=== PATIENT | female | born 1945 | race Caucasian/White ===

== ENCOUNTER 2017-05-06 06:00 | Day surgery (SDC) | payer MEDICARE, OTHER, SELFPAY ==
--- NOTE | 2017-05-06 | COLBX_PTH ---
PATIENT: ANNETTE BOSS LOC: EN U#:[id number] AGE/SX: 71/F ROOM: RE05/06/[address]: Dr. Edenilson Cardoza MD : 1945 BED: DIS: 05/06/2017 SPEC #: [id number] RECD: 05/06/17 15:39 STATUS: LAUREN ARMANDO #: [id number] JUN: 05/06/17 00:[address]: Edenilson Cardoza DEPT: SURGICAL PATHOLOGY RECD BY: Joesph Raza ENTERED: 05/06/17 15:39 SP TYPE: COLON BX OTHR DR: Dr. Miles Reid MD Tissues: Ascending colon Procedures: Surgery Specimen Level IV HEADER OPERATION: Colonoscopy PRE-OP DIAGNOSIS: Screening TISSUE SUBMITTED: Ascending colon biopsy, mucosal fullness MICROSCOPIC DIAGNOSIS Ascending colon, biopsy: Fragment of colonic mucosa, no pathologic diagnosis. SJ:conchis 05/07/17 MICROSCOPIC DESCRIPTION Slides are reviewed. GROSS DESCRIPTION Received in fixative is one container labeled with the patient's name and designated ascending colon biopsy. The specimen consists of one irregular fragment of light montemayor soft tissue that measures 0.2 x 0.2 x 0.1 cm. The specimen is totally submitted in one cassette. / AM:conchis 05/06/17 TC:4 CPT: 65180
[2017-05-06 06:47] VITALS: BP 121/73; PULSE 59; RESP 18; O2SAT 99; BMI 43.1
--- NOTE | 2017-05-06 07:05 | PCM.HP.STD ---
Problem List (1) Screening for intestinal cancer Status: Acute History of Present Illness Date of Admission: 05/06/17 The patient is a 71 year old F who presents for screening colonoscopy. Her previous colonoscopy was 10 years ago. She denies bright red blood per rectum or melena. She is noted to be obese and claims that she has not had any weight loss. She otherwise enjoys stable health. She denies any personal history of colon polyps or colon cancer. Past Medical History Past Medical History (Chronic Problems): Chronic Problems Fibromyalgia (Chronic) Rheumatoid arthritis (Chronic) Recurrent pancreatitis (Chronic) History of atrial fibrillation (Chronic) status post ablation Hyperlipidemia (Chronic) Gastroesophageal reflux disease (Chronic) Familial combined hyperlipidemia (Chronic) Spinal stenosis of lumbar region (Chronic) Morbid obesity with BMI of 40.0-44.9, adult (Chronic) Benign hypertension (Chronic) Allergies Penicillins Allergy (Verified 05/06/17 06:43) Hives Home Medications: Ambulatory Orders Medication Instructions Recorded Ezetimibe [Zetia] 10 mg PO QHS 04/06/13 Amlodipine [Norvasc] 2.5 mg PO DAILY 07/17/15 Etanercept [Enbrel] 50 mg SQ WE 07/17/15 Metoprolol Tartrate [Lopressor 50 mg PO BID 07/17/15 (beta lenora)] Aspirin E.C. [Ecotrin] 81 mg PO DAILY@0800 tablet 07/27/15 Calcium Carb/Vitamin D3/Vit K1 1 each PO DAILY 08/14/16 [Viactiv Soft Chew Tablet] Esomeprazole Mag Trihydrate 20 mg PO BID 08/14/16 [Nexium] Oxybutynin [Ditropan] 5 mg PO BID 08/14/16 Ranitidine [Zantac] 300 mg PO QHS 08/14/16 Oxycodone HCl/Acetaminophen 1 tablet PO BID 05/01/17 [Percocet 5-325] Surgical History: cholecystectomy, total knee arthroplasty - left Smoking Status: Never smoker - *Family History Maternal History Items: Renal Disease - age 70 Paternal History Items: - - age 45 cirrhosis Review of Systems Constitutional: Denies: Anorexia Eyes: Denies: Blurred vision HEENT: Denies: Difficulty Swallowing Cardiovascular: Denies: Chest Pain Respiratory: Denies: Cough Gastrointestinal: Denies: Abdominal Pain Genitourinary: Denies: Dysuria Musculoskeletal: Denies: Leg Pain Neurological: Denies: Balance problems Endocrine: Denies: Change in Body Habitus VTE Information - Inpt Only VTE Present on Admission: No Patient Problems: Active and Suspected Problems Screening for intestinal cancer (Acute) - Physical Exam General: Alert, Oriented x3, Cooperative, No apparent distress HEENT: Atraumatic Oral: Moist Mucosa Neck: Supple Lungs: Clear to auscultation Cardiovascular: Regular rate Abdomen: Bowel Sounds Present, Soft, Non Tender Extremities: No Calf Tenderness Skin: No rashes Musculoskeletal: No Tenderness to Palpation of Joints or Extremities Lymphatic: No Cervical, Supraclavicular, or Inguinal Adenopathy Neurological: Cranial nerves II-XII grossly intact Psych/Mental Status: Normal Affect Vital Signs Pulse Resp BP Pulse Ox 59 L 18 121/73 H 99 05/06/17 06:47 05/06/17 06:47 05/06/17 06:47 05/06/17 06:47 Oxygen Delivery Method Room Air Weight: 235 lb 10.786 oz Body Mass Index (BMI) 43.1 Assessment/Plan Active and Suspected Problems Screening for intestinal cancer (Acute) Patient presents for screening colonoscopy. We have discussed the technique, benefits, risks, alternatives. She has had an opportunity to ask and have questions answered. We will proceed at her discretion. Edenilson Cardoza M.D., F.A.C.S.
--- NOTE | 2017-05-06 07:31 | PCM.OPRPT ---
Problem List (1) Screening for intestinal cancer Status: Acute Report of Operation Date of Procedure: 05/06/17 Pre-Operative Diagnosis: Screening for intestinal malignancy Post-Operative Diagnosis: Diminutive fullness of the distal ascending colon mucosa. Scattered pancolonic diverticulosis. Extensive descending and sigmoid diverticulosis. Grade 2-3 internal hemorrhoids Surgery/Procedure Performed:: Colonoscopy with ascending colon biopsy Description of Surgical Findings:: Informed consent was obtained. 71-year-old female was taken to the endoscopy suite. She was placed in a left lateral decubitus position. Throughout the procedure total 100 mg of Demerol and 5 mg of Versed were given as intravenous sedation. Digital rectal exam demonstrated some moderate hemorrhoidal changes. Slightly tight anal tone. No mass lesions. Flexible colonoscope inserted the rectum advanced through a tortuous sigmoid colon extensively involved with diverticulosis. The scope was advanced through the transverse colon and with transabdominal pressure and placing the patient supine the scope was advanced to the cecum. Visualization of the cecum was challenging due to the patient's body habitus. I felt that I got adequate visualization. The scope was carefully withdrawn and in the distal ascending colon there was a small area of mucosal fullness. Did not actually look to be a polyp but I used a cold forcep to biopsy this area. Hemostasis was intact. The scope was then further withdrawn through the transverse colon descending colon and sigmoid colon. There is been pancolonic diverticulosis identified scattered in the ascending colon transverse colon but it became very extensive in the descending and sigmoid colon. The scope was carefully withdrawn without additional abnormality was retroflexed within the rectum and the hemorrhoidal changes noted. Excess fluid and air was aspirated free the procedure was completed with the patient tolerating it well. Impression Minimal mucosal fullness of the ascending colon with pathology pending. Likely benign. Likely not a polyp. Pancolonic diverticulosis with extensive diverticulosis of the descending and sigmoid colon Pending pathology will recommend follow-up examination colonoscopy in 10 years. Her previous colonoscopy was 10 years prior. Cc: Dr. Reid Procedure was initiated at 0709. The scope inserted 0712. The cecum reached at 0722. The procedure completed at 0728. Edenilson Cardoza M.D., F.A.C.S. Type of Anesthesia:: IV Sedation
[2017-05-06 07:35] VITALS: BP 102/59; BP 121/73; PULSE 65; RESP 18; TEMP 35.9; O2SAT 96
[2017-05-06 07:40] VITALS: BP 110/65; BP 121/73; PULSE 63; RESP 18; O2SAT 94
[2017-05-06 07:45] VITALS: BP 117/105; BP 121/73; PULSE 64; RESP 18; O2SAT 97
[2017-05-06 07:46] VITALS: BP 110/78; BP 121/73; PULSE 67; RESP 18; TEMP 35.8; O2SAT 95
[2017-05-06 07:55] VITALS: BP 121/73
== END 2017-05-06 08:10 | disposition home or self-care (01) ==
LOC: EN 06:00 → AC 06:05
PROVIDERS: Family Provider Family Medicine; PCP Family Medicine; Visit Provider Surgery
PROC: 0DJD8ZZ Inspection of Lower Intestinal Tract, Via Natural or Artificial Opening Endoscopic (ICD-10-PCS; CPT 45378; principal; 2017-05-06 07:25)
DX: Z12.11 Encounter for screening for malignant neoplasm of colon (principal); K57.30 Diverticulosis of large intestine without perforation or abscess without bleeding; K64.8 Other hemorrhoids; M79.7 Fibromyalgia; M06.9 Rheumatoid arthritis, unspecified; Z87.19 Personal history of other diseases of the digestive system; Z86.79 Personal history of other diseases of the circulatory system; E78.4 Other hyperlipidemia; K21.9 Gastro-esophageal reflux disease without esophagitis; M48.061 Spinal stenosis, lumbar region without neurogenic claudication; I10 Essential (primary) hypertension; E66.01 Morbid (severe) obesity due to excess calories; Z68.41 Body mass index [BMI] 40.0-44.9, adult; Z79.82 Long term (current) use of aspirin; Z90.49 Acquired absence of other specified parts of digestive tract; Z96.652 Presence of left artificial knee joint; Z79.899 Other long term (current) drug therapy
CPT/HCPCS: 45380; 88305; J7120

== ENCOUNTER → 2017-05-21 10:02 | Outpatient (CLI) | payer MEDICARE, OTHER, SELFPAY ==
[2017-05-21 12:23] LABS: Amphetamine Urine VISTA NEGATIVE (<1000 ng/mL); Barbiturate Urine VISTA NEGATIVE (< 200 ng/mL); Benzodiazepine Urine VISTA NEGATIVE (< 200 ng/mL); Cocaine Urine VISTA NEGATIVE (< 300 ng/mL); Ecstacy Urine VISTA NEGATIVE (< 500 ng/mL); Methadone Urine VISTA NEGATIVE (< 300 ng/mL); PCP Urine VISTA NEGATIVE (< 25 ng/mL); THC Urine VISTA NEGATIVE (< 50 ng/mL); Vista UDS pH Range 5
== END ==
PROVIDERS: Family Provider Family Medicine; PCP Family Medicine; Visit Provider Anesthesiology Pain Medicine
DX: F11.20 Opioid dependence, uncomplicated (principal)
CPT/HCPCS: 80307

== ENCOUNTER → 2017-08-12 09:46 | Outpatient (CLI) | payer MEDICARE, OTHER, SELFPAY ==
[2017-08-12 12:35] LABS: Absolute Neutrophil Count 2.7 X10^3/uL (2.0-7.7); Basophil# 0.01 X10^3/uL; Basophil% 0.2 % (0-1); Eosinophil# 0.24 X10^3/uL; Hematocrit 40.9 % (37-47); Hemoglobin 13.2 g/dl (12.0-15.0); Mean Corp Hgb Conc 32.3 g/gl (32-36); Mean Corpuscular Hgb 29.2 pg (27.0-32.0); Mean Corpuscular Volume 90.5 fL (81-99); Mean Platelet Vol. 10.3 fl (6.2-12.0); Monocyte# 0.52 X10^3/uL; Monocyte% 10.8 % (0-10); Neutrophil # 2.74 X10^3/uL (2.7-7.7); Platelet Count 178 K/mm3 (150-450); RBC Distribution Width CV 14.1 % (11.6-14.6); RBC Distribution Width SD 46.6 fl (35.1-43.9); Red Blood Count 4.52 M/mm3 (4.2-5.4); White Blood Count 4.8 K/mm3 (4.4-11.0)
[2017-08-12 12:36] LABS: POSITIVE COUNT NO; POSITIVE DIFFERENTIAL NO; POSITIVE MORPHOLOGY NO
[2017-08-12 14:14] LABS: AST(SGOT) 21 U/L (15-37); Alanine Aminotransfer ALT/SGPT 32 U/L (13-56); Albumin, Serum 3.7 g/dL (3.2-5.0); Alkaline Phosphatase 119 U/L (45-117); Anion Gap 5 (5-15); BUN 14 mg/dL (7-18); BUN/Creat Ratio 14.1 RATIO (10-20); Calcium,Total 9.2 mg/dL (8.5-10.1); Chloride 107 mmol/L (98-107); Cholesterol 180 mg/dL (200); Creatinine, Serum 0.99 mg/dL (0.55-1.02); EST Glomerular Filtration Rate 58 mL/min (>60); Est Glom Filt Rate - Afr Amer 70 mL/min (>60); Globulin 3.6 g/dL (2.2-4.2); Glucose 101 mg/dL (74-106); High Density Lipoprotein 44 mg/dL; Potassium 4.2 mmol/L (3.5-5.1); Protein, Total 7.3 g/dL (6.4-8.2); Sodium Level 141 mmol/L (136-145); Triglycerides 153 mg/dL; Very Low Density Lipoprotein 31 mg/dL (5-40)
== END ==
PROVIDERS: Family Provider Family Medicine; PCP Family Medicine; Visit Provider Internal Medicine Cardiovascular Disease
DX: I10 Essential (primary) hypertension (principal); I34.1 Nonrheumatic mitral (valve) prolapse; R00.2 Palpitations; E78.5 Hyperlipidemia, unspecified; M06.09 Rheumatoid arthritis without rheumatoid factor, multiple sites; M79.7 Fibromyalgia; M17.0 Bilateral primary osteoarthritis of knee; K76.0 Fatty (change of) liver, not elsewhere classified; Z79.899 Other long term (current) drug therapy
CPT/HCPCS: 36415; 80048; 80061; 80076; 85025

== ENCOUNTER → 2017-08-22 11:47 | Outpatient (CLI) | payer MEDICARE, OTHER, SELFPAY ==
--- NOTE | 2017-08-22 11:51 | BI_ITS ---
MAMMOGRAPHY - BILATERAL SCREENING REASON FOR EXAM: Female, 71 years old. Routine annual screening examination. PERTINENT HISTORY: Sister with breast cancer. TECHNIQUE: Digital bilateral breast livia (3D mammographic acquisition) in the CC and MLO projections. 2-D mediolateral oblique (MLO) and craniocaudad (CC) views of both breasts were obtained. CAD: Full Field Digital Mammography with Computer Added Detection was performed. COMPARISON: Comparison is made with prior study dated August 05, 2016 and June 14, 2015 FINDINGS: Breast Composition: There are scattered areas of fibroglandular density. There are no dominant masses or suspicious calcifications. Stable 1 cm well-defined nodule in the upper anterior lateral portion of the right breast. No other significant abnormalities are identified. There has been no significant change since the prior study. BI/SCREENING MAMM (CAD), BILAT IMPRESSION: Stable bilateral screening mammogram. Yearly follow-up mammogram recommended. (A) ASSESSMENT CATEGORY: BIRADS Category 2: Benign. A letter regarding these results will be sent to the patient by the facility within 30 days. Approximately 10% of breast cancers are not detected by mammography. A normal mammogram should not delay biopsy of a clinically suspicious abnormality. [id number] Electronically Signed: Wilman Louise MD at 13:58 EDT Tel [phone], Service support ,
== END ==
PROVIDERS: Family Provider Family Medicine; PCP Family Medicine; Visit Provider Family Medicine
DX: Z12.31 Encounter for screening mammogram for malignant neoplasm of breast (principal)
CPT/HCPCS: 77063; 77067

== ENCOUNTER → 2017-09-12 11:20 | Outpatient (CLI) | payer MEDICARE, OTHER, SELFPAY ==
--- NOTE | 2017-09-12 11:23 | RAD_ITS ---
STUDY: X-RAY - CERVICAL SPINE REASON FOR EXAM: Female, 71 years old. Neck pain radiating into right shoulder, no known injury TECHNIQUE: 5 view(s) of the cervical spine were obtained. COMPARISON: None FINDINGS: Normal anterior atlantoaxial articulation. Normal odontoid process. Normal cervical lordosis. There is endplate spondylosis from C4 to C6. There is narrowing of the C4-5, C5-6, and C6-7 disc spaces. There is a 2 mm posterior subluxation of C4 relative to C3 and C5. There is multi-level osseous foraminal stenosis. The soft tissue structures are unremarkable. RAD/Cerv Spine 4 or 5 Views IMPRESSION: Cervical degenerative changes as detailed above. Electronically Signed: Celso Ayala MD at 20:18 EDT , Service support ,
== END ==
PROVIDERS: Family Provider Family Medicine; PCP Family Medicine; Visit Provider Anesthesiology Pain Medicine
DX: M54.2 Cervicalgia (principal)
CPT/HCPCS: 72050

== ENCOUNTER → 2017-09-25 15:31 | Outpatient (CLI) | payer OTHER, MEDICARE, SELFPAY ==
[2017-09-25 17:25] LABS: Absolute Lymphocyte Count 1.64 X10^3/ul (0.83-4.51); Absolute Neutrophil Count 5.7 X10^3/uL (2.0-7.7); Basophil# 0.01 X10^3/uL; Basophil% 0.1 % (0-1); Eosinophil# 0.24 X10^3/uL; Eosinophils% 2.9 % (0-5); Hematocrit 44.7 % (37-47); Hemoglobin 14.5 g/dl (12.0-15.0); Lymphocyte # 1.64 X10^3/ul (4.0); Lymphocyte % 19.6 % (19-41); Mean Corp Hgb Conc 32.4 g/gl (32-36); Mean Corpuscular Hgb 29.1 pg (27.0-32.0); Mean Corpuscular Volume 89.8 fL (81-99); Mean Platelet Vol. 10.4 fl (6.2-12.0); Monocyte# 0.79 X10^3/uL; Monocyte% 9.4 % (0-10); Neutrophil # 5.68 X10^3/uL (2.7-7.7); Neutrophil % 67.8 % (47-70); Platelet Count 232 K/mm3 (150-450); RBC Distribution Width CV 14.2 % (11.6-14.6); RBC Distribution Width SD 46.2 fl (35.1-43.9); Red Blood Count 4.98 M/mm3 (4.2-5.4); White Blood Count 8.4 K/mm3 (4.4-11.0)
[2017-09-25 17:31] LABS: POSITIVE COUNT NO; POSITIVE DIFFERENTIAL NO; POSITIVE MORPHOLOGY NO
[2017-09-25 18:06] LABS: ALB/GLOB Ratio 0.9 RATIO (0.9-2.4); AST(SGOT) 18 U/L (15-37); Alanine Aminotransfer ALT/SGPT 30 U/L (13-56); Albumin, Serum 3.7 g/dL (3.2-5.0); Alkaline Phosphatase 115 U/L (45-117); Amylase 37 U/L (25-115); Anion Gap 7 (5-15); BUN 19 mg/dL (7-18); BUN/Creat Ratio 16.4 RATIO (10-20); Calcium,Total 9.3 mg/dL (8.5-10.1); Chloride 106 mmol/L (98-107); Creatinine, Serum 1.16 mg/dL (0.55-1.02); EST Glomerular Filtration Rate 49 mL/min (>60); Est Glom Filt Rate - Afr Amer 59 mL/min (>60); Globulin 4.2 g/dL (2.2-4.2); Glucose 114 mg/dL (74-106); Lipase 213 U/L (73-393); Potassium 4.1 mmol/L (3.5-5.1); Protein, Total 7.9 g/dL (6.4-8.2); Sodium Level 143 mmol/L (136-145)
== END ==
PROVIDERS: Family Provider Family Medicine; PCP Family Medicine; Visit Provider Family Medicine
DX: R10.10 Upper abdominal pain, unspecified (principal)
CPT/HCPCS: 36415; 80053; 82150; 83690; 85025

== ENCOUNTER → 2017-12-10 11:06 | Outpatient (CLI) | payer OTHER, MEDICARE, SELFPAY ==
--- NOTE | 2017-12-10 11:10 | RAD_ITS ---
STUDY: X-RAY - THORACIC SPINE REASON FOR EXAM: Female, 71 years old. Back pain TECHNIQUE: 2 view(s) of the thoracic spine were obtained. COMPARISON: 06/19/2016 FINDINGS: Normal kyphosis of the thoracic spine. There is no substantial scoliosis. There is multilevel endplate spondylosis of the thoracic vertebrae. There is multilevel disc space narrowing of the thoracic spine. The soft tissue structures are unremarkable. RAD/Thoracic Spine 3 Views IMPRESSION: Degenerative changes without acute findings Electronically Signed: Simon Garcia DO at 11:12 EDT Tel , Service support ,
== END ==
PROVIDERS: Family Provider Family Medicine; PCP Family Medicine; Referring Provider Anesthesiology Pain Medicine; Visit Provider Anesthesiology Pain Medicine
DX: M54.9 Dorsalgia, unspecified (principal)
CPT/HCPCS: 72072

== ENCOUNTER → 2018-01-19 09:58 | Outpatient (CLI) | payer MEDICARE, OTHER, SELFPAY ==
[2018-01-05 11:23] VITALS: BMI 41.1
[2018-01-19 12:09] LABS: Absolute Lymphocyte Count 1.27 X10^3/ul (0.83-4.51); Absolute Neutrophil Count 3.3 X10^3/uL (2.0-7.7); Basophil# 0.01 X10^3/uL; Basophil% 0.2 % (0-1); Eosinophil# 0.22 X10^3/uL; Eosinophils% 4.2 % (0-5); Hematocrit 42.2 % (37-47); Hemoglobin 13.5 g/dl (12.0-15.0); Lymphocyte # 1.27 X10^3/ul (4.0); Lymphocyte % 24.1 % (19-41); Mean Corpuscular Hgb 28.9 pg (27.0-32.0); Mean Corpuscular Volume 90.4 fL (81-99); Mean Platelet Vol. 10.2 fl (6.2-12.0); Monocyte% 9.5 % (0-10); Neutrophil # 3.27 X10^3/uL (2.7-7.7); Platelet Count 189 K/mm3 (150-450); RBC Distribution Width CV 15.7 % (11.6-14.6); RBC Distribution Width SD 51.7 fl (35.1-43.9); Red Blood Count 4.67 M/mm3 (4.2-5.4); White Blood Count 5.3 K/mm3 (4.4-11.0)
[2018-01-19 12:19] LABS: POSITIVE COUNT NO; POSITIVE DIFFERENTIAL NO; POSITIVE MORPHOLOGY NO
[2018-01-19 12:36] LABS: ALB/GLOB Ratio 0.9 RATIO (0.9-2.4); AST(SGOT) 28 U/L (15-37); Alanine Aminotransfer ALT/SGPT 41 U/L (13-56); Albumin, Serum 3.5 g/dL (3.2-5.0); Alkaline Phosphatase 183 U/L (45-117); Anion Gap 4 (5-15); BUN 13 mg/dL (7-18); BUN/Creat Ratio 14.6 RATIO (10-20); Calcium,Total 8.9 mg/dL (8.5-10.1); Chloride 108 mmol/L (98-107); Cholesterol 170 mg/dL (200); Creatinine, Serum 0.89 mg/dL (0.55-1.02); EST Glomerular Filtration Rate 66 mL/min (>60); Est Glom Filt Rate - Afr Amer 79 mL/min (>60); Glucose 105 mg/dL (74-106); High Density Lipoprotein 46 mg/dL; Potassium 4.1 mmol/L (3.5-5.1); Protein, Total 7.5 g/dL (6.4-8.2); Sodium Level 142 mmol/L (136-145); Triglycerides 146 mg/dL; Very Low Density Lipoprotein 29 mg/dL (5-40)
[2018-01-20 10:36] LABS: Bilirubin, Direct 0.17 mg/dL (0.00-0.30)
== END ==
PROVIDERS: Family Provider Family Medicine; PCP Family Medicine; Referring Provider Internal Medicine Cardiovascular Disease; Visit Provider Internal Medicine Cardiovascular Disease
DX: M06.09 Rheumatoid arthritis without rheumatoid factor, multiple sites (principal); M79.7 Fibromyalgia; M17.0 Bilateral primary osteoarthritis of knee; K75.0 Abscess of liver; E78.5 Hyperlipidemia, unspecified; Z79.899 Other long term (current) drug therapy
CPT/HCPCS: 36415; 80053; 80061; 82248; 85025

== ENCOUNTER → 2018-03-11 11:47 | Outpatient (CLI) | payer MEDICARE, OTHER, SELFPAY ==
[2018-03-06 12:14] VITALS: BMI 41.1
[2018-03-11 12:49] LABS: Amphetamine Urine VISTA NEGATIVE (<1000 ng/mL); Barbiturate Urine VISTA NEGATIVE (< 200 ng/mL); Benzodiazepine Urine VISTA NEGATIVE (< 200 ng/mL); Cocaine Urine VISTA NEGATIVE (< 300 ng/mL); Ecstacy Urine VISTA NEGATIVE (< 500 ng/mL); Methadone Urine VISTA NEGATIVE (< 300 ng/mL); PCP Urine VISTA NEGATIVE (< 25 ng/mL); THC Urine VISTA NEGATIVE (< 50 ng/mL); Vista UDS pH Range 5
--- OUTSIDE RECORDS SUMMARY | 2018-05-16 07:50 | XMS RPT_ITS ---
:1945 Author Organization OHIP Support Name Relationship Address Phone SABINO HALE Unavailable [address] + [address] [place] [address] R Unavailable Unavailable Unavailable SABINO HALE Unavailable [address] + [address] [place] [address] R Unavailable Unavailable Unavailable SABINO HALE Unavailable [address] + [address] [place] [address] R Unavailable Unavailable Unavailable SABINO HALE Unavailable [address] + [address] [place] [address] R Unavailable Unavailable Unavailable SABINO HALE Unavailable [address] + [address] [place] [address] R Unavailable Unavailable Unavailable SABINO HALE Unavailable [address] + [address] [place] [address] R Unavailable Unavailable Unavailable SABINO HALE Unavailable [address] + [address] [place] [address] R Unavailable Unavailable Unavailable SABINO HALE Unavailable [address] + [address] [place] [address] R Unavailable Unavailable Unavailable SABINO HALE Unavailable [address] + [address] [place] [address] R Unavailable Unavailable Unavailable SABINO HALE Unavailable [address] + [address] [place] [address] R Unavailable Unavailable Unavailable SABINO HALE Unavailable [address] + [address] [place] [address] R Unavailable Unavailable Unavailable SABINO HALE Unavailable [address] + [address] [place] [address] R Unavailable Unavailable Unavailable SABINO HALE Unavailable [address] + [address] [place] [address] R Unavailable Unavailable Unavailable ANASTASIIA HALEAN Unavailable [address] + [address] [place] [address] R Unavailable Unavailable Unavailable FAIR, SABINO Unavailable [address] [place] [address] R Unavailable Unavailable Unavailable FAIR, SABINO Unavailable [address] [place] [address] HARMONY HOLLAND Unavailable . + ., [place] . R Unavailable Unavailable Unavailable Care Team Providers Name Role Phone Xavier Dubois Attending Unavailable Reid, Miles Referring Unavailable SilvinoXavier Attending Unavailable Reid, Miles Referring Unavailable Nurse, Surgery Attending Unavailable Reid, Miles Referring Unavailable Reid, Miles Primary Care Unavailable Cebul, Edenilson Attending Unavailable Cebul, Edenilson Referring Unavailable Reid, Miles Primary Care Unavailable Cebul, Edenilson Attending Unavailable Cebul, Edenilson Referring Unavailable Reid, Miles Primary Care Unavailable Cebul, Edenilson Consulting Unavailable Basali, Ewa Attending Unavailable Basali, Ewa Referring Unavailable Reid, Miles Primary Care Unavailable Basali, Ewa Attending Unavailable Basali, Ewa Referring Unavailable Reid, Miles Primary Care Unavailable Moodispaw, Miles Attending Unavailable Moodispaw, Miles Referring Unavailable Reid, Miles Primary Care Unavailable Vellanki, Ying Consulting Unavailable Reid, Miles Attending Unavailable Reid, Miles Referring Unavailable Reid, iMles Primary Care Unavailable Basali, Ewa Attending Unavailable Basali, Ewa Referring Unavailable Reid, Miles Primary Care Unavailable Keli, Randell Richardson Attending Unavailable Keli, Randell Richardson Referring Unavailable Reid, Miles Primary Care Unavailable Reilly Muñoz Attending Unavailable Reid, Miles Primary Care Unavailable Basali, Ewa Attending Unavailable Basali, Ewa Referring Unavailable Reid, Miles Primary Care Unavailable SchraderMarika Attending Unavailable Moodispaw, Miles Attending Unavailable Reid, Miles Referring Unavailable Moodispaw, Miles Attending Unavailable Moodispaw, Miles Referring Unavailable Reid, Miles Primary Care Unavailable Vellanki, Ying Consulting Unavailable PROBLEMS PROBLEMS DATE TYPE CONDITION / CODE ATTENDING STATUS SOURCE 03/11/2018 Unknown F11.20 - Opioid Basali, Ayman Active [place] dependence, Community uncomplicated / Hospital F11.20(ICD-10) Repository 03/06/2018 Unknown J20.9 - Acute Xavier Dubois Active [place] bronchitis, Community unspecified / Hospital J20.9(ICD-10) Repository 01/19/2018 Unknown Z79.899 - Other long MoodisMiles shultz Active [place] term (current) drug Community therapy / Hospital Z79.899(ICD-10) Repository 01/19/2018 Unknown M06.09 - Rheumatoid MoodispaMiles wagner Active [place] arthritis without Community rheumatoid factor, Hospital multiple sites / Repository M06.09(ICD-10) 01/19/2018 Unknown M79.7 - Fibromyalgia MoodispaMiles wagner Active [place] / M79.7(ICD-10) [facility] Hospital Repository 01/19/2018 Unknown M17.0 - Bilateral MoodispaMiles wagner Active [place] primary Community osteoarthritis of Hospital knee / M17.0(ICD-10) Repository 01/19/2018 Unknown K75.0 - Abscess of MoodisMiles shultz Active [place] liver / Community K75.0(ICD-10) Hospital Repository 01/19/2018 Unknown E78.5 - MoodispaMiles wagner Active [place] Hyperlipidemia, Community unspecified / Hospital E78.5(ICD-10) Repository 01/05/2018 Unknown M54.9 - Dorsalgia, Basali, Ayman Active [place] unspecified / Community M54.9(ICD-10) Hospital Repository 08/12/2017 Unknown I10 - Essential MoodispaMiles wagner Active [place] (primary) Community hypertension / Hospital I10(ICD-10) Repository 08/12/2017 Unknown I34.1 - Nonrheumatic MoodispaMiles wagner Active [place] mitral (valve) [facility] prolapse / Hospital I34.1(ICD-10) Repository 08/12/2017 Unknown R00.2 - Palpitations MoodispaMiles wagner Active [place] / R00.2(ICD-10) [facility] Hospital Repository 08/12/2017 Unknown K76.0 - Fatty MoodispaMiles wagner Active [place] (change of) liver, Community not elsewhere Hospital classified / Repository K76.0(ICD-10) PROCEDURES PROCEDURES No Procedure Records FoundRESULTS RESULTS URINE DRUG SCREEN Collected: 03/11/2018 Status: F Source: [place] (VISTA) 11:52 AM [facility] REPOSITORY Order Comment: List of Drugs Taken or Suspected? UNK TYPE CODE TESTS RESULT OUT OF RANGE REFERENCE UNITS LAB L505.0075 TO BE Normal CONFIRMED Result Comment: CONFIRMATORY TESTING FOR ALL POSITIVE URINE DRUG SCREEN RESULTS WILL ONLY BE SENT OUT UPON PHYSICIAN ORDER. VISTA Urine Drug Screen methods provide only preliminary analytical test results. A more specific alternate chemical method must be used in order to obtain a confirmed analytical result. Gas chromatography/mass spectrometery (GC/MS) is the preferred confirmatory method. Clinical consideration and professional judgement should be applied to any drug of abuse test result, particularly when preliminary positive results are used. URINE TCA TESTING MUST BE ORDERED SEPARATELY. USE TEST MNEMONIC: [facility] LAB L505.5005 VISTA UDS PH 5 Normal LAB L505.5015 <1000 ng/mL AMPHETAMINES Normal NEGATIVE LAB L505.5025 < 200 ng/mL BARBITIURATES Normal NEGATIVE LAB L505.5035 < 200 ng/mL BENZODIAZIPINE Normal NEGATIVE LAB L505.5045 < 300 ng/mL COCAINE Normal NEGATIVE LAB L505.5055 < 500 ng/mL ECSTACY Normal NEGATIVE LAB L505.5065 < 300 ng/mL METHADONE Normal NEGATIVE LAB L505.5075 < 300 High ng/mL OPIATES POSITIVE LAB L505.5085 < 25 ng/mL PCP Normal NEGATIVE LAB L505.5095 < 50 ng/mL THC Normal NEGATIVE Performed By: #### L505.5000 #### [facility] [address] [place], [address] MISCELLANEOUS LAB Collected: 03/11/2018 Status: F Source: [place] PROCEDURE 11:52 AM [facility] REPOSITORY Order Comment: Test(s) Ordered: [id number] URINE DRUG SCREEN TYPE CODE TESTS RESULT OUT OF RANGE REFERENCE UNITS LAB L801.1541 Normal [facility] [place] Result Comment: TEST RESULT UNITS REF INTERVAL [id number] 6+Oxycodone-Bund Amphetamines, Urine Negative ng/mL Pdrhdz=1450 Amphetamine test includes Amphetamine and Methamphetamine. Barbiturate Negative ng/mL Fbbnzt=661 Benzodiazepines Negative ng/mL Brjsuf=395 Cannabinoids Negative ng/mL Cutoff=20 Cocaine (Metabolite) Negative ng/mL Jqkgnb=925 Opiates Negative ng/mL Sawukt=817 Opiate test includes Codeine, Morphine, Hydromorphone, Hydrocodone. Please Note: Confirmation performed by Mass Spectrometry Oxycodone/Oxymorph Positive Pmqlhz=089 Test includes Oxycodone and Oxymorphone Oxycodone Positive Oxycodone (GC/MS) 2965 ng/mL Jxoobl=978 Oxymorphone Positive Oxymorphone (GC/MS) >3000 ng/mL Vvnvqt=736 TESTING PERFORMED AT [facility]. ORIGINAL REPORT ON FILE IN LAB CONTAINS ADDITIONAL TEST SITE INFORMATION. Performed By: #### L801.1541 #### [facility] [address] [place], [place], [address] URGENT CARE VISIT Observed: 03/06/2018 Status: F Source: [place] REPORT 12:48 PM [facility] REPOSITORY [facility] [address] [place], [place] [address] OFFICE VISIT Date of Service: 03/06/18 MR#: [id number] Acct: [id number] Name: HAWA BOSS Rep #: [id number] : 1945 Provider: Xavier DEL ROSARIO Age/Sex: 72/F Location[place] [facility] Status: Signed Intake Vital Signs03/06/18 Body Mass Index (BMI) 41.1 03/06/18 Height 5 ft 4 in Intake Visit Reasons: SINUS F/U? Chief Complaint: cough Liability Analyst Required: No Accompanied by: self Is patient in pain?: No Allergies Penicillins Allergy (Verified 03/06/18 12:14) Hives atorvastatin [From Lipitor] Adverse Reaction (Severe, Verified 03/06/18 12:14) Elevated LFT Medications Aspirin E.C. [Ecotrin] 81 mg PO DAILY@0800 tab 07/27/15 [Rx Confirmed 03/06/18] Esomeprazole Mag Trihydrate [Nexium] 20 mg PO BID 08/14/16 [History Confirmed 03/06/18] Ranitidine [Zantac] 300 mg PO QHS 08/14/16 [History Confirmed 03/06/18] Oxycodone HCl/Acetaminophen [Percocet 5-325] 1 tab PO BID 05/01/17 [History Confirmed 03/06/18] etanercept 50 mg/mL (0.98 mL) subcutaneous syringe 50 mg SC QWEEK 01/05/18 [History Confirmed 03/06/18] amlodipine 2.5 mg tablet 2.5 mg PO DAILY #90 tab 02/02/18 [Rx Confirmed 03/06/18] ezetimibe 10 mg tablet 10 mg PO QHS #90 tab 02/02/18 [Rx Confirmed 03/06/18] metoprolol tartrate 50 mg tablet 50 mg PO BID #180 tab 02/02/18 [Rx Confirmed 03/06/18] azithromycin 250 mg tablet See Rx Instructions PO .COMPLEX #6 tab 02/14/18 [Rx Confirmed 03/06/18] azithromycin 250 mg tablet See Rx Instructions PO .COMPLEX #6 tab 03/06/18 [Rx Confirmed 03/06/18] benzonatate 100 mg capsule 200 mg PO TID PRN #30 cap 03/06/18 [Rx Confirmed 03/06/18] PFSH Medical History Old myocardial infarction (Acute) Paroxysmal atrial fibrillation (Acute) Nonrheumatic mitral (valve) insufficiency (Acute) Nonrheumatic mitral (valve) prolapse (Acute) Screening for intestinal cancer (Acute) Recurrent pancreatitis (Chronic) Hyperlipidemia (Chronic) Familial combined hyperlipidemia (Chronic) Morbid obesity with BMI of 40.0-44.9, adult (Chronic) Benign hypertension (Chronic) Diverticulitis (Chronic) Fibromyalgia (Chronic) GERD (gastroesophageal reflux disease) (Chronic) Rheumatoid arthritis (Chronic) Spinal stenosis of lumbar region (Chronic) Surgical History H/O endoscopic retrograde cholangiopancreatography (Resolved) History of appendectomy (Resolved) History of back surgery (Resolved) History of cardiac radiofrequency ablation (Resolved 10/2008) History of cholecystectomy (Resolved) History of left knee replacement (Resolved) S/P lumbar fusion (Resolved) Family History Sister Hypertension Other Arthritis Cancer Diabetes Social History Smoking Status: Never smoker alcohol intake: never HPI HPI Chief Complaint: cough Details: HAWA BOSS, is a 72 F who presents to the office today for complaint of continued cough and congestion as well as upper airway tightness. Patient states that her nasal congestion, chest congestion and cough have improved somewhat since last visit however she feels as though she needs another round of antibiotics to feel better. She denies fever, chills, sweats. She describes her cough as minimally productive of green/yellow sputum however denies hemoptysis, shortness of breath or difficulty breathing. No other associated symptoms or alleviating/aggravating factors. ROS Const Constitutional: No fever(s), chills, headache(s), night sweats or abnormal sleep pattern ENT ENT: No headache(s) Resp Respiratory: Positive for cough Cough: Yes productive and pain with cough; no wheezing, hemoptysis or shortness of breath Cardio Cardiology: No chest pain at rest or shortness of breath Neuro Neurology: No headache(s) Psych Psychiatric: No abnormal sleep pattern Aller/Imm Allergy/Immunologic: No wheezing Exam Const General: cooperative, well developed HENMT Head: normal to inspection Ears: hearing grossly normal bilaterally Nose: nasal discharge Mouth: oral mucosae normal Throat: postnasal drainage Resp Effort AND Inspection: normal respiratory effort, no audible wheezes, not labored Auscultation: Bilateral: Clear to Auscultation Cardio Palpation: normal PMI Rate: regular rate Rhythm: regular rhythm Neuro General: alert, CN's II-XI intact bilaterally Psych Appearance: grossly normal Mental Status: mental status grossly normal Assessment AND Plan Problems 1. Acute bronchitis, unspecified organism J20.9 Plan Z-Diony and benzonatate as prescribed today. Encouraged to get plenty of rest, drink lots of clear liquids, and use Tylenol or Ibuprofen (unless contraindicated) for fever and comfort. Patient also educated on other symptomatic management techniques. To be seen in 7-10 days if no improvement; sooner if worsening of symptoms. Patient advised of potential red flags and when appropriate to report to the ED. Patient verbalized understanding and agreement with all the above. Medications New: azithromycin take 500 mg today (day 1), then 250 mg for 4 days (days 2-5) PO 6 tabs 0J20.9 RF Coding Level of Care Code Off vis,est,level 3 Diagnoses Acute bronchitis, unspecified organism J20.9 Bronchitis organism: unspecified organism 03/06/18 1248 <Electronically signed by Xavier Silvino PA> Date Xavier DEL ROSARIO Cosigner Signature: Date (if applicable) CC: URGENT CARE VISIT Observed: 02/14/2018 Status: F Source: [place] REPORT 11:53 AM [facility] REPOSITORY [facility] [address] [place] [address] [address] [place] [address] OFFICE VISIT Date of Service: 02/14/18 MR#: [id number] Acct: [id number] Name: HAWA BOSS Rep #: [id number] : 1945 Provider: Xavier DEL ROSARIO Age/Sex: 72/F Location: [facility] Status: Signed Intake Vital Signs02/14/18 Body Mass Index (BMI) 41.1 02/14/18 Height 5 ft 4 in Intake Visit Reasons: GREEN DRAINAGE Chief Complaint: Cough with drainage Liability Analyst Required: No Accompanied by: Self Is patient in pain?: No Allergies Penicillins Allergy (Verified 02/14/18 11:40) Hives atorvastatin [From Lipitor] Adverse Reaction (Severe, Verified 02/14/18 11:40) Elevated LFT Medications Aspirin E.C. [Ecotrin] 81 mg PO DAILY@0800 tab 07/27/15 [Rx Confirmed 02/14/18] Esomeprazole Mag Trihydrate [Nexium] 20 mg PO BID 08/14/16 [History Confirmed 02/14/18] Ranitidine [Zantac] 300 mg PO QHS 08/14/16 [History Confirmed 02/14/18] Oxycodone HCl/Acetaminophen [Percocet 5-325] 1 tab PO BID 05/01/17 [History Confirmed 02/14/18] etanercept 50 mg/mL (0.98 mL) subcutaneous syringe 50 mg SC QWEEK 01/05/18 [History Confirmed 02/14/18] amlodipine 2.5 mg tablet 2.5 mg PO DAILY #90 tab 02/02/18 [Rx Confirmed 02/14/18] ezetimibe 10 mg tablet 10 mg PO QHS #90 tab 02/02/18 [Rx Confirmed 02/14/18] metoprolol tartrate 50 mg tablet 50 mg PO BID #180 tab 02/02/18 [Rx Confirmed 02/14/18] azithromycin 250 mg tablet See Rx Instructions PO .COMPLEX #6 tab 02/14/18 [Rx Confirmed 02/14/18] methylprednisolone 4 mg tablets in a dose pack 4 mg PO PER PKG DIR 5 Days #21 tab 02/14/18 [Rx Confirmed 02/14/18] PFSH Medical History Old myocardial infarction (Acute) Paroxysmal atrial fibrillation (Acute) Nonrheumatic mitral (valve) insufficiency (Acute) Nonrheumatic mitral (valve) prolapse (Acute) Screening for intestinal cancer (Acute) Recurrent pancreatitis (Chronic) Hyperlipidemia (Chronic) Familial combined hyperlipidemia (Chronic) Morbid obesity with BMI of 40.0-44.9, adult (Chronic) Benign hypertension (Chronic) Diverticulitis (Chronic) Fibromyalgia (Chronic) GERD (gastroesophageal reflux disease) (Chronic) Rheumatoid arthritis (Chronic) Spinal stenosis of lumbar region (Chronic) Surgical History H/O endoscopic retrograde cholangiopancreatography (Resolved) History of appendectomy (Resolved) History of back surgery (Resolved) History of cardiac radiofrequency ablation (Resolved 10/2008) History of cholecystectomy (Resolved) History of left knee replacement (Resolved) S/P lumbar fusion (Resolved) Family History Sister Hypertension Other Arthritis Cancer Diabetes Social History Smoking Status: Never smoker alcohol intake: never HPI HPI Chief Complaint: Cough with drainage Details: HAWA BOSS, is a 72 F who presents to the office today for complaint of cough and congestion for the past week. Patient states her cough is productive of green/yellow sputum however denies hemoptysis, shortness of breath or difficulty breathing. Patient does state that she is on Enbrel for rheumatoid arthritis which caused her to get bronchitis multiple times throughout the winter periods. She denies fever, chills, sweats. No nausea, vomiting, diarrhea. No other associated symptoms or alleviating/aggravating factors. ROS Const Constitutional: No fever(s), chills, headache(s), night sweats or abnormal sleep pattern ENT ENT: Positive for nasal discharge, nasal congestion and post nasal drip; no headache(s), ear pain, ear discharge or sore throat Resp Respiratory: Positive for cough Cough: Yes productive and pain with cough; no wheezing, hemoptysis or shortness of breath Cardio Cardiology: No chest pain at rest or shortness of breath Neuro Neurology: No headache(s), behavioral changes or confusion Psych Psychiatric: No abnormal sleep pattern, No behavioral changes, No confusion Aller/Imm Allergy/Immunologic: No wheezing Exam Const General: cooperative, well developed HENMT Head: normal to inspection Ears: hearing grossly normal bilaterally Nose: nasal discharge clear Mouth: oral mucosae normal Throat: abnormal tonsil bilaterally, postnasal drainage Resp Effort AND Inspection: normal respiratory effort, no audible wheezes, not labored Auscultation: Bilateral: Clear to Auscultation Cardio Palpation: normal PMI Rate: regular rate Rhythm: regular rhythm Neuro General: alert, CN's II-XI intact bilaterally Psych Appearance: grossly normal Mental Status: mental status grossly normal Assessment AND Plan Problems 1. Acute bronchitis, unspecified organism J20.9 Status Acute Plan Z-Diony and Medrol Dosepak as prescribed today. Encouraged to get plenty of rest, drink lots of clear liquids, and use Tylenol or Ibuprofen (unless contraindicated) for fever and comfort. Patient also educated on other symptomatic management techniques. To be seen in 7-10 days if no improvement; sooner if worsening of symptoms. Patient advised of potential red flags and when appropriate to report to the ED. Patient verbalized understanding and agreement with all the above. Medications New: azithromycin take 500 mg today (day 1), then 250 mg for 4 days (days 2-5) PO 6 tabs 0RF Coding Level of Care Code Off vis,est,level 3 Diagnoses Acute bronchitis, unspecified organism J20.9 Bronchitis organism: unspecified organism 02/14/18 1153 <Electronically signed by Xavier DEL ROSARIO> Date Xavier DEL ROSARIO Cosigner Signature: Date (if applicable) CC: CBC W/DIFF, AUTOMATED Collected: 01/19/2018 Status: F Source: [place] 10:05 AM [facility] REPOSITORY Order Comment: DR HARDY ORDERED LIPID LIVER DR MILNER ORDERED CMP CBCD TYPE CODE TESTS RESULT OUT OF RANGE REFERENCE UNITS LAB L100.1000 4.4-11.0 K/mm3 Normal WBC 5.3 LAB L100.1200 4.2-5.4 M/mm3 Normal RBC 4.67 LAB L100.1300 12.0-15.0 g/dl Normal HGB 13.5 LAB L100.1400 37-47 % Normal HCT 42.2 LAB L100.1500 81-99 fL Normal MCV 90.4 LAB L100.1600 27.0-32.0 pg Normal MCH 28.9 LAB L100.1700 32-36 g/gl Normal MCHC 32.0 LAB L100.1810 11.6-14.6 % High RDW CV 15.7 LAB L100.1820 35.1-43.9 fl High RDW SD 51.7 LAB L100.1900 150-450 K/mm3 Normal PLT 189 LAB L100.2000 6.2-12.0 fl Normal MPV 10.2 LAB L100.2100 47-70 % Normal NEUT% 62.0 LAB L100.2200 19-41 % Normal LY% 24.1 LAB L100.2300 0-10 % Normal MONO% 9.5 LAB L100.2400 0-5 % Normal EO% 4.2 LAB L100.2500 0-1 % Normal BASO% 0.2 LAB L100.2550 0.0-0.9 % Normal IM GRAN % 0.000 Result Comment: IG% - Immature Granulocytes (promyelocytes, myelocytes and metamyelocytes) > 1% indicates that a LEFT SHIFT is Present. LAB L100.2620 2.0-7.7 X10 3/uL Normal Absolute Neut 3.3 LAB L100.2720 0.83-4.51 X10 3/ul Normal Absolute Lymph 1.27 Performed By: #### L100.0100 #### [facility] [address] [place], [address] COMPREHENSIVE METABOLIC Collected: 01/19/2018 Status: F Source: [place] PROFIL 10:05 AM [facility] REPOSITORY Order Comment: PLEASE ADD DBIL TO BLOOD FROM 01-19-[address] HARDY ORDERED LIPID LIVER DR MILNER ORDERED CMP CBCD TYPE CODE TESTS RESULT OUT OF RANGE REFERENCE UNITS LAB L501.0100 74-106 mg/dL Normal GLU 105 Result Comment: Fasting Glucose result from 100 to 125 mg/dL suggests IMPAIRED HOMEOSTASIS per A.D.A. criteria. Please note revised GLUCOSE reference range effective 2017. LAB L501.1000 7-18 mg/dL Normal BUN 13 LAB L501.1100 0.55-1.02 mg/dL Normal CREAT,SERUM 0.89 Result Comment: The validity of the calculated GFR AND GFRAA in patients over 70 years has not been determined. Clinical correlation is essential. LAB L501.1110 >60 mL/min Normal EST GFR 66 Result Comment: Non- GFR Calc LAB L501.1115 >60 mL/min Normal EST GFR - AA 79 Result Comment: GFR Calc LAB L501.1300 10-20 RATIO Normal BUN/CRE 14.6 LAB L501.1500 6.4-8.2 g/dL T Normal PROT 7.5 LAB L501.1800 3.2-5.0 g/dL Normal ALB 3.5 LAB L501.1950 2.2-4.2 g/dL Normal GLOB 4.0 LAB L501.2000 0.9-2.4 RATIO Normal A/G 0.9 LAB L501.2200 8.5-10.1 mg/dL CA Normal 8.9 LAB L501.4100 15-37 U/L Normal AST 28 LAB L501.4305 45-117 U/L High ALK P 183 LAB L501.4405 13-56 U/L Normal ALT 41 LAB L501.4600 0.20-1.00 mg/dL T Normal BILI 0.60 LAB L501.5300 136-145 mmol/L NA Normal 142 LAB L501.5600 3.5-5.1 mmol/L K Normal 4.1 LAB L501.5900 98-107 mmol/L High CL 108 LAB L501.6100 21.0-32.0 mmol/L Normal CO2 30.0 LAB L501.6200 5-15 Low GAP 4 Performed By: #### L500.4050, L500.4100, L501.4700 #### [facility] [address] [place], [place], [address] LIPID PROFILE Collected: 01/19/2018 Status: F Source: [place] 10:05 AM [facility] REPOSITORY Order Comment: PLEASE ADD DBIL TO BLOOD FROM 01-19-[address] HARDY ORDERED LIPID LIVER DR MILNER ORDERED CMP CBCD TYPE CODE TESTS RESULT OUT OF RANGE REFERENCE UNITS LAB L501.4900 200 mg/dL Normal CHOL 170 Result Comment: <200 mg/dL Desirable 200-240 mg/dL Borderline >240 mg/dL High Risk LAB L501.5000 mg/dL Normal TRIG 146 Result Comment: The drugs N-Acetylcysteine and Metamizole may falsely depress this assay. Serum Triglycerides Reference Interval Normal <150 mg/dL Borderline high 150 - 199 mg/dL High 200 - 499 mg/dL Very High > or = 500 mg/dL LAB L501.6400 mg/dL Normal HDL 46 Result Comment: The drugs N-Acetylcysteine and Metamizole may falsely depress this assay. Reference Range HDL <40 mg/dL Low HDL Cholesterol HDL >or= 60 mg/dL High HDL Cholesterol LAB L501.6500 0-130 mg/dL Normal LDL 95 LAB L501.6600 5-40 mg/dL Normal VLDL 29 Performed By: #### L500.4050, L500.4100, L501.4700 #### [facility] [address] [place], [address] BILIRUBIN, DIRECT Collected: 01/19/2018 Status: F Source: [place] 10:05 AM [facility] REPOSITORY Order Comment: PLEASE ADD DBIL TO BLOOD FROM 01-19-[address] HARDY ORDERED LIPID LIVER DR MILNER ORDERED CMP CBCD TYPE CODE TESTS RESULT OUT OF RANGE REFERENCE UNITS LAB L501.4700 0.00-0.30 mg/dL Normal D BILI 0.17 Performed By: #### L500.4050, L500.4100, L501.4700 #### [facility] [address] [place], [address] CARDIOLOGY VISIT Observed: 01/05/2018 Status: F Source: [place] REPORT 12:07 PM [facility] REPOSITORY [facility] [address] [place] [address] OFFICE VISIT Date of Service: 01/05/18 MR#: [id number] Acct: [id number] Name: HAWA BOSS Rep #: [id number] : 1945 Provider: Miles Hardy MD Age/Sex: 72/F [place] [facility] Status: Signed HPI HPI Details: HAWA BOSS, is a 72 F who presents to the office today for outpatient cardiovascular follow-up. Overall from a cardiac standpoint she states she is doing well. She denies any ongoing issues of classic angina pectoris and she has had no issues of CHF or pulmonary edema. There has been no near syncope or syncope. She has not noted any obvious palpitations or rapid heart rates. She states unfortunately because of her corticosteroid injections to her back she feels her appetite has increased. She feels that her diet is not been well controlled. She believes she has gained weight. She also notes since doing this that her glucose levels have been running somewhat higher. Intake Vital Signs01/05/18 Height 5 ft 4 in 01/05/18 Weight: 240 lb 01/05/18 Body Mass Index (BMI) 41.1 01/05/18 Blood Pressure 134/78 H Intake Visit Reasons: 1 Y FU Allergies Penicillins Allergy (Verified 01/05/18 11:24) Hives atorvastatin [From Lipitor] Adverse Reaction (Severe, Verified 01/05/18 11:24) Elevated LFT Medications Aspirin E.C. [Ecotrin] 81 mg PO DAILY@0800 tab 07/27/15 [Rx Confirmed 01/05/18] Esomeprazole Mag Trihydrate [Nexium] 20 mg PO BID 08/14/16 [History Confirmed 01/05/18] Ranitidine [Zantac] 300 mg PO QHS 08/14/16 [History Confirmed 01/05/18] Oxycodone HCl/Acetaminophen [Percocet 5-325] 1 tab PO BID 03/08/18 [History Confirmed 01/05/18] ezetimibe 10 mg tablet 10 mg PO QHS #90 tab 05/26/17 [Rx Confirmed 01/05/18] amlodipine 2.5 mg tablet 2.5 mg PO DAILY #90 tab 11/07/17 [Rx Confirmed 01/05/18] metoprolol tartrate 50 mg tablet 50 mg PO BID #180 tab 11/07/17 [Rx Confirmed 01/05/18] etanercept 50 mg/mL (0.98 mL) subcutaneous syringe 50 mg SC QWEEK 01/05/18 [History Confirmed 01/05/18] [facility] Medical History Old myocardial infarction (Acute) Paroxysmal atrial fibrillation (Acute) Nonrheumatic mitral (valve) insufficiency (Acute) Nonrheumatic mitral (valve) prolapse (Acute) Screening for intestinal cancer (Acute) Recurrent pancreatitis (Chronic) Hyperlipidemia (Chronic) Familial combined hyperlipidemia (Chronic) Morbid obesity with BMI of 40.0-44.9, adult (Chronic) Benign hypertension (Chronic) Diverticulitis (Chronic) Fibromyalgia (Chronic) GERD (gastroesophageal reflux disease) (Chronic) Rheumatoid arthritis (Chronic) Spinal stenosis of lumbar region (Chronic) Surgical History H/O endoscopic retrograde cholangiopancreatography (Resolved) History of appendectomy (Resolved) History of back surgery (Resolved) History of cardiac radiofrequency ablation (Resolved 10/2008) History of cholecystectomy (Resolved) History of left knee replacement (Resolved) S/P lumbar fusion (Resolved) Family History Sister Hypertension Social History Smoking Status: Never smoker alcohol intake: never ROS Const Const: Positive for weight gain (increased weight, patient receives steroid injections for back pain); negative for fatigue, weakness, weight loss, frequent falls or excessive sweating Eyes Eyes: Negative for change in vision, blurry vision or transient loss of vision ENT ENT: Negative for dizziness or balance problems Cardio Chest Pain: No Palpitations: No Edema: None Muscle aches with walking: None Resp Respiratory: Positive for SOB with activity; negative for SOB at rest GI GI: Negative vomiting or vomiting blood/hematemesis : Negative for hematuria Musc Musc: Positive for muscle aches/ myalgia (chronic back pain) and joint pain (HX rheumatoid arthritis); negative for balance problems or muscle weakness Skin Skin: Negative non-healing lesions or rash Neuro Neuro: Positive for lightheadedness (occasional, varies); negative for weakness, blurry vision, dizziness, frequent falls or orthostatic symptoms Earle Hematologic/Lymphatic: Negative for easy bleeding Endo Endo: Negative for fatigue or excessive sweating Psych Psych: Negative for anxiety or depression Allergy Allergy/Immunology: Negative for hives, Negative for rash Cardiology Exam Const Appearance: cooperative, healthy appearing, comfortable, no acute distress, well developed and well groomed Nutritional Appearance: obese Orientation: alert, awake and oriented x3 Limitations: altered mental status Head Head: normal to inspection, normocephalic and atraumatic Ears: hearing grossly normal bilaterally Nose: external nose normal Face and Sinus: face symmetric Mouth: oral mucosae normal Eyes Eyelids: eyelids normal Conjunctivae: conjunctivae normal Pupils: PERRL EOM: EOM intact bilaterally Neck Neck: normal visual inspection and full ROM Carotids: normal carotid upstroke Chest Chest inspection: normal inspection of the chest, symmetric chest movement and normal respiratory effort Auscultation: Bilateral: Clear to Auscultation Cardio Palpation: normal PMI Rate: regular rate Rhythm: regular rhythm Heart sounds: S1 normal and S2 normal GI GI: obese, normal to inspection, soft and bowel sounds present Neuro General: alert, awake, oriented x3 and moves all extremities Skin Skin: no rashes or lesions noted Extremities Pulses: Normal: Right Radial Pulse, Left Radial Pulse Lower Extremity Edema: None: Bilateral Psych Psychological: normal affect Supplemental Info Transthoracic echocardiogram: 08/13/2012 Summary Normal LV size. Left ventricular systolic function is normal. The estimated ejection fraction is 65 %. Transmitral and pulmonary venous doppler flow suggestive of impaired relaxation of left ventricle Mild (1+) tricuspid valve insufficiency. Stress test: 04/17/2005 TECHNIQUE The patient was injected with 14.2 mCi of Tc99m Cardiolite and resting SPECT images were acquired in the horizontal long, vertical long, and short axes views. The patient subsequently underwent stress using a Donald protocol and exercised 5 minutes and 1 second, reaching a peak heart rate of 144, which is 90% of maximum predicted. At peak stress, the patient was injected with 39 mCi of Tc99m Cardiolite and stress SPECT images were acquired in the horizontal long, vertical long, and short axes views. INTERPRETATION Resting images demonstrate a small subtle decrease in apical activity which appears to improve with stress with brightening at end systole by gated SPECT and normal wall motion consistent with apical thinning. The remainder of the left ventricle appears to be well perfused both at rest and with stress. There are no significant fixed defects to suggest infarct. There are no reversible defects developing with stress to suggest inducible ischemia. Estimated ejection fraction by gated SPECT imaging was 78% with normal wall motion and brightening in all segments. CONCLUSION 1. Small subtle decrease in apical activity at rest improving with stress consistent with apical thinning. 2. No fixed defects to suggest infarct. Cardiac cath: 07/13/2008 Conclusion 1. Normal left ventricular systolic function, ejection traction 65%. 2 Mild mitral annular calcification 1. Moderate mitral valve prolapse with mild insufficiency. 4. Angiographically normal coronaries. Electrophysiology study: 11/02/2008: Baseline persistent atrial fibrillation with controlled ventricular response with post RFA sinus rhythm with normal intracardiac intervals with no inducible PSVT, VT, or VF Holter monitor: 08/16/2012: Conclusion: Demonstrating sinus rhythm with periods of atrial tachyarrhythmia Assessment AND Plan 1. Nonrheumatic mitral (valve) prolapse I34.1 Plan At the present time she does have a history of MVP. She appears without significant change based on history or exam. It was not felt at this time she required further cardiac diagnostic studies or therapeutic intervention. 2. Nonrheumatic mitral valve insufficiency I34.0 Plan She does have a history of mitral valve prolapse with MR. Again she appears to be stable at this time. She will continue medical manner and follow-up. 3. Paroxysmal atrial fibrillation I48.0 Plan She has a history of PAF status post EPS/RFA. She appears to be doing well with no obvious recurrent symptoms. She will continue to be followed. 4. Old myocardial infarction I25.2 Plan She has a history of a previous non-ST segment elevation NV with a what was reported as angiographically normal-appearing coronary arteries. This may have been a type II event. At the present time she appears to be doing well on her current medical management. She will continue to be followed. 5. Hyperlipidemia E78.5 Plan Her lipid labs have been reviewed. She is continuing to follow- up for these as deemed appropriate. She will continue her current medical therapy. 6. Benign hypertension I10 Plan Her blood pressure appears to be reasonably well controlled. Again she will continue her current medical management. 7. Morbid obesity with BMI of 40.0-44.9, adult E66.01; Z68.41 Plan She was counseled on dietary therapy and attempt to hopefully bring her weight under better control. If her weight comes under better control hopefully will her concerns of hyperglycemia as well as her lipid labs, blood pressure, etc. Plan Detail Additional Comments Thank you for allowing me to participate in the care of your patient. Please don't hesitate to call if any issues arise. This note was generated using a voice recognition system and there may be incorrect words, spelling or punctuation that were not noted when reviewing the office note prior to saving. Follow Up 1 Year (PFM) Coding Level of Care Code Off vis,est,level 3 Diagnoses Nonrheumatic mitral (valve) prolapse I34.1 Nonrheumatic mitral valve insufficiency I34.0 Paroxysmal atrial fibrillation I48.0 Old myocardial infarction I25.2 Hyperlipidemia E78.5 Hyperlipidemia type: unspecified Benign hypertension I10 Morbid obesity with BMI of 40.0-44.9, adult E66.01; Z68.41 Coding Level of Care Code Off vis,est,level 3 Diagnoses Nonrheumatic mitral (valve) prolapse I34.1 Nonrheumatic mitral valve insufficiency I34.0 Paroxysmal atrial fibrillation I48.0 Old myocardial infarction I25.2 Hyperlipidemia E78.5 Hyperlipidemia type: unspecified Benign hypertension I10 Morbid obesity with BMI of 40.0-44.9, adult E66.01; Z68.41 01/05/18 1207 <Electronically signed by Miles Hardy MD> Date Miles Hardy MD Cosigner Signature: Date (if applicable) CC: Miles Reid MD THORACIC SPINE 3 Observed: 12/10/2017 Status: F Source: [place] 11:10 AM [facility] [place] REPOS[facility] Imaging Services [address] [place] [address] Thoracic Spine 3 Views MR#: [id number] Acct: [id number] Name: HAWA BOSS Rep #: [id number] : 1945 F 71 From: Simon Garcia DO PCP: Miles Reid MD Status: REG CLI Study: Thoracic Spine 3 Views Date of Exam: 12/10/17 Exam# [id number] Ordering Dr: Ewa Resendiz MD STUDY: X-RAY - THORACIC SPINE REASON FOR EXAM: Female, 71 years old. Back pain TECHNIQUE: 2 view(s) of the thoracic spine were obtained. COMPARISON: 06/19/2016 FINDINGS: Normal kyphosis of the thoracic spine. There is no substantial scoliosis. There is multilevel endplate spondylosis of the thoracic vertebrae. There is multilevel disc space narrowing of the thoracic spine. The soft tissue structures are unremarkable. RAD/Thoracic Spine 3 Views IMPRESSION: Degenerative changes without acute findings Electronically Signed: Simon Garcia DO at 11:12 EDT Tel , Service support , CC: Ewa Resendiz MD; Miles Reid MD Program Evaluator: Signed CBC W/DIFF, AUTOMATED Collected: 09/25/2017 Status: F Source: [place] 3:32 PM [facility] REPOSITORY Order Comment: Order Date: 09/25/17 Order Info: 0184-1 - CBCD TYPE CODE TESTS RESULT OUT OF RANGE REFERENCE UNITS LAB L100.1000 4.4-11.0 K/mm3 Normal WBC 8.4 LAB L100.1200 4.2-5.4 M/mm3 Normal RBC 4.98 LAB L100.1300 12.0-15.0 g/dl Normal HGB 14.5 LAB L100.1400 37-47 % Normal HCT 44.7 LAB L100.1500 81-99 fL Normal MCV 89.8 LAB L100.1600 27.0-32.0 pg Normal MCH 29.1 LAB L100.1700 32-36 g/gl Normal MCHC 32.4 LAB L100.1810 11.6-14.6 % Normal RDW CV 14.2 LAB L100.1820 35.1-43.9 fl High RDW SD 46.2 LAB L100.1900 150-450 K/mm3 Normal PLT 232 LAB L100.2000 6.2-12.0 fl Normal MPV 10.4 LAB L100.2100 47-70 % Normal NEUT% 67.8 LAB L100.2200 19-41 % Normal LY% 19.6 LAB L100.2300 0-10 % Normal MONO% 9.4 LAB L100.2400 0-5 % Normal EO% 2.9 LAB L100.2500 0-1 % Normal BASO% 0.1 LAB L100.2550 0.0-0.9 % Normal IM GRAN % 0.200 Result Comment: IG% - Immature Granulocytes (promyelocytes, myelocytes and metamyelocytes) > 1% indicates that a LEFT SHIFT is Present. LAB L100.2620 2.0-7.7 X10 3/uL Normal Absolute Neut 5.7 LAB L100.2720 0.83-4.51 X10 3/ul Normal Absolute Lymph 1.64 Performed By: #### L100.0100, L500.4050, L501.2400, L501.2450 #### [facility] [address] [facility] [place], [place], [address] COMPREHENSIVE METABOLIC Collected: 09/25/2017 Status: F Source: [place] GUAJARDO 3:32 PM [facility] REPOSITORY Order Comment: Order Date: 09/25/17 Order Info: 0786-1 - CMP Order Info: 1798-8 - KISHOR Order Info: 3040-3 - LIPASE TYPE CODE TESTS RESULT OUT OF RANGE REFERENCE UNITS LAB L501.0100 74-106 mg/dL High GLU 114 Result Comment: Fasting Glucose result from 100 to 125 mg/dL suggests IMPAIRED HOMEOSTASIS per A.D.A. criteria. Please note revised GLUCOSE reference range effective 2017. LAB L501.1000 7-18 mg/dL High BUN 19 LAB L501.1100 0.55-1.02 mg/dL High CREAT,SERUM 1.16 Result Comment: The validity of the calculated GFR AND GFRAA in patients over 70 years has not been determined. Clinical correlation is essential. LAB L501.1110 >60 mL/min Low EST GFR 49 Result Comment: Non- GFR Calc LAB L501.1115 >60 mL/min Low EST GFR - AA 59 Result Comment: GFR Calc LAB L501.1300 10-20 RATIO Normal BUN/CRE 16.4 LAB L501.1500 6.4-8.2 g/dL T Normal PROT 7.9 LAB L501.1800 3.2-5.0 g/dL Normal ALB 3.7 LAB L501.1950 2.2-4.2 g/dL Normal GLOB 4.2 LAB L501.2000 0.9-2.4 RATIO Normal A/G 0.9 LAB L501.2200 8.5-10.1 mg/dL CA Normal 9.3 LAB L501.4100 15-37 U/L Normal AST 18 LAB L501.4305 45-117 U/L Normal ALK P 115 LAB L501.4405 13-56 U/L Normal ALT 30 LAB L501.4600 0.20-1.00 mg/dL T Normal BILI 0.40 LAB L501.5300 136-145 mmol/L NA Normal 143 LAB L501.5600 3.5-5.1 mmol/L K Normal 4.1 LAB L501.5900 98-107 mmol/L CL Normal 106 LAB L501.6100 21.0-32.0 mmol/L Normal CO2 30.0 LAB L501.6200 5-15 Normal GAP 7 Performed By: #### L100.0100, L500.4050, L501.2400, L501.2450 #### [facility] [address] [place], [address] AMYLASE Collected: 09/25/2017 Status: F Source: [place] 3:32 PM [facility] REPOS[facility] Order Comment: Order Date: 09/25/17 Order Info: [id number] - CMP Order Info: 1798-8 - KISHOR Order Info: 3040-3 - LIPASE TYPE CODE TESTS RESULT OUT OF RANGE REFERENCE UNITS LAB L501.2400 25-115 U/L Normal KISHOR 37 Performed By: #### L100.0100, L500.4050, L501.2400, L501.2450 #### [facility] [address] [place], [address] LIPASE Collected: 09/25/2017 Status: F Source: [place] 3:32 PM [facility] REPOSIT[facility] Order Comment: Order Date: 09/25/17 Order Info: 0786-1 - CMP Order Info: 1798-8 - KISHOR Order Info: 3040-3 - LIPASE TYPE CODE TESTS RESULT OUT OF RANGE REFERENCE UNITS LAB L501.2450 73-393 U/L Normal LIPASE 213 Performed By: #### L100.0100, L500.4050, L501.2400, L501.2450 #### [facility] [address] [place], [address] CERV SPINE 4 OR 5 Observed: 09/12/2017 Status: F Source: [place] VIEWS 11:23 AM [facility] REPOSITORY [facility] Imaging Services [address] [place] [address] Cerv Spine 4 or 5 Views MR#: [id number] Acct: [id number] Name: HAWA BOSS Rep #: [id number] : 1945 F 71 From: Celso Ayala MD PCP: Miles Reid MD Status: REG CLI Study: Cerv Spine 4 or 5 Views Date of Exam: 09/12/17 Exam# [id number] Ordering Dr: Ewa Resendiz MD STUDY: X-RAY - CERVICAL SPINE REASON FOR EXAM: Female, 71 years old. Neck pain radiating into right shoulder, no known injury TECHNIQUE: 5 view(s) of the cervical spine were obtained. COMPARISON: None FINDINGS: Normal anterior atlantoaxial articulation. Normal odontoid process. Normal cervical lordosis. There is endplate spondylosis from C4 to C6. There is narrowing of the C4-5, C5-6, and C6-7 disc spaces. There is a 2 mm posterior subluxation of C4 relative to C3 and C5. There is multi-level osseous foraminal stenosis. The soft tissue structures are unremarkable. RAD/Cerv Spine 4 or 5 Views IMPRESSION: Cervical degenerative changes as detailed above. Electronically Signed: Celso Ayala MD at 20:18 EDT , Service support , CC: Ewa Resendiz MD; Miles Reid MD Program Evaluator: Signed SCREENING MAMM (CAD), Observed: 08/22/2017 Status: F Source: [facility] 11:52 AM [facility] REPOSITORY [facility] Imaging Services [address] [place] [address] SCREENING MAMM (CAD), BILAT MR#: [id number] Acct: [id number] Name: HAWA BOSS Rep #: [id number] : 1945 F 71 From: Wilman Louise MD PCP: Miles Reid MD Status: REG CLI Study: SCREENING MAMM (CAD), BILAT Date of Exam: 08/22/17 Exam# [id number] Ordering Dr: Miles Reid MD MAMMOGRAPHY - BILATERAL SCREENING REASON FOR EXAM: Female, 71 years old. Routine annual screening examination. PERTINENT HISTORY: Sister with breast cancer. TECHNIQUE: Digital bilateral breast livia (3D mammographic acquisition) in the CC and MLO projections. 2-D mediolateral oblique (MLO) and craniocaudad (CC) views of both breasts were obtained. CAD: Full Field Digital Mammography with Computer Added Detection was performed. COMPARISON: Comparison is made with prior study dated August 05, 2016 and June 14, 2015 FINDINGS: Breast Composition: There are scattered areas of fibroglandular density. There are no dominant masses or suspicious calcifications. Stable 1 cm well-defined nodule in the upper anterior lateral portion of the right breast. No other significant abnormalities are identified. There has been no significant change since the prior study. BI/SCREENING MAMM (CAD), BILAT IMPRESSION: Stable bilateral screening mammogram. Yearly follow-up mammogram recommended. (A) ASSESSMENT CATEGORY: BIRADS Category 2: Benign. A letter regarding these results will be sent to the patient by the facility within 30 days. Approximately 10% of breast cancers are not detected by mammography. A normal mammogram should not delay biopsy of a clinically suspicious abnormality. [id number] Electronically Signed: Wilman Louise MD at 13:58 EDT Tel [phone], Service support , CC: Miles Reid MD Program Evaluator: Signed CBC W/DIFF, AUTOMATED Collected: 08/12/2017 Status: F Source: [place] 9:57 AM [facility] REPOSITORY Order Comment: DR. MILNER ORDERED CMP AND CBCD DR. HARDY ORDERED LIVER AND HEPATIC TYPE CODE TESTS RESULT OUT OF RANGE REFERENCE UNITS LAB L100.1000 4.4-11.0 K/mm3 Normal WBC 4.8 LAB L100.1200 4.2-5.4 M/mm3 Normal RBC 4.52 LAB L100.1300 12.0-15.0 g/dl Normal HGB 13.2 LAB L100.1400 37-47 % Normal HCT 40.9 LAB L100.1500 81-99 fL Normal MCV 90.5 LAB L100.1600 27.0-32.0 pg Normal MCH 29.2 LAB L100.1700 32-36 g/gl Normal MCHC 32.3 LAB L100.1810 11.6-14.6 % Normal RDW CV 14.1 LAB L100.1820 35.1-43.9 fl High RDW SD 46.6 LAB L100.1900 150-450 K/mm3 Normal PLT 178 LAB L100.2000 6.2-12.0 fl Normal MPV 10.3 LAB L100.2100 47-70 % Normal NEUT% 57.0 LAB L100.2200 19-41 % Normal LY% 27.0 LAB L100.2300 0-10 % High MONO% 10.8 LAB L100.2400 0-5 % Normal EO% 5.0 LAB L100.2500 0-1 % Normal BASO% 0.2 LAB L100.2550 0.0-0.9 % Normal IM GRAN % 0.000 Result Comment: IG% - Immature Granulocytes (promyelocytes, myelocytes and metamyelocytes) > 1% indicates that a LEFT SHIFT is Present. LAB L100.2620 2.0-7.7 X10 3/uL Normal Absolute Neut 2.7 LAB L100.2720 0.83-4.51 X10 3/ul Normal Absolute Lymph 1.30 Performed By: #### L100.0100 #### [facility] [address] [place], [address] BASIC METABOLIC Collected: 08/12/2017 Status: F Source: [place] PROFILE (BMP) 9:55 AM [facility] REPOSITORY Order Comment: Order Date: 01/03/17 Order Info: 0788-1 - *Hepatic Function Panel Order Info: [id number] - *Lipid Profile CC PCP Comments: 12 hours fasting, may have water. TYPE CODE TESTS RESULT OUT OF RANGE REFERENCE UNITS LAB L501.0100 74-106 mg/dL Normal GLU 101 Result Comment: Fasting Glucose result from 100 to 125 mg/dL suggests IMPAIRED HOMEOSTASIS per A.D.A. criteria. Please note revised GLUCOSE reference range effective 2017. LAB L501.1000 7-18 mg/dL Normal BUN 14 LAB L501.1100 0.55-1.02 mg/dL Normal CREAT,SERUM 0.99 Result Comment: The validity of the calculated GFR AND GFRAA in patients over 70 years has not been determined. Clinical correlation is essential. LAB L501.1110 >60 mL/min Low EST GFR 58 Result Comment: Non- GFR Calc LAB L501.1115 >60 mL/min Normal EST GFR - AA 70 Result Comment: GFR Calc LAB L501.1300 10-20 RATIO Normal BUN/CRE 14.1 LAB L501.2200 8.5-10.1 mg/dL CA Normal 9.2 LAB L501.5300 136-145 mmol/L NA Normal 141 LAB L501.5600 3.5-5.1 mmol/L K Normal 4.2 LAB L501.5900 98-107 mmol/L CL Normal 107 LAB L501.6100 21.0-32.0 mmol/L Normal CO2 29.0 LAB L501.6200 5-15 Normal GAP 5 Performed By: #### L500.2500 #### [facility] [address] [place], [place], [address] LIVER PROFILE Collected: 08/12/2017 Status: F Source: [place] 9:55 AM [facility] REPOSITORY Order Comment: Order Date: 01/03/17 Order Info: 0788-1 - *Hepatic Function Panel Order Info: [id number] - *Lipid Profile CC PCP Comments: 12 hours fasting, may have water. TYPE CODE TESTS RESULT OUT OF RANGE REFERENCE UNITS LAB L501.1500 6.4-8.2 g/dL Normal T PROT 7.3 LAB L501.1800 3.2-5.0 g/dL Normal ALB 3.7 LAB L501.1950 2.2-4.2 g/dL Normal GLOB 3.6 LAB L501.4100 15-37 U/L Normal AST 21 LAB L501.4305 45-117 U/L High ALK P 119 LAB L501.4405 13-56 U/L Normal ALT 32 LAB L501.4600 0.20-1.00 mg/dL Normal T BILI 0.60 LAB L501.4700 0.00-0.30 mg/dL Normal D BILI 0.10 Performed By: #### L500.3400 #### [facility] [address] [facility]. [place], [place], [address] LIPID PROFILE Collected: 08/12/2017 Status: F Source: [place] 9:55 AM [facility] REPOSITORY Order Comment: Order Date: 01/03/17 Order Info: [id number] - *Hepatic Function Panel Order Info: [id number] - *Lipid Profile CC PCP Comments: 12 hours fasting, may have water. TYPE CODE TESTS RESULT OUT OF RANGE REFERENCE UNITS LAB L501.4900 200 mg/dL Normal CHOL 180 Result Comment: <200 mg/dL Desirable 200-240 mg/dL Borderline >240 mg/dL High Risk LAB L501.5000 mg/dL Normal TRIG 153 Result Comment: The drugs N-Acetylcysteine and Metamizole may falsely depress this assay. Serum Triglycerides Reference Interval Normal <150 mg/dL Borderline high 150 - 199 mg/dL High 200 - 499 mg/dL Very High > or = 500 mg/dL LAB L501.6400 mg/dL Normal HDL 44 Result Comment: The drugs N-Acetylcysteine and Metamizole may falsely depress this assay. Reference Range HDL <40 mg/dL Low HDL Cholesterol HDL >or= 60 mg/dL High HDL Cholesterol LAB L501.6500 0-130 mg/dL Normal LDL 105 LAB L501.6600 5-40 mg/dL Normal VLDL 31 Performed By: #### L500.4100 #### [facility] [address] [place], [address] URINE DRUG SCREEN Collected: 05/21/2017 Status: F Source: [place]) 10:10 AM [facility] REPOSITORY Order Comment: Comments: DRUG SCREEN [id number] List of Drugs Taken or Suspected? UNK TYPE CODE TESTS RESULT OUT OF RANGE REFERENCE UNITS LAB L505.0075 TO BE Normal CONFIRMED Result Comment: CONFIRMATORY TESTING FOR ALL POSITIVE URINE DRUG SCREEN RESULTS WILL ONLY BE SENT OUT UPON PHYSICIAN ORDER. [facility] Urine Drug Screen methods provide only preliminary analytical test results. A more specific alternate chemical method must be used in order to obtain a confirmed analytical result. Gas chromatography/mass spectrometery (GC/MS) is the preferred confirmatory method. Clinical consideration and professional judgement should be applied to any drug of abuse test result, particularly when preliminary positive results are used. URINE TCA TESTING MUST BE ORDERED SEPARATELY. USE TEST MNEMONIC: [facility] LAB L505.5005 VISTA UDS PH 5 Normal LAB L505.5015 <1000 ng/mL AMPHETAMINES Normal NEGATIVE LAB L505.5025 < 200 ng/mL BARBITIURATES Normal NEGATIVE LAB L505.5035 < 200 ng/mL BENZODIAZIPINE Normal NEGATIVE LAB L505.5045 < 300 ng/mL COCAINE Normal NEGATIVE LAB L505.5055 < 500 ng/mL ECSTACY Normal NEGATIVE LAB L505.5065 < 300 ng/mL METHADONE Normal NEGATIVE LAB L505.5075 < 300 High ng/mL OPIATES POSITIVE LAB L505.5085 < 25 ng/mL PCP Normal NEGATIVE LAB L505.5095 < 50 ng/mL THC Normal NEGATIVE Performed By: #### L505.5000 #### [facility] [address] [place], [address] MISCELLANEOUS LAB Collected: 05/21/2017 Status: F Source: [place] PROCEDURE 10:10 AM [facility] REPOSITORY Order Comment: Comments: DRUG SCREEN [id number] Test(s) Ordered: DRUG SCREEN [id number] TYPE CODE TESTS RESULT OUT OF RANGE REFERENCE UNITS LAB L801.1541 Normal [facility] [place] Result Comment: [id number] 6+OXYCODONE-BUND (ng/mL) DRUG RESULT SCREEN CUTOFF ____ Amphetamines,Urine Negative ng/mL 1000 Amphetamine test includes Amphetamine and Methamphetamine. Barbiturates Negative ng/mL 200 Benzodiazepines Negative ng/mL 200 Cannabinoid Negative ng/mL 20 Cocaine (Metab) Negative ng/mL 300 Opiates Negative ng/mL 300 Opiates test includes Codeine, Morphine, Hydromorphone, Hydrocodone. Oxycodone/Oxymorphone,Urine POSITIVE ng/mL 300 Test includes Oxydodone and Oxymorphone. Oxycodone Positive Oxycodone GC/MS 3660 ng/mL 300 Oxymorphone Positive Oxymorphone GC/MS 1960 ng/mL 300 TESTING PERFORMED AT [facility]. ORIGINAL REPORT ON FILE IN LAB CONTAINS ADDITIONAL TEST SITE INFORMATION. Performed By: #### L801.1541 #### [facility] [address] [place], [address] OPERATIVE REPORT Observed: 05/06/2017 Status: F Source: [place] 7:38 AM [facility] REPOSITORY [facility] Medical Records Department [address] [place] [address] Operative Report 05/06/17 0731 MR#: [id number] Acct: [id number] Name: HAWA BOSS Rep #: [id number] : 1945 71 From: Edenilson Cardoza MD PCP: Miles Reid MD Status[place] [facility] [place] Location: [place] [address] Problem List (1) Screening for intestinal cancer Status: Acute Report of Operation Date of Procedure: 05/06/17 Pre-Operative Diagnosis: Screening for intestinal malignancy Post-Operative Diagnosis: Diminutive fullness of the distal ascending colon mucosa. Scattered pancolonic diverticulosis. Extensive descending and sigmoid diverticulosis. Grade 2-3 internal hemorrhoids Surgery/Procedure Performed:: Colonoscopy with ascending colon biopsy Description of Surgical Findings:: Informed consent was obtained. 71-year-old female was taken to the endoscopy suite. She was placed in a left lateral decubitus position. Throughout the procedure total 100 mg of Demerol and 5 mg of Versed were given as intravenous sedation. Digital rectal exam demonstrated some moderate hemorrhoidal changes. Slightly tight anal tone. No mass lesions. Flexible colonoscope inserted the rectum advanced through a tortuous sigmoid colon extensively involved with diverticulosis. The scope was advanced through the transverse colon and with transabdominal pressure and placing the patient supine the scope was advanced to the cecum. Visualization of the cecum was challenging due to the patient's body habitus. I felt that I got adequate visualization. The scope was carefully withdrawn and in the distal ascending colon there was a small area of mucosal fullness. Did not actually look to be a polyp but I used a cold forcep to biopsy this area. Hemostasis was intact. The scope was then further withdrawn through the transverse colon descending colon and sigmoid colon. There is been pancolonic diverticulosis identified scattered in the ascending colon transverse colon but it became very extensive in the descending and sigmoid colon. The scope was carefully withdrawn without additional abnormality was retroflexed within the rectum and the hemorrhoidal changes noted. Excess fluid and air was aspirated free the procedure was completed with the patient tolerating it well. Impression Minimal mucosal fullness of the ascending colon with pathology pending. Likely benign. Likely not a polyp. Pancolonic diverticulosis with extensive diverticulosis of the descending and sigmoid colon Pending pathology will recommend follow-up examination colonoscopy in 10 years. Her previous colonoscopy was 10 years prior. Cc: Dr. Reid Procedure was initiated at 0709. The scope inserted 0712. The cecum reached at 0722. The procedure completed at 0728. Edenilson Cardoza M.D., F.A.C.S. Type of Anesthesia:: IV Sedation 05/06/17 0738 <Electronically signed by Edenilson Cardoza MD> Date Edenilson Cardoza MD CC: Miles Reid MD; Edenilson Cardoza MD Signed HISTORY AND PHYSICAL Observed: 05/06/2017 Status: F Source: [place] EXAM 7:07 AM [facility] REPOSITORY [facility] Medical Records Department [address] [place] [address] History and Physical 05/06/17 0705 MR#: [id number] Acct: [id number] Name: HAWA BOSS Rep #: [id number] : 1945 71 From: Edenilson Cardoza MD PCP: Miles Reid MD Status: [facility] [place] Location: [place] [address] Problem List (1) Screening for intestinal cancer Status: Acute History of Present Illness Date of Admission: 05/06/17 The patient is a 71 year old F who presents for screening colonoscopy. Her previous colonoscopy was 10 years ago. She denies bright red blood per rectum or melena. She is noted to be obese and claims that she has not had any weight loss. She otherwise enjoys stable health. She denies any personal history of colon polyps or colon cancer. Past Medical History Past Medical History (Chronic Problems): Chronic Problems Fibromyalgia (Chronic) Rheumatoid arthritis (Chronic) Recurrent pancreatitis (Chronic) History of atrial fibrillation (Chronic) status post ablation Hyperlipidemia (Chronic) Gastroesophageal reflux disease (Chronic) Familial combined hyperlipidemia (Chronic) Spinal stenosis of lumbar region (Chronic) Morbid obesity with BMI of 40.0-44.9, adult (Chronic) Benign hypertension (Chronic) Allergies Penicillins Allergy (Verified 05/06/17 06:43) Hives Home Medications: Ambulatory Orders Medication Instructions Recorded Surgical History: cholecystectomy, total knee arthroplasty - left Smoking Status: Never smoker - *Family History Maternal History Items: Renal Disease - age 70 Paternal History Items: - - age 45 cirrhosis Review of Systems Constitutional: Denies: Anorexia Eyes: Denies: Blurred vision HEENT: Denies: Difficulty Swallowing Cardiovascular: Denies: Chest Pain Respiratory: Denies: Cough Gastrointestinal: Denies: Abdominal Pain Genitourinary: Denies: Dysuria Musculoskeletal: Denies: Leg Pain Neurological: Denies: Balance problems Endocrine: Denies: Change in Body Habitus VTE Information - Inpt Only VTE Present on Admission: No Patient Problems: Active and Suspected Problems Screening for intestinal cancer (Acute) - Physical Exam General: Alert, Oriented x3, Cooperative, No apparent distress HEENT: Atraumatic Oral: Moist Mucosa Neck: Supple Lungs: Clear to auscultation Cardiovascular: Regular rate Abdomen: Bowel Sounds Present, Soft, Non Tender Extremities: No Calf Tenderness Skin: No rashes Musculoskeletal: No Tenderness to Palpation of Joints or Extremities Lymphatic: No Cervical, Supraclavicular, or Inguinal Adenopathy Neurological: Cranial nerves II-XII grossly intact Psych/Mental Status: Normal Affect Vital Signs Pulse Resp BP Pulse Ox 59 L 18 121/73 H 99 05/06/17 06:47 05/06/17 06:47 05/06/17 06:47 05/06/17 06:47 Oxygen Delivery Method Room Air Weight: 235 lb 10.786 oz Body Mass Index (BMI) 43.1 Assessment/Plan Active and Suspected Problems Screening for intestinal cancer (Acute) Patient presents for screening colonoscopy. We have discussed the technique, benefits, risks, alternatives. She has had an opportunity to ask and have questions answered. We will proceed at her discretion. Edenilson Cardoza M.D., F.A.C.S. 05/06/17 0707 <Electronically signed by Edenilson Cardoza MD> Date Edenilson Cardoza MD Cosigner Signature: Date (if applicable) CC: Miles Reid MD; Edenilson Cardoza MD Signed COLON BIOPSY (CHOOSE Observed: 05/06/2017 Status: F Source: [facility] 12:00 AM [facility] REPOSITORY Patient: HAWA BOSS : 1945 (71/F) Acct Num: [id number] Phys: Nani LOCKHART,Edenilson Unit Num: [id number] Loc: EN Specimen: [id number] Received: 05/06/171538 Spec Type: COLON BX TISSUES TISSUES: Ascending colon GROSS DESCRIPTION Received in fixative is one container labeled with the patient's name and designated ascending colon biopsy. The specimen consists of one irregular fragment of light montemayor soft tissue that measures 0.2 x 0.2 x 0.1 cm. The specimen is totally submitted in one cassette. / AM: 05/06/17 TC:4 CPT: 23904 HEADER OPERATION: Colonoscopy PRE-OP DIAGNOSIS: Screening TISSUE SUBMITTED: Ascending colon biopsy, mucosal fullness MICROSCOPIC DESCRIPTION Slides are reviewed. MICROSCOPIC DIAGNOSIS Ascending colon, biopsy: Fragment of colonic mucosa, no pathologic diagnosis. SJ:conchis 05/07/17 Signed Tristin Jack 05/07/17 <signature on file> Performed By: #### PCOLBX #### [facility] [address] [place], [place] [address]zach. [place], [place], [address] ALLERGIES ALLERGIES DATE TYPE / CODE NAME / CODE REACTION SEVERITY SOURCE 03/06/2018 Drug Penicillins/ Hives Unknown [facility] Allergy/4160 [id number]( Hospital [facility](SNOMED XNORM) Repository CT) 03/06/2018 Drug atorvastatin elevated lft SV [facility] Allergy/4160 /[id number]( [place] [address](SNOMED RXNORM) Repository CT) 08/14/2016 Drug adhesive/F00 Rash Unknown [facility] Allergy/4160 [id number]([place] [address](SNOMED RM) Repository CT) ENCOUNTERS ENCOUNTERS ADMIT/DISCHARGE ACCOUNT ADMITTING ENCOUNTER LOCATION SOURCE NUMBER CLASS 03/11/2018 [id number] Ambulatory [place] [facility] Hospital ing:LAB Repository 03/06/2018/ [id number] Ambulatory BMSBuilding:B [place] 9 4 [facility] Repository 02/14/2018/ [id number] Ambulatory BMSBuilding:B [place] 8 7 [facility] Repository 01/19/2018 [id number] Ambulatory [place] 3 [facility] Hospital ing:MTLAB Repository 01/05/2018/ [id number] Ambulatory BMSBuilding:B [place] 8 7 [facility] Repository 01/05/2018 [id number] Ambulatory BMSBuilding:B [place] 1 [facility] Repository 12/10/2017 [id number] Ambulatory [place] 6 [facility] Hospital ing:MTRAD Repository 09/26/2017 [id number] Ambulatory [place] 1 [facility] ing[facility]SDC Repository 09/25/2017 [id number] Ambulatory [place] 5 [facility] Hospital ing:MFPLAB Repository 09/12/2017 [id number] Ambulatory [place] 3 [facility] ing:MTRAD Repository 08/22/2017 [id number] Ambulatory [place] 4 [facility] Hospital ing:OPBI Repository 08/12/2017 [id number] [place] 5 [facility] ing:MTLAB Repository 05/21/2017 [id number] Ambulatory [place] 7 [facility] Hospital ing:MTLAB Repository 05/06/2017/ [id number] Ambulatory [place] 8 3 [facility] Hospital ing:ENRoom: Repository AC12 05/06/2017 [id number] Ambulatory BMSBuilding:B [place] 8 MS.[facility] Repository 04/09/2017/ [id number] Ambulatory BMSBuilding:B [place] 8 0 [facility] Repository PAYERS PAYERS ENCOUNTER GUARANTOR PAYER SUBSCRIBER SOURCE 03/11/2018 HAWA L Primary HAWA L FRYDOB: [place] [id number] [place] Insurance:MEDICARE [id number] Community DRAPT PART A BPolicy Number: [address] [id number] Repository [address]Toe: (330) Date:2018-03-11 [phone] () 03/11/2018 Secondary [place]WA [place] FRYDOB: [place] Insurance:HUMANA [id number] Number: Repository [id number] Date:9206-86-96TY [address] [address]JJ: 03/11/2018 Tertiary NOT GIVENUNK [place] Insurance:SELF PAY [facility] Number: Effective Repository Date:2018-03-11 03/06/2018 HAWA L Primary HAWA L FRYDOB: [place] [id number] [place] Insurance:MEDICARE [id number] Community DRAPT PART A BPolicy Number: [address] [id number] Repository [address]Ble: (330) Date:2018-03-06 [phone] () 03/06/2018 Secondary [place] FRYDOB: [place] Insurance:HUMANA [id number] Hospital Number: Repository [id number] Date:4761-93-95LI [address] [address]QQ: 03/06/2018 Tertiary NOT GIVENUNK [place] Insurance:SELF PAY [facility] Number: Effective Repository Date:2018-03-06 02/14/2018 HAWA L Primary HAWA L FRYDOB: [place] [id number] [place] Insurance:MEDICARE [id number] Community DRAPT PART A BPolicy Number: [address] [id number] Repository [address]Nui: (330) Date:2018-02-14 [phone] () 02/14/2018 Secondary [place] FRYDOB: [place] Insurance:HUMANA [id number] [facility] Hospital Number: Repository [id number] Date:3041-61-67SP [address] [place] [address]BJ: 02/14/2018 Tertiary NOT GIVENUNK [place] Insurance:SELF PAY [facility] Number: Effective Repository Date:2018-02-14 01/19/2018 HAWA L Primary HAWA L FRYDOB: [place] [id number] [place] Insurance:MEDICARE [id number] Community DRAPT PART A BPolicy Number: [address] [id number] Repository [address]Cun: (330) Date:2018-01-19 [phone] () 01/19/2018 Secondary [place] FRYDOB: [place] Insurance:HUMANA [id number] [facility] Number: Repository [id number] Date:8986-46-24OM [address] [address]LE: 01/19/2018 Tertiary NOT GIVENUNK [place] Insurance:SELF PAY [facility] Number: Effective Repository Date:2018-01-19 01/05/2018 HWAA L Primary HAWA L FRYDOB: [place] [id number] [place] Insurance:MEDICARE [id number] Community DRAPT PART A BPolicy Number: [address] [id number] Repository [address]Eks: 330) Date:2017-02-07 [phone] () 01/05/2018 Secondary [place] FRYDOB: [place] Insurance:HUMANA [id number] [facility] Hospital Number: Repository [id number] Date:5909-10-01PI [address] [place] [address]HG: 01/05/2018 Tertiary NOT GIVENUNK [place] Insurance:SELF PAY [facility] Number: Effective Repository Date:2017-02-07 01/05/2018 HAWA L Primary [place] L FRYDOB: [place] [id number] [place] Insurance:HUMANA [id number] Community DRAPT [address] Number: Repository [id number]: 330 [id number] [phone] () Date:5623-33-67ND[address] [address]QY: 01/05/2018 Secondary [place] FRYDOB: [place] Insurance:MEDICARE [id number] Community PART A BPolicy Number: Hospital [id number] Repository Date:2018-01-05 01/05/2018 Tertiary NOT GIVENUNK [place] Insurance:SELF PAY Community [facility] Number: Effective Repository Date:2018-01-05 12/10/2017 HAWA L Primary HAWA L FRYDOB: [place] [id number] [place] Insurance:HUMANA [id number] Community DRAPT [address] Number: Repository [id number]: 330 [id number] [phone] () Date:1462-46-90KO[address] [address]KP: 12/10/2017 Secondary [place] FRYDOB: [place] Insurance:MEDICARE [id number] Community PART A BPolicy Number: Hospital [id number] Repository Date:2017-12-10 12/10/2017 Tertiary NOT GIVENUNK [place] Insurance:SELF PAY Community [facility] Hospital Number: Effective Repository Date:2017-12-10 09/26/2017 Haw[place] L Primary [place] FryDOB: [place] [id number] [place] Insurance:MEDICARE [id number] Community DRAPT PART A BPolicy Number: [address] [id number] Repository [address]Yhr: 330) Date:2017-09-17 [phone] () 09/26/2017 Secondary [place] FryDOB: [place] Insurance:HUMANA [id number] Community [facility] Number: Repository [id number] Date:7925-31-40XA[address] [address]EG: 09/26/2017 Tertiary NOT GIVENUNK [place] Insurance:SELF PAY Community [facility] Hospital Number: Effective Repository Date:2017-09-17 09/25/2017 Haw[place] Primary [place] FryDOB: [place] [id number] [place] Insurance:HUMANA [id number] [facility] [address] Number: Repository [id number]: 330 [id number] [phone] () Date:8822-83-97RL[address] [address]KE: 09/25/2017 Secondary [place] FryDOB: [place] Insurance:MEDICARE [id number] Community PART A BPolicy Number: Hospital [id number] Repository Date:2017-09-25 09/25/2017 Tertiary NOT GIVENUNK [place] Insurance:SELF PAY [facility] Number: Effective Repository Date:2017-09-25 09/12/2017 Hawa L Primary [place] FryDOB: [place] [id number] [place] Insurance:MEDICARE [id number] Community DRAPT PART A BPolicy Number: [address] [id number] Repository [address]Xnk: 330) Date:2017-09-12 [phone] () 09/12/2017 Secondary [place] FryDOB: [place] Insurance:HUMANA [id number] [facility] Hospital Number: Repository [id number] Date:1509-51-42CF[address] [address]MK: 09/12/2017 Tertiary NOT GIVENUNK [place] Insurance:SELF PAY [facility] Hospital Number: Effective Repository Date:2017-09-12 08/22/2017 Haw[place] L Primary [place] FryDOB: [place] [id number] [place] Insurance:MEDICARE [id number] Community DRAPT PART A BPolicy Number: [address] [id number] Repository [address]Tek: 330) Date:2017-08-07 [phone] () 08/22/2017 Secondary [place] FryDOB: [place] Insurance:HUMANA [id number] [facility] Hospital Number: Repository [id number] Date:8370-54-48FK [address] [address]FT: 08/22/2017 Tertiary NOT GIVENUNK [place] Insurance:SELF PAY [facility] Hospital Number: Effective Repository Date:2017-08-07 08/12/2017 Haw[place] L Primary [place] FryDOB: [place] [id number] [place] Insurance:MEDICARE [id number] Community DRAPT PART A BPolicy Number: [address] [id number] Repository [address]Mxe: (515) Date:2017-08-12 [phone] () 08/12/2017 Secondary [place] FryDOB: [place] Insurance:HUMANA [id number] [facility] Hospital Number: Repository [id number] Date:0399-71-30GV [address] [address]HC: 08/12/2017 Tertiary NOT GIVENUNK [place] Insurance:SELF PAY [facility] Hospital Number: Effective Repository Date:2017-08-12 05/21/2017 Hawa L Primary [place] L FryDOB: [place] [id number] [place] Insurance:MEDICARE [id number] Community DRAPT PART A BPolicy Number: [address] [id number] Repository [address]Rum: (330) Date:2017-05-21 [phone] () 05/21/2017 Secondary [place] FryDOB: [place] Insurance:HUMANA [id number] Hospital Number: Repository [id number] Date:6033-75-57EC [address] [address]SY: 05/21/2017 Tertiary NOT GIVENUNK [place] Insurance:SELF PAY [facility] Hospital Number: Effective Repository Date:2017-05-21 05/06/2017 Hawa L Primary [place] FryDOB: [place] [id number] [place] Insurance:MEDICARE [id number] Community DRAPT PART A BPolicy Number: [address] [id number] Repository [address]Lxx: (330) Date:2017-04-09 [phone] () 05/06/2017 Secondary [place] FryDOB: [place] Insurance:HUMANA [id number] [facility] Hospital Number: Repository [id number] Date:6353-16-73AX [address] [place] [address]NW: 05/06/2017 Tertiary NOT GIVENUNK [place] Insurance:SELF PAY [facility] Hospital Number: Effective Repository Date:2017-04-09 05/06/2017 Hawa L Primary [place] L FryDOB: [place] [id number] [place] Insurance:MEDICARE [id number] Community DRAPT PART A BPolicy Number: [address] [id number] Repository [address]Gsa: (330) Date:2017-04-09 [phone] () 05/06/2017 Secondary [place] FryDOB: [place] Insurance:HUMANA [id number] [facility] Hospital Number: Repository [id number] Date:4835-88-97BC[address] [address]LV: 05/06/2017 Tertiary NOT GIVENUNK [place] Insurance:SELF PAY [facility] Number: Effective Repository Date:2017-05-06 04/09/2017 Hawa L Primary [place] L FryDOB: [place] [id number] [place] Insurance:MEDICARE [id number] [address] Dr [address] PART A BPolicy Number: [address] [id number] Repository [address]Nxy: (330) Date:2017-04-09 [phone] () 04/09/2017 Secondary [place] FryDOB: [place] Insurance:HUMANA [id number] [facility] Hospital Number: Repository [id number] Date:3765-84-10KC [address] [place] [address]VY: 04/09/2017 Tertiary NOT GIVENUNK [place] Insurance:SELF PAY Community [facility] Number: Effective Repository Date:2017-04-09
== END ==
PROVIDERS: Family Provider Family Medicine; PCP Family Medicine; Referring Provider Anesthesiology Pain Medicine; Visit Provider Anesthesiology Pain Medicine
DX: F11.20 Opioid dependence, uncomplicated (principal)
CPT/HCPCS: 80307

== ENCOUNTER 2018-03-28 10:50 | Emergency (ER) | payer MEDICARE, OTHER, SELFPAY ==
[2018-03-06 12:14] VITALS: BMI 41.1
[2018-03-28 10:52] VITALS: BP 112/85; PULSE 85; RESP 16; TEMP 36.7; O2SAT 95; BMI 42.6
--- NOTE | 2018-03-28 11:06 | RAD_ITS ---
STUDY: X-RAY - RIGHT FOOT CLINICAL: Female, 72 years old. Right foot pain TECHNIQUE: 3 view(s) of the foot. COMPARISON: None. FINDINGS: Normal talus, calcaneus, and tarsal bones. Normal visualized subtalar, talonavicular, calcaneocuboid, tarsal and tarsometatarsal articulations. Normal metatarsi. There is degenerative arthrosis of the metatarsophalangeal joint of the hallux with a hallux valgus deformity. Normal tibial and fibular sesamoid bones. Normal interphalangeal joint of the great toe. Normal phalanges of the great toe. Severe degenerative narrowing of the second MTP joint with marginal osteophyte formation and remodeling of the second metatarsal head. Normal interphalangeal joints and phalanges of the lesser toes. The soft tissue structures are unremarkable. RAD/Foot min 3 Views IMPRESSION: 1. No fracture or malalignment. 2. Degenerative changes of the first and second MTP joints. Electronically Signed: Justin Birmingham MD at 11:30 EST , Service support ,
--- NOTE | 2018-03-28 11:09 | ED.DCSUM_ITS ---
- ER Visit Summary Date of Service: 03/28/18 Chief Complaint: Right foot pain History of Present Illness: The patient is a 72 F presenting with right foot pain. Patient states that yesterday she was vacuuming. The vacuum got stuck and she pulled the vacuum and it hit her right foot and it rolled over her foot. She began having painful ambulation a few hours later. She states it has progressively worsened. She takes Percocet at home for rheumatoid arthritis. She did not try any other medications. She denies other injuries. Physical Examination: Vitals are stable. Patient is afebrile. Alert no acute distress. HEENT exam is unremarkable. Neck is supple. Lungs are clear and equal bilaterally. Heart is regular rate and rhythm. Extremities right lateral foot tenderness with mild erythema and swelling. Normal distal pulses. Skin is warm and dry. No focal neurologic deficit. Remainder of exam is unremarkable. Emergency Department Course and Treatment: Ice pack was applied. Right foot and ankle x-ray showed no acute process. Patient was given a postop shoe. She is advised to ice and elevate. Advised to follow-up with her primary care physician. Advised to return to ED if worsening complaints. Disposition: Discharge home Impression: Right foot contusion This note was generated with [employer] dictation software. It may contain incorrect words, spelling, and punctuation that were not noted in review of the chart prior to signing ED Disposition - Plan for ED Patient: Instructions: ED Contusion Foot Referrals: Miles Reid MD [Primary Care Provider] -
--- NOTE | 2018-03-28 11:11 | RAD_ITS ---
STUDY: X-RAY - RIGHT ANKLE REASON FOR EXAM: Female, 72 years old. Right ankle pain TECHNIQUE: 3 view(s) of the ankle. COMPARISON: None. FINDINGS: Normal visualized distal tibia and fibula. Normal medial and lateral malleoli. Normal tibiotalar articulation and ankle mortise. Normal visualized talus and calcaneus. Mild scattered periarticular osteopenia including localized areas in the distal tibia, talar dome and distal fibula. The visualized subtalar, talonavicular, calcaneocuboid and tarsal articulations are normal. There are atherosclerotic calcifications. RAD/Ankle min 3 Views IMPRESSION: 1. No fracture or malalignment. 2. Heterogeneous osteopenia. Electronically Signed: Justin Birmingham MD at 11:29 EST , Service support ,
--- NOTE | 2018-03-28 11:38 | ED.DEP ---
ED Disposition - Plan for ED Patient: Instructions: ED Contusion Foot Referrals: Miles Reid MD [Primary Care Provider] -
[2018-03-28 12:04] VITALS: BP 127/64; PULSE 71; RESP 15; O2SAT 98
== END 2018-03-28 12:12 | disposition home or self-care (01) ==
LOC: ED 12:05
PROVIDERS: Emergency Provider Emergency Medicine; Family Provider Family Medicine; PCP Family Medicine
DX: S90.31XA Contusion of right foot, initial encounter (principal); M06.9 Rheumatoid arthritis, unspecified; W20.8XXA Other cause of strike by thrown, projected or falling object, initial encounter; Y93.E3 Activity, vacuuming; Y92.009 Unspecified place in unspecified non-institutional (private) residence as the place of occurrence of the external cause; Y99.8 Other external cause status
CPT/HCPCS: 73610; 73630; 99284

== ENCOUNTER → 2018-04-07 12:44 | Outpatient (CLI) | payer MEDICARE, OTHER, SELFPAY ==
[2018-03-28 10:52] VITALS: BMI 42.6
[2018-04-07 13:52] LABS: Absolute Lymphocyte Count 1.84 X10^3/ul (0.83-4.51); Absolute Neutrophil Count 5.3 X10^3/uL (2.0-7.7); Basophil# 0.02 X10^3/uL; Basophil% 0.2 % (0-1); Eosinophil# 0.21 X10^3/uL; Eosinophils% 2.6 % (0-5); Hematocrit 43.1 % (37-47); Hemoglobin 13.5 g/dl (12.0-15.0); Lymphocyte # 1.84 X10^3/ul (4.0); Lymphocyte % 22.7 % (19-41); Mean Corp Hgb Conc 31.3 g/gl (32-36); Mean Corpuscular Hgb 27.9 pg (27.0-32.0); Mean Platelet Vol. 10.5 fl (6.2-12.0); Monocyte# 0.76 X10^3/uL; Monocyte% 9.4 % (0-10); Neutrophil # 5.25 X10^3/uL (2.7-7.7); Platelet Count 240 K/mm3 (150-450); RBC Distribution Width CV 14.8 % (11.6-14.6); RBC Distribution Width SD 47.9 fl (35.1-43.9); Red Blood Count 4.84 M/mm3 (4.2-5.4); White Blood Count 8.1 K/mm3 (4.4-11.0)
[2018-04-07 13:59] LABS: POSITIVE COUNT NO; POSITIVE DIFFERENTIAL NO; POSITIVE MORPHOLOGY NO
[2018-04-07 14:16] LABS: ALB/GLOB Ratio 0.7 RATIO (0.9-2.4); AST(SGOT) 21 U/L (15-37); Alanine Aminotransfer ALT/SGPT 21 U/L (13-56); Albumin, Serum 3.3 g/dL (3.2-5.0); Alkaline Phosphatase 172 U/L (45-117); Anion Gap 6 (5-15); BUN 11 mg/dL (7-18); BUN/Creat Ratio 11.1 RATIO (10-20); Calcium,Total 9.4 mg/dL (8.5-10.1); Chloride 107 mmol/L (98-107); Creatinine, Serum 0.99 mg/dL (0.55-1.02); EST Glomerular Filtration Rate 58 mL/min (>60); Est Glom Filt Rate - Afr Amer 70 mL/min (>60); Globulin 4.8 g/dL (2.2-4.2); Glucose 97 mg/dL (74-106); Potassium 3.9 mmol/L (3.5-5.1); Protein, Total 8.1 g/dL (6.4-8.2); Sodium Level 139 mmol/L (136-145); Uric Acid 8.7 mg/dL (2.6-6.0)
[2018-04-07 19:56] LABS: Body Fluid QC Type(s) BF1Q; Source- Body Fluid SYNOVIAL
[2018-04-09 13:29] LABS: Pathologist Review Reviewed
[2018-04-10 12:32] LABS: CRYSTALS, BODY FLUID See PATH REV
== END ==
PROVIDERS: Family Provider Family Medicine; PCP Family Medicine; Referring Provider Podiatrist; Visit Provider Podiatrist
DX: M10.9 Gout, unspecified (principal)
CPT/HCPCS: 36415; 80053; 84550; 85025; 87070; 87075; 87205; 89060

== ENCOUNTER → 2018-04-20 12:32 | Outpatient (CLI) | payer MEDICARE, OTHER, SELFPAY ==
[2018-03-28 10:52] VITALS: BMI 42.6
[2018-04-20 13:10] LABS: Pathologist Comment May follow
[2018-04-20 13:55] LABS: RBC /Synovial Fluid 0.008 10^6/uL (0); Synovial Fld Mononuclear WBC % 31.1 %; Synovial Fld Polynuclear WBC # 5.607 10^3/ul; Synovial Fld Polynuclear WBC % 68.9 %
[2018-04-20 14:42] LABS: AUTO B FLUID DILUENT BKGD CT WBC <0.1 RBC <0.01 (W<.1,R<.01); Source- Body Fluid SYNOVIAL
[2018-04-20 14:43] LABS: Appearance /Synovial Fluid Sl Cl (CLEAR); Color / Synovial Fluid Yellow (Pale Yellow); Source / Synovial Fluid RIGHT KNEE
[2018-04-20 14:55] LABS: Lymph 25 %; Monocyte /Synovial Fluid 7 %; Neutrophil 68 % (0-25)
[2018-04-20 14:56] LABS: Body Fluid QC Type(s) BF1Q,BF2Q
[2018-04-22 10:12] LABS: Pathologist Review Reviewed
== END ==
PROVIDERS: Family Provider Family Medicine; PCP Family Medicine; Referring Provider Internal Medicine Rheumatology; Visit Provider Internal Medicine Rheumatology
DX: M06.9 Rheumatoid arthritis, unspecified (principal); M79.7 Fibromyalgia; M17.0 Bilateral primary osteoarthritis of knee; M25.561 Pain in right knee; K76.0 Fatty (change of) liver, not elsewhere classified; Z79.899 Other long term (current) drug therapy
CPT/HCPCS: 87070; 87075; 87205; 89050; 89051; 89060

== ENCOUNTER 2018-04-23 16:50 | Emergency (ER) | payer OTHER, MEDICARE, SELFPAY ==
[2018-04-23 16:52] VITALS: BP 155/65; PULSE 79; RESP 16; TEMP 36.8; O2SAT 97; BMI 43.5
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
--- NOTE | 2018-04-23 17:30 | ED.DEP ---
ED Disposition - Plan for ED Patient: Disposition: Home or Assisted Living Instructions: ED Contusion Chest Wall Referrals: Miles Reid MD [Primary Care Provider] - 1 Week if not improving Additional Instructions: Ice to chest wall. Use a pillow to brace your ribs if painful. Tylenol for pain. Follow-up with not improving return to the ER feeling worse. The bruising may worsen before it starts going away which may take several weeks.
== END 2018-04-23 17:46 | disposition home or self-care (01) ==
PROVIDERS: Emergency Provider Emergency Medicine; Family Provider Family Medicine; PCP Family Medicine
DX: S20.211A Contusion of right front wall of thorax, initial encounter (principal); S40.021A Contusion of right upper arm, initial encounter; I25.10 Atherosclerotic heart disease of native coronary artery without angina pectoris; I25.2 Old myocardial infarction; Z79.82 Long term (current) use of aspirin; V43.52XA Car driver injured in collision with other type car in traffic accident, initial encounter; Y93.I9 Activity, other involving external motion; Y92.410 Unspecified street and highway as the place of occurrence of the external cause; Y99.8 Other external cause status
CPT/HCPCS: 71046; 99284

== ENCOUNTER → 2018-07-23 | Outpatient (CLI) | payer MEDICARE, OTHER, SELFPAY ==
[2018-07-23 13:00] LABS: Anion Gap 7 (5-15); BUN 14 mg/dL (7-18); BUN/Creat Ratio 14.7 RATIO (10-20); Calcium,Total 9.2 mg/dL (8.5-10.1); Chloride 107 mmol/L (98-107); Creatinine, Serum 0.95 mg/dL (0.55-1.02); EST Glomerular Filtration Rate 61 mL/min (>60); Est Glom Filt Rate - Afr Amer 74 mL/min (>60); Glucose 98 mg/dL (74-106); Potassium 4.6 mmol/L (3.5-5.1); Sodium Level 142 mmol/L (136-145); Uric Acid 9.1 mg/dL (2.6-6.0)
== END | disposition home or self-care (01) ==
LOC: MFPLAB 11:29
PROVIDERS: Family Provider Family Medicine; PCP Family Medicine; Referring Provider Family Medicine; Visit Provider Family Medicine
DX: M10.9 Gout, unspecified (principal)
CPT/HCPCS: 36415; 80048; 84550

== ENCOUNTER → 2018-07-28 | Outpatient (CLI) | payer MEDICARE, OTHER, SELFPAY ==
--- NOTE | 2018-07-28 | LES_PTH ---
PATIENT: ANNETTE BOSS LOC: [place] U#:[id number] AGE/SX: 72/F ROOM: RE07/28/[address]: Dr. Papa Cadena MD : 1945 BED: DIS: 07/28/2018 SPEC #: [id number] RECD: 07/28/18 17:19 STATUS: LAUREN ARMANDO #: [id number] JUN: 07/28/18 00:[address]: Papa Cadena DEPT: SURGICAL PATHOLOGY RECD BY: Sherice Vazquez ENTERED: 07/29/18 10:29 SP TYPE: Lesion OTHR DR: Dr. [place] Reid MD Tissues: Skin of eyelid, NOS Procedures: Surgery Specimen Level IV HEADER OPERATION: JAJA lesion, shave biopsy PRE-OP DIAGNOSIS: Increased size with vascularity of lid margin lesion TISSUE SUBMITTED: JAJA lesion MICROSCOPIC DIAGNOSIS Left upper eyelid lesion, shave biopsy: Intradermal nevus. See comment. AM:conchis 07/30/18 COMMENT Immunohistochemistry ([id number]) supports the above diagnosis. MICROSCOPIC DESCRIPTION Slides are reviewed. GROSS DESCRIPTION Received in fixative is one container labeled with the patient's name and designated JAJA lesion. The specimen consists of a piece of montemayor-white skin measuring 0.2 x 0.2 x 0.1 cm. The entire specimen is submitted in one cassette. / SJ:conchis 07/29/18 TC:5 CPT: [id number]
--- NOTE | 2018-07-28 | IMM_PTH ---
PATIENT: ANNETTE BOSS LOC: [facility] U#:[id number] AGE/SX: 72/F ROOM: RE07/28/[address]: Dr. Papa Cadena MD : [id number] BED: DIS: 07/28/2018 SPEC #: [id number] RECD: 07/30/18 13:43 STATUS: LAUREN REQ #: [id number] JUN: 07/28/18 00:[address]: Papa Cadena DEPT: IMMUNOHISTOCHEMISTRY RECD BY: Valentina Santos ENTERED: 07/30/18 13:45 SP TYPE: IMMUNO OTHR DR: Dr. Miles Reid MD Tissues: Skin of eyelid, NOS Procedures: CD45 (add) CK5-6 (add) MELAN-A (initial) P40 (add) S-100 (add) PHYSICIAN & INSTITUTION [place] [id number] SPECIMEN INFORMATION: Tissue Source: Left upper eyelid shave biopsy Clinical Info: Increased size with vascularity of lid margin lesion Specimen Number: [id number] CPT code: 52431, 76635 x4 METHODOLOGY: Deparaffinized sections of prefer/formalin-fixed tissue or PAP/DQ stained slides are incubated with monoclonal/polyclonal antibodies/oligonucleotide probes. Localization is made via biotin free immunoperoxidase method. Appropriate controls are performed and reacted as expected. Results on target cell population are indicated in the following table: RESULTS: ANTIBODY / CLONE RESULT S-100 (4C4.9) positive Melan A (A103) positive CD45 (RP2/18) negative P40 (BC28) negative CK5-6 (D5 & 1684) negative These tests were developed and their performance characteristics determined by [facility]. They may not have been cleared or approved by the U.S. Food and Drug Administration. The FDA has determined that such clearance or approval is not necessary. INTERPRETATION: Left upper eyelid, shave biopsy: Consistent with intradermal nevus. AM:conchis 07/31/18
== END | disposition home or self-care (01) ==
PROVIDERS: Family Provider Family Medicine; PCP Family Medicine; Visit Provider Ophthalmology
DX: L98.9 Disorder of the skin and subcutaneous tissue, unspecified (principal)
CPT/HCPCS: 88305; 88341; 88342

== ENCOUNTER → 2018-08-01 | Outpatient (CLI) | payer MEDICARE, OTHER, SELFPAY ==
[2018-08-01 10:27] LABS: Absolute Lymphocyte Count 1.58 X10^3/ul (0.83-4.51); Absolute Neutrophil Count 4.5 X10^3/uL (2.0-7.7); Basophil# 0.01 X10^3/uL; Basophil% 0.1 % (0-1); Eosinophil# 0.25 X10^3/uL; Eosinophils% 3.5 % (0-5); Lymphocyte # 1.58 X10^3/ul (4.0); Lymphocyte % 22.3 % (19-41); Mean Corp Hgb Conc 31.8 g/gl (32-36); Mean Corpuscular Hgb 27.7 pg (27.0-32.0); Mean Corpuscular Volume 87.1 fL (81-99); Mean Platelet Vol. 10.3 fl (6.2-12.0); Monocyte# 0.72 X10^3/uL; Monocyte% 10.2 % (0-10); Neutrophil # 4.51 X10^3/uL (2.7-7.7); Neutrophil % 63.8 % (47-70); POSITIVE COUNT NO; POSITIVE DIFFERENTIAL NO; POSITIVE MORPHOLOGY NO; Platelet Count 224 K/mm3 (150-450); RBC Distribution Width CV 15.3 % (11.6-14.6); RBC Distribution Width SD 48.8 fl (35.1-43.9); Red Blood Count 5.05 M/mm3 (4.2-5.4); White Blood Count 7.1 K/mm3 (4.4-11.0)
[2018-08-01 10:53] LABS: ALB/GLOB Ratio 0.8 RATIO (0.9-2.4); AST(SGOT) 22 U/L (15-37); Alanine Aminotransfer ALT/SGPT 31 U/L (13-56); Albumin, Serum 3.5 g/dL (3.2-5.0); Alkaline Phosphatase 151 U/L (45-117); Anion Gap 8 (5-15); BUN 17 mg/dL (7-18); BUN/Creat Ratio 17.1 RATIO (10-20); Calcium,Total 9.3 mg/dL (8.5-10.1); Chloride 107 mmol/L (98-107); EST Glomerular Filtration Rate 58 mL/min (>60); Est Glom Filt Rate - Afr Amer 70 mL/min (>60); Globulin 4.2 g/dL (2.2-4.2); Glucose 115 mg/dL (74-106); Potassium 4.4 mmol/L (3.5-5.1); Protein, Total 7.7 g/dL (6.4-8.2); Sodium Level 144 mmol/L (136-145)
== END | disposition home or self-care (01) ==
LOC: LAB 09:26
PROVIDERS: Family Provider Family Medicine; PCP Family Medicine; Referring Provider Internal Medicine Rheumatology; Visit Provider Internal Medicine Rheumatology
DX: M06.09 Rheumatoid arthritis without rheumatoid factor, multiple sites (principal); M79.7 Fibromyalgia; M17.0 Bilateral primary osteoarthritis of knee; K76.0 Fatty (change of) liver, not elsewhere classified; Z79.899 Other long term (current) drug therapy
CPT/HCPCS: 36415; 80053; 85025

== ENCOUNTER → 2018-08-05 | Outpatient (CLI) | payer MEDICARE, OTHER, SELFPAY ==
--- NOTE | 2018-08-05 15:41 | RAD_ITS ---
STUDY: X-RAY - CERVICAL SPINE REASON FOR EXAM: Female, 72 years old. Pain. TECHNIQUE: 3 view(s) of the cervical spine were obtained. COMPARISON: None FINDINGS: Normal anterior atlantoaxial articulation. Normal odontoid process. Moderate loss of disc height at C4-C5, C5-C6, and C6-C7. 3 mm retrolisthesis of C4 on C5, otherwise normal alignment. Normal cervical lordosis. The soft tissue structures are unremarkable. There is no demonstrated fracture of the cervical spine. RAD/Cerv Spine 2 or 3 Views IMPRESSION: No definite acute abnormality. Multilevel degenerative changes. Electronically Signed: Michael Henderson MD at 17:57 EDT , Service support ,
== END | disposition home or self-care (01) ==
LOC: RAD 15:40
PROVIDERS: Family Provider Family Medicine; PCP Family Medicine; Referring Provider Anesthesiology Pain Medicine; Visit Provider Anesthesiology Pain Medicine
DX: M54.2 Cervicalgia (principal); M79.603 Pain in arm, unspecified
CPT/HCPCS: 72040

== ENCOUNTER → 2018-08-25 | Outpatient (CLI) | payer MEDICARE, OTHER, SELFPAY ==
--- NOTE | 2018-08-25 10:15 | BI_ITS ---
MAMMOGRAPHY - BILATERAL SCREENING REASON FOR EXAM: Female, 72 years old. Routine annual screening examination. PERTINENT HISTORY: Sister with breast cancer. TECHNIQUE: Digital bilateral breast julia (3D mammographic acquisition) in the CC and MLO projections. 2-D mediolateral oblique (MLO) and craniocaudad (CC) views of both breasts were obtained. CAD: Full Field Digital Mammography with Computer Added Detection was performed. COMPARISON: Comparison is made with prior study dated August 22, 2017 and August 05, 2016. FINDINGS: Breast Composition: There are scattered areas of fibroglandular density. There are no dominant masses or suspicious calcifications. Stable 1 cm well-defined nodule in the upper deep lateral aspect of the right breast most likely secondary to a lymph node. No other significant abnormalities are identified. There has been no significant change since the prior study. BI/SCREEN MAMM (CAD) W/JULIA BILAT IMPRESSION: Stable bilateral screening mammogram. Yearly follow-up mammogram recommended. (A) ASSESSMENT CATEGORY: BIRADS Category 2: Benign. A letter regarding these results will be sent to the patient by the facility within 30 days. Approximately 10% of breast cancers are not detected by mammography. A normal mammogram should not delay biopsy of a clinically suspicious abnormality. [id number] Electronically Signed: Wilman Louise, at 13:42 EDT , Service support ,
== END | disposition home or self-care (01) ==
LOC: OPBI 10:13
PROVIDERS: Family Provider Family Medicine; PCP Family Medicine; Referring Provider Family Medicine; Visit Provider Family Medicine
DX: Z12.31 Encounter for screening mammogram for malignant neoplasm of breast (principal)
CPT/HCPCS: 77063; 77067

== ENCOUNTER → 2018-10-13 | Outpatient (CLI) | payer MEDICARE, OTHER, SELFPAY ==
--- NOTE | 2018-10-13 08:46 | VDLE_ITS ---
Reason For Study: Leg pain RIGHT GSV is normal. CFV is compressible, spontaneous, phasic, competent and demonstrates normal augmentation. FV is compressible, spontaneous, phasic, competent and demonstrates normal augmentation. POP V is compressible, spontaneous, phasic, competent and demonstrates normal augmentation. T/P Trunk is compressible. PTV is compressible. RT PerV is compressible. Nonvascularized structure noted in the popliteal space measuring approximently 1.99 x 1.00 x 3.85 cm. Procedure Exam performed in department. A preliminary report was called and/or faxed to [facility]. Interpretation Summary Deep veins of the right lower extremity are patent and compressible segmentally. There is no evidence of right lower extremity deep vein thrombosis. Valvular competence appears intact within the proximal deep venous system on the right . The right great saphenous vein appears patent and compressible segmentally. A non-vascular, hypoechoic structure is noted in the right popliteal space, measuring 1.99 cm x 1.00 cm x 3.85 cm. This probably represents a popliteal cyst. Clinical correlation is advised. Ordering Physician: Miles Reid Referring Physician: Miles Reid Performed By: Francia Morin RVT
== END | disposition home or self-care (01) ==
LOC: CVS 08:45
PROVIDERS: Family Provider Family Medicine; PCP Family Medicine; Referring Provider Family Medicine; Visit Provider Family Medicine
DX: M79.604 Pain in right leg (principal)
CPT/HCPCS: 93971

== ENCOUNTER → 2018-10-16 | Outpatient (CLI) | payer MEDICARE, OTHER, SELFPAY ==
[2018-10-16 14:28] LABS: Anion Gap 5 (5-15); BUN 14 mg/dL (7-18); BUN/Creat Ratio 15.7 RATIO (10-20); Calcium,Total 8.9 mg/dL (8.5-10.1); Chloride 110 mmol/L (98-107); Creatinine, Serum 0.89 mg/dL (0.55-1.02); EST Glomerular Filtration Rate 65 mL/min (>60); Est Glom Filt Rate - Afr Amer 79 mL/min (>60); Glucose 93 mg/dL (74-106); Potassium 4.1 mmol/L (3.5-5.1); Sodium Level 145 mmol/L (136-145)
== END | disposition home or self-care (01) ==
LOC: MFPLAB 11:38
PROVIDERS: Family Provider Family Medicine; PCP Family Medicine; Referring Provider Family Medicine; Visit Provider Family Medicine
DX: M10.9 Gout, unspecified (principal)
CPT/HCPCS: 36415; 80048; 84550

== ENCOUNTER → 2018-10-21 | Outpatient (CLI) | payer MEDICARE, OTHER, SELFPAY ==
[2018-10-21 16:09] LABS: Pathologist Comment May follow
[2018-10-21 17:22] LABS: Synovial Fld Mononuclear WBC % 71.4 %; Synovial Fld Polynuclear WBC # 1.092 10^3/uL; Synovial Fld Polynuclear WBC % 28.6 %
[2018-10-21 18:49] LABS: RBC /Synovial Fluid 0.009 10^6/uL (0)
[2018-10-21 19:01] LABS: AUTO B FLUID DILUENT BKGD CT WBC <0.1 RBC <0.01 (W<.1,R<.01)
[2018-10-21 19:02] LABS: CRYSTALS, BODY FLUID See PATH REV
[2018-10-21 19:04] LABS: Appearance /Synovial Fluid Sl Cl (CLEAR); Color / Synovial Fluid Yellow (Pale Yellow)
[2018-10-21 20:32] LABS: Lymph 71 %; Monocyte /Synovial Fluid 2 %; Neutrophil 27 % (0-25); Plasma Cell /Synovial Fluid 0 %
[2018-10-22 13:40] LABS: Pathologist Review Reviewed
== END | disposition home or self-care (01) ==
LOC: LABSPEC 15:51
PROVIDERS: Family Provider Family Medicine; PCP Family Medicine; Referring Provider Internal Medicine Rheumatology; Visit Provider Internal Medicine Rheumatology
DX: M06.09 Rheumatoid arthritis without rheumatoid factor, multiple sites (principal); M79.7 Fibromyalgia; M17.0 Bilateral primary osteoarthritis of knee; K76.0 Fatty (change of) liver, not elsewhere classified; M10.9 Gout, unspecified; Z79.899 Other long term (current) drug therapy
CPT/HCPCS: 87070; 87075; 87205; 89050; 89051; 89060

== ENCOUNTER → 2018-11-04 | Outpatient (CLI) | payer MEDICARE, OTHER, SELFPAY ==
[2018-10-28 11:35] VITALS: BMI 43.5
[2018-11-04 16:58] LABS: Amphetamine Urine VISTA NEGATIVE (<1000 ng/mL); Barbiturate Urine VISTA NEGATIVE (< 200 ng/mL); Benzodiazepine Urine VISTA NEGATIVE (< 200 ng/mL); Cocaine Urine VISTA NEGATIVE (< 300 ng/mL); Ecstacy Urine VISTA NEGATIVE (< 500 ng/mL); Methadone Urine VISTA NEGATIVE (< 300 ng/mL); PCP Urine VISTA NEGATIVE (< 25 ng/mL); THC Urine VISTA NEGATIVE (< 50 ng/mL); Vista UDS pH Range 6
== END | disposition home or self-care (01) ==
PROVIDERS: Family Provider Family Medicine; PCP Family Medicine; Referring Provider Anesthesiology Pain Medicine; Visit Provider Anesthesiology Pain Medicine
DX: F11.20 Opioid dependence, uncomplicated (principal)
CPT/HCPCS: 80307

== ENCOUNTER → 2018-11-13 | Outpatient (CLI) | payer MEDICARE, OTHER, SELFPAY ==
[2018-10-28 11:35] VITALS: BMI 43.5
[2018-11-13 13:02] LABS: Absolute Lymphocyte Count 1.74 X10^3/uL (0.83-4.51); Absolute Neutrophil Count 3.1 X10^3/uL (2.0-7.7); Basophil# 0.02 X10^3/uL; Basophil% 0.3 % (0-1); Eosinophil# 0.33 X10^3/uL; Eosinophils% 5.6 % (0-5); Hematocrit 43.5 % (37-47); Hemoglobin 13.6 g/dL (12.0-15.0); Lymphocyte # 1.74 X10^3/ul (4.0); Lymphocyte % 29.5 % (19-41); Mean Corp Hgb Conc 31.3 g/dL (32-36); Mean Corpuscular Hgb 28.6 pg (27.0-32.0); Mean Corpuscular Volume 91.6 fL (81-99); Mean Platelet Vol. 10.2 fl (6.2-12.0); Monocyte# 0.66 X10^3/uL; Monocyte% 11.2 % (0-10); NRBC Flagged by Analyzer 0 % (0-5); Neutrophil # 3.12 X10^3/uL (2.7-7.7); Neutrophil % 52.9 % (47-70); Platelet Count 171 K/mm3 (150-450); RBC Distribution Width CV 16.1 % (11.6-14.6); RBC Distribution Width SD 53.8 fl (35.1-43.9); Red Blood Count 4.75 M/mm3 (4.2-5.4); White Blood Count 5.9 K/mm3 (4.4-11.0)
[2018-11-13 13:51] LABS: ALB/GLOB Ratio 0.9 RATIO (0.9-2.4); AST(SGOT) 19 U/L (15-37); Alanine Aminotransfer ALT/SGPT 31 U/L (13-56); Albumin, Serum 3.4 g/dL (3.2-5.0); Alkaline Phosphatase 115 U/L (45-117); Anion Gap 10 (5-15); BUN 17 mg/dL (7-18); BUN/Creat Ratio 17.7 RATIO (10-20); Calcium,Total 9.2 mg/dL (8.5-10.1); Chloride 106 mmol/L (98-107); Creatinine, Serum 0.96 mg/dL (0.55-1.02); EST Glomerular Filtration Rate 60 mL/min (>60); Est Glom Filt Rate - Afr Amer 73 mL/min (>60); Globulin 3.7 g/dL (2.2-4.2); Glucose 94 mg/dL (74-106); Potassium 3.5 mmol/L (3.5-5.1); Protein, Total 7.1 g/dL (6.4-8.2); Sodium Level 144 mmol/L (136-145)
[2018-11-13 13:52] LABS: AST(SGOT) 19 U/L (15-37); Alanine Aminotransfer ALT/SGPT 30 U/L (13-56); Albumin, Serum 3.4 g/dL (3.2-5.0); Alkaline Phosphatase 114 U/L (45-117); Bilirubin, Direct 0.14 mg/dL (0.00-0.30); Cholesterol 180 mg/dL (200); Globulin 3.6 g/dL (2.2-4.2); High Density Lipoprotein 54 mg/dL; Triglycerides 208 mg/dL; Very Low Density Lipoprotein 42 mg/dL (5-40)
== END | disposition home or self-care (01) ==
LOC: MTLAB 10:12
PROVIDERS: Internal Medicine Cardiovascular Disease; Family Provider Family Medicine; PCP Family Medicine; Referring Provider Internal Medicine Rheumatology; Visit Provider Internal Medicine Rheumatology
DX: M06.9 Rheumatoid arthritis, unspecified (principal); E78.5 Hyperlipidemia, unspecified; M79.7 Fibromyalgia; M17.0 Bilateral primary osteoarthritis of knee; K76.0 Fatty (change of) liver, not elsewhere classified; Z79.899 Other long term (current) drug therapy
CPT/HCPCS: 36415; 80053; 80061; 80076; 84550; 85025

== ENCOUNTER 2018-11-25 13:25 | Inpatient (IN) | payer MEDICARE, OTHER, SELFPAY ==
[2018-10-28 11:35] VITALS: BMI 43.5
[2018-11-25] VITALS (13 sets, daily range): BP systolic 110–153; BP diastolic 66–93; PULSE 98–149; RESP 16–30; TEMP 36.8–37; O2SAT 93–98; BMI 43.3; BMI 41.4
--- NOTE | 2018-11-25 14:07 | CT_ITS ---
STUDY: CT BRAIN WITHOUT CONTRAST REASON FOR EXAM: Female, 72 years old. Confusion. Recent falls. RADIATION DOSAGE (If Supplied By Facility): CTDIvol = ( 44.99 ) mGy, DLP = ( 812.98 ) mGycm TECHNIQUE: Transaxial CT imaging of the brain was performed without administration of intravenous contrast material. Individualized dose optimization techniques were used for this CT. COMPARISON: No relevant priors. FINDINGS: Normal soft tissue structures. Normal calvarium. There is mild cerebral atrophy with widening of the extra-axial spaces and ventricular dilatation. There are areas of decreased attenuation within the white matter tracts of the supratentorial brain, consistent with microvascular disease changes. Normal basal ganglia and thalami. Normal brainstem. Normal cerebellum. There is no intracranial hemorrhage. There are no findings of an acute ischemic infarction. Normal visualized paranasal sinuses. CT/Brain/Head without Contrast IMPRESSION: Chronic involutional changes of the brain. Electronically Signed: Wilman Louise, at 14:56 EDT , Service support ,
--- NOTE | 2018-11-25 14:07 | EKG12_ITS ---
Test Reason : TACHYCARDIA Blood Pressure : / mmHG Vent. Rate : 156 BPM Atrial Rate : 166 BPM P-R Int : 000 ms QRS Dur : 076 ms QT Int : 288 ms P-R-T Axes : 000 -20 049 degrees QTc Int : 464 ms Atrial fibrillation with rapid ventricular response with premature ventricular or aberrantly conducte d complexes Moderate voltage criteria for LVH, may be normal variant Inferior infarct , age undetermined Abnormal ECG Confirmed by JEANETTE LOCKHART, JAYMIE ([id number]), television news video editor CORONA HOOKS ([id number]) on 12/01/2018 10:28:38 AM Referred By: John Alvarez Confirmed By:CHARLENE REID MD
--- NOTE | 2018-11-25 14:14 | ED.DCSUM_ITS ---
- ER Visit Summary Date of Service: 11/25/18 Chief Complaint: Confusion and frequent falls History of Present Illness: The patient is a 72 F who presents with confusion and frequent falls for the past couple days. Patient states she has been getting forgetful. Patient states she has had mechanical falls over the past couple days where she slipped on a wet floor and tripped over the corner of a wall. Patient did hit her head. Patient does not think she had any loss of consciousness. Patient denies any recent fevers but admits to subjective chills. Patient is unsure if she took her blood pressure heart medications today. Physical Examination: Vital signs are stable except for a tachycardia of 138 and a mild tachypnea of 24. Patient is afebrile. Patient is in no acute distress. Oral mucosa is pink and moist. Oropharynx is clear. Neck is supple. Trachea is midline. There is no JVD noted. Heart was irregularly irregular and tachycardic. Lungs are clear and equal bilaterally. Abdomen is soft. Bowel sounds are normal. There is no tenderness. Cranial nerves II through XII are intact. There are no focal motor or sensory deficits noted. Test Results: EKG showed atrial fibrillation with a rate of 156. There are frequent PVCs. There are no acute ST or T wave changes. There is evidence of left ventricular hypertrophy. CBC showed leukocytosis of 19.4. Creatinine was slightly elevated at 1.26. Urinalysis shows leukocyte esterase of 500 with greater than 100 white blood cells and 4+ bacteria. PA and lateral chest x-ray shows mild vascular congestion. There is no acute infiltrate. CT scan of the brain was obtained. There are chronic changes but no acute intracranial abnormality. Emergency Department Course and Treatment: Since the patient did not think she took her normal medications this morning, she was given her normal dose of metoprolol. Patient's heart rate improved to 108. Serum lactate was ordered and is pending. Blood cultures were ordered. Urine culture was ordered. Patient was given a dose of Rocephin here. Case was discussed with the hospitalist. Patient will be admitted to the hospital. Disposition: Admit to hospital Impression: 1. Urinary tract infection 2. Leukocytosis 3. Confusion episodes 4. Sepsis This note was generated with [employer] software. It may contain incorrect words, spelling, and punctuation that were not noted in review of the chart prior to signing ED Disposition - Plan for ED Patient: Disposition: Acute Care Hospital [facility] Diagnosis: Urinary tract infection, Leukocytosis, Episodic confusion, Sepsis Referrals: Miles Reid MD [Primary Care Provider] -
[2018-11-25 14:21] LABS: Absolute Lymphocyte Count 0.71 X10^3/uL (0.83-4.51); Absolute Neutrophil Count 16.3 X10^3/uL (2.0-7.7); Basophil# 0.05 X10^3/uL; Basophil% 0.3 % (0-1); Eosinophil# 0.06 X10^3/uL; Eosinophils% 0.3 % (0-5); Hematocrit 38.7 % (37-47); Hemoglobin 12.7 g/dL (12.0-15.0); Lymphocyte # 0.71 X10^3/ul (4.0); Lymphocyte % 3.7 % (19-41); Mean Corp Hgb Conc 32.8 g/dL (32-36); Mean Corpuscular Volume 88.4 fL (81-99); Mean Platelet Vol. 10.3 fl (6.2-12.0); Monocyte# 2.05 X10^3/uL; Monocyte% 10.6 % (0-10); NRBC Flagged by Analyzer 0 % (0-5); Neutrophil # 16.32 X10^3/uL (2.7-7.7); Neutrophil % 84.2 % (47-70); POSITIVE DIFFERENTIAL YES; POSITIVE MORPHOLOGY YES; Platelet Count 153 K/mm3 (150-450); RBC Distribution Width CV 15.9 % (11.6-14.6); RBC Distribution Width SD 52.3 fl (35.1-43.9); Red Blood Count 4.38 M/mm3 (4.2-5.4); White Blood Count 19.4 K/mm3 (4.4-11.0)
[2018-11-25 14:22] LABS: Differential Indicated SCAN CRITERIA MET
[2018-11-25] MEDS: Metoprolol Tartrate 25 MG Tablet 50 MG PO (14:31)
[2018-11-25 14:35] LABS: Anion Gap 12 (5-15); BUN 28 mg/dL (7-18); BUN/Creat Ratio 22.2 RATIO (10-20); Calcium,Total 9.1 mg/dL (8.5-10.1); Chloride 106 mmol/L (98-107); Creatinine, Serum 1.26 mg/dL (0.55-1.02); EST Glomerular Filtration Rate 44 mL/min (>60); Est Glom Filt Rate - Afr Amer 53 mL/min (>60); Glucose 159 mg/dL (74-106); Sodium Level 140 mmol/L (136-145)
--- NOTE | 2018-11-25 14:43 | RAD_ITS ---
STUDY: X-RAY CHEST REASON FOR EXAM: Female, 72 years old. Cough. Confusion. TECHNIQUE: AP and lateral views of the chest. COMPARISON: Comparison is made with prior study dated April 15, 2018. FINDINGS: EKG electrodes are seen. Mild degree of vascular congestion. Increased markings at the lung bases slightly more prominent on the left side suggestive bibasilar atelectasis. Minimal thickening of the right minor fissure. There is no demonstrated pleural abnormality. There is mild cardiac enlargement. Normal mediastinum and uche. Normal visualized pulmonary arteries. There is atherosclerotic calcification of the aortic arch with tortuosity. There are diffuse degenerative changes of the visualized thoracic spine. Normal visualized ribs, clavicles, and shoulders. There is no demonstrated abnormality of the visualized soft tissue structures of the upper abdomen. RAD/Chest PA and Lateral IMPRESSION: Findings suggestive of a mild degree of vascular congestion with mild degree of bibasilar atelectasis slightly worse on the left side. Electronically Signed: Wilman Louise, at 15:12 EDT , Service support ,
[2018-11-25 15:11] LABS: Mucous, Urine 0 SEEN /hpf (<or=2+)
[2018-11-25 15:14] LABS: Color, Urine Yellow (Yellow); Glucose, Dipstick Normal (Normal); Ketone-Dipstick Negative (Negative); Leukocyte Esterase-Dipstick 500 /ul (Negative); Nitrite-Dipstick Negative (Negative); Occult Blood-Urine 150 /ul (Negative); Protein-Dipstick 100 mg/dl (Negative); Specific Gravity, Urine 1.015 (1.002-1.030); Urine Bilirubin Dipstick Negative (Negative); Urine Clarity Cloudy (Clear); Urine Urobilinogen Normal (Normal)
[2018-11-25 15:44] LABS: Amorphous Sediment 1+; Bacteria 4+ /hpf (None Seen); Squamous Epithelial Cells - UA 0-5 SEEN /hpf (5-10); White Blood Cells >100 SEEN /hpf (0-5)
[2018-11-25 15:46] LABS: Red Blood Cells-Urine 0-5 SEEN /hpf (0-5)
--- NOTE | 2018-11-25 16:41 | NURSING ---
MED SURG UTI, SEPSIS TERELETSKY
[2018-11-25] MEDS: Ceftriaxone 1 GM/50 ML BAG IV (17:01)
[2018-11-25 17:08] LABS: Lactic Acid 1.9 mmol/L (0.4-2.0)
[2018-11-25] MEDS: 0.9% Normal Saline 1,000 ML 100 ML IV (17:40)
--- NOTE | 2018-11-25 18:34 | HP.PCM_ITS ---
Problem List (1) Fall at home Status: Acute (2) Malaise Status: Acute (3) Chills Status: Acute History of Present Illness Date of Admission: 11/25/18 Chief Complaint: Malaise, falls at home, chills The patient is a 72 year old F in in the emergency room at [facility] with chief complaint of increasing episodes of unsteadiness with falls at home over the past month, she has been complaining of chills this morning and approximately 2 weeks ago, she denies any fevers, a friend who accompanied the patient to the emergency room stated that the patient was mildly confused today. Work-up in the emergency room included a CBC which showed an elevated white blood cell count of 19.4, creatinine was elevated at 1.26, BUN was 28. Patient was noted to be in atrial fibrillation in the emergency room, she stated that she did not know whether she took her medication today (metoprolol). She was given a dose of metoprolol orally in the emergency room. Patient's lactic acid was 1.9, glucose was 159. Patient's urinalysis was positive for more than 100 WBCs, 0-5 RBCs, and +4 bacteria. Patient was afebrile in the emergency room. Patient will be admitted for acute sepsis secondary to acute cystitis, IV fluids will be administered, she will be seen by PT and OT due to her unsteadiness and generalized debility. 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) I25.2 Paroxysmal atrial fibrillation (Acute) I48.0 Nonrheumatic mitral (valve) insufficiency (Acute) I34.0 Nonrheumatic mitral (valve) prolapse (Acute) I34.1 Screening for intestinal cancer (Acute) Z12.10 Recurrent pancreatitis (Chronic) K86.1 Hyperlipidemia (Chronic) E78.5 Familial combined hyperlipidemia (Chronic) E78.4 Morbid obesity with BMI of 40.0-44.9, adult (Chronic) E66.01, Z68.41 Benign hypertension (Chronic) I10 Gout M10.9 Diverticulitis K57.92 Fibromyalgia M79.7 GERD (gastroesophageal reflux disease) K21.9 Rheumatoid arthritis M06.9 Spinal stenosis of lumbar region M48.061 Allergies Penicillins Allergy (Verified 10/28/18 11:00) Hives atorvastatin [From Lipitor] Adverse Reaction (Severe, Verified 10/28/18 11:00) Elevated LFT Home Medications: Ambulatory Orders Medication Instructions Recorded Aspirin E.C. [Ecotrin] 81 mg PO DAILY@0800 tab 07/27/15 Esomeprazole Mag Trihydrate 20 mg PO DAILY 08/14/16 [Nexium] Ranitidine [Zantac] 300 mg PO QHS 08/14/16 Oxycodone HCl/Acetaminophen 1 tab PO BID 05/01/17 [Percocet 5-325] etanercept 50 mg/mL (1 mL) 50 mg SC QWEEK 01/05/18 subcutaneous syringe amlodipine 2.5 mg tablet 2.5 mg PO DAILY #90 tab 02/02/18 metoprolol tartrate 50 mg tablet 50 mg PO BID #180 tab 02/02/18 allopurinol 100 mg tablet 200 mg PO DAILY 10/28/18 prednisone 5 mg tablet 5 mg PO DAILY 10/28/18 Ezetimibe 10 mg PO QHS 11/25/18 Oxybutynin Chloride [Oxybutynin 15 mg PO DAILY 11/25/18 Chloride ER] Surgical History: Surgical History (Last Reviewed 10/28/18 @ 11:02 by Shania Pinon) H/O endoscopic retrograde cholangiopancreatography Z98.890 with removal of stent and biliary sludge History of appendectomy Z90.49 History of back surgery Z98.890 History of cardiac radiofrequency ablation Onset Date: ~10/2008 Z98.890 History of cholecystectomy Z90.49 History of left knee replacement Z96.652 S/P lumbar fusion Z98.1 Surgical History: appendectomy, cataract, cholecystectomy, total knee arthroplasty - left, - - Foot surgery, carpal tunnel surgery Psychiatric History: No pertinent psych hx 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 Denies: Anorexia, Fever, Night Sweats, Fatigue Eyes: Denies: Cataracts, Conjunctivae Inflammation, Double vision, Drainage HEENT: Denies: Difficulty Swallowing, Dysphasia, Ear Pain, Eye Pain, Hearing Changes, Nasal bleeding, Nasal Congestion, Post Nasal Drip Cardiovascular: Denies: Claudication, Chest Pressure, Chest Tightness, Edema, Heaviness, Palpitations, Paroxysmal Noc. Dyspnea Respiratory: Denies: Hemoptysis, Pleuritic Pain, Shortness of Breath, Shortness of breath upon exertion, Sputum production Gastrointestinal: Denies: Constipation, Diarrhea, Hematochezia, Nausea Genitourinary: Denies: Dysuria, Frequency, Hematuria, Nocturia, Retention Musculoskeletal: Reports: Joint Pain - She complains of generalized joint pain secondary to RA. Denies: Back Pain, Foot Pain, Hand Pain, Joint swelling, Joint Tenderness, Leg Pain, Neck Pain Skin: Denies: Dryness, Jaundice, Pruritis, Rash Neurological: Denies: Double vision, Change in Speech, Slurred speech, Focal weakness, Headaches, Incoordination Psychiatric: Denies: Anxiety, Depression Endocrine: Denies: Polydipsia, Polyuria VTE Information - Inpt Only VTE Present on Admission: No VTE Mechan Device Prophylaxis: None VTE Pharm Prophylaxis ordered?: Yes Patient Problems: Active and Suspected Problems (Last Updated 10/28/18 @ 11:02 by Shania Pinon) Urinary tract infection (Acute) Leukocytosis (Acute) Episodic confusion (Acute) Sepsis (Acute) Fall at home (Acute) Malaise (Acute) Chills (Acute) - Physical Exam General: Alert, Oriented x3, Cooperative, No apparent distress, Well developed HEENT: Atraumatic, PERRLA, EOMI, Normocephalic Oral: Moist Mucosa Neck: Supple, No JVD, Trachea Midline, Thyroid Normal Size and Texture Lungs: Clear to auscultation, Normal air movement, No rhonchi, No wheeze, No rales Cardiovascular: No murmurs, PMI Normal, Irregular Rate, No rub noted Abdomen: Bowel Sounds Present, Soft, Non Tender, Non-Distended, Obese Extremities: No clubbing, No cyanosis, No edema, Capillary Refill Less than 3 Seconds Skin: No rashes, No breakdown Musculoskeletal: No Tenderness to Palpation of Joints or Extremities Neurological: Cranial nerves II-XII grossly intact, Neuro grossly intact, Sensory exam intact to light touch and pain, Coordination normal Psych/Mental Status: Normal Affect, Appropriate, Alert and oriented to time, place, person, mood and affect Vital Signs Temp Pulse Resp BP Pulse Ox 98.2 F 100 18 153/90 H 94 11/25/18 17:39 11/25/18 17:45 11/25/18 17:39 11/25/18 17:39 11/25/18 17:39 Oxygen Delivery Method Room Air Weight: 106.1 kg Body Mass Index (BMI) 41.4 Intake and Output for Last 24 Hours 11/23/18 11/24/18 11/25/18 23:59 23:59 23:59 Intake Total 50 / 50 Balance 50 / 50 Laboratory Tests Past 24 Hrs 11/25/18 11/25/18 11/25/18 13:46 13:46 14:35 WBC 19.4 H RBC 4.38 Hgb 12.7 Hct 38.7 MCV 88.4 MCH 29.0 MCHC 32.8 RDW Std Deviation 52.3 H RDW Coeff of Patel 15.9 H Plt Count 153 MPV 10.3 Immature Gran % (Auto) 0.900 Neut % (Auto) 84.2 H Lymph % (Auto) 3.7 L Hutchinson % (Auto) 10.6 H Eos % (Auto) 0.3 Baso % (Auto) 0.3 Absolute Neuts (auto) 16.3 H Absolute Lymphs (auto) 0.71 L Nucleated RBC % 0 Differential Comment COMMENT Diff Path Review May foll Sodium 140 Potassium 4.0 Chloride 106 Carbon Dioxide 22.0 Anion Gap 12 BUN 28 H Creatinine 1.26 H Estim Creat Clear Calc 32.40 Est GFR (MDRD) Af Amer 53 L Est GFR (MDRD) Non-Af 44 L BUN/Creatinine Ratio 22.2 H Glucose 159 H Lactic Acid 1.9 Calcium 9.1 Troponin I < 0.015 Urine Color Urine Clarity Urine pH Ur Specific [place] Urine Protein Urine Glucose (UA) Urine Ketones Urine Occult Blood Urine Nitrite Urine Bilirubin Urine Urobilinogen Ur Leukocyte Esterase Urine RBC Urine WBC Ur Squamous Epith Cells Amorphous Sediment Urine Bacteria Urine Mucus 11/25/18 15:05 WBC RBC Hgb Hct MCV MCH MCHC RDW Std Deviation RDW Coeff of Patel Plt Count MPV Immature Gran % (Auto) Neut % (Auto) Lymph % (Auto) Hutchinson % (Auto) Eos % (Auto) Baso % (Auto) Absolute Neuts (auto) Absolute Lymphs (auto) Nucleated RBC % Differential Comment Diff Path Review Sodium Potassium Chloride Carbon Dioxide Anion Gap BUN Creatinine Estim Creat Clear Calc Est GFR (MDRD) Af Amer Est GFR (MDRD) Non-Af BUN/Creatinine Ratio Glucose Lactic Acid Calcium Troponin I Urine Color Yellow Urine Clarity Cloudy Urine pH 5.0 Ur Specific [place] 1.015 Urine Protein 100 H Urine Glucose (UA) Normal Urine Ketones Negative Urine Occult Blood 150 H Urine Nitrite Negative Urine Bilirubin Negative Urine Urobilinogen Normal Ur Leukocyte Esterase 500 H Urine RBC 0-5 SEEN Urine WBC >100 SEEN Ur Squamous Epith Cells 0-5 SEEN Amorphous Sediment 1+ Urine Bacteria 4+ Urine Mucus 0 SEEN Assessment/Plan All Active Problems (Last Updated 10/28/18 @ 11:02 by Shania Pinon) Urinary tract infection (Acute) Leukocytosis (Acute) Episodic confusion (Acute) Sepsis (Acute) Fall at home (Acute) Malaise (Acute) Chills (Acute) Acute bronchitis (Acute) Old myocardial infarction (Acute) Paroxysmal atrial fibrillation (Acute) Nonrheumatic mitral (valve) insufficiency (Acute) Nonrheumatic mitral (valve) prolapse (Acute) Screening for intestinal cancer (Acute) #1 acute sepsis secondary to acute cystitis-patient will be admitted to [facility], IV antibiotics will be administered, patient will receive IV fluids, labs will be rechecked #2 dehydration-patient will be given IV fluids at a rate of 100/hour, labs will be rechecked #3 generalized debility-probably secondary to acute sepsis on a backdrop of chronic RA, patient will be seen by PT and OT, patient lives in independent living now, she may need temporary placement in a long-term facility if it is so indicated by physical therapy. #4 morbid obesity #5 paroxysmal atrial fibrillation-patient's heart rate is tachycardic today, she does not remember if she took her morning medication. Patient is not currently on any anticoagulation, I will discuss this with her further #6 hypertension #7 history of confusion recently-this is probably secondary to her sepsis and cystitis, patient will be seen by PT and OT Code Visit Inpatient E&M: 21487 Init Hosp L3
--- NOTE | 2018-11-25 20:20 | ECHOCS_ITS ---
Reason For Study: ATRIAL FIB FLUTTER Procedure This was a 2D Doppler, Color Flow transthoracic echocardiogram. The study was technically difficult. Contrast injection was performed. Exam performed portable in patient room. Left Ventricle Normal LV size. Left ventricular systolic function is normal. The estimated ejection fraction is 70 %. Unable to assess diastolic dysfunction. No regional wall motion abnormalities noted. Right Ventricle Normal RV size. Normal systolic function. Atria The left atrium is severely enlarged. Normal right atrium. No doppler evidence for ASD. Mitral Valve There is moderate mitral annular calcification. Extension of the mitral annular calcification onto the posterior mitral valve leaflet peer. Moderate focal mitral valve calcification of the anterior leaflet. Mild mitral valve prolapse. Moderate (2+) mitral valve insufficiency. Tricuspid Valve Normal tricuspid valve. Mild tricuspid valve insufficiency. Right ventricular systolic pressure estimated to be 42 mmHg. Aortic Valve Trisinus/trileaflet aortic valve. Normal aortic valve. Trivial aortic valve insufficiency. Pulmonic Valve The pulmonic valve is not well visualized. Mild (1+) pulmonic valve insufficiency. Great Vessels Normal sized aortic root. Calcified aortic root. Pericardium/Pleural No pericardial effusion. Medication Diluted definity 2ml given slow IV push to enhance endocardial definition. MMode/2D Measurements & Calculations LVIDd: 3.7 cm IVSd: 1.0 cm Ao root diam: 3.3 cm LVIDs: 2.0 cm LVPWd: 1.2 cm RVDd: 3.2 cm FS: 47.1 % LAV(MOD-bp): 79.1 ml LVAd ap4: 27.2 cm2 SV(MOD-sp4): 55.9 ml LAV(MOD-bp) Indexed: 38.3 ml/m2 EDV(MOD-sp4): 83.1 ml LAV(MOD-sp2): 68.1 ml EDV(sp4-el): 89.5 ml LAV(MOD-sp4): 80.6 ml LVAs ap4: 14.4 cm2 ESV(MOD-sp4): 27.1 ml ESV(sp4-el): 29.0 ml EF(MOD-sp4): 67.4 % EF(sp4-el): 67.6 % SV(sp4-el): 60.5 ml LA A4 area: 26.3 cm2 LA dimension(2D): 4.8 cm RA A4 area: 14.5 cm2 Doppler Measurements & Calculations MV E max je: 149.5 cm/sec Ao V2 max: 149.9 cm/sec LV V1 max: 156.2 cm/sec Ao max P.0 mmHg LV V1 max P.8 mmHg PA V2 max: 100.9 cm/sec TR max je: 311.7 cm/sec TR max P.9 mmHg Interpretation Summary The study was technically difficult. Contrast injection was performed. Left ventricular systolic function is normal. The estimated ejection fraction is 70 %. The left atrium is severely enlarged. There is moderate mitral annular calcification. Extension of the mitral annular calcification onto the posterior mitral valve leaflet peer Moderate focal mitral valve calcification of the anterior leaflet. Mild mitral valve prolapse. Moderate (2+) mitral valve insufficiency. Mild tricuspid valve insufficiency. Trivial aortic valve insufficiency. Mild (1+) pulmonic valve insufficiency. Calcified aortic root. Right ventricular systolic pressure estimated to be 42 mmHg. Unable to assess diastolic dysfunction. Ordering Physician: John Alvarez Referring Physician: MILES HUNG Performed By: Amy Fan RDCS
[2018-11-25] MEDS: Metoprolol Tartrate 50 MG Tablet PO (22:18)
[2018-11-25] MEDS: amLODIPine 2.5 MG Tablet PO (22:19)
[2018-11-25] MEDS: Heparin Injection (Vial) 5,000 UNIT/ML VIAL 5000 UNIT SC (22:21)
[2018-11-25] MEDS: Famotidine 20 MG Tablet PO (22:21)
[2018-11-25] MEDS: Ezetimibe 10 MG Tablet PO (22:21)
[2018-11-25] MEDS: oxyCODONE 5 MG Tablet 10 MG PO (22:27)
[2018-11-26] VITALS (13 sets, daily range): BP systolic 119–147; BP diastolic 58–84; PULSE 87–128; RESP 16–18; TEMP 36.3–37.1; O2SAT 93–100
[2018-11-26] MEDS: 0.9% Normal Saline 1,000 ML 100 ML IV ×2 (03:12→14:02)
[2018-11-26] MEDS: 0.9% NaCl Peripheral Flush Adult/Peds IV ×2 (06:04→15:14)
[2018-11-26] MEDS: Heparin Injection (Vial) 5,000 UNIT/ML VIAL 5000 UNIT SC ×2 (06:04→15:12)
[2018-11-26] MEDS: oxyCODONE 5 MG Tablet 10 MG PO ×2 (06:09→18:01)
[2018-11-26 07:47] LABS: Absolute Lymphocyte Count 0.54 X10^3/uL (0.83-4.51); Absolute Neutrophil Count 9.6 X10^3/uL (2.0-7.7); Basophil# 0.02 X10^3/uL; Basophil% 0.2 % (0-1); Eosinophil# 0.06 X10^3/uL; Eosinophils% 0.5 % (0-5); Hematocrit 37.1 % (37-47); Hemoglobin 11.8 g/dL (12.0-15.0); Lymphocyte # 0.54 X10^3/ul (4.0); Lymphocyte % 4.6 % (19-41); Mean Corp Hgb Conc 31.8 g/dL (32-36); Mean Corpuscular Hgb 28.8 pg (27.0-32.0); Mean Corpuscular Volume 90.5 fL (81-99); Mean Platelet Vol. 10.2 fl (6.2-12.0); Monocyte# 1.45 X10^3/uL; Monocyte% 12.4 % (0-10); NRBC Flagged by Analyzer 0 % (0-5); Neutrophil % 81.8 % (47-70); POSITIVE DIFFERENTIAL YES; POSITIVE MORPHOLOGY YES; Platelet Count 136 K/mm3 (150-450); RBC Distribution Width CV 16.1 % (11.6-14.6); White Blood Count 11.7 K/mm3 (4.4-11.0)
[2018-11-26 07:52] LABS: Differential Indicated SCAN CRITERIA MET
[2018-11-26 08:09] LABS: Anion Gap 5 (5-15); BUN 21 mg/dL (7-18); BUN/Creat Ratio 20.8 RATIO (10-20); Calcium,Total 8.6 mg/dL (8.5-10.1); Chloride 108 mmol/L (98-107); Creatinine, Serum 1.01 mg/dL (0.55-1.02); EST Glomerular Filtration Rate 57 mL/min (>60); Est Glom Filt Rate - Afr Amer 69 mL/min (>60); Estimated Creatinine Clearance 40.42 ml/min; Glucose 126 mg/dL (74-106); Potassium 4.2 mmol/L (3.5-5.1); Sodium Level 137 mmol/L (136-145)
[2018-11-26] MEDS: Ceftriaxone 1 GM/50 ML BAG IV (09:50)
[2018-11-26] MEDS: Aspirin E.C. 81 MG Tablet PO (09:50)
[2018-11-26] MEDS: predniSONE 5 MG Tablet PO (09:51)
[2018-11-26] MEDS: Metoprolol Tartrate 50 MG Tablet PO (09:51)
[2018-11-26] MEDS: Pantoprazole Sodium 20 MG Tablet PO (09:52)
[2018-11-26] MEDS: Tolterodine Tartrate 4 MG CAP.SA PO (09:52)
[2018-11-26] MEDS: amLODIPine 2.5 MG Tablet PO (09:52)
[2018-11-26] MEDS: Allopurinol 100 MG Tablet 200 MG PO (09:52)
--- NOTE | 2018-11-26 10:28 | CASEMGMT ---
Assessment- SW completed assessment with patient. Living situation- Patient lives alone in a 1 story apartment with no entry steps. PCP: Dr Reid Specialists: Dr Resendiz-Pain Management Dr Macdonald- Cardiology Dr Danielle- Systems Spec Pharm[facility]: [facility] DME: cane, walker, and grab bars ADL's/IADL's: Patient is normally independent in all activities of daily living. She drives, bathes herself, manages her medications, cooks, cleans, and gets her own groceries. Past SNF/rehab: None Past HH: None LW: Yes. She is aware it is not on file and will try and bring it in when she leaves the hospital. POA: Yes. She is aware it is not on file and will try and bring it in when she leaves the hospital. Her sister Barb Goodson is her POA Plan: At this time patient plans on returning home. She said she feels better already. She is aware therapy will see her while she is here and we can see what recommendations they make. Tabatha MIDDLETON OFFICIAL GREETER
[2018-11-26 11:37] LABS: Pathologist Review Reviewed
--- NOTE | 2018-11-26 12:47 | PCM.CONS.C ---
Problem List (1) Paroxysmal atrial fibrillation Status: Acute (2) Nonrheumatic mitral (valve) insufficiency Status: Chronic (3) Old myocardial infarction Status: Chronic (4) Hyperlipidemia Status: Chronic Qualifiers: Hyperlipidemia type: unspecified Qualified Code(s): E78.5 - Hyperlipidemia, unspecified (5) Benign hypertension Status: Chronic (6) Urinary tract infection Status: Acute Reason for Consult Date of Consultation: 11/26/18 History of Present Illness: The patient is a 72 year old white female who presents for evaluation of atrial fibrillation superimposed upon a history of underlying mitral valve insufficiency, 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 The patient has been followed as an outpatient. She has undergone previous evaluation and care of her atrial dysrhythmia in the past with EPS/RFA. Based upon her last outpatient cardiovascular visit on 01-05-18 she appeared to be remaining in a regular rhythm at that time. She continue with plans for future outpatient cardiovascular follow-up. In the meantime she now presents with the acute noncardiac issue with respect to findings of a UTI. During this time she has been found to be in atrial fibrillation. She does not seem to sense her underlying atrial fibrillation at this time. Thus she does not know how long this is been present. She has denied ongoing chest discomfort or symptoms of acute orthopnea or PND. There is been no ongoing acute peripheral pitting edema. She has had no near syncope or syncope. She has undergone noninvasive evaluation. Her troponin I level demonstrated a negative report. Her cardiac rhythm was atrial fibrillation. She has continued medical therapy which has included rate control therapy. [] Past Medical History Allergies/Adverse Reactions: Allergies Penicillins Allergy (Verified 10/28/18 11:00) Hives atorvastatin [From Lipitor] Adverse Reaction (Severe, Verified 10/28/18 11:00) Elevated LFT Home Medications: Ambulatory Orders Medication Instructions Recorded Aspirin E.C. [Ecotrin] 81 mg PO DAILY@0800 tab 07/27/15 Esomeprazole Mag Trihydrate 20 mg PO DAILY 08/14/16 [Nexium] Ranitidine [Zantac] 300 mg PO QHS 08/14/16 Oxycodone HCl/Acetaminophen 1 tab PO BID 05/01/17 [Percocet 5-325] etanercept 50 mg/mL (1 mL) 50 mg SC QWEEK 01/05/18 subcutaneous syringe amlodipine 2.5 mg tablet 2.5 mg PO DAILY #90 tab 02/02/18 metoprolol tartrate 50 mg tablet 50 mg PO BID #180 tab 02/02/18 allopurinol 100 mg tablet 200 mg PO DAILY 10/28/18 prednisone 5 mg tablet 5 mg PO DAILY 10/28/18 Ezetimibe 10 mg PO QHS 11/25/18 Oxybutynin Chloride [Oxybutynin 15 mg PO DAILY 11/25/18 Chloride ER] Past Medical History (Chronic Problems): Chronic Problems (Last Updated 10/28/18 @ 11:02 by Shania Pinon) Old myocardial infarction (Chronic) Nonrheumatic mitral (valve) insufficiency (Chronic) Recurrent pancreatitis (Chronic) Hyperlipidemia (Chronic) Familial combined hyperlipidemia (Chronic) Morbid obesity with BMI of 40.0-44.9, adult (Chronic) Benign hypertension (Chronic) Surgical History: appendectomy, cataract, cholecystectomy, total knee arthroplasty - left, - - Foot surgery, carpal tunnel surgery Psychiatric History: No pertinent psych hx 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: No 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 GRINDER history - *Family History Maternal Family History: Family History (Last Reviewed 10/28/18 @ 11:02 by Shania Pinon) Sister Hypertension Other Arthritis Cancer Diabetes History Items: Renal Disease - age 70 Paternal Family History: Family History (Last Reviewed 10/28/18 @ 11:02 by Shania Pinon) Sister Hypertension Other Arthritis Cancer Diabetes History Items: - - age 45 cirrhosis Lives: Alone Smoking Status: Never smoker Tobacco Use: Non-smoker Alcohol: None Drugs: None Review of Systems - Review of Systems Cardiovascular: Denies: Chest Discomfort, Shortness of Breath, Orthopnea, PND, Peripheral Edema, Palpitations, Lightheadedness, Dizziness, Near Syncope, Syncope Gastrointestinal: Denies: Hematemesis, Hematochezia, Melena Genitourinary: Denies: Hematuria Skin: Denies: Rash Subjectve: This is a 72-year-old white female who appears to be resting comfortably at the moment in no acute distress. Objective: Vital Signs Temp Pulse Resp BP Pulse Ox 97.4 F L 87 18 147/84 H 100 11/26/18 09:21 11/26/18 09:51 11/26/18 09:21 11/26/18 09:51 11/26/18 09:21 Oxygen Flow Rate (L/min) 96 Oxygen Delivery Method Room Air Weight: 233 lb 14.567 oz Body Mass Index (BMI) 41.4 Intake and Output for Last 24 Hours 11/24/18 11/25/18 11/26/18 23:59 23:59 23:59 Intake Total 250 / 250 2326.66 / 2326.66 Output Total 400 / 400 400 / 400 Balance -150 / -150 1926.66 / 1926.66 General: Awake, Alert, Oriented x 3, Cooperative, No Acute Distress, Obese HEENT: Atraumatic, Normocephalic, PERRL, EOMI, Sclera Non Icteric Oral: Moist Mucosa Neck: Supple, Good ROM, No JVD Lungs: Clear to auscultation Cardiovascular: Irregular Rhythm, Normal S1, Normal S2 Murmur Murmur: Grade 2/6, Soft, Mid Systolic, [place] Vascular: No Carotid Bruits Abdomen: Bowel Sounds Present, Soft, Non Tender Extremities: No edema Neurological: No Focal Motor or Sensory Deficit Psych/Mental Status: Appropriate 11/25/18 13:46: WBC 19.4 H, RBC 4.38, Hgb 12.7, Hct 38.7, MCV 88.4, MCH 29.0, MCHC 32.8, Plt Count 153, MPV 10.3, Immature Gran % (Auto) 0.900, Neut % (Auto) 84.2 H, Lymph % (Auto) 3.7 L, [place] % (Auto) 10.6 H, Eos % (Auto) 0.3, Baso % (Auto) 0.3, Absolute Neuts (auto) 16.3 H, Nucleated RBC % 0 11/25/18 13:46: Sodium 140, Potassium 4.0, Chloride 106, Carbon Dioxide 22.0, Anion Gap 12, BUN 28 H, Creatinine 1.26 H, Est GFR (MDRD) Af Amer 53 L, Est GFR (MDRD) Non-Af 44 L, BUN/Creatinine Ratio 22.2 H, Glucose 159 H, Calcium 9.1, Troponin I < 0.015 11/25/18 14:35: Lactic Acid 1.9 11/25/18 15:05: Urine Color Yellow, Urine Clarity Cloudy, Urine pH 5.0, Ur Specific [place] 1.015, Urine Protein 100 H, Urine Glucose (UA) Normal, Urine Ketones Negative, Urine Occult Blood 150 H, Urine Nitrite Negative, Urine Bilirubin Negative, Urine Urobilinogen Normal, Ur Leukocyte Esterase 500 H, Urine RBC 0-5 SEEN, Urine WBC >100 SEEN 11/26/18 07:40: WBC 11.7 H, RBC 4.10 L, Hgb 11.8 L, Hct 37.1, MCV 90.5, MCH 28.8, MCHC 31.8 L, Plt Count 136 L, MPV 10.2, Immature Gran % (Auto) 0.500, Neut % (Auto) 81.8 H, Lymph % (Auto) 4.6 L, [place] % (Auto) 12.4 H, Eos % (Auto) 0.5, Baso % (Auto) 0.2, Absolute Neuts (auto) 9.6 H, Nucleated RBC % 0 11/26/18 07:40: Sodium 137, Potassium 4.2, Chloride 108 H, Carbon Dioxide 24.0, Anion Gap 5, BUN 21 H, Creatinine 1.01, Est GFR (MDRD) Af Amer 69, Est GFR (MDRD) Non-Af 57 L, BUN/Creatinine Ratio 20.8 H, Glucose 126 H, Calcium 8.6 Rhythm: Atrial fibrillation EKG: Atrial fibrillation; PVCs; consider voltage criteria for LVH; nonspecific ST segment abnormality; cannot exclude inferior IL of indeterminate age Transthoracic echocardiogram: 08/13/2012 Summary Normal LV size. Left ventricular systolic function is normal. The estimated ejection fraction is 65 %. Transmitral and pulmonary venous doppler flow suggestive of impaired relaxation of left ventricle Mild (1+) tricuspid valve insufficiency. Transthoracic echocardiogram: 11-26-18 Interpretation Summary The study was technically difficult. Contrast injection was performed. Left ventricular systolic function is normal. The estimated ejection fraction is 70 %. The left atrium is severely enlarged. There is moderate mitral annular calcification. Extension of the mitral annular calcification onto the posterior mitral valve leaflet peer Moderate focal mitral valve calcification of the anterior leaflet. Mild mitral valve prolapse. Moderate (2+) mitral valve insufficiency. Mild tricuspid valve insufficiency. Trivial aortic valve insufficiency. Mild (1+) pulmonic valve insufficiency. Calcified aortic root. Right ventricular systolic pressure estimated to be 42 mmHg. Unable to assess diastolic dysfunction. Stress test: 04/17/2005 TECHNIQUE The patient was injected with 14.2 mCi of Tc99m Cardiolite and resting SPECT images were acquired in the horizontal long, vertical long, and short axes views. The patient subsequently underwent stress using a Donald protocol and exercised 5 minutes and 1 second, reaching a peak heart rate of 144, which is 90% of maximum predicted. At peak stress, the patient was injected with 39 mCi of Tc99m Cardiolite and stress SPECT images were acquired in the horizontal long, vertical long, and short axes views. INTERPRETATION Resting images demonstrate a small subtle decrease in apical activity which appears to improve with stress with ?brightening? at end systole by gated SPECT and normal wall motion consistent with apical thinning. The remainder of the left ventricle appears to be well perfused both at rest and with stress. There are no significant fixed defects to suggest infarct. There are no reversible defects developing with stress to suggest inducible ischemia. Estimated ejection fraction by gated SPECT imaging was 78% with normal wall motion and brightening in all segments. CONCLUSION 1. Small subtle decrease in apical activity at rest improving with stress consistent with apical thinning. 2. No fixed defects to suggest infarct. Cardiac cath: 07/13/2008 Conclusion 1. Normal left ventricular systolic function, ejection traction 65%. 2 Mild mitral annular calcification 1. Moderate mitral valve prolapse with mild insufficiency. 4. Angiographically normal coronaries. Electrophysiology study: 11/02/2008: Baseline persistent atrial fibrillation with controlled ventricular response with post RFA sinus rhythm with normal intracardiac intervals with no inducible PSVT, VT, or VF Holter monitor: 08/16/2012: Conclusion: Demonstrating sinus rhythm with periods of atrial tachyarrhythmia Chest x-ray: Question of increased pulmonary vascularity: Please see official report Assessment/Plan 1. Atrial fibrillation The patient has undergone previous evaluation with EPS/RFA. She has been doing well. She presents now with an acute noncardiac issue. She is found to be back in atrial fibrillation. The duration of her atrial fibrillation is unknown. At the moment she will need to continue rate control therapy with adjustment as needed. Depending upon her clinical course, if there is no obvious contraindication, she will need to be restarted on anticoagulant therapy. Over time she will need to be considered as to whether she is a candidate for a future synchronized biphasic DC cardioversion to regain sinus rhythm versus she may need repeat EP evaluation for another EPS/RFA. 2. Mitral valve regurgitation She does have mitral valve regurgitation. This may be a contributing factor to her medical issues including her atrial fibrillation. She will need to continue to be followed by history, exam, and diagnostic studies as deemed appropriate. In the meantime she will continue medical management to assist with her underlying cardiovascular status as best as possible. 3. IL The patient has a history of a previous IL. She is undergone noninvasive and invasive evaluation in the past. On on her invasive results as noted above it was thought to be a type II event. At the moment she appears to be without acute symptoms. She has had troponin I level which was negative. She will continue to be followed. 4. Hyperlipidemia She will continue risk factor modification medical therapy as deemed appropriate. 5. Hypertension Her blood pressure will need to be followed. Her medicines may need to be adjusted to assist with her cardiovascular issues. 6. UTI She will continue evaluation care per internal medicine. Comment: The patient's case has been discussed with patient and the [facility] staff. This note was generated using a voice recognition system and there may be incorrect words, spelling or punctuation that were not noted when reviewing the office note prior to saving.
--- NOTE | 2018-11-26 13:03 | PCM.PROGNOTE ---
<Suresh Salgado - Last Filed: 11/26/18 13:03> Patient Problems: Active and Suspected Problems (Last Updated 10/28/18 @ 11:02 by Shania Pinon) Urinary tract infection (Acute) Leukocytosis (Acute) Episodic confusion (Acute) Sepsis (Acute) Fall at home (Acute) Malaise (Acute) Chills (Acute) Subjective: No further confusion. No weakness. No CP/palp. No dizziness/LH. She has had ongoing difficulty with frequent urination for which she sees a urologist as an o/p. She denies dysuria. No fever/chills. - Physical Exam General: Alert, Oriented x3, Cooperative HEENT: Atraumatic, PERRLA, EOMI, Normocephalic Neck: Supple, No JVD, Negative Carotid Bruits Lungs: Clear to auscultation, Normal air movement Cardiovascular: No murmurs, Irregular Rate, Tachycardic Abdomen: Bowel Sounds Present, Soft, Non Tender Extremities: No edema, Capillary Refill Less than 3 Seconds Skin: No rashes, No breakdown Musculoskeletal: No Tenderness to Palpation of Joints or Extremities Neurological: Cranial nerves II-XII grossly intact Psych/Mental Status: Normal Affect, Appropriate, Alert and oriented to time, place, person, mood and affect Vital Signs Temp Pulse Resp BP Pulse Ox 97.4 F L 87 18 147/84 H 100 11/26/18 09:21 11/26/18 09:51 11/26/18 09:21 11/26/18 09:51 11/26/18 09:21 Oxygen Flow Rate (L/min) 96 Oxygen Delivery Method Room Air Weight: 233 lb 14.567 oz Body Mass Index (BMI) 41.4 Intake and Output for Last 24 Hours 11/24/18 11/25/18 11/26/18 23:59 23:59 23:59 Intake Total 250 / 250 2326.66 / 2326.66 Output Total 400 / 400 400 / 400 Balance -150 / -150 1926.66 / 1926.66 Microbiology Past 72 Hours 11/25/18 15:05 Urine Culture - Preliminary Urine Catheter - Catheter Presumptive E. coli 11/25/18 16:50 Blood Culture - Preliminary Blood Culture (Wb) - Left Forearm 11/25/18 14:35 Blood Culture - Preliminary Blood Culture (Wb) - Anticubital Left Laboratory Tests Past 24 Hrs 11/25/18 11/25/18 11/25/18 13:46 13:46 14:35 WBC 19.4 H RBC 4.38 Hgb 12.7 Hct 38.7 MCV 88.4 MCH 29.0 MCHC 32.8 RDW Std Deviation 52.3 H RDW Coeff of Patel 15.9 H Plt Count 153 MPV 10.3 Immature Gran % (Auto) 0.900 Neut % (Auto) 84.2 H Lymph % (Auto) 3.7 L [place] % (Auto) 10.6 H Eos % (Auto) 0.3 Baso % (Auto) 0.3 Absolute Neuts (auto) 16.3 H Absolute Lymphs (auto) 0.71 L Nucleated RBC % 0 Differential Comment COMMENT Diff Path Review Reviewed Sodium 140 Potassium 4.0 Chloride 106 Carbon Dioxide 22.0 Anion Gap 12 BUN 28 H Creatinine 1.26 H Estim Creat Clear Calc 32.40 Est GFR (MDRD) Af Amer 53 L Est GFR (MDRD) Non-Af 44 L BUN/Creatinine Ratio 22.2 H Glucose 159 H Lactic Acid 1.9 Calcium 9.1 Troponin I < 0.015 Urine Color Urine Clarity Urine pH Ur Specific [place] Urine Protein Urine Glucose (UA) Urine Ketones Urine Occult Blood Urine Nitrite Urine Bilirubin Urine Urobilinogen Ur Leukocyte Esterase Urine RBC Urine WBC Ur Squamous Epith Cells Amorphous Sediment Urine Bacteria Urine Mucus 11/25/18 11/26/18 11/26/18 15:05 07:40 07:40 WBC 11.7 H RBC 4.10 L Hgb 11.8 L Hct 37.1 MCV 90.5 MCH 28.8 MCHC 31.8 L RDW Std Deviation 54.0 H RDW Coeff of Patel 16.1 H Plt Count 136 L MPV 10.2 Immature Gran % (Auto) 0.500 Neut % (Auto) 81.8 H Lymph % (Auto) 4.6 L [place] % (Auto) 12.4 H Eos % (Auto) 0.5 Baso % (Auto) 0.2 Absolute Neuts (auto) 9.6 H Absolute Lymphs (auto) 0.54 L Nucleated RBC % 0 Differential Comment COMMENT Diff Path Review Sodium 137 Potassium 4.2 Chloride 108 H Carbon Dioxide 24.0 Anion Gap 5 BUN 21 H Creatinine 1.01 Estim Creat Clear Calc 40.42 Est GFR (MDRD) Af Amer 69 Est GFR (MDRD) Non-Af 57 L BUN/Creatinine Ratio 20.8 H Glucose 126 H Lactic Acid Calcium 8.6 Troponin I Urine Color Yellow Urine Clarity Cloudy Urine pH 5.0 Ur Specific [place] 1.015 Urine Protein 100 H Urine Glucose (UA) Normal Urine Ketones Negative Urine Occult Blood 150 H Urine Nitrite Negative Urine Bilirubin Negative Urine Urobilinogen Normal Ur Leukocyte Esterase 500 H Urine RBC 0-5 SEEN Urine WBC >100 SEEN Ur Squamous Epith Cells 0-5 SEEN Amorphous Sediment 1+ Urine Bacteria 4+ Urine Mucus 0 SEEN Medical Necessity - Tobacco Use Smoking Status: Never smoker Tobacco Use: Non-smoker Assessment/Plan All Active Problems (Last Updated 10/28/18 @ 11:02 by Shania Pinon) Urinary tract infection (Acute) Leukocytosis (Acute) Episodic confusion (Acute) Sepsis (Acute) Fall at home (Acute) Malaise (Acute) Chills (Acute) Acute bronchitis (Acute) Paroxysmal atrial fibrillation (Acute) Nonrheumatic mitral (valve) prolapse (Acute) Screening for intestinal cancer (Acute) 1. Acute sepsis 2/2 acute cystitis - WBC improved. Cx pending. 2. Acute metabolic encephalopathy 2/2 above - resolved. 3. PAfib - still mildly tachycardic. Cardiology is following, considering restarting blood thinners and possible cardioversion. Metoprolol. 4. Generalized debility - PTOT 5. Morbid obesity - brazer controlled atmospheric furnace eval 6. HTN - stable 7. Chronic pain 2/2 RA - pt of Dr. Resendiz, on chronic oxycodone. Prednisone DVT ppx: heparin DC planning: PTOT. Likely home pending further cardiac workup. This patient was seen by Suresh Salgado PA-C under the supervision of Dr. Lozano <Rommel Lozano - Last Filed: 11/26/18 17:05> - Physical Exam Vital Signs Temp Pulse Resp BP Pulse Ox 97.3 F L 107 H 16 119/82 H 93 11/26/18 15:20 11/26/18 15:20 11/26/18 15:20 11/26/18 15:20 11/26/18 15:20 Oxygen Flow Rate (L/min) 96 Oxygen Delivery Method Room Air Weight: 233 lb 14.567 oz Body Mass Index (BMI) 41.4 Intake and Output for Last 24 Hours 11/24/18 11/25/18 11/26/18 23:59 23:59 23:59 Intake Total 250 / 250 2663.33 / 2663.33 Output Total 400 / 400 400 / 400 Balance -150 / -150 2263.33 / 2263.33 Microbiology Past 72 Hours 11/25/18 15:05 Urine Culture - Preliminary Urine Catheter - Catheter Presumptive E. coli 11/25/18 16:50 Blood Culture - Preliminary Blood Culture (Wb) - Left Forearm 11/25/18 14:35 Blood Culture - Preliminary Blood Culture (Wb) - Anticubital Left Laboratory Tests Past 24 Hrs 11/25/18 11/25/18 11/26/18 13:46 14:35 07:40 WBC 11.7 H RBC 4.10 L Hgb 11.8 L Hct 37.1 MCV 90.5 MCH 28.8 MCHC 31.8 L RDW Std Deviation 54.0 H RDW Coeff of Patel 16.1 H Plt Count 136 L MPV 10.2 Immature Gran % (Auto) 0.500 Neut % (Auto) 81.8 H Lymph % (Auto) 4.6 L [place] % (Auto) 12.4 H Eos % (Auto) 0.5 Baso % (Auto) 0.2 Absolute Neuts (auto) 9.6 H Absolute Lymphs (auto) 0.54 L Nucleated RBC % 0 Differential Comment COMMENT Diff Path Review Reviewed Sodium Potassium Chloride Carbon Dioxide Anion Gap BUN Creatinine Estim Creat Clear Calc Est GFR (MDRD) Af Amer Est GFR (MDRD) Non-Af BUN/Creatinine Ratio Glucose Lactic Acid 1.9 Calcium 11/26/18 07:40 WBC RBC Hgb Hct MCV MCH MCHC RDW Std Deviation RDW Coeff of Patel Plt Count MPV Immature Gran % (Auto) Neut % (Auto) Lymph % (Auto) [place] % (Auto) Eos % (Auto) Baso % (Auto) Absolute Neuts (auto) Absolute Lymphs (auto) Nucleated RBC % Differential Comment Diff Path Review Sodium 137 Potassium 4.2 Chloride 108 H Carbon Dioxide 24.0 Anion Gap 5 BUN 21 H Creatinine 1.01 Estim Creat Clear Calc 40.42 Est GFR (MDRD) Af Amer 69 Est GFR (MDRD) Non-Af 57 L BUN/Creatinine Ratio 20.8 H Glucose 126 H Lactic Acid Calcium 8.6 Code Visit Addendum: Dr. Lozano I personally examined the patient and reviewed the chart. I agree with the above. 72-year-old female who presents with increasing episodes of unsteadiness and falls as well as chills. She was found to have a UA consistent with a UTI and a urine culture is currently pending with presumptive E. coli. She is currently on antibiotic therapy and feeling much better however she did go back into A. fib after having an ablation. Cardiology was consulted and is considering anticoagulation and eventual cardioversion. Plan will be for discharge home tomorrow once the sensitivities result. Inpatient E&M: 88373 Subs Hosp L2
--- NOTE | 2018-11-26 14:27 | CHAPLAIN ---
Type of Pastoral Visit _x__ Initial Visit ___ Follow-up Visit ___ On-call Visit ___ General Patient Visit ___ Spiritual Assessment ___ Family Conference ___ Bereavement ___ Rapid Response ___ Code Blue ___ Other (describe below) Pastoral Care Referral From _x__ Patient ___ Family ___ Nurse ___ Physician ___ Director Recreation Center ___ Manager Report ___ Other (describe below) Sacrament/Intervention _x__ Active listening ___ Anointing ___ Anglican ___ Bereavement ___ Communion _x__ Kristan exploration ___ _x__ Life review _x__ Prayer ___ Reconciliation ___ Sacrament of Sick _x__ Supportive presence ___ Wedding ___ Other (describe below) Pastoral Comments
[2018-11-26] MEDS: Famotidine 20 MG Tablet PO (21:16)
[2018-11-26] MEDS: APIXABAN 5 MG TABLET PO (21:16)
[2018-11-26] MEDS: Metoprolol Tartrate 100 MG Tablet PO (21:16)
[2018-11-26] MEDS: Ezetimibe 10 MG Tablet PO (21:17)
[2018-11-27] VITALS (12 sets, daily range): BP systolic 115–150; BP diastolic 63–90; PULSE 72–127; RESP 17–18; TEMP 36.5–36.7; O2SAT 92–98
[2018-11-27] MEDS: 0.9% Normal Saline 1,000 ML 100 ML IV ×3 (00:05→19:13)
[2018-11-27 06:20] LABS: Absolute Lymphocyte Count 0.68 X10^3/uL (0.83-4.51); Absolute Neutrophil Count 9.3 X10^3/uL (2.0-7.7); Basophil# 0.01 X10^3/uL; Basophil% 0.1 % (0-1); Eosinophil# 0.01 X10^3/uL; Eosinophils% 0.1 % (0-5); Hematocrit 34.5 % (37-47); Hemoglobin 10.9 g/dL (12.0-15.0); Lymphocyte # 0.68 X10^3/ul (4.0); Lymphocyte % 5.8 % (19-41); Mean Corp Hgb Conc 31.6 g/dL (32-36); Mean Corpuscular Hgb 28.3 pg (27.0-32.0); Mean Corpuscular Volume 89.6 fL (81-99); Mean Platelet Vol. 11.1 fl (6.2-12.0); Monocyte# 1.65 X10^3/uL; Monocyte% 14.1 % (0-10); NRBC Flagged by Analyzer 0 % (0-5); Neutrophil # 9.25 X10^3/uL (2.7-7.7); Neutrophil % 79.3 % (47-70); POSITIVE DIFFERENTIAL YES; Platelet Count 136 K/mm3 (150-450); RBC Distribution Width CV 16.2 % (11.6-14.6); RBC Distribution Width SD 53.2 fl (35.1-43.9); Red Blood Count 3.85 M/mm3 (4.2-5.4); White Blood Count 11.7 K/mm3 (4.4-11.0)
[2018-11-27 06:32] LABS: Differential Indicated SCAN CRITERIA MET
[2018-11-27 06:50] LABS: Differential Comment SCANNED
--- NOTE | 2018-11-27 09:02 | PCM.PN.CARD ---
Subjectve: The patient is awake and alert. She denies any ongoing chest discomfort or difficulty breathing. She states she may be able to sense her rapid rates. She states she now believes she may have been in atrial fib for quite some time. Otherwise she states she is feeling better overall. Objective: Vital Signs Temp Pulse Resp BP Pulse Ox 98.0 F 124 H 18 117/84 H 94 11/27/18 08:52 11/27/18 08:52 11/27/18 08:52 11/27/18 08:52 11/27/18 08:52 Oxygen Flow Rate (L/min) 96 Oxygen Delivery Method Room Air Weight: 233 lb 14.567 oz Body Mass Index (BMI) 41.4 Intake and Output for Last 24 Hours 11/25/18 11/26/18 11/27/18 23:59 23:59 23:59 Intake Total 250 / 250 3483.33 / 3483.33 1120 / 1120 Output Total 400 / 400 1400 / 1400 300 / 300 Balance -150 / -150 2083.33 / 2083.33 820 / 820 General: Awake, Alert, Oriented x 3, Cooperative, No Acute Distress HEENT: Atraumatic, Normocephalic, PERRL, EOMI, Sclera Non Icteric Oral: Moist Mucosa Neck: Supple, Good ROM, No JVD Lungs: Clear to auscultation Cardiovascular: Irregular Rhythm, Normal S1, Normal S2 Murmur Murmur: Grade 2/6, Soft, Mid Systolic, [place] Abdomen: Bowel Sounds Present, Soft, Non Tender Extremities: No edema Neurological: No Focal Motor or Sensory Deficit Psych/Mental Status: Appropriate 11/27/18 05:17: WBC 11.7 H, RBC 3.85 L, Hgb 10.9 L, Hct 34.5 L, MCV 89.6, MCH 28.3, MCHC 31.6 L, Plt Count 136 L, MPV 11.1, Immature Gran % (Auto) 0.600, Neut % (Auto) 79.3 H, Lymph % (Auto) 5.8 L, [place] % (Auto) 14.1 H, Eos % (Auto) 0.1, Baso % (Auto) 0.1, Absolute Neuts (auto) 9.3 H, Nucleated RBC % 0 Rhythm: Atrial fibrillation with episodes of rapid ventricular response Medical Necessity - Tobacco Use Smoking Status: Never smoker Tobacco Use: Non-smoker Assessment/Plan 1. Atrial fibrillation The patient has undergone previous evaluation with EPS/RFA. She has been doing well. She presents now with an acute noncardiac issue. She is found to be back in atrial fibrillation. The duration of her atrial fibrillation is unknown. At the moment she will need to continue rate control therapy with adjustment as needed. As her rate has remained elevated she may need dual rate limiting medication and attempt to bring her rate under better control. Thus she will continue beta-lenora therapy and have the addition of calcium channel antagonist therapy. Over time she can be considered, when she has adequate anticoagulation therapy, for synchronized biphasic DC cardioversion. She may need future EP evaluation for repeat EPS/RFA. 2. Mitral valve regurgitation She does have mitral valve regurgitation. This may be a contributing factor to her medical issues including her atrial fibrillation. She will need to continue to be followed by history, exam, and diagnostic studies as deemed appropriate. In the meantime she will continue medical management to assist with her underlying cardiovascular status as best as possible. 3. PR The patient has a history of a previous PR. She is undergone noninvasive and invasive evaluation in the past. On on her invasive results as noted above it was thought to be a type II event. At the moment she appears to be without acute symptoms. She has had troponin I level which was negative. She will continue to be followed. 4. Hyperlipidemia She will continue risk factor modification medical therapy as deemed appropriate. 5. Hypertension Her blood pressure will need to be followed. Her medicines may need to be adjusted to assist with her cardiovascular issues. 6. UTI She will continue evaluation care per internal medicine. Comment: The patient's case has been discussed with patient. This note was generated using a voice recognition system and there may be incorrect words, spelling or punctuation that were not noted when reviewing the office note prior to saving.
[2018-11-27] MEDS: Aspirin E.C. 81 MG Tablet PO (09:07)
[2018-11-27] MEDS: Allopurinol 100 MG Tablet 200 MG PO (09:07)
[2018-11-27] MEDS: Tolterodine Tartrate 4 MG CAP.SA PO (09:07)
[2018-11-27] MEDS: Pantoprazole Sodium 20 MG Tablet PO (09:08)
[2018-11-27] MEDS: APIXABAN 5 MG TABLET PO ×2 (09:08→21:45)
[2018-11-27] MEDS: Metoprolol Tartrate 100 MG Tablet PO ×2 (09:08→21:44)
[2018-11-27] MEDS: predniSONE 5 MG Tablet PO (09:09)
[2018-11-27] MEDS: dilTIAZem CD 120 MG Capsule PO ×2 (10:56→21:44)
[2018-11-27] MEDS: Cephalexin 500 MG Capsule PO ×3 (10:59→23:03)
[2018-11-27 12:35] LABS: Pathologist Review Reviewed
--- NOTE | 2018-11-27 14:48 | PCM.PROGNOTE ---
<Suresh Salgado - Last Filed: 11/27/18 14:48> Patient Problems: Active and Suspected Problems (Last Updated 10/28/18 @ 11:02 by Shania Pinon) Urinary tract infection (Acute) Leukocytosis (Acute) Episodic confusion (Acute) Sepsis (Acute) Fall at home (Acute) Malaise (Acute) Chills (Acute) Subjective: Pt very upset this AM and tearful as she wanted to go home today. She denies dysuria, fevers/chills, denies palpitations, LH/Dizziness, CP, pressure tightness. Heart rate is still 120s-130s this AM. - Physical Exam General: Alert, Oriented x3, Cooperative HEENT: Atraumatic, PERRLA, EOMI, Normocephalic Neck: Supple, No JVD, Negative Carotid Bruits Lungs: Clear to auscultation, Normal air movement Cardiovascular: No murmurs, Irregular Rate, Tachycardic Abdomen: Bowel Sounds Present, Soft, Non Tender Extremities: No edema, Capillary Refill Less than 3 Seconds Skin: No rashes, No breakdown Musculoskeletal: No Tenderness to Palpation of Joints or Extremities Neurological: Cranial nerves II-XII grossly intact Psych/Mental Status: Agitated, Alert and oriented to time, place, person, mood and affect Vital Signs Temp Pulse Resp BP Pulse Ox 98.0 F 124 H 18 138/90 H 94 11/27/18 08:52 11/27/18 11:49 11/27/18 08:52 11/27/18 10:51 11/27/18 08:52 Oxygen Flow Rate (L/min) 96 Oxygen Delivery Method Room Air Weight: 233 lb 14.567 oz Body Mass Index (BMI) 41.4 Intake and Output for Last 24 Hours 11/25/18 11/26/18 11/27/18 23:59 23:59 23:59 Intake Total 250 / 250 3483.33 / 3483.33 3058.33 / 3058.33 Output Total 400 / 400 1400 / 1400 1000 / 1000 Balance -150 / -150 2083.33 / 2083.33 2058.33 / 2058.33 Microbiology Past 72 Hours 11/25/18 15:05 Urine Culture - Final Urine Catheter - Catheter Presumptive E. coli 11/25/18 16:50 Blood Culture - Preliminary Blood Culture (Wb) - Left Forearm 11/25/18 14:35 Blood Culture - Preliminary Blood Culture (Wb) - Anticubital Left Laboratory Tests Past 24 Hrs 11/27/18 05:17 WBC 11.7 H RBC 3.85 L Hgb 10.9 L Hct 34.5 L MCV 89.6 MCH 28.3 MCHC 31.6 L RDW Std Deviation 53.2 H RDW Coeff of Patel 16.2 H Plt Count 136 L MPV 11.1 Immature Gran % (Auto) 0.600 Neut % (Auto) 79.3 H Lymph % (Auto) 5.8 L [place] % (Auto) 14.1 H Eos % (Auto) 0.1 Baso % (Auto) 0.1 Absolute Neuts (auto) 9.3 H Absolute Lymphs (auto) 0.68 L Nucleated RBC % 0 Differential Comment SCANNED Diff Path Review Reviewed Medical Necessity - Tobacco Use Smoking Status: Never smoker Tobacco Use: Non-smoker Assessment/Plan All Active Problems (Last Updated 10/28/18 @ 11:02 by Shania Pinon) Urinary tract infection (Acute) Leukocytosis (Acute) Episodic confusion (Acute) Sepsis (Acute) Fall at home (Acute) Malaise (Acute) Chills (Acute) Acute bronchitis (Acute) Paroxysmal atrial fibrillation (Acute) Nonrheumatic mitral (valve) prolapse (Acute) Screening for intestinal cancer (Acute) 1. Acute sepsis 2/2 acute cystitis - Improved. E coli, sensitivities back, changed to oral keflex. 2. Acute metabolic encephalopathy 2/2 above present on admission - resolved. 3. PAfib - rate 120s to 130s. Eliquis. Metoprolol and Cardizem BID. Cardiology following. Echo on chart. 4. Generalized debility - PTOT 5. Morbid obesity - bundle helper eval 6. HTN - stable 7. Chronic pain 2/2 RA - pt of Dr. Resendiz, on chronic oxycodone. Chronic Prednisone. DVT ppx: heparin DC planning: PTOT. Likely home pending further cardiac workup. This patient was seen by Suresh Salgado PA-C under the supervision of Dr. Lozano <Rommel Lozano - Last Filed: 11/27/18 18:04> - Physical Exam Vital Signs Temp Pulse Resp BP Pulse Ox 97.8 F 90 17 145/73 H 98 11/27/18 15:44 11/27/18 15:44 11/27/18 15:44 11/27/18 15:44 11/27/18 15:44 Oxygen Flow Rate (L/min) 96 Oxygen Delivery Method Room Air Weight: 233 lb 14.567 oz Body Mass Index (BMI) 41.4 Intake and Output for Last 24 Hours 11/25/18 11/26/18 11/27/18 23:59 23:59 23:59 Intake Total 250 / 250 3483.33 / 3483.33 3058.33 / 3058.33 Output Total 400 / 400 1400 / 1400 1000 / 1000 Balance -150 / -150 2083.33 / 2083.33 2058.33 / 2058.33 Microbiology Past 72 Hours 11/25/18 15:05 Urine Culture - Final Urine Catheter - Catheter Presumptive E. coli 11/25/18 16:50 Blood Culture - Preliminary Blood Culture (Wb) - Left Forearm 11/25/18 14:35 Blood Culture - Preliminary Blood Culture (Wb) - Anticubital Left Laboratory Tests Past 24 Hrs 11/27/18 05:17 WBC 11.7 H RBC 3.85 L Hgb 10.9 L Hct 34.5 L MCV 89.6 MCH 28.3 MCHC 31.6 L RDW Std Deviation 53.2 H RDW Coeff of Patel 16.2 H Plt Count 136 L MPV 11.1 Immature Gran % (Auto) 0.600 Neut % (Auto) 79.3 H Lymph % (Auto) 5.8 L [place] % (Auto) 14.1 H Eos % (Auto) 0.1 Baso % (Auto) 0.1 Absolute Neuts (auto) 9.3 H Absolute Lymphs (auto) 0.68 L Nucleated RBC % 0 Differential Comment SCANNED Diff Path Review Reviewed Code Visit Addendum: Dr. Lozano I personally examined the patient and reviewed the chart. I agree with the above. 72-year-old female presents with increasing episodes of unsteadiness and falls as well as chills. She was found to have a UA consistent with UTI and a urine culture with E. coli that is pansensitive. She is feeling much better however she was found to be in A. fib with RVR when she came in and she was started and increased on rate control. She is on metoprolol 100 mg p.o. twice daily as well as Cardizem 120 p.o. twice daily. We will continue to monitor her heart rate and her blood pressure, and if she does go beneath 120 bpm, can consider discharging her. She was restarted on her Eliquis by cardiology. Inpatient E&M: 39230 Subs Hosp L2
[2018-11-27] MEDS: oxyCODONE 5 MG Tablet 10 MG PO (21:44)
[2018-11-27] MEDS: Ezetimibe 10 MG Tablet PO (21:44)
[2018-11-27] MEDS: Famotidine 20 MG Tablet PO (21:45)
[2018-11-28 03:00] VITALS: BP 132/84; PULSE 93; RESP 16; TEMP 37.1; O2SAT 92
[2018-11-28 03:03] VITALS: PULSE 79
[2018-11-28] MEDS: 0.9% Normal Saline 1,000 ML 100 ML IV (04:39)
[2018-11-28] MEDS: Cephalexin 500 MG Capsule PO ×2 (05:32→11:50)
[2018-11-28 07:01] VITALS: PULSE 83
[2018-11-28 08:03] VITALS: PULSE 97
[2018-11-28 08:33] VITALS: BP 161/84; PULSE 103; RESP 18; TEMP 36.8; O2SAT 97
[2018-11-28] MEDS: Allopurinol 100 MG Tablet 200 MG PO (09:06)
[2018-11-28 09:07] VITALS: PULSE 101
[2018-11-28] MEDS: predniSONE 5 MG Tablet PO (09:07)
[2018-11-28] MEDS: APIXABAN 5 MG TABLET PO (09:07)
[2018-11-28] MEDS: dilTIAZem CD 120 MG Capsule PO (09:07)
[2018-11-28] MEDS: Metoprolol Tartrate 100 MG Tablet PO (09:07)
[2018-11-28] MEDS: Tolterodine Tartrate 4 MG CAP.SA PO (09:07)
[2018-11-28] MEDS: Pantoprazole Sodium 20 MG Tablet PO (09:07)
[2018-11-28] MEDS: Aspirin E.C. 81 MG Tablet PO (09:07)
[2018-11-28] MEDS: oxyCODONE 5 MG Tablet 10 MG PO (09:13)
--- NOTE | 2018-11-28 09:18 | PN.CARD_ITS ---
Subjectve: Patient doing fairly well. Still remains in atrial fibrillation mostly with controlled ventricular response unless she ambulates and then her heart rate increases. Currently on dual beta-lenora and calcium channel lenora therapy. Objective: Vital Signs Temp Pulse Resp BP Pulse Ox 98.2 F 101 H 18 161/84 H 97 11/28/18 08:33 11/28/18 09:07 11/28/18 08:33 11/28/18 08:33 11/28/18 08:33 Oxygen Flow Rate (L/min) 96 Oxygen Delivery Method Room Air Weight: 233 lb 14.567 oz Body Mass Index (BMI) 41.4 Intake and Output for Last 24 Hours 11/26/18 11/27/18 11/28/18 23:59 23:59 23:59 Intake Total 3483.33 / 3483.33 4370.00 / 4370.00 803.33 / 803.33 Output Total 1400 / 1400 1600 / 1600 800 / 800 Balance 2083.33 / 2083.33 2770.00 / 2770.00 3.33 / 3.33 General: Awake, Alert, Oriented x 3 HEENT: PERRL, EOMI, Sclera Non Icteric Neck: Supple, Good ROM, No Lymph Node Enlargement Lungs: Clear to auscultation Cardiovascular: Irregular Rhythm, Normal S1, Normal S2, No Rubs, No Gallops Murmur Murmur: Grade 2/6, Soft, Mid Systolic, [place] Vascular: No Carotid Bruits, Normal Femoral Pulses, Normal Radial Pulses, Normal Dorsalis Pedal Pulse, Normal Posterior Tibial Pulses Abdomen: Bowel Sounds Present, Soft, Non Tender, No HSM, No Organomegaly Extremities: No Cyanosis, No Clubbing, No edema Neurological: No Focal Motor or Sensory Deficit Rhythm: EKG: ECHO: Stress Test: Cardiac Cath: PCI: CT Surgery: Holter monitor: EPS: PPM: CXR: Chest CT Scan: Medical Necessity - Tobacco Use Smoking Status: Never smoker Tobacco Use: Non-smoker Assessment/Plan 1. Atrial fibrillation: Patient remains in atrial fibrillation, and will most likely require an elective DC cardioversion in 3 weeks time when she has demonstrated adequate treatment with Eliquis therapy. In the meantime she is on high-dose beta-lenora therapy at metoprolol 100 mg p.o. twice daily, as well as Cardizem CD 120 mg p.o. twice daily. At this point her heart rate is barely controlled, and would recommend increasing her Cardizem to 180 mg p.o. twice daily in conjunction with her metoprolol. Recommend continuing Eliquis therapy. Patient has at least moderate pulmonary hypertension by echocardiogram, as well as mitral regurgitation and atrial enlargement which is contributing to her atrial fibrillation. The patient may require amiodarone assistance for maintenance of normal sinus rhythm going forward. 2. Coronary artery disease: Apparently the patient has a history of coronary artery disease and she denies any anginal symptoms. 3. Hyperlipidemia: Continue Zetia. Patient is unable to tolerate statins. 4. Thank you very much for the opportunity to participate in the cardiac care of your patient. Code Visit Inpatient E&M: 23453 Subs Hosp L2
[2018-11-28] MEDS: dilTIAZem 60 MG CAP.SR.12H PO (10:29)
--- NOTE | 2018-11-28 11:26 | DCINST_ITS ---
- Discharge Diagnoses Current Active Problems: Current Active and Chronic Problems (Last Updated 10/28/18 @ 11:02 by Shania Pinon) Urinary tract infection (Acute) Leukocytosis (Acute) Episodic confusion (Acute) Sepsis (Acute) Fall at home (Acute) Malaise (Acute) Chills (Acute) You will use the following diet at home:: Cardiac Your food should be the consistency of: Regular Your liquids should be the consistency of: Regular/Thin Discharge Activity: Return to Normal Activity Allergies/Adverse Reactions: Allergies Penicillins Allergy (Verified 10/28/18 11:00) Hives atorvastatin [From Lipitor] Adverse Reaction (Severe, Verified 10/28/18 11:00) Elevated LFT Medications to take at Discharge Aspirin E.C. [Ecotrin] 81 mg PO DAILY@0800 tab 07/27/15 Esomeprazole Mag Trihydrate [Nexium] 20 mg PO DAILY 08/14/16 Ranitidine [Zantac] 300 mg PO QHS 08/14/16 Oxycodone HCl/Acetaminophen [Percocet 5-325] 1 tab PO BID 05/01/17 etanercept 50 mg/mL (1 mL) subcutaneous syringe 50 mg SC QWEEK 01/05/18 amlodipine 2.5 mg tablet 2.5 mg PO DAILY #90 tab 02/02/18 allopurinol 100 mg tablet 200 mg PO DAILY 10/28/18 prednisone 5 mg tablet 5 mg PO DAILY 10/28/18 Ezetimibe 10 mg PO QHS 11/25/18 Oxybutynin Chloride [Oxybutynin Chloride ER] 15 mg PO DAILY 11/25/18 Apixaban [Eliquis] 5 mg PO BID #60 tab 11/28/18 Diltiazem CD [Cardizem CD] 180 mg PO Q12 #60 cap 11/28/18 Metoprolol Tartrate [Lopressor (beta lenora)] 100 mg PO BID #60 tab 11/28/18 The following prescriptions were given: Diltiazem CD [Cardizem CD] 180 mg PO Q12 #60 cap Transmission Status: Pending to [id number] Apixaban [Eliquis] 5 mg PO BID #60 tab Transmission Status: Pending to [id number] Metoprolol Tartrate [Lopressor (beta lenora)] 100 mg PO BID #60 tab Transmission Status: Pending to [id number] Primary Care Physician: Miles Reid MD [Primary Care Provider] - Please follow up with your Primary Care Physician in: 1 week Test Results: Test results from this visit will be discussed in further detail at your follow- up appointment, if applicable. Please Follow Up With: Miles Reid MD Please Follow Up With: Miles Macdonald MD When: as directed Proposed Discharge Date: 11/28/18
--- NOTE | 2018-11-28 12:00 | NURSING ---
AMBULATED PT IN [facility]. HR WAS IN 70-80'S WHEN WE FIRST STARTED. PEAKED AT 120 BUT DID NOT SUSTAIN. HUNTER NOTIFIED. WAITING FOR [facility] TO D/C.
--- NOTE | 2018-11-28 12:08 | DS.PCM_ITS ---
<Suresh Salgado - Last Filed: 11/28/18 12:08> Discharge Date and Diagnosis - Problem List Patient Problems: Active and Suspected Problems (Last Updated 10/28/18 @ 11:02 by Shania Pinon) Urinary tract infection (Acute) Leukocytosis (Acute) Episodic confusion (Acute) Sepsis (Acute) Fall at home (Acute) Malaise (Acute) Chills (Acute) Date of Admission: 11/25/18 Date of Discharge: 11/28/18 - Primary Discharge Diagnosis Active and Suspected Problems (Last Updated 10/28/18 @ 11:02 by Shania Pinon) Acute sepsis secondary to acute cystitis-E. 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 RAD/Chest PA and Lateral IMPRESSION: Findings suggestive of a mild degree of vascular congestion with mild degree of bibasilar atelectasis slightly worse on the left side. Echo: Interpretation Summary The study was technically difficult. Contrast injection was performed. Left ventricular systolic function is normal. The estimated ejection fraction is 70 %. The left atrium is severely enlarged. There is moderate mitral annular calcification. Extension of the mitral annular calcification onto the posterior mitral valve leaflet peer Moderate focal mitral valve calcification of the anterior leaflet. Mild mitral valve prolapse. Moderate (2+) mitral valve insufficiency. Mild tricuspid valve insufficiency. Trivial aortic valve insufficiency. Mild (1+) pulmonic valve insufficiency. Calcified aortic root. Right ventricular systolic pressure estimated to be 42 mmHg. Unable to assess diastolic dysfunction. Consults: Cardiology : Torres/Bossman Operations: None Procedures: 2-D Echocardiogram Summary of Care Provided: Hospital course: The patient is a 72 year old F with pmhx of paroxysmal afib requiring prior ablations, who presented to the ER with c/o confusion, malaise, chills, and falls at home. She was found to be septic with a positive UA, tachycardia, WBC count of 19k, tachypnea, and negative lactate. EKG/tele showed Afib/RVR. She was admitted to the PCU and placed on ceftriaxone and cardiology was consulted. Metoprolol was increased, and ultimately cardizem was added at increasing doses to 180 mg BID. An echo was obtained with results as above. Cardiology placed her on eliquis. Her mentation resolved to baseline by the day following admission. Her urine demonstrated E coli, suspectible to keflex. She was transition to PO keflex to complete a total of 5 days of therapy. She had improved control of her pulse, although she remains in afib. She will go home on Metoprolol 100 bid, cardizem 180 BID, and eliquis. She will need f/u with cardiology in the office as directed, and to follow up with her PCP in 1-2 weeks. She was discharged home in stable condition. This patient was seen by Suresh Salgado PA-C under the supervision of Dr. Lozano. [] Patient Problems: Active and Suspected Problems (Last Updated 10/28/18 @ 11:02 by Shania Pinon) Urinary tract infection (Acute) Leukocytosis (Acute) Episodic confusion (Acute) Sepsis (Acute) Fall at home (Acute) Malaise (Acute) Chills (Acute) - Physical Exam General: Alert, Oriented x3, Cooperative HEENT: Atraumatic, PERRLA, EOMI, Normocephalic Neck: Supple, No JVD, Negative Carotid Bruits Lungs: Clear to auscultation, Normal air movement Cardiovascular: No murmurs, Irregular Rate Abdomen: Bowel Sounds Present, Soft, Non Tender Extremities: No edema, Capillary Refill Less than 3 Seconds Skin: No rashes, No breakdown Musculoskeletal: No Tenderness to Palpation of Joints or Extremities Neurological: Cranial nerves II-XII grossly intact Psych/Mental Status: Normal Affect, Appropriate, Alert and oriented to time, place, person, mood and affect Vital Signs Temp Pulse Resp BP Pulse Ox 98.2 F 101 H 18 161/84 H 97 11/28/18 08:33 11/28/18 09:07 11/28/18 08:33 11/28/18 08:33 11/28/18 08:33 Oxygen Flow Rate (L/min) 96 Oxygen Delivery Method Room Air Weight: 233 lb 14.567 oz Body Mass Index (BMI) 41.4 Intake and Output for Last 24 Hours 11/26/18 11/27/18 11/28/18 23:59 23:59 23:59 Intake Total 3483.33 / 3483.33 4370.00 / 4370.00 1203.33 / 1203.33 Output Total 1400 / 1400 1600 / 1600 1300 / 1300 Balance 2083.33 / 2083.33 2770.00 / 2770.00 -96.67 / -96.67 Microbiology Past 72 Hours 11/25/18 16:50 Blood Culture - Final Blood Culture (Wb) - Left Forearm Presumptive E. coli 11/25/18 14:35 Blood Culture - Final Blood Culture (Wb) - Anticubital Left Escherichia coli 11/25/18 15:05 Urine Culture - Final Urine Catheter - Catheter Presumptive E. coli Laboratory Tests Past 24 Hrs 11/27/18 05:17 Diff Path Review Reviewed Discharge Diet: Low fat/ Low Cholesterol, 2000 mg Sodium Diet Discharge Activity: Return to Normal Activity Home Medications: Medications to take at Discharge Aspirin E.C. [Ecotrin] 81 mg PO DAILY@0800 tab 07/27/15 Esomeprazole Mag Trihydrate [Nexium] 20 mg PO DAILY 08/14/16 Ranitidine [Zantac] 300 mg PO QHS 08/14/16 Oxycodone HCl/Acetaminophen [Percocet 5-325] 1 tab PO BID 05/01/17 etanercept 50 mg/mL (1 mL) subcutaneous syringe 50 mg SC QWEEK 01/05/18 amlodipine 2.5 mg tablet 2.5 mg PO DAILY #90 tab 02/02/18 allopurinol 100 mg tablet 200 mg PO DAILY 10/28/18 prednisone 5 mg tablet 5 mg PO DAILY 10/28/18 Ezetimibe 10 mg PO QHS 11/25/18 Oxybutynin Chloride [Oxybutynin Chloride ER] 15 mg PO DAILY 11/25/18 Apixaban [Eliquis] 5 mg PO BID #60 tab 11/28/18 Cephalexin [Keflex] 500 mg PO Q6H #7 cap 11/28/18 Diltiazem CD [Cardizem CD] 180 mg PO Q12 #60 cap 11/28/18 Metoprolol Tartrate [Lopressor (beta lenora)] 100 mg PO BID #60 tab 11/28/18 Following Prescrptions Were Given to Patient: Diltiazem CD [Cardizem CD] 180 mg PO Q12 #60 cap Transmission Status: [id number] Apixaban [Eliquis] 5 mg PO BID #60 tab Transmission Status: Received by [id number] Cephalexin [Keflex] 500 mg PO Q6H #7 cap Transmission Status: Received by [id number] Metoprolol Tartrate [Lopressor (beta lenora)] 100 mg PO BID #60 tab Transmission Status: Received by [facility] Primary Care Physician: Miles Reid MD [Primary Care Provider] - Please follow up with your Primary Care Physician in: 1 week Please Follow Up With: Miles Reid MD Please Follow Up With: Miles Macdonald MD When: as directed Disposition: Home Minutes spent on discharge:: 35 Patient Condition:: Stable Medical Necessity - Tobacco Use Smoking Status: Never smoker Tobacco Use: Non-smoker Meaningful Use Info Meaningful Use Diagnoses (Choose all that apply): None applicable <Rommel Lozano F - Last Filed: 11/28/18 12:34> Discharge Date and Diagnosis - Primary Discharge Diagnosis Active and Suspected Problems (Last Updated 10/28/18 @ 11:02 by Shania Pinon) Urinary tract infection (Acute) Leukocytosis (Acute) Episodic confusion (Acute) Sepsis (Acute) Fall at home (Acute) Malaise (Acute) Chills (Acute) - Secondary Discharge Diagnosis Chronic Problems (Last Updated 10/28/18 @ 11:02 by Shania Pinon) Old myocardial infarction (Chronic) Nonrheumatic mitral (valve) insufficiency (Chronic) Recurrent pancreatitis (Chronic) Hyperlipidemia (Chronic) Familial combined hyperlipidemia (Chronic) Morbid obesity with BMI of 40.0-44.9, adult (Chronic) Benign hypertension (Chronic) Hospital Course and Treatment Summary of Care Provided: The patient is a 72 year old F [] - Physical Exam Vital Signs Temp Pulse Resp BP Pulse Ox 98.2 F 101 H 18 161/84 H 97 11/28/18 08:33 11/28/18 09:07 11/28/18 08:33 11/28/18 08:33 11/28/18 08:33 Oxygen Flow Rate (L/min) 96 Oxygen Delivery Method Room Air Weight: 233 lb 14.567 oz Body Mass Index (BMI) 41.4 Intake and Output for Last 24 Hours 11/26/18 11/27/18 11/28/18 23:59 23:59 23:59 Intake Total 3483.33 / 3483.33 4370.00 / 4370.00 1203.33 / 1203.33 Output Total 1400 / 1400 1600 / 1600 1300 / 1300 Balance 2083.33 / 2083.33 2770.00 / 2770.00 -96.67 / -96.67 Microbiology Past 72 Hours 11/25/18 16:50 Blood Culture - Final Blood Culture (Wb) - Left Forearm Presumptive E. coli 11/25/18 14:35 Blood Culture - Final Blood Culture (Wb) - Anticubital Left Escherichia coli 11/25/18 15:05 Urine Culture - Final Urine Catheter - Catheter Presumptive E. coli Laboratory Tests Past 24 Hrs 11/27/18 05:17 Diff Path Review Reviewed Code Visit Addendum: Dr. Lozano I personally examined the patient and reviewed the chart. I agree with the above. 72-year-old female presents with increasing episodes of unsteadiness and falls as well as chills. She was found to have a UA consistent with UTI and a urine culture with E. coli that is pansensitive. She is feeling much better however she was found to be in A. fib with RVR when she came in and she was started and increased on rate control. She is on metoprolol 100 mg p.o. twice daily as well as Cardizem 120 p.o. twice daily, on the day of discharge her heart rate did increase with ambulation and therefore she was increased to 180 twice daily which she seems to be tolerating. She will be discharged home with outpatient follow-up and she is to continue both metoprolol and Cardizem as well as Eliquis. Inpatient E&M: [id number] Disch Hosp
--- NOTE | 2018-11-30 16:03 | CASEMGMT ---
HOLLIS MONTERO F/U Phone Call LACE: 11 Strata: 3 Discharge date: 11/28/18 Call date: 11/30/18 Call time: [id number] Duration: Admission dx: UTI, sepsis Pt states has been 'hanging in there' since discharge. Pt states no questions regarding discharge instructions or medications at this time. Pt states has f/u appt's scheduled and plans to keep them. Pt states she was 'very upset that I wasn't able to leave on friday' d/t heart rate. Pt states that she should have been told there may have been a possibility that she would not go. Pt was also upset about how sensitive the bed alarms were and states that 'about drove me crazy.' Pt states 'I blew up and I am over it.' Pt states no other concerns with stay at this time. Pt states no further suggestions for [facility] at this time. Pt states no further questions/concerns/needs at this time. [place] HOLLIS MONTERO
== END 2018-11-28 12:58 | disposition home or self-care (01) | DRG 871 ==
LOC: ED 16:32 → PCU 17:03
PROVIDERS: Physician Assistant; Admitting Provider Internal Medicine; Emergency Provider Emergency Medicine; Family Provider Family Medicine; PCP Family Medicine; Referring Provider Internal Medicine; Visit Provider Family Medicine
DX: A41.9 Sepsis, unspecified organism (principal); G93.41 Metabolic encephalopathy; N30.00 Acute cystitis without hematuria; K86.1 Other chronic pancreatitis; Z68.41 Body mass index [BMI] 40.0-44.9, adult; R53.81 Other malaise; W19.XXXA Unspecified fall, initial encounter; R29.6 Repeated falls; M06.9 Rheumatoid arthritis, unspecified; I10 Essential (primary) hypertension; E78.49 Other hyperlipidemia; E66.01 Morbid (severe) obesity due to excess calories; I48.0 Paroxysmal atrial fibrillation; I25.2 Old myocardial infarction; K21.9 Gastro-esophageal reflux disease without esophagitis; M48.061 Spinal stenosis, lumbar region without neurogenic claudication; I34.1 Nonrheumatic mitral (valve) prolapse; I34.0 Nonrheumatic mitral (valve) insufficiency; M79.7 Fibromyalgia; Z79.82 Long term (current) use of aspirin; Z79.899 Other long term (current) drug therapy; E86.0 Dehydration; G89.29 Other chronic pain; Z79.891 Long term (current) use of opiate analgesic; Z79.52 Long term (current) use of systemic steroids; B96.20 Unspecified Escherichia coli [E. coli] as the cause of diseases classified elsewhere; I27.20 Pulmonary hypertension, unspecified; I25.10 Atherosclerotic heart disease of native coronary artery without angina pectoris
CPT/HCPCS: 36415; 70450; 71046; 80048; 81001; 83605; 84484; 85025; 87040; 87077; 87086; 87088; 87186; 93005; 93306; 97162; 97166; 97530; 97535; 97802; 99285; J7030; J7050; Q9957; A4216; C8929

== ENCOUNTER → 2018-12-04 | Outpatient (CLI) | payer MEDICARE, OTHER, SELFPAY ==
[2018-11-25 17:41] VITALS: BMI 41.4
--- NOTE | 2018-12-04 11:05 | RAD_ITS ---
STUDY: X-RAY - LEFT KNEE REASON FOR EXAM: Female, 72 years old. Several recent falls TECHNIQUE: 4 view(s) of the knee. COMPARISON: None. FINDINGS: There is expected appearance of total knee arthroplasty in expected position with normal bone interface. Distal femur, proximal tibia and fibula are intact. Mineralization is decreased. Soft tissues are unremarkable RAD/Knee 4 or More Views IMPRESSION: Expected appearance of total knee arthroplasty. Osteopenia/osteoporosis. Electronically Signed: Kanchan Briones, at 18:41 EDT Tel , Service support ,
== END | disposition home or self-care (01) ==
LOC: MTRAD 11:04
PROVIDERS: Family Provider Family Medicine; PCP Family Medicine; Referring Provider Anesthesiology Pain Medicine; Visit Provider Anesthesiology Pain Medicine
DX: M25.562 Pain in left knee (principal); W19.XXXA Unspecified fall, initial encounter
CPT/HCPCS: 73564

== ENCOUNTER → 2018-12-07 | Outpatient (CLI) | payer MEDICARE, OTHER, SELFPAY ==
[2018-11-25 17:41] VITALS: BMI 41.4
== END | disposition home or self-care (01) ==
LOC: LABSPEC 14:09
PROVIDERS: Family Provider Family Medicine; PCP Family Medicine; Referring Provider Family Medicine; Visit Provider Family Medicine
DX: N39.0 Urinary tract infection, site not specified (principal)
CPT/HCPCS: 87086; 87088

== ENCOUNTER 2018-12-09 12:09 | Emergency (ER) | payer MEDICARE, OTHER, SELFPAY ==
[2018-11-25 17:41] VITALS: BMI 41.4
[2018-12-09 12:10] VITALS: BP 134/65; PULSE 68; RESP 27; TEMP 36.7; O2SAT 92; BMI 41.9
[2018-12-09 12:13] VITALS: O2SAT 99
--- NOTE | 2018-12-09 12:32 | EKG12_ITS ---
Test Reason : SOB Blood Pressure : / mmHG Vent. Rate : 068 BPM Atrial Rate : 068 BPM P-R Int : 176 ms QRS Dur : 072 ms QT Int : 440 ms P-R-T Axes : 090 -18 014 degrees QTc Int : 467 ms Normal sinus rhythm Normal ECG When compared with ECG of 25-NOV-2018 13:31, Sinus rhythm has replaced Atrial fibrillation Vent. rate has decreased BY [address] no longer depressed in Anterior leads ST elevation now present in Lateral leads Confirmed by DENISE DAMON ([id number]), editor continuity and script RAMOS RUSSELL ([id number]) on 12/11/2018 10:33:19 AM Referred By: DC Confirmed By:DENISE DAMON
--- NOTE | 2018-12-09 12:35 | RAD_ITS ---
STUDY: X-RAY CHEST REASON FOR EXAM: Female, 72 years old. Chest pain and shortness of breath. TECHNIQUE: Single AP portable view of the chest. COMPARISON: Comparison is made with prior study November 25, 2018. FINDINGS: EKG electrode are seen. Stable mild degree of increased markings in the lingular segment of the left upper lobe. There is no demonstrated pleural abnormality. There is borderline cardiomegaly. Normal mediastinum and uche. Normal visualized pulmonary arteries. There is atherosclerotic calcification of the aortic arch with tortuosity. There are diffuse degenerative changes of the visualized thoracic spine. Deformity of the proximal left humerus in keeping with old fracture. There is no demonstrated abnormality of the visualized soft tissue structures of the upper abdomen. RAD/Chest 1 View (Portable) IMPRESSION: Stable mild increased markings at the left lung base as described most likely representing scarring. Electronically Signed: Wilman Louise, at 12:50 EDT , Service support ,
[2018-12-09 12:46] VITALS: BP 126/73; PULSE 63; RESP 21; O2SAT 99
[2018-12-09 12:49] LABS: Absolute Lymphocyte Count 1.86 X10^3/uL (0.83-4.51); Absolute Neutrophil Count 8.8 X10^3/uL (2.0-7.7); Basophil# 0.02 X10^3/uL; Basophil% 0.2 % (0-1); Eosinophil# 0.15 X10^3/uL; Eosinophils% 1.2 % (0-5); Hematocrit 39.5 % (37-47); Hemoglobin 12.6 g/dL (12.0-15.0); Lymphocyte # 1.86 X10^3/ul (4.0); Lymphocyte % 15.4 % (19-41); Mean Corp Hgb Conc 31.9 g/dL (32-36); Mean Corpuscular Hgb 28.6 pg (27.0-32.0); Mean Corpuscular Volume 89.6 fL (81-99); Mean Platelet Vol. 10.1 fl (6.2-12.0); Monocyte# 1.21 X10^3/uL; NRBC Flagged by Analyzer 0 % (0-5); Neutrophil # 8.78 X10^3/uL (2.7-7.7); Neutrophil % 72.8 % (47-70); Platelet Count 225 K/mm3 (150-450); RBC Distribution Width CV 16.7 % (11.6-14.6); RBC Distribution Width SD 54.5 fl (35.1-43.9); Red Blood Count 4.41 M/mm3 (4.2-5.4); White Blood Count 12.1 K/mm3 (4.4-11.0)
[2018-12-09] MEDS: Albuterol 2.5 MG/3 ML VIAL.NEB. INHALATION (12:56)
[2018-12-09 12:57] VITALS: PULSE 64; RESP 18
[2018-12-09 13:00] LABS: Anion Gap 9 (5-15); BUN 19 mg/dL (7-18); BUN/Creat Ratio 18.4 RATIO (10-20); Calcium,Total 9.1 mg/dL (8.5-10.1); Chloride 105 mmol/L (98-107); Creatinine, Serum 1.03 mg/dL (0.55-1.02); EST Glomerular Filtration Rate 56 mL/min (>60); Est Glom Filt Rate - Afr Amer 67 mL/min (>60); Estimated Creatinine Clearance 39.64 ml/min; Glucose 126 mg/dL (74-106); Potassium 4.1 mmol/L (3.5-5.1); Sodium Level 139 mmol/L (136-145)
[2018-12-09 13:22] LABS: BNP,B-Type NATRIURETIC PEPTIDE 77.2 pg/mL (0-100)
--- NOTE | 2018-12-09 14:20 | ED.DCSUM_ITS ---
- ER Visit Summary Date of Service: 12/09/18 Chief Complaint: Shortness of breath History of Present Illness: The patient is a 72 F with shortness of breath that started today. He came on gradually. Worse with exertion. Patient denies any associated symptoms like chest pain, cough, sputum, fever. She has a history of atrial fibrillation and is compliant with her Eliquis. She is also compliant with her blood pressure medications. He was recently admitted to the hospital for UTI with sepsis. She completed her antibiotics. Physical Examination: Afebrile and vital signs unremarkable. Patient is anxious and speaking in short sentences. Lungs are clear but diminished. Heart is regular. Abdomen soft. Extremities nontender with no edema. Test Results: EKG showed sinus rhythm at a rate of 68. No sign of ischemia or infarction pattern. White count 12.1. BMP unremarkable. Troponin and BNP normal. Chest x-ray showed left base suspected scarring. Emergency Department Course and Treatment: Patient was placed on a monitor. She received 1 albuterol nebulized treatment. On reevaluation, patient is feeling better. She says she feels claustrophobic in the exam room and is requesting discharge. I spoke with her. Her symptoms have resolved. She has been up and ambulating without difficulty or shortness of breath. She is not having new or different symptoms. She would like to follow-up as an outpatient. I believe this is reasonable. Risks of outpatient versus inpatient evaluation were discussed. Patient will return with any issues. Treatment Plan: As above Disposition: Discharge Impression: 1. Dyspnea resolved This note was generated with [employer] dictation software. It may contain incorrect words, spelling, and punctuation that were not noted in review of the chart prior to signing ED Disposition - Plan for ED Patient: Referrals: Miles Reid MD [Primary Care Provider] -
--- NOTE | 2018-12-09 14:23 | ED.DEP ---
ED Disposition - Plan for ED Patient: Instructions: ED Dyspnea Referrals: Miles Reid MD [Primary Care Provider] -
[2018-12-09 14:45] VITALS: BP 149/63; PULSE 69; RESP 19; O2SAT 95
== END 2018-12-09 14:45 | disposition home or self-care (01) ==
LOC: ED 13:05
PROVIDERS: Emergency Provider Emergency Medicine; Family Provider Family Medicine; PCP Family Medicine
DX: R06.00 Dyspnea, unspecified (principal); I48.91 Unspecified atrial fibrillation; Z79.02 Long term (current) use of antithrombotics/antiplatelets; I25.2 Old myocardial infarction; M06.9 Rheumatoid arthritis, unspecified; Z79.82 Long term (current) use of aspirin; Z79.899 Other long term (current) drug therapy
CPT/HCPCS: 71045; 80048; 83880; 84484; 85025; 93005; 94640; 99284; A4216

== ENCOUNTER → 2018-12-17 | Outpatient (CLI) | payer MEDICARE, OTHER, SELFPAY ==
[2018-12-10 11:38] VITALS: BMI 39.6
[2018-12-17 15:49] LABS: Absolute Lymphocyte Count 1.83 X10^3/uL (0.83-4.51); Absolute Neutrophil Count 4.7 X10^3/uL (2.0-7.7); Basophil# 0.03 X10^3/uL; Basophil% 0.4 % (0-1); Eosinophil# 0.29 X10^3/uL; Eosinophils% 3.8 % (0-5); Hematocrit 43.4 % (37-47); Hemoglobin 13.3 g/dL (12.0-15.0); Lymphocyte # 1.83 X10^3/ul (4.0); Lymphocyte % 23.9 % (19-41); Mean Corp Hgb Conc 30.6 g/dL (32-36); Mean Corpuscular Hgb 28.4 pg (27.0-32.0); Mean Corpuscular Volume 92.7 fL (81-99); Mean Platelet Vol. 10.2 fl (6.2-12.0); Monocyte# 0.78 X10^3/uL; Monocyte% 10.2 % (0-10); NRBC Flagged by Analyzer 0 % (0-5); Neutrophil # 4.68 X10^3/uL (2.7-7.7); Neutrophil % 61.2 % (47-70); Platelet Count 232 K/mm3 (150-450); RBC Distribution Width CV 16.5 % (11.6-14.6); RBC Distribution Width SD 56.5 fl (35.1-43.9); Red Blood Count 4.68 M/mm3 (4.2-5.4); White Blood Count 7.7 K/mm3 (4.4-11.0)
[2018-12-17 16:06] LABS: ALB/GLOB Ratio 0.9 RATIO (0.9-2.4); AST(SGOT) 18 U/L (15-37); Alanine Aminotransfer ALT/SGPT 33 U/L (13-56); Albumin, Serum 3.8 g/dL (3.2-5.0); Alkaline Phosphatase 146 U/L (45-117); Anion Gap 5 (5-15); BUN 18 mg/dL (7-18); BUN/Creat Ratio 16.7 RATIO (10-20); Calcium,Total 9.7 mg/dL (8.5-10.1); Chloride 105 mmol/L (98-107); Creatinine, Serum 1.08 mg/dL (0.55-1.02); EST Glomerular Filtration Rate 53 mL/min (>60); Est Glom Filt Rate - Afr Amer 64 mL/min (>60); Globulin 4.4 g/dL (2.2-4.2); Glucose 92 mg/dL (74-106); Potassium 3.9 mmol/L (3.5-5.1); Protein, Total 8.2 g/dL (6.4-8.2); Sodium Level 138 mmol/L (136-145); Uric Acid 5.5 mg/dL (2.6-6.0)
== END | disposition home or self-care (01) ==
LOC: MTLAB 13:54
PROVIDERS: Family Provider Family Medicine; PCP Family Medicine; Referring Provider Internal Medicine Rheumatology; Visit Provider Internal Medicine Rheumatology
DX: M06.09 Rheumatoid arthritis without rheumatoid factor, multiple sites (principal); M79.7 Fibromyalgia; M25.561 Pain in right knee; M17.0 Bilateral primary osteoarthritis of knee; M10.9 Gout, unspecified; K76.0 Fatty (change of) liver, not elsewhere classified; Z79.899 Other long term (current) drug therapy
CPT/HCPCS: 36415; 80053; 84550; 85025

== ENCOUNTER → 2018-12-24 | Outpatient (CLI) | payer MEDICARE, OTHER, SELFPAY ==
[2018-12-10 11:38] VITALS: BMI 39.6
[2018-12-24 17:39] LABS: Absolute Lymphocyte Count 1.08 X10^3/uL (0.83-4.51); Absolute Neutrophil Count 4.1 X10^3/uL (2.0-7.7); Basophil# 0.03 X10^3/uL; Basophil% 0.5 % (0-1); Eosinophil# 0.55 X10^3/uL; Eosinophils% 8.5 % (0-5); Hematocrit 40.4 % (37-47); Hemoglobin 12.8 g/dL (12.0-15.0); Lymphocyte # 1.08 X10^3/ul (4.0); Lymphocyte % 16.6 % (19-41); Mean Corp Hgb Conc 31.7 g/dL (32-36); Mean Corpuscular Volume 91.4 fL (81-99); Monocyte# 0.66 X10^3/uL; Monocyte% 10.2 % (0-10); NRBC Flagged by Analyzer 0 % (0-5); Neutrophil # 4.14 X10^3/uL (2.7-7.7); Neutrophil % 63.7 % (47-70); Platelet Count 206 K/mm3 (150-450); RBC Distribution Width CV 15.7 % (11.6-14.6); RBC Distribution Width SD 53.4 fl (35.1-43.9); Red Blood Count 4.42 M/mm3 (4.2-5.4); White Blood Count 6.5 K/mm3 (4.4-11.0)
[2018-12-24 17:59] LABS: ALB/GLOB Ratio 0.9 RATIO (0.9-2.4); AST(SGOT) 16 U/L (15-37); Alanine Aminotransfer ALT/SGPT 28 U/L (13-56); Albumin, Serum 3.4 g/dL (3.2-5.0); Alkaline Phosphatase 130 U/L (45-117); Anion Gap 7 (5-15); BUN 17 mg/dL (7-18); BUN/Creat Ratio 17.4 RATIO (10-20); Calcium,Total 9.2 mg/dL (8.5-10.1); Chloride 107 mmol/L (98-107); Creatinine, Serum 0.98 mg/dL (0.55-1.02); EST Glomerular Filtration Rate 59 mL/min (>60); Est Glom Filt Rate - Afr Amer 72 mL/min (>60); Globulin 3.9 g/dL (2.2-4.2); Glucose 106 mg/dL (74-106); Potassium 3.7 mmol/L (3.5-5.1); Protein, Total 7.3 g/dL (6.4-8.2); Sodium Level 143 mmol/L (136-145)
== END | disposition home or self-care (01) ==
LOC: MTLAB 16:58
PROVIDERS: Family Provider Family Medicine; PCP Family Medicine; Referring Provider Dermatology; Visit Provider Dermatology
DX: L30.9 Dermatitis, unspecified (principal)
CPT/HCPCS: 36415; 80053; 85025

== ENCOUNTER → 2019-02-02 13:48 | Outpatient (CLI) | payer MEDICARE, OTHER, SELFPAY ==
[2019-01-25 11:41] VITALS: BMI 39.4
== END ==
PROVIDERS: Family Provider Family Medicine; PCP Family Medicine; Visit Provider Family Medicine
DX: N39.0 Urinary tract infection, site not specified (principal)
CPT/HCPCS: 87077; 87086; 87088; 87186

== ENCOUNTER → 2019-02-11 13:32 | Outpatient (CLI) | payer MEDICARE, OTHER, SELFPAY ==
[2019-01-25 11:41] VITALS: BMI 39.4
--- NOTE | 2019-02-11 13:34 | US_ITS ---
STUDY: RENAL ULTRASOUND - COMPLETE REASON FOR EXAM: Female, 73 years old. Cystitis TECHNIQUE: Ultrasound evaluation of the kidneys was performed with real-time and static rodriguez-scale imaging. COMPARISON: None. FINDINGS: RIGHT KIDNEY: Normal location of the right kidney, which is normal in size. The right kidney measures 10.2 cm. There is a normal cortex of the right kidney. The renal cortex measures 1 cm. There is no right renal mass or cyst. There are no right renal calculi. There is no right hydronephrosis. DISTAL RIGHT URETER: There is non-visualization of the distal right ureter. There is no demonstrated right ureterovesical junction calculus. There is a non- visualized right ureteral jet. LEFT KIDNEY: Normal location of the left kidney, which is normal in size. The left kidney measures 11.6 cm. There is a normal cortex of the left kidney. The renal cortex measures 1.2 cm. There is no left renal mass or cyst. There are no left renal calculi. There is no left hydronephrosis. DISTAL LEFT URETER: There is non-visualization of the distal left ureter. There is no demonstrated left ureterovesical junction calculus. There is a non-visualized left ureteral jet. BLADDER: The empty urinary bladder has a volume of 30 ml. There is a normal wall thickness of the distended urinary bladder. There is no demonstrated mass within the urinary bladder. There are no demonstrated bladder calculi. US/Kidney and Bladder IMPRESSION: Normal ultrasound of the kidneys and urinary bladder. Electronically Signed: Marcial Nichols MD at 23:12 EST , Service support ,
== END ==
PROVIDERS: Family Provider Family Medicine; PCP Family Medicine; Referring Provider Urology; Visit Provider Urology
DX: N30.20 Other chronic cystitis without hematuria (principal)
CPT/HCPCS: 76770

== ENCOUNTER → 2019-02-15 13:38 | Outpatient (CLI) | payer MEDICARE, OTHER, SELFPAY ==
[2019-01-25 11:41] VITALS: BMI 39.4
[2019-02-15 15:28] LABS: Anion Gap 7 (5-15); BUN 20 mg/dL (7-18); BUN/Creat Ratio 18.9 RATIO (10-20); Calcium,Total 9.2 mg/dL (8.5-10.1); Chloride 102 mmol/L (98-107); Creatinine, Serum 1.06 mg/dL (0.55-1.02); EST Glomerular Filtration Rate 54 mL/min (>60); Est Glom Filt Rate - Afr Amer 65 mL/min (>60); Glucose 111 mg/dL (74-106); Potassium 3.1 mmol/L (3.5-5.1); Sodium Level 138 mmol/L (136-145)
== END ==
PROVIDERS: Family Provider Family Medicine; PCP Family Medicine; Referring Provider Nurse Practitioner Family; Visit Provider Nurse Practitioner Family
DX: I48.0 Paroxysmal atrial fibrillation (principal); I34.1 Nonrheumatic mitral (valve) prolapse; I34.0 Nonrheumatic mitral (valve) insufficiency; E78.5 Hyperlipidemia, unspecified; I10 Essential (primary) hypertension
CPT/HCPCS: 36415; 80048

== ENCOUNTER → 2019-03-04 18:07 | Outpatient (CLI) | payer MEDICARE, OTHER, SELFPAY ==
[2019-01-25 11:41] VITALS: BMI 39.4
== END ==
PROVIDERS: Family Provider Family Medicine; PCP Family Medicine; Referring Provider Nurse Practitioner Adult Health; Visit Provider Nurse Practitioner Adult Health
DX: N39.0 Urinary tract infection, site not specified (principal)
CPT/HCPCS: 87086; 87088

== ENCOUNTER → 2019-03-25 | Outpatient (CLI) | payer MEDICARE, OTHER, SELFPAY ==
[2019-03-08 11:13] VITALS: BMI 39.4
[2019-03-25 14:06] LABS: Anion Gap 5 (5-15); BUN 27 mg/dL (7-18); BUN/Creat Ratio 24.5 RATIO (10-20); Calcium,Total 9.2 mg/dL (8.5-10.1); Chloride 101 mmol/L (98-107); EST Glomerular Filtration Rate 51 mL/min (>60); Est Glom Filt Rate - Afr Amer 62 mL/min (>60); Glucose 99 mg/dL (74-106); Potassium 4.4 mmol/L (3.5-5.1); Sodium Level 135 mmol/L (136-145)
== END | disposition home or self-care (01) ==
PROVIDERS: PCP Family Medicine; Referring Provider Nurse Practitioner Family; Visit Provider Nurse Practitioner Family
DX: E78.5 Hyperlipidemia, unspecified (principal); I10 Essential (primary) hypertension; I48.0 Paroxysmal atrial fibrillation; R06.00 Dyspnea, unspecified
CPT/HCPCS: 36415; 80048

== ENCOUNTER → 2019-04-02 | Outpatient (CLI) | payer MEDICARE, OTHER, SELFPAY ==
[2019-03-08 11:13] VITALS: BMI 39.4
== END | disposition home or self-care (01) ==
LOC: PSN 08:49
PROVIDERS: PCP Family Medicine; Referring Provider Nurse Practitioner Family; Visit Provider Nurse Practitioner Family
DX: I48.0 Paroxysmal atrial fibrillation (principal)
CPT/HCPCS: 93225; 93226

== ENCOUNTER 2019-04-03 07:54 | Inpatient (IN) | payer MEDICARE, OTHER, SELFPAY ==
[2019-03-08 11:13] VITALS: BMI 39.4
[2019-04-03] VITALS (10 sets, daily range): BP systolic 99–140; BP diastolic 60–86; PULSE 75–121; RESP 18–22; TEMP 36.7–37.4; O2SAT 21–100; BMI 42.7; BMI 41.8
--- NOTE | 2019-04-03 08:00 | RAD_ITS ---
STUDY: X-RAY CHEST REASON FOR EXAM: Female, 73 years old. Dyspnea, lower leg edema TECHNIQUE: Frontal and lateral views COMPARISON: December 09, 2018 FINDINGS: The lungs are not fully expanded. Left basilar scarring/atelectasis and possible nodular density. Cardiomegaly. Normal mediastinum and uche. Normal visualized pulmonary arteries. Calcified visualized aortic arch and descending thoracic aorta. Normal visualized thoracic spine. Normal visualized ribs, clavicles, and shoulders. There is no demonstrated abnormality of the visualized soft tissue structures of the upper abdomen. RAD/Chest PA and Lateral IMPRESSION: Left basilar scarring/atelectasis and possible nodular density. Cardiomegaly. Electronically Signed: Nagi Becker DO at 9:00 EST Tel [phone], Service support ,
--- NOTE | 2019-04-03 08:00 | EKG12_ITS ---
Test Reason : Blood Pressure : / mmHG Vent. Rate : 109 BPM Atrial Rate : 109 BPM P-R Int : 000 ms QRS Dur : 066 ms QT Int : 320 ms P-R-T Axes : 000 -19 048 degrees QTc Int : 430 ms Atrial fibrillation Nonspecific ST abnormality Abnormal ECG Confirmed by JEANETTE LOCKHART, JAYMIE ([id number]), editorial project manager EYAL DUMONT ([id number]) on 04/08/2019 2:50:06 PM Referred By: RICHY Confirmed By:CHARLENE REID MD
--- NOTE | 2019-04-03 08:01 | ED.VIS.GEN ---
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 She was admitted the end of last year for septicemia due to urinary tract infection. This caused her to go into A. fib. She is presently on Eliquis. She presently has a Holter monitor. She reports dyspnea, dyspnea on exertion with minimal activity. She denies chest pain. She does admit edema of her lower extremities. She is on a diuretic. She does report subjective fever and chills. She denies cough. She denies PND. She denies GI symptoms. She denies dysuria, frequency, urgency or hematuria. She states when she was diagnosed with a urinary tract accident in November 2018 she had no urinary symptoms. Patient states she decreased the Lasix because the edema resolved. Her edema has returned. She is sleeping in a chair upright. Prior similar symptoms: Yes Recent Illness/Hospitalization: No - Past Medical History (1) Dyspnea Status: Acute (2) Lichen sclerosus Status: Acute (3) Benign hypertension Status: Chronic (4) Familial combined hyperlipidemia Status: Chronic (5) Hyperlipidemia Status: Chronic (6) Morbid obesity with BMI of 40.0-44.9, adult Status: Chronic (7) Nonrheumatic mitral (valve) insufficiency Status: Chronic (8) Old myocardial infarction Status: Chronic (9) Paroxysmal atrial fibrillation Status: Chronic (10) Recurrent pancreatitis Status: Chronic Past Medical History - Allergies and Home Meds Allergies/Adverse Reactions: Allergies Penicillins Allergy (Verified 03/08/19 10:56) Hives atorvastatin [From Lipitor] Adverse Reaction (Severe, Verified 03/08/19 10:56) Elevated LFT Primary Care Physician: Miles Reid MD [Primary Care Provider] - Prior records reviewed: Yes Surgical History: appendectomy, cataract, cholecystectomy, total knee arthroplasty - left, - - Foot surgery, carpal tunnel surgery Lives: Alone Smoking Status: Never smoker Alcohol: None Drugs: None - Family History Maternal Family History: Family History (Last Reviewed 03/08/19 @ 11:01 by Shania Pinon) Sister Hypertension Other Arthritis Cancer Diabetes Family History: Reports: Renal Disease - age 70 Paternal Family History: Family History (Last Reviewed 03/08/19 @ 11:01 by Shania Pinon) Sister Hypertension Other Arthritis Cancer Diabetes Family History: Reports: - - age 45 cirrhosis Review of Systems General: Reports: Chills, Fever, Malaise, Subjective. Denies: Sweats, Weight loss Eyes: Denies: Visual changes - bilaterally, Blurred Vision - bilaterally ENT: Denies: Bilateral ear pain, Rhinorrhea, Sore throat Cardiovascular: Reports: Palpitations. Denies: Chest pain, Heart racing Respiratory: Reports: Dyspnea, Dyspnea on exertion, Orthopnea. Denies: Cough, Sputum, Paroxysmal nocturnal dyspnea Gastrointestinal: Denies: Abdominal pain, Nausea, Vomiting, Diarrhea, Melena, Hematochezia Genitourinary: Denies: Dysuria, Hematuria, Frequency Musculoskeletal: Reports: Swelling. Denies: Myalgias, Arthralgias, Neck pain, Back pain, Extremity Pain, -, - Skin: Denies: Rash, Wounds Neurological: Denies: Headache, Weakness, Numbness Hematologic: Denies: Easy bruising, Easy bleeding Allergy: Denies: Uticaria, Swelling of the mouth, Swelling of the tongue Physical Exam Vital Signs/Narrative: Vital Signs Temp Pulse Resp BP Pulse Ox 04/03/19 07:55 99.4 F H 75 22 H 99/60 96 Inital Vital Signs reviewed: Yes General: Well nourished, Well developed, Obese, Acute Distress Head: Normocephalic, Atraumatic Eyes: Perrl, EOMI. Negative for: Pale conjunctiva, Scleral icterus ENT: Moist mucous membranes, No rhinorrhea, TM's clear Neck: Supple, Nontender, No lymphadenopathy, No JVD Cardiovascular: Regular rhythm, No murmurs, Normal S1, Normal S2, Irregular Respiratory: CTA bilaterally, Chest nontender, Decreased Air Movement. Negative for: No distress Abdomen: Soft, Nontender, Nondistended, Normal bowel sounds, No masses, Hepatomegaly, Splenomegaly. Negative for: Mass, Pulsatile mass Rectal: Deferred Back: Nontender, Normal Inspection Extremities: Nontender, Edema - 2-3+ pitting. Negative for: No edema Skin: No rash, No Trauma, Pallor. Negative for: Normal color, Cyanosis, Diaphoresis, Jaundice, Rash Neurological: Alert, Oriented x3, Cranial nerves II-XII grossly intact, Normal Strength, Normal Sensation Psychological: Normal affect Diagnostic/Tx/Re-eval Chest X-Ray - ED: 2 View, Read by ED Physician, Cardiomegaly, - - X-ray is a limited study due to poor inspiratory volume, positioning and artifact on lateral view. Cardiac silhouette appears normal. There is cardiomegaly. There is no obvious abnormality of the osseous structures. 0848 Impressions Chest X-Ray 04/03/19 08:00 IMPRESSION: Left basilar scarring/atelectasis and possible nodular density. Cardiomegaly. Electronically Signed: Nagi Becker DO at 9:00 EST Tel [phone], Service support , 04/03/19 08:00 Chest PA and Lateral [RAD] Stat Laboratory Results 04/03/19 04/03/19 04/03/19 08:20 08:20 08:20 WBC 15.2 H RBC 4.22 Hgb 12.5 Hct 38.5 MCV 91.2 MCH 29.6 MCHC 32.5 RDW Std Deviation 52.2 H RDW Coeff of Patel 15.9 H Plt Count 131 L MPV 10.4 Immature Gran % (Auto) 0.900 Neut % (Auto) 91.7 H Lymph % (Auto) 2.0 L [place] % (Auto) 5.3 Eos % (Auto) 0.0 Baso % (Auto) 0.1 Absolute Neuts (auto) 14.0 H Absolute Lymphs (auto) 0.31 L Nucleated RBC % 0 Platelet Estimate ADEQUATE RBC Morphology NORM C+C Sodium 139 Potassium 4.2 Chloride 110 H Carbon Dioxide 24.0 Anion Gap 5 BUN 31 H Creatinine 1.27 H Estim Creat Clear Calc 31.66 Est GFR (MDRD) Af Amer 53 L Est GFR (MDRD) Non-Af 44 L BUN/Creatinine Ratio 24.4 H Glucose 139 H Lactic Acid 1.6 Calcium 9.1 Troponin I < 0.015 B-Natriuretic Peptide Urine Color Urine Clarity Urine pH Ur Specific [place] Urine Protein Urine Glucose (UA) Urine Ketones Urine Occult Blood Urine Nitrite Urine Bilirubin Urine Urobilinogen Ur Leukocyte Esterase Urine RBC Urine WBC Ur Squamous Epith Cells Urine Bacteria Urine Mucus 04/03/19 04/03/19 08:20 09:28 WBC RBC Hgb Hct MCV MCH MCHC RDW Std Deviation RDW Coeff of Patel Plt Count MPV Immature Gran % (Auto) Neut % (Auto) Lymph % (Auto) [place] % (Auto) Eos % (Auto) Baso % (Auto) Absolute Neuts (auto) Absolute Lymphs (auto) Nucleated RBC % Platelet Estimate RBC Morphology Sodium Potassium Chloride Carbon Dioxide Anion Gap BUN Creatinine Estim Creat Clear Calc Est GFR (MDRD) Af Amer Est GFR (MDRD) Non-Af BUN/Creatinine Ratio Glucose Lactic Acid Calcium Troponin I B-Natriuretic Peptide 133.4 H Urine Color Yellow Urine Clarity Cloudy Urine pH 6.0 Ur Specific [place] 1.015 Urine Protein 100 H Urine Glucose (UA) Normal Urine Ketones Negative Urine Occult Blood 250 H Urine Nitrite Negative Urine Bilirubin Negative Urine Urobilinogen Normal Ur Leukocyte Esterase 500 H Urine RBC 10-25 SEEN Urine WBC 25-50 SEEN Ur Squamous Epith Cells 0-5 SEEN Urine Bacteria 1+ Urine Mucus 0 SEEN Patient fever and chills are secondary to urinary tract infection. Urine culture as well as blood cultures were obtained as well as lactate. Hospitalist has been paged for admission. She was treated with ciprofloxacin since she reports hives to penicillin. - EKG Initial EKG Interpretation: Atrial Fibrillation - Atrial fibrillation with a ventricular rate of 109. QRS duration 66 ms. QT duration 320 ms. [place] is normal. Prior: Unchanged - The ST changes noted the lateral leads are unchanged from December 09, 2018. - Medical Decision Making Becomes moderately dyspneic with sitting up. With history of orthopnea pedal edema suspect CHF. Auscultatory exam is unremarkable, however. If chest x-ray reveals no evidence of CHF and troponin is normal will need to consider pulmonary embolus in the dye gnosis/differential even though patient is on Eliquis. CBC was obtained to assess white count and H&H. Basic metabolic panel was obtained to assess renal function and electrolytes especially since she is on a diuretic. Pulmonary to evaluate for recent ME. Unable to explain patient's significant dyspnea with normal BNP and nondiagnostic chest x-ray. Case discussed with hospitalist. Will obtain d-dimer. If d-dimer is elevated will obtain CTA of the chest. Patient will not be admitted until these results are known. Number was elevated even after correction for age. CTA to evaluate for pulmonary embolus was negative. ED Disposition - Plan for ED Patient: Disposition: Acute Care Hospital [facility] Diagnosis: Urinary tract infection, Sepsis, Sinus tachycardia by electrocardiogram, Dyspnea Referrals: Miles Reid MD [Primary Care Provider] -
[2019-04-03 08:36] LABS: Absolute Lymphocyte Count 0.31 X10^3/uL (0.83-4.51); Basophil# 0.02 X10^3/uL; Basophil% 0.1 % (0-1); Differential Indicated SCAN CRITERIA MET; Hematocrit 38.5 % (37-47); Hemoglobin 12.5 g/dL (12.0-15.0); Lymphocyte # 0.31 X10^3/ul (4.0); Mean Corp Hgb Conc 32.5 g/dL (32-36); Mean Corpuscular Hgb 29.6 pg (27.0-32.0); Mean Corpuscular Volume 91.2 fL (81-99); Mean Platelet Vol. 10.4 fl (6.2-12.0); Monocyte% 5.3 % (0-10); NRBC Flagged by Analyzer 0 % (0-5); Neutrophil # 13.95 X10^3/uL (2.7-7.7); Neutrophil % 91.7 % (47-70); POSITIVE DIFFERENTIAL YES; Platelet Count 131 K/mm3 (150-450); RBC Distribution Width CV 15.9 % (11.6-14.6); RBC Distribution Width SD 52.2 fl (35.1-43.9); Red Blood Count 4.22 M/mm3 (4.2-5.4); White Blood Count 15.2 K/mm3 (4.4-11.0)
[2019-04-03 08:58] LABS: Anion Gap 5 (5-15); BUN 31 mg/dL (7-18); BUN/Creat Ratio 24.4 RATIO (10-20); Calcium,Total 9.1 mg/dL (8.5-10.1); Chloride 110 mmol/L (98-107); Creatinine, Serum 1.27 mg/dL (0.55-1.02); EST Glomerular Filtration Rate 44 mL/min (>60); Est Glom Filt Rate - Afr Amer 53 mL/min (>60); Estimated Creatinine Clearance 31.66 ml/min; Glucose 139 mg/dL (74-106); Lactic Acid 1.6 mmol/L (0.4-1.9); Potassium 4.2 mmol/L (3.5-5.1); Sodium Level 139 mmol/L (136-145)
[2019-04-03 09:00] LABS: Platelet Estimate ADEQUATE (ADEQ); Red Cell Morphology NORM C+C NORMAL (NORM C&C)
[2019-04-03 09:03] LABS: BNP,B-Type NATRIURETIC PEPTIDE 133.4 pg/mL (0-100)
[2019-04-03 09:39] LABS: Mucous, Urine 0 SEEN /hpf (<or=2+)
[2019-04-03 09:41] LABS: Color, Urine Yellow (Yellow); Glucose, Dipstick Normal (Normal); Ketone-Dipstick Negative (Negative); Leukocyte Esterase-Dipstick 500 /ul (Negative); Nitrite-Dipstick Negative (Negative); Occult Blood-Urine 250 /ul (Negative); Protein-Dipstick 100 mg/dl (Negative); Specific Gravity, Urine 1.015 (1.002-1.030); Urine Bilirubin Dipstick Negative (Negative); Urine Clarity Cloudy (Clear); Urine Urobilinogen Normal (Normal)
[2019-04-03 09:53] LABS: Bacteria 1+ /hpf (None Seen); Red Blood Cells-Urine 10-25 SEEN /hpf (0-5); Squamous Epithelial Cells - UA 0-5 SEEN /hpf (5-10); White Blood Cells 25-50 SEEN /hpf (0-5)
[2019-04-03] MEDS: Ciprofloxacin 400 MG/200 ML BAG 200 MG IV (11:11)
[2019-04-03 11:12] LABS: D-Dimer Quantitative (DVT/PE) 1.58 FEU/ug/m (0.27-0.49)
--- NOTE | 2019-04-03 11:16 | NURSING ---
Critical D-dimer reported to Dr. Burns 1.58
--- NOTE | 2019-04-03 11:26 | CT_ITS ---
STUDY: CTA CHEST REASON FOR EXAM: Female, 73 years old. SOB, HX AFIB RADIATION DOSAGE (If Supplied By Facility): CTDIvol = ( 13.84 ) mGy, DLP = ( 451.15 ) mGycm TECHNIQUE: The examination was performed with the intravenous administration of 100 CC ISOVUE 370. Post-processing of the angiographic images was performed, with multiplanar reformation and 3D reconstruction. Individualized dose optimization techniques were used for this CT. COMPARISON: None. FINDINGS: Normal enhancement of the main pulmonary artery and right and left pulmonary arteries. Normal enhancement of the bilateral peripheral pulmonary arteries. There is no demonstrated pulmonary embolism. Normal thoracic aorta and visualized great vessels. There is no demonstrated aortic dissection. Normal heart and pericardium. Normal mediastinum. Normal hilar regions. Normal visualized trachea and bronchi. The lungs are well expanded. Normal pulmonary parenchyma. Normal pleura. Normal chest wall structures. Mild degenerative vertebral changes. Normal visualized upper abdomen. CT/CTA Chest W/WO Contrast IMPRESSION: No demonstrated pulmonary embolism or arterial dissection. Electronically Signed: Nagi Becker DO at 13:21 EST Tel [phone], Service support ,
--- NOTE | 2019-04-03 15:04 | HP.PCM_ITS ---
History of Present Illness Date of Admission: 04/03/19 Chief Complaint: short of breath. The patient is a 73 year old F who for the past week has been short of breath with exertion. Associated palpitations. Symptoms progressed and she presented to ED today. In ED she had afib with RVR, HR ranging from 110s-120s. She had an elevated D-Dimer, so a CTA chest was performed, which was normal. She continued to be tachycardic and tachypneic. Decision was made to admit given her symptoms. Patient states that she has put on 5 # in the past week. Increased ankle edema. She was on furosemide BID, but the she changed it to daily.[] Past Medical History Past Medical History (Chronic Problems): Chronic Problems (Last Reviewed 03/08/19 @ 11:01 by Shania Pinon) Old myocardial infarction (Chronic) Paroxysmal atrial fibrillation (Chronic) Nonrheumatic mitral (valve) insufficiency (Chronic) Nonrheumatic mitral (valve) prolapse (Chronic) Recurrent pancreatitis (Chronic) Hyperlipidemia (Chronic) Familial combined hyperlipidemia (Chronic) Morbid obesity with BMI of 40.0-44.9, adult (Chronic) Benign hypertension (Chronic) Medical History: Medical History (Last Reviewed 04/03/19 @ 15:08 by Mitch Hernandez DO) Old myocardial infarction (Chronic) I25.2 Paroxysmal atrial fibrillation (Chronic) I48.0 Nonrheumatic mitral (valve) insufficiency (Chronic) I34.0 Nonrheumatic mitral (valve) prolapse (Chronic) I34.1 Recurrent pancreatitis (Chronic) K86.1 Hyperlipidemia (Chronic) E78.5 Familial combined hyperlipidemia (Chronic) E78.4 Morbid obesity with BMI of 40.0-44.9, adult (Chronic) E66.01, Z68.41 Benign hypertension (Chronic) I10 Gout M10.9 Diverticulitis K57.92 Fibromyalgia M79.7 GERD (gastroesophageal reflux disease) K21.9 Rheumatoid arthritis M06.9 Spinal stenosis of lumbar region M48.061 Screening for intestinal cancer (Resolved) Z12.10 Allergies Penicillins Allergy (Verified 03/08/19 10:56) Hives atorvastatin [From Lipitor] Adverse Reaction (Severe, Verified 03/08/19 10:56) Elevated LFT Home Medications: Ambulatory Orders Medication Instructions Recorded Aspirin E.C. [Ecotrin] 81 mg PO DAILY@0800 tab 07/27/15 Esomeprazole Mag Trihydrate 20 mg PO DAILY 08/14/16 [Nexium] Ranitidine [Zantac] 300 mg PO QHS 08/14/16 Oxycodone HCl/Acetaminophen 1 tab PO BID 05/01/17 [Percocet 5-325] allopurinol 100 mg tablet 100 mg PO DAILY 01/25/19 apixaban 5 mg tablet 5 mg PO BID #60 tab 01/26/19 metoprolol tartrate 50 mg tablet 50 mg PO BID #180 tab 01/26/19 furosemide 40 mg tablet 40 mg PO QAM #30 tab 02/09/19 potassium chloride 20 mEq 20 meq PO DAILY #30 tab 02/15/19 tablet,extended release clobetasol 0.05 % topical cream 1 applic TOPICAL .COMPLEX #15 g 03/08/19 diltiazem HCl 180 mg 180 mg PO BID cap 03/08/19 capsule,extended release 24 hr ezetimibe 10 mg tablet 10 mg PO QHS 03/08/19 lisinopril 10 mg tablet 10 mg PO DAILY tab 03/08/19 Surgical History: Surgical History (Last Reviewed 04/03/19 @ 15:08 by Mitch Hernandez DO) H/O endoscopic retrograde cholangiopancreatography Z98.890 with removal of stent and biliary sludge History of appendectomy Z90.49 History of back surgery Z98.890 History of cardiac radiofrequency ablation Onset Date: ~10/2008 Z98.890 History of cholecystectomy Z90.49 History of left knee replacement Z96.652 S/P lumbar fusion Z98.1 Surgical History: appendectomy, cataract, cholecystectomy, total knee arthroplasty - left, - - Foot surgery, carpal tunnel surgery Psychiatric History: No pertinent psych hx 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 Lives: Alone Smoking Status: Never smoker Alcohol: None Drugs: None - *Family History Maternal Family History: Family History (Last Reviewed 04/03/19 @ 15:08 by Mitch Hernandez DO) Sister Hypertension Other Arthritis Cancer Diabetes History Items: Renal Disease - age 70 Paternal Family History: Family History (Last Reviewed 04/03/19 @ 15:08 by Mitch Hernandez DO) Sister Hypertension Other Arthritis Cancer Diabetes History Items: - - age 45 cirrhosis Review of Systems Constitutional: Denies: Anorexia, Fever Eyes: Denies: Blurred vision, Double vision HEENT: Denies: Head Aches, Sinus Congestion, Sinus Drainage Cardiovascular: Reports: Chest Pain, Edema Respiratory: Reports: Shortness of Breath, Shortness of breath upon exertion Gastrointestinal: Denies: Abdominal Pain, Nausea, Vomiting Genitourinary: Denies: Dysuria Musculoskeletal: Denies: Joint Pain, Joint Tenderness Skin: Denies: Rash, Wounds Neurological: Denies: Numbness, Tingling, Focal weakness Psychiatric: Denies: Anxiety, Depression Hematologic/ Lymphatic: Denies: Easy Bruising, Easy Bleeding, Hx of blood clot Comment: All review systems are otherwise negative except for as mentioned above and in HPI. VTE Information - Inpt Only VTE Present on Admission: No VTE Mechan Device Prophylaxis: None VTE Pharm Prophylaxis ordered?: Yes Patient Problems: Active and Suspected Problems (Last Reviewed 03/08/19 @ 11:01 by Shania Pinon) Urinary tract infection (Acute) Sepsis (Acute) Sinus tachycardia by electrocardiogram (Acute) Dyspnea (Acute) - Physical Exam Vitals/I&O's: Vital Signs Temp Pulse Resp BP Pulse Ox 37.4 C H 118 H 22 H 140/86 H 99 04/03/19 07:55 04/03/19 14:00 04/03/19 09:57 04/03/19 14:00 04/03/19 14:00 Oxygen Flow Rate (L/min) 2 Oxygen Delivery Method Nasal Cannula Weight: 109.6 kg Body Mass Index (BMI) 42.7 Intake and Output for Last 24 Hours 04/01/19 04/02/19 04/03/19 23:59 23:59 23:59 Intake Total 200 / 200 Balance 200 / 200 General: Alert, Cooperative, No apparent distress HEENT: Atraumatic, Normocephalic Oral: Moist Mucosa, No Gingival or Mucosal Lesions/ Ulcerations Neck: No Nodes, Trachea Midline Lungs: Clear to auscultation, Normal air movement, No rhonchi, No wheeze, No rales Cardiovascular: Irregular Rate, Tachycardic Abdomen: Bowel Sounds Present, Soft, Non Tender, Non-Distended, Obese Extremities: No Calf Tenderness, Edema - Ankle and foot edema bilaterally. Skin: No rashes, No breakdown Musculoskeletal: No Tenderness to Palpation of Joints or Extremities, No Muscle Wasting Lymphatic: No Cervical, Supraclavicular, or Inguinal Adenopathy Neurological: Neuro grossly intact, Muscle tone normal Psych/Mental Status: Normal Affect, Appropriate Laboratory Results 04/03/19 08:20: WBC 15.2 H, RBC 4.22, Hgb 12.5, Hct 38.5, MCV 91.2, MCH 29.6, MCHC 32.5, RDW Std Deviation 52.2 H, RDW Coeff of Patel 15.9 H, Plt Count 131 L, MPV 10.4, Immature Gran % (Auto) 0.900, Neut % (Auto) 91.7 H, Lymph % (Auto) 2.0 L, [place] % (Auto) 5.3, Eos % (Auto) 0.0, Baso % (Auto) 0.1, Absolute Neuts (auto) 14.0 H, Absolute Lymphs (auto) 0.31 L, Nucleated RBC % 0, Platelet Estimate ADEQUATE, RBC Morphology NORM C+C 04/03/19 08:20: Sodium 139, Potassium 4.2, Chloride 110 H, Carbon Dioxide 24.0, Anion Gap 5, BUN 31 H, Creatinine 1.27 H, Estim Creat Clear Calc 31.66, Est GFR (MDRD) Af Amer 53 L, Est GFR (MDRD) Non-Af 44 L, BUN/Creatinine Ratio 24.4 H, Glucose 139 H, Calcium 9.1, Troponin I < 0.015 04/03/19 08:20: Lactic Acid 1.6 04/03/19 08:20: B-Natriuretic Peptide 133.4 H 04/03/19 08:20: D-Dimer Quant (PE/DVT) 1.58 H* 04/03/19 09:28: Urine Color Yellow, Urine Clarity Cloudy, Urine pH 6.0, Ur Specific [place] 1.015, Urine Protein 100 H, Urine Glucose (UA) Normal, Urine Ketones Negative, Urine Occult Blood 250 H, Urine Nitrite Negative, Urine Bilirubin Negative, Urine Urobilinogen Normal, Ur Leukocyte Esterase 500 H, Urine RBC 10-25 SEEN, Urine WBC 25-50 SEEN, Ur Squamous Epith Cells 0-5 SEEN, Urine Bacteria 1+, Urine Mucus 0 SEEN The angiogram of the chest was personally reviewed and showed no pulmonary edema, no infiltrate and no pulmonary embolism. Assessment/Plan All Active Problems (Last Reviewed 03/08/19 @ 11:01 by Shania Pinon) Urinary tract infection (Acute) Sepsis (Acute) Sinus tachycardia by electrocardiogram (Acute) Lichen sclerosus (Acute) Dyspnea (Acute) Orthopnea (Acute) Acute bronchitis (Resolved) Chills (Resolved) Episodic confusion (Resolved) Fall at home (Resolved) Leukocytosis (Resolved) Malaise (Resolved) Screening for intestinal cancer (Resolved) Sepsis (Resolved) Urinary tract infection (Resolved) 1. Atrial fibrillation with RVR * Rate is variable between 110s to 120s but goes higher with exertion * Patient on metoprolol 50 mg twice daily at home, will increase that to 75 twice daily and have as needed IV metoprolol for sustained heart rates greater than 120 * Patient had an echocardiogram back in November 25, 2018 that showed ejection fraction of 70%. * Continue with diltiazem * Continue with apixaban 2. Acute heart failure with preserved ejection fraction * EF as above * Will increase the patient's Lasix from 40 daily to twice daily. * Patient endorses that her weight has gone up over the past week or so to 5 pounds. 3. Suspected debility * Unclear if is just increased weakness or just due to symptoms from her atrial fibrillation and CHF * PT and OT evaluate and treat 4. Advanced care planning: Discussed with the patient. Patient wishes to be full CODE STATUS. 5. VTE prophylaxis: Low risk as patient is already anticoagulated. Code Visit Inpatient E&M: 40088 Init Hosp L3
--- NOTE | 2019-04-03 15:05 | NURSING ---
PCU UTI, SEPSIS, DYSPNEA WITH MINIMAL EXERTION, AFIB JANKI
[2019-04-03] MEDS: Furosemide 40 MG Tablet PO (17:47)
[2019-04-03] MEDS: 0.9% Saline Lock 10 ML Syringe IV (17:47)
[2019-04-03] MEDS: oxyCODONE 5 MG Tablet PO (22:15)
[2019-04-03] MEDS: APIXABAN 5 MG TABLET PO (22:20)
[2019-04-03] MEDS: dilTIAZem CD 180 MG Capsule PO (22:20)
[2019-04-03] MEDS: Metoprolol Tartrate 50 MG Tablet 75 MG PO (22:20)
[2019-04-03] MEDS: Ezetimibe 10 MG Tablet PO (22:21)
--- NOTE | 2019-04-03 23:33 | PCM.PN.BLA ---
Progress Note Blood culture with gram-negative rods in 2 out of 2 bottles. Will start patient on ceftriaxone. Of note patient is allergic to penicillin. Allergy is hives. Discussed with nurse to watch patient closely as patient will be started on ceftriaxone. STROKE Vital Signs/Narrative: Vital Signs Temp Pulse Resp BP Pulse Ox 04/03/19 22:20 103 H 127/68 H 04/03/19 22:00 98.1 F 103 H 20 H 127/68 H 98
[2019-04-04] VITALS (11 sets, daily range): BP systolic 109–138; BP diastolic 58–106; PULSE 67–110; RESP 16–20; TEMP 36.4–36.9; O2SAT 96–99
[2019-04-04] MEDS: Ceftriaxone 1 GM/50 ML BAG IV ×2 (00:29→09:39)
[2019-04-04] MEDS: 0.9% Saline Lock 10 ML Syringe IV ×5 (00:30→21:53)
[2019-04-04 06:31] LABS: Anion Gap 5 (5-15); BUN 28 mg/dL (7-18); BUN/Creat Ratio 24.3 RATIO (10-20); Calcium,Total 8.9 mg/dL (8.5-10.1); Chloride 107 mmol/L (98-107); Creatinine, Serum 1.15 mg/dL (0.55-1.02); EST Glomerular Filtration Rate 49 mL/min (>60); Est Glom Filt Rate - Afr Amer 59 mL/min (>60); Estimated Creatinine Clearance 34.96 ml/min; Glucose 134 mg/dL (74-106); Potassium 4.2 mmol/L (3.5-5.1); Sodium Level 137 mmol/L (136-145)
[2019-04-04] MEDS: Aspirin E.C. 81 MG Tablet PO (07:39)
[2019-04-04] MEDS: oxyCODONE 5 MG Tablet PO ×2 (09:34→21:50)
[2019-04-04] MEDS: Metoprolol Tartrate 50 MG Tablet 75 MG PO ×2 (09:34→21:45)
[2019-04-04] MEDS: APIXABAN 5 MG TABLET PO ×2 (09:35→21:48)
[2019-04-04] MEDS: Allopurinol 100 MG Tablet PO (09:35)
[2019-04-04] MEDS: Lisinopril 10 MG Tablet PO (09:35)
[2019-04-04] MEDS: Pantoprazole Sodium 20 MG Tablet PO (09:36)
[2019-04-04] MEDS: Furosemide 40 MG Tablet PO ×2 (09:36→17:19)
[2019-04-04] MEDS: dilTIAZem CD 180 MG Capsule PO ×2 (09:36→21:45)
--- NOTE | 2019-04-04 10:23 | PCM.PN.HOSP ---
Patient Problems: Active and Suspected Problems (Last Reviewed 04/03/19 @ 15:08 by Mitch Hernandez DO) Urinary tract infection (Acute) Sepsis (Acute) Sinus tachycardia by electrocardiogram (Acute) Dyspnea (Acute) Reason for Visit: afib Subjective: still symptomatic with shortness of breath. Started on CTX last night d/t bacteremia. Vitals/I&O's: Vital Signs Temp Pulse Resp BP Pulse Ox 36.4 C L 110 H 18 138/106 H 99 04/04/19 09:25 04/04/19 09:34 04/04/19 09:25 04/04/19 09:34 04/04/19 09:25 Oxygen Flow Rate (L/min) 3 Oxygen Delivery Method Nasal Cannula Weight: 107 kg Body Mass Index (BMI) 41.8 Intake and Output for Last 24 Hours 04/02/19 04/03/19 04/04/19 23:59 23:59 23:59 Intake Total 300 / 740 540 / 540 Output Total 100 / 750 1000 / 1000 Balance 200 / -10 -460 / -460 General: Alert, Cooperative, No apparent distress HEENT: Atraumatic, Normocephalic Oral: Moist Mucosa, No Gingival or Mucosal Lesions/ Ulcerations Neck: No Nodes, Trachea Midline Lungs: Clear to auscultation, Normal air movement, No rhonchi, No wheeze, No rales Cardiovascular: Irregular Rate, Tachycardic Abdomen: Bowel Sounds Present, Soft, Non Tender, Non-Distended, No Hepato-splenomegaly Extremities: No Calf Tenderness, Edema Skin: No rashes, No breakdown Psych/Mental Status: Appropriate, Anxious Microbiology Past 72 Hours 04/03/19 10:53 Blood Culture (Wb) - Anticubital Right Blood Culture - Preliminary 04/03/19 10:53 Blood Culture (Wb) - Anticubital Left Blood Culture - Preliminary Laboratory Results 04/03/19 08:20: D-Dimer Quant (PE/DVT) 1.58 H* 04/03/19 15:45: Troponin I < 0.015 04/03/19 18:05: Troponin I < 0.015 04/04/19 05:40: Sodium 137, Potassium 4.2, Chloride 107, Carbon Dioxide 25.0, Anion Gap 5, BUN 28 H, Creatinine 1.15 H, Estim Creat Clear Calc 34.96, Est GFR (MDRD) Af Amer 59 L, Est GFR (MDRD) Non-Af 49 L, BUN/Creatinine Ratio 24.3 H, Glucose 134 H, Calcium 8.9 Current Medications Acetaminophen (Tylenol) 650 mg PO Q6H PRN PRN PRN Reason: Pain Score 1-10/Temp > 100.7 F Allopurinol (Zyloprim) 100 mg PO DAILY [facility] Last Admin: 04/04/19 09:35 Dose: 100 mg Documented by: Apixaban (Eliquis) 5 mg PO BID [facility] Last Admin: 04/04/19 09:35 Dose: 5 mg Documented by: Aspirin (Ecotrin) 81 mg PO DAILY@0800 [facility] Last Admin: 04/04/19 07:39 Dose: 81 mg Documented by: Clobetasol Propionate (Temovate Cream (Bkc)) 1 applic TOPICAL DAILY PRN PRN; Protocol PRN Reason: ITCHING Diltiazem HCl (Cardizem Cd) 180 mg PO BID [facility] Last Admin: 04/04/19 09:36 Dose: 180 mg Documented by: Ezetimibe (Zetia) 10 mg PO QHS [facility] Last Admin: 04/03/19 22:21 Dose: 10 mg Documented by: Furosemide (Lasix) 40 mg PO BIDLX [facility] Last Admin: 04/04/19 09:36 Dose: 40 mg Documented by: Glucagon () 1 mg IM .X1 PRN PRN Reason: Hypoglycemia Dextrose (Dextrose 10%-Water) 250 mls @ 999 mls/hr IV .Q16M PRN; Protocol PRN Reason: HYPOGLYCEMIA Ceftriaxone Sodium (Rocephin) 1 gm in 50 mls @ 100 mls/hr IV Q24 [facility] Last Infusion: 04/04/19 10:09 Dose: Infused Documented by: Lisinopril (Zestril) 10 mg PO DAILY [facility] Last Admin: 04/04/19 09:35 Dose: 10 mg Documented by: Metoprolol Tartrate (Lopressor (Beta Ramona)) 75 mg PO BID [facility] Last Admin: 04/04/19 09:34 Dose: 75 mg Documented by: Metoprolol Tartrate (Lopressor (Beta Ramona)) 5 mg IV Q6H PRN PRN Reason: hr sustained greater than 120 Oxycodone HCl (Oxyir) 5 mg PO BID [facility] Last Admin: 04/04/19 09:34 Dose: 5 mg Documented by: Pantoprazole Sodium (Protonix) 20 mg PO DAILY [facility] Last Admin: 04/04/19 09:36 Dose: 20 mg Documented by: [facility] Admin: 04/04/19 07:39 Dose: 20 meq Documented by: Sodium Chloride () 10 - 40 ml IV UD PRN PRN Reason: SALINE FLUSH Last Admin: 04/04/19 00:39 Dose: 10 ml Documented by: STROKE Vital Signs/Narrative: Vital Signs Temp Pulse Resp BP Pulse Ox 04/04/19 09:34 110 H 138/106 H 04/04/19 09:25 36.4 C L 110 H 18 138/106 H 99 04/04/19 07:00 102 H Medical Necessity - Tobacco Use Smoking Status: Never smoker Assessment/Plan All Active Problems (Last Reviewed 04/03/19 @ 15:08 by Mitch Hernandze DO) Urinary tract infection (Acute) Sepsis (Acute) Sinus tachycardia by electrocardiogram (Acute) Lichen sclerosus (Acute) Dyspnea (Acute) Orthopnea (Acute) Acute bronchitis (Resolved) Chills (Resolved) Episodic confusion (Resolved) Fall at home (Resolved) Leukocytosis (Resolved) Malaise (Resolved) Screening for intestinal cancer (Resolved) Sepsis (Resolved) Urinary tract infection (Resolved) 1. Atrial fibrillation with RVR Rate is variable between 110s to 120s but goes higher with exertion. Overall, improved. Patient on metoprolol 50 mg twice daily at home, will increase that to 75 twice daily and have as needed IV metoprolol for sustained heart rates greater than 120 Patient had an echocardiogram back in November 25, 2018 that showed ejection fraction of 70%. Continue with diltiazem Continue with apixaban Consult Cardiology. Has been told by Dr. Macdonald that she may require another DCCV. 2. Acute heart failure with preserved ejection fraction EF as above Will increase the patient's Lasix from 40 daily to twice daily. Patient endorses that her weight has gone up over the past week or so to 5 pounds. continue diuresis 3. Bacteremia 2/2 sets + for GNR UA minimally abnormal and I would not qualify as infected. given that patient was septic on admission, will change abx to aztreonam (PCN allergy) source of bacteremia not ID'd yet 4. Sepsis POA, but not identified until today because no obvious source of infection could be ID'd until today with the positive cultures. 5. Suspected debility Unclear if is just increased weakness or just due to symptoms from her atrial fibrillation and CHF PT and OT evaluate and treat 6. Advanced care planning: Discussed with the patient. Patient wishes to be full CODE STATUS. 7. VTE prophylaxis: Low risk as patient is already anticoagulated. Code Visit Inpatient E&M: 45741 Subs Hosp L2
[2019-04-04 10:53] LABS: Thyroid Stim Hormone (TSH) 0.58 uIU/mL (0.358-3.74)
--- NOTE | 2019-04-04 12:06 | PCM.CONS.C ---
Reason for Consult Date of Consultation: 04/04/19 Reason for Consultation: A. fib History of Present Illness: The patient is a 73 year old F who for the past week has been short of breath with exertion. Associated palpitations. Symptoms progressed and she presented to ED today. In ED she had afib with RVR, HR ranging from 110s-120s. She had an elevated D-Dimer, so a CTA chest was performed, which was normal. She continued to be tachycardic and tachypneic. Decision was made to admit given her symptoms. Patient states that she has put on 5 # in the past week. Increased ankle edema. She was on furosemide BID, but the she changed it to daily. Patient has history of paroxysmal A. fib status post ablation about 10 years ago. Patient states that even when her heart rate is controlled, when she is in A. fib she has significant dyspnea on exertion. She is on Eliquis but she had to stop it for about a week, 3 weeks ago for back injections. Review of systems: All systems reviewed. All else is negative except that in HPI. Past Medical History Allergies/Adverse Reactions: Allergies Penicillins Allergy (Verified 03/08/19 10:56) Hives atorvastatin [From Lipitor] Adverse Reaction (Severe, Verified 03/08/19 10:56) Elevated LFT Home Medications: Ambulatory Orders Medication Instructions Recorded Aspirin E.C. [Ecotrin] 81 mg PO DAILY@0800 tab 07/27/15 Esomeprazole Mag Trihydrate 20 mg PO DAILY 08/14/16 [Nexium] Oxycodone HCl/Acetaminophen 1 tab PO BID 05/01/17 [Percocet 5-325] allopurinol 100 mg tablet 100 mg PO DAILY 01/25/19 apixaban 5 mg tablet 5 mg PO BID #60 tab 01/26/19 metoprolol tartrate 50 mg tablet 50 mg PO BID #180 tab 01/26/19 furosemide 40 mg tablet 40 mg PO QAM #30 tab 02/09/19 diltiazem HCl 180 mg 180 mg PO BID cap 03/08/19 capsule,extended release 24 hr ezetimibe 10 mg tablet 10 mg PO QHS 03/08/19 lisinopril 10 mg tablet 10 mg PO DAILY tab 03/08/19 Clobetasol/Niacinamide [Clobetasol 60 gm TP DAILY 04/03/19 0.05%-Niacinamid 4%] Furosemide [Lasix] 20 mg PO DAILY 04/03/19 Potassium Chloride 20 meq PO QODAY 04/03/19 Past Medical History (Chronic Problems): Chronic Problems (Last Reviewed 04/03/19 @ 15:08 by Mitch Hernandez DO) Old myocardial infarction (Chronic) Paroxysmal atrial fibrillation (Chronic) Nonrheumatic mitral (valve) insufficiency (Chronic) Nonrheumatic mitral (valve) prolapse (Chronic) Recurrent pancreatitis (Chronic) Hyperlipidemia (Chronic) Familial combined hyperlipidemia (Chronic) Morbid obesity with BMI of 40.0-44.9, adult (Chronic) Benign hypertension (Chronic) Surgical History: appendectomy, cataract, cholecystectomy, total knee arthroplasty - left, - - Foot surgery, carpal tunnel surgery Psychiatric History: No pertinent psych hx 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 history - *Family History Maternal Family History: Family History (Last Reviewed 04/03/19 @ 15:08 by Mitch Hernandez DO) Sister Hypertension Other Arthritis Cancer Diabetes History Items: Renal Disease - age 70 Paternal Family History: Family History (Last Reviewed 04/03/19 @ 15:08 by Mitch Hernandez DO) Sister Hypertension Other Arthritis Cancer Diabetes History Items: - - age 45 cirrhosis Lives: Alone Smoking Status: Never smoker Alcohol: None Drugs: None Objective: Vital Signs Temp Pulse Resp BP Pulse Ox 97.5 F L 106 H 18 138/106 H 99 04/04/19 09:25 04/04/19 11:00 04/04/19 09:25 04/04/19 09:34 04/04/19 09:25 Oxygen Flow Rate (L/min) 3 Oxygen Delivery Method Nasal Cannula Weight: 235 lb 14.314 oz Body Mass Index (BMI) 41.8 Intake and Output for Last 24 Hours 04/02/19 04/03/19 04/04/19 23:59 23:59 23:59 Intake Total 300 / 740 790 / 790 Output Total 100 / 750 1500 / 1500 Balance 200 / -10 -710 / -710 General: Awake, Alert, Oriented x 3 HEENT: Atraumatic Oral: Moist Mucosa Neck: Supple Lungs: Clear to auscultation Cardiovascular: Irregular Rhythm Abdomen: Soft Extremities: Trace RLE Edema, Trace LLE Edema Skin: No Rashes Psych/Mental Status: Appropriate 04/03/19 15:45: Troponin I < 0.015 04/03/19 18:05: Troponin I < 0.015 04/04/19 05:40: Sodium 137, Potassium 4.2, Chloride 107, Carbon Dioxide 25.0, Anion Gap 5, BUN 28 H, Creatinine 1.15 H, Est GFR (MDRD) Af Amer 59 L, Est GFR (MDRD) Non-Af 49 L, BUN/Creatinine Ratio 24.3 H, Glucose 134 H, Calcium 8.9 Rhythm: EKG: ECHO: Stress Test: Cardiac Cath: PCI: CT Surgery: Holter monitor: EPS: PPM: CXR: Chest CT Scan: Assessment/Plan 1. Atrial fibrillation: Patient is symptomatic with A. fib even with rate control. She has not been on anticoagulation for a month without interruption. So we may have to wait for cardioversion. At that time we may have to even consider oral antiarrhythmic agent to maintain her in sinus rhythm. At this time we will control her rate with her current medications and monitor her overnight. If her rate remains controlled she could potentially be discharged home tomorrow and see Dr. Macdonald as an outpatient at which time depending on whether she is in sinus rhythm or not she could be scheduled for cardioversion.
[2019-04-04] MEDS: Ezetimibe 10 MG Tablet PO (21:47)
[2019-04-05] VITALS (8 sets, daily range): BP systolic 111–126; BP diastolic 56–68; PULSE 76–104; RESP 16; TEMP 36.6–36.7; O2SAT 82–99
[2019-04-05] MEDS: 0.9% Saline Lock 10 ML Syringe IV (05:10)
[2019-04-05 05:15] LABS: Absolute Lymphocyte Count 0.62 X10^3/uL (0.83-4.51); Absolute Neutrophil Count 8.5 X10^3/uL (2.0-7.7); Basophil# 0.02 X10^3/uL; Basophil% 0.2 % (0-1); Eosinophil# 0.02 X10^3/uL; Eosinophils% 0.2 % (0-5); Hemoglobin 11.3 g/dL (12.0-15.0); Lymphocyte # 0.62 X10^3/ul (4.0); Mean Corp Hgb Conc 31.4 g/dL (32-36); Mean Corpuscular Hgb 28.9 pg (27.0-32.0); Mean Corpuscular Volume 92.1 fL (81-99); Mean Platelet Vol. 10.3 fl (6.2-12.0); Monocyte# 1.04 X10^3/uL; Monocyte% 10.1 % (0-10); NRBC Flagged by Analyzer 0 % (0-5); Neutrophil # 8.52 X10^3/uL (2.7-7.7); Neutrophil % 82.7 % (47-70); Platelet Count 141 K/mm3 (150-450); RBC Distribution Width CV 15.7 % (11.6-14.6); RBC Distribution Width SD 52.7 fl (35.1-43.9); Red Blood Count 3.91 M/mm3 (4.2-5.4); White Blood Count 10.3 K/mm3 (4.4-11.0)
[2019-04-05 05:54] LABS: Anion Gap 7 (5-15); BUN 35 mg/dL (7-18); BUN/Creat Ratio 25.4 RATIO (10-20); Calcium,Total 8.6 mg/dL (8.5-10.1); Chloride 108 mmol/L (98-107); Creatinine, Serum 1.38 mg/dL (0.55-1.02); EST Glomerular Filtration Rate 40 mL/min (>60); Est Glom Filt Rate - Afr Amer 48 mL/min (>60); Estimated Creatinine Clearance 29.14 ml/min; Glucose 159 mg/dL (74-106); Sodium Level 136 mmol/L (136-145)
[2019-04-05] MEDS: Aspirin E.C. 81 MG Tablet PO (08:01)
[2019-04-05] MEDS: oxyCODONE 5 MG Tablet PO (09:28)
[2019-04-05] MEDS: dilTIAZem CD 180 MG Capsule PO (09:29)
[2019-04-05] MEDS: Furosemide 40 MG Tablet PO (09:29)
[2019-04-05] MEDS: APIXABAN 5 MG TABLET PO (09:29)
[2019-04-05] MEDS: Pantoprazole Sodium 20 MG Tablet PO (09:30)
[2019-04-05] MEDS: Lisinopril 10 MG Tablet PO (09:30)
[2019-04-05] MEDS: Allopurinol 100 MG Tablet PO (09:30)
[2019-04-05] MEDS: Metoprolol Tartrate 50 MG Tablet 75 MG PO (09:30)
--- NOTE | 2019-04-05 11:43 | CASEMGMT ---
RN CM Assessment Introduced role of RN CM to patient.? Patient is alert, oriented and able?to participate in RN CM Assessment. ?Care providers, pharmacy, and demographics verified. Presentation: SOB with exertion Admit Dx: Afib RVR, Bacteremia Re-Admit: No Barriers/Issues: Patient states she lives alone and concern/issue when she is not feeling well and at times some things become difficult for her such as bringing in groceries and has to pay someone to help her bring them in or for assistance with care in the home. States has friends/family she could ask but does not like to bother them with that. This blog writer discussed nursing home planning and encouraged her to check to see if she qualifies for [facility] and provided [facility] number, aware if she qualifies that it open additional benefits for her such as Aide services, transportation, placement. Patient denies being a [place] or receiving VA services. States interest in changing her diet habits at home. Encouraged her to s/w provider about possible [employer]/Nutrition referral and/or education. PCP: Miles Dawson Specialists: Cardio- Dr Macdonald, Pain Management- Dr Resendiz, Rheum- Dr Estrada, Uro- Dr Dickey Preferred Pharmacy: [facility] Insurance: [employer], [employer] Benefit:?Yes ?LNOK: Sister Barb Goodson and sister Chelsea Keane LW/HPOA: [facility] has both completed and made aware not on file at [facility]-if brought in will scan a copy on file. [facility] both primary agents on HPOA are both sisters Barb Goodson and Chelsea Keane Living Arrangements:? Lives alone in a Senior housing on ground level with no steps to enter home. ADL?s: Independent with ambulation and ADLs. States does use a cane or mostly 2ww when she does not feel good. Transportation: Patient drives, becomes an issue if she is not feeling well DME: Grab bars in shower, BP machine, Fww, Cane HHC: None SNF: None Goal: Home and states that she is still feeling a little more weaker than normal and unsure of needs upon DC as per physician recommendations. Discussed PT HHC vs Outpatient and patient states if additional Tx recommended would most likely want Outpatient PT as she still feels she can currently go outside of the home and not home bound. Denies any concerns, issues, needs or questions at this time with DC planning. Aware CM remains available for any emerging needs. DC PLAN: Home with possible Outpatient PT and RNCM to f/u on O2 status for possible O2 need. Maddie Ohara RNCM
--- NOTE | 2019-04-05 11:49 | PCM.DC ---
- Discharge Diagnoses Current Active Problems: Current Active and Chronic Problems (Last Reviewed 04/03/19 @ 15:08 by Mitch Hernandez DO) Urinary tract infection (Acute) Sepsis (Acute) Sinus tachycardia by electrocardiogram (Acute) Dyspnea (Acute) You will use the following diet at home:: Cardiac Your food should be the consistency of: Regular Your liquids should be the consistency of: Regular/Thin Discharge Activity: Return to Normal Activity Additional Instructions: You need to have your kidney profile (BMP) checked in the office this week. You need to check your weight daily, and if you notice a 2 lb gain in a 24 hour period or 3 lb gain in a week you need to call your doctor for further instructions regarding your medication, lasix. Allergies/Adverse Reactions: Allergies Penicillins Allergy (Verified 03/08/19 10:56) Hives atorvastatin [From Lipitor] Adverse Reaction (Severe, Verified 03/08/19 10:56) Elevated LFT Medications to take at Discharge Aspirin E.C. [Ecotrin] 81 mg PO DAILY@0800 tab 07/27/15 Esomeprazole Mag Trihydrate [Nexium] 20 mg PO DAILY 08/14/16 Oxycodone HCl/Acetaminophen [Percocet 5-325] 1 tab PO BID 05/01/17 allopurinol 100 mg tablet 100 mg PO DAILY 01/25/19 apixaban 5 mg tablet 5 mg PO BID #60 tab 01/26/19 diltiazem HCl 180 mg capsule,extended release 24 hr 180 mg PO BID cap 03/08/19 ezetimibe 10 mg tablet 10 mg PO QHS 03/08/19 lisinopril 10 mg tablet 10 mg PO DAILY tab 03/08/19 Clobetasol/Niacinamide [Clobetasol 0.05%-Niacinamid 4%] 60 gm TP DAILY 04/03/19 Acetaminophen [Tylenol Tablet] 650 mg PO Q6H PRN PRN tablet 04/05/19 Furosemide [Lasix] 40 mg PO BIDLX #60 tab 04/05/19 Metoprolol Tartrate [Lopressor (beta lenora)] 75 mg PO BID #90 tab 04/05/19 Potassium Chloride [K-Dur] 20 meq PO DAILYCM #30 tab 04/05/19 Smz/Tmp Ds [Bactrim Ds] 1 tab PO X1 #1 tab 04/05/19 Sulfamethoxazole/Trimethoprim [Bactrim 400-80 mg Tablet] 1 ea PO Q12H #22 tab 04/05/19 The following prescriptions were given: Sulfamethoxazole/Trimethoprim [Bactrim 400-80 mg Tablet] 1 ea PO Q12H #22 tab Transmission Status: Pending to [facility] Smz/Tmp Ds [Bactrim Ds] 1 tab PO X1 #1 tab Transmission Status: Pending to [facility] Potassium Chloride [K-Dur] 20 meq PO DAILYCM #30 tab Transmission Status: Pending to [facility] Furosemide [Lasix] 40 mg PO BIDLX #60 tab Transmission Status: Pending to [facility] Metoprolol Tartrate [Lopressor (beta lenora)] 75 mg PO BID #90 tab Transmission Status: Pending to [facility] Primary Care Physician: Miles Reid MD [Primary Care Provider] - Please follow up with your Primary Care Physician in: 1-2 weeks Test Results: Test results from this visit will be discussed in further detail at your follow-up appointment, if applicable. Please Follow Up With: Miles Macdonald MD When: as directed Please Follow Up With: Randell Dickey MD When: 3-4 weeks Proposed Discharge Date: 04/05/19
--- NOTE | 2019-04-05 12:43 | CASEMGMT ---
Patient has a Healthcare Power of [employer] and a Healthcare Living Will. She is aware they are not on file and to bring a copy in when able. Tabatha MIDDLETON MSW
--- NOTE | 2019-04-05 12:48 | PHA.DC.MC ---
Pharmacy Service has performed discharge medication reconciliation and counseling for this patient. 1. POTASSIUM CHLORIDE 20MEQ PO DAILYCM 2. BACTRIM DS 1T PO X 1 DOSE, THEN STARTING THE NEXT DAY BACTRIM SS Q12H X 11 DAYS The patient's discharge medication list was reviewed for discrepancies and discrepancies were resolved. Home Medications Aspirin E.C. [Ecotrin] 81 mg PO DAILY@0800 tab 07/27/15 Esomeprazole Mag Trihydrate [Nexium] 20 mg PO DAILY 08/14/16 Oxycodone HCl/Acetaminophen [Percocet 5-325] 1 tab PO BID 05/01/17 allopurinol 100 mg tablet 100 mg PO DAILY 01/25/19 apixaban 5 mg tablet 5 mg PO BID #60 tab 01/26/19 diltiazem HCl 180 mg capsule,extended release 24 hr 180 mg PO BID cap 03/08/19 ezetimibe 10 mg tablet 10 mg PO QHS 03/08/19 lisinopril 10 mg tablet 10 mg PO DAILY tab 03/08/19 Clobetasol/Niacinamide [Clobetasol 0.05%-Niacinamid 4%] 60 gm TP DAILY 04/03/19 Acetaminophen [Tylenol Tablet] 650 mg PO Q6H PRN PRN tab 04/05/19 Furosemide [Lasix] 40 mg PO BIDLX #60 tab 04/05/19 Metoprolol Tartrate [Lopressor (beta lenora)] 75 mg PO BID #90 tab 04/05/19 Potassium Chloride [K-Dur] 20 meq PO DAILYCM #30 tab 04/05/19 Smz/Tmp Ds [Bactrim Ds] 1 tab PO X1 #1 tab 04/05/19 Sulfamethoxazole/Trimethoprim [Bactrim 400-80 mg Tablet] 1 ea PO Q12H #22 tab 04/05/19 The patient was counseled on the following discharge medications and changes in medications for homegoing were reviewed. The Reason for Use, instructions for use, and potential side effects were reviewed for all new medications. The patient's questions regarding all of their medications were answered. The patient was able to verbally demonstrate an understanding of their discharge medications.
[2019-04-05] MEDS: Ceftriaxone 1 GM/50 ML BAG IV (14:04)
--- NOTE | 2019-04-05 14:12 | CASEMGMT ---
Pt does qualify for home oxygen at this time and after being provided with a list of local DME companies, pt chooses [employer] for her home oxygen at this time. Referral faxed to [facility] at this time and call to Kristan at [facility] to notify of referral at this time. Pt voices no further questions/concerns/needs at this time. Jorge Luis SHAFER CM
--- NOTE | 2019-04-05 14:16 | PCM.DC.SUM ---
<Suresh Salgado - Last Filed: 04/05/19 14:16> Discharge Date and Diagnosis - Problem List Patient Problems: Active and Suspected Problems (Last Reviewed 04/03/19 @ 15:08 by Mitch Hernandez DO) Urinary tract infection (Acute) Sepsis (Acute) Sinus tachycardia by electrocardiogram (Acute) Dyspnea (Acute) Date of Admission: 04/03/19 Date of Discharge: 04/05/19 - Primary Discharge Diagnosis Active and Suspected Problems (Last Reviewed 04/03/19 @ 15:08 by Mitch Hernandez DO) Afib RVR Bacteremia, acute sepsis 2/2 UTI 2/2 E coli Acute on chronic diastolic CHF - Secondary Discharge Diagnosis Chronic Problems (Last Reviewed 04/03/19 @ 15:08 by Mitch Hernandez DO) Old myocardial infarction (Chronic) Paroxysmal atrial fibrillation (Chronic) Nonrheumatic mitral (valve) insufficiency (Chronic) Nonrheumatic mitral (valve) prolapse (Chronic) Recurrent pancreatitis (Chronic) Hyperlipidemia (Chronic) Familial combined hyperlipidemia (Chronic) Morbid obesity with BMI of 40.0-44.9, adult (Chronic) Benign hypertension (Chronic) Hospital Course and Treatment Imaging Results: RAD/Chest PA and Lateral IMPRESSION: Left basilar scarring/atelectasis and possible nodular density. Cardiomegaly. CT/CTA Chest W/WO Contrast IMPRESSION: No demonstrated pulmonary embolism or arterial dissection. Consults: Cardiology - Tamara Operations: None Procedures: None Summary of Care Provided: Hospital Course: The patient is a 73 year old F with pmhx of prior OR, pAfib, MVI, HLD, pancreatitis, HLD, HTN, who presented to the ER with c/o SOB and palpitations. She was found to have Afib with RVR, and an elevated D dimer. A CTA chest was obtained which was unremarkable. She had a mildly elevated BNP, Leukocytosis at 15k, + UA, tachycardia, and tachypnea. She was admitted with sob 2/2 CHF, sepsis 2/2 UTI, and Afib RVR. Cardiology was consulted. She was placed on an increased dose of metoprolol, cardizem and eliquis were continued. Cardiology is considering an outpatient cardioversion however she had been off her eliquis for a spinal epidural for chronic back pain. Echo was deferred as she had one this past november - preserved EF. For her UTI she was placed on Aztreonam. Her blood cultures and urine cultures were positive with E coli. These were pansensitive. She was transitioned to Rocephin. She was then discharge on bactrim and will complete a 14 day total course. She did require o2 to maintain adequate sats despite her SOB improving greatly over her stay. She will require up to 2-3 liters O2 via NC at rest and with exertion after discharged as she is active at home and in the community. She will need follow up with cardiology, urology, and with her PCP in 1-2 weeks. This patient was seen by Suresh Salgado PA-C under the supervision of Dr. Hernandez. [] Patient Problems: Active and Suspected Problems (Last Reviewed 04/03/19 @ 15:08 by Mitch Hernandez DO) Urinary tract infection (Acute) Sepsis (Acute) Sinus tachycardia by electrocardiogram (Acute) Dyspnea (Acute) - Physical Exam Vitals/I&O's: Vital Signs Temp Pulse Resp BP Pulse Ox 98.0 F 87 16 126/68 H 97 04/05/19 14:00 04/05/19 14:00 04/05/19 14:00 04/05/19 14:00 04/05/19 14:00 Oxygen Flow Rate (L/min) [ 3 AMBULATION with Oxygen] Oxygen Flow Rate (L/min) 3 Oxygen Delivery Method Nasal Cannula Weight: 231 lb 14.821 oz Body Mass Index (BMI) 41.8 Intake and Output for Last 24 Hours 04/03/19 04/04/19 04/05/19 23:59 23:59 23:59 Intake Total 300 / 740 1450 / 1450 640 / 640 Output Total 100 / 750 2150 / 2150 950 / 950 Balance 200 / -10 -700 / -700 -310 / -310 General: Alert, Oriented x3, Cooperative HEENT: Atraumatic, PERRLA, EOMI, Normocephalic Neck: Supple, No JVD, Negative Carotid Bruits Lungs: Clear to auscultation, Normal air movement Cardiovascular: Regular rate, No murmurs Abdomen: Bowel Sounds Present, Soft, Non Tender Extremities: No edema, Capillary Refill Less than 3 Seconds Skin: No rashes, No breakdown Musculoskeletal: No Tenderness to Palpation of Joints or Extremities Neurological: Cranial nerves II-XII grossly intact Psych/Mental Status: Normal Affect, Appropriate, Alert and oriented to time, place, person, mood and affect Microbiology Past 72 Hours 04/03/19 09:28 Urine, Catheterized Urine Culture - Final Presumptive E. coli 04/03/19 10:53 Blood Culture (Wb) - Anticubital Right Blood Culture - Final GNR lactose supervisor train operations 04/03/19 10:53 Blood Culture (Wb) - Anticubital Left Blood Culture - Final Escherichia coli Laboratory Results 04/05/19 05:00: WBC 10.3, RBC 3.91 L, Hgb 11.3 L, Hct 36.0 L, MCV 92.1, MCH 28.9, MCHC 31.4 L, RDW Std Deviation 52.7 H, RDW Coeff of Patel 15.7 H, Plt Count 141 L, MPV 10.3, Immature Gran % (Auto) 0.800, Neut % (Auto) 82.7 H, Lymph % (Auto) 6.0 L, [place] % (Auto) 10.1 H, Eos % (Auto) 0.2, Baso % (Auto) 0.2, Absolute Neuts (auto) 8.5 H, Absolute Lymphs (auto) 0.62 L, Nucleated RBC % 0 04/05/19 05:00: Sodium 136, Potassium 5.0, Chloride 108 H, Carbon Dioxide 21.0, Anion Gap 7, BUN 35 H, Creatinine 1.38 H, Estim Creat Clear Calc 29.14, Est GFR (MDRD) Af Amer 48 L, Est GFR (MDRD) Non-Af 40 L, BUN/Creatinine Ratio 25.4 H, Glucose 159 H, Calcium 8.6 Current Medications Acetaminophen (Tylenol) 650 mg PO Q6H PRN PRN PRN Reason: Pain Score 1-10/Temp > 100.7 F Allopurinol (Zyloprim) 100 mg PO DAILY [facility] Last Admin: 04/05/19 09:30 Dose: 100 mg Documented by: Apixaban (Eliquis) 5 mg PO BID [facility] Last Admin: 04/05/19 09:29 Dose: 5 mg Documented by: Aspirin (Ecotrin) 81 mg PO DAILY@0800 [facility] Last Admin: 04/05/19 08:01 Dose: 81 mg Documented by: Clobetasol Propionate (Temovate Cream (Bkc)) 1 applic TOPICAL DAILY PRN PRN; Protocol PRN Reason: ITCHING Diltiazem HCl (Cardizem Cd) 180 mg PO BID [facility] Last Admin: 04/05/19 09:29 Dose: 180 mg Documented by: Ezetimibe (Zetia) 10 mg PO QHS [facility] Last Admin: 04/04/19 21:47 Dose: 10 mg Documented by: Furosemide (Lasix) 40 mg PO BIDLX [facility] Last Admin: 04/05/19 09:29 Dose: 40 mg Documented by: Glucagon () 1 mg IM .X1 PRN PRN Reason: Hypoglycemia Dextrose (Dextrose 10%-Water) 250 mls @ 999 mls/hr IV .Q16M PRN; Protocol PRN Reason: HYPOGLYCEMIA Ceftriaxone Sodium (Rocephin) 1 gm in 50 mls @ 100 mls/hr IV Q24 [facility] Last Admin: 04/05/19 14:04 Dose: 100 mls/hr Documented by: Lisinopril (Zestril) 10 mg PO DAILY [facility] Last Admin: 04/05/19 09:30 Dose: 10 mg Documented by: Metoprolol Tartrate (Lopressor (Beta Ramona)) 75 mg PO BID [facility] Last Admin: 04/05/19 09:30 Dose: 75 mg Documented by: Metoprolol Tartrate (Lopressor (Beta Ramona)) 5 mg IV Q6H PRN PRN Reason: hr sustained greater than 120 Oxycodone HCl (Oxyir) 5 mg PO BID [facility] Last Admin: 04/05/19 09:28 Dose: 5 mg Documented by: Pantoprazole Sodium (Protonix) 20 mg PO DAILY [facility] Last Admin: 04/05/19 09:30 Dose: 20 mg Documented by: Potassium Chloride (K-Dur) 20 meq PO DAILYCM [facility] Last Admin: 04/05/19 08:00 Dose: 20 meq Documented by: Sodium Chloride () 10 - 40 ml IV UD PRN PRN Reason: SALINE FLUSH Last Admin: 04/05/19 05:10 Dose: 10 ml Documented by: Discharge Diet: Low fat/ Low Cholesterol, 1800 Calorie Control Diet, 2000 mg Sodium Diet Discharge Activity: Return to Normal Activity Home Medications: Medications to take at Discharge Aspirin E.C. [Ecotrin] 81 mg PO DAILY@0800 tab 07/27/15 Esomeprazole Mag Trihydrate [Nexium] 20 mg PO DAILY 08/14/16 Oxycodone HCl/Acetaminophen [Percocet 5-325] 1 tab PO BID 05/01/17 allopurinol 100 mg tablet 100 mg PO DAILY 01/25/19 apixaban 5 mg tablet 5 mg PO BID #60 tab 01/26/19 diltiazem HCl 180 mg capsule,extended release 24 hr 180 mg PO BID cap 03/08/19 ezetimibe 10 mg tablet 10 mg PO QHS 03/08/19 lisinopril 10 mg tablet 10 mg PO DAILY tab 03/08/19 Clobetasol/Niacinamide [Clobetasol 0.05%-Niacinamid 4%] 60 gm TP DAILY 04/03/19 Acetaminophen [Tylenol Tablet] 650 mg PO Q6H PRN PRN tab 04/05/19 Furosemide [Lasix] 40 mg PO BIDLX #60 tab 04/05/19 Metoprolol Tartrate [Lopressor (beta ramona)] 75 mg PO BID #90 tab 04/05/19 Potassium Chloride [K-Dur] 20 meq PO DAILYCM #30 tab 04/05/19 Smz/Tmp Ds [Bactrim Ds] 1 tab PO X1 #1 tab 04/05/19 Sulfamethoxazole/Trimethoprim [Bactrim 400-80 mg Tablet] 1 ea PO Q12H #22 tab 04/05/19 Following Prescrptions Were Given to Patient: Sulfamethoxazole/Trimethoprim [Bactrim 400-80 mg Tablet] 1 ea PO Q12H #22 tab Transmission Status: Received by [id number] Smz/Tmp Ds [Bactrim Ds] 1 tab PO X1 #1 tab Transmission Status: Received by [id number] Potassium Chloride [K-Dur] 20 meq PO DAILYCM #30 tab Transmission Status: Received by [id number] Furosemide [Lasix] 40 mg PO BIDLX #60 tab Transmission Status: Received by [facility] 181 Metoprolol Tartrate [Lopressor (beta ramona)] 75 mg PO BID #90 tab Transmission Status: Received by [id number] Primary Care Physician: Miles Ried MD [Primary Care Provider] - Please follow up with your Primary Care Physician in: 1-2 weeks Please Follow Up With: Marika Goodwin PA When: as directed Please Follow Up With: Randell Dickey MD When: 3-4 weeks Please Follow Up With: Miles Reid MD Disposition: Home Minutes spent on discharge:: 35 Patient Condition:: Stable Medical Necessity - Tobacco Use Smoking Status: Never smoker Meaningful Use Info Meaningful Use Diagnoses (Choose all that apply): CHF - CHF LAILA/ARB ordered at discharge?: Yes Documented LVEF (%): 70 <Mitch Hernandez - Last Filed: 04/05/19 15:16> Discharge Date and Diagnosis - Primary Discharge Diagnosis Active and Suspected Problems (Last Reviewed 04/03/19 @ 15:08 by Mitch Hernandez DO) Urinary tract infection (Acute) Sepsis (Acute) Sinus tachycardia by electrocardiogram (Acute) Dyspnea (Acute) - Secondary Discharge Diagnosis Chronic Problems (Last Reviewed 04/03/19 @ 15:08 by Mitch Hernandez DO) Old myocardial infarction (Chronic) Paroxysmal atrial fibrillation (Chronic) Nonrheumatic mitral (valve) insufficiency (Chronic) Nonrheumatic mitral (valve) prolapse (Chronic) Recurrent pancreatitis (Chronic) Hyperlipidemia (Chronic) Familial combined hyperlipidemia (Chronic) Morbid obesity with BMI of 40.0-44.9, adult (Chronic) Benign hypertension (Chronic) Hospital Course and Treatment Operations: None Procedures: None Summary of Care Provided: Patient seen and examined independently. Data reviewed. I agree with the above note by the physician chemist assistant. The patient is a 73 year old F presents with shortness of breath. Patient was found to be in atrial fibrillation with RVR. Heart rate was in the 120s but patient was also short of breath as well and did have increasing lower extremity edema so felt to be a component of some CHF. Patient's metoprolol was increased from 50-75 did have some improvement of heart rate but still is in the 1 teens. Cardiology was consulted and car started her on diltiazem which is helped control her heart rate. Patient had slightly abnormal urinalysis but not definitively positive for urinary tract infection. Patient did have blood cultures performed and in the ER it did Come back positive for gram-negative rods. This eventually showed E. coli and urine culture as well. So patient did have urine tract infection as well as bacteremia. Patient is allergy to penicillin so will be discharged with trimethoprim/sulfamethoxazole complete a 14-day course of antibiotics. Patient overall is feeling better. [] - Physical Exam Vitals/I&O's: Vital Signs Temp Pulse Resp BP Pulse Ox 36.7 C 87 16 126/68 H 97 04/05/19 14:00 04/05/19 14:00 04/05/19 14:00 04/05/19 14:00 04/05/19 14:00 Oxygen Flow Rate (L/min) [ 3 AMBULATION with Oxygen] Oxygen Flow Rate (L/min) 2 Oxygen Delivery Method Nasal Cannula Weight: 105.2 kg Body Mass Index (BMI) 41.8 Intake and Output for Last 24 Hours 04/03/19 04/04/19 04/05/19 23:59 23:59 23:59 Intake Total 300 / 740 1450 / 1450 690 / 690 Output Total 100 / 750 2150 / 2150 950 / 950 Balance 200 / -10 -700 / -700 -260 / -260 General: Alert, Cooperative HEENT: Atraumatic, Normocephalic Neck: No Nodes, Trachea Midline Lungs: Clear to auscultation, Normal air movement, No rhonchi, No wheeze Cardiovascular: Regular rate, Regular Rhythm, Normal S1, Normal S2, No murmurs Abdomen: Bowel Sounds Present, Soft, Non Tender, Non-Distended Extremities: No edema, No Calf Tenderness Microbiology Past 72 Hours 04/03/19 09:28 Urine, Catheterized Urine Culture - Final Presumptive E. coli 04/03/19 10:53 Blood Culture (Wb) - Anticubital Right Blood Culture - Final GNR lactose supervisor train operations 04/03/19 10:53 Blood Culture (Wb) - Anticubital Left Blood Culture - Final Escherichia coli Laboratory Results 04/05/19 05:00: WBC 10.3, RBC 3.91 L, Hgb 11.3 L, Hct 36.0 L, MCV 92.1, MCH 28.9, MCHC 31.4 L, RDW Std Deviation 52.7 H, RDW Coeff of Patel 15.7 H, Plt Count 141 L, MPV 10.3, Immature Gran % (Auto) 0.800, Neut % (Auto) 82.7 H, Lymph % (Auto) 6.0 L, [place] % (Auto) 10.1 H, Eos % (Auto) 0.2, Baso % (Auto) 0.2, Absolute Neuts (auto) 8.5 H, Absolute Lymphs (auto) 0.62 L, Nucleated RBC % 0 04/05/19 05:00: Sodium 136, Potassium 5.0, Chloride 108 H, Carbon Dioxide 21.0, Anion Gap 7, BUN 35 H, Creatinine 1.38 H, Estim Creat Clear Calc 29.14, Est GFR (MDRD) Af Amer 48 L, Est GFR (MDRD) Non-Af 40 L, BUN/Creatinine Ratio 25.4 H, Glucose 159 H, Calcium 8.6 Current Medications Acetaminophen (Tylenol) 650 mg PO Q6H PRN PRN PRN Reason: Pain Score 1-10/Temp > 100.7 F Allopurinol (Zyloprim) 100 mg PO DAILY [facility] Last Admin: 04/05/19 09:30 Dose: 100 mg Documented by: Apixaban (Eliquis) 5 mg PO BID [facility] Last Admin: 04/05/19 09:29 Dose: 5 mg Documented by: Aspirin (Ecotrin) 81 mg PO DAILY@0800 [facility] Last Admin: 04/05/19 08:01 Dose: 81 mg Documented by: Clobetasol Propionate (Temovate Cream (Bkc)) 1 applic TOPICAL DAILY PRN PRN; Protocol PRN Reason: ITCHING Diltiazem HCl (Cardizem Cd) 180 mg PO BID [facility] Last Admin: 04/05/19 09:29 Dose: 180 mg Documented by: Ezetimibe (Zetia) 10 mg PO QHS [facility] Last Admin: 04/04/19 21:47 Dose: 10 mg Documented by: Furosemide (Lasix) 40 mg PO BIDLX [facility] Last Admin: 04/05/19 09:29 Dose: 40 mg Documented by: Glucagon () 1 mg IM .X1 PRN PRN Reason: Hypoglycemia Dextrose (Dextrose 10%-Water) 250 mls @ 999 mls/hr IV .Q16M PRN; Protocol PRN Reason: HYPOGLYCEMIA Ceftriaxone Sodium (Rocephin) 1 gm in 50 mls @ 100 mls/hr IV Q24 [facility] Last Infusion: 04/05/19 14:39 Dose: Infused Documented by: Lisinopril (Zestril) 10 mg PO DAILY [facility] Last Admin: 04/05/19 09:30 Dose: 10 mg Documented by: Metoprolol Tartrate (Lopressor (Beta Ramona)) 75 mg PO BID [facility] Last Admin: 04/05/19 09:30 Dose: 75 mg Documented by: Metoprolol Tartrate (Lopressor (Beta Ramona)) 5 mg IV Q6H PRN PRN Reason: hr sustained greater than 120 Oxycodone HCl (Oxyir) 5 mg PO BID [facility] Last Admin: 04/05/19 09:28 Dose: 5 mg Documented by: Pantoprazole Sodium (Protonix) 20 mg PO DAILY [facility] Last Admin: 04/05/19 09:30 Dose: 20 mg Documented by: Potassium Chloride (K-Dur) 20 meq PO DAILYCM [facility] Last Admin: 04/05/19 08:00 Dose: 20 meq Documented by: Sodium Chloride () 10 - 40 ml IV UD PRN PRN Reason: SALINE FLUSH Last Admin: 04/05/19 05:10 Dose: 10 ml Documented by: Discharge Diet: Low fat/ Low Cholesterol, 1800 Calorie Control Diet, 2000 mg Sodium Diet Discharge Activity: Return to Normal Activity Disposition: Home Minutes spent on discharge:: 35 Patient Condition:: Stable Medical Necessity - Tobacco Use Smoking Status: Never smoker Meaningful Use Info Meaningful Use Diagnoses (Choose all that apply): CHF - CHF LAILA/ARB ordered at discharge?: Yes Documented LVEF (%): 70 Code Visit Inpatient E&M: 75047 Disch Hosp
--- NOTE | 2019-04-06 13:44 | CASEMGMT ---
HOLLIS MONTERO DC PHONE CALL DC DATE: 04.05.2019 DC Disposition: Home Diagnosis on Discharge: UTI, sepsis LACE/STRATA: 01/27 Intro role of CM to patient via phone. Pt states the oxygen is helping her. She reviewed medications and feels she has good understanding. Discussed f/u appts with Dr. Reid and cardiology. Pt was interested in knowing how long she would need oxygen. HOLLIS MONTERO encouraged her to discuss when she sees cardiology in two weeks. Testing could be repeated and she can discuss future needs. No further questions and no care improvement suggestions were given. Tonie NICHOLAS RN ACM.
== END 2019-04-05 17:05 | disposition home or self-care (01) | DRG 308 ==
LOC: ED 13:35 → PCU 15:22
PROVIDERS: Emergency Provider Emergency Medicine; PCP Family Medicine
DX: I48.0 Paroxysmal atrial fibrillation (principal); A41.51 Sepsis due to Escherichia coli [E. coli]; I50.33 Acute on chronic diastolic (congestive) heart failure; N39.0 Urinary tract infection, site not specified; Z68.41 Body mass index [BMI] 40.0-44.9, adult; Z79.02 Long term (current) use of antithrombotics/antiplatelets; I11.0 Hypertensive heart disease with heart failure; E78.49 Other hyperlipidemia; E66.01 Morbid (severe) obesity due to excess calories; I25.2 Old myocardial infarction; K21.9 Gastro-esophageal reflux disease without esophagitis; M06.9 Rheumatoid arthritis, unspecified; Z79.82 Long term (current) use of aspirin; Z79.899 Other long term (current) drug therapy
CPT/HCPCS: 36415; 71046; 71275; 80048; 81001; 83605; 83880; 84443; 84484; 85025; 85379; 87040; 87077; 87086; 87088; 87186; 93005; 93225; 93226; 97162; 97165; 99285; J7050; P9612; Q9967; A4216; J0744

== ENCOUNTER → 2019-04-09 | Outpatient (CLI) | payer MEDICARE, OTHER, SELFPAY ==
[2019-04-03 15:48] VITALS: BMI 41.8
[2019-04-09 14:19] LABS: Anion Gap 7 (5-15); BUN 63 mg/dL (7-18); BUN/Creat Ratio 28.9 RATIO (10-20); Calcium,Total 9.4 mg/dL (8.5-10.1); Chloride 108 mmol/L (98-107); Creatinine, Serum 2.18 mg/dL (0.55-1.02); EST Glomerular Filtration Rate 23 mL/min (>60); Est Glom Filt Rate - Afr Amer 28 mL/min (>60); Glucose 132 mg/dL (74-106); Potassium 5.8 mmol/L (3.5-5.1); Sodium Level 137 mmol/L (136-145)
== END | disposition home or self-care (01) ==
LOC: MTLAB 13:25
PROVIDERS: PCP Family Medicine; Referring Provider Physician Assistant Medical; Visit Provider Physician Assistant Medical
DX: I10 Essential (primary) hypertension (principal)
CPT/HCPCS: 36415; 80048

== ENCOUNTER 2019-04-15 11:29 | Outpatient (RCR) | payer MEDICARE, OTHER, SELFPAY ==
[2019-04-03 15:48] VITALS: BMI 41.8
[2019-04-15 12:15] LABS: AST(SGOT) 10 U/L (15-37); Alanine Aminotransfer ALT/SGPT 24 U/L (13-56); Albumin, Serum 2.9 g/dL (3.2-5.0); Alkaline Phosphatase 134 U/L (45-117); Anion Gap 4 (5-15); BUN 70 mg/dL (7-18); BUN/Creat Ratio 25.1 RATIO (10-20); Bilirubin, Direct 0.12 mg/dL (0.00-0.30); Calcium,Total 9.3 mg/dL (8.5-10.1); Chloride 112 mmol/L (98-107); Cholesterol 164 mg/dL (200); Creatinine, Serum 2.79 mg/dL (0.55-1.02); EST Glomerular Filtration Rate 18 mL/min (>60); Est Glom Filt Rate - Afr Amer 21 mL/min (>60); Globulin 3.7 g/dL (2.2-4.2); Glucose 111 mg/dL (74-106); High Density Lipoprotein 41 mg/dL; Potassium 5.5 mmol/L (3.5-5.1); Protein, Total 6.6 g/dL (6.4-8.2); Sodium Level 141 mmol/L (136-145); Triglycerides 152 mg/dL; Very Low Density Lipoprotein 30 mg/dL (5-40)
== END 2019-04-24 23:59 ==
LOC: HHLAB 11:29
PROVIDERS: PCP Family Medicine; Referring Provider Internal Medicine Cardiovascular Disease; Visit Provider Internal Medicine Cardiovascular Disease
DX: E78.5 Hyperlipidemia, unspecified (principal); I10 Essential (primary) hypertension
CPT/HCPCS: 80048; 80061; 80076

== ENCOUNTER 2019-04-19 13:06 | Inpatient (IN) | payer MEDICARE, OTHER, SELFPAY ==
[2019-04-03 15:48] VITALS: BMI 41.8
[2019-04-19] VITALS (10 sets, daily range): BP systolic 94–134; BP diastolic 51–94; PULSE 73–122; RESP 16–20; TEMP 36.4–36.7; O2SAT 92–100; BMI 41.2; BMI 39.9; BMI 40.0
--- NOTE | 2019-04-19 13:44 | CT_ITS ---
STUDY: CT ABDOMEN AND PELVIS WITHOUT CONTRAST REASON FOR EXAM: Female, 73 years old. N/V, CONSTIPATION RADIATION DOSAGE (If Supplied By Facility): CTDIvol = ( 33.31 ) mGy, DLP = ( 1618.69 ) mGycm EXAM DESCRIPTION: CT scan of the abdomen and pelvis without IV contrast. CLINICAL HISTORY: 73 years Female, N/V, CONSTIPATION COMPARISON: Previous CT scan of the abdomen and pelvis obtained on 05/10/2013 TECHNIQUE: A CT scan of the abdomen and pelvis was performed without IV contrast contrast administration. Oral contrast was also administered. Coronal and sagittal reconstruction images were reviewed. This exam was performed according to our departmental dose-optimization program, which includes automated exposure control, adjustment of the mA and/or kV according to patient size and/or use of iterative reconstruction technique. FINDINGS: The lung bases and the base of the heart are normal. The liver is normal.The spleen contains 2 small simple cyst but is otherwise normal.The adrenal glands are normal.The head, body, and tail of the pancreas are normal. The right and left kidneys were examined and appear to be normal. A Bosniak type II one CM cyst is seen off the lateral aspect of the left kidney which is actually decreased in size when compared with the previous CT scan obtained on 05/10/2013 Both ureters appear to be normal, and no obstructive uropathy is identified. The abdominal aortal is normal along its course and distribution. No paraortic lymphadenopathy is seen. No abdominal masses or lesions are seen. Abundant fecal material is noted within the colon. The CT scan of the pelvis was then reviewed. The common iliac vessels, external iliac vessels, and common femoral vessels are normal along their course and distribution No pelvis masses or lesions are seen. The appendix is nonvisualized No pericecal inflammatory reaction is seen. Bone scanning windows of the lumbar spine and pelvis were reviewed in the coronal and sagittal planes and show spinal fusion involving the lower lumbar spine. CT/Abdomen/Pel W ORAL Cont Only IMPRESSION: Status post spinal fusion of the lower lumbar spine in this otherwise normal CT scan of the abdomen and pelvis. Electronically Signed: Reilly Germain, at 16:29 EST Tel , Service support ,
[2019-04-19] MEDS: Ondansetron 4 MG/2 ML Vial IV ×2 (14:09→19:32)
[2019-04-19 14:17] LABS: Absolute Lymphocyte Count 0.83 X10^3/uL (0.83-4.51); Absolute Neutrophil Count 8.9 X10^3/uL (2.0-7.7); Basophil# 0.02 X10^3/uL; Basophil% 0.2 % (0-1); Eosinophil# 0.03 X10^3/uL; Eosinophils% 0.3 % (0-5); Hematocrit 39.6 % (37-47); Hemoglobin 12.5 g/dL (12.0-15.0); Lymphocyte # 0.83 X10^3/ul (4.0); Lymphocyte % 7.9 % (19-41); Mean Corp Hgb Conc 31.6 g/dL (32-36); Mean Corpuscular Hgb 29.6 pg (27.0-32.0); Mean Corpuscular Volume 93.6 fL (81-99); Mean Platelet Vol. 10.9 fl (6.2-12.0); Monocyte# 0.68 X10^3/uL; Monocyte% 6.5 % (0-10); NRBC Flagged by Analyzer 0 % (0-5); Neutrophil # 8.85 X10^3/uL (2.7-7.7); Neutrophil % 84.4 % (47-70); Platelet Count 262 K/mm3 (150-450); RBC Distribution Width CV 15.8 % (11.6-14.6); RBC Distribution Width SD 53.8 fl (35.1-43.9); Red Blood Count 4.23 M/mm3 (4.2-5.4); White Blood Count 10.5 K/mm3 (4.4-11.0)
[2019-04-19 14:38] LABS: Lactic Acid 1.1 mmol/L (0.4-1.9)
[2019-04-19 15:37] LABS: ALB/GLOB Ratio 0.7 RATIO (0.9-2.4); AST(SGOT) 12 U/L (15-37); Alanine Aminotransfer ALT/SGPT 21 U/L (13-56); Albumin, Serum 2.9 g/dL (3.2-5.0); Alkaline Phosphatase 159 U/L (45-117); Anion Gap 5 (5-15); BUN 68 mg/dL (7-18); BUN/Creat Ratio 23.8 RATIO (10-20); Calcium,Total 9.7 mg/dL (8.5-10.1); Chloride 109 mmol/L (98-107); Creatinine, Serum 2.86 mg/dL (0.55-1.02); EST Glomerular Filtration Rate 17 mL/min (>60); Est Glom Filt Rate - Afr Amer 21 mL/min (>60); Estimated Creatinine Clearance 14.06 ml/min; Globulin 4.3 g/dL (2.2-4.2); Glucose 122 mg/dL (74-106); Lipase 170 U/L (73-393); Potassium 6.3 mmol/L (3.5-5.1); Protein, Total 7.2 g/dL (6.4-8.2); Sodium Level 139 mmol/L (136-145)
--- NOTE | 2019-04-19 15:45 | ED.DCSUM_ITS ---
History of Present Illness Chief Complaint: Nausea/Vomiting Informant: Patient Narrative: Patient is brought to the emergency department with constipation x2 weeks. Apparently her home health nurse sent her to the emergency department stating that she is not eating or drinking. Patient tells me everything is on a piece of paper that she sent in with. Patient notes vomiting is concerned she may have a small bowel obstruction. She does not really wish to offer any details stating that she is just too exhausted to speak. Patient was recently admitted with urinary tract infection and sepsis. Has a history of paroxysmal atrial fibrillation, hyperlipidemia, morbid obesity, hypertension, mitral valve prolapse and prior IA. Urine grew out E. coli and when I can see she was treated appropriately with Bactrim. Patient is on Eliquis. Past Medical History - Allergies and Home Meds Allergies/Adverse Reactions: Allergies Penicillins Allergy (Verified 03/08/19 10:56) Hives atorvastatin [From Lipitor] Adverse Reaction (Severe, Verified 03/08/19 10:56) Elevated LFT Primary Care Physician: Miles Reid MD [Primary Care Provider] - Surgical History: appendectomy, cataract, cholecystectomy, total knee arthroplasty - left, - - Foot surgery, carpal tunnel surgery Smoking Status: Never smoker - Family History Maternal Family History: Family History (Last Reviewed 04/03/19 @ 15:[address] Mitch Hernandez DO) Sister Hypertension Other Arthritis Cancer Diabetes Family History: Reports: Renal Disease - age 70 Paternal Family History: Family History (Last Reviewed 04/03/19 @ 15:[address] Mitch Hernandez DO) Sister Hypertension Other Arthritis Cancer Diabetes Family History: Reports: - - age 45 cirrhosis Review of Systems General: Denies: Chills, Fever, Sweats Eyes: Denies: Visual changes - bilaterally, Diplopia ENT: Denies: Rhinorrhea, Sore throat Cardiovascular: Denies: Chest pain, Palpitations Respiratory: Denies: Dyspnea, Cough, Dyspnea on exertion Gastrointestinal: Reports: Abdominal pain, Constipation. Denies: Nausea, Vomiting, Diarrhea, Melena, Hematochezia Genitourinary: Denies: Dysuria, Hematuria, Frequency Musculoskeletal: Reports: Swelling. Denies: Back pain, Extremity Pain Skin: Denies: Rash, Wounds Neurological: Denies: Headache, Weakness, Numbness Psych: Reports: Depression. Denies: Suicidal thoughts, Suicidal ideations Physical Exam Vital Signs/Narrative: Vital Signs Temp Pulse Resp BP Pulse Ox 04/19/19 13:09 97.6 F L 109 H 16 100/56 L 100 Inital Vital Signs reviewed: Yes General: Well nourished, Well developed, No Acute Distress Head: Normocephalic, Atraumatic Eyes: Perrl, EOMI ENT: Moist mucous membranes, No rhinorrhea Neck: Supple, Nontender Cardiovascular: Regular rate, Regular rhythm, No murmurs Respiratory: No distress, CTA bilaterally, Chest nontender Abdomen: Soft, Nondistended, Normal bowel sounds, Tender. Negative for: Guarding, Rebound tenderness Back: Nontender, Normal Inspection Extremities: Nontender, Edema - 2+ Skin: Normal color, No rash Neurological: Alert, Oriented x3, Cranial nerves II-XII grossly intact, Normal Strength, Normal Sensation Psychological: Depressed. Negative for: Tearful, Agitated Diagnostic/Tx/Re-eval - EKG Initial EKG Interpretation: Atrial Fibrillation - Atrial fibrillation at a rate of 85 with no concerning features of ACS. - Medical Decision Making CBC is normal. Potassium 6.3 creatinine substantially up from earlier this month of 2.86 with a BUN of 68. Thus representing acute kidney injury. Patient received IV fluids. Hyperkalemia order set was utilized. CT the abdomen pelvis with oral contrast was obtained. I do not see any small bowel obstruction. I do not see any fecal impaction. There is stool down to the sigmoid colon and into the rectum. . ED Disposition - Plan for ED Patient: Disposition: Acute Care Hospital [facility] Diagnosis: Acute kidney injury, Hyperkalemia, Constipation Referrals: Miles Reid MD [Primary Care Provider] -
--- NOTE | 2019-04-19 15:45 | EKG12_ITS ---
Test Reason : AFIB Blood Pressure : / mmHG Vent. Rate : 085 BPM Atrial Rate : 087 BPM P-R Int : 000 ms QRS Dur : 082 ms QT Int : 364 ms P-R-T Axes : 000 -25 079 degrees QTc Int : 433 ms Atrial fibrillation Leftward axis Poor R wave progression Nonspecific T wave abnormality Abnormal ECG Confirmed by HAYLEY LOCKHART, PETER ([id number]), news videotape editor LORI ROSSI ([id number]) on 04/21/2019 1:49:09 PM Referred By: CHRISTOPHER Confirmed By:PETER HARDY MD
[2019-04-19 16:36] LABS: Bacteria 0 SEEN /hpf (None Seen); Mucous, Urine 0 SEEN /hpf (<or=2+); Squamous Epithelial Cells - UA 0 SEEN /hpf (5-10); White Blood Cells 0 SEEN /hpf (0-5)
[2019-04-19] MEDS: 0.9% Normal Saline 1,000 ML 150 ML IV (16:37)
[2019-04-19 16:40] LABS: Color, Urine Yellow (Yellow); Glucose, Dipstick Normal (Normal); Ketone-Dipstick Negative (Negative); Leukocyte Esterase-Dipstick 25 /ul (Negative); Nitrite-Dipstick Negative (Negative); Occult Blood-Urine 250 /ul (Negative); Protein-Dipstick Negative (Negative); Specific Gravity, Urine 1.015 (1.002-1.030); Urine Bilirubin Dipstick Negative (Negative); Urine Clarity Sl. Cloudy (Clear); Urine Urobilinogen Normal (Normal)
[2019-04-19] MEDS: Albuterol 2.5 MG/3 ML VIAL.NEB. INHALATION (17:29)
[2019-04-19] MEDS: Dextrose 50%-Water 25 GM/50 ML DISP.SYRIN IV (17:36)
[2019-04-19] MEDS: Insulin Lispro 5 UNIT in Syringe 0 ML 3 UNIT IV (17:41)
[2019-04-19] MEDS: Sodium Polystyrene Sulfonate 15 GM/60 ML UDC 30 GM PO (17:46)
[2019-04-19 18:03] LABS: Red Blood Cells-Urine 0-5 SEEN /hpf (0-5)
--- NOTE | 2019-04-19 18:16 | PCM.HP.STD ---
Problem List (1) Acute kidney injury Status: Acute (2) Hyperkalemia Status: Acute (3) Constipation Status: Acute (4) Paroxysmal atrial fibrillation Status: Chronic (5) Hyperlipidemia Status: Chronic Qualifiers: Hyperlipidemia type: unspecified Qualified Code(s): E78.5 - Hyperlipidemia, unspecified (6) Morbid obesity with BMI of 40.0-44.9, adult Status: Chronic (7) Benign hypertension Status: Chronic History of Present Illness Date of Admission: 04/19/19 Chief Complaint: N/V/constipation The patient is a 73 year old F with past medical history of chronic atrial fibrillation, chronic back pain, fibromyalgia, recurrent pancreatitis, rheumatoid arthritis, hyperlipidemia, hypertension, CKD 3, who presented to the emergency room after being sent by home health care for ongoing nausea, vomiting, inability to keep food or drink down, and severe constipation. The patient had not moved her bowels in approximately 2 weeks. She had been trying [id number] medications with no success. She had been feeling increasingly weak and fatigued. She states that home health care nurses did not feel comfortable managing this issue at home anymore. She does have mild diffuse abdominal pain. She has occasional gas. She thinks it may be related to her chronic pain medications oxycodone which she takes for rheumatoid arthritis and chronic back pain. She does follow pain management for this. She attempted to call pain management today but not here in answer back. In the ER she was found to have acute kidney injury and elevated potassium. CT shows retained stool. She is going to try lactulose. She is willing to try further orals, enemas, and suppositories if necessary. She also has atrial fibrillation which is chronic and is mildly tachycardic in the ER. [] Past Medical History Past Medical History (Chronic Problems): Chronic Problems (Last Reviewed 04/03/19 @ 15:[address] Mitch Hernandez DO) Old myocardial infarction (Chronic) Paroxysmal atrial fibrillation (Chronic) Nonrheumatic mitral (valve) insufficiency (Chronic) Nonrheumatic mitral (valve) prolapse (Chronic) Recurrent pancreatitis (Chronic) Hyperlipidemia (Chronic) Familial combined hyperlipidemia (Chronic) Morbid obesity with BMI of 40.0-44.9, adult (Chronic) Benign hypertension (Chronic) Medical History: Medical History (Last Reviewed 04/03/19 @ 15:[address] Mitch Hernandez DO) Old myocardial infarction (Chronic) I25.2 Paroxysmal atrial fibrillation (Chronic) I48.0 Nonrheumatic mitral (valve) insufficiency (Chronic) I34.0 Nonrheumatic mitral (valve) prolapse (Chronic) I34.1 Recurrent pancreatitis (Chronic) K86.1 Hyperlipidemia (Chronic) E78.5 Familial combined hyperlipidemia (Chronic) E78.4 Morbid obesity with BMI of 40.0-44.9, adult (Chronic) E66.01, Z68.41 Benign hypertension (Chronic) I10 Gout M10.9 Diverticulitis K57.92 Fibromyalgia M79.7 GERD (gastroesophageal reflux disease) K21.9 Rheumatoid arthritis M06.9 Spinal stenosis of lumbar region M48.061 Screening for intestinal cancer (Resolved) Z12.10 Allergies Penicillins Allergy (Verified 03/08/19 10:56) Hives atorvastatin [From Lipitor] Adverse Reaction (Severe, Verified 03/08/19 10:56) Elevated LFT Home Medications: Ambulatory Orders Medication Instructions Recorded Esomeprazole Mag Trihydrate 20 mg PO DAILY 08/14/16 [Nexium] Oxycodone HCl/Acetaminophen 1 tab PO BID 05/01/17 [Percocet 5-325] allopurinol 100 mg tablet 100 mg PO DAILY 01/25/19 diltiazem HCl 180 mg 180 mg PO BID cap 03/08/19 capsule,extended release 24 hr ezetimibe 10 mg tablet 10 mg PO QHS 03/08/19 lisinopril 10 mg tablet 10 mg PO DAILY tab 03/08/19 Clobetasol/Niacinamide [Clobetasol 60 gm TP DAILY PRN PRN 04/03/19 0.05%-Niacinamid 4%] Apixaban [Eliquis] 5 mg PO BID 04/19/19 Aspirin E.C. [Ecotrin] 81 mg PO DAILY@0800 04/19/19 Furosemide 40 mg PO DAILY 04/19/19 Metoprolol Tartrate [Lopressor 75 mg PO BID 04/19/19 (beta ramona)] Surgical History: Surgical History (Last Reviewed 04/03/19 @ 15:[address] Mitch Hernandez DO) H/O endoscopic retrograde cholangiopancreatography Z98.890 with removal of stent and biliary sludge History of appendectomy Z90.49 History of back surgery Z98.890 History of cardiac radiofrequency ablation Onset Date: ~10/2008 Z98.890 History of cholecystectomy Z90.49 History of left knee replacement Z96.652 S/P lumbar fusion Z98.1 Surgical History: appendectomy, cataract, cholecystectomy, total knee arthroplasty - left, - - Foot surgery, carpal tunnel surgery Psychiatric History: No pertinent psych hx MUSIC WORKER History: No pertinent MUSIC WORKER history Lives: Alone Smoking Status: Never smoker Tobacco Use: Non-smoker Alcohol: None Drugs: None - *Family History Maternal Family History: Family History (Last Reviewed 04/19/19 @ 18:23 by CARIN Llamas) Sister Hypertension Other Arthritis Cancer Diabetes History Items: Renal Disease - age 70 Paternal Family History: Family History (Last Reviewed 04/19/19 @ 18:23 by CARIN Llamas) Sister Hypertension Other Arthritis Cancer Diabetes History Items: - - age 45 cirrhosis Review of Systems Constitutional: Reports: Malaise, Weakness, Fatigue. Denies: Chills, Fever, Weight Change HEENT: Denies: Head Aches, Sinus Congestion, Sinus Drainage Cardiovascular: Denies: Chest Pain, Chest Pressure, Chest Tightness, Heaviness, Light Headedness, Palpitations, Syncope Respiratory: Denies: Cough, Shortness of Breath, Shortness of breath at rest, Shortness of breath upon exertion, Sputum production Gastrointestinal: Reports: Abdominal Pain, Constipation, Nausea, Vomiting Genitourinary: Denies: Dysuria Musculoskeletal: Denies: Joint Pain, Joint Tenderness Skin: Denies: Rash, Wounds Neurological: Denies: Numbness, Tingling, Focal weakness Psychiatric: Denies: Anxiety, Depression, Homicidal Ideations, Suicidal Ideations Hematologic/ Lymphatic: Denies: Easy Bruising, Easy Bleeding VTE Information - Inpt Only VTE Present on Admission: No VTE Mechan Device Prophylaxis: None VTE Pharm Prophylaxis ordered?: Yes Patient Problems: Active and Suspected Problems (Last Reviewed 04/03/19 @ 15:[address] Mitch Hernandez, DO) Acute kidney injury (Acute) Hyperkalemia (Acute) Constipation (Acute) - Physical Exam Vitals/I&O's: Vital Signs Temp Pulse Resp BP Pulse Ox 97.6 F L 105 H 20 H 134/94 H 92 04/19/19 13:09 04/19/19 17:48 04/19/19 17:48 04/19/19 17:48 04/19/19 17:48 Oxygen Flow Rate (L/min) 2.5 Oxygen Delivery Method Nasal Cannula Weight: 232 lb 12.93 oz Body Mass Index (BMI) 41.2 Intake and Output for Last 24 Hours 04/17/19 04/18/19 04/19/19 23:59 23:59 23:59 Intake Total 0.05 / 0.05 Balance 0.05 / 0.05 General: Alert, Oriented x3, Cooperative HEENT: Atraumatic, PERRLA, EOMI, Normocephalic Neck: Supple, No JVD, Negative Carotid Bruits Lungs: Clear to auscultation, Normal air movement Cardiovascular: Irregular Rate, Tachycardic Abdomen: Soft, Hypoactive Bowel Sounds, Tender - Mild tenderness to palpation in all 4 quadrants, no guarding or rigidity Extremities: Capillary Refill Less than 3 Seconds, Edema - 2+ pitting edema bilateral lower extremity in the ankles and feet. Skin: No rashes, No breakdown Musculoskeletal: No Tenderness to Palpation of Joints or Extremities Neurological: Cranial nerves II-XII grossly intact Psych/Mental Status: Normal Affect, Appropriate, Alert and oriented to time, place, person, mood and affect Laboratory Results 04/19/19 13:05: WBC 10.5, RBC 4.23, Hgb 12.5, Hct 39.6, MCV 93.6, MCH 29.6, MCHC 31.6 L, RDW Std Deviation 53.8 H, RDW Coeff of Patel 15.8 H, Plt Count 262, MPV 10.9, Immature Gran % (Auto) 0.700, Neut % (Auto) 84.4 H, Lymph % (Auto) 7.9 L, [place] % (Auto) 6.5, Eos % (Auto) 0.3, Baso % (Auto) 0.2, Absolute Neuts (auto) 8.9 H, Absolute Lymphs (auto) 0.83, Nucleated RBC % 0 04/19/19 13:05: Sodium Cancelled, Potassium Cancelled, Chloride Cancelled, Carbon Dioxide Cancelled, Anion Gap Cancelled, BUN Cancelled, Creatinine Cancelled, Estim Creat Clear Calc Cancelled, Est GFR (MDRD) Af Amer Cancelled, Est GFR (MDRD) Non-Af Cancelled, BUN/Creatinine Ratio Cancelled, Glucose Cancelled, Calcium Cancelled, Total Bilirubin Cancelled, AST Cancelled, ALT Cancelled, Alkaline Phosphatase Cancelled, Total Protein Cancelled, Albumin Cancelled, Globulin Cancelled, Albumin/Globulin Ratio Cancelled, Lipase Cancelled 04/19/19 13:05: Lactic Acid 1.1 04/19/19 15:00: Sodium 139, Potassium 6.3 H*, Chloride 109 H, Carbon Dioxide 25.0, Anion Gap 5, BUN 68 H, Creatinine 2.86 H, Estim Creat Clear Calc 14.06, Est GFR (MDRD) Af Amer 21 L, Est GFR (MDRD) Non-Af 17 L, BUN/Creatinine Ratio 23.8 H, Glucose 122 H, Calcium 9.7, Total Bilirubin 0.40, AST 12 L, ALT 21, Alkaline Phosphatase 159 H, Total Protein 7.2, Albumin 2.9 L, Globulin 4.3 H, Albumin/Globulin Ratio 0.7 L, Lipase 170 04/19/19 16:30: Urine Color Yellow, Urine Clarity Sl. Cloudy, Urine pH 5.0, Ur Specific [place] 1.015, Urine Protein Negative, Urine Glucose (UA) Normal, Urine Ketones Negative, Urine Occult Blood 250 H, Urine Nitrite Negative, Urine Bilirubin Negative, Urine Urobilinogen Normal, Ur Leukocyte Esterase 25 H, Urine RBC 0-5 SEEN, Urine WBC 0 SEEN, Ur Squamous Epith Cells 0 SEEN, Urine Bacteria 0 SEEN, Urine Mucus 0 SEEN Current Medications Allopurinol (Zyloprim) 100 mg PO DAILY EM Apixaban (Eliquis) 5 mg PO BID [facility] Aspirin (Ecotrin) 81 mg PO DAILY@0800 [facility] Bisacodyl (Dulcolax) 10 mg RECTAL DAILY PRN PRN Reason: Constipation Diltiazem HCl (Cardizem Cd) 180 mg PO BID [facility] Ezetimibe (Zetia) 10 mg PO QHS [facility] Sodium Chloride () 1,000 mls @ 125 mls/hr IV .Q8H [facility] Magnesium Citrate (Citrate Of Magnesia) 300 ml PO X1 ONE Stop: 04/19/19 18:14 Magnesium Hydroxide (Milk Of Magnesia) 30 ml PO DAILY [facility] Metoprolol Tartrate (Lopressor (Beta Ramona)) 75 mg PO BID [facility] Non-Formulary Medication (Esomeprazole Mag Trihydrate) 20 mg PO DAILY [facility] Non-Formulary Medication (Clobetasol/Niacinamide [Clobetasol 0.05%-Niacinamid 4%]) 60 gm TP DAILY PRN PRN PRN Reason: skin Ondansetron HCl (Zofran) 4 mg IV Q6H PRN PRN PRN Reason: NAUSEA Oxycodone HCl (Oxyir) 5 mg PO Q6H PRN PRN PRN Reason: Pain Score 6-10/10 Polyethylene Glycol (Miralax) 17 gm PO DAILY PRN PRN Reason: Constipation Promethazine HCl (Phenergan) 6.25 mg IV Q6H PRN PRN PRN Reason: NAUSEA/VOMITING Senna/Docusate Sodium (Senokot-S, Alla-Colace) 1 tablet PO BID [facility] Assessment/Plan All Active Problems (Last Reviewed 04/03/19 @ 15:[address] Mitch Hernandez, DO) Urinary tract infection (Acute) Sepsis (Acute) Sinus tachycardia by electrocardiogram (Acute) Acute kidney injury (Acute) Hyperkalemia (Acute) Constipation (Acute) Lichen sclerosus (Acute) Dyspnea (Acute) Orthopnea (Acute) Acute bronchitis (Resolved) Chills (Resolved) Episodic confusion (Resolved) Fall at home (Resolved) Leukocytosis (Resolved) Malaise (Resolved) Screening for intestinal cancer (Resolved) Sepsis (Resolved) Urinary tract infection (Resolved) 1. Intractable nausea and vomiting, secondary to severe constipation- CT shows retained stool. Final Read pending. patient vomited up lactulose in the ER, next will attempt enema and suppositories. Will aggressively provide antiemetics and attempt further oral meds. KUB in AM. 2. Acute kidney injury on CKDIII secondary to nausea vomiting and decreased p.o. intake-we will provide IV fluids, will hold LAILA inhibitor and Lasix. For hyperkalemia attempted to provide Kayexalate however the patient vomited it up. After we are better able to control her nausea we can attempt to give her more Kayexalate. She did receive albuterol in the emergency room. If we are unable to provide Kayexalate we can try IV calcium gluconate. 3. Chronic atrial fibrillation-mild tachycardia. Probably related to dehydration and nausea vomiting abdominal pain. Unclear if she was able to keep down oral meds at home today. Lopressor 5mg IV x1. Will provide hydration, continue her home medications including Cardizem, metoprolol, and Eliquis. 4. Morbid obesity - adolescent specialist eval when tolerating PO. 5. HTN - stable 6. Hx recurrent pancreatitis - lipase negative. 7. Chronic pain 2/2 RA - oxycodone likely contributing to constipation. Follows pain management. DVT ppx: magaly MORALES planning: PTOT, was at home with home health care. they sent her as they felt they could not manage her. May need to consider SNF. This patient was seen by Suresh Salgado PA-C under the supervision of Doctor Sellers.
[2019-04-19] MEDS: Magnesium Citrate 300 ML PO (18:45)
[2019-04-19] MEDS: Metoprolol Tartrate 5 MG/5 ML Vial IV (18:45)
[2019-04-19] MEDS: APIXABAN 5 MG TABLET PO (22:05)
[2019-04-19] MEDS: Metoprolol Tartrate 50 MG Tablet 75 MG PO (22:05)
[2019-04-19] MEDS: Senna/Docusate Sodium 1 Tablet PO (22:05)
[2019-04-19] MEDS: dilTIAZem CD 180 MG Capsule PO (22:05)
[2019-04-20] VITALS (14 sets, daily range): BP systolic 74–94; BP diastolic 44–63; PULSE 60–140; RESP 18; TEMP 36.6–36.8; O2SAT 84–100
[2019-04-20] MEDS: proMETHazine 25 MG/ML Syringe 6.25 MG IV (00:08)
[2019-04-20 00:46] LABS: Anion Gap 5 (5-15); BUN 63 mg/dL (7-18); BUN/Creat Ratio 25.2 RATIO (10-20); Calcium,Total 9.1 mg/dL (8.5-10.1); Chloride 112 mmol/L (98-107); EST Glomerular Filtration Rate 20 mL/min (>60); Est Glom Filt Rate - Afr Amer 24 mL/min (>60); Estimated Creatinine Clearance 16.08 ml/min; Glucose 91 mg/dL (74-106); Potassium 5.6 mmol/L (3.5-5.1); Sodium Level 140 mmol/L (136-145)
[2019-04-20] MEDS: 0.9% Normal Saline 1,000 ML 125 ML IV ×3 (01:55→20:14)
--- NOTE | 2019-04-20 05:55 | RAD_ITS ---
STUDY: X-RAY - ABDOMEN/PELVIS REASON FOR EXAM: Female, 73 years old. Constipation. TECHNIQUE: AP supine and upright views. COMPARISON: CT abdomen and pelvis 04/19/2019. FINDINGS: Normal visualized lung bases. Faint contrast opacification of the colon without visible large retention of fecal contents to suspect constipation. No bowel obstruction. There is no demonstrated free abdominal air. The visualized liver, spleen and kidneys are grossly normal in size and morphology. Normal soft tissue structures. Pedicular screws and cherelle in the the left L3 down to L5 are unchanged. RAD/Abd Decub and/or Erect(Portabl IMPRESSION: No suspicious constipation or acute abnormality in the abdomen and pelvis. Electronically Signed: Bharath Edwards MD at 10:46 EST , Service support ,
[2019-04-20 07:22] LABS: Absolute Lymphocyte Count 0.79 X10^3/uL (0.83-4.51); Absolute Neutrophil Count 6.9 X10^3/uL (2.0-7.7); Basophil# 0.01 X10^3/uL; Basophil% 0.1 % (0-1); Eosinophil# 0.04 X10^3/uL; Eosinophils% 0.5 % (0-5); Hemoglobin 10.7 g/dL (12.0-15.0); Lymphocyte # 0.79 X10^3/ul (4.0); Lymphocyte % 9.4 % (19-41); Mean Corp Hgb Conc 31.5 g/dL (32-36); Mean Corpuscular Hgb 29.6 pg (27.0-32.0); Mean Corpuscular Volume 94.2 fL (81-99); Mean Platelet Vol. 10.5 fl (6.2-12.0); Monocyte# 0.69 X10^3/uL; Monocyte% 8.2 % (0-10); NRBC Flagged by Analyzer 0 % (0-5); Neutrophil # 6.85 X10^3/uL (2.7-7.7); Neutrophil % 81.1 % (47-70); Platelet Count 181 K/mm3 (150-450); RBC Distribution Width CV 15.6 % (11.6-14.6); Red Blood Count 3.61 M/mm3 (4.2-5.4); White Blood Count 8.4 K/mm3 (4.4-11.0)
[2019-04-20 07:56] LABS: Anion Gap 3 (5-15); BUN 56 mg/dL (7-18); BUN/Creat Ratio 24.8 RATIO (10-20); Calcium,Total 8.9 mg/dL (8.5-10.1); Chloride 114 mmol/L (98-107); Creatinine, Serum 2.26 mg/dL (0.55-1.02); EST Glomerular Filtration Rate 22 mL/min (>60); Est Glom Filt Rate - Afr Amer 27 mL/min (>60); Estimated Creatinine Clearance 17.79 ml/min; Glucose 96 mg/dL (74-106); Magnesium 2.4 mg/dL (1.6-2.6); Potassium 5.6 mmol/L (3.5-5.1); Sodium Level 143 mmol/L (136-145); Thyroid Stim Hormone (TSH) 1.56 uIU/mL (0.358-3.74)
[2019-04-20] MEDS: Senna/Docusate Sodium 1 Tablet PO ×2 (10:24→22:17)
[2019-04-20] MEDS: Pantoprazole Sodium 20 MG Tablet PO (10:24)
[2019-04-20] MEDS: APIXABAN 5 MG TABLET PO ×2 (10:24→22:17)
[2019-04-20] MEDS: Allopurinol 100 MG Tablet PO (10:24)
[2019-04-20] MEDS: Aspirin E.C. 81 MG Tablet PO (10:25)
[2019-04-20] MEDS: Magnesium Hydroxide 30 ML UDC PO (10:26)
[2019-04-20] MEDS: dilTIAZem CD 180 MG Capsule PO (12:26)
--- NOTE | 2019-04-20 12:50 | CASEMGMT ---
Readmission chart review: Pt was initially admitted 04/03-04/05/19 for Afib RVR. Pt states that she f/u with physicians as per scheduled on 04/08 and 04/09/19. Pt states that she has been taking her meds as prescribed but that she has had n/v and unsure how much she is keeping down of her meds. Pt c/o fatigue and weakness and had declined HHC when discharged on 04/05/19 but her [facility] had then called and [facility], [facility]/OT and pt states they first saw her yesterday. Per friends, pt has been struggling to care for self at home but they have been helping as much as they can. Pt was readmitted 04/19/19 for constipation, hyperkalemia, and CYRUS. Pt is still in chronic afib but will not be cardioverted until anti-coagulated for a longer period of time. Pt/friends are interested in SNF possibly at discharge. CM to follow PT/OT and pt provided with a list of local SNF's at this time. Pt voices no further questions/concerns/needs at this time. SStjaycee RN CM
--- NOTE | 2019-04-20 14:59 | PN_ITS ---
Patient Problems: Active and Suspected Problems (Last Reviewed 04/03/19 @ 15:[address] Mitch Hernandez, DO) Acute kidney injury (Acute) Hyperkalemia (Acute) Constipation (Acute) Reason for Visit: Intractable nausea and vomiting. Subjective: Pt resting comfortably in bed NAD. She is upset that she is not seeing cardiology. She feels that all of her problems are related to afib and is anticipating a cardioversion. She has not yet been anticoagulated for a month. She has had resolution of her constipation, nausea and vomiting as of today. She has had 4 bowel movements. She refused to take kayexalate for her high potassium. She has tolerated PO today. Vitals/I&O's: Vital Signs Temp Pulse Resp BP Pulse Ox 97.9 F 112 H 18 92/58 L 94 04/20/19 10:00 04/20/19 13:12 04/20/19 10:00 04/20/19 10:26 04/20/19 13:12 Oxygen Flow Rate (L/min) 2 Oxygen Delivery Method Room Air Weight: 225 lb 12.794 oz Body Mass Index (BMI) 39.9 Intake and Output for Last 24 Hours 04/18/19 04/19/19 04/20/19 23:59 23:59 23:59 Intake Total 635.05 / 635.05 3057.08 / 3057.08 Balance 635.05 / 635.05 3057.08 / 3057.08 General: Alert, Oriented x3, Cooperative HEENT: Atraumatic, PERRLA, EOMI, Normocephalic Neck: Supple, No JVD, Negative Carotid Bruits Lungs: Clear to auscultation, Normal air movement Cardiovascular: Regular rate, No murmurs Abdomen: Bowel Sounds Present, Soft, Non Tender Extremities: No edema, Capillary Refill Less than 3 Seconds Skin: No rashes, No breakdown Musculoskeletal: No Tenderness to Palpation of Joints or Extremities Neurological: Cranial nerves II-XII grossly intact Psych/Mental Status: Normal Affect, Appropriate, Alert and oriented to time, place, person, mood and affect Laboratory Results 04/19/19 15:00: Sodium 139, Potassium 6.3 H*, Chloride 109 H, Carbon Dioxide 25.0, Anion Gap 5, BUN 68 H, Creatinine 2.86 H, Estim Creat Clear Calc 14.06, Est GFR (MDRD) Af Amer 21 L, Est GFR (MDRD) Non-Af 17 L, BUN/Creatinine Ratio 23.8 H, Glucose 122 H, Calcium 9.7, Total Bilirubin 0.40, AST 12 L, ALT 21, Alkaline Phosphatase 159 H, Total Protein 7.2, Albumin 2.9 L, Globulin 4.3 H, Albumin/Globulin Ratio 0.7 L, Lipase 170 04/19/19 16:30: Urine Color Yellow, Urine Clarity Sl. Cloudy, Urine pH 5.0, Ur Specific [place] 1.015, Urine Protein Negative, Urine Glucose (UA) Normal, Urine Ketones Negative, Urine Occult Blood 250 H, Urine Nitrite Negative, Urine Bilirubin Negative, Urine Urobilinogen Normal, Ur Leukocyte Esterase 25 H, Urine RBC 0-5 SEEN, Urine WBC 0 SEEN, Ur Squamous Epith Cells 0 SEEN, Urine Bacteria 0 SEEN, Urine Mucus 0 SEEN 04/20/19 00:12: Sodium 140, Potassium 5.6 H, Chloride 112 H, Carbon Dioxide 23.0, Anion Gap 5, BUN 63 H, Creatinine 2.50 H, Estim Creat Clear Calc 16.08, Est GFR (MDRD) Af Amer 24 L, Est GFR (MDRD) Non-Af 20 L, BUN/Creatinine Ratio 25.2 H, Glucose 91, Calcium 9.1 04/20/19 06:52: Sodium 143, Potassium 5.6 H, Chloride 114 H, Carbon Dioxide 26.0, Anion Gap 3 L, BUN 56 H, Creatinine 2.26 H, Estim Creat Clear Calc 17.79, Est GFR (MDRD) Af Amer 27 L, Est GFR (MDRD) Non-Af 22 L, BUN/Creatinine Ratio 24.8 H, Glucose 96, Calcium 8.9, Magnesium 2.4, TSH 1.56 04/20/19 06:52: WBC 8.4, RBC 3.61 L, Hgb 10.7 L, Hct 34.0 L, MCV 94.2, MCH 29.6, MCHC 31.5 L, RDW Std Deviation 54.0 H, RDW Coeff of Patel 15.6 H, Plt Count 181, MPV 10.5, Immature Gran % (Auto) 0.700, Neut % (Auto) 81.1 H, Lymph % (Auto) 9.4 L, [place] % (Auto) 8.2, Eos % (Auto) 0.5, Baso % (Auto) 0.1, Absolute Neuts (auto) 6.9, Absolute Lymphs (auto) 0.79 L, Nucleated RBC % 0 Current Medications Allopurinol (Zyloprim) 100 mg PO DAILY [facility] Last Admin: 04/20/19 10:24 Dose: 100 mg Documented by: Apixaban (Eliquis) 5 mg PO BID [facility] Last Admin: 04/20/19 10:24 Dose: 5 mg Documented by: Aspirin (Ecotrin) 81 mg PO DAILY@0800 [facility] Last Admin: 04/20/19 10:25 Dose: 81 mg Documented by: Bisacodyl (Dulcolax) 10 mg RECTAL DAILY PRN PRN Reason: Constipation Clobetasol Propionate (Temovate Cream (Bkc)) 1 applic TOPICAL DAILY PRN PRN PRN Reason: Skin Diltiazem HCl (Cardizem Cd) 180 mg PO BID [facility] Last Admin: 04/20/19 12:26 Dose: 180 mg Documented by: Sodium Chloride () 1,000 mls @ 125 mls/hr IV .Q8H [facility] Last Infusion: 04/20/19 14:30 Dose: 125 mls/hr Documented by: Sodium Chloride () 250 mls @ 15 mls/hr IV .[id number] PRN PRN Reason: Saline Flush Magnesium Hydroxide (Milk Of Magnesia) 30 ml PO DAILY [facility] Last Admin: 04/20/19 10:26 Dose: 30 ml Documented by: Metoprolol Tartrate (Lopressor (Beta Ramona)) 75 mg PO BID [facility] Last Admin: 04/20/19 10:26 Dose: Not Given Documented by: Ondansetron HCl (Zofran) 4 mg IV Q6H PRN PRN PRN Reason: NAUSEA Last Admin: 04/19/19 19:32 Dose: 4 mg Documented by: Oxycodone HCl (Oxyir) 5 mg PO Q6H PRN PRN PRN Reason: Pain Score 6-10/10 Pantoprazole Sodium (Protonix) 20 mg PO DAILY [facility] Last Admin: 04/20/19 10:24 Dose: 20 mg Documented by: Polyethylene Glycol (Miralax) 17 gm PO DAILY PRN PRN Reason: Constipation Senna/Docusate Sodium (Senokot-S, Alla-Colace) 1 tablet PO BID [facility] Last Admin: 04/20/19 10:24 Dose: 1 tablet Documented by: Sodium Chloride () 10 - 40 ml IV UD PRN PRN Reason: SALINE FLUSH STROKE Vital Signs/Narrative: Vital Signs Pulse Pulse Ox 04/20/19 13:12 112 H 94 Medical Necessity - Tobacco Use Smoking Status: Never smoker Tobacco Use: Non-smoker Assessment/Plan All Active Problems (Last Reviewed 04/03/19 @ 15:[address] Mitch Hernandez, DO) Urinary tract infection (Acute) Sepsis (Acute) Sinus tachycardia by electrocardiogram (Acute) Acute kidney injury (Acute) Hyperkalemia (Acute) Constipation (Acute) Lichen sclerosus (Acute) Dyspnea (Acute) Orthopnea (Acute) Acute bronchitis (Resolved) Chills (Resolved) Episodic confusion (Resolved) Fall at home (Resolved) Leukocytosis (Resolved) Malaise (Resolved) Screening for intestinal cancer (Resolved) Sepsis (Resolved) Urinary tract infection (Resolved) 1. Intractable nausea and vomiting, secondary to severe constipation, dehydration - pt on chronic pain meds oxy without constipation meds at home. Continue daily bowel regimen. 4x bm since admission 2. Acute kidney injury on CKDIII secondary to nausea vomiting and dehydration with decreased p.o. intake-continue fluids. pt refuses kayex. has received albuterol treatments. Trending down. Recheck tonight. Consider calcium gluc if persistently elevated. 3. Chronic atrial fibrillation, RVR - cardiology consulted. pt has been without metoprolol and cardizem with intractable n/v. Restart cardizem today. Check BP (bordlerine) if stable resume metoprolol. Pt awaiting outpatient cardioversion. 4. Morbid obesity - public service officer eval when tolerating PO. 5. HTN - borderline low 6. Hx recurrent pancreatitis - lipase negative. 7. Chronic pain 2/2 RA - oxycodone likely contributing to constipation as above. Follows pain management. DVT ppx: magaly MORALES planning: SNF, pt cannot take care of herself at home regardless of [facility]. This patient was seen by Suresh Salgado PA-C under the supervision of Doctor Alvarez
--- NOTE | 2019-04-20 15:09 | CASEMGMT ---
SW spoke with patient regarding which SNF she would like. [facility] and they are full. DEREK spoke with Em in [facility] and she said they would have a bed for patient. DEREK spoke with patient and let her know [facility] full, but [facility] would have a bed. She was in agreement with [facility]. Plan: [facility] under skilled level of care when medically ready Tabatha VIDES
--- NOTE | 2019-04-20 15:26 | CON.PCM_ITS ---
Problem List (1) Paroxysmal atrial fibrillation Status: Chronic (2) Nonrheumatic mitral (valve) prolapse Status: Chronic (3) Nonrheumatic mitral (valve) insufficiency Status: Chronic (4) Hyperlipidemia Status: Chronic Qualifiers: Hyperlipidemia type: unspecified Qualified Code(s): E78.5 - Hyperlipidemia, unspecified (5) Benign hypertension Status: Chronic (6) Constipation Status: Acute (7) Acute kidney injury Status: Acute (8) Hyperkalemia Status: Acute (9) Morbid obesity with BMI of 40.0-44.9, adult Status: Chronic Reason for Consult Date of Consultation: 04/20/19 History of Present Illness: The patient is a 73 year old white female who presents for cardiovascular consultation based upon concerns of ongoing atrial fibrillation status post previous EPS/RFA superimposed upon a history of mitral valve prolapse/MR as well as hyperlipidemia, hypertension, and constipation. Have been followed for her underlying cardiac dysrhythmias. In January 2019 she was noted to be in sinus rhythm. However since that time, during subsequent evaluations at [facility], she is noted to have returned to atrial fibrillation. She has been undergoing evaluation care for her atrial fibrillation. She has been treated medically. This is included rate control therapy and anticoagulant therapy. She was being considered for future evaluation, when she was on adequate anticoagulant therapy, for an attempt at synchronized biphasic DC cardioversion. She was hospitalized earlier this month for a report of UTI and sepsis syndrome. During that time she was evaluated by cardiology. The recommendations were for continued rate control and anticoagulant therapy and consideration for future synchronized biphasic DC cardioversion. She was released home. However, she presented to the hospital for concerns of a combination of symptoms including nausea, emesis, abdominal discomfort, and constipation-for potentially 2 weeks. There is concerned that her abdominal complaints may have been related to her pain management/narcotic medication. During her hospitalization she has noted continued atrial fibrillation. She is also been noted to have concerns of elevated creatinine levels and elevated potassium levels. She has been undergoing evaluation care per internal medicine. She has denied any acute chest discomfort or acute respiratory issues. She has denied any acute sensation with respect to a change in underlying cardiac rate or rhythm. There is been no near syncope or syncope. She states that she has limited mobility. She believes this is based upon a combination of her atrial fibrillation and her musculoskeletal discomfort, etc. During her hospitalization she did have an ECG performed. She was in atrial fibrillation with left axis deviation with poor R wave progression and nonspecific T wave abnormality. Her cardiac rhythm has demonstrated atrial fibrillation. She has had follow-up of her laboratory studies which have demonstrated elevation of her BUN and creatinine levels and potassium levels. They have demonstrated gradual improvement with her ongoing therapy. She states she is being considered for future transfer to an extended care facility for continued OT/PT therapy. Past Medical History Allergies/Adverse Reactions: Allergies Penicillins Allergy (Verified 03/08/19 10:56) Hives atorvastatin [From Lipitor] Adverse Reaction (Severe, Verified 03/08/19 10:56) Elevated LFT Home Medications: Ambulatory Orders Medication Instructions Recorded Esomeprazole Mag Trihydrate 20 mg PO DAILY 08/14/16 [Nexium] Oxycodone HCl/Acetaminophen 1 tab PO BID 05/01/17 [Percocet 5-325] allopurinol 100 mg tablet 100 mg PO DAILY 01/25/19 diltiazem HCl 180 mg 180 mg PO BID cap 03/08/19 capsule,extended release 24 hr ezetimibe 10 mg tablet 10 mg PO QHS 03/08/19 lisinopril 10 mg tablet 10 mg PO DAILY tab 03/08/19 Clobetasol/Niacinamide [Clobetasol 60 gm TP DAILY PRN PRN 04/03/19 0.05%-Niacinamid 4%] Apixaban [Eliquis] 5 mg PO BID 04/19/19 Aspirin E.C. [Ecotrin] 81 mg PO DAILY@0800 04/19/19 Furosemide 40 mg PO DAILY 04/19/19 Metoprolol Tartrate [Lopressor 75 mg PO BID 04/19/19 (beta lenora)] Past Medical History (Chronic Problems): Chronic Problems (Last Reviewed 04/03/19 @ 15:[address] 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 - *Family History Maternal Family History: Family History (Last Reviewed 04/19/19 @ 18:23 by CARIN Llamas) Sister Hypertension Other Arthritis Cancer Diabetes History Items: Renal Disease - age 70 Paternal Family History: Family History (Last Reviewed 04/19/19 @ 18:23 by CARIN Llamas) Sister Hypertension Other Arthritis Cancer Diabetes History Items: - - age 45 cirrhosis Lives: Alone Smoking Status: Never smoker Tobacco Use: Non-smoker Alcohol: None Drugs: None Review of Systems - Review of Systems General: Denies: Fever, Night Sweats, Fatigue Cardiovascular: Denies: Chest Discomfort, Shortness of Breath, Orthopnea, PND, Peripheral Edema, Palpitations, Lightheadedness, Dizziness, Near Syncope, Syncope Respiratory: Denies: Cough, Sputum Production, Hemoptysis Gastrointestinal: Reports: Abdominal Discomfort, Nausea, Emesis, Constipation. Denies: Hematemesis, Hematochezia, Melena Genitourinary: Denies: Dysuria, Hematuria Skin: Denies: Rash Subjectve: This is a 73-year-old obese white female who appears to be resting comfortably at the moment in no acute distress. Objective: Vital Signs Temp Pulse Resp BP Pulse Ox 97.9 F 112 H 18 92/58 L 100 04/20/19 10:00 04/20/19 13:12 04/20/19 10:00 04/20/19 10:26 04/20/19 14:44 Oxygen Flow Rate (L/min) 2 Oxygen Delivery Method Room Air Weight: 225 lb 12.794 oz Body Mass Index (BMI) 39.9 Intake and Output for Last 24 Hours 04/18/19 04/19/19 04/20/19 23:59 23:59 23:59 Intake Total 635.05 / 635.05 3057.08 / 3057.08 Balance 635.05 / 635.05 3057.08 / 3057.08 General: Awake, Alert, Oriented x 3, Cooperative, No Acute Distress, Obese HEENT: Atraumatic, Normocephalic, PERRL, EOMI, Sclera Non Icteric Oral: Moist Mucosa Neck: Supple, Good ROM, No JVD Lungs: Clear to auscultation Cardiovascular: Irregular Rhythm, Normal S1, Normal S2 Abdomen: Bowel Sounds Present, Soft, Non Tender, Obese Extremities: Mild RLE Edema, Mild LLE Edema Neurological: No Focal Motor or Sensory Deficit Psych/Mental Status: Appropriate 04/19/19 15:00: Sodium 139, Potassium 6.3 H*, Chloride 109 H, Carbon Dioxide 25.0, Anion Gap 5, BUN 68 H, Creatinine 2.86 H, Est GFR (MDRD) Af Amer 21 L, Est GFR (MDRD) Non-Af 17 L, BUN/Creatinine Ratio 23.8 H, Glucose 122 H, Calcium 9.7, Total Bilirubin 0.40 04/19/19 16:30: Urine Color Yellow, Urine Clarity Sl. Cloudy, Urine pH 5.0, Ur Specific [place] 1.015, Urine Protein Negative, Urine Glucose (UA) Normal, Urine Ketones Negative, Urine Occult Blood 250 H, Urine Nitrite Negative, Urine Bilirubin Negative, Urine Urobilinogen Normal, Ur Leukocyte Esterase 25 H, Urine RBC 0-5 SEEN, Urine WBC 0 SEEN 04/20/19 00:12: Sodium 140, Potassium 5.6 H, Chloride 112 H, Carbon Dioxide 23.0, Anion Gap 5, BUN 63 H, Creatinine 2.50 H, Est GFR (MDRD) Af Amer 24 L, Est GFR (MDRD) Non-Af 20 L, BUN/Creatinine Ratio 25.2 H, Glucose 91, Calcium 9.1 04/20/19 06:52: Sodium 143, Potassium 5.6 H, Chloride 114 H, Carbon Dioxide 26.0, Anion Gap 3 L, BUN 56 H, Creatinine 2.26 H, Est GFR (MDRD) Af Amer 27 L, Est GFR (MDRD) Non-Af 22 L, BUN/Creatinine Ratio 24.8 H, Glucose 96, Calcium 8.9, Magnesium 2.4 04/20/19 06:52: WBC 8.4, RBC 3.61 L, Hgb 10.7 L, Hct 34.0 L, MCV 94.2, MCH 29.6, MCHC 31.5 L, Plt Count 181, MPV 10.5, Immature Gran % (Auto) 0.700, Neut % (Auto) 81.1 H, Lymph % (Auto) 9.4 L, [place] % (Auto) 8.2, Eos % (Auto) 0.5, Baso % (Auto) 0.1, Absolute Neuts (auto) 6.9, Nucleated RBC % 0 Rhythm: Atrial fibrillation EKG: As noted above Echocardiogram in 11/25/2018: The study was technically difficult. Contrast injection was performed. Left ventricular systolic function is normal. The estimated ejection fraction is 70 %. The left atrium is severely enlarged. There is moderate mitral annular calcification. Extension of the mitral annular calcification onto the posterior mitral valve leaflet peer Moderate focal mitral valve calcification of the anterior leaflet. Mild mitral valve prolapse. Moderate (2+) mitral valve insufficiency. Mild tricuspid valve insufficiency. Trivial aortic valve insufficiency. Mild (1+) pulmonic valve insufficiency. Calcified aortic root. Right ventricular systolic pressure estimated to be 42 mmHg. Unable to assess diastolic dysfunction. Stress test: 04/17/2005 TECHNIQUE The patient was injected with 14.2 mCi of Tc99m Cardiolite and resting SPECT images were acquired in the horizontal long, vertical long, and short axes views. The patient subsequently underwent stress using a Donald protocol and exercised 5 minutes and 1 second, reaching a peak heart rate of 144, which is 90% of maximum predicted. At peak stress, the patient was injected with 39 mCi of Tc99m Cardiolite and stress SPECT images were acquired in the horizontal long, vertical long, and short axes views. INTERPRETATION Resting images demonstrate a small subtle decrease in apical activity which appears to improve with stress with ?brightening? at end systole by gated SPECT and normal wall motion consistent with apical thinning. The remainder of the left ventricle appears to be well perfused both at rest and with stress. There are no significant fixed defects to suggest infarct. There are no reversible defects developing with stress to suggest inducible ischemia. Estimated ejection fraction by gated SPECT imaging was 78% with normal wall motion and brightening in all segments. CONCLUSION 1. Small subtle decrease in apical activity at rest improving with stress consistent with apical thinning. 2. No fixed defects to suggest infarct. Cardiac cath: 07/13/2008 Conclusion 1. Normal left ventricular systolic function, ejection traction 65%. 2 Mild mitral annular calcification 1. Moderate mitral valve prolapse with mild insufficiency. 4. Angiographically normal coronaries. Electrophysiology study: 11/02/2008: Baseline persistent atrial fibrillation with controlled ventricular response with post RFA sinus rhythm with normal intracardiac intervals with no inducible PSVT, VT, or VF Holter monitor: 08/16/2012: Conclusion: Demonstrating sinus rhythm with periods of atrial tachyarrhythmia Holter monitor: 2-17-2020: Conclusion: Atrial fibrillation with rare PVCs Assessment/Plan 1. Atrial fibrillation The patient remains in atrial fibrillation. At the moment she will need to continue rate control therapy and anticoagulant therapy. Once the patient is symptomatically proved from her current noncardiovascular condition and her metabolic state with respect to her renal function/electrolytes are improved then, if she has not had any interruption in her anticoagulant therapy for a minimum of 4 weeks, she could be considered for an attempt at regaining sinus rhythm with synchronized biphasic DC cardioversion. Depending upon her response to such a procedure she may need to be considered as to whether or not, if she returns to atrial fibrillation, she would need to be considered as to whether or not she is a candidate for any form of antiarrhythmic therapy versus repeat EP consultation for consideration for repeat EPS/RFA. 2. Atrial valve prolapse/insufficiency She underwent transthoracic echocardiogram as previously noted. At the present time she will need to be followed by history, exam, and echocardiogram as deemed appropriate. 3. Hyperlipidemia She should continue medical management as deemed appropriate. 4. Hypertension Her blood pressure need to be followed. Her medications can be adjusted as deemed appropriate. 5. Constipation She has been undergoing evaluation and care for her concerns of constipation. If this is secondary to her pain management/narcotic medication than they may need to be discontinued and she may need to find alternative therapies for her chronic discomfort. 6. Renal insufficiency Her BUN/creatinine are being followed. They are gradually decreasing. 7. Electrolyte disturbance/hyperkalemia She continues evaluation care for her hyperkalemia. Her potassium level is gradually decreasing. 8. Obesity Unfortunately she remains obese. This is not helping with respect to her cardiovascular and noncardiac condition. She has been counseled on dietary management. Unfortunately based upon her chronic pain condition she is not very active with respect to being able to increase her exercise activity. Comment: The patient's case has been discussed and reviewed with the patient and the [facility] staff. This note was generated using a voice recognition system and there may be incorrect words, spelling or punctuation that were not noted when reviewing the office note prior to saving.
[2019-04-20] MEDS: oxyCODONE 5 MG Tablet PO (18:21)
[2019-04-21] VITALS (28 sets, daily range): BP systolic 62–118; BP diastolic 48–104; PULSE 94–140; RESP 15–23; TEMP 36.6–37; O2SAT 95–99
[2019-04-21] MEDS: 0.9% Normal Saline 1,000 ML 125 ML IV ×2 (05:00→13:14)
[2019-04-21] MEDS: 0.9% Saline Lock 10 ML Syringe IV (05:09)
[2019-04-21 08:21] LABS: Absolute Lymphocyte Count 0.92 X10^3/uL (0.83-4.51); Absolute Neutrophil Count 4.8 X10^3/uL (2.0-7.7); Basophil# 0.02 X10^3/uL; Basophil% 0.3 % (0-1); Eosinophil# 0.05 X10^3/uL; Eosinophils% 0.8 % (0-5); Hematocrit 33.5 % (37-47); Hemoglobin 10.7 g/dL (12.0-15.0); Lymphocyte # 0.92 X10^3/ul (4.0); Lymphocyte % 14.5 % (19-41); Mean Corp Hgb Conc 31.9 g/dL (32-36); Mean Corpuscular Hgb 29.3 pg (27.0-32.0); Mean Corpuscular Volume 91.8 fL (81-99); Mean Platelet Vol. 10.6 fl (6.2-12.0); Monocyte# 0.52 X10^3/uL; Monocyte% 8.2 % (0-10); NRBC Flagged by Analyzer 0 % (0-5); Neutrophil # 4.79 X10^3/uL (2.7-7.7); Neutrophil % 75.4 % (47-70); Platelet Count 153 K/mm3 (150-450); RBC Distribution Width CV 15.8 % (11.6-14.6); RBC Distribution Width SD 52.7 fl (35.1-43.9); Red Blood Count 3.65 M/mm3 (4.2-5.4); White Blood Count 6.4 K/mm3 (4.4-11.0)
[2019-04-21] MEDS: APIXABAN 5 MG TABLET PO ×2 (08:37→21:20)
[2019-04-21] MEDS: Aspirin E.C. 81 MG Tablet PO (08:37)
[2019-04-21] MEDS: Magnesium Hydroxide 30 ML UDC PO (08:38)
[2019-04-21] MEDS: Senna/Docusate Sodium 1 Tablet PO ×2 (08:38→21:20)
[2019-04-21] MEDS: Allopurinol 100 MG Tablet PO (08:38)
[2019-04-21] MEDS: Pantoprazole Sodium 20 MG Tablet PO (08:38)
--- NOTE | 2019-04-21 09:49 | PCM.PN.CARD ---
Subjectve: The patient is awake and alert. She has had minimal ambulation. She states she cannot sense her atrial fibrillation/rapid rates when they occur. Objective: Vital Signs Temp Pulse Resp BP Pulse Ox 98.4 F 140 H 16 103/65 99 04/21/19 08:40 04/21/19 08:40 04/21/19 08:40 04/21/19 08:40 04/21/19 08:40 Oxygen Flow Rate (L/min) 2 Oxygen Delivery Method Room Air Weight: 225 lb 12.794 oz Body Mass Index (BMI) 39.9 Intake and Output for Last 24 Hours 04/19/19 04/20/19 04/21/19 23:59 23:59 23:59 Intake Total 635.05 / 635.05 3915.00 / 4165.00 1250 / 1250 Balance 635.05 / 635.05 3915.00 / 4165.00 1250 / 1250 General: Awake, Alert, Oriented x 3, Cooperative, No Acute Distress, Obese HEENT: Atraumatic, Normocephalic, PERRL, EOMI, Sclera Non Icteric Oral: Moist Mucosa Neck: Supple, Good ROM, No JVD Lungs: Clear to auscultation Cardiovascular: Irregular Rhythm, Normal S1, Normal S2 Abdomen: Bowel Sounds Present, Soft, Non Tender Extremities: Trace RLE Edema, Trace LLE Edema Psych/Mental Status: Appropriate 04/21/19 08:05: WBC 6.4, RBC 3.65 L, Hgb 10.7 L, Hct 33.5 L, MCV 91.8, MCH 29.3, MCHC 31.9 L, Plt Count 153, MPV 10.6, Immature Gran % (Auto) 0.800, Neut % (Auto) 75.4 H, Lymph % (Auto) 14.5 L, [place] % (Auto) 8.2, Eos % (Auto) 0.8, Baso % (Auto) 0.3, Absolute Neuts (auto) 4.8, Nucleated RBC % 0 Rhythm: Atrial fibrillation with rapid ventricular response Medical Necessity - Tobacco Use Smoking Status: Never smoker Tobacco Use: Non-smoker Assessment/Plan 1. Atrial fibrillation The patient remains in atrial fibrillation. At the moment she will need to continue rate control therapy and anticoagulant therapy. However, as the patient has had issues with her rate control medications and hypotension and still issues with atrial fibrillation with rapid ventricular response she will attempt an additional medical management adjustment. This will include continuation of her diltiazem therapy but the addition of amiodarone therapy initially IV with subsequent change to oral if tolerated. Hopefully this combination will help with her rate and minimize negative effects on her blood pressure. Once the patient is symptomatically proved from her current noncardiovascular condition and her metabolic state with respect to her renal function/electrolytes are improved then, if she has not had any interruption in her anticoagulant therapy for a minimum of 4 weeks, she could be considered for an attempt at regaining sinus rhythm with synchronized biphasic DC cardioversion. Depending upon her response to such a procedure she may need to be considered as to whether or not, if she returns to atrial fibrillation, she would need to be considered as to whether or not she is a candidate for any form of antiarrhythmic therapy versus repeat EP consultation for consideration for repeat EPS/RFA. 2. Atrial valve prolapse/insufficiency She underwent transthoracic echocardiogram as previously noted. At the present time she will need to be followed by history, exam, and echocardiogram as deemed appropriate. 3. Hyperlipidemia She should continue medical management as deemed appropriate. 4. Hypertension Her blood pressure need to be followed. Her medications can be adjusted as deemed appropriate. 5. Constipation She has been undergoing evaluation and care for her concerns of constipation. If this is secondary to her pain management/narcotic medication than they may need to be discontinued and she may need to find alternative therapies for her chronic discomfort. 6. Renal insufficiency Her BUN/creatinine are being followed. They are gradually decreasing. 7. Electrolyte disturbance/hyperkalemia She continues evaluation care for her hyperkalemia. 8. Obesity Unfortunately she remains obese. This is not helping with respect to her cardiovascular and noncardiac condition. She has been counseled on dietary management. Unfortunately based upon her chronic pain condition she is not very active with respect to being able to increase her exercise activity. Comment: The patient's case has been discussed and reviewed with the patient. This note was generated using a voice recognition system and there may be incorrect words, spelling or punctuation that were not noted when reviewing the office note prior to saving.
[2019-04-21 10:22] LABS: Anion Gap 8 (5-15); BUN 36 mg/dL (7-18); BUN/Creat Ratio 24.7 RATIO (10-20); Calcium,Total 8.5 mg/dL (8.5-10.1); Chloride 114 mmol/L (98-107); Creatinine, Serum 1.46 mg/dL (0.55-1.02); EST Glomerular Filtration Rate 37 mL/min (>60); Est Glom Filt Rate - Afr Amer 45 mL/min (>60); Estimated Creatinine Clearance 27.54 ml/min; Glucose 79 mg/dL (74-106); Potassium 6.3 mmol/L (3.5-5.1); Sodium Level 141 mmol/L (136-145)
[2019-04-21] MEDS: dilTIAZem CD 180 MG Capsule PO ×2 (10:47→21:20)
[2019-04-21] MEDS: Amiodarone 360 MG in Dextrose 5% Viaflo Bag 192.8 ML 33.3 MG CONT INF (11:08)
[2019-04-21] MEDS: Sodium Polystyrene Sulfonate 15 GM/60 ML UDC 30 GM PO (11:57)
[2019-04-21] MEDS: Ondansetron 4 MG/2 ML Vial IV (13:56)
--- NOTE | 2019-04-21 14:28 | PN_ITS ---
Patient Problems: Active and Suspected Problems (Last Reviewed 04/03/19 @ 15:[address] Mitch Hernandez, DO) Acute kidney injury (Acute) Hyperkalemia (Acute) Constipation (Acute) Reason for Visit: Intractable nausea vomiting Subjective: No further nausea or vomiting. Patient has uncontrolled blood pressure and tachycardia this morning. She was started on amnio drip and is improving with both rate and blood pressure. She had been refusing Kayexalate however we were able to get her to agree to take it this morning as her potassium has increased. She has no shortness of breath or dizziness, but is severely fatigued. She has increased swelling of her bilateral lower extremities in the ankles and feet. Vitals/I&O's: Vital Signs Temp Pulse Resp BP Pulse Ox 97.9 F 114 H 20 H 80/54 L 98 04/21/19 10:36 04/21/19 12:00 04/21/19 12:00 04/21/19 12:00 04/21/19 12:00 Oxygen Flow Rate (L/min) 2 Oxygen Delivery Method Room Air Weight: 225 lb 12.794 oz Body Mass Index (BMI) 39.9 Intake and Output for Last 24 Hours 04/19/19 04/20/19 04/21/19 23:59 23:59 23:59 Intake Total 635.05 / 635.05 3915.00 / 4165.00 2501.87 / 2501.87 Balance 635.05 / 635.05 3915.00 / 4165.00 2501.87 / 2501.87 General: Alert, Oriented x3, Cooperative HEENT: Atraumatic, PERRLA, EOMI, Normocephalic Neck: Supple, No JVD, Negative Carotid Bruits Lungs: Clear to auscultation, Normal air movement Cardiovascular: No murmurs, Irregular Rate, Tachycardic Abdomen: Bowel Sounds Present, Soft, Non Tender, Obese Extremities: Capillary Refill Less than 3 Seconds, Edema Skin: No rashes, No breakdown Musculoskeletal: No Tenderness to Palpation of Joints or Extremities Neurological: Cranial nerves II-XII grossly intact Psych/Mental Status: Normal Affect, Appropriate Laboratory Results 04/21/19 08:05: WBC 6.4, RBC 3.65 L, Hgb 10.7 L, Hct 33.5 L, MCV 91.8, MCH 29.3, MCHC 31.9 L, RDW Std Deviation 52.7 H, RDW Coeff of Patel 15.8 H, Plt Count 153, MPV 10.6, Immature Gran % (Auto) 0.800, Neut % (Auto) 75.4 H, Lymph % (Auto) 14.5 L, Carter % (Auto) 8.2, Eos % (Auto) 0.8, Baso % (Auto) 0.3, Absolute Neuts (auto) 4.8, Absolute Lymphs (auto) 0.92, Nucleated RBC % 0 04/21/19 08:05: Sodium 141, Potassium 6.3 H*, Chloride 114 H, Carbon Dioxide 19.0 L, Anion Gap 8, BUN 36 H, Creatinine 1.46 H, Estim Creat Clear Calc 27.54, Est GFR (MDRD) Af Amer 45 L, Est GFR (MDRD) Non-Af 37 L, BUN/Creatinine Ratio 24.7 H, Glucose 79, Calcium 8.5 Current Medications Allopurinol (Zyloprim) 100 mg PO DAILY [facility] Last Admin: 04/21/19 08:38 Dose: 100 mg Documented by: Apixaban (Eliquis) 5 mg PO BID [facility] Last Admin: 04/21/19 08:37 Dose: 5 mg Documented by: Aspirin (Ecotrin) 81 mg PO DAILY@0800 [facility] Last Admin: 04/21/19 08:37 Dose: 81 mg Documented by: Bisacodyl (Dulcolax) 10 mg RECTAL DAILY PRN PRN Reason: Constipation Clobetasol Propionate (Temovate Cream (Bkc)) 1 applic TOPICAL DAILY PRN PRN PRN Reason: Skin Diltiazem HCl (Cardizem Cd) 180 mg PO BID [facility] Last Admin: 04/21/19 10:47 Dose: 180 mg Documented by: Sodium Chloride () 1,000 mls @ 125 mls/hr IV .Q8H [facility] Last Admin: 04/21/19 13:14 Dose: 125 mls/hr Documented by: Sodium Chloride () 250 mls @ 15 mls/hr IV .[id number] PRN PRN Reason: Saline Flush Amiodarone HCl 360 mg/ (Dextrose) 200 mls @ 33.333 mls/hr CONT INF .Q6H [facility] Stop: 04/21/19 16:09 Last Infusion: 04/21/19 12:00 Dose: 1 mg/min, 33.3 mls/hr Documented by: Amiodarone HCl 360 mg/ (Dextrose) 200 mls @ 16.667 mls/hr CONT INF .Q12H [facility] Stop: 04/22/19 10:09 Magnesium Hydroxide (Milk Of Magnesia) 30 ml PO DAILY [facility] Last Admin: 04/21/19 08:38 Dose: 30 ml Documented by: Ondansetron HCl (Zofran) 4 mg IV Q6H PRN PRN PRN Reason: NAUSEA Last Admin: 04/21/19 13:56 Dose: 4 mg Documented by: Oxycodone HCl (Oxyir) 5 mg PO Q6H PRN PRN PRN Reason: Pain Score 6-10/10 Last Admin: 04/20/19 18:21 Dose: 5 mg Documented by: Pantoprazole Sodium (Protonix) 20 mg PO DAILY [facility] Last Admin: 04/21/19 08:38 Dose: 20 mg Documented by: Polyethylene Glycol (Miralax) 17 gm PO DAILY PRN PRN Reason: Constipation Senna/Docusate Sodium (Senokot-S, Alla-Colace) 1 tablet PO BID [facility] Last Admin: 04/21/19 08:38 Dose: 1 tablet Documented by: Sodium Chloride () 10 - 40 ml IV UD PRN PRN Reason: SALINE FLUSH Last Admin: 04/21/19 05:09 Dose: 10 ml Documented by: STROKE Vital Signs/Narrative: Vital Signs Temp Pulse Resp BP Pulse Ox 04/21/19 12:00 114 H 20 H 80/54 L 98 04/21/19 11:30 99 22 H 84/62 L 97 04/21/19 11:15 94 23 H 87/60 L 97 04/21/19 11:05 100 16 96/66 97 04/21/19 10:47 111 H 16 96/57 L 98 04/21/19 10:36 97.9 F 105 H 18 96/58 L 99 Medical Necessity - Tobacco Use Smoking Status: Never smoker Tobacco Use: Non-smoker Assessment/Plan All Active Problems (Last Reviewed 04/03/19 @ 15:[address] Mitch Hernandez, DO) Urinary tract infection (Acute) Sepsis (Acute) Sinus tachycardia by electrocardiogram (Acute) Acute kidney injury (Acute) Hyperkalemia (Acute) Constipation (Acute) Lichen sclerosus (Acute) Dyspnea (Acute) Orthopnea (Acute) Acute bronchitis (Resolved) Chills (Resolved) Episodic confusion (Resolved) Fall at home (Resolved) Leukocytosis (Resolved) Malaise (Resolved) Screening for intestinal cancer (Resolved) Sepsis (Resolved) Urinary tract infection (Resolved) 1. Intractable nausea and vomiting, secondary to severe constipation, dehydration -resolved. Patient needs daily bowel regimen. 2. Acute kidney injury on CKDIII secondary to nausea vomiting and dehydration with decreased p.o. intake-with increased lower extremity edema will discontinue IV fluids. Bigg wraps caused her too much pain, she will try JOSE hoses. Potassium is increased today, she agreed to take Kayexalate today. 3. Atrial fibrillation with RVR-cardiology following. Started on amiodarone drip. Continue Eliquis. 4. 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 5. HTN - borderline low 6. Hx recurrent pancreatitis - lipase negative. 7. Chronic pain 2/2 RA - oxycodone likely contributing to constipation as above. Follows pain management. DVT ppx: magaly MORALES planning: SNF, pt cannot take care of herself at home regardless of [facility]. This patient was seen by Suresh Salgado PA-C under the supervision of Doctor Alvarez
[2019-04-21] MEDS: Amiodarone 360 MG in Dextrose 5% Viaflo Bag 192.8 ML 16.7 MG CONT INF (17:32)
[2019-04-21 19:15] LABS: Anion Gap 4 (5-15); BUN 31 mg/dL (7-18); BUN/Creat Ratio 22.1 RATIO (10-20); Calcium,Total 8.5 mg/dL (8.5-10.1); Chloride 116 mmol/L (98-107); EST Glomerular Filtration Rate 39 mL/min (>60); Est Glom Filt Rate - Afr Amer 47 mL/min (>60); Estimated Creatinine Clearance 28.72 ml/min; Glucose 142 mg/dL (74-106); Potassium 4.6 mmol/L (3.5-5.1); Sodium Level 143 mmol/L (136-145)
[2019-04-21] MEDS: oxyCODONE 5 MG Tablet PO (20:06)
--- NOTE | 2019-04-21 23:44 | NURSING ---
23:00 VS not doucumented on APR as BP cuff did not read at 23:00. BP taken and documented at 23:31.
[2019-04-22] VITALS (31 sets, daily range): BP systolic 85–131; BP diastolic 54–97; PULSE 106–159; RESP 15–26; TEMP 36.7–37; O2SAT 22–100
[2019-04-22] MEDS: Amiodarone 360 MG in Dextrose 5% Viaflo Bag 192.8 ML 16.7 MG CONT INF ×2 (06:18→14:22)
[2019-04-22 06:42] LABS: Anion Gap 5 (5-15); BUN 24 mg/dL (7-18); BUN/Creat Ratio 20.3 RATIO (10-20); Calcium,Total 8.5 mg/dL (8.5-10.1); Chloride 113 mmol/L (98-107); Creatinine, Serum 1.18 mg/dL (0.55-1.02); EST Glomerular Filtration Rate 47 mL/min (>60); Est Glom Filt Rate - Afr Amer 57 mL/min (>60); Estimated Creatinine Clearance 34.08 ml/min; Glucose 99 mg/dL (74-106); Potassium 4.3 mmol/L (3.5-5.1); Sodium Level 141 mmol/L (136-145)
[2019-04-22 07:19] LABS: Urine Chloride 118 mmol/L (Not Establ.); Urine Sodium 111 mmol/L (Not Establ.)
--- NOTE | 2019-04-22 08:25 | PCM.CONS.R ---
Consultation - Renal 04/22/19 PCP/ Referring MD: Requesting physician: [] Primary care physician: Miles Reid MD Reason for Consultation:: Talia, hyperkalemia - History of Present Illness History of Present Illness: The patient is a 73 year old obese F admitted on April 19 for nausea, intractable abdominal cramps and fatigue. She denies any diarrhea. She was found to be in A. fib with RVR. She has a history of chronic atrial fibrillation status post ablation about 10 years ago. She presented to the hospital early March for A. fib with RVR. She was not aware that she was back in atrial fibrillation until recently. She denied any palpitations but did feel lightheaded and weak. Denied any chest pain or shortness of breath. She has been on Eliquis in the past. Denied any history of diabetes, blood clots or stroke. She has a history of hypertension, rheumatoid arthritis with fibromyalgia and chronic pain. She denies any NSAID use. She is on Percocet for pain relief. She has reflux. She has chronic nausea. I was asked to see her on consultation for acute renal failure and persistent hyperkalemia despite improved renal function. She states that she was on diuretics and potassium for chronic edema. She was on lisinopril at home and has been eating oranges. Her lisinopril was discontinued. Creatinine was 2.8 on admission improved to 1.18 with hydration. Her potassium was elevated at 6.3 improved to 4.3 today. She received Kayexalate for hyperkalemia. - Allergies Allergies: Allergies Penicillins Allergy (Verified 03/08/19 10:56) Hives atorvastatin [From Lipitor] Adverse Reaction (Severe, Verified 03/08/19 10:56) Elevated LFT - Current Medications Current Medications: Current Medications Allopurinol (Zyloprim) 100 mg PO DAILY [facility] Last Admin: 04/21/19 08:38 Dose: 100 mg Documented by: Apixaban (Eliquis) 5 mg PO BID [facility] Last Admin: 04/21/19 21:20 Dose: 5 mg Documented by: Aspirin (Ecotrin) 81 mg PO DAILY@0800 [facility] Last Admin: 04/21/19 08:37 Dose: 81 mg Documented by: Bisacodyl (Dulcolax) 10 mg RECTAL DAILY PRN PRN Reason: Constipation Clobetasol Propionate (Temovate Cream (Bkc)) 1 applic TOPICAL DAILY PRN PRN PRN Reason: Skin Diltiazem HCl (Cardizem Cd) 180 mg PO BID [facility] Last Admin: 04/21/19 21:20 Dose: 180 mg Documented by: Sodium Chloride () 250 mls @ 15 mls/hr IV .[id number] PRN PRN Reason: Saline Flush Amiodarone HCl 360 mg/ (Dextrose) 200 mls @ 16.667 mls/hr CONT INF .Q12H [facility] Stop: 04/22/19 10:09 Last Infusion: 04/22/19 07:19 Dose: 0.5 mg/min, 16.7 mls/hr Documented by: Magnesium Hydroxide (Milk Of Magnesia) 30 ml PO DAILY [facility] Last Admin: 04/21/19 08:38 Dose: 30 ml Documented by: Ondansetron HCl (Zofran) 4 mg IV Q6H PRN PRN PRN Reason: NAUSEA Last Admin: 04/21/19 13:56 Dose: 4 mg Documented by: Oxycodone HCl (Oxyir) 5 mg PO Q6H PRN PRN PRN Reason: Pain Score 6-10/10 Last Admin: 04/21/19 20:06 Dose: 5 mg Documented by: Pantoprazole Sodium (Protonix) 20 mg PO DAILY [facility] Last Admin: 04/21/19 08:38 Dose: 20 mg Documented by: Polyethylene Glycol (Miralax) 17 gm PO DAILY PRN PRN Reason: Constipation Senna/Docusate Sodium (Senokot-S, Alla-Colace) 1 tablet PO BID [facility] Last Admin: 04/21/19 21:20 Dose: 1 tablet Documented by: Sodium Chloride () 10 - 40 ml IV UD PRN PRN Reason: SALINE FLUSH Last Admin: 04/21/19 05:09 Dose: 10 ml Documented by: - Past Medical History Past Medical History (Chronic Problems): Chronic Problems (Last Reviewed 04/03/19 @ 15:[address] Mitch Hernandez, ) Old myocardial infarction (Chronic) Paroxysmal atrial fibrillation (Chronic) Nonrheumatic mitral (valve) insufficiency (Chronic) Nonrheumatic mitral (valve) prolapse (Chronic) Recurrent pancreatitis (Chronic) Hyperlipidemia (Chronic) Familial combined hyperlipidemia (Chronic) Morbid obesity with BMI of 40.0-44.9, adult (Chronic) Benign hypertension (Chronic) - Past Surgical History Surgical History: appendectomy, cataract, cholecystectomy, total knee arthroplasty - left, - - Foot surgery, carpal tunnel surgery - Social History Smoking Status: Never smoker Alcohol: None Drugs: None - Family History Maternal Family History: Family History (Last Reviewed 04/19/19 @ 18:23 by CARIN Llamas) Sister Hypertension Other Arthritis Cancer Diabetes History Items: Renal Disease - age 70 Paternal Family History: Family History (Last Reviewed 04/19/19 @ 18:23 by CARIN Llamas) Sister Hypertension Other Arthritis Cancer Diabetes History Items: - - age 45 cirrhosis Review of Systems Constitutional: Reports: Anorexia, Weakness, Fatigue. Denies: Chills, Fever Cardiovascular: Reports: Edema, Light Headedness. Denies: Chest Pain Respiratory: Denies: Cough, Shortness of Breath Gastrointestinal: Reports: Abdominal Pain, Constipation, Nausea. Denies: Diarrhea, Vomiting Genitourinary: Denies: Dysuria Skin: Denies: Rash Neurological: Denies: Balance problems Psychiatric: Denies: Anxiety, Depression Hematologic/ Lymphatic: Denies: Anemia, Hx of blood clot Patient Problems: Active and Suspected Problems (Last Reviewed 04/03/19 @ 15:[address] Mitch Hernandez, DO) Acute kidney injury (Acute) Hyperkalemia (Acute) Constipation (Acute) - Physical Exam Vitals/I&O's: Vital Signs Temp Pulse Resp BP Pulse Ox 98.2 F 124 H 15 105/54 L 100 04/22/19 03:00 04/22/19 07:19 04/22/19 07:19 04/22/19 07:19 04/22/19 07:19 Oxygen Flow Rate (L/min) 2 Oxygen Delivery Method Room Air Weight: 102.421 kg Body Mass Index (BMI) 39.9 Intake and Output for Last 24 Hours 04/20/19 04/21/19 04/22/19 23:59 23:59 23:59 Intake Total 3915.00 / 4165.00 3548.34 / 3556.41 117.06 / 117.06 Output Total 0 / 0 Balance 3915.00 / 4165.00 3548.34 / 3556.41 117.06 / 117.06 General: Alert, Oriented x3, Cooperative, No apparent distress HEENT: PERRLA, EOMI Neck: Supple Lungs: Clear to auscultation Cardiovascular: Irregular Rate - Atrial fibrillation Abdomen: Bowel Sounds Present, Soft, Non Tender, Non-Distended, Obese Extremities: No edema Neurological: Cranial nerves II-XII grossly intact Psych/Mental Status: Normal Affect, Appropriate, Alert and oriented to time, place, person, mood and affect Laboratory Results 04/21/19 08:05: Sodium 141, Potassium 6.3 H*, Chloride 114 H, Carbon Dioxide 19.0 L, Anion Gap 8, BUN 36 H, Creatinine 1.46 H, Estim Creat Clear Calc 27.54, Est GFR (MDRD) Af Amer 45 L, Est GFR (MDRD) Non-Af 37 L, BUN/Creatinine Ratio 24.7 H, Glucose 79, Calcium 8.5 04/21/19 18:57: Sodium 143, Potassium 4.6, Chloride 116 H, Carbon Dioxide 23.0, Anion Gap 4 L, BUN 31 H, Creatinine 1.40 H, Estim Creat Clear Calc 28.72, Est GFR (MDRD) Af Amer 47 L, Est GFR (MDRD) Non-Af 39 L, BUN/Creatinine Ratio 22.1 H, Glucose 142 H, Calcium 8.5 04/22/19 05:54: Sodium 141, Potassium 4.3, Chloride 113 H, Carbon Dioxide 23.0, Anion Gap 5, BUN 24 H, Creatinine 1.18 H, Estim Creat Clear Calc 34.08, Est GFR (MDRD) Af Amer 57 L, Est GFR (MDRD) Non-Af 47 L, BUN/Creatinine Ratio 20.3 H, Glucose 99, Calcium 8.5 04/22/19 : Ur Random Sodium 111, Urine Potassium 18.0, Urine Chloride 118 Current Medications Allopurinol (Zyloprim) 100 mg PO DAILY [facility] Last Admin: 04/21/19 08:38 Dose: 100 mg Documented by: Apixaban (Eliquis) 5 mg PO BID [facility] Last Admin: 04/21/19 21:20 Dose: 5 mg Documented by: Aspirin (Ecotrin) 81 mg PO DAILY@0800 [facility] Last Admin: 04/21/19 08:37 Dose: 81 mg Documented by: Bisacodyl (Dulcolax) 10 mg RECTAL DAILY PRN PRN Reason: Constipation Clobetasol Propionate (Temovate Cream (Bkc)) 1 applic TOPICAL DAILY PRN PRN PRN Reason: Skin Diltiazem HCl (Cardizem Cd) 180 mg PO BID [facility] Last Admin: 04/21/19 21:20 Dose: 180 mg Documented by: Sodium Chloride () 250 mls @ 15 mls/hr IV .[id number] PRN PRN Reason: Saline Flush Amiodarone HCl 360 mg/ (Dextrose) 200 mls @ 16.667 mls/hr CONT INF .Q12H [facility] Stop: 04/22/19 10:09 Last Infusion: 04/22/19 07:19 Dose: 0.5 mg/min, 16.7 mls/hr Documented by: Magnesium Hydroxide (Milk Of Magnesia) 30 ml PO DAILY [facility] Last Admin: 04/21/19 08:38 Dose: 30 ml Documented by: Ondansetron HCl (Zofran) 4 mg IV Q6H PRN PRN PRN Reason: NAUSEA Last Admin: 04/21/19 13:56 Dose: 4 mg Documented by: Oxycodone HCl (Oxyir) 5 mg PO Q6H PRN PRN PRN Reason: Pain Score 6-10/10 Last Admin: 04/21/19 20:06 Dose: 5 mg Documented by: Pantoprazole Sodium (Protonix) 20 mg PO DAILY [facility] Last Admin: 04/21/19 08:38 Dose: 20 mg Documented by: Polyethylene Glycol (Miralax) 17 gm PO DAILY PRN PRN Reason: Constipation Senna/Docusate Sodium (Senokot-S, Alla-Colace) 1 tablet PO BID [facility] Last Admin: 04/21/19 21:20 Dose: 1 tablet Documented by: Sodium Chloride () 10 - 40 ml IV UD PRN PRN Reason: SALINE FLUSH Last Admin: 04/21/19 05:09 Dose: 10 ml Documented by: Assessment/Plan All Active Problems (Last Reviewed 04/03/19 @ 15:[address] Mitch Hernandez, ) Urinary tract infection (Acute) Sepsis (Acute) Sinus tachycardia by electrocardiogram (Acute) Acute kidney injury (Acute) Hyperkalemia (Acute) Constipation (Acute) Lichen sclerosus (Acute) Dyspnea (Acute) Orthopnea (Acute) Acute bronchitis (Resolved) Chills (Resolved) Episodic confusion (Resolved) Fall at home (Resolved) Leukocytosis (Resolved) Malaise (Resolved) Screening for intestinal cancer (Resolved) Sepsis (Resolved) Urinary tract infection (Resolved) 1. Acute kidney injury likely due to prerenal event. Patient was on diuretic therapy with A. fib with RVR. Creatinine improved from 2.86-1.18. Blood pressure has been stable therefore doubt adrenal insufficiency as the cause. Suggest urine anion gap to evaluate for RTA. Denies history of diabetes however she has a history of rheumatoid arthritis. 2. Acute hyperkalemia due to potassium supplements, ACEI, renal failure and dietary indiscretion. Advised low potassium diet. Avoid NSAIDs. 3. Atrial fibrillation with RVR. Cardiology following. Continue anticoagulation, Cardizem, amiodarone, and beta-lenora therapy. Eliquis was put on hold recently for epidural injections for chronic back pain. No history of stroke. 4. Morbid obesity 5. Chronic lower extremity edema currently off diuretic therapy. Advised low-sodium diet, weight loss. 6. Intractable nausea with a history of reflux. Consider PPI.
[2019-04-22] MEDS: Senna/Docusate Sodium 1 Tablet PO ×2 (08:54→21:17)
[2019-04-22] MEDS: Allopurinol 100 MG Tablet PO (08:54)
[2019-04-22] MEDS: APIXABAN 5 MG TABLET PO ×2 (08:56→21:17)
[2019-04-22] MEDS: Pantoprazole Sodium 20 MG Tablet PO (08:56)
[2019-04-22] MEDS: Aspirin E.C. 81 MG Tablet PO (09:05)
[2019-04-22] MEDS: Magnesium Hydroxide 30 ML UDC PO (09:06)
[2019-04-22] MEDS: dilTIAZem CD 180 MG Capsule PO ×2 (09:36→21:17)
--- NOTE | 2019-04-22 10:20 | PN.CARD_ITS ---
<Reilly Nair H - Last Filed: 04/22/19 10:20> Subjectve: Patient seen and evaluated. Generally, she states feeling well. She denies any lightness, dizziness, or presyncope. She does acknowledge palpitations. She denies any chest pain. She acknowledges shortness of breath with activity. She recently ambulated to restroom and chair and heart rate is noted to be consistently elevated. Objective: Vital Signs Temp Pulse Resp BP Pulse Ox 98.2 F 124 H 21 H 108/76 96 04/22/19 03:00 04/22/19 08:00 04/22/19 08:00 04/22/19 08:00 04/22/19 08:00 Oxygen Flow Rate (L/min) 2 Oxygen Delivery Method Room Air Weight: 225 lb 12.794 oz Body Mass Index (BMI) 39.9 Intake and Output for Last 24 Hours 04/20/19 04/21/19 04/22/19 23:59 23:59 23:59 Intake Total 3915.00 / 4165.00 3548.34 / 3556.41 128.47 / 128.47 Output Total 0 / 0 Balance 3915.00 / 4165.00 3548.34 / 3556.41 128.47 / 128.47 General: Healthy Appearing, Awake, Alert, Oriented x 3, Cooperative HEENT: Atraumatic Oral: Moist Mucosa Neck: No JVD Lungs: Clear to auscultation Cardiovascular: Irregular Rhythm - tachycardia, Normal S1, Normal S2, No Murmurs, No Rubs, No Gallops Vascular: No Carotid Bruits Abdomen: Bowel Sounds Present Extremities: No Cyanosis, No Clubbing, No edema, Normal Capillary Refill Neurological: No Focal Motor or Sensory Deficit Psych/Mental Status: Appropriate 04/21/19 08:05: Sodium 141, Potassium 6.3 H*, Chloride 114 H, Carbon Dioxide 19.0 L, Anion Gap 8, BUN 36 H, Creatinine 1.46 H, Est GFR (MDRD) Af Amer 45 L, Est GFR (MDRD) Non-Af 37 L, BUN/Creatinine Ratio 24.7 H, Glucose 79, Calcium 8.5 04/21/19 18:57: Sodium 143, Potassium 4.6, Chloride 116 H, Carbon Dioxide 23.0, Anion Gap 4 L, BUN 31 H, Creatinine 1.40 H, Est GFR (MDRD) Af Amer 47 L, Est GFR (MDRD) Non-Af 39 L, BUN/Creatinine Ratio 22.1 H, Glucose 142 H, Calcium 8.5 04/22/19 05:54: Sodium 141, Potassium 4.3, Chloride 113 H, Carbon Dioxide 23.0, Anion Gap 5, BUN 24 H, Creatinine 1.18 H, Est GFR (MDRD) Af Amer 57 L, Est GFR (MDRD) Non-Af 47 L, BUN/Creatinine Ratio 20.3 H, Glucose 99, Calcium 8.5 Rhythm: EKG: ECHO: 11/26/2018 Interpretation Summary The study was technically difficult. Contrast injection was performed. Left ventricular systolic function is normal. The estimated ejection fraction is 70 %. The left atrium is severely enlarged. There is moderate mitral annular calcification. Extension of the mitral annular calcification onto the posterior mitral valve leaflet peer Moderate focal mitral valve calcification of the anterior leaflet. Mild mitral valve prolapse. Moderate (2+) mitral valve insufficiency. Mild tricuspid valve insufficiency. Trivial aortic valve insufficiency. Mild (1+) pulmonic valve insufficiency. Calcified aortic root. Right ventricular systolic pressure estimated to be 42 mmHg. Unable to assess diastolic dysfunction. Stress Test: Cardiac Cath: PCI: CT Surgery: Holter monitor: EPS: PPM: CXR: Chest CT Scan: Medical Necessity - Tobacco Use Tobacco Use: Non-smoker Assessment/Plan 1. Atrial fibrillation The patient remains in atrial fibrillation. At the moment she will need to continue rate control therapy and anticoagulant therapy. Her heart rate remains elevated despite oral diltiazem and IV amiodarone therapy . She acknowledges that she resumed Eliquis the evening of March 30. This was confirmed with Dr. Resendiz's office. Thus, she is just over 3 weeks from resuming anticoagulation. However, this is complicated by episodes of vomiting. She cannot confirm episodes of vomiting anticoagulation medication. In the interim, she will continue anticoagulation and rate limiting medications. Hopefully, she will convert to sinus rhythm with such measures. However, if she does not convert, she will undergo cardioversion plus or minus transesophageal echocardiogram. Her echocardiogram in November 2018 revealed ejection fraction of 70%, no wall motion abnormalities, and severely enlarged left atrium. Depending upon her response to such a procedure she may need to be considered as to whether or not, if she returns to atrial fibrillation, she would need to be considered as to whether or not she is a candidate for any form of antiarrhythmic therapy versus repeat EP consultation for consideration for repeat EPS/RFA. 2. Atrial valve prolapse/insufficiency She underwent transthoracic echocardiogram as previously noted. At the present time she will need to be followed by history, exam, and echocardiogram as deemed appropriate. 3. Hyperlipidemia She should continue medical management as deemed appropriate. 4. Hypertension Her blood pressure need to be followed. Her medications can be adjusted as deemed appropriate. 5. Constipation She has been undergoing evaluation and care for her concerns of constipation. If this is secondary to her pain management/narcotic medication than they may need to be discontinued and she may need to find alternative therapies for her chronic discomfort. 6. Renal insufficiency Her BUN/creatinine are being followed. They are gradually decreasing. 7. Electrolyte disturbance/hyperkalemia Her renal function and potassium level are improved after intervention this morning. We will await input from nephrology. 8. Obesity Unfortunately she remains obese. This is not helping with respect to her cardiovascular and noncardiac condition. Her case was reviewed with Dr. Macdonald, who will also personally evaluate patient. Please see his dictation for further details and recommendations. <Miles Macdonald - Last Filed: 04/22/19 18:54> Objective: Vital Signs Temp Pulse Resp BP Pulse Ox 98.0 F 139 H 24 H 94/75 96 04/22/19 15:00 04/22/19 18:00 04/22/19 18:00 04/22/19 18:00 04/22/19 18:00 Oxygen Flow Rate (L/min) 2 Oxygen Delivery Method Room Air Weight: 225 lb 12.794 oz Body Mass Index (BMI) 39.9 Intake and Output for Last 24 Hours 04/20/19 04/21/19 04/22/19 23:59 23:59 23:59 Intake Total 3915.00 / 4165.00 3548.34 / 3556.41 294.94 / 294.94 Output Total 0 / 0 Balance 3915.00 / 4165.00 3548.34 / 3556.41 294.94 / 294.94 04/21/19 18:57: Sodium 143, Potassium 4.6, Chloride 116 H, Carbon Dioxide 23.0, Anion Gap 4 L, BUN 31 H, Creatinine 1.40 H, Est GFR (MDRD) Af Amer 47 L, Est GFR (MDRD) Non-Af 39 L, BUN/Creatinine Ratio 22.1 H, Glucose 142 H, Calcium 8.5 04/22/19 05:54: Sodium 141, Potassium 4.3, Chloride 113 H, Carbon Dioxide 23.0, Anion Gap 5, BUN 24 H, Creatinine 1.18 H, Est GFR (MDRD) Af Amer 57 L, Est GFR (MDRD) Non-Af 47 L, BUN/Creatinine Ratio 20.3 H, Glucose 99, Calcium 8.5 Rhythm: EKG: ECHO: Stress Test: Cardiac Cath: PCI: CT Surgery: Holter monitor: EPS: PPM: CXR: Chest CT Scan: Assessment/Plan Addendum: Date: 04-22-2019 The patient was independently evaluated/examined. At the present time the patient remains in atrial fibrillation/flutter. She is being treated with rate control therapy and antiarrhythmic therapy and anticoagulant therapy. She has been noted to have intermittent episodes of hypotension which have made her medications challenging to adjust. At the moment she denies any acute symptoms with respect to chest discomfort or worsening shortness of breath/dyspnea or the sensation of ongoing palpitations or rapid rates. On examination her lungs appear to be clear. Her cardiovascular exam demonstrates an irregular rhythm with a normal S1 and S2. Her cardiac rhythm remains compatible with atrial fibrillation/flutter. At the present time she will continue to be monitored. She will continue medical management. She will be scheduled for ARYAN and if no obvious findings with respect to intracardiac thrombus that would prohibit proceeding with DC cardioversion then would proceed with DC cardioversion and attempt to regain sinus rhythm. The above was discussed with the patient and she was agreeable to this approach. The patient's case was discussed and reviewed with Reilly Nair CNP.
--- NOTE | 2019-04-22 13:32 | PCM.PROGNOTE ---
Patient Problems: Active and Suspected Problems (Last Reviewed 04/03/19 @ 15:[address] Mitch Hernandez, DO) Acute kidney injury (Acute) Hyperkalemia (Acute) Constipation (Acute) Subjective: Patient seen and examined. Denies chest pain, shortness of breath. - Physical Exam Vitals/I&O's: Vital Signs Temp Pulse Resp BP Pulse Ox 98.3 F 135 H 23 H 112/90 H 100 04/22/19 09:00 04/22/19 12:00 04/22/19 12:00 04/22/19 12:00 04/22/19 12:00 Oxygen Flow Rate (L/min) 2 Oxygen Delivery Method Room Air Weight: 225 lb 12.794 oz Body Mass Index (BMI) 39.9 Intake and Output for Last 24 Hours 04/20/19 04/21/19 04/22/19 23:59 23:59 23:59 Intake Total 3915.00 / 4165.00 3548.34 / 3556.41 195.29 / 195.29 Output Total 0 / 0 Balance 3915.00 / 4165.00 3548.34 / 3556.41 195.29 / 195.29 General: Alert, Oriented x3, Cooperative HEENT: Atraumatic, PERRLA, EOMI, Normocephalic Neck: Supple, No JVD, Negative Carotid Bruits Lungs: Clear to auscultation, Normal air movement Cardiovascular: - - Atrial flutter, tachycardic Abdomen: Bowel Sounds Present, Soft, Non Tender, Non-Distended, Obese Extremities: No clubbing, No cyanosis, No edema, Capillary Refill Less than 3 Seconds Skin: No rashes, No breakdown Musculoskeletal: No Tenderness to Palpation of Joints or Extremities Neurological: Cranial nerves II-XII grossly intact, Neuro grossly intact Psych/Mental Status: Normal Affect, Appropriate Laboratory Results 04/21/19 18:57: Sodium 143, Potassium 4.6, Chloride 116 H, Carbon Dioxide 23.0, Anion Gap 4 L, BUN 31 H, Creatinine 1.40 H, Estim Creat Clear Calc 28.72, Est GFR (MDRD) Af Amer 47 L, Est GFR (MDRD) Non-Af 39 L, BUN/Creatinine Ratio 22.1 H, Glucose 142 H, Calcium 8.5 02/27/20 05:54: Sodium 141, Potassium 4.3, Chloride 113 H, Carbon Dioxide 23.0, Anion Gap 5, BUN 24 H, Creatinine 1.18 H, Estim Creat Clear Calc 34.08, Est GFR (MDRD) Af Amer 57 L, Est GFR (MDRD) Non-Af 47 L, BUN/Creatinine Ratio 20.3 H, Glucose 99, Calcium 8.5 04/22/19 : Ur Random Sodium 111, Urine Potassium 18.0, Urine Chloride 118 Current Medications Allopurinol (Zyloprim) 100 mg PO DAILY [facility] Last Admin: 04/22/19 08:54 Dose: 100 mg Documented by: Apixaban (Eliquis) 5 mg PO BID [facility] Last Admin: 04/22/19 08:56 Dose: 5 mg Documented by: Aspirin (Ecotrin) 81 mg PO DAILY@0800 [facility] Last Admin: 04/22/19 09:05 Dose: 81 mg Documented by: Bisacodyl (Dulcolax) 10 mg RECTAL DAILY PRN PRN Reason: Constipation Clobetasol Propionate (Temovate Cream (Bkc)) 1 applic TOPICAL DAILY PRN PRN PRN Reason: Skin Diltiazem HCl (Cardizem Cd) 180 mg PO BID [facility] Last Admin: 04/22/19 09:36 Dose: 180 mg Documented by: Sodium Chloride () 250 mls @ 15 mls/hr IV .[id number] PRN PRN Reason: Saline Flush Amiodarone HCl 360 mg/ (Dextrose) 200 mls @ 16.667 mls/hr CONT INF .Q12H [facility] Magnesium Hydroxide (Milk Of Magnesia) 30 ml PO DAILY [facility] Last Admin: 04/22/19 09:06 Dose: 30 ml Documented by: Ondansetron HCl (Zofran) 4 mg IV Q6H PRN PRN PRN Reason: NAUSEA Last Admin: 04/21/19 13:56 Dose: 4 mg Documented by: Oxycodone HCl (Oxyir) 5 mg PO Q6H PRN PRN PRN Reason: Pain Score 6-10/10 Last Admin: 04/21/19 20:06 Dose: 5 mg Documented by: Pantoprazole Sodium (Protonix) 20 mg PO DAILY [facility] Last Admin: 04/22/19 08:56 Dose: 20 mg Documented by: Polyethylene Glycol (Miralax) 17 gm PO DAILY PRN PRN Reason: Constipation Senna/Docusate Sodium (Senokot-S, Alla-Colace) 1 tablet PO BID [facility] Last Admin: 04/22/19 08:54 Dose: 1 tablet Documented by: Sodium Chloride () 10 - 40 ml IV UD PRN PRN Reason: SALINE FLUSH Last Admin: 04/21/19 05:09 Dose: 10 ml Documented by: Medical Necessity - Tobacco Use Tobacco Use: Non-smoker Assessment/Plan All Active Problems (Last Reviewed 04/03/19 @ 15:[address] Mitch Hernandez, DO) Urinary tract infection (Acute) Sepsis (Acute) Sinus tachycardia by electrocardiogram (Acute) Acute kidney injury (Acute) Hyperkalemia (Acute) Constipation (Acute) Lichen sclerosus (Acute) Dyspnea (Acute) Orthopnea (Acute) Acute bronchitis (Resolved) Chills (Resolved) Episodic confusion (Resolved) Fall at home (Resolved) Leukocytosis (Resolved) Malaise (Resolved) Screening for intestinal cancer (Resolved) Sepsis (Resolved) Urinary tract infection (Resolved) 1. Atrial fibrillation/atrial flutter with RVR-cardiology following. On amiodarone drip. Oral Cardizem. Continue Eliquis. Heart rate remains elevated. Management per cardiology. Echo November 2018 showed EF 70%, moderate mitral valve insufficiency, mild pulmonic valve insufficiency, RVSP 42 mmHg. 2. Acute kidney injury with hyperkalemia on chronic kidney disease stage III-CYRUS secondary to recent nausea, vomiting. Nephrology following. Significantly improved. Trend BMP. 3. Hypertension-Home metoprolol, lisinopril, Lasix regimen on hold due to hypotension. Now improved. 4. Hx recurrent pancreatitis 5. Chronic pain 2/2 rheumatoid arthritis- prn pain regimen. 6. Obesity- encouraged diet and lifestyle modifications. DVT prophylaxis-Eliquis Discharge planning: SNF when medically stable. This patient was seen by CRISTELA Flores under the supervision of Dr. Alvarez.
--- NOTE | 2019-04-22 15:02 | CASEMGMT ---
Patient has a Healthcare POA and Healthcare LW. She is aware they are not on file at [facility] and is aware to bring them in when able. Tabatha MIDDLETON MSW
[2019-04-22] MEDS: oxyCODONE 5 MG Tablet PO (15:44)
--- NOTE | 2019-04-22 18:54 | ECHOTEE_ITS ---
Reason For Study: A. fib, R/O thrombus Medication ARYAN probe 6VT-D (SN [id number]) passed without difficulty. No complications were noted. Cetacaine Topical [place] given X3 orally. Versed 2 mg given slow IVP. Fentanyl 100 mcg given slow IVP. Performed a rapid injection of agitated mix of 9 cc saline and 1cc air to assess for atrial septal defect. Left Ventricle Normal LV size. Left ventricular systolic function is normal. The estimated ejection fraction is 65 %. No regional wall motion abnormalities noted. Right Ventricle Normal RV size. The right ventricular wall motion is normal. Atria Positive color flow Doppler study for left to right interatrial shunt compatible with a patent foramen ovale. Bubble contrast study negative for right to left interatrial shunt. The left atrium is severely enlarged. There is no sponatenous contrast in the left atrium. No thrombus is detected in the left atrial appendage. Normal right atrium. There is no sponatenous contrast in the right atrium. No right/atrial appendage thrombus identified. Mitral Valve There is moderate to severe mitral annular calcification. Moderate diffuse mitral valve thickening. Moderate mitral valve prolapse. Moderate (2+) mitral valve insufficiency. Tricuspid Valve Normal tricuspid valve. Mild to moderate (1-2+) tricuspid valve insufficiency. Aortic Valve Trisinus/trileaflet aortic valve. Normal aortic valve. Trivial aortic valve insufficiency. Pulmonic Valve The pulmonic valve is not well visualized. Vessels Calcified aortic root. Mild atherosclerosis of the descending aorta. Pericardium No pericardial effusion. Doppler Measurements & Calculations TR max je: 297.7 cm/sec Interpretation Summary Left ventricular systolic function is normal. The estimated ejection fraction is 65 %. The left atrium is severely enlarged. There is no sponatenous contrast in the left atrium. No thrombus is detected in the left atrial appendage. There is moderate to severe mitral annular calcification. Moderate diffuse mitral valve thickening. Moderate mitral valve prolapse. Moderate (2+) mitral valve insufficiency. Mild to moderate (1-2+) tricuspid valve insufficiency. Trivial aortic valve insufficiency. Positive color flow Doppler study for left to right interatrial shunt compatible with a patent foramen ovale. Bubble contrast study negative for right to left interatrial shunt. Calcified aortic root. Mild atherosclerosis of the descending aorta. Ordering Physician: Miles Macdonald Referring Physician: Miles Reid Performed By: Tova Banegas [facility]
--- NOTE | 2019-04-22 18:54 | EKG12_ITS ---
Test Reason : ADMISSION Blood Pressure : / mmHG Vent. Rate : 147 BPM Atrial Rate : 156 BPM P-R Int : 168 ms QRS Dur : 080 ms QT Int : 256 ms P-R-T Axes : 000 -22 171 degrees QTc Int : 400 ms Atrial Fibrillation Nonspecific ST & T wave abnormality Abnormal ECG Confirmed by HAYLEY LOCKHART, PETER ([id number]), copy editor CORONA HOOKS ([id number]) on 04/28/2019 1:44:22 PM Referred By: DR. HARDY Confirmed By:PETER HARDY MD
[2019-04-23] VITALS (28 sets, daily range): BP systolic 79–129; BP diastolic 50–90; PULSE 12–128; RESP 15–21; TEMP 36.8–37; O2SAT 95–100
[2019-04-23] MEDS: Amiodarone 360 MG in Dextrose 5% Viaflo Bag 192.8 ML 16.7 MG CONT INF (02:51)
[2019-04-23] MEDS: Ondansetron 4 MG/2 ML Vial IV (04:51)
--- NOTE | 2019-04-23 05:55 | EKG12_ITS ---
Test Reason : DCCV Blood Pressure : / mmHG Vent. Rate : 084 BPM Atrial Rate : 084 BPM P-R Int : 152 ms QRS Dur : 080 ms QT Int : 404 ms P-R-T Axes : 045 -22 023 degrees QTc Int : 477 ms Sinus rhythm with Premature atrial complexes Nonspecific T wave abnormality Prolonged QT Abnormal ECG Confirmed by HAYLEY LOCKHART, PETER ([id number]), movie editor CORONA HOOKS ([id number]) on 04/28/2019 2:04:30 PM Referred By: HAYLEY Confirmed By:PETER HARDY MD
[2019-04-23 08:31] LABS: Anion Gap 4 (5-15); BUN 18 mg/dL (7-18); BUN/Creat Ratio 15.8 RATIO (10-20); Calcium,Total 8.5 mg/dL (8.5-10.1); Chloride 110 mmol/L (98-107); Creatinine, Serum 1.14 mg/dL (0.55-1.02); EST Glomerular Filtration Rate 49 mL/min (>60); Est Glom Filt Rate - Afr Amer 60 mL/min (>60); Estimated Creatinine Clearance 35.27 ml/min; Glucose 104 mg/dL (74-106); Potassium 4.4 mmol/L (3.5-5.1); Sodium Level 140 mmol/L (136-145)
--- NOTE | 2019-04-23 09:30 | PCM.PN.CARD ---
<Reilly Nair H - Last Filed: 04/23/19 11:07> Subjectve: Patient seen and evaluated. She states feeling well today. She does acknowledge ongoing palpitations. She denies any chest pain. She does acknowledge improved shortness of breath with activity. She states that her bowel movements are improving and are soft. Objective: Vital Signs Temp Pulse Resp BP Pulse Ox 98.6 F 116 H 20 H 110/72 99 04/23/19 05:00 04/23/19 09:00 04/23/19 09:00 04/23/19 09:00 04/23/19 09:00 Oxygen Flow Rate (L/min) 2 Oxygen Delivery Method Room Air Weight: 225 lb 12.794 oz Body Mass Index (BMI) 39.9 Intake and Output for Last 24 Hours 04/21/19 04/22/19 04/23/19 23:59 23:59 23:59 Intake Total 3548.34 / 3556.41 618.44 / 635.14 158.54 / 158.54 Output Total 0 / 0 Balance 3548.34 / 3556.41 618.44 / 635.14 158.54 / 158.54 General: Healthy Appearing, Awake, Alert, Oriented x 3, Cooperative HEENT: Atraumatic Oral: Moist Mucosa Neck: No JVD Lungs: Clear to auscultation Cardiovascular: Irregular Rhythm, Normal S1, Normal S2, No Murmurs, No Rubs, No Gallops Vascular: No Carotid Bruits Abdomen: Soft Extremities: No Cyanosis, No Clubbing, No edema, Normal Capillary Refill Musculoskeletal: No Erythema Skin: No Rashes Neurological: No Focal Motor or Sensory Deficit Psych/Mental Status: Appropriate, Normal Affect 04/23/19 07:25: Sodium 140, Potassium 4.4, Chloride 110 H, Carbon Dioxide 26.0, Anion Gap 4 L, BUN 18, Creatinine 1.14 H, Est GFR (MDRD) Af Amer 60, Est GFR (MDRD) Non-Af 49 L, BUN/Creatinine Ratio 15.8, Glucose 104, Calcium 8.5 Rhythm: EKG: ECHO: 11/26/2018 Interpretation Summary The study was technically difficult. Contrast injection was performed. Left ventricular systolic function is normal. The estimated ejection fraction is 70 %. The left atrium is severely enlarged. There is moderate mitral annular calcification. Extension of the mitral annular calcification onto the posterior mitral valve leaflet peer Moderate focal mitral valve calcification of the anterior leaflet. Mild mitral valve prolapse. Moderate (2+) mitral valve insufficiency. Mild tricuspid valve insufficiency. Trivial aortic valve insufficiency. Mild (1+) pulmonic valve insufficiency. Calcified aortic root. Right ventricular systolic pressure estimated to be 42 mmHg. Unable to assess diastolic dysfunction. Stress Test: Cardiac Cath: PCI: CT Surgery: Holter monitor: EPS: PPM: CXR: Chest CT Scan: Medical Necessity - Tobacco Use Tobacco Use: Non-smoker Assessment/Plan 1. Atrial fibrillation The patient remains in atrial fibrillation/flutter. At the moment she will need to continue rate control therapy and anticoagulant therapy. She will proceed with ARYAN cardioversion later this afternoon. Her IV amiodarone will be transitioned to p.o. amiodarone post cardioversion. She will continue with Cardizem for rate control. After conversion to sinus rhythm, her Cardizem may need to be adjusted based on heart rate and overall response. Her echocardiogram in November 2018 revealed ejection fraction of 70%, no wall motion abnormalities, and severely enlarged left atrium. Depending upon her response to such a procedure she may need to be considered as to whether or not, if she returns to atrial fibrillation, she would need to be considered as to whether or not she is a candidate for any form of antiarrhythmic therapy versus repeat EP consultation for consideration for repeat EPS/RFA. 2. Atrial valve prolapse/insufficiency She underwent transthoracic echocardiogram as previously noted. At the present time she will need to be followed by history, exam, and echocardiogram as deemed appropriate. 3. Hyperlipidemia She should continue medical management as deemed appropriate. 4. Hypertension Her blood pressure need to be followed. Her medications can be adjusted as deemed appropriate. 5. Constipation She has been undergoing evaluation and care for her concerns of constipation. If this is secondary to her pain management/narcotic medication than they may need to be discontinued and she may need to find alternative therapies for her chronic discomfort. She acknowledges improvements in her bowel movements since admission. 6. Renal insufficiency Her BUN/creatinine are being followed. They are gradually decreasing. 7. Electrolyte disturbance/hyperkalemia Her renal function and potassium level are improved. 8. Obesity Unfortunately she remains obese. This is not helping with respect to her cardiovascular and noncardiac condition. Her case was reviewed with Dr. Macdonald, who will also personally evaluate patient. Please see his dictation for further details and recommendations. Thank you for allowing us to participate in the patients plan of care, if you have any questions please do not hesitate to call. This note was generated using a voice recognition system and there may be incorrect words, spelling or punctuation that were not noted when reviewing the office note prior to saving. <Miles Macdonald - Last Filed: 04/23/19 17:13> Objective: Vital Signs Temp Pulse Resp BP Pulse Ox 98.3 F 88 21 H 106/60 99 04/23/19 11:00 04/23/19 16:00 04/23/19 16:00 04/23/19 16:00 04/23/19 16:00 Oxygen Flow Rate (L/min) 2 Oxygen Delivery Method Room Air Weight: 225 lb 12.794 oz Body Mass Index (BMI) 39.9 Intake and Output for Last 24 Hours 04/21/19 04/22/19 04/23/19 23:59 23:59 23:59 Intake Total 3548.34 / 3556.41 618.44 / 635.14 255.82 / 255.82 Output Total 0 / 0 Balance 3548.34 / 3556.41 618.44 / 635.14 255.82 / 255.82 04/23/19 07:25: Sodium 140, Potassium 4.4, Chloride 110 H, Carbon Dioxide 26.0, Anion Gap 4 L, BUN 18, Creatinine 1.14 H, Est GFR (MDRD) Af Amer 60, Est GFR (MDRD) Non-Af 49 L, BUN/Creatinine Ratio 15.8, Glucose 104, Calcium 8.5 Rhythm: EKG: ECHO: Stress Test: Cardiac Cath: PCI: CT Surgery: Holter monitor: EPS: PPM: CXR: Chest CT Scan: Assessment/Plan Addendum: Date: 04/23/2019 The patient was independently evaluated / examined. She has undergone additional evaluation with ARYAN and subsequent synchronized biphasic DC cardioversion. She did regain sinus rhythm. She has been without acute symptoms. Her lungs are clear. Her cardiovascular evaluation demonstrates a regular rhythm with a normal S1 / S2. Her cardiac rhythm is sinus rhythm. At the present time, she will continue to be monitored. Her medications are being adjusted. Her IV amiodarone is being transitioned to oral amiodarone therapy. Her other medications will be adjusted for rate control as tolerated. She will continue anticoagulant therapy. The patients case was discussed with the patient, Dr. Alvarez, and Reilly Nair CNP. This note was generated using a voice recognition system and there may be incorrect words, spelling or punctuation that were not noted when reviewing the office note prior to saving.
[2019-04-23] MEDS: APIXABAN 5 MG TABLET PO ×2 (09:34→22:00)
[2019-04-23] MEDS: dilTIAZem CD 180 MG Capsule PO ×2 (09:34→21:59)
[2019-04-23] MEDS: Aspirin E.C. 81 MG Tablet PO (09:36)
[2019-04-23] MEDS: 0.9% Normal Saline 1,000 ML 15 ML IV (11:54)
--- NOTE | 2019-04-23 13:18 | CASEMGMT ---
Patient will go to TCU on Friday. DEREK let Em know. Green sheet on chart. Plan: [facility] Friday. Tabatha MIDDLETON MSW
--- NOTE | 2019-04-23 14:09 | PCM.OP.PRO ---
Procedure Report Date of Procedure: 04/23/19 CONSCIOUS SEDATION REPORT DATE OF SERVICE: April 23, 2019 BRIEF HISTORY OF PRESENT ILLNESS: The patient is a 73-year-old female, currently admitted to the hospital, who underwent transesophageal echocardiogram earlier this morning and is now being referred to undergo a cardioversion. Her ARYAN revealed an ejection fraction of approximately 65%. The patient denies ever having undergone a prior cardioversion. She denies any previous anesthetic complications. She denies a history of COPD or asthma. She does report having been diagnosed with sleep apnea previously, but does not currently utilize any form of nocturnal Pap therapy. PHYSICAL EXAMINATION: VITAL SIGNS: Reviewed and were acceptable. GENERAL: The patient is an obese female, in no apparent distress, speaking in full sentences. HEENT: Normocephalic, atraumatic. Mucous membranes are moist and pink. Good mouth opening noted. Trachea is midline. Good neck mobility. CHEST: S1, S2 irregularly irregular. No murmurs, rubs or gallops were noted. LUNGS: Clear to auscultation bilaterally without appreciable wheezes, rales or rhonchi. ABDOMEN: Soft, nontender, nondistended. Positive bowel sounds. EXTREMITIES: There is no clubbing, cyanosis or edema. ASA Class: II DESCRIPTION OF PROCEDURE: After confirmation of informed consent, the patient's anesthesia plan was reviewed in detail. Propofol was chosen. Risks and benefits were reviewed and the patient agreed to proceed. At 1318, the patient was given 40 mg of propofol. The patient achieved an appropriate level of sedation and was given a 200 joule synchronized cardioversion by Dr. Macdonald at the bedside. This was successful in achieving normal sinus rhythm. The patient was monitored until 1328, at which time she reached her baseline mental status and function. The patient tolerated the procedure well. COMPLICATIONS: None ESTIMATED BLOOD LOSS: None RECOMMENDATIONS: Okay to recover in usual fashion. Code Visit [id number]: Other Procedure See Report - [id number]
--- NOTE | 2019-04-23 14:10 | CARDIOVERS ---
Cardioversion Cardioversion: Date: 04-23-2019 Procedure: Synchronized Biphasic DC Cardioversion Indications: Atrial fibrillation Consent: Per the Patient Anesthesia: per Dr. Obregon of pulmonology and critical care medicine with propofol 40 mg IV push total Procedure: Synchronized Biphasic DC Cardioversion: 200 J x1: Result: Sinus rhythm Complications: no apparent complications This note was generated with [employer] dictation software. It may contain incorrect words, spelling, and punctuation that were not noted in checking the note before signing.
--- NOTE | 2019-04-23 14:24 | PN_ITS ---
Patient Problems: Active and Suspected Problems (Last Reviewed 04/03/19 @ 15:[address] Mitch Hernandez, DO) Acute kidney injury (Acute) Hyperkalemia (Acute) Constipation (Acute) Subjective: Patient seen and examined. Underwent cardioversion this afternoon. Denies chest pain, shortness of breath. Remains in sinus rhythm. - Physical Exam Vitals/I&O's: Vital Signs Temp Pulse Resp BP Pulse Ox 98.3 F 117 H 21 H 97/68 99 04/23/19 11:00 04/23/19 12:00 04/23/19 12:00 04/23/19 12:00 04/23/19 12:00 Oxygen Flow Rate (L/min) 2 Oxygen Delivery Method Room Air Weight: 225 lb 12.794 oz Body Mass Index (BMI) 39.9 Intake and Output for Last 24 Hours 04/21/19 04/22/19 04/23/19 23:59 23:59 23:59 Intake Total 3548.34 / 3556.41 618.44 / 635.14 208.64 / 208.64 Output Total 0 / 0 Balance 3548.34 / 3556.41 618.44 / 635.14 208.64 / 208.64 General: Alert, Oriented x3, Cooperative HEENT: Atraumatic, PERRLA, EOMI, Normocephalic Neck: Supple, No JVD, Negative Carotid Bruits Lungs: Clear to auscultation, Normal air movement Cardiovascular: Regular rate, Regular Rhythm, Normal S1, Normal S2, No murmurs Abdomen: Bowel Sounds Present, Soft, Non Tender, Non-Distended, Obese Extremities: No clubbing, No cyanosis, No edema, Capillary Refill Less than 3 Seconds Skin: No rashes, No breakdown Musculoskeletal: No Tenderness to Palpation of Joints or Extremities Neurological: Cranial nerves II-XII grossly intact, Neuro grossly intact Psych/Mental Status: Normal Affect, Appropriate Laboratory Results 04/23/19 07:25: Sodium 140, Potassium 4.4, Chloride 110 H, Carbon Dioxide 26.0, Anion Gap 4 L, BUN 18, Creatinine 1.14 H, Estim Creat Clear Calc 35.27, Est GFR (MDRD) Af Amer 60, Est GFR (MDRD) Non-Af 49 L, BUN/Creatinine Ratio 15.8, Glucose 104, Calcium 8.5 Current Medications Allopurinol (Zyloprim) 100 mg PO DAILY [facility] Last Admin: 04/22/19 08:54 Dose: 100 mg Documented by: Amiodarone HCl (Cordarone) 200 mg PO TID [facility] Stop: 05/06/19 22:01 Amiodarone HCl (Cordarone) 200 mg PO BID [facility] Stop: 05/20/19 22:01 Amiodarone HCl (Cordarone) 200 mg PO DAILY [facility] Apixaban (Eliquis) 5 mg PO BID [facility] Last Admin: 04/23/19 09:34 Dose: 5 mg Documented by: Aspirin (Ecotrin) 81 mg PO DAILY@0800 [facility] Last Admin: 04/23/19 09:36 Dose: 81 mg Documented by: Bisacodyl (Dulcolax) 10 mg RECTAL DAILY PRN PRN Reason: Constipation Clobetasol Propionate (Temovate Cream (Bkc)) 1 applic TOPICAL DAILY PRN PRN PRN Reason: Skin Diltiazem HCl (Cardizem Cd) 180 mg PO BID [facility] Last Admin: 04/23/19 09:34 Dose: 180 mg Documented by: Sodium Chloride () 250 mls @ 15 mls/hr IV .[id number] PRN PRN Reason: Saline Flush Amiodarone HCl 360 mg/ (Dextrose) 200 mls @ 16.667 mls/hr CONT INF .Q12H [facility] Last Infusion: 04/23/19 12:00 Dose: 0.5 mg/min, 16.7 mls/hr Documented by: Sodium Chloride () 1,000 mls @ 0 mls/hr IV .Q0M [facility] Last Admin: 04/23/19 11:54 Dose: 15 mls/hr Documented by: Magnesium Hydroxide (Milk Of Magnesia) 30 ml PO DAILY [facility] Last Admin: 04/22/19 09:06 Dose: 30 ml Documented by: Ondansetron HCl (Zofran) 4 mg IV Q6H PRN PRN PRN Reason: NAUSEA Last Admin: 04/23/19 04:51 Dose: 4 mg Documented by: Oxycodone HCl (Oxyir) 5 mg PO Q6H PRN PRN PRN Reason: Pain Score 6-10/10 Last Admin: 04/22/19 15:44 Dose: 5 mg Documented by: Pantoprazole Sodium (Protonix) 20 mg PO DAILY [facility] Last Admin: 04/22/19 08:56 Dose: 20 mg Documented by: Polyethylene Glycol (Miralax) 17 gm PO DAILY PRN PRN Reason: Constipation Senna/Docusate Sodium (Senokot-S, Alla-Colace) 1 tablet PO BID [facility] Last Admin: 04/22/19 21:17 Dose: 1 tablet Documented by: Sodium Chloride () 10 - 40 ml IV UD PRN PRN Reason: SALINE FLUSH Last Admin: 04/21/19 05:09 Dose: 10 ml Documented by: Medical Necessity - Tobacco Use Tobacco Use: Non-smoker Assessment/Plan All Active Problems (Last Reviewed 04/03/19 @ 15:[address] Mitch Hernandez, DO) Urinary tract infection (Acute) Sepsis (Acute) Sinus tachycardia by electrocardiogram (Acute) Acute kidney injury (Acute) Hyperkalemia (Acute) Constipation (Acute) Lichen sclerosus (Acute) Dyspnea (Acute) Orthopnea (Acute) Acute bronchitis (Resolved) Chills (Resolved) Episodic confusion (Resolved) Fall at home (Resolved) Leukocytosis (Resolved) Malaise (Resolved) Screening for intestinal cancer (Resolved) Sepsis (Resolved) Urinary tract infection (Resolved) 1. Atrial fibrillation/atrial flutter with RVR-cardiology following. Underwent cardioversion 04/23/2019 with conversion to sinus rhythm. Continue oral amiodarone, Cardizem and Eliquis. Echo November 2018 showed EF 70%, moderate mitral valve insufficiency, mild pulmonic valve insufficiency, RVSP 42 mmHg. Plan to monitor overnight, if rhythm/rate remains stable, plan for discharge to TCU tomorrow. 2. Acute kidney injury with hyperkalemia on chronic kidney disease stage III- CYRUS secondary to recent nausea, vomiting. Nephrology following. Significantly improved. Trend BMP. 3. Hypertension-Home metoprolol, lisinopril, Lasix regimen on hold due to hypotension. Now improved. 4. Hx recurrent pancreatitis 5. Chronic pain 2/2 rheumatoid arthritis- prn pain regimen. 6. Obesity- encouraged diet and lifestyle modifications. DVT prophylaxis-Eliquis Discharge planning: Anticipate discharge to TCU tomorrow pending further cardiac monitoring. This patient was seen by CRISTELA Flores under the supervision of Dr. Alvarez.
[2019-04-23] MEDS: Allopurinol 100 MG Tablet PO (14:56)
[2019-04-23] MEDS: Pantoprazole Sodium 20 MG Tablet PO (14:56)
[2019-04-23] MEDS: Amiodarone 200 MG Tablet PO ×2 (14:56→21:58)
[2019-04-23] MEDS: Senna/Docusate Sodium 1 Tablet PO ×2 (14:57→21:59)
[2019-04-23] MEDS: oxyCODONE 5 MG Tablet PO (22:16)
[2019-04-24] VITALS (9 sets, daily range): BP systolic 114–140; BP diastolic 53–75; PULSE 71–147; RESP 15–17; TEMP 36.6–37.1; O2SAT 96–99
[2019-04-24] MEDS: 0.9% Saline Lock 10 ML Syringe IV ×2 (03:50→16:31)
[2019-04-24] MEDS: Ondansetron 4 MG/2 ML Vial IV ×2 (03:50→16:31)
[2019-04-24] MEDS: Amiodarone 200 MG Tablet PO ×2 (05:16→14:59)
--- NOTE | 2019-04-24 09:25 | PCM.EXTCARCO ---
- Diet 04/23/19 16:27 Diet: Cardiac/Low Cholesterol Dietary Modifications:: Low Potassium Restriction Is pt able to select menu?: Yes - Routine Orders/Code Status Enema Type: Fleetz Enema Frequency: Daily PRN Suppository Type: Dulcolax 10mg Suppository Frequency: Daily PRN O2 Liters per Minute: 2 O2 Frequency: PRN Keep PO Greater than or Equal to (%): 90 Routine Lab Work: - - CBC, BMP Q Week Code Status: Full Code - Suggestions for Active Care Change Position every (hours): 2 Times a day to sit in chair: 3 - Therapies Physical Therapy: Eval and Treat Occupational Therapy: Eval and Treat - Problem/Diagnosis (1) Acute kidney injury Status: Acute Current Visit: Yes (2) Hyperkalemia Status: Acute Current Visit: Yes (3) Paroxysmal atrial fibrillation Status: Acute Current Visit: Yes (4) Hyperlipidemia Status: Chronic Current Visit: No (5) Benign hypertension Status: Chronic Current Visit: No - Allergies/Procedures Done in Hospital Allergies/Adverse Reactions: Allergies Penicillins Allergy (Verified 03/08/19 10:56) Hives atorvastatin [From Lipitor] Adverse Reaction (Severe, Verified 03/08/19 10:56) Elevated LFT Procedures: Transesophageal Echo, - - Cardioversion - Type of Care/Length of Stay Estimated LOS: Convalescent Care Less Than 30 days Type of Care Needed: Skilled Rehab Potential: Fair Prognosis: Fair - Additional Orders/Day of Discharge H&P will serve as current which was dated: 04/19/19 Day of Discharge: 04/24/19 - Dietary and Speech Recommendations Dietitian Recommendations/Changes: Rec diet advanced as pt medically able to Cardiac:1800 Anshul Control, low potassium. Will continue Ensure Clear w/ b-fast. - Follow Up Care Primary Care Physician: Miles Reid MD [Primary Care Provider] - Please follow up with your Primary Care Physician in: 1 Week Please Follow Up With: Marika Goodwin PA When: As scheduled, 05/03/19
--- NOTE | 2019-04-24 09:29 | PCM.DC.SUM ---
Discharge Date and Diagnosis Date of Admission: 04/19/19 Date of Discharge: 04/24/19 - Primary Discharge Diagnosis Active and Suspected Problems (Last Reviewed 04/03/19 @ 15:[address] Mitch Hernandez DO) 1. Atrial fibrillation/atrial flutter with RVR status post cardioversion 2. Acute kidney injury with hyperkalemia on chronic kidney disease stage III 3. Hypertension 4. Hx recurrent pancreatitis 5. Chronic pain 2/2 rheumatoid arthritis 6. Obesity - Secondary Discharge Diagnosis Chronic Problems (Last Reviewed 04/03/19 @ 15:[address] Mitch Hernandez DO) Old myocardial infarction (Chronic) Nonrheumatic mitral (valve) insufficiency (Chronic) Nonrheumatic mitral (valve) prolapse (Chronic) Recurrent pancreatitis (Chronic) Hyperlipidemia (Chronic) Familial combined hyperlipidemia (Chronic) Morbid obesity with BMI of 40.0-44.9, adult (Chronic) Benign hypertension (Chronic) Hospital Course and Treatment Imaging Results: Diagnostic Data Abdomen CT 04/19/19 13:44 IMPRESSION: Status post spinal fusion of the lower lumbar spine in this otherwise normal CT scan of the abdomen and pelvis. Electronically Signed: Reilly Germain at 16:29 EST Tel , Service support , Abdomen X-Ray 04/20/19 05:55 IMPRESSION: No suspicious constipation or acute abnormality in the abdomen and pelvis. Electronically Signed: Bharath Edwards MD at 10:46 EST , Service support , Consultations 04/22/19 18:54 to MD Notification of Procedure Routine MD Notified:: Miles Macdonald Dr.- nephrology Operations: None Procedures: Cardioversion, Transesophageal Echo Summary of Care Provided: The patient is a 73 year old F admitted 04/19/2019 due to nausea, vomiting and constipation. 1. Atrial fibrillation/atrial flutter with RVR-cardiology consulted during admission. Underwent cardioversion 04/23/2019 with conversion to sinus rhythm. Continue oral amiodarone, Cardizem and Eliquis. Echo November 2018 showed EF 70%, moderate mitral valve insufficiency, mild pulmonic valve insufficiency, RVSP 42 mmHg. Patient remained in sinus rhythm overnight. Discharge to TCU for further rehab. Patient will continue amiodarone 200 mg 3 times daily for 2 weeks followed by 200 mg twice daily for 2 weeks then amiodarone 2 mg daily per cardiology recommendations. Patient has upcoming follow-up with Marika Goodwin cardiology PA 05/03/19. 2. Acute kidney injury with hyperkalemia on chronic kidney disease stage III-CYRUS secondary to recent nausea, vomiting. Nephrology consulted during admission. Significantly improved. Hold Lasix and lisinopril regimen discontinued. 3. Hypertension-Home metoprolol, lisinopril, Lasix regimen discontinued due to hypotension and acute kidney injury. 4. Hx recurrent pancreatitis 5. Chronic pain 2/2 rheumatoid arthritis- prn pain regimen. 6. Obesity- encouraged diet and lifestyle modifications. General: Alert, Oriented x3, Cooperative HEENT: Atraumatic, PERRLA, EOMI, Normocephalic Neck: Supple, No JVD, Negative Carotid Bruits Lungs: Clear to auscultation, Normal air movement Cardiovascular: Regular rate, Regular Rhythm, Normal S1, Normal S2, No murmurs Abdomen: Bowel Sounds Present, Soft, Non Tender, Non-Distended, Obese Extremities: No clubbing, No cyanosis, No edema, Capillary Refill Less than 3 Seconds Skin: No rashes, No breakdown Musculoskeletal: No Tenderness to Palpation of Joints or Extremities Neurological: Cranial nerves II-XII grossly intact, Neuro grossly intact Psych/Mental Status: Normal Affect, Appropriate Patient seen and examined prior to discharge. Physical assessment as noted above. Patient is stable for discharge with follow up recommendations as noted above. This patient was seen by CRISTELA Flores under the supervision of Dr. Alvarez. - Physical Exam Vitals/I&O's: Vital Signs Temp Pulse Resp BP Pulse Ox 98.7 F 103 H 17 116/53 L 97 04/24/19 03:55 04/24/19 07:12 04/24/19 03:55 04/24/19 03:55 04/24/19 08:34 Oxygen Flow Rate (L/min) 2 Oxygen Delivery Method Room Air Weight: 225 lb 12.794 oz Body Mass Index (BMI) 39.9 Intake and Output for Last 24 Hours 04/22/19 04/23/19 04/24/19 23:59 23:59 23:59 Intake Total 618.44 / 635.14 462.32 / 462.32 75 / 75 Output Total 0 / 0 Balance 618.44 / 635.14 462.32 / 462.32 75 / 75 Current Medications Allopurinol (Zyloprim) 100 mg PO DAILY [facility] Last Admin: 04/23/19 14:56 Dose: 100 mg Documented by: Amiodarone HCl (Cordarone) 200 mg PO TID [facility] Stop: 05/06/19 22:01 Last Admin: 04/24/19 05:16 Dose: 200 mg Documented by: Amiodarone HCl (Cordarone) 200 mg PO BID [facility] Stop: 05/20/19 22:01 Amiodarone HCl (Cordarone) 200 mg PO DAILY [facility] Apixaban (Eliquis) 5 mg PO BID [facility] Last Admin: 04/23/19 22:00 Dose: 5 mg Documented by: Aspirin (Ecotrin) 81 mg PO DAILY@0800 [facility] Last Admin: 04/23/19 09:36 Dose: 81 mg Documented by: Bisacodyl (Dulcolax) 10 mg RECTAL DAILY PRN PRN Reason: Constipation Clobetasol Propionate (Temovate Cream (Bkc)) 1 applic TOPICAL DAILY PRN PRN PRN Reason: Skin Diltiazem HCl (Cardizem Cd) 180 mg PO BID [facility] Last Admin: 04/23/19 21:59 Dose: 180 mg Documented by: Sodium Chloride () 250 mls @ 15 mls/hr IV .[id number] PRN PRN Reason: Saline Flush Sodium Chloride () 1,000 mls @ 0 mls/hr IV .Q0M [facility] Last Infusion: 04/24/19 08:28 Dose: Infused Documented by: Magnesium Hydroxide (Milk Of Magnesia) 30 ml PO DAILY [facility] Last Admin: 04/23/19 14:56 Dose: Not Given Documented by: Ondansetron HCl (Zofran) 4 mg IV Q6H PRN PRN PRN Reason: NAUSEA Last Admin: 04/24/19 03:50 Dose: 4 mg Documented by: Oxycodone HCl (Oxyir) 5 mg PO Q6H PRN PRN PRN Reason: Pain Score 6-10/10 Last Admin: 04/23/19 22:16 Dose: 5 mg Documented by: Pantoprazole Sodium (Protonix) 20 mg PO DAILY [facility] Last Admin: 04/23/19 14:56 Dose: 20 mg Documented by: Polyethylene Glycol (Miralax) 17 gm PO DAILY PRN PRN Reason: Constipation Senna/Docusate Sodium (Senokot-S, Alla-Colace) 1 tablet PO BID [facility] Last Admin: 04/23/19 21:59 Dose: 1 tablet Documented by: Sodium Chloride () 10 - 40 ml IV UD PRN PRN Reason: SALINE FLUSH Last Admin: 04/24/19 03:50 Dose: 10 ml Documented by: Home Medications: Medications to take at Discharge Esomeprazole Mag Trihydrate [Nexium] 20 mg PO DAILY 08/14/16 Oxycodone HCl/Acetaminophen [Percocet 5-325] 1 tab PO BID 05/01/17 allopurinol 100 mg tablet 100 mg PO DAILY 01/25/19 diltiazem HCl 180 mg capsule,extended release 24 hr 180 mg PO BID cap 03/08/19 ezetimibe 10 mg tablet 10 mg PO QHS 03/08/19 Clobetasol/Niacinamide [Clobetasol 0.05%-Niacinamid 4%] 60 gm TP DAILY PRN PRN 04/03/19 Apixaban [Eliquis] 5 mg PO BID 04/19/19 Aspirin E.C. [Ecotrin] 81 mg PO DAILY@0800 04/19/19 Amiodarone HCl [Cordarone] 200 mg PO BID tablet 04/24/19 Amiodarone HCl [Cordarone] 200 mg PO DAILY tablet 04/24/19 Amiodarone HCl [Cordarone] 200 mg PO TID tablet 04/24/19 Primary Care Physician: Miles Reid MD [Primary Care Provider] - Please follow up with your Primary Care Physician in: 1 Week Please Follow Up With: Marika Goodwin PA When: As scheduled, 05/03/19 Disposition: Long-Term facility Minutes spent on discharge:: 35 Patient Condition:: Stable Medical Necessity - Tobacco Use Tobacco Use: Non-smoker Meaningful Use Info Meaningful Use Diagnoses (Choose all that apply): None applicable
[2019-04-24] MEDS: Pantoprazole Sodium 20 MG Tablet PO (09:54)
[2019-04-24] MEDS: Allopurinol 100 MG Tablet PO (09:54)
[2019-04-24] MEDS: Aspirin E.C. 81 MG Tablet PO (09:54)
[2019-04-24] MEDS: dilTIAZem CD 180 MG Capsule PO (09:54)
[2019-04-24] MEDS: APIXABAN 5 MG TABLET PO (09:54)
[2019-04-24] MEDS: Senna/Docusate Sodium 1 Tablet PO (09:55)
[2019-04-24] MEDS: oxyCODONE 5 MG Tablet PO (09:59)
--- NOTE | 2019-04-24 11:24 | NURSING ---
REPORT CALLESD TO MERCEDEZ IN TCU
--- NOTE | 2019-04-24 13:52 | PCM.PN.CARD ---
Subjectve: The patient is awake and alert. She denies any acute complaints. However, she does note that when she is up and active her heart rate is going faster again. Objective: Vital Signs Temp Pulse Resp BP Pulse Ox 97.8 F 89 15 114/56 L 99 04/24/19 09:55 04/24/19 09:55 04/24/19 09:55 04/24/19 09:55 04/24/19 09:55 Oxygen Flow Rate (L/min) 2 Oxygen Delivery Method Room Air Weight: 225 lb 12.794 oz Body Mass Index (BMI) 39.9 Intake and Output for Last 24 Hours 04/22/19 04/23/19 04/24/19 23:59 23:59 23:59 Intake Total 618.44 / 635.14 462.32 / 462.32 75 / 75 Output Total 0 / 0 Balance 618.44 / 635.14 462.32 / 462.32 75 / 75 General: Awake, Alert, Oriented x 3, Cooperative, No Acute Distress, Obese HEENT: Atraumatic, Normocephalic, PERRL, EOMI, Sclera Non Icteric Oral: Moist Mucosa Neck: Supple, Good ROM, No JVD Lungs: Clear to auscultation Cardiovascular: Irregular Rhythm, Normal S1, Normal S2 Abdomen: Bowel Sounds Present, Soft, Non Tender Extremities: Trace RLE Edema, Trace LLE Edema Psych/Mental Status: Appropriate Rhythm: Atrial fibrillation with rapid ventricular response Medical Necessity - Tobacco Use Tobacco Use: Non-smoker Assessment/Plan 1. Atrial fibrillation The patient underwent ARYAN guided synchronized biphasic DC cardioversion yesterday. She returned to atrial fibrillation with rapid ventricular response this day. This is despite being on rate control therapy and antiarrhythmic therapy. She remains on anticoagulant therapy. 2. Mitral valve prolapse/insufficiency She underwent transthoracic echocardiogram as previously noted. At the present time she will need to be followed by history, exam, and echocardiogram as deemed appropriate. 3. Hyperlipidemia She should continue medical management as deemed appropriate. 4. Hypertension Her blood pressure need to be followed. Her medications can be adjusted as deemed appropriate. 5. Constipation She has been undergoing evaluation and care for her concerns of constipation. If this is secondary to her pain management/narcotic medication than they may need to be discontinued and she may need to find alternative therapies for her chronic discomfort. She acknowledges improvements in her bowel movements since admission. 6. Renal insufficiency Her BUN/creatinine are being followed. They are gradually decreasing. 7. Electrolyte disturbance/hyperkalemia Her renal function and potassium level are improved. 8. Obesity Unfortunately she remains obese. This is not helping with respect to her cardiovascular and noncardiac condition. Overall, the concern is with the patient's recurrent atrial fibrillation with rapid ventricular response and difficulty controlling her rate with medication such as calcium channel antagonist/beta-blockers with her history of associated hypotension, wanting to avoid agents such as digitalis based upon her previous fluctuating renal function, and lack of response to antiarrhythmic therapy. Thus a discussion was held with the patient with respect to consideration for repeat EP consultation for possible EPS/RFA versus AV node ablation and permanent pacemaker support. With the patient's permission her case was discussed with [facility] electrophysiology. Status post discussion of the case they agreed with further evaluation with EP consultation with consideration for AV node ablation/permanent pacemaker support. They agreed to accept the patient in transfer for further evaluation and care. The patient's case was discussed the patient and Dr. Alvarez. This note was generated using a voice recognition system and there may be incorrect words, spelling or punctuation that were not noted when reviewing the office note prior to saving.
--- NOTE | 2019-04-24 14:45 | NURSING ---
REPORT CALLED TO ROX SHAFER AT [facility] [phone]
--- NOTE | 2019-04-24 16:10 | NURSING ---
notified patient went back into afib [id number]
== END 2019-04-24 18:03 | disposition short-term general hospital (02) | DRG 683 ==
LOC: ED 17:08 → PCU 17:56
PROVIDERS: Nurse Practitioner Family; Physician Assistant; Admitting Provider Family Medicine; Emergency Provider Emergency Medicine; PCP Family Medicine; Visit Provider Internal Medicine
DX: N17.9 Acute kidney failure, unspecified (principal); K86.1 Other chronic pancreatitis; Z68.41 Body mass index [BMI] 40.0-44.9, adult; I48.0 Paroxysmal atrial fibrillation; E87.5 Hyperkalemia; N18.3 Chronic kidney disease, stage 3 (moderate); K59.00 Constipation, unspecified; M06.9 Rheumatoid arthritis, unspecified; G89.4 Chronic pain syndrome; I34.1 Nonrheumatic mitral (valve) prolapse; I25.2 Old myocardial infarction; I12.9 Hypertensive chronic kidney disease with stage 1 through stage 4 chronic kidney disease, or unspecified chronic kidney disease; E78.49 Other hyperlipidemia; E66.01 Morbid (severe) obesity due to excess calories; Z79.02 Long term (current) use of antithrombotics/antiplatelets; Z87.440 Personal history of urinary (tract) infections; M79.7 Fibromyalgia; Z79.891 Long term (current) use of opiate analgesic; E86.0 Dehydration; Z79.899 Other long term (current) drug therapy; K21.9 Gastro-esophageal reflux disease without esophagitis; Z79.82 Long term (current) use of aspirin; R60.0 Localized edema; I37.1 Nonrheumatic pulmonary valve insufficiency; I34.0 Nonrheumatic mitral (valve) insufficiency
CPT/HCPCS: 36415; 74019; 74176; 80048; 80053; 81001; 82436; 83605; 83690; 83735; 84133; 84300; 84443; 85025; 92960; 93005; 93312; 93320; 93325; 94640; 94762; 97116; 97163; 97166; 97530; 99285; J7030; P9612; A4216; J2405

== ENCOUNTER 2019-05-06 18:05 | Inpatient (IN) | payer MEDICARE, OTHER, SELFPAY ==
[2019-04-25 01:10] VITALS: BMI 41.8
[2019-05-06 18:33] VITALS: BP 143/67; PULSE 82; RESP 17; TEMP 36.4; O2SAT 92; BMI 39.6
--- NOTE | 2019-05-06 19:32 | PCM.HP.STD ---
Problem List (1) Debility Status: Acute (2) Atrial fibrillation with rapid ventricular response Status: Acute (3) Nausea and vomiting Status: Acute (4) Chronic diarrhea Status: Chronic (5) Helicobacter pylori infection Status: Acute (6) Chronic kidney disease Status: Chronic (7) Mitral valve prolapse Status: Chronic (8) Fecal impaction Status: Acute (9) Body mass index (BMI) 40.0-44.9, adult Status: Chronic (10) Hypertension Status: Chronic (11) GERD (gastroesophageal reflux disease) Status: Chronic (12) Gout Status: Acute (13) Edema Status: Chronic (14) Acute kidney injury Status: Acute (15) Hyperkalemia Status: Acute (16) Hyperlipidemia Status: Chronic History of Present Illness Date of Admission: 05/06/19 Chief Complaint: Here for rehabilitation, strengthening, priot to discharge home alone. The patient is a 73 year old Female with below past medical history originally admitted to [facility] with fecal impaction, nausea/vomiting, acute kidney injury, hyperkalemia. She had atrial fibrillation with rapid ventricular response, underwent cardioversion. 04/24/2019 Atrial fibrillation with rapid ventricular response after cardioversion, transferred to [facility] for electrophysiologic management of atrial fibrillation. Nausea, vomiting, diarrhea continues. Fecal impaction treated with combination of senna, Milk of magnesia. 04/26/2019 Micro implant pacer after AV ablation. 04/28/2019 EGD with biopsy positive for helicobacter pylori infection treated with doxycycline, flagyl. Intermittent vomiting continues. Fluctuates from constipation to diarrhea. Right foot gout flare treated with colchicine. 05/06/2019 Admit to TCU with debility, here for rehabilitation, strengthening, prior to discharge home alone. Past Medical History Past Medical History (Chronic Problems): Chronic Problems (Last Updated 04/26/19 @ 09:07 by Marika Schrader) Chronic diarrhea (Chronic) Chronic kidney disease (Chronic) Mitral valve prolapse (Chronic) Body mass index (BMI) 40.0-44.9, adult (Chronic) Hypertension (Chronic) GERD (gastroesophageal reflux disease) (Chronic) Edema (Chronic) Presence of permanent cardiac pacemaker (Chronic ~04/26/19) MICRA placed ;AVN ablation @ [facility] 04/26/19 Old myocardial infarction (Chronic) Nonrheumatic mitral (valve) insufficiency (Chronic) Nonrheumatic mitral (valve) prolapse (Chronic) Recurrent pancreatitis (Chronic) Hyperlipidemia (Chronic) Familial combined hyperlipidemia (Chronic) Morbid obesity with BMI of 40.0-44.9, adult (Chronic) Benign hypertension (Chronic) Medical History: Medical History (Last Updated 04/26/19 @ 09:07 by Marika Schrader) Old myocardial infarction (Chronic) I25.2 Paroxysmal atrial fibrillation (Acute) I48.0 Nonrheumatic mitral (valve) insufficiency (Chronic) I34.0 Nonrheumatic mitral (valve) prolapse (Chronic) I34.1 Recurrent pancreatitis (Chronic) K86.1 Hyperlipidemia (Chronic) E78.5 Familial combined hyperlipidemia (Chronic) E78.4 Morbid obesity with BMI of 40.0-44.9, adult (Chronic) E66.01, Z68.41 Benign hypertension (Chronic) I10 Gout M10.9 Diverticulitis K57.92 Fibromyalgia M79.7 GERD (gastroesophageal reflux disease) K21.9 Rheumatoid arthritis M06.9 Spinal stenosis of lumbar region M48.061 History of cardioversion Onset Date: ~04/23/19 Z98.890 04/23/19 Screening for intestinal cancer (Resolved) Z12.10 Allergies Penicillins Allergy (Verified 03/08/19 10:56) Hives atorvastatin [From Lipitor] Adverse Reaction (Severe, Verified 03/08/19 10:56) Elevated LFT Home Medications: Ambulatory Orders Medication Instructions Recorded ezetimibe 10 mg tablet 10 mg PO QHS 03/08/19 Apixaban [Eliquis] 5 mg PO BID 04/19/19 Aspirin E.C. [Ecotrin] 81 mg PO DAILY@0800 04/19/19 Metronidazole 250 mg PO Q6H 05/06/19 Nitroglycerin SL (ED ONLY) 0.4 mg SUBLINGUAL Q5-15M 05/06/19 [Nitrostat] Oxycodone HCl/Acetaminophen 1 ea PO Q8H PRN PRN 05/06/19 [Oxycodone-Acetaminophen 5-325] amlodipine 10 mg tablet 10 mg PO DAILY 05/06/19 bismuth subsalicylate 262 mg/15 mL 524 mg PO Q6H ml 05/06/19 oral suspension doxycycline monohydrate 100 mg 100 mg PO BID 05/06/19 capsule omeprazole 20 mg capsule,delayed 20 mg PO BID 05/06/19 release thiamine HCl (vitamin B1) 100 mg 100 mg PO DAILY 05/06/19 tablet Surgical History: Surgical History (Last Reviewed 04/03/19 @ 15:[address] Mitch Hernandez, DO) H/O endoscopic retrograde cholangiopancreatography Z98.890 with removal of stent and biliary sludge History of appendectomy Z90.49 History of back surgery Z98.890 History of cardiac radiofrequency ablation Onset Date: ~10/2008 Z98.890 History of cholecystectomy Z90.49 History of left knee replacement Z96.652 S/P lumbar fusion Z98.1 Surgical History: appendectomy, cataract, cholecystectomy, total knee arthroplasty - left, - - Foot surgery, carpal tunnel surgery, ERCP, lumbar spine surgery, RF ablation, micro implant pacer. 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 ASSISTANT history Lives: Alone Smoking Status: Never smoker Tobacco Use: Non-smoker Alcohol: None Drugs: None - *Family History Maternal Family History: Family History (Last Reviewed 04/19/19 @ 18:23 by CARIN Llamas) Sister Hypertension Other Arthritis Cancer Diabetes History Items: Renal Disease - age 70 Paternal Family History: Family History (Last Reviewed 04/19/19 @ 18:23 by CARIN Llamas) Sister Hypertension Other Arthritis Cancer Diabetes History Items: - - age 45 cirrhosis Review of Systems Constitutional: Denies: Chills, Fever, Weight Change HEENT: Denies: Head Aches, Sinus Congestion, Sinus Drainage Cardiovascular: Denies: Chest Pain, Palpitations Respiratory: Denies: Cough, Shortness of breath at rest, Sputum production Gastrointestinal: Denies: Abdominal Pain, Nausea, Vomiting Genitourinary: Denies: Dysuria Musculoskeletal: Denies: Joint Pain, Joint Tenderness Skin: Denies: Rash, Wounds Neurological: Denies: Numbness, Tingling, Focal weakness Psychiatric: Denies: Anxiety, Depression, Homicidal Ideations, Suicidal Ideations Hematologic/ Lymphatic: Denies: Easy Bruising, Easy Bleeding VTE Information - Inpt Only VTE Present on Admission: No VTE Mechan Device Prophylaxis: Knee High JOSE Hose VTE Pharm Prophylaxis ordered?: No Reason prophylaxis not ordered:: Treatment Not Indicated Patient Problems: Active and Suspected Problems (Last Updated 04/26/19 @ 09:07 by Marika Schrader) Debility (Acute) Atrial fibrillation with rapid ventricular response (Acute) Nausea and vomiting (Acute) Helicobacter pylori infection (Acute) Fecal impaction (Acute) Gout (Acute) - Physical Exam Vitals/I&O's: Body Mass Index (BMI) 41.8 General: Alert, Oriented x3, Cooperative HEENT: Atraumatic, PERRLA, EOMI, Normocephalic Neck: Supple, No JVD, Negative Carotid Bruits Lungs: Clear to auscultation, Normal air movement Cardiovascular: Regular rate, No murmurs Abdomen: Bowel Sounds Present, Soft, Non Tender Extremities: No edema, Capillary Refill Less than 3 Seconds Skin: No rashes, No breakdown Musculoskeletal: No Tenderness to Palpation of Joints or Extremities Neurological: Cranial nerves II-XII grossly intact Psych/Mental Status: Normal Affect, Appropriate Assessment/Plan All Active Problems (Last Updated 04/26/19 @ 09:07 by Marika Schrader) Debility (Acute) Atrial fibrillation with rapid ventricular response (Acute) Nausea and vomiting (Acute) Helicobacter pylori infection (Acute) Fecal impaction (Acute) Gout (Acute) Urinary tract infection (Acute) Sepsis (Acute) Sinus tachycardia by electrocardiogram (Acute) Acute kidney injury (Acute) Hyperkalemia (Acute) Constipation (Acute) Lichen sclerosus (Acute) Dyspnea (Acute) Orthopnea (Acute) Paroxysmal atrial fibrillation (Acute) Acute bronchitis (Resolved) Chills (Resolved) Episodic confusion (Resolved) Fall at home (Resolved) Leukocytosis (Resolved) Malaise (Resolved) Screening for intestinal cancer (Resolved) Sepsis (Resolved) Urinary tract infection (Resolved) 73 year old female with below past medical history hospitalized for atrial fibrillation with rapid ventricular response treated with micro implant pacer after AV ablation, complicated by H. Pylori infection, chronic intermittent nausea, vomiting, constipation, diarrhea, admitted to TCU with debility, here for rehabilitation, strengthening, prior to discharge home alone. Debility - PT/OT. Pain - Tylenol 1000MG Q6H PRN pain (1-3), Oxycodone 5MG Q4H PRN pain (4-10). Bowel - Miralax 17GM daily, Senna/colace 1 tablet BID, Dulcolax 10MG daily PRN. Adult immunization - Administer Prevnar 13, Pneumovax 23, Fluzone as appropriate. DVT prophylaxis - Not necessary, already on Eliquis. Hypertension - Amlodipine 10MG daily. Atrial Fibrillation, s/p micro implant pacer after AV meera ablation - Eliquis 5MG BID. H. Pylori infection - Pantoprazole 20MG BID thru 05/18/2019, Pepto Bismol 524MG 4x/day thru 05/17/2019, Doxycycline 100MG BID thru 05/18/2019, Flagyl 250MG 4x/day thru 05/18/2019. Hyperlipidemia - Zetia 10MG QHS. Coronary Artery Disease - NTG 0.4MG Q5M PRN chest pain. Thiamine deficiency - Thiamine 100MG daily.
[2019-05-06 20:18] VITALS: BMI 39.7
[2019-05-06] MEDS: Ezetimibe 10 MG Tablet PO (22:52)
[2019-05-07] MEDS: APIXABAN 5 MG TABLET PO ×2 (05:22→21:14)
[2019-05-07] MEDS: Thiamine Hydrochloride 100 MG Tablet PO (05:22)
[2019-05-07] MEDS: Senna/Docusate Sodium 1 Tablet PO ×2 (05:23→21:14)
[2019-05-07] MEDS: amLODIPine 10 MG Tablet PO (05:23)
[2019-05-07] MEDS: Doxycycline 100 MG CAPSULE PO ×2 (05:23→21:14)
[2019-05-07] MEDS: Pantoprazole Sodium 20 MG Tablet PO ×2 (05:23→21:14)
[2019-05-07 05:59] LABS: Absolute Lymphocyte Count 0.83 X10^3/uL (0.83-4.51); Absolute Neutrophil Count 2.3 X10^3/uL (2.0-7.7); Basophil# 0.02 X10^3/uL; Basophil% 0.5 % (0-1); Eosinophil# 0.21 X10^3/uL; Eosinophils% 5.3 % (0-5); Hematocrit 31.6 % (37-47); Hemoglobin 10.4 g/dL (12.0-15.0); Lymphocyte # 0.83 X10^3/ul (4.0); Lymphocyte % 21.1 % (19-41); Mean Corp Hgb Conc 32.9 g/dL (32-36); Mean Corpuscular Hgb 29.5 pg (27.0-32.0); Mean Corpuscular Volume 89.8 fL (81-99); Mean Platelet Vol. 11.2 fl (6.2-12.0); Monocyte# 0.56 X10^3/uL; Monocyte% 14.2 % (0-10); NRBC Flagged by Analyzer 0 % (0-5); Neutrophil # 2.29 X10^3/uL (2.7-7.7); Neutrophil % 58.1 % (47-70); Platelet Count 175 K/mm3 (150-450); RBC Distribution Width CV 18.3 % (11.6-14.6); RBC Distribution Width SD 57.7 fl (35.1-43.9); Red Blood Count 3.52 M/mm3 (4.2-5.4); White Blood Count 3.9 K/mm3 (4.4-11.0)
[2019-05-07 06:40] LABS: Anion Gap 8 (5-15); BUN 8 mg/dL (7-18); BUN/Creat Ratio 9.9 RATIO (10-20); Calcium,Total 8.2 mg/dL (8.5-10.1); Chloride 107 mmol/L (98-107); EST Glomerular Filtration Rate 74 mL/min (>60); Est Glom Filt Rate - Afr Amer 89 mL/min (>60); Estimated Creatinine Clearance 50.26 ml/min; Glucose 82 mg/dL (74-106); Potassium 3.1 mmol/L (3.5-5.1); Sodium Level 140 mmol/L (136-145)
--- NOTE | 2019-05-07 08:40 | RAD_ITS ---
STUDY: X-RAY - ABDOMEN/PELVIS REASON FOR EXAM: Female, 73 years old. patient complains of nausea/vomiting TECHNIQUE: Two AP supine views of the abdomen and pelvis. COMPARISON: Previous study of 04/20/2019 FINDINGS: Normal visualized lung bases. There is an unremarkable bowel gas pattern. There is no demonstrated free abdominal air. The visualized liver, spleen and kidneys are grossly normal in size and morphology. Normal soft tissue structures. Posterior spinal fusion changes with cherelle and interpeduncular screws noted on the left from L3 to L5. RAD/Abdomen Single View IMPRESSION: Nonspecific bowel gas pattern with no evidence of ileus or obstruction. Electronically Signed: Celso Ayala MD at 17:02 EDT , Service support ,
[2019-05-07 13:17] VITALS: BP 147/54; PULSE 86; RESP 18; TEMP 36.4; O2SAT 98
[2019-05-07] MEDS: Tuberculin,Purif.prot.deriv. 50 TU/ML Vial 5 ML ID (14:04)
[2019-05-07 14:45] VITALS: PULSE 81; RESP 18
[2019-05-07] MEDS: Ezetimibe 10 MG Tablet PO (21:14)
--- NOTE | 2019-05-07 21:17 | NURSING ---
Jonathan ordered this AM not yet administered. Pt states she would like to wait until tomorrow morning to take due to not wanting to be up at night to drink and use restroom.
[2019-05-08] MEDS: Electrolyte Solution/Peg's 4000 ML 1000 ML PO (03:22)
[2019-05-08] MEDS: Doxycycline 100 MG CAPSULE PO ×2 (08:06→20:18)
[2019-05-08] MEDS: APIXABAN 5 MG TABLET PO ×2 (08:06→20:18)
[2019-05-08] MEDS: Senna/Docusate Sodium 1 Tablet PO ×2 (08:07→20:18)
[2019-05-08] MEDS: Thiamine Hydrochloride 100 MG Tablet PO (08:09)
[2019-05-08] MEDS: Pantoprazole Sodium 20 MG Tablet PO ×2 (08:09→20:18)
[2019-05-08] MEDS: amLODIPine 10 MG Tablet PO (08:13)
[2019-05-08 08:18] VITALS: BP 124/68; PULSE 80
--- NOTE | 2019-05-08 09:33 | NURSING ---
Addendum entered by Lilliana Yen 05/08/19 11:01: called BJ, sister back and updated her on new order for lasix and reason pt is not on gout meds. she was satisfied with DR Fuchs orders. Addendum entered by Lilliana Yen 05/08/19 09:48: Dr Holbrook updated, new order for lasix but no gout medication at this time d/t stomach issues/H.pylori. Original Note: sister, AJAY called with many concerns regarding appetite, leg edema, gout, medications & what doctors plans are while pt here. pt not on allopurinol or cholchine here and sister feels like she needs to be on it. Will update Dr Holbrook. Sister would also like if Dr Holbrook would keep her updated if any changes by phone since she lives in [place].
[2019-05-08] MEDS: Furosemide 20 MG Tablet PO (10:33)
[2019-05-08 13:47] VITALS: BP 148/72; PULSE 82; RESP 16; TEMP 36.7; O2SAT 96
[2019-05-08] MEDS: Ezetimibe 10 MG Tablet PO (20:18)
[2019-05-09] MEDS: Furosemide 20 MG Tablet PO (05:43)
[2019-05-09 06:19] LABS: Anion Gap 7 (5-15); BUN 10 mg/dL (7-18); BUN/Creat Ratio 11.8 RATIO (10-20); Calcium,Total 8.4 mg/dL (8.5-10.1); Chloride 106 mmol/L (98-107); Creatinine, Serum 0.84 mg/dL (0.55-1.02); EST Glomerular Filtration Rate 70 mL/min (>60); Est Glom Filt Rate - Afr Amer 85 mL/min (>60); Estimated Creatinine Clearance 47.87 ml/min; Glucose 97 mg/dL (74-106); Potassium 3.6 mmol/L (3.5-5.1); Sodium Level 139 mmol/L (136-145)
[2019-05-09] MEDS: Senna/Docusate Sodium 1 Tablet PO ×2 (08:01→21:06)
[2019-05-09] MEDS: Thiamine Hydrochloride 100 MG Tablet PO (08:01)
[2019-05-09] MEDS: Doxycycline 100 MG CAPSULE PO ×2 (08:01→21:07)
[2019-05-09] MEDS: Polyethylene Glycol 3350 17 GM PACKET PO (08:01)
[2019-05-09] MEDS: APIXABAN 5 MG TABLET PO ×2 (08:01→21:05)
[2019-05-09] MEDS: Pantoprazole Sodium 20 MG Tablet PO ×2 (08:01→21:05)
[2019-05-09] MEDS: amLODIPine 10 MG Tablet PO (08:01)
[2019-05-09 09:50] VITALS: PULSE 75; RESP 18; O2SAT 98
[2019-05-09 14:25] VITALS: BP 112/50; PULSE 75; RESP 18; TEMP 36.6; O2SAT 100
[2019-05-09] MEDS: Ezetimibe 10 MG Tablet PO (21:07)
[2019-05-10] MEDS: Furosemide 20 MG Tablet PO (05:32)
[2019-05-10] MEDS: APIXABAN 5 MG TABLET PO ×2 (08:30→20:33)
[2019-05-10] MEDS: Doxycycline 100 MG CAPSULE PO ×2 (08:30→20:33)
[2019-05-10] MEDS: Polyethylene Glycol 3350 17 GM PACKET PO (08:31)
[2019-05-10] MEDS: Senna/Docusate Sodium 1 Tablet PO (08:31)
[2019-05-10] MEDS: amLODIPine 10 MG Tablet PO (08:31)
[2019-05-10] MEDS: Thiamine Hydrochloride 100 MG Tablet PO (08:32)
[2019-05-10] MEDS: Pantoprazole Sodium 20 MG Tablet PO ×2 (10:49→20:32)
--- NOTE | 2019-05-10 13:47 | PCM.PN.RX ---
<EnidKelly - Last Filed: 05/10/19 13:47> Progress Note - Pharmacy Subjective: TCU Admission Objective: Allergies Penicillins Allergy (Verified 03/08/19 10:56) Hives atorvastatin [From Lipitor] Adverse Reaction (Severe, Verified 03/08/19 10:56) Elevated LFT Current Medications Generic Name Dose Route Start Last Admin Trade Name Freq PRN Reason Stop Dose Admin Acetaminophen 1,000 mg 05/06/19 20:21 Tylenol PO Q6H PRN PRN Pain Score 1-3/10 Amlodipine Besylate 10 mg 05/08/19 08:00 05/10/19 08:31 Norvasc PO 10 mg DAILY@0800 [facility] Administration Apixaban 5 mg 05/07/19 20:00 05/10/19 08:30 Eliquis PO 5 mg BID@0800,1999 [facility] Administration Bisacodyl 10 mg 05/06/19 20:22 Dulcolax PO DAILY PRN PRN Constipation Bismuth Subsalicylate 525 mg 05/07/19 12:00 05/10/19 12:35 Pepto-Bismol PO 05/18/19 12:01 525 mg 4X/DAY EM Administration Calamine/Phenol 1 applic 05/10/19 18:00 Calmoseptine Ointment TOPICAL BID [facility] Protocol Doxycycline Monohydrate 100 mg 05/07/19 20:00 05/10/19 08:30 Doxycycline PO 05/17/19 21:00 100 mg BID@0800,1999 [facility] Administration Ezetimibe 10 mg 05/06/19 22:00 05/09/19 21:07 Zetia PO 10 mg QHS EM Administration Furosemide 20 mg 05/09/19 06:00 05/10/19 05:32 Lasix PO 20 mg DAILY EM Administration Metronidazole 250 mg 05/06/19 22:00 05/10/19 12:35 Flagyl PO 05/17/19 22:01 250 mg 4X/DAY [facility] Administration Nitroglycerin 0.4 mg 05/07/19 00:01 Nitrostat SUBLINGUAL .Q5-15M PRN ANGINA Nutritional Formula (Lactose Free) 120 ml 05/06/19 22:00 05/10/19 12:38 Ensure Enlive PO 120 ml 4X/DAY EM Administration Oxycodone HCl 5 mg 05/06/19 20:21 Oxyir PO Q4H PRN PRN Pain Score 4-10/10 Pantoprazole Sodium 20 mg 05/07/19 20:00 05/10/19 10:49 Protonix PO 20 mg BID@ EM Administration Polyethylene Glycol 17 gm 05/08/19 08:00 05/10/19 08:31 Miralax PO 17 gm DAILY@0800 EM Administration Potassium Chloride 20 meq 05/07/19 17:00 05/10/19 08:31 K-Dur PO 20 meq BIDCM EM Administration Senna/Docusate Sodium 1 tablet 05/07/19 20:00 05/10/19 08:31 Senokot-S, Alla-Colace PO 1 tablet BID@ EM Administration Sodium Chloride 10 - 40 ml 05/07/19 18:52 IV UD PRN SALINE FLUSH Thiamine HCl 100 mg 05/08/19 08:00 05/10/19 08:32 Vitamin B1 PO 100 mg DAILY@0800 EM Administration Tuberculin PPD 5 tu 05/14/19 10:00 Tubersol, Aplisol, Ppd ID 05/14/19 10:01 X1 ONE Problem List (Last Updated 04/26/19 @ 09:07 by Marika Schrader) Debility (Acute) Atrial fibrillation with rapid ventricular response (Acute) Nausea and vomiting (Acute) Chronic diarrhea (Chronic) Helicobacter pylori infection (Acute) Chronic kidney disease (Chronic) Mitral valve prolapse (Chronic) Fecal impaction (Acute) Body mass index (BMI) 40.0-44.9, adult (Chronic) Hypertension (Chronic) GERD (gastroesophageal reflux disease) (Chronic) Gout (Acute) Edema (Chronic) Vital Signs Temp Pulse Resp BP Pulse Ox 97.9 F 75 18 112/50 L 100 05/09/19 14:25 05/09/19 14:25 05/09/19 14:25 05/09/19 14:25 05/09/19 14:25 Oxygen Delivery Method Room Air Weight: 101.633 kg Body Mass Index (BMI) 39.6 Sodium 139 mmol/L (136-145) 05/09/19 05:20 Potassium 3.6 mmol/L (3.5-5.1) 05/09/19 05:20 Chloride 106 mmol/L (98-107) 05/09/19 05:20 Carbon Dioxide 26.0 mmol/L (21.0-32.0) 05/09/19 05:20 Anion Gap 7 (5-15) 05/09/19 05:20 BUN 10 mg/dL (7-18) 05/09/19 05:20 Creatinine 0.84 mg/dL (0.55-1.02) 05/09/19 05:20 Est GFR (MDRD) Af Amer 85 mL/min (>60) 05/09/19 05:20 Est GFR (MDRD) Non-Af 70 mL/min (>60) 05/09/19 05:20 BUN/Creatinine Ratio 11.8 RATIO (10-20) 05/09/19 05:20 Glucose 97 mg/dL (74-106) 05/09/19 05:20 Assessment/Plan: 1. Pain: acetaminophen 1000mg PO Q6H PRN pain 1-3/10 and oxycodone 5mg PO Q4H PRN pain 4-10/10. Please continue to monitor for increased pain and PRN usage. *2. H. pylori infection: pantoprazole 20mg PO BID, bismuth subsalicylate 525mg PO four times daily thru 05/18/2019, metronidazole 250mg PO four times daily thru 05/17/2019, doxycycline 100mg PO BID thru 05/17/2019. Please consider adding a stop date to pantoprazole. Thanks. Please continue to monitor for diarrhea, indigestion, and recurrent infection. 3. Hypertension: amlodipine 10mg PO daily. Please continue to monitor BP and for edema. 4. Atrial fibrillation: apixaban 5mg PO BID. Please continue to monitor renal function and S/S of bleeding/DVT. 5. Hyperlipidemia: ezetimibe 10mg PO QHS. Lipid panel up to date. Please continue to monitor. 6. Leg edema: furosemide 20mg PO daily and potassium chloride 20mEq PO BIDCM. Please continue to monitor potassium levels, renal function, edema. 7. Thiamine deficiency: thiamine 100mg PO daily. Please continue to monitor. 8. CAD: nitroglycerin 0.4mg SL Q5-15M PRN chest pain. Please continue to monitor for chest pain. Psychotropic Medications: None Unnecessary Medications: None Bowel Regimen: Miralax 17gm PO daily, senna/docusate 1T PO BID, bisacodyl 10mg PO daily PRN constipation. Please continue to monitor for constipation and PRN usage. Date of Note:: 05/10/19 - Provider Comments Provider responsibility: Provider responsible to enter orders to implement recommendations <Bhavesh Holbrook Chi - Last Filed: 05/10/19 17:35> Progress Note - Pharmacy Subjective: [] Objective: Allergies Penicillins Allergy (Verified 03/08/19 10:56) Hives atorvastatin [From Lipitor] Adverse Reaction (Severe, Verified 03/08/19 10:56) Elevated LFT Current Medications Generic Name Dose Route Start Last Admin Trade Name Freq PRN Reason Stop Dose Admin Acetaminophen 1,000 mg 05/06/19 20:21 Tylenol PO Q6H PRN PRN Pain Score 1-3/10 Amlodipine Besylate 10 mg 05/08/19 08:00 05/10/19 08:31 Norvasc PO 10 mg DAILY@0800 EM Administration Apixaban 5 mg 05/07/19 20:00 05/10/19 08:30 Eliquis PO 5 mg BID@08 EM Administration Bisacodyl 10 mg 05/06/19 20:22 Dulcolax PO DAILY PRN PRN Constipation Bismuth Subsalicylate 525 mg 05/07/19 12:00 05/10/19 16:01 Pepto-Bismol PO 05/18/19 12:01 525 mg 4X/DAY EM Administration Calamine/Phenol 1 applic 05/10/19 18:00 05/10/19 16:04 Calmoseptine Ointment TOPICAL 1 applicatio BID EM Administration Protocol Doxycycline Monohydrate 100 mg 05/07/19 20:00 05/10/19 08:30 Doxycycline PO 05/17/19 21:00 100 mg BID@0800,1999 EM Administration Ezetimibe 10 mg 05/06/19 22:00 05/09/19 21:07 Zetia PO 10 mg QHS EM Administration Furosemide 20 mg 05/09/19 06:00 05/10/19 05:32 Lasix PO 20 mg DAILY EM Administration Metronidazole 250 mg 05/06/19 22:00 05/10/19 16:01 Flagyl PO 05/17/19 22:01 250 mg 4X/DAY EM Administration Nitroglycerin 0.4 mg 05/07/19 00:01 Nitrostat SUBLINGUAL .Q5-15M PRN ANGINA Nutritional Formula (Lactose Free) 120 ml 05/06/19 22:00 05/10/19 16:04 Ensure Enlive PO 120 ml 4X/DAY EM Administration Oxycodone HCl 5 mg 05/06/19 20:21 Oxyir PO Q4H PRN PRN Pain Score 4-10/10 Pantoprazole Sodium 20 mg 05/07/19 20:00 05/10/19 10:49 Protonix PO 20 mg BID@ EM Administration Polyethylene Glycol 17 gm 05/08/19 08:00 05/10/19 08:31 Miralax PO 17 gm DAILY@0800 EM Administration Potassium Chloride 20 meq 05/07/19 17:00 05/10/19 16:01 K-Dur PO 20 meq BIDCM EM Administration Senna/Docusate Sodium 1 tablet 05/07/19 20:00 05/10/19 08:31 Senokot-S, Alla-Colace PO 1 tablet BID@ [facility] Administration Sodium Chloride 10 - 40 ml 05/07/19 18:52 IV UD PRN SALINE FLUSH Thiamine HCl 100 mg 05/08/19 08:00 05/10/19 08:32 Vitamin B1 PO 100 mg DAILY@0800 EM Administration Tuberculin PPD 5 tu 05/14/19 10:00 Tubersol, Aplisol, Ppd ID 05/14/19 10:01 X1 ONE Problem List (Last Updated 04/26/19 @ 09:07 by Marika Schrader) Debility (Acute) Atrial fibrillation with rapid ventricular response (Acute) Nausea and vomiting (Acute) Chronic diarrhea (Chronic) Helicobacter pylori infection (Acute) Chronic kidney disease (Chronic) Mitral valve prolapse (Chronic) Fecal impaction (Acute) Body mass index (BMI) 40.0-44.9, adult (Chronic) Hypertension (Chronic) GERD (gastroesophageal reflux disease) (Chronic) Gout (Acute) Edema (Chronic) Vital Signs Temp Pulse Resp BP Pulse Ox 97.0 F L 80 16 122/57 H 97 05/10/19 14:23 05/10/19 14:23 05/10/19 14:23 05/10/19 14:23 05/10/19 14:23 Oxygen Delivery Method Room Air Weight: 101.633 kg Body Mass Index (BMI) 39.6 Sodium 139 mmol/L (136-145) 05/09/19 05:20 Potassium 3.6 mmol/L (3.5-5.1) 05/09/19 05:20 Chloride 106 mmol/L (98-107) 05/09/19 05:20 Carbon Dioxide 26.0 mmol/L (21.0-32.0) 05/09/19 05:20 Anion Gap 7 (5-15) 05/09/19 05:20 BUN 10 mg/dL (7-18) 05/09/19 05:20 Creatinine 0.84 mg/dL (0.55-1.02) 05/09/19 05:20 Est GFR (MDRD) Af Amer 85 mL/min (>60) 05/09/19 05:20 Est GFR (MDRD) Non-Af 70 mL/min (>60) 05/09/19 05:20 BUN/Creatinine Ratio 11.8 RATIO (10-20) 05/09/19 05:20 Glucose 97 mg/dL (74-106) 05/09/19 05:20 Assessment/Plan: Psychotropic Medications: Unnecessary Medications: Bowel Regimen: - Provider Comments Provider responsibility: Provider responsible to enter orders to implement recommendations Provider Comments to Recommendations by Pharmacy: Agree
[2019-05-10 14:23] VITALS: BP 122/57; PULSE 80; RESP 16; TEMP 36.1; O2SAT 97
[2019-05-10] MEDS: Menthol/Lanolin/Calamine/Znox 113 GM Tube 1 APPLIC TOPICAL (16:04)
[2019-05-10] MEDS: Ezetimibe 10 MG Tablet PO (20:32)
[2019-05-11] MEDS: oxyCODONE 5 MG Tablet PO (00:44)
[2019-05-11] MEDS: Acetaminophen 500 MG Tablet 1000 MG PO ×2 (02:37→12:59)
--- NOTE | 2019-05-11 04:51 | NURSING ---
0240- small emesis after returning to bed from bathroom with 1 assist. pt denies need for intervention. denies further nausea at this time.
[2019-05-11] MEDS: Furosemide 20 MG Tablet PO (06:22)
[2019-05-11] MEDS: Menthol/Lanolin/Calamine/Znox 113 GM Tube 1 APPLIC TOPICAL ×2 (06:23→16:16)
[2019-05-11] MEDS: Doxycycline 100 MG CAPSULE PO ×2 (08:58→19:46)
[2019-05-11] MEDS: Polyethylene Glycol 3350 17 GM PACKET PO (08:58)
[2019-05-11] MEDS: APIXABAN 5 MG TABLET PO ×2 (08:58→19:46)
[2019-05-11] MEDS: Thiamine Hydrochloride 100 MG Tablet PO (08:59)
[2019-05-11] MEDS: Pantoprazole Sodium 20 MG Tablet PO ×2 (08:59→19:45)
[2019-05-11] MEDS: Senna/Docusate Sodium 1 Tablet PO ×2 (08:59→19:45)
[2019-05-11] MEDS: amLODIPine 10 MG Tablet PO (09:00)
[2019-05-11 09:10] VITALS: BP 111/51; PULSE 80
[2019-05-11 15:04] VITALS: BP 113/47; PULSE 80; RESP 18; TEMP 36.4; O2SAT 97
--- NOTE | 2019-05-11 16:20 | NURSING ---
Pt took meds at this time- a few minutes later pt has small emesis. Denies feeling nauseated prior or at this time- states it just happens quickly.
[2019-05-11] MEDS: Ezetimibe 10 MG Tablet PO (20:51)
[2019-05-12] MEDS: Furosemide 20 MG Tablet PO (04:59)
[2019-05-12] MEDS: Menthol/Lanolin/Calamine/Znox 113 GM Tube 1 APPLIC TOPICAL ×2 (04:59→17:01)
[2019-05-12] MEDS: Polyethylene Glycol 3350 17 GM PACKET PO (08:30)
[2019-05-12] MEDS: Pantoprazole Sodium 20 MG Tablet PO ×2 (08:36→19:48)
[2019-05-12] MEDS: Senna/Docusate Sodium 1 Tablet PO ×2 (08:36→19:48)
[2019-05-12] MEDS: Thiamine Hydrochloride 100 MG Tablet PO (08:36)
[2019-05-12] MEDS: APIXABAN 5 MG TABLET PO ×2 (08:37→19:47)
[2019-05-12] MEDS: Doxycycline 100 MG CAPSULE PO ×2 (08:37→19:47)
[2019-05-12] MEDS: amLODIPine 10 MG Tablet PO (08:40)
[2019-05-12 08:41] VITALS: BP 122/75; PULSE 80
[2019-05-12 10:00] VITALS: PULSE 80; RESP 18; O2SAT 96
--- NOTE | 2019-05-12 10:28 | CASEMGMT ---
Social Work IDT met with pt and pt sister via conference call for care plan meeting. Pt is mod assist for LE ADLS and min assist with UE ADLS. Pt is min assist to CGA for bed transfers. Pt is SBA for toileting tasks and CGA for shower. Pt is able to walk 50ft with walker at CGA. Pt was on low sodium diet and was recommended to change to regular diet-pt declined stating food was too salty and she would rather salt her own food. Sister states pt has seen improvement in pt eating, however pt had been sick for one month and may have an aversion to food because of this and expressed concerns- IDT reassured that pt preferences will be upheld. Pt to drink ensure between meals. SW explained insurance to pt and asked pt sister to bring in POA paperwork- sister agreeable to email it if she can get copies from [facility]. Pt requesting [facility] upon DC. Will continue to follow. Noemi Cummings, social work record label internship Yulisa Hansen, COAL HIKER PRESSER AND SHAPER KNITTED GOODS
[2019-05-12 13:54] VITALS: BP 139/69; PULSE 57; RESP 16; TEMP 36.8; O2SAT 99
--- NOTE | 2019-05-12 15:33 | CASEMGMT ---
Social Work Met with pt for MDS assessment and PHQ-9. While assessing pt, pt complained of food being too hard and dry to eat, SWI offered for pt to be changed to a [facility] soft diet to have softer food, pt denied. Pt also felt as though she did not have an appetite, SWI offered to talk with nursing staff/physician to prescribe appetite stimulant-pt denied stating she prefers to try and get her appetite back naturally, SWI affirmed pts preference and educated pt to being able to ask for appetite stimulant any time she would like. Pt also talked about not sleeping well, but this was a habit from before stay on TCU-SWI offered for pt to be able to take a natural medication to be able to sleep through the night- pt denied at this time but said it might be helpful once she returns home. While in conversation, pt remembered she has O2 at home that she does not need and asked if SWI could have this cancelled, SWI to follow up with [employer]. Pt appreciative of SWI giving pt options to help with different concerns. SWI called [employer]- technical service representative told this SWI that [employer] would need a DC order of the O2 from pt PCP or unit Physician. SWI left note for Physician and informed pt. Pt requesting that the equipment is taken out of the home before DC and gave number of neighbor to coordinate berry picker machine operator. [employer] is not able to immediately pick O2 up, but have stopped billing. Notified pt. Noemi Cummings, social work internship coordinator Yulisa Hansen, BREEDING MANAGER SUMMER COUNSELOR
--- NOTE | 2019-05-12 16:22 | CHAPLAIN ---
Type of Pastoral Visit _x__ Initial Visit ___ Follow-up Visit ___ On-call Visit ___ General Patient Visit ___ Spiritual Assessment ___ Family Conference ___ Bereavement ___ Rapid Response ___ Code Blue ___ Other (describe below) Pastoral Care Referral From _x__ Patient ___ Family ___ Nurse ___ Physician ___ Office Electrician ___ Service Desk Lead ___ Other (describe below) Sacrament/Intervention _x__ Active listening ___ Anointing ___ Scientologist ___ Bereavement ___ Communion _x__ Kristan exploration ___ ___ Life review _x__ Prayer ___ Reconciliation ___ Sacrament of Sick _x__ Supportive presence ___ Wedding ___ Other (describe below) Pastoral Comments
[2019-05-12] MEDS: oxyCODONE 5 MG Tablet PO (17:30)
[2019-05-12] MEDS: Ezetimibe 10 MG Tablet PO ×2 (19:47→19:51)
[2019-05-13] MEDS: Furosemide 20 MG Tablet PO (05:30)
[2019-05-13] MEDS: Menthol/Lanolin/Calamine/Znox 113 GM Tube 1 APPLIC TOPICAL ×2 (05:31→16:30)
[2019-05-13] MEDS: Nystatin Powder 15gm Bottle 1 APPLIC TOPICAL ×2 (05:35→16:31)
[2019-05-13] MEDS: amLODIPine 10 MG Tablet PO (08:16)
[2019-05-13] MEDS: APIXABAN 5 MG TABLET PO ×2 (08:16→20:31)
[2019-05-13] MEDS: Pantoprazole Sodium 20 MG Tablet PO ×2 (08:16→20:32)
[2019-05-13] MEDS: Senna/Docusate Sodium 1 Tablet PO ×2 (08:16→20:32)
[2019-05-13] MEDS: Thiamine Hydrochloride 100 MG Tablet PO (08:16)
[2019-05-13] MEDS: Polyethylene Glycol 3350 17 GM PACKET PO (08:17)
[2019-05-13] MEDS: Doxycycline 100 MG CAPSULE PO ×2 (08:17→20:31)
[2019-05-13 13:52] VITALS: BP 141/68; PULSE 78; RESP 18; TEMP 36.6; O2SAT 97
[2019-05-13] MEDS: Acetaminophen 500 MG Tablet 1000 MG PO (13:57)
--- NOTE | 2019-05-13 16:14 | CASEMGMT ---
Social Work Reviewed and agreed with social work compliance intern documentation on this date. Yulisa Hansen, WEATHERIZATION AND HOUSING INSPECTOR WORD PROCESSING SPECIALIST
[2019-05-14] MEDS: oxyCODONE 5 MG Tablet PO ×2 (00:29→23:56)
[2019-05-14] MEDS: Furosemide 20 MG Tablet PO (04:35)
[2019-05-14] MEDS: Nystatin Powder 15gm Bottle 1 APPLIC TOPICAL ×2 (04:36→17:12)
[2019-05-14] MEDS: Menthol/Lanolin/Calamine/Znox 113 GM Tube 1 APPLIC TOPICAL ×2 (04:37→17:12)
[2019-05-14 05:44] LABS: Absolute Lymphocyte Count 1.13 X10^3/uL (0.83-4.51); Absolute Neutrophil Count 2.5 X10^3/uL (2.0-7.7); Basophil# 0.03 X10^3/uL; Basophil% 0.7 % (0-1); Eosinophils% 4.5 % (0-5); Hematocrit 32.9 % (37-47); Hemoglobin 10.4 g/dL (12.0-15.0); Lymphocyte # 1.13 X10^3/ul (4.0); Lymphocyte % 25.2 % (19-41); Mean Corp Hgb Conc 31.6 g/dL (32-36); Mean Corpuscular Hgb 29.5 pg (27.0-32.0); Mean Corpuscular Volume 93.2 fL (81-99); Mean Platelet Vol. 11.1 fl (6.2-12.0); Monocyte# 0.61 X10^3/uL; Monocyte% 13.6 % (0-10); NRBC Flagged by Analyzer 0 % (0-5); Neutrophil # 2.47 X10^3/uL (2.7-7.7); Neutrophil % 54.9 % (47-70); Platelet Count 183 K/mm3 (150-450); RBC Distribution Width CV 18.7 % (11.6-14.6); Red Blood Count 3.53 M/mm3 (4.2-5.4); White Blood Count 4.5 K/mm3 (4.4-11.0)
[2019-05-14 05:59] LABS: Anion Gap 7 (5-15); BUN 16 mg/dL (7-18); BUN/Creat Ratio 18.1 RATIO (10-20); Calcium,Total 8.6 mg/dL (8.5-10.1); Chloride 104 mmol/L (98-107); Creatinine, Serum 0.88 mg/dL (0.55-1.02); EST Glomerular Filtration Rate 66 mL/min (>60); Est Glom Filt Rate - Afr Amer 80 mL/min (>60); Estimated Creatinine Clearance 45.69 ml/min; Glucose 135 mg/dL (74-106); Potassium 3.7 mmol/L (3.5-5.1); Sodium Level 137 mmol/L (136-145)
[2019-05-14] MEDS: Polyethylene Glycol 3350 17 GM PACKET PO (09:11)
[2019-05-14] MEDS: Doxycycline 100 MG CAPSULE PO ×2 (09:11→20:02)
[2019-05-14] MEDS: APIXABAN 5 MG TABLET PO ×2 (09:11→20:02)
[2019-05-14] MEDS: Pantoprazole Sodium 20 MG Tablet PO ×2 (09:12→20:02)
[2019-05-14] MEDS: Thiamine Hydrochloride 100 MG Tablet PO (09:12)
[2019-05-14] MEDS: Senna/Docusate Sodium 1 Tablet PO ×2 (09:12→20:02)
[2019-05-14] MEDS: amLODIPine 10 MG Tablet PO (09:18)
[2019-05-14] MEDS: Tuberculin,Purif.prot.deriv. 50 TU/ML Vial 5 ML ID (11:23)
--- NOTE | 2019-05-14 12:04 | CASEMGMT ---
Social Work Reviewed and agreed with social work international trade manager documentation on this date. Yulisa Hansen, RETORT COOLER OIL FIELD PIPELINE SUPERVISOR
[2019-05-14 13:34] VITALS: BP 116/71; PULSE 81; RESP 16; TEMP 36.7; O2SAT 97
--- NOTE | 2019-05-14 16:17 | CASEMGMT ---
Social Work Met with pt to provide emotional support d/t isolation precautions. Provided picture/card written from community members. Noemi Cummings, social work internet marketing coordinator PEEWEE Lacy MEDICAL FACILITIES SECTION DIRECTOR
[2019-05-14] MEDS: Ezetimibe 10 MG Tablet PO (20:02)
[2019-05-15] MEDS: Menthol/Lanolin/Calamine/Znox 113 GM Tube 1 APPLIC TOPICAL ×2 (05:46→17:53)
[2019-05-15] MEDS: Furosemide 20 MG Tablet PO (05:46)
[2019-05-15] MEDS: Nystatin Powder 15gm Bottle 1 APPLIC TOPICAL ×2 (05:47→17:52)
[2019-05-15] MEDS: Acetaminophen 500 MG Tablet 1000 MG PO (05:49)
[2019-05-15] MEDS: Doxycycline 100 MG CAPSULE PO ×2 (08:29→20:00)
[2019-05-15] MEDS: APIXABAN 5 MG TABLET PO ×2 (08:29→20:00)
[2019-05-15] MEDS: Pantoprazole Sodium 20 MG Tablet PO ×2 (08:29→20:00)
[2019-05-15] MEDS: amLODIPine 10 MG Tablet PO (08:29)
[2019-05-15] MEDS: Thiamine Hydrochloride 100 MG Tablet PO (08:30)
[2019-05-15] MEDS: Senna/Docusate Sodium 1 Tablet PO ×2 (08:31→20:00)
[2019-05-15] MEDS: Polyethylene Glycol 3350 17 GM PACKET PO (08:31)
--- NOTE | 2019-05-15 09:20 | NURSING ---
this RN notified that pt was puking while in the shower. entered room and pt still showering with therapy. pt reports she feels much better after emesis and no longer feels nauseated. emesis not viewed by RN. will continue to monitor.
[2019-05-15 14:13] VITALS: BP 129/65; PULSE 81; RESP 14; TEMP 36.2; O2SAT 99
[2019-05-15 21:15] VITALS: RESP 16
[2019-05-15] MEDS: Ezetimibe 10 MG Tablet PO (21:24)
[2019-05-16] MEDS: Acetaminophen 500 MG Tablet 1000 MG PO (02:19)
[2019-05-16] MEDS: Menthol/Lanolin/Calamine/Znox 113 GM Tube 1 APPLIC TOPICAL ×2 (05:22→17:56)
[2019-05-16] MEDS: Furosemide 20 MG Tablet PO (05:22)
[2019-05-16] MEDS: Nystatin Powder 15gm Bottle 1 APPLIC TOPICAL ×2 (05:22→17:56)
[2019-05-16] MEDS: Thiamine Hydrochloride 100 MG Tablet PO (07:53)
[2019-05-16] MEDS: Senna/Docusate Sodium 1 Tablet PO ×2 (07:53→21:10)
[2019-05-16] MEDS: APIXABAN 5 MG TABLET PO ×2 (07:54→21:10)
[2019-05-16] MEDS: amLODIPine 10 MG Tablet PO (07:54)
[2019-05-16] MEDS: Pantoprazole Sodium 20 MG Tablet PO ×2 (07:54→21:10)
[2019-05-16] MEDS: Polyethylene Glycol 3350 17 GM PACKET PO (07:56)
[2019-05-16] MEDS: Doxycycline 100 MG CAPSULE PO ×3 (09:05→21:10)
[2019-05-16 14:09] VITALS: BP 151/73; PULSE 79; RESP 14; TEMP 36.3; O2SAT 99
[2019-05-16] MEDS: Ezetimibe 10 MG Tablet PO (21:11)
[2019-05-17] MEDS: Furosemide 20 MG Tablet PO (04:19)
[2019-05-17] MEDS: Menthol/Lanolin/Calamine/Znox 113 GM Tube 1 APPLIC TOPICAL ×2 (04:20→17:31)
[2019-05-17] MEDS: Nystatin Powder 15gm Bottle 1 APPLIC TOPICAL ×2 (04:31→17:28)
[2019-05-17] MEDS: oxyCODONE 5 MG Tablet PO (06:57)
[2019-05-17] MEDS: Thiamine Hydrochloride 100 MG Tablet PO (08:11)
[2019-05-17] MEDS: Pantoprazole Sodium 20 MG Tablet PO ×2 (08:13→20:10)
[2019-05-17] MEDS: Polyethylene Glycol 3350 17 GM PACKET PO (08:13)
[2019-05-17] MEDS: Senna/Docusate Sodium 1 Tablet PO ×2 (08:13→20:11)
[2019-05-17] MEDS: APIXABAN 5 MG TABLET PO ×2 (08:13→20:10)
[2019-05-17] MEDS: amLODIPine 10 MG Tablet PO (08:13)
[2019-05-17] MEDS: Acetaminophen 500 MG Tablet 1000 MG PO (08:19)
[2019-05-17] MEDS: Ondansetron ODT 4 MG Tablet 8 MG PO (08:40)
--- NOTE | 2019-05-17 08:41 | NURSING ---
Pt was observed vomiting a moderate amount of light pink/clear thin emesis this morning. Pt c/o of nausea that started last night and headache, Pt received tylenol and Zofran per request.
[2019-05-17 14:13] VITALS: BP 133/66; PULSE 81; RESP 18; TEMP 36.5; O2SAT 97
--- NOTE | 2019-05-17 14:15 | MDS.RN ---
Information for the mds was obtained from review of the clinical record, interview of resident, staff, and direct observation of resident's care.
--- NOTE | 2019-05-17 18:18 | NURSING ---
Pt's requested that this nurse called her sister Chelsea (BJ). This nurse called sister per request. This nurse talked to sister extensively going over her medication list, current treatment plan and listened to sisters concerns. Sister asked this nurse to leave a message for Dr. Holbrook asking for him to call her relaying her concerns d/t ATB therapy stating pt is still vomiting and c/o of a funny taste in her mouth and food just seems unappetizing and she feels like pt may be having a set back. This nurse explained that GI upset and change in taste buds could be a side-effect of flagyl which is one of the ATBs she was taking but was scheduled to be completed tonight. Sister is concerned that ATB therapy is ending d/t pt vomiting on multiple occasions and feels she may not have absorbed enough of the ATB and was wondering if tx should continue and maybe the N/V could still be a side effect of the H-pylori. Sister also expresses that she would like the pepto scheduled instead of PRN that she was under the impression h-pylori was treated using a quad tx approach. RN made aware and message left for Dr. Holbrook.
[2019-05-17] MEDS: Doxycycline 100 MG CAPSULE PO (20:10)
[2019-05-17] MEDS: Ezetimibe 10 MG Tablet PO (20:13)
[2019-05-18] MEDS: Furosemide 20 MG Tablet PO (06:00)
[2019-05-18] MEDS: Menthol/Lanolin/Calamine/Znox 113 GM Tube 1 APPLIC TOPICAL ×2 (06:01→16:23)
[2019-05-18] MEDS: Nystatin Powder 15gm Bottle 1 APPLIC TOPICAL ×2 (06:01→16:24)
--- NOTE | 2019-05-18 08:18 | RAD_ITS ---
STUDY: X-RAY - ABDOMEN/PELVIS REASON FOR EXAM: Female, 73 years old. N/v, hx H-Pylori, obstruction TECHNIQUE: Single AP view of the abdomen / pelvis. COMPARISON: Comparison is made with prior study dated May 07, 2019. FINDINGS: Normal visualized lung bases. There is a moderate amount of colonic fecal material. The visualized liver, spleen and kidneys are grossly normal in size and morphology. There are calcified phleboliths in the pelvis. There are diffuse degenerative changes of the visualized lumbar spine. Prior intrapedicular screw fixation at the L3-L4 and L4-L5 levels. RAD/Abdomen Single View IMPRESSION: Moderate amount of fecal material is seen throughout the colon. There has been no change since prior study. Electronically Signed: Wilman Louise, at 11:07 EDT , Service support ,
[2019-05-18] MEDS: APIXABAN 5 MG TABLET PO ×2 (08:23→20:37)
[2019-05-18] MEDS: Polyethylene Glycol 3350 17 GM PACKET PO (08:23)
[2019-05-18] MEDS: amLODIPine 10 MG Tablet PO (08:23)
[2019-05-18] MEDS: Pantoprazole Sodium 20 MG Tablet PO ×2 (08:23→20:37)
[2019-05-18] MEDS: Senna/Docusate Sodium 1 Tablet PO ×2 (08:24→20:37)
[2019-05-18 08:29] VITALS: PULSE 78; RESP 16; O2SAT 98
[2019-05-18 08:54] LABS: Absolute Lymphocyte Count 1.19 X10^3/uL (0.83-4.51); Absolute Neutrophil Count 4.2 X10^3/uL (2.0-7.7); Basophil# 0.03 X10^3/uL; Basophil% 0.5 % (0-1); Eosinophils% 1.6 % (0-5); Hematocrit 38.1 % (37-47); Hemoglobin 11.7 g/dL (12.0-15.0); Lymphocyte # 1.19 X10^3/ul (4.0); Lymphocyte % 19.4 % (19-41); Mean Corp Hgb Conc 30.7 g/dL (32-36); Mean Corpuscular Hgb 28.7 pg (27.0-32.0); Mean Corpuscular Volume 93.6 fL (81-99); Mean Platelet Vol. 10.5 fl (6.2-12.0); Monocyte# 0.56 X10^3/uL; Monocyte% 9.1 % (0-10); NRBC Flagged by Analyzer 0 % (0-5); Neutrophil # 4.22 X10^3/uL (2.7-7.7); Neutrophil % 68.9 % (47-70); Platelet Count 235 K/mm3 (150-450); RBC Distribution Width CV 18.5 % (11.6-14.6); RBC Distribution Width SD 63.3 fl (35.1-43.9); Red Blood Count 4.07 M/mm3 (4.2-5.4); White Blood Count 6.1 K/mm3 (4.4-11.0)
[2019-05-18 09:07] LABS: Anion Gap 8 (5-15); BUN 13 mg/dL (7-18); BUN/Creat Ratio 12.6 RATIO (10-20); Calcium,Total 9.3 mg/dL (8.5-10.1); Chloride 101 mmol/L (98-107); Creatinine, Serum 1.03 mg/dL (0.55-1.02); EST Glomerular Filtration Rate 56 mL/min (>60); Est Glom Filt Rate - Afr Amer 67 mL/min (>60); Estimated Creatinine Clearance 39.04 ml/min; Glucose 174 mg/dL (74-106); Potassium 4.3 mmol/L (3.5-5.1); Sodium Level 138 mmol/L (136-145)
--- NOTE | 2019-05-18 09:32 | NURSING ---
pt off unit to xray of abdomen d/t poor appetite & intermittent nausea, vomiting.
[2019-05-18] MEDS: 0.9% Normal Saline 1,000 ML 75 ML IV (11:07)
--- NOTE | 2019-05-18 12:45 | NURSING ---
R' STRAIGHT CATHED AT THIS TIME TO OBTAIN URINE FOR UA C+S. R' TOLERATED WELL.
[2019-05-18 13:20] LABS: Mucous, Urine 0 SEEN /hpf (<or=2+); Red Blood Cells-Urine 0 SEEN /hpf (0-5)
[2019-05-18 13:21] LABS: Color, Urine Yellow (Yellow); Glucose, Dipstick Normal (Normal); Ketone-Dipstick Negative (Negative); Leukocyte Esterase-Dipstick 25 /ul (Negative); Nitrite-Dipstick Negative (Negative); Occult Blood-Urine Negative /ul (Negative); Protein-Dipstick Negative (Negative); Urine Bilirubin Dipstick Negative (Negative); Urine Clarity Sl. Cloudy (Clear); Urine Urobilinogen Normal (Normal)
[2019-05-18 13:27] LABS: Bacteria RARE /hpf (None Seen); Hyaline Cast 0-5 SEEN /lpf (0-5); Squamous Epithelial Cells - UA 0-5 SEEN /hpf (5-10); White Blood Cells 0-5 SEEN /hpf (0-5)
[2019-05-18 14:10] VITALS: BP 139/73; PULSE 83; RESP 14; TEMP 36.5; O2SAT 98
[2019-05-18] MEDS: Acetaminophen 500 MG Tablet 1000 MG PO (15:16)
[2019-05-18] MEDS: Ondansetron ODT 4 MG Tablet 8 MG PO (16:29)
--- NOTE | 2019-05-18 16:30 | NURSING ---
R' HAD SMALL EMESIS AT THIS TIME. ZOFRAN GIVEN. OFFERED DIVINA-LIANNA, COOL CLOTH, REFUSED. DENIES NEEDS AT THIS TIME. IVF INFUSING 75CC/HR. WILL MONITOR.
[2019-05-18] MEDS: oxyCODONE 5 MG Tablet PO (17:43)
[2019-05-18] MEDS: Magnesium Citrate 300 ML PO (20:25)
[2019-05-18 21:06] VITALS: BP 133/66; PULSE 84; TEMP 36.7; O2SAT 98
[2019-05-19] MEDS: 0.9% Normal Saline 1,000 ML 75 ML IV ×2 (00:07→12:36)
[2019-05-19] MEDS: Ondansetron ODT 4 MG Tablet 8 MG PO (02:37)
--- NOTE | 2019-05-19 04:26 | NURSING ---
Per doctor order given mag citrate had a positive result large, soft stool. Pt assisted to [facility] pt had a moderate amount 300 ml of yellow emesis at 2 am. Pt stated she felt okay and didn't feel nauseated before heading to the [facility]. Denies any pain or discomfort at this time will continue to monitor. Pt continues to have NS running at 75ml/hr in left elbow. Rn made aware.
--- NOTE | 2019-05-19 04:52 | NURSING ---
started pt on mag cit. at hs, pt took 2 sips and then started to feel nauseous and vomit. emesis was a small amount and yellow in color. pt took a break from the mag citrate and continued it around midnight. pt was able to finish the rest of bottle within a hour or 2. pt was vomited once more and was given Zofran for nausea. pt resting with call light in reach, will continue to monitor.
[2019-05-19] MEDS: Nystatin Powder 15gm Bottle 1 APPLIC TOPICAL ×2 (06:13→17:02)
[2019-05-19] MEDS: Menthol/Lanolin/Calamine/Znox 113 GM Tube 1 APPLIC TOPICAL ×2 (06:13→17:02)
[2019-05-19] MEDS: Polyethylene Glycol 3350 17 GM PACKET PO (08:11)
[2019-05-19] MEDS: Pantoprazole Sodium 20 MG Tablet PO ×2 (08:11→20:02)
[2019-05-19] MEDS: Senna/Docusate Sodium 1 Tablet PO ×2 (08:11→20:02)
[2019-05-19] MEDS: amLODIPine 10 MG Tablet PO (08:12)
[2019-05-19] MEDS: APIXABAN 5 MG TABLET PO ×2 (08:12→20:02)
[2019-05-19 08:17] VITALS: BP 150/70; PULSE 80
[2019-05-19 14:04] VITALS: BP 162/88; PULSE 84; RESP 16; TEMP 37.2; O2SAT 96
--- NOTE | 2019-05-19 16:23 | NURSING ---
Addendum entered by Lilliana Yen 05/19/19 16:25: Immediately after staff left room, pt on phone to BJ, sister stating that she just can't get ahead. Its so frustrating, tough getting old laughing. Original Note: pt gout flaring up in RT big toe, Dr Holbrook aware and ordered medrol dose armin, when that complete will restart pts allopurinol that she was taking at home prior to admit.
[2019-05-19 16:37] LABS: H.Pylori Breath Test Negative (Negative)
--- NOTE | 2019-05-19 16:42 | NURSING ---
Pt had no c/o nausea/vomiting today and ate 75%-100% for both breakfast and lunch and stated she was starting to feel better since she stopped her ATB therapy.
[2019-05-19] MEDS: MethylPREDNISolone DosePak 4 MG BOX PO ×2 (17:04→22:00)
[2019-05-19] MEDS: oxyCODONE 5 MG Tablet PO (17:44)
[2019-05-19 19:52] VITALS: RESP 18
[2019-05-19] MEDS: Acetaminophen 500 MG Tablet 1000 MG PO (21:01)
--- NOTE | 2019-05-19 21:37 | NURSING ---
Sister notified that H. Pylori test came back negative. Very appreciative of the call.
[2019-05-20] MEDS: Menthol/Lanolin/Calamine/Znox 113 GM Tube 1 APPLIC TOPICAL ×2 (06:18→17:29)
[2019-05-20] MEDS: Nystatin Powder 15gm Bottle 1 APPLIC TOPICAL ×2 (06:18→17:30)
[2019-05-20] MEDS: MethylPREDNISolone DosePak 4 MG BOX PO ×4 (08:06→21:18)
[2019-05-20] MEDS: APIXABAN 5 MG TABLET PO ×2 (08:06→21:19)
[2019-05-20] MEDS: Polyethylene Glycol 3350 17 GM PACKET PO (08:07)
[2019-05-20] MEDS: Senna/Docusate Sodium 1 Tablet PO ×2 (08:07→21:19)
[2019-05-20] MEDS: Pantoprazole Sodium 20 MG Tablet PO ×2 (08:07→21:19)
[2019-05-20] MEDS: amLODIPine 10 MG Tablet PO (08:07)
[2019-05-20 09:45] VITALS: PULSE 79; RESP 18; O2SAT 98
[2019-05-20 14:25] VITALS: BP 127/64; PULSE 83; RESP 18; TEMP 36.9; O2SAT 97
[2019-05-20] MEDS: 0.9% Saline Lock 10 ML Syringe IV (21:24)
[2019-05-21 05:27] LABS: Absolute Lymphocyte Count 0.55 X10^3/uL (0.83-4.51); Absolute Neutrophil Count 5.2 X10^3/uL (2.0-7.7); Hematocrit 35.6 % (37-47); Hemoglobin 11.1 g/dL (12.0-15.0); Lymphocyte # 0.55 X10^3/ul (4.0); Lymphocyte % 8.9 % (19-41); Mean Corp Hgb Conc 31.2 g/dL (32-36); Mean Corpuscular Hgb 29.6 pg (27.0-32.0); Mean Corpuscular Volume 94.9 fL (81-99); Mean Platelet Vol. 10.6 fl (6.2-12.0); Monocyte# 0.36 X10^3/uL; Monocyte% 5.8 % (0-10); NRBC Flagged by Analyzer 0 % (0-5); POSITIVE DIFFERENTIAL YES; Platelet Count 186 K/mm3 (150-450); RBC Distribution Width CV 17.9 % (11.6-14.6); Red Blood Count 3.75 M/mm3 (4.2-5.4); White Blood Count 6.2 K/mm3 (4.4-11.0)
[2019-05-21 05:31] LABS: Differential Indicated SCAN CRITERIA MET
[2019-05-21] MEDS: Nystatin Powder 15gm Bottle 1 APPLIC TOPICAL ×2 (05:35→16:58)
[2019-05-21] MEDS: Menthol/Lanolin/Calamine/Znox 113 GM Tube 1 APPLIC TOPICAL ×2 (05:36→16:57)
[2019-05-21 05:42] LABS: Anion Gap 6 (5-15); BUN 18 mg/dL (7-18); BUN/Creat Ratio 21.6 RATIO (10-20); Calcium,Total 8.8 mg/dL (8.5-10.1); Chloride 104 mmol/L (98-107); Creatinine, Serum 0.83 mg/dL (0.55-1.02); EST Glomerular Filtration Rate 71 mL/min (>60); Est Glom Filt Rate - Afr Amer 86 mL/min (>60); Estimated Creatinine Clearance 48.45 ml/min; Glucose 133 mg/dL (74-106); Potassium 5.1 mmol/L (3.5-5.1); Sodium Level 137 mmol/L (136-145)
[2019-05-21 05:50] LABS: Differential Comment SCANNED
[2019-05-21] MEDS: MethylPREDNISolone DosePak 4 MG BOX PO ×4 (07:46→21:43)
[2019-05-21] MEDS: APIXABAN 5 MG TABLET PO ×2 (07:46→21:43)
[2019-05-21] MEDS: Pantoprazole Sodium 20 MG Tablet PO ×2 (07:47→21:42)
[2019-05-21] MEDS: Polyethylene Glycol 3350 17 GM PACKET PO (07:47)
[2019-05-21] MEDS: amLODIPine 10 MG Tablet PO (07:47)
[2019-05-21 13:07] VITALS: BP 151/92; PULSE 86; RESP 16; TEMP 36.6; O2SAT 97
[2019-05-21] MEDS: Senna/Docusate Sodium 1 Tablet PO (21:42)
[2019-05-22] MEDS: Nystatin Powder 15gm Bottle 1 APPLIC TOPICAL ×2 (06:53→18:19)
[2019-05-22] MEDS: Menthol/Lanolin/Calamine/Znox 113 GM Tube 1 APPLIC TOPICAL ×2 (06:53→18:18)
[2019-05-22] MEDS: MethylPREDNISolone DosePak 4 MG BOX PO ×3 (09:06→20:25)
[2019-05-22] MEDS: Pantoprazole Sodium 20 MG Tablet PO ×2 (09:07→20:26)
[2019-05-22] MEDS: Senna/Docusate Sodium 1 Tablet PO ×2 (09:07→20:26)
[2019-05-22] MEDS: Polyethylene Glycol 3350 17 GM PACKET PO (09:07)
[2019-05-22] MEDS: amLODIPine 10 MG Tablet PO (09:07)
[2019-05-22] MEDS: APIXABAN 5 MG TABLET PO ×2 (09:08→20:25)
[2019-05-22 13:41] VITALS: BP 133/75; PULSE 84; RESP 18; TEMP 36.4; O2SAT 97
[2019-05-23] MEDS: Menthol/Lanolin/Calamine/Znox 113 GM Tube 1 APPLIC TOPICAL ×2 (06:49→18:17)
[2019-05-23] MEDS: Nystatin Powder 15gm Bottle 1 APPLIC TOPICAL ×2 (06:49→18:18)
[2019-05-23] MEDS: amLODIPine 10 MG Tablet PO (08:14)
[2019-05-23] MEDS: Polyethylene Glycol 3350 17 GM PACKET PO (08:14)
[2019-05-23] MEDS: APIXABAN 5 MG TABLET PO ×2 (08:14→19:49)
[2019-05-23] MEDS: Pantoprazole Sodium 20 MG Tablet PO ×2 (08:15→19:49)
[2019-05-23] MEDS: Senna/Docusate Sodium 1 Tablet PO ×2 (08:15→19:49)
[2019-05-23] MEDS: MethylPREDNISolone DosePak 4 MG BOX PO ×2 (08:19→19:49)
[2019-05-23 13:49] VITALS: BP 129/55; PULSE 83; RESP 16; TEMP 36.9; O2SAT 98
[2019-05-24] MEDS: Nystatin Powder 15gm Bottle 1 APPLIC TOPICAL ×2 (06:00→18:03)
[2019-05-24] MEDS: Menthol/Lanolin/Calamine/Znox 113 GM Tube 1 APPLIC TOPICAL ×2 (06:00→18:03)
[2019-05-24] MEDS: Pantoprazole Sodium 20 MG Tablet PO ×2 (08:05→20:14)
[2019-05-24] MEDS: Senna/Docusate Sodium 1 Tablet PO ×2 (08:05→20:14)
[2019-05-24] MEDS: MethylPREDNISolone DosePak 4 MG BOX PO (08:05)
[2019-05-24] MEDS: amLODIPine 10 MG Tablet PO (08:05)
[2019-05-24] MEDS: APIXABAN 5 MG TABLET PO ×2 (08:05→20:14)
[2019-05-24] MEDS: Polyethylene Glycol 3350 17 GM PACKET PO (08:06)
[2019-05-24 10:00] VITALS: PULSE 79; RESP 18; O2SAT 97
[2019-05-24 14:48] VITALS: BP 153/75; RESP 16; TEMP 36.7; O2SAT 96
--- NOTE | 2019-05-24 15:52 | CASEMGMT ---
Social Work Met with pt to discuss DC plans. Asked pt how she felt about her progress. Pt felt she has been doing well, but has more that she can work on to get stronger. Talked with pt about how therapy feels she is making good progress and would like to potentially set DC date- pt was not agreeable and felt that she was being pushed out because she had made too good of progress, assured pt that if she did not feel she was able and ready to go home safely, then there were some different options we have. Explained to pt options of SNF at DC or appeal rights. Pt requesting SWI talk with therapy and with sister. SW/SWI talked with therapy. Therapy feels that continuing on with pt to increase strength and confidence by letting pt be more independent would be the goal for DC, along with ensuring that pt has community resources in place before DC. Therapy recommending DC 06/02. Talked with pt and pt sister via conference call. Discussed with pt and sister the goals that therapy has to make pt more independent to be able to set DC date for 06/02. Sister expressed concerns that steroids given to pt for gout skewed therapy's last assessment, assured sister that all of the pts progress is taken into consideration, and would continue to be taken into consideration at next assessment. Sister and pt also concerned about care needs and safety of going home and the financial impact of having care within the home. SWI/SW to send Medicaid application to sister to fill out and email back to see if pt qualifies and can have some home services paid- explained PASSPORT services, if pt would qualify, but that it may take time for these services to be in place. Explained SNF options to pt that she would not admit under skilled services to receive skilled therapy but facility would evaluate pt to see if she would qualify for part B therapy benefits. Also, that the SNF could provide an intermediate solution to allow pt to see her progress and strength level before returning home. Educated pt and sister that if pt steroids for gout DID effect last therapy assessment, and pt declines in her progress by next assessment, IDT can work to change DC date if conditions are unsafe for pt to DC home. Provided emotional support, validation of feelings, and active listening. Pt and sister stated their confidence in the plan to moving forward. Noemi Cummings, social work unpaid intern Yulisa Hansen, ONLINE FACILITATOR ENGINE COWLING INSTALLER
--- NOTE | 2019-05-24 19:37 | DCINST_ITS ---
- Discharge Diagnoses Current Active Problems: Current Active and Chronic Problems (Last Updated 04/26/19 @ 09:07 by Marika Schrader) Debility (Acute) Atrial fibrillation with rapid ventricular response (Acute) Nausea and vomiting (Acute) Chronic diarrhea (Chronic) Helicobacter pylori infection (Acute) Chronic kidney disease (Chronic) Mitral valve prolapse (Chronic) Fecal impaction (Acute) Body mass index (BMI) 40.0-44.9, adult (Chronic) Hypertension (Chronic) GERD (gastroesophageal reflux disease) (Chronic) Gout (Acute) Edema (Chronic) You will use the following diet at home:: No restrictions, Regular Your food should be the consistency of: Regular Your liquids should be the consistency of: Regular/Thin Discharge Activity: Return to Normal Activity, May Shower, Use Walker Weight Bearing Status: Weight bearing as tolerated Call your doctor if you observe: Fever of 101 or Higher, Inability to urinate, Inability to have a bowel movement, Shortness of breath, Chest pain, Uncontroll ed pain Allergies/Adverse Reactions: Allergies Penicillins Allergy (Verified 03/08/19 10:56) Hives atorvastatin [From Lipitor] Adverse Reaction (Severe, Verified 03/08/19 10:56) Elevated LFT Medications to take at Discharge Apixaban [Eliquis] 5 mg PO BID 04/19/19 Acetaminophen [Tylenol] 1,000 mg PO Q6H PRN PRN tablet 05/24/19 Allopurinol [Zyloprim] 300 mg PO DAILYCM #30 tab 05/24/19 Amlodipine Besylate [Norvasc] 10 mg PO DAILY #30 tab 05/24/19 Menthol/Lanolin/Calamine/Znox [Calmoseptine Ointment] 1 applic TOPICAL BID tube 05/24/19 Nystatin Powder [Mycostatin Powder] 1 applic TOPICAL BID bottle 05/24/19 Pantoprazole Sodium [Protonix] 20 mg PO BID@0800,2000 #60 tab 05/24/19 Potassium Chloride [K-Dur] 20 meq PO BIDCM #60 tab 05/24/19 The following prescriptions were given: Potassium Chloride [K-Dur] 20 meq PO BIDCM #60 tab [facility] Amlodipine Besylate [Norvasc] 10 mg PO DAILY #30 tab Transmission Status: [facility] Pantoprazole Sodium [Protonix] 20 mg PO BID@0800,1999 #60 tab Transmission Status: [facility] Allopurinol [Zyloprim] 300 mg PO DAILYCM #30 tab Transmission Status: [facility] Primary Care Physician: Miles Reid MD [Primary Care Provider] - Please follow up with your Primary Care Physician in: 1 week. Test Results: Test results from this visit will be discussed in further detail at your follow- up appointment, if applicable. Please Follow Up With: MICRA (PACEMAKER) FOLLOW UP When: 2 weeks. Please Follow Up With: Chema Langston MD When: 2 weeks. Please Follow Up With: Miles Macdonald MD When: 2 weeks. Please Follow Up With: Lucie Stevenson (device clinic) When: 2 weeks. Proposed Discharge Date: 06/03/19
--- NOTE | 2019-05-24 19:39 | PCM.DC.SUM ---
Discharge Date and Diagnosis - Problem List Patient Problems: Active and Suspected Problems (Last Updated 04/26/19 @ 09:07 by Marika Schrader) Debility (Acute) Atrial fibrillation with rapid ventricular response (Acute) Nausea and vomiting (Acute) Helicobacter pylori infection (Acute) Fecal impaction (Acute) Gout (Acute) Date of Admission: 05/06/19 Date of Discharge: 06/03/19 - Primary Discharge Diagnosis Active and Suspected Problems (Last Updated 04/26/19 @ 09:07 by Marika Schrader) Debility (Acute) Atrial fibrillation with rapid ventricular response (Acute) Nausea and vomiting (Acute) Helicobacter pylori infection (Acute) Fecal impaction (Acute) Gout (Acute) - Secondary Discharge Diagnosis Chronic Problems (Last Updated 04/26/19 @ 09:07 by Marika Schrader) Chronic diarrhea (Chronic) Chronic kidney disease (Chronic) Mitral valve prolapse (Chronic) Body mass index (BMI) 40.0-44.9, adult (Chronic) Hypertension (Chronic) GERD (gastroesophageal reflux disease) (Chronic) Edema (Chronic) Presence of permanent cardiac pacemaker (Chronic ~04/26/19) MICRA placed ;AVN ablation @ [facility] 04/26/19 Old myocardial infarction (Chronic) Nonrheumatic mitral (valve) insufficiency (Chronic) Nonrheumatic mitral (valve) prolapse (Chronic) Recurrent pancreatitis (Chronic) Hyperlipidemia (Chronic) Familial combined hyperlipidemia (Chronic) Morbid obesity with BMI of 40.0-44.9, adult (Chronic) Benign hypertension (Chronic) Hospital Course and Treatment Imaging Results: 05/12/19 10:23 Diet: 2 Gram Sodium Food consistency:: Regular Liquid Consistency:: Regular/Thin Is pt able to select menu?: Yes Clinical Impression(s) from Imaging Studies KUB X-Ray 05/18/19 08:18 IMPRESSION: Moderate amount of fecal material is seen throughout the colon. There has been no change since prior study. Electronically Signed: Wilman Louise, at 11:07 EDT , Service support , Operations: None Procedures: None Summary of Care Provided: The patient is a 73 year old Female with below past medical history hospitalized for atrial fibrillation with rapid ventricular response treated with micro implant pacer after AV ablation, complicated by H. Pylori infection, chronic intermittent nausea, vomiting, constipation, diarrhea, admitted to TCU with debility, here for rehabilitation, strengthening, prior to discharge home alone. Discharge home alone, [facility] PT/OT. Patient Problems: Active and Suspected Problems (Last Updated 04/26/19 @ 09:07 by Marika Schrader) Debility (Acute) Atrial fibrillation with rapid ventricular response (Acute) Nausea and vomiting (Acute) Helicobacter pylori infection (Acute) Fecal impaction (Acute) Gout (Acute) - Physical Exam Vitals/I&O's: Vital Signs Temp Pulse Resp BP Pulse Ox 98.1 F 79 16 153/75 H 96 05/24/19 14:48 05/24/19 10:00 05/24/19 14:48 05/24/19 14:48 05/24/19 14:48 Oxygen Delivery Method Room Air Weight: 104.78 kg Body Mass Index (BMI) 39.6 Intake and Output for Last 24 Hours 05/22/19 05/23/19 05/24/19 23:59 23:59 23:59 Intake Total 840 / 840 840 / 840 720 / 720 Output Total 7 / 7 Balance 840 / 840 833 / 833 720 / 720 Current Medications Acetaminophen (Tylenol) 1,000 mg PO Q6H PRN PRN PRN Reason: Pain Score 1-3/10 Last Admin: 05/19/19 21:01 Dose: 1,000 mg Documented by: [facility]) [facility] Amlodipine Besylate (Norvasc) 10 mg PO DAILY@0800 [facility] Last Admin: 05/24/19 08:05 Dose: 10 mg Documented by: Apixaban (Eliquis) 5 mg PO BID@0800,2000 [facility] Last Admin: 05/24/19 08:05 Dose: 5 mg Documented by: Bisacodyl (Dulcolax) 10 mg PO DAILY PRN PRN PRN Reason: Constipation Calamine/Phenol (Calmoseptine Ointment) 1 applic TOPICAL BID [facility]; Protocol Last Admin: 05/24/19 18:03 Dose: 1 applicatio Documented by: Nutritional Formula (Lactose Free) (Ensure Enlive) 120 ml PO 4X/DAY [facility] Last Admin: 05/24/19 18:01 Dose: Not Given Documented by: Nystatin (Mycostatin Powder) 1 applic TOPICAL BID [facility]; Protocol Last Admin: 05/24/19 18:03 Dose: 1 applicatio Documented by: Ondansetron HCl (Zofran Odt) 8 mg PO Q8H PRN PRN PRN Reason: NAUSEA Last Admin: 05/19/19 02:37 Dose: 8 mg Documented by: Oxycodone HCl (Oxyir) 5 mg PO Q4H PRN PRN PRN Reason: Pain Score 4-10/10 Last Admin: 05/19/19 17:44 Dose: 5 mg Documented by: Pantoprazole Sodium (Protonix) 20 mg PO BID@799,1999 [facility] Last Admin: 05/24/19 08:05 Dose: 20 mg Documented by: Polyethylene Glycol (Miralax) 17 gm PO DAILY@799 [facility] Last Admin: 05/24/19 08:06 Dose: 17 gm Documented by: Potassium Chloride (K-Dur) [facility] Last Admin: 05/24/19 18:01 Dose: 20 meq Documented by: Senna/Docusate Sodium (Senokot-S, Alla-Colace) 1 tablet PO BID@799,1999 [facility] Last Admin: 05/24/19 08:05 Dose: 1 tablet Documented by: Sodium Chloride () 10 - 40 ml IV UD PRN PRN Reason: SALINE FLUSH Last Admin: 05/20/19 21:24 Dose: 10 ml Documented by: Discharge Diet: No Restrictions Discharge Activity: Return to Normal Activity, May Shower, Use Walker Weight Bearing Status: Weight bearing as tolerated Call your doctor if you observe: Fever of 101 or Higher, Inability to urinate, Inability to have a bowel movement, Shortness of breath, Chest pain, Uncontrolled pain Home Medications: Medications to take at Discharge Apixaban [Eliquis] 5 mg PO BID 04/19/19 Acetaminophen [Tylenol] 1,000 mg PO Q6H PRN PRN tablet 05/24/19 Allopurinol [Zyloprim] 300 mg PO DAILYCM #30 tab 05/24/19 Amlodipine Besylate [Norvasc] 10 mg PO DAILY #30 tab 05/24/19 Menthol/Lanolin/Calamine/Znox [Calmoseptine Ointment] 1 applic TOPICAL BID tube 05/24/19 Nystatin Powder [Mycostatin Powder] 1 applic TOPICAL BID bottle 05/24/19 Pantoprazole Sodium [Protonix] 20 mg PO BID@00,1999 #60 tab 05/24/19 Potassium Chloride [K-Dur] 20 meq PO BIDCM #60 tab 05/24/19 Following Prescrptions Were Given to Patient: Potassium Chloride [K-Dur] 20 meq PO BIDCM #60 tab Transmission Status: Pending to [facility] Amlodipine Besylate [Norvasc] 10 mg PO DAILY #30 tab Transmission Status: Pending to [facility] Pantoprazole Sodium [Protonix] 20 mg PO BID@799,1999 #60 tab Transmission Status: Pending to [facility] Allopurinol [Zyloprim] 300 mg PO DAILYCM #30 tab Transmission Status: Pending to [facility] Primary Care Physician: Miles Reid MD [Primary Care Provider] - Please follow up with your Primary Care Physician in: 1 week. Please Follow Up With: MICRA (PACEMAKER) FOLLOW UP When: 2 weeks. Please Follow Up With: Chema Langston MD When: 2 weeks. Please Follow Up With: Miles Macdonald MD When: 2 weeks. Please Follow Up With: Lucie Stevenson (device clinic) When: 2 weeks. Disposition: Home with Home Health Minutes spent on discharge:: 35 Patient Condition:: Stable Medical Necessity - Tobacco Use Smoking Status: Never smoker Tobacco Use: Non-smoker Meaningful Use Info Meaningful Use Diagnoses (Choose all that apply): None applicable
[2019-05-25] MEDS: Menthol/Lanolin/Calamine/Znox 113 GM Tube 1 APPLIC TOPICAL ×2 (06:00→17:51)
[2019-05-25] MEDS: Nystatin Powder 15gm Bottle 1 APPLIC TOPICAL ×2 (06:00→17:50)
[2019-05-25] MEDS: Polyethylene Glycol 3350 17 GM PACKET PO (08:10)
[2019-05-25] MEDS: Pantoprazole Sodium 20 MG Tablet PO ×2 (08:10→20:24)
[2019-05-25] MEDS: amLODIPine 10 MG Tablet PO (08:10)
[2019-05-25] MEDS: APIXABAN 5 MG TABLET PO ×2 (08:10→20:24)
[2019-05-25 08:18] VITALS: BP 140/67; PULSE 80
[2019-05-25] MEDS: Senna/Docusate Sodium 1 Tablet PO ×2 (08:35→20:23)
[2019-05-25 14:29] VITALS: BP 147/68; PULSE 82; RESP 16; TEMP 36.7; O2SAT 98
[2019-05-25 20:28] VITALS: RESP 16
[2019-05-26] MEDS: Nystatin Powder 15gm Bottle 1 APPLIC TOPICAL ×2 (05:46→17:17)
[2019-05-26] MEDS: Menthol/Lanolin/Calamine/Znox 113 GM Tube 1 APPLIC TOPICAL ×2 (05:47→17:17)
[2019-05-26] MEDS: Senna/Docusate Sodium 1 Tablet PO ×2 (08:10→20:57)
[2019-05-26] MEDS: APIXABAN 5 MG TABLET PO ×2 (08:10→20:57)
[2019-05-26] MEDS: amLODIPine 10 MG Tablet PO (08:10)
[2019-05-26] MEDS: Pantoprazole Sodium 20 MG Tablet PO ×2 (08:10→20:57)
[2019-05-26] MEDS: Polyethylene Glycol 3350 17 GM PACKET PO (08:10)
[2019-05-26 14:24] VITALS: BP 84/64; PULSE 86; RESP 18; TEMP 36.8; O2SAT 98
[2019-05-27] MEDS: Nystatin Powder 15gm Bottle 1 APPLIC TOPICAL ×2 (06:25→17:30)
[2019-05-27] MEDS: Menthol/Lanolin/Calamine/Znox 113 GM Tube 1 APPLIC TOPICAL ×2 (06:25→17:30)
[2019-05-27] MEDS: Polyethylene Glycol 3350 17 GM PACKET PO (08:06)
[2019-05-27] MEDS: Pantoprazole Sodium 20 MG Tablet PO ×2 (08:06→20:24)
[2019-05-27] MEDS: amLODIPine 10 MG Tablet PO (08:06)
[2019-05-27] MEDS: APIXABAN 5 MG TABLET PO ×2 (08:06→20:24)
[2019-05-27] MEDS: Senna/Docusate Sodium 1 Tablet PO ×2 (08:06→20:24)
[2019-05-27] MEDS: Allopurinol 300 MG Tablet PO (08:06)
[2019-05-27 14:15] VITALS: BP 157/79; PULSE 86; RESP 16; TEMP 36.6; O2SAT 94
[2019-05-28] MEDS: Menthol/Lanolin/Calamine/Znox 113 GM Tube 1 APPLIC TOPICAL ×2 (05:30→16:48)
[2019-05-28] MEDS: Nystatin Powder 15gm Bottle 1 APPLIC TOPICAL ×2 (05:30→16:48)
[2019-05-28 06:19] LABS: Absolute Lymphocyte Count 2.11 X10^3/uL (0.83-4.51); Absolute Neutrophil Count 6.8 X10^3/uL (2.0-7.7); Basophil# 0.02 X10^3/uL; Basophil% 0.2 % (0-1); Eosinophil# 0.18 X10^3/uL; Eosinophils% 1.8 % (0-5); Hematocrit 40.2 % (37-47); Hemoglobin 12.6 g/dL (12.0-15.0); Lymphocyte # 2.11 X10^3/ul (4.0); Lymphocyte % 20.8 % (19-41); Mean Corp Hgb Conc 31.3 g/dL (32-36); Mean Corpuscular Hgb 29.2 pg (27.0-32.0); Mean Corpuscular Volume 93.1 fL (81-99); Mean Platelet Vol. 10.6 fl (6.2-12.0); Monocyte# 0.94 X10^3/uL; Monocyte% 9.3 % (0-10); NRBC Flagged by Analyzer 0 % (0-5); Neutrophil % 67.2 % (47-70); Platelet Count 256 K/mm3 (150-450); RBC Distribution Width CV 17.3 % (11.6-14.6); RBC Distribution Width SD 59.5 fl (35.1-43.9); Red Blood Count 4.32 M/mm3 (4.2-5.4); White Blood Count 10.1 K/mm3 (4.4-11.0)
[2019-05-28 06:32] LABS: Anion Gap 7 (5-15); BUN 14 mg/dL (7-18); BUN/Creat Ratio 13.7 RATIO (10-20); Calcium,Total 9.3 mg/dL (8.5-10.1); Chloride 105 mmol/L (98-107); Creatinine, Serum 1.02 mg/dL (0.55-1.02); EST Glomerular Filtration Rate 56 mL/min (>60); Est Glom Filt Rate - Afr Amer 68 mL/min (>60); Estimated Creatinine Clearance 39.42 ml/min; Glucose 130 mg/dL (74-106); Potassium 4.3 mmol/L (3.5-5.1); Sodium Level 137 mmol/L (136-145)
[2019-05-28] MEDS: APIXABAN 5 MG TABLET PO ×2 (07:52→22:05)
[2019-05-28] MEDS: Senna/Docusate Sodium 1 Tablet PO ×2 (07:53→22:05)
[2019-05-28] MEDS: Polyethylene Glycol 3350 17 GM PACKET PO (07:53)
[2019-05-28] MEDS: Pantoprazole Sodium 20 MG Tablet PO ×2 (07:53→22:05)
[2019-05-28] MEDS: amLODIPine 10 MG Tablet PO (07:53)
[2019-05-28] MEDS: Allopurinol 300 MG Tablet PO (07:54)
[2019-05-28 13:54] VITALS: BP 118/40; PULSE 113; RESP 18; TEMP 36.5; O2SAT 96
[2019-05-29] MEDS: Acetaminophen 500 MG Tablet 1000 MG PO ×2 (02:46→23:07)
[2019-05-29] MEDS: Nystatin Powder 15gm Bottle 1 APPLIC TOPICAL ×2 (06:26→18:08)
[2019-05-29] MEDS: Menthol/Lanolin/Calamine/Znox 113 GM Tube 1 APPLIC TOPICAL ×2 (06:26→18:08)
[2019-05-29] MEDS: Pantoprazole Sodium 20 MG Tablet PO ×2 (08:51→21:17)
[2019-05-29] MEDS: Polyethylene Glycol 3350 17 GM PACKET PO (08:51)
[2019-05-29] MEDS: APIXABAN 5 MG TABLET PO ×2 (08:51→21:18)
[2019-05-29] MEDS: Senna/Docusate Sodium 1 Tablet PO ×2 (08:52→21:17)
[2019-05-29] MEDS: Allopurinol 300 MG Tablet PO (08:52)
[2019-05-29] MEDS: amLODIPine 10 MG Tablet PO (08:53)
[2019-05-29 08:57] VITALS: BP 114/70; PULSE 85
[2019-05-29 10:00] VITALS: PULSE 80; RESP 18; O2SAT 98
[2019-05-29 14:21] VITALS: BP 135/68; PULSE 80; RESP 18; TEMP 36.2; O2SAT 98
[2019-05-30] MEDS: Menthol/Lanolin/Calamine/Znox 113 GM Tube 1 APPLIC TOPICAL ×2 (06:14→17:48)
[2019-05-30] MEDS: Nystatin Powder 15gm Bottle 1 APPLIC TOPICAL (06:15)
[2019-05-30] MEDS: Pantoprazole Sodium 20 MG Tablet PO ×2 (08:15→20:16)
[2019-05-30] MEDS: amLODIPine 10 MG Tablet PO (08:15)
[2019-05-30] MEDS: APIXABAN 5 MG TABLET PO ×2 (08:15→20:16)
[2019-05-30] MEDS: Polyethylene Glycol 3350 17 GM PACKET PO (08:15)
[2019-05-30] MEDS: Allopurinol 300 MG Tablet PO (08:16)
[2019-05-30 08:22] VITALS: BP 132/70; PULSE 80
[2019-05-30 14:55] VITALS: BP 135/65; PULSE 80; RESP 18; TEMP 36.6; O2SAT 98
[2019-05-30] MEDS: Senna/Docusate Sodium 1 Tablet PO (20:16)
[2019-05-31] MEDS: Acetaminophen 500 MG Tablet 1000 MG PO ×2 (00:52→21:29)
[2019-05-31] MEDS: Nystatin Powder 15gm Bottle 1 APPLIC TOPICAL ×2 (06:17→17:22)
[2019-05-31] MEDS: Menthol/Lanolin/Calamine/Znox 113 GM Tube 1 APPLIC TOPICAL ×2 (06:17→17:23)
[2019-05-31] MEDS: Senna/Docusate Sodium 1 Tablet PO ×2 (07:48→21:26)
[2019-05-31] MEDS: Allopurinol 300 MG Tablet PO (07:48)
[2019-05-31] MEDS: Polyethylene Glycol 3350 17 GM PACKET PO (07:49)
[2019-05-31] MEDS: amLODIPine 10 MG Tablet PO (07:49)
[2019-05-31] MEDS: APIXABAN 5 MG TABLET PO ×2 (07:49→21:26)
[2019-05-31] MEDS: Pantoprazole Sodium 20 MG Tablet PO ×2 (07:49→21:26)
[2019-05-31 09:40] VITALS: PULSE 90; RESP 16; O2SAT 98
[2019-05-31 14:15] VITALS: BP 131/71; PULSE 83; RESP 16; TEMP 36.4; O2SAT 97
--- NOTE | 2019-05-31 15:02 | NURSING ---
Sister BJ called in requesting pt receives a shower before discharge, this nurse talked with pt and she stated she would like one the night before she goes home, sometime after dinner
[2019-06-01] MEDS: Nystatin Powder 15gm Bottle 1 APPLIC TOPICAL ×2 (05:02→17:48)
[2019-06-01] MEDS: Menthol/Lanolin/Calamine/Znox 113 GM Tube 1 APPLIC TOPICAL ×2 (05:03→17:48)
[2019-06-01] MEDS: Senna/Docusate Sodium 1 Tablet PO ×2 (08:42→20:59)
[2019-06-01] MEDS: amLODIPine 10 MG Tablet PO (08:42)
[2019-06-01] MEDS: APIXABAN 5 MG TABLET PO ×2 (08:42→20:59)
[2019-06-01] MEDS: Pantoprazole Sodium 20 MG Tablet PO ×2 (08:42→20:59)
[2019-06-01] MEDS: Polyethylene Glycol 3350 17 GM PACKET PO (08:42)
[2019-06-01] MEDS: Allopurinol 300 MG Tablet PO (08:43)
[2019-06-01 13:46] VITALS: BP 135/78; PULSE 81; RESP 16; TEMP 36.5; O2SAT 96
--- NOTE | 2019-06-01 16:31 | CHAPLAIN ---
Type of Pastoral Visit ___ Initial Visit _x__ Follow-up Visit ___ On-call Visit ___ General Patient Visit ___ Spiritual Assessment ___ Family Conference ___ Bereavement ___ Rapid Response ___ Code Blue ___ Other (describe below) Pastoral Care Referral From _x__ Patient ___ Family ___ Nurse ___ Physician ___ Paid Intern ___ Irrigation Service Technician ___ Other (describe below) Sacrament/Intervention _x__ Active listening ___ Anointing ___ Sabianist ___ Bereavement ___ Communion _x__ Kristan exploration ___ _x__ Life review _x__ Prayer ___ Reconciliation ___ Sacrament of Sick _x__ Supportive presence ___ Wedding ___ Other (describe below) Pastoral Comments
[2019-06-01] MEDS: Acetaminophen 500 MG Tablet 1000 MG PO (20:58)
[2019-06-02] MEDS: Acetaminophen 500 MG Tablet 1000 MG PO (02:58)
[2019-06-02] MEDS: Menthol/Lanolin/Calamine/Znox 113 GM Tube 1 APPLIC TOPICAL ×2 (03:00→17:39)
[2019-06-02] MEDS: Nystatin Powder 15gm Bottle 1 APPLIC TOPICAL ×2 (03:01→17:39)
--- NOTE | 2019-06-02 08:14 | PCA ---
Pt i will go the bathroom independently, after having a bowel movement pt will ring for staff to dependently wipe her.
[2019-06-02] MEDS: Senna/Docusate Sodium 1 Tablet PO ×2 (08:32→20:01)
[2019-06-02] MEDS: Polyethylene Glycol 3350 17 GM PACKET PO (08:32)
[2019-06-02] MEDS: APIXABAN 5 MG TABLET PO ×2 (08:32→20:01)
[2019-06-02] MEDS: Allopurinol 300 MG Tablet PO (08:32)
[2019-06-02] MEDS: Pantoprazole Sodium 20 MG Tablet PO ×2 (08:33→20:01)
[2019-06-02] MEDS: amLODIPine 10 MG Tablet PO (08:33)
[2019-06-02 09:00] VITALS: BP 130/64; PULSE 81
[2019-06-02 09:50] VITALS: PULSE 87; RESP 18; O2SAT 98
[2019-06-02 14:18] VITALS: BP 136/72; PULSE 80; RESP 20; TEMP 37.2; O2SAT 98
[2019-06-03] MEDS: Acetaminophen 500 MG Tablet 1000 MG PO (01:52)
[2019-06-03] MEDS: Menthol/Lanolin/Calamine/Znox 113 GM Tube 1 APPLIC TOPICAL (06:53)
[2019-06-03] MEDS: Nystatin Powder 15gm Bottle 1 APPLIC TOPICAL (06:54)
[2019-06-03] MEDS: APIXABAN 5 MG TABLET PO (08:41)
[2019-06-03] MEDS: Pantoprazole Sodium 20 MG Tablet PO (08:42)
[2019-06-03] MEDS: amLODIPine 10 MG Tablet PO (08:42)
[2019-06-03] MEDS: Allopurinol 300 MG Tablet PO (08:42)
[2019-06-03] MEDS: Senna/Docusate Sodium 1 Tablet PO (08:42)
[2019-06-03 08:50] VITALS: PULSE 81; RESP 18; O2SAT 96
[2019-06-03 09:56] VITALS: BP 139/72; PULSE 81; RESP 18; TEMP 36.8; O2SAT 96
--- NOTE | 2019-06-03 15:11 | CASEMGMT ---
Social Work Reviewed and agreed with social work qa intern documentation on this date. Yulisa Hansen, WET CLEANER MACHINE GIS ANALYST DEVELOPER
--- NOTE | 2019-06-04 13:17 | CASEMGMT ---
Social Work Reviewed and agreed with social work consultant internship documentation on this date. Yulisa Hansen, INVESTIGATIVE ANALYST COOLER OPERATOR
== END 2019-06-03 11:40 | disposition home health service (06) | DRG 950 ==
PROVIDERS: Admitting Provider Family Medicine Geriatric Medicine; PCP Family Medicine; Visit Provider Family Medicine Geriatric Medicine
DX: Z48.812 Encounter for surgical aftercare following surgery on the circulatory system (principal); I48.0 Paroxysmal atrial fibrillation; Z23 Encounter for immunization; B96.81 Helicobacter pylori [H. pylori] as the cause of diseases classified elsewhere; N18.9 Chronic kidney disease, unspecified; I12.9 Hypertensive chronic kidney disease with stage 1 through stage 4 chronic kidney disease, or unspecified chronic kidney disease; K21.9 Gastro-esophageal reflux disease without esophagitis; M10.9 Gout, unspecified; Z95.0 Presence of cardiac pacemaker; I25.2 Old myocardial infarction; E78.49 Other hyperlipidemia; M79.7 Fibromyalgia; M06.9 Rheumatoid arthritis, unspecified; M48.061 Spinal stenosis, lumbar region without neurogenic claudication; I25.10 Atherosclerotic heart disease of native coronary artery without angina pectoris
CPT/HCPCS: 36415; 74018; 80048; 81001; 83013; 85025; 87086; 97110; 97116; 97162; 97166; 97530; 97535; 97802; G0009; J7030; 90670; A4216

== ENCOUNTER 2019-06-22 16:00 | Outpatient (RCR) | payer MEDICARE, OTHER, SELFPAY ==
[2019-04-25 01:10] VITALS: BMI 41.8
[2019-06-17 10:58] VITALS: BMI 38.3
[2019-06-22 16:42] LABS: Color, Urine Yellow (Yellow); Glucose, Dipstick Normal (Normal); Ketone-Dipstick Negative (Negative); Leukocyte Esterase-Dipstick 25 /ul (Negative); Nitrite-Dipstick Negative (Negative); Occult Blood-Urine Negative /ul (Negative); Protein-Dipstick 15 mg/dl (Negative); Specific Gravity, Urine 1.015 (1.002-1.030); Urine Bilirubin Dipstick Negative (Negative); Urine Clarity Sl. Cloudy (Clear); Urine Urobilinogen Normal (Normal)
[2019-06-22 16:47] LABS: Anion Gap 6 (5-15); BUN 14 mg/dL (7-18); BUN/Creat Ratio 15.7 RATIO (10-20); Calcium,Total 9.2 mg/dL (8.5-10.1); Chloride 109 mmol/L (98-107); Creatinine, Serum 0.89 mg/dL (0.55-1.02); EST Glomerular Filtration Rate 66 mL/min (>60); Est Glom Filt Rate - Afr Amer 79 mL/min (>60); Glucose 95 mg/dL (74-106); Potassium 4.4 mmol/L (3.5-5.1); Sodium Level 140 mmol/L (136-145)
== END 2019-06-24 18:00 | disposition home or self-care (01) ==
LOC: HHLAB 16:00
PROVIDERS: PCP Family Medicine; Referring Provider Internal Medicine Cardiovascular Disease; Visit Provider Internal Medicine Cardiovascular Disease
DX: N39.0 Urinary tract infection, site not specified (principal); A04.8 Other specified bacterial intestinal infections; Z48.812 Encounter for surgical aftercare following surgery on the circulatory system; I48.0 Paroxysmal atrial fibrillation; N18.9 Chronic kidney disease, unspecified
CPT/HCPCS: 80048; 81002; 87086; 87088

== ENCOUNTER → 2019-08-05 10:18 | Outpatient (CLI) | payer MEDICARE, OTHER, SELFPAY ==
[2019-07-23 10:55] VITALS: BMI 38.5
[2019-08-05 12:46] LABS: Anion Gap 9 (5-15); BUN 22 mg/dL (7-18); BUN/Creat Ratio 18.3 RATIO (10-20); Calcium,Total 9.7 mg/dL (8.5-10.1); Chloride 97 mmol/L (98-107); EST Glomerular Filtration Rate 47 mL/min (>60); Est Glom Filt Rate - Afr Amer 56 mL/min (>60); Glucose 165 mg/dL (74-106); Magnesium 1.9 mg/dL (1.6-2.6); Potassium 2.8 mmol/L (3.5-5.1); Sodium Level 136 mmol/L (136-145)
== END ==
PROVIDERS: PCP Family Medicine; Referring Provider Internal Medicine Cardiovascular Disease; Visit Provider Internal Medicine Cardiovascular Disease
DX: I48.91 Unspecified atrial fibrillation (principal); I34.1 Nonrheumatic mitral (valve) prolapse; I34.0 Nonrheumatic mitral (valve) insufficiency; E78.5 Hyperlipidemia, unspecified; I10 Essential (primary) hypertension; E66.01 Morbid (severe) obesity due to excess calories; R60.9 Edema, unspecified; R30.0 Dysuria; Z68.41 Body mass index [BMI] 40.0-44.9, adult; Z95.0 Presence of cardiac pacemaker; Z86.79 Personal history of other diseases of the circulatory system; Z98.890 Other specified postprocedural states
CPT/HCPCS: 36415; 80048; 83735; 87086; 87088

== ENCOUNTER → 2019-08-06 | Outpatient (CLI) | payer MEDICARE, OTHER, SELFPAY ==
[2019-07-23 10:55] VITALS: BMI 38.5
== END | disposition home or self-care (01) ==
LOC: MTLAB 07:52
PROVIDERS: PCP Family Medicine; Referring Provider Nurse Practitioner Family; Visit Provider Nurse Practitioner Family
DX: E87.6 Hypokalemia (principal)
CPT/HCPCS: 36415; 84132

== ENCOUNTER → 2019-08-11 | Outpatient (CLI) | payer MEDICARE, OTHER, SELFPAY ==
[2019-07-23 10:55] VITALS: BMI 38.5
[2019-08-11 10:22] LABS: Potassium 4.4 mmol/L (3.5-5.1)
== END | disposition home or self-care (01) ==
LOC: MTLAB 08:53
PROVIDERS: PCP Family Medicine; Referring Provider Nurse Practitioner Family; Visit Provider Nurse Practitioner Family
DX: E87.6 Hypokalemia (principal)
CPT/HCPCS: 36415; 84132

== ENCOUNTER 2019-09-10 11:53 | Emergency (ER) | payer MEDICARE, OTHER, SELFPAY ==
[2019-07-23 10:55] VITALS: BMI 38.5
[2019-09-10 11:55] VITALS: BP 153/78; PULSE 78; RESP 12; TEMP 36.8; O2SAT 96; BMI 38.5
--- NOTE | 2019-09-10 12:07 | CT_ITS ---
STUDY: CT BRAIN WITHOUT CONTRAST REASON FOR EXAM: Female, 73 years old. CEPHALGIA RADIATION DOSAGE (If Supplied By Facility): CTDIvol = ( 44.99 ) mGy, DLP = ( 846.73 ) mGycm TECHNIQUE: Transaxial CT imaging of the brain was performed without administration of intravenous contrast material. Individualized dose optimization techniques were used for this CT. COMPARISON: Comparison is made with prior study date November 25, 2018. FINDINGS: Normal soft tissue structures. Normal calvarium. There is mild cerebral atrophy with widening of the extra-axial spaces and ventricular dilatation. There are areas of decreased attenuation within the white matter tracts of the supratentorial brain, consistent with microvascular disease changes. Normal basal ganglia and thalami. Normal brainstem. Normal cerebellum. There is no intracranial hemorrhage. There are no findings of an acute ischemic infarction. Atherosclerotic calcification of the cavernous portions of the internal carotid arteries bilaterally. Minimal mucosal thickening of the lateral wall of the left maxillary sinus. CT/Brain/Head without Contrast IMPRESSION: Chronic involutional changes of the brain. Electronically Signed: Wilman Louise, at 12:53 EDT , Service support ,
--- NOTE | 2019-09-10 12:08 | RAD_ITS ---
STUDY: X-RAY CHEST REASON FOR EXAM: Female, 73 years old. DYSPNEA TECHNIQUE: Single AP portable view of the chest. COMPARISON: Comparison is made with prior study of April 03 2019. FINDINGS: EKG electrodes are seen. Stable mild increased linear markings in the lingular segment of the left upper lobe suggestive of scarring. There is no demonstrated pleural abnormality. There is mild cardiac enlargement. A loop recorder device is seen overlying the left heart. Normal mediastinum and uche. Normal visualized pulmonary arteries. There is atherosclerotic calcification of the aortic arch with tortuosity. There are diffuse degenerative changes of the visualized thoracic spine. Normal visualized ribs, clavicles, and shoulders. There is no demonstrated abnormality of the visualized soft tissue structures of the upper abdomen. RAD/Chest 1 View (Portable) IMPRESSION: Stable mild increased linear markings in the lingular segment of the left upper lobe suggestive of scarring. Cardiomegaly Electronically Signed: Wilman Louise, at 12:46 EDT , Service support ,
--- NOTE | 2019-09-10 12:08 | EKG12_ITS ---
Test Reason : GENERAL ILLNESS Blood Pressure : / mmHG Vent. Rate : 074 BPM Atrial Rate : 312 BPM P-R Int : 000 ms QRS Dur : 146 ms QT Int : 476 ms P-R-T Axes : 000 -62 111 degrees QTc Int : 528 ms Ventricular-paced rhythm Abnormal ECG Confirmed by RON LOCKHART, MERCEDES ([id number]), continuity editor LORI ROSSI ([id number]) on 09/14/2019 9:20:14 AM Referred By: SHUKRI Confirmed By:MERCEDES VELASQUEZ MD
--- NOTE | 2019-09-10 12:09 | ED.DCSUM_ITS ---
- ER Visit Summary Date of Service: 09/10/19 Chief Complaint: [Not feeling well] History of Present Illness: The patient is a 73 F [presents to the emergency department from home via EMS with complaint of not feeling well for the last several days. Patient lives alone but has a caregiver that helps her out. Patient states that she was admitted to the hospital from March of this year to May of this year in the transitional care unit. Patient states that she has nausea intermittently and vomited yesterday around noon and again this morning. She denies any chest pain. Patient states that she just does not feel well and feels somewhat short of breath. She has had a headache that she has had for quite a while. She thinks she is had a headache for several weeks. But has not had any falls or head injuries. She is anticoagulated with Xarelto currently. She denies chest pain. She denies abdominal pain. She is had no fevers. She denies urinary symptoms. She has history of coronary artery disease, GERD, hypertension, high cholesterol, A. fib, chronic kidney disease, and pancreatitis. Past surgical history includes appendectomy, cholecystectomy, pacemaker, total knee replacement on the left, and lumbar fusion. Patient has had a cardiac ablation.] I spoke with patient's sister who is from out of state and had some concerns about the patient and she seemed to be somewhat confused yesterday and as well again today. Last time patient behaved this way she had a urinary tract infection and was only diagnosed on culture as the urinalysis itself apparently had been normal. Physical Examination: [HEENT-PERRLA, EOMI. Cranial nerves II through XII grossly intact. TMs clear. Mucous membranes moist. No adenopathy. Cardiovascular-regular rate and rhythm without murmur or ectopy Lungs-clear to auscultation, chest wall stable without crepitus or subcu emphysema Abdomen-normoactive bowel sounds, soft, nontender, no rebound or rigidity, no peritoneal signs. Extremities-intact ?4, normal range of motion, normal pulses, atraumatic] Test Results: [EKG obtained on arrival showed a paced rhythm with a ventricular rate of 74 bpm. CBC with differential, 12.6, hemoglobin 12.7, hematocrit 41, placed 235. Chemistries unremarkable. Troponin was less than 0.015. Urinalysis was normal. CT scan of the brain without contrast showed chronic involutional changes. Chest x-ray showed left upper lobe scarring otherwise nothing acute.] Emergency Department Course and Treatment: [Patient refused any medications in department. She had an IV line established on arrival.] Discussed with patient and her sister possible admission for symptom treatment however patient states that there is coronavirus in the hospital and she does not want to be admitted. Treatment Plan: [As was discussed with patient's primary care physician Dr. Miles Reid who will see patient in the office next week. I will write her for Zofran for nausea. I will send off a urine culture. I also discussed case with patient's sister.] Disposition: [Discharged home in stable condition.] Impression: [Nausea and vomiting-etiology uncertain Confusion-acute on chronic] This note was generated with [employer] dictation software. It may contain incorrect words, spelling, and punctuation that were not noted in review of the chart prior to signing ED Disposition - Plan for ED Patient: Referrals: Miles Reid MD [Primary Care Provider] -
[2019-09-10 12:24] LABS: Absolute Lymphocyte Count 0.69 X10^3/uL (0.83-4.51); Absolute Neutrophil Count 11.2 X10^3/uL (2.0-7.7); Basophil# 0.01 X10^3/uL; Basophil% 0.1 % (0-1); Eosinophil# 0.01 X10^3/uL; Eosinophils% 0.1 % (0-5); Hematocrit 40.8 % (37-47); Hemoglobin 12.7 g/dL (12.0-15.0); Lymphocyte # 0.69 X10^3/ul (4.0); Lymphocyte % 5.5 % (19-41); Mean Corp Hgb Conc 31.1 g/dL (32-36); Mean Corpuscular Hgb 27.3 pg (27.0-32.0); Mean Corpuscular Volume 87.7 fL (81-99); Mean Platelet Vol. 10.8 fl (6.2-12.0); Monocyte# 0.66 X10^3/uL; Monocyte% 5.2 % (0-10); NRBC Flagged by Analyzer 0 % (0-5); Neutrophil # 11.15 X10^3/uL (2.7-7.7); Neutrophil % 88.6 % (47-70); Platelet Count 235 K/mm3 (150-450); RBC Distribution Width CV 16.4 % (11.6-14.6); RBC Distribution Width SD 51.3 fl (35.1-43.9); Red Blood Count 4.65 M/mm3 (4.2-5.4); White Blood Count 12.6 K/mm3 (4.4-11.0)
[2019-09-10] MEDS: 0.9% Normal Saline 1,000 ML 150 ML IV (12:29)
[2019-09-10 12:39] LABS: Anion Gap 5 (5-15); BUN 20 mg/dL (7-18); BUN/Creat Ratio 18.2 RATIO (10-20); Calcium,Total 9.8 mg/dL (8.5-10.1); Chloride 100 mmol/L (98-107); EST Glomerular Filtration Rate 51 mL/min (>60); Est Glom Filt Rate - Afr Amer 62 mL/min (>60); Estimated Creatinine Clearance 36.55 ml/min; Glucose 144 mg/dL (74-106); Lipase 122 U/L (73-393); Potassium 3.4 mmol/L (3.5-5.1); Sodium Level 135 mmol/L (136-145)
[2019-09-10 13:53] LABS: Bacteria 0 SEEN /hpf (None Seen); Mucous, Urine 0 SEEN /hpf (<or=2+); Red Blood Cells-Urine 0 SEEN /hpf (0-5); Squamous Epithelial Cells - UA 0 SEEN /hpf (5-10); White Blood Cells 0 SEEN /hpf (0-5)
[2019-09-10 14:02] LABS: Color, Urine Straw (Yellow); Glucose, Dipstick Normal (Normal); Ketone-Dipstick Negative (Negative); Leukocyte Esterase-Dipstick Negative /ul (Negative); Nitrite-Dipstick Negative (Negative); Occult Blood-Urine Negative /ul (Negative); Protein-Dipstick Negative (Negative); Urine Bilirubin Dipstick Negative (Negative); Urine Clarity Clear (Clear); Urine Urobilinogen Normal (Normal)
[2019-09-10 14:58] VITALS: BP 165/99; PULSE 79; RESP 419; O2SAT 97
--- NOTE | 2019-09-10 14:59 | ED.DEP ---
ED Disposition - Plan for ED Patient: Instructions: ED Nausea Vomiting Adult, ED Confusion Prescriptions: Ondansetron [Zofran Odt] 4 mg PO Q8H PRN PRN #10 tab PRN Reason: Nausea Transmission Status: Pending to [id number] Referrals: Miles Reid MD [Primary Care Provider] - 3-5 Days
[2019-09-10] MEDS: Ondansetron 4 MG/2 ML Vial IV (15:20)
== END 2019-09-10 15:40 | disposition home or self-care (01) ==
LOC: ED 12:32
PROVIDERS: Emergency Provider Emergency Medicine; PCP Family Medicine
DX: R41.0 Disorientation, unspecified (principal); R11.2 Nausea with vomiting, unspecified; Z79.02 Long term (current) use of antithrombotics/antiplatelets; I48.91 Unspecified atrial fibrillation; E78.00 Pure hypercholesterolemia, unspecified; K21.9 Gastro-esophageal reflux disease without esophagitis; I25.10 Atherosclerotic heart disease of native coronary artery without angina pectoris; I12.9 Hypertensive chronic kidney disease with stage 1 through stage 4 chronic kidney disease, or unspecified chronic kidney disease; N18.9 Chronic kidney disease, unspecified
CPT/HCPCS: 70450; 71045; 80048; 81001; 83690; 84484; 85025; 87086; 93005; 96361; 96374; 99285; J7030; A4216; J2405

== ENCOUNTER 2019-09-11 17:03 | Inpatient (IN) | payer MEDICARE, OTHER, SELFPAY ==
[2019-09-10 11:55] VITALS: BMI 38.5
[2019-09-11 17:06] VITALS: BP 159/95; PULSE 78; RESP 16; TEMP 36.6; O2SAT 95; BMI 36.3
--- NOTE | 2019-09-11 17:28 | CT_ITS ---
STUDY: CT BRAIN WITHOUT CONTRAST REASON FOR EXAM: Female, 73 years old. HYPERTENSIVE, BOLAND, SEEN YESTERDAY FOR THE SAME HAD CT BRAIN, HX A-FIB, CKD, DE, PACER RADIATION DOSAGE (If Supplied By Facility): CTDIvol = ( 44.99 ) mGy, DLP = ( 812.98 ) mGycm TECHNIQUE: Transaxial CT imaging of the brain was performed without administration of intravenous contrast material. Individualized dose optimization techniques were used for this CT. COMPARISON: Previous recent study of 09/10/2019 FINDINGS: Normal soft tissue structures. Normal calvarium. There is mild cerebral atrophy with widening of the extra-axial spaces and ventricular dilatation. There are areas of decreased attenuation within the white matter tracts of the supratentorial brain, consistent with microvascular disease changes. Normal basal ganglia and thalami. Normal brainstem. Normal cerebellum. There is no intracranial hemorrhage. There are no findings of an acute ischemic infarction. There is minimal mucosal thickening of the right maxillary sinus. CT/Brain/Head without Contrast IMPRESSION: Chronic involutional changes of the brain. Findings are similar to the previous day''s study. Electronically Signed: Celso Ayala MD at 18:21 EDT , Service support ,
--- NOTE | 2019-09-11 17:29 | EKG12_ITS ---
Test Reason : HYPERTENSION Blood Pressure : / mmHG Vent. Rate : 075 BPM Atrial Rate : 300 BPM P-R Int : 000 ms QRS Dur : 124 ms QT Int : 436 ms P-R-T Axes : 053 -61 104 degrees QTc Int : 486 ms Ventricular-paced rhythm Abnormal ECG Confirmed by MERCEDES VELASQUEZ MD ([id number]), newspaper editor managing LORI ROSSI ([id number]) on 09/14/2019 9:26:32 AM Referred By: MONIKA Confirmed By:MERCEDES VELASQUEZ MD
--- NOTE | 2019-09-11 17:31 | ED.DCSUM_ITS ---
History of Present Illness Chief Complaint: Hypertension Informant: Patient, Family, Friend Onset: Days Narrative: Patient presents via a friend for confusion and high blood pressure. Patient was seen in the ER last night as well. I spoke with the patient's power of at [facility] for healthcare on the phone as she lives out of state. They are concerned that the patient is having confusion and not behaving her normal self. This is been ongoing for several days. She is been complaining of a headache for 3 or 4 days. Per family patient took Percocet for her headache yesterday. Today she was trying to change the batteries in her blood pressure cuff machine and could not figure out how to fit the batteries in. She would make statements such as wanting her friend to come over to go get sandwiches and then forget why her friend had come over. - Past Medical History (1) Gout Status: Chronic (2) Helicobacter pylori infection Status: Chronic (3) Paroxysmal atrial fibrillation Status: Chronic (4) Benign hypertension Status: Chronic (5) Chronic kidney disease Status: Chronic (6) GERD (gastroesophageal reflux disease) Status: Chronic (7) Hyperlipidemia Status: Chronic (8) Hypertension Status: Chronic (9) Mitral valve prolapse Status: Chronic Past Medical History - Allergies and Home Meds Allergies/Adverse Reactions: Allergies Penicillins Allergy (Verified 09/11/19 17:06) Hives atorvastatin [From Lipitor] Adverse Reaction (Severe, Verified 09/11/19 17:06) Elevated LFT Primary Care Physician: Miles Reid MD [Primary Care Provider] - Prior records reviewed: Yes Surgical History: appendectomy, cataract, cholecystectomy, total knee arthroplasty - left, - - Foot surgery, carpal tunnel surgery, ERCP, lumbar spine surgery, RF ablation, micro implant pacer. Lives: Alone Smoking Status: Never smoker - Family History Maternal Family History: Family History (Last Reviewed 07/23/19 @ 11:06 by Marika Schrader) Sister Hypertension Other Arthritis Cancer Diabetes Family History: Reports: Renal Disease - age 70 Paternal Family History: Family History (Last Reviewed 07/23/19 @ 11:06 by Marika Schrader) Sister Hypertension Other Arthritis Cancer Diabetes Family History: Reports: - - age 45 cirrhosis Review of Systems General: Denies: Chills, Fever Eyes: Denies: Visual changes - bilaterally ENT: Denies: Bilateral ear pain Cardiovascular: Denies: Chest pain Respiratory: Denies: Dyspnea, Cough Gastrointestinal: Denies: Abdominal pain, Nausea, Vomiting, Diarrhea Genitourinary: Denies: Dysuria Musculoskeletal: Denies: Swelling, Extremity Pain Skin: Denies: Rash Neurological: Reports: Headache Hematologic: Denies: Easy bruising, Easy bleeding Allergy: Denies: Uticaria Physical Exam Vital Signs/Narrative: Vital Signs Temp Pulse Resp BP Pulse Ox 09/11/19 17:06 97.8 F 78 16 159/95 H 95 Inital Vital Signs reviewed: Yes General: Well nourished, Well developed Head: Normocephalic ENT: Moist mucous membranes Neck: Supple Cardiovascular: Regular rate, Regular rhythm Respiratory: No distress, CTA bilaterally Abdomen: Soft, Nontender, Hypoactive bowel sounds Extremities: Nontender, Edema - 1+ bilateral lower extremity edema, symmetric Skin: Normal color Neurological: Alert, Oriented x3 Psychological: Normal affect Diagnostic/Tx/Re-eval Impressions Brain CT 09/11/19 17:28 IMPRESSION: Chronic involutional changes of the brain. Findings are similar to the previous day''s study. Electronically Signed: Celso Ayala MD at 18:21 EDT , Service support , 09/11/19 17:28 Brain/Head without Contrast [CT] Stat Laboratory Results 09/11/19 09/11/19 17:44 17:44 WBC 10.6 RBC 4.45 Hgb 12.1 Hct 39.0 MCV 87.6 MCH 27.2 MCHC 31.0 L RDW Std Deviation 51.4 H RDW Coeff of Patel 16.1 H Plt Count 241 MPV 10.2 Immature Gran % (Auto) 0.400 Neut % (Auto) 79.6 H Lymph % (Auto) 11.0 L [place] % (Auto) 8.3 Eos % (Auto) 0.6 Baso % (Auto) 0.1 Absolute Neuts (auto) 8.4 H Absolute Lymphs (auto) 1.16 Nucleated RBC % 0 Sodium 136 Potassium 3.6 Chloride 102 Carbon Dioxide 30.0 Anion Gap 4 L BUN 22 H Creatinine 1.12 H Estim Creat Clear Calc 35.90 Est GFR (MDRD) Af Amer 61 Est GFR (MDRD) Non-Af 50 L BUN/Creatinine Ratio 19.6 Glucose 118 H Calcium 9.3 Total Bilirubin 0.60 AST 22 ALT 19 Alkaline Phosphatase 163 H Troponin I < 0.015 Total Protein 7.1 Albumin 3.3 Globulin 3.8 Albumin/Globulin Ratio 0.9 - EKG Initial EKG Interpretation: - - Paced at 75. No acute ischemia. - Medical Decision Making Patient was observed on criminal investigator customs throughout her ED stay. No significant abnormalities noted. She remains mildly hypertensive here. I did speak with friends and family who are very concerned about her. Patient did agree to observation overnight. We will continue to follow up the urine culture that was obtained yesterday. ED Disposition - Plan for ED Patient: Disposition: Acute Care Hospital [facility] Diagnosis: Confusion Referrals: Miles Reid MD [Primary Care Provider] -
[2019-09-11 17:33] VITALS: BP 157/89; PULSE 80; RESP 14; O2SAT 97
[2019-09-11 17:54] LABS: Absolute Lymphocyte Count 1.16 X10^3/uL (0.83-4.51); Absolute Neutrophil Count 8.4 X10^3/uL (2.0-7.7); Basophil# 0.01 X10^3/uL; Basophil% 0.1 % (0-1); Eosinophil# 0.06 X10^3/uL; Eosinophils% 0.6 % (0-5); Hemoglobin 12.1 g/dL (12.0-15.0); Lymphocyte # 1.16 X10^3/ul (4.0); Mean Corpuscular Hgb 27.2 pg (27.0-32.0); Mean Corpuscular Volume 87.6 fL (81-99); Mean Platelet Vol. 10.2 fl (6.2-12.0); Monocyte# 0.88 X10^3/uL; Monocyte% 8.3 % (0-10); NRBC Flagged by Analyzer 0 % (0-5); Neutrophil % 79.6 % (47-70); Platelet Count 241 K/mm3 (150-450); RBC Distribution Width CV 16.1 % (11.6-14.6); RBC Distribution Width SD 51.4 fl (35.1-43.9); Red Blood Count 4.45 M/mm3 (4.2-5.4); White Blood Count 10.6 K/mm3 (4.4-11.0)
[2019-09-11 18:11] LABS: ALB/GLOB Ratio 0.9 RATIO (0.9-2.4); AST(SGOT) 22 U/L (15-37); Alanine Aminotransfer ALT/SGPT 19 U/L (13-56); Albumin, Serum 3.3 g/dL (3.2-5.0); Alkaline Phosphatase 163 U/L (45-117); Anion Gap 4 (5-15); BUN 22 mg/dL (7-18); BUN/Creat Ratio 19.6 RATIO (10-20); Calcium,Total 9.3 mg/dL (8.5-10.1); Chloride 102 mmol/L (98-107); Creatinine, Serum 1.12 mg/dL (0.55-1.02); EST Glomerular Filtration Rate 50 mL/min (>60); Est Glom Filt Rate - Afr Amer 61 mL/min (>60); Globulin 3.8 g/dL (2.2-4.2); Glucose 118 mg/dL (74-106); Potassium 3.6 mmol/L (3.5-5.1); Protein, Total 7.1 g/dL (6.4-8.2); Sodium Level 136 mmol/L (136-145)
[2019-09-11] MEDS: 0.9% Normal Saline 1,000 ML 150 ML IV (18:18)
[2019-09-11 18:28] VITALS: BP 152/83; PULSE 74; RESP 15; O2SAT 96
[2019-09-11 18:59] LABS: Mucous, Urine 0 SEEN /hpf (<or=2+)
[2019-09-11 19:02] LABS: Color, Urine Yellow (Yellow); Glucose, Dipstick Normal (Normal); Ketone-Dipstick Negative (Negative); Leukocyte Esterase-Dipstick 25 /ul (Negative); Nitrite-Dipstick Negative (Negative); Occult Blood-Urine 50 /ul (Negative); Protein-Dipstick 30 mg/dl (Negative); Urine Bilirubin Dipstick Negative (Negative); Urine Clarity Sl. Cloudy (Clear); Urine Urobilinogen 1 mg/dl (Normal)
[2019-09-11 19:10] LABS: Red Blood Cells-Urine 0-5 SEEN /hpf (0-5); Squamous Epithelial Cells - UA 10-25 SEEN /hpf (5-10)
[2019-09-11 19:11] LABS: Bacteria RARE /hpf (None Seen)
[2019-09-11 19:12] LABS: White Blood Cells 0-5 SEEN /hpf (0-5)
[2019-09-11 19:13] LABS: Calcium Oxalate Crystals Ur RARE /hpf (<or=2+)
--- NOTE | 2019-09-11 19:30 | HP.PCM_ITS ---
Problem List (1) Debility Status: Acute (2) CKD (chronic kidney disease), stage III Status: Chronic (3) Hypertension Status: Chronic Qualifiers: Hypertension type: essential hypertension Qualified Code(s): I10 - Essential (primary) hypertension (4) GERD (gastroesophageal reflux disease) Status: Chronic Qualifiers: Esophagitis presence: esophagitis presence not specified Qualified Code(s): K21.9 - Gastro-esophageal reflux disease without esophagitis (5) Gout Status: Chronic Qualifiers: Gout site: unspecified site (6) Presence of permanent cardiac pacemaker Status: Chronic Comment: MICRA placed ;AVN ablation @ [facility] 04/26/19 (7) Paroxysmal atrial fibrillation Status: Chronic (8) Hyperlipidemia Status: Chronic Qualifiers: Hyperlipidemia type: unspecified Qualified Code(s): E78.5 - Hyperlipidemia, unspecified (9) Benign hypertension Status: Chronic (10) Rheumatoid arthritis Status: Chronic Qualifiers: Rheumatoid arthritis location: unspecified site Rheumatoid factor presence: unspecified presence Qualified Code(s): M06.9 - Rheumatoid arthritis, unspecified History of Present Illness Date of Admission: 09/11/19 Chief Complaint: Elevated BP, confusion. The patient is a 73 y/o F w/ PMHx: HTN, HLD, Rheumatoid arthritis, GERD, Fibromyalgia, PAF s/p RFA, Chronic back pain with spinal stenosis, Valvular heart disease who presents to the [facility] ED on 09/11/19, initially seen on 09/10/2019 with general malaise and fatigue for several days noted to live alone with an intermittent caregiver with nausea with emesis x 2 over the last 48 hours, able to tolerate oral intake currently however and occasional headache, frontal, mild 2-3/10 with no light or sounds sensitivity which she reports to have had for several weeks intermittently with no chest discomfort, dyspnea, cough, fever or chills with unremarkable evaluation in the ED at that time with normal CBC, troponin less than 0.015, unremarkable chemistry, CT brain without acute finding, chest x-ray with no acute cardiopulmonary findings, urinalysis unremarkable with pending urine culture however she was not improving prompting return to the ED for further evaluation. The patient and family notes she has presented similarly in the past with UTI despite unremarkable UA and are very concerned about her. The patient denies any suprapubic discomfort, dysuria or any different urinary symptoms. She notes she does urinate frequently but she is on lasix. She denies any recent falls or any neurological deficits. Work-up in the ED included T 97.8, heart rate 78, BP 159/95, respiratory rate 16, 95% on room air, CBC with WBC 10.6, hemoglobin 12.1, platelet 241 with left shift, CMP with BUN/creatinine 22/1.12, glucose 118, total troponin less than 0.015, alk phos 163 otherwise unremarkable hepatic profile, urinalysis with elevated specific gravity suggestive of dehydration with no obvious evidence of UTI, CT brain with chronic involutional changes, EKG paced with no acute evidence of ischemia. Past Medical History Past Medical History (Chronic Problems): Chronic Problems (Last Reviewed 07/23/19 @ 11:06 by Marika Schrader) Chronic diarrhea (Chronic) Helicobacter pylori infection (Chronic) Chronic kidney disease (Chronic) Mitral valve prolapse (Chronic) Body mass index (BMI) 40.0-44.9, adult (Chronic) Hypertension (Chronic) GERD (gastroesophageal reflux disease) (Chronic) Gout (Chronic) Edema (Chronic) CKD (chronic kidney disease), stage III (Chronic) Rheumatoid arthritis (Chronic) Presence of permanent cardiac pacemaker (Chronic ~04/26/19) MICRA placed ;AVN ablation @ [facility] 04/26/19 Old myocardial infarction (Chronic) Paroxysmal atrial fibrillation (Chronic) Nonrheumatic mitral (valve) insufficiency (Chronic) Nonrheumatic mitral (valve) prolapse (Chronic) Recurrent pancreatitis (Chronic) Hyperlipidemia (Chronic) Familial combined hyperlipidemia (Chronic) Morbid obesity with BMI of 40.0-44.9, adult (Chronic) Benign hypertension (Chronic) Medical History: Medical History (Last Reviewed 07/23/19 @ 11:06 by Marika Schrader) Old myocardial infarction (Chronic) I25.2 Paroxysmal atrial fibrillation (Chronic) I48.0 Nonrheumatic mitral (valve) insufficiency (Chronic) I34.0 Nonrheumatic mitral (valve) prolapse (Chronic) I34.1 Recurrent pancreatitis (Chronic) K86.1 Hyperlipidemia (Chronic) E78.5 Familial combined hyperlipidemia (Chronic) E78.4 Morbid obesity with BMI of 40.0-44.9, adult (Chronic) E66.01, Z68.41 Benign hypertension (Chronic) I10 Gout M10.9 Diverticulitis K57.92 Fibromyalgia M79.7 GERD (gastroesophageal reflux disease) K21.9 Rheumatoid arthritis M06.9 Spinal stenosis of lumbar region M48.061 History of cardioversion Onset Date: ~04/23/19 Z98.890 04/23/19 Screening for intestinal cancer (Resolved) Z12.10 Allergies Penicillins Allergy (Verified 09/11/19 17:06) Hives atorvastatin [From Lipitor] Adverse Reaction (Severe, Verified 09/11/19 17:06) Elevated LFT Home Medications: Ambulatory Orders Medication Instructions Recorded Allopurinol 300 mg PO DAILY #30 tab 05/31/19 Apixaban [Eliquis] 5 mg PO BID #60 tab 06/03/19 ezetimibe 10 mg tablet 10 mg PO DAILY #90 tab 06/17/19 polyethylene glycol 3350 17 17 g PO DAILY 06/17/19 gram/dose oral powder pantoprazole 20 mg tablet,delayed 20 mg PO DAILY #0 tab 06/30/19 release acetaminophen 500 mg tablet 500 mg PO Q6H PRN 07/23/19 furosemide 40 mg tablet 40 mg PO DAILY #90 tab 07/23/19 metolazone 5 mg tablet 5 mg PO .COMPLEX #30 tab 07/23/19 oxycodone-acetaminophen 5 mg-325 1 tab PO TID PRN 07/23/19 mg tablet potassium chloride 20 mEq 20 meq PO DAILY #60 tab 08/11/19 tablet,extended release(part/cryst) Ondansetron [Zofran Odt] 4 mg PO Q8H PRN PRN #10 tab 09/10/19 Surgical History: Surgical History (Last Reviewed 07/23/19 @ 11:06 by Marika Schrader) H/O endoscopic retrograde cholangiopancreatography Z98.890 with removal of stent and biliary sludge History of appendectomy Z90.49 History of back surgery Z98.890 History of cardiac radiofrequency ablation Onset Date: ~10/2008 Z98.890 History of cholecystectomy Z90.49 History of left knee replacement Z96.652 S/P lumbar fusion Z98.1 Surgical History: appendectomy, cataract, cholecystectomy, total knee arthroplasty - left, - - Foot surgery, carpal tunnel surgery, ERCP, lumbar spine surgery, RF ablation, micro implant pacer. Psychiatric History: No pertinent psych hx RADIO TALK SHOW HOST History: No pertinent RADIO TALK SHOW HOST history Lives: Alone Smoking Status: Never smoker Tobacco Use: Non-smoker Alcohol: None Drugs: None - *Family History Maternal Family History: Family History (Last Reviewed 07/23/19 @ 11:06 by Marika Schrader) Sister Hypertension Other Arthritis Cancer Diabetes History Items: Renal Disease - age 70 Paternal Family History: Family History (Last Reviewed 07/23/19 @ 11:06 by Marika Schrader) Sister Hypertension Other Arthritis Cancer Diabetes History Items: - - Father at age 45 secondary to complications of cirrhosis. Review of Systems Constitutional: Reports: Anorexia, Malaise, Weakness, Fatigue. Denies: Chills, Fever, Weight Change HEENT: Denies: Head Aches, Sinus Congestion, Sinus Drainage Cardiovascular: Denies: Chest Pain, Chest Pressure, Chest Tightness, Light Headedness, Orthopnea, Palpitations, Syncope Respiratory: Denies: Cough, Shortness of Breath, Shortness of breath at rest, Shortness of breath upon exertion, Sputum production Gastrointestinal: Reports: Nausea, Vomiting. Denies: Abdominal Pain, Constipation, Diarrhea Genitourinary: Denies: Dysuria Musculoskeletal: Reports: Joint Pain. Denies: Joint Tenderness Skin: Denies: Rash, Wounds Neurological: Reports: Confusion. Denies: Focal weakness, Numbness, Tingling Psychiatric: Denies: Anxiety, Depression, Homicidal Ideations, Suicidal Ideations Hematologic/ Lymphatic: Reports: Easy Bruising, Easy Bleeding VTE Information - Inpt Only VTE Present on Admission: No VTE Mechan Device Prophylaxis: SCD's VTE Pharm Prophylaxis ordered?: No Reason prophylaxis not ordered:: Treatment Not Indicated - Continued on patient oral home anticoagulant therapy. Patient Problems: Active and Suspected Problems (Last Reviewed 07/23/19 @ 11:06 by Marika Schrader) Confusion (Acute) Subjective: Patient seated upright in the ED bed, no acute distress, denies feeling poorly. Objective: Physical Examination: General: awake, alert, oriented x 3 including person, place, recent events, no obvious evidence of confusion, remains cooperative, seated upright in the ED bed in no apparent distress. Skin: normal color, turgor, no icterus, cyanosis. HEENT: AT/NC, EOMI, PERRLA, mildly dry MM, no carotid bruits or JVD noted. Lungs: CTA bilaterally, moderate effort, mild decrease BL bases, no rales, ronchi or wheezing. Heart: Regular rate and rhythm; no gallop, rub audible. Abdomen: soft, obese, NTTP, ND, normal BS, no HSM. Extremities: no cyanosis, clubbing, or edema, significant left lower extremity discomfort with palpation which is chronic with significant neuropathy. Neurological: patient awake, alert, oriented x 3; cognitive function intact; pupils equally reactive to light and accomodation; cranial nerves II-XII grossly normal, moving all 4 extremities, no focal deficits, strength moderately global decrease secondary to general malaise, fatigue, GI complaints. Psychiatric: affect appears mildly fatigued otherwise normal, mildly irritable, no acute evidence of depressive or anxiety feelings. - Physical Exam Vitals/I&O's: Vital Signs Temp Pulse Resp BP Pulse Ox 97.8 F 74 15 152/83 H 96 09/11/19 17:06 09/11/19 18:28 09/11/19 18:28 09/11/19 18:28 09/11/19 18:28 Oxygen Delivery Method Room Air Weight: 205 lb Body Mass Index (BMI) 36.3 Laboratory Results 09/11/19 17:44: WBC 10.6, RBC 4.45, Hgb 12.1, Hct 39.0, MCV 87.6, MCH 27.2, MCHC 31.0 L, RDW Std Deviation 51.4 H, RDW Coeff of Patel 16.1 H, Plt Count 241, MPV 10.2, Immature Gran % (Auto) 0.400, Neut % (Auto) 79.6 H, Lymph % (Auto) 11.0 L, [place] % (Auto) 8.3, Eos % (Auto) 0.6, Baso % (Auto) 0.1, Absolute Neuts (auto) 8.4 H, Absolute Lymphs (auto) 1.16, Nucleated RBC % 0 09/11/19 17:44: Sodium 136, Potassium 3.6, Chloride 102, Carbon Dioxide 30.0, Anion Gap 4 L, BUN 22 H, Creatinine 1.12 H, Estim Creat Clear Calc 35.90, Est GFR (MDRD) Af Amer 61, Est GFR (MDRD) Non-Af 50 L, BUN/Creatinine Ratio 19.6, Glucose 118 H, Calcium 9.3, Total Bilirubin 0.60, AST 22, ALT 19, Alkaline Phosphatase 163 H, Troponin I < 0.015, Total Protein 7.1, Albumin 3.3, Globulin 3.8, Albumin/Globulin Ratio 0.9 09/11/19 18:50: Urine Color Yellow, Urine Clarity Sl. Cloudy, Urine pH 6.0, Ur Specific [place] 1.020, Urine Protein 30 H, Urine Glucose (UA) Normal, Urine Ketones Negative, Urine Occult Blood 50 H, Urine Nitrite Negative, Urine Bilirubin Negative, Urine Urobilinogen 1 H, Ur Leukocyte Esterase 25 H, Urine RBC 0-5 SEEN, Urine WBC 0-5 SEEN, Ur Squamous Epith Cells 10-25 SEEN, Calcium Oxalate Crystal RARE, Urine Bacteria RARE, Urine Mucus 0 SEEN Current Medications Sodium Chloride () 1,000 mls @ 150 mls/hr IV .Q6H40M [facility] Last Admin: 09/11/19 18:18 Dose: 150 mls/hr Documented by: Assessment/Plan All Active Problems (Last Reviewed 07/23/19 @ 11:06 by Marika Schrader) Debility (Acute) Atrial fibrillation with rapid ventricular response (Acute) Nausea and vomiting (Acute) Fecal impaction (Acute) Confusion (Acute) Urinary tract infection (Acute) Sepsis (Acute) Sinus tachycardia by electrocardiogram (Acute) Acute kidney injury (Acute) Hyperkalemia (Acute) Constipation (Acute) Lichen sclerosus (Acute) Dyspnea (Acute) Orthopnea (Acute) Acute bronchitis (Resolved) Chills (Resolved) Episodic confusion (Resolved) Fall at home (Resolved) Leukocytosis (Resolved) Malaise (Resolved) Screening for intestinal cancer (Resolved) Sepsis (Resolved) Urinary tract infection (Resolved) The patient is a 73 y/o F w/ PMHx: HTN, HLD, Rheumatoid arthritis, GERD, Fibromyalgia, PAF s/p RFA, Chronic back pain with spinal stenosis, Valvular heart disease who presents to the [facility] ED on 09/11/19, initially seen on 09/10/2019 with general malaise and fatigue for several days noted to live alone with an intermittent caregiver with nausea with emesis x 2 over the last 48 hours. 1. Generalized, fatigue, nausea and emesis, unclear etiology: Patient clinically improved appearance, some evidence of mild dehydration, will admit to medical surgical floor on telemetry, evaluate patient pacemaker, cycle cardiac enzymes, obtain magnesium level and supplement if appropriate, repeat CBC, CMP in a.m., maintain on fall and aspiration precautions, PRN antiemetics, PT, OT, case management consultations for discharge planning. 2. PAF: Status post EPS/RFA, pacemaker status with most recent check 07/20/2019, evaluation requested, will continue home Eliquis, not on rate or rhythm agent. 3. Chronic back pain with spinal stenosis: Every 2 hours positional changes, fall precautions, PT and OT consulted given presentation as noted. 4. Valvular heart disease: 04/22/2019 echocardiogram with EF 65%, severely enlarged LA, moderate to severe mitral annular calcification, moderate MV prolapse, moderate MVI, mild to moderate TBI, trivial ALOK, evidence of a patent foramen ovale. 5. Chronic Kidney Disease Stage III: Admission BUN/Cr 22/1.12, baseline renal function 0.8-1.2, stable, repeat BMP in AM. 6. Hypertension: Continue home regimen including Lasix, possibly metolazone but clarifying with specific hold parameters, PRN hydralazine. 7. Hyperlipidemia: Noted statin allergy, continue Zetia. 8. Gout: We will continue patient home allopurinol. 9. ? Rheumatoid arthritis: Noted per patient and in prior history, not on specific agent, continue patient pain regimen with encouraged continued rheumatology outpatient follow-up. 10. DVT prophylaxis: SCDs, continue home Eliquis regimen. 11. CODE status: Patient HCPOA is BJ per patient and family report and living will is currently in place. Discussed CODE status at length including difference between FULL code, DNR-CCA and DNR-CC status. Following discussions about the differences in these status, requested Full Code status. Advanced Care Planning Face to Face Time: 16 minutes. OBSV E&M: 96597 Initial observation care L3 Procedures: 54050 Advncd Care Plan 30 Min
[2019-09-11 20:31] VITALS: BMI 36.6; BMI 36.7
[2019-09-11 21:06] VITALS: BP 158/74; PULSE 72; RESP 24; TEMP 36.8; O2SAT 98
[2019-09-11 21:29] VITALS: BP 147/81; BP 158/99; BP 164/95; PULSE 70; PULSE 73; PULSE 75
[2019-09-11 22:00] VITALS: PULSE 73
[2019-09-11 22:14] LABS: Magnesium 1.9 mg/dL (1.6-2.6)
[2019-09-11] MEDS: APIXABAN 5 MG TABLET PO (22:22)
[2019-09-11] MEDS: 0.9% Normal Saline 1,000 ML 75 ML IV (22:22)
[2019-09-12] VITALS (10 sets, daily range): BP systolic 138–148; BP diastolic 61–79; PULSE 70–80; RESP 16–20; TEMP 36.4–36.9; O2SAT 95–100
[2019-09-12 06:18] LABS: Absolute Neutrophil Count 5.9 X10^3/uL (2.0-7.7); Basophil# 0.01 X10^3/uL; Basophil% 0.1 % (0-1); Eosinophil# 0.06 X10^3/uL; Eosinophils% 0.8 % (0-5); Hematocrit 37.2 % (37-47); Hemoglobin 11.5 g/dL (12.0-15.0); Lymphocyte % 15.3 % (19-41); Mean Corp Hgb Conc 30.9 g/dL (32-36); Mean Corpuscular Hgb 27.1 pg (27.0-32.0); Mean Corpuscular Volume 87.5 fL (81-99); Mean Platelet Vol. 10.6 fl (6.2-12.0); Monocyte# 0.66 X10^3/uL; Monocyte% 8.4 % (0-10); NRBC Flagged by Analyzer 0 % (0-5); Neutrophil # 5.88 X10^3/uL (2.7-7.7); Platelet Count 204 K/mm3 (150-450); RBC Distribution Width SD 50.6 fl (35.1-43.9); Red Blood Count 4.25 M/mm3 (4.2-5.4); White Blood Count 7.8 K/mm3 (4.4-11.0)
[2019-09-12] MEDS: Acetaminophen 325 MG Tablet 650 MG PO ×2 (06:28→22:13)
[2019-09-12] MEDS: oxyCODONE 5 MG Tablet PO ×3 (06:28→22:12)
[2019-09-12 06:59] LABS: ALB/GLOB Ratio 0.8 RATIO (0.9-2.4); AST(SGOT) 14 U/L (15-37); Alanine Aminotransfer ALT/SGPT 15 U/L (13-56); Albumin, Serum 2.7 g/dL (3.2-5.0); Alkaline Phosphatase 131 U/L (45-117); Anion Gap 4 (5-15); BUN 18 mg/dL (7-18); BUN/Creat Ratio 20.3 RATIO (10-20); Calcium,Total 8.8 mg/dL (8.5-10.1); Chloride 108 mmol/L (98-107); Creatinine, Serum 0.88 mg/dL (0.55-1.02); EST Glomerular Filtration Rate 66 mL/min (>60); Est Glom Filt Rate - Afr Amer 80 mL/min (>60); Estimated Creatinine Clearance 45.69 ml/min; Globulin 3.2 g/dL (2.2-4.2); Glucose 96 mg/dL (74-106); Potassium 3.5 mmol/L (3.5-5.1); Protein, Total 5.9 g/dL (6.4-8.2); Sodium Level 141 mmol/L (136-145); Thyroid Stim Hormone (TSH) 1.06 uIU/mL (0.358-3.74)
--- NOTE | 2019-09-12 07:28 | PN_ITS ---
Patient Problems: Active and Suspected Problems (Last Reviewed 07/23/19 @ 11:06 by Marika Schrader) Confusion (Acute) Reason for Visit: Adult failure to thrive Subjective: Patient is a 73-year-old lady brought to the emergency department with confusion and generalized weakness while a suspicion of stroke by her family. Head CT obtained in the ED was unremarkable patient was found to have elevated blood pressure on admission Objective: GENERAL: cooperative HEENT: Atraumatic; EYES; Anicteric, Normal Conjunctiva NECK; supple, normal thyroid, RESPIRATORY: Diminished to auscultation CARDIOVASCULAR: Regular S1 S2, GI: soft, normoactive bowel sounds, : No Renal angle tenderness; EXTREMITIES: No edema, no clubbing, MUSCULOSKELETAL: no muscle waisting NEURO: Awake; no lateralizing signs. SKIN: No Rash PSYCH; Flat affect Vitals/I&O's: Vital Signs Temp Pulse Resp BP Pulse Ox 97.8 F 72 16 148/76 H 96 09/12/19 07:23 09/12/19 07:23 09/12/19 07:23 09/12/19 07:23 09/12/19 07:23 Oxygen Delivery Method Room Air Weight: 93.9 kg Body Mass Index (BMI) 36.6 Intake and Output for Last 24 Hours 09/10/19 09/11/19 09/12/19 23:59 23:59 23:59 Intake Total 617.5 / 617.5 300 / 300 Output Total 300 / 300 Balance 617.5 / 617.5 0 / 0 Laboratory Results 09/11/19 17:44: WBC 10.6, RBC 4.45, Hgb 12.1, Hct 39.0, MCV 87.6, MCH 27.2, MCHC 31.0 L, RDW Std Deviation 51.4 H, RDW Coeff of Patel 16.1 H, Plt Count 241, MPV 10.2, Immature Gran % (Auto) 0.400, Neut % (Auto) 79.6 H, Lymph % (Auto) 11.0 L, [place] % (Auto) 8.3, Eos % (Auto) 0.6, Baso % (Auto) 0.1, Absolute Neuts (auto) 8.4 H, Absolute Lymphs (auto) 1.16, Nucleated RBC % 0 09/11/19 17:44: Sodium 136, Potassium 3.6, Chloride 102, Carbon Dioxide 30.0, Anion Gap 4 L, BUN 22 H, Creatinine 1.12 H, Estim Creat Clear Calc 35.90, Est GFR (MDRD) Af Amer 61, Est GFR (MDRD) Non-Af 50 L, BUN/Creatinine Ratio 19.6, Glucose 118 H, Calcium 9.3, Total Bilirubin 0.60, AST 22, ALT 19, Alkaline Phosphatase 163 H, Troponin I < 0.015, Total Protein 7.1, Albumin 3.3, Globulin 3.8, Albumin/Globulin Ratio 0.9 09/11/19 18:50: Urine Color Yellow, Urine Clarity Sl. Cloudy, Urine pH 6.0, Ur Specific [place] 1.020, Urine Protein 30 H, Urine Glucose (UA) Normal, Urine Ketones Negative, Urine Occult Blood 50 H, Urine Nitrite Negative, Urine Bilirubin Negative, Urine Urobilinogen 1 H, Ur Leukocyte Esterase 25 H, Urine RBC 0-5 SEEN, Urine WBC 0-5 SEEN, Ur Squamous Epith Cells 10-25 SEEN, Calcium Oxalate Crystal RARE, Urine Bacteria RARE, Urine Mucus 0 SEEN 09/11/19 21:50: Magnesium 1.9, Troponin I < 0.015 09/11/19 23:57: Troponin I < 0.015 09/12/19 06:00: WBC 7.8, RBC 4.25, Hgb 11.5 L, Hct 37.2, MCV 87.5, MCH 27.1, MCHC 30.9 L, RDW Std Deviation 50.6 H, RDW Coeff of Patel 16.0 H, Plt Count 204, MPV 10.6, Immature Gran % (Auto) 0.400, Neut % (Auto) 75.0 H, Lymph % (Auto) 15.3 L, [place] % (Auto) 8.4, Eos % (Auto) 0.8, Baso % (Auto) 0.1, Absolute Neuts (auto) 5.9, Absolute Lymphs (auto) 1.20, Nucleated RBC % 0 09/12/19 06:00: Sodium 141, Potassium 3.5, Chloride 108 H, Carbon Dioxide 29.0, Anion Gap 4 L, BUN 18, Creatinine 0.88, Estim Creat Clear Calc 45.69, Est GFR (MDRD) Af Amer 80, Est GFR (MDRD) Non-Af 66, BUN/Creatinine Ratio 20.3 H, Glucose 96, Calcium 8.8, Total Bilirubin 0.50, AST 14 L, ALT 15, Alkaline Phosphatase 131 H, Total Protein 5.9 L, Albumin 2.7 L, Globulin 3.2, Albumin/Globulin Ratio 0.8 L, TSH 1.06 Current Medications Acetaminophen (Tylenol) 650 mg PO Q6H PRN PRN PRN Reason: Pain Score 1-10/Temp > 100.7 F Last Admin: 09/12/19 06:28 Dose: 650 mg Documented by: Al Hydroxide/Mg Hydroxide (Mylanta Ii) 30 ml PO Q6H PRN PRN PRN Reason: Gastric Burning Albuterol Sulfate (Ventolin Aerosols) 2.5 mg INHALATION Q2H PRN PRN PRN Reason: Dyspnea, wheezing Allopurinol (Zyloprim) 300 mg PO DAILY [facility] Apixaban (Eliquis) 5 mg PO BID [facility] Last Admin: 09/11/19 22:22 Dose: 5 mg Documented by: Dextrose (D50w Syringe) 0 gm IV X1 PRN; Protocol PRN Reason: Hypoglycemia Ezetimibe (Zetia) 10 mg PO DAILY [facility] Furosemide (Lasix) 40 mg PO DAILY [facility] Glucagon () 1 mg IM .X1 PRN PRN Reason: Hypoglycemia Guaifenesin (Robitussin) 20 ml PO Q4H PRN PRN PRN Reason: COUGH Hydralazine HCl (Apresoline Iv) 10 mg IV Q4H PRN PRN PRN Reason: SBP > 160 Sodium Chloride () 1,000 mls @ 75 mls/hr IV .[id number] [facility] Stop: 09/12/19 10:33 Last Admin: 09/11/19 22:22 Dose: 75 mls/hr Documented by: Magnesium Hydroxide (Milk Of Magnesia) 30 ml PO DAILY PRN PRN PRN Reason: Constipation Melatonin (Melatonin) 3 mg PO QHS PRN PRN PRN Reason: INSOMNIA Morphine Sulfate () 2 mg IV Q3H PRN PRN PRN Reason: Pain Score 6-10/10 Nitroglycerin (Nitrostat) 0.4 mg SUBLINGUAL Q5M PRN PRN Reason: CARDIAC/CHEST PAIN Ondansetron HCl (Zofran) 4 mg IV Q8H PRN PRN PRN Reason: NAUSEA/VOMITING Oxycodone HCl (Oxyir) 5 mg PO Q4H PRN PRN PRN Reason: Pain Score 4-5/10 Last Admin: 09/12/19 06:28 Dose: 5 mg Documented by: Pantoprazole Sodium (Protonix) 20 mg PO DAILY EM Potassium Chloride (K-Dur) 20 meq PO DAILY EM Prochlorperazine Edisylate (Compazine Iv) 5 mg IV Q4H PRN PRN PRN Reason: Breakthrough nausea/vomiting Psyllium Hydrophilic Mucilloid (Metamucil) 1 packet PO DAILY PRN PRN PRN Reason: Constipation Senna/Docusate Sodium (Senokot-S, Alla-Colace) 2 tablet PO BID PRN PRN PRN Reason: Constipation Sodium Chloride () 10 - 40 ml IV UD PRN PRN Reason: SALINE FLUSH Throat Lozenges (Cepacol Sore Throat Lozenge) 1 lozenge MUCOUS MEM Q2H PRN PRN PRN Reason: SORE THROAT STROKE Vital Signs/Narrative: Vital Signs Temp Pulse Resp BP Pulse Ox 09/12/19 07:23 97.8 F 72 16 148/76 H 96 09/12/19 04:22 73 Medical Necessity - Tobacco Use Smoking Status: Never smoker Tobacco Use: Non-smoker Assessment/Plan All Active Problems (Last Reviewed 07/23/19 @ 11:06 by Marika Schrader) Debility (Acute) Atrial fibrillation with rapid ventricular response (Acute) Nausea and vomiting (Acute) Fecal impaction (Acute) Confusion (Acute) Urinary tract infection (Acute) Sepsis (Acute) Sinus tachycardia by electrocardiogram (Acute) Acute kidney injury (Acute) Hyperkalemia (Acute) Constipation (Acute) Lichen sclerosus (Acute) Dyspnea (Acute) Orthopnea (Acute) Acute bronchitis (Resolved) Chills (Resolved) Episodic confusion (Resolved) Fall at home (Resolved) Leukocytosis (Resolved) Malaise (Resolved) Screening for intestinal cancer (Resolved) Sepsis (Resolved) Urinary tract infection (Resolved) Patient is a 73-year-old lady brought to the emergency department with confusion and generalized weakness while a suspicion of stroke by her family. Head CT obtained in the ED was unremarkable patient was found to have elevated blood pressure on admission 1. Physical deconditioning - Requested for PT OT eval and pediatric social worker to assist with discharge planning 2. Hypertension - Blood pressure elevated on admission has since improved, home medications continued with dose adjustment as needed 3. Paroxysmal A. fib ?With history of radiofrequency ablation. Rate currently controlled on systemic anticoagulation with Eliquis 4. Dyslipidemia ?Patient is on Zetia continued on admission 5. Gout ?Status controlled on allopurinol 6. Acute renal insufficiency ?Resolved with rehydration 7. Chronic back pain ?Secondary to spinal stenosis involving the lumbar region pain meds as needed 8. Obesity with BMI of 36.7 ?Weight loss advised 9. Valvular heart disease ?2D echo echocardiogram performed on 04/22/2019 demonstrated EF 65%, severely enlarged LA, moderate to severe mitral annular calcification, moderate MV prolapse, moderate MVI, mild to moderate TBI, trivial ALOK, evidence of a patent foramen ovale. 10. DVT prophylaxis ?Eliquis OBSV E&M: 77235 Subsequent observation care L3
[2019-09-12] MEDS: APIXABAN 5 MG TABLET PO ×2 (10:15→22:12)
[2019-09-12] MEDS: Pantoprazole Sodium 20 MG Tablet PO (10:16)
[2019-09-12] MEDS: Ezetimibe 10 MG Tablet PO (10:16)
[2019-09-12] MEDS: Furosemide 40 MG Tablet PO (10:16)
[2019-09-12] MEDS: Allopurinol 300 MG Tablet PO (10:17)
[2019-09-12] MEDS: Polyethylene Glycol 3350 17 GM PACKET PO (10:19)
[2019-09-13] VITALS (7 sets, daily range): BP systolic 139–152; BP diastolic 70–80; PULSE 69–88; RESP 16–18; TEMP 36.5–36.7; O2SAT 95–99
[2019-09-13 06:26] LABS: Hematocrit 37.3 % (37-47); Hemoglobin 11.5 g/dL (12.0-15.0); Mean Corp Hgb Conc 30.8 g/dL (32-36); Mean Corpuscular Hgb 27.3 pg (27.0-32.0); Mean Corpuscular Volume 88.6 fL (81-99); Mean Platelet Vol. 10.5 fl (6.2-12.0); Platelet Count 208 K/mm3 (150-450); RBC Distribution Width CV 15.9 % (11.6-14.6); RBC Distribution Width SD 51.3 fl (35.1-43.9); Red Blood Count 4.21 M/mm3 (4.2-5.4); White Blood Count 7.5 K/mm3 (4.4-11.0)
[2019-09-13 06:45] LABS: Anion Gap 4 (5-15); BUN 18 mg/dL (7-18); BUN/Creat Ratio 16.5 RATIO (10-20); Calcium,Total 9.1 mg/dL (8.5-10.1); Chloride 105 mmol/L (98-107); Creatinine, Serum 1.09 mg/dL (0.55-1.02); EST Glomerular Filtration Rate 52 mL/min (>60); Est Glom Filt Rate - Afr Amer 63 mL/min (>60); Estimated Creatinine Clearance 36.89 ml/min; Glucose 109 mg/dL (74-106); Potassium 3.9 mmol/L (3.5-5.1); Sodium Level 142 mmol/L (136-145)
--- NOTE | 2019-09-13 07:41 | PN_ITS ---
Patient Problems: Active and Suspected Problems (Last Reviewed 07/23/19 @ 11:06 by Marika Schrader) Confusion (Acute) Vitals/I&O's: Vital Signs Temp Pulse Resp BP Pulse Ox 97.7 F L 85 16 152/73 H 97 09/13/19 03:26 09/13/19 04:00 09/13/19 03:26 09/13/19 03:26 09/13/19 03:26 Oxygen Delivery Method Room Air Weight: 93.9 kg Body Mass Index (BMI) 36.6 Intake and Output for Last 24 Hours 09/11/19 09/12/19 09/13/19 23:59 23:59 23:59 Intake Total 617.5 / 617.5 1300 / 1300 500 / 500 Output Total 300 / 300 600 / 600 Balance 617.5 / 617.5 1000 / 1000 -100 / -100 Laboratory Results 09/13/19 06:18: WBC 7.5, RBC 4.21, Hgb 11.5 L, Hct 37.3, MCV 88.6, MCH 27.3, MCHC 30.8 L, RDW Std Deviation 51.3 H, RDW Coeff of Patel 15.9 H, Plt Count 208, MPV 10.5 09/13/19 06:18: Sodium 142, Potassium 3.9, Chloride 105, Carbon Dioxide 33.0 H, Anion Gap 4 L, BUN 18, Creatinine 1.09 H, Estim Creat Clear Calc 36.89, Est GFR (MDRD) Af Amer 63, Est GFR (MDRD) Non-Af 52 L, BUN/Creatinine Ratio 16.5, Glucose 109 H, Calcium 9.1, Magnesium 2.0 Current Medications Acetaminophen (Tylenol) 650 mg PO Q6H PRN PRN PRN Reason: Pain Score 1-10/Temp > 100.7 F Last Admin: 09/12/19 22:13 Dose: 650 mg Documented by: Al Hydroxide/Mg Hydroxide (Mylanta Ii) 30 ml PO Q6H PRN PRN PRN Reason: Gastric Burning Albuterol Sulfate (Ventolin Aerosols) 2.5 mg INHALATION Q2H PRN PRN PRN Reason: Dyspnea, wheezing Allopurinol (Zyloprim) 300 mg PO DAILY [facility] Last Admin: 09/12/19 10:17 Dose: 300 mg Documented by: Apixaban (Eliquis) 5 mg PO BID [facility] Last Admin: 09/12/19 22:12 Dose: 5 mg Documented by: Dextrose (D50w Syringe) 0 gm IV X1 PRN; Protocol PRN Reason: Hypoglycemia Ezetimibe (Zetia) 10 mg PO DAILY [facility] Last Admin: 09/12/19 10:16 Dose: 10 mg Documented by: Furosemide (Lasix) 40 mg PO DAILY [facility] Last Admin: 09/12/19 10:16 Dose: 40 mg Documented by: Glucagon () 1 mg IM .X1 PRN PRN Reason: Hypoglycemia Guaifenesin (Robitussin) 20 ml PO Q4H PRN PRN PRN Reason: COUGH Hydralazine HCl (Apresoline Iv) 10 mg IV Q4H PRN PRN PRN Reason: SBP > 160 Magnesium Hydroxide (Milk Of Magnesia) 30 ml PO DAILY PRN PRN PRN Reason: Constipation Melatonin (Melatonin) 3 mg PO QHS PRN PRN PRN Reason: INSOMNIA Morphine Sulfate () 2 mg IV Q3H PRN PRN PRN Reason: Pain Score 6-10/10 Nitroglycerin (Nitrostat) 0.4 mg SUBLINGUAL Q5M PRN PRN Reason: CARDIAC/CHEST PAIN Ondansetron HCl (Zofran) 4 mg IV Q8H PRN PRN PRN Reason: NAUSEA/VOMITING Oxycodone HCl (Oxyir) 5 mg PO Q4H PRN PRN PRN Reason: Pain Score 4-5/10 Last Admin: 09/12/19 22:12 Dose: 5 mg Documented by: Pantoprazole Sodium (Protonix) 20 mg PO DAILY [facility] Last Admin: 09/12/19 10:16 Dose: 20 mg Documented by: Polyethylene Glycol (Miralax) 17 gm PO DAILY [facility] Last Admin: 09/12/19 10:19 Dose: 17 gm Documented by: Potassium Chloride (K-Dur) 20 meq PO DAILY [facility] Last Admin: 09/12/19 10:15 Dose: 20 meq Documented by: Prochlorperazine Edisylate (Compazine Iv) 5 mg IV Q4H PRN PRN PRN Reason: Breakthrough nausea/vomiting Psyllium Hydrophilic Mucilloid (Metamucil) 1 packet PO DAILY PRN PRN PRN Reason: Constipation Senna/Docusate Sodium (Senokot-S, Alla-Colace) 2 tablet PO BID PRN PRN PRN Reason: Constipation Sodium Chloride () 10 - 40 ml IV UD PRN PRN Reason: SALINE FLUSH Throat Lozenges (Cepacol Sore Throat Lozenge) 1 lozenge MUCOUS MEM Q2H PRN PRN PRN Reason: SORE THROAT STROKE Vital Signs/Narrative: Vital Signs Pulse 09/13/19 04:00 85 Medical Necessity - Tobacco Use Smoking Status: Never smoker Tobacco Use: Non-smoker Assessment/Plan All Active Problems (Last Reviewed 07/23/19 @ 11:06 by Marika Schrader) Debility (Acute) Atrial fibrillation with rapid ventricular response (Acute) Nausea and vomiting (Acute) Fecal impaction (Acute) Confusion (Acute) Urinary tract infection (Acute) Sepsis (Acute) Sinus tachycardia by electrocardiogram (Acute) Acute kidney injury (Acute) Hyperkalemia (Acute) Constipation (Acute) Lichen sclerosus (Acute) Dyspnea (Acute) Orthopnea (Acute) Acute bronchitis (Resolved) Chills (Resolved) Episodic confusion (Resolved) Fall at home (Resolved) Leukocytosis (Resolved) Malaise (Resolved) Screening for intestinal cancer (Resolved) Sepsis (Resolved) Urinary tract infection (Resolved)
[2019-09-13] MEDS: Losartan Potassium 25 MG Tablet PO (10:26)
[2019-09-13] MEDS: Ezetimibe 10 MG Tablet PO (10:27)
[2019-09-13] MEDS: Pantoprazole Sodium 20 MG Tablet PO (10:27)
[2019-09-13] MEDS: APIXABAN 5 MG TABLET PO (10:27)
[2019-09-13] MEDS: Furosemide 40 MG Tablet PO (10:27)
[2019-09-13] MEDS: Allopurinol 300 MG Tablet PO (10:27)
[2019-09-13] MEDS: Polyethylene Glycol 3350 17 GM PACKET PO (10:27)
--- NOTE | 2019-09-13 11:30 | PCM.DC ---
- Discharge Diagnoses Current Active Problems: Current Active and Chronic Problems (Last Reviewed 07/23/19 @ 11:06 by Marika Schrader) Confusion (Acute) CKD (chronic kidney disease), stage III (Chronic) Rheumatoid arthritis (Chronic) Reason(s) for Visit for Discharge Instructions: Generalised weakness, nausea, vomiting You will use the following diet at home:: Cardiac Your food should be the consistency of: Regular Your liquids should be the consistency of: Regular/Thin Discharge Activity: Return to Normal Activity Additional Instructions: Follow-up with your primary care doctor within 1-2 weeks. You will need repeat blood work to follow-up on your kidney function. Allergies/Adverse Reactions: Allergies Penicillins Allergy (Verified 09/11/19 17:06) Hives atorvastatin [From Lipitor] Adverse Reaction (Severe, Verified 09/11/19 20:44) Elevated LFT pt states this was a long time ago; not sure about reaction Medications to take at Discharge Apixaban [Eliquis] 5 mg PO BID #60 tab 06/03/19 polyethylene glycol 3350 17 gram/dose oral powder 17 g PO DAILY 06/17/19 acetaminophen 500 mg tablet 500 mg PO Q6H PRN 07/23/19 oxycodone-acetaminophen 5 mg-325 mg tablet 1 tab PO TID PRN 07/23/19 Ondansetron [Zofran Odt] 4 mg PO Q8H PRN PRN #10 tab 09/10/19 Allopurinol 300 mg PO DAILY 09/11/19 Ezetimibe 10 mg PO QHS 09/11/19 Furosemide 40 mg PO DAILY 09/11/19 Pantoprazole Sodium 20 mg PO DAILY 09/11/19 Potassium Chloride [K-Dur] 20 meq PO DAILY 09/11/19 Losartan Potassium [Cozaar] 25 mg PO DAILY 30 Days #30 tab 09/13/19 The following prescriptions were given: Losartan Potassium [Cozaar] 25 mg PO DAILY 30 Days #30 tab Transmission Status: Pending to [facility]/pharmacy #[id number] Primary Care Physician: Miles Reid MD [Primary Care Provider] - Please follow up with your Primary Care Physician in: within 1-2 weeks Test Results: Test results from this visit will be discussed in further detail at your follow-up appointment, if applicable. Proposed Discharge Date: 09/13/19
--- NOTE | 2019-09-13 11:33 | PCM.DC.SUM ---
Discharge Date and Diagnosis - Problem List Patient Problems: Active and Suspected Problems (Last Reviewed 07/23/19 @ 11:06 by Marika Schrader) Confusion (Acute) Date of Admission: 09/11/19 Date of Discharge: 09/13/19 - Primary Discharge Diagnosis Acute Problems: Active Problems (Last Reviewed 07/23/19 @ 11:06 by Marika Schrader) 1. Acute metabolic encephalopathy, resident on admission, resolved 2. Dehydration 3. Debility Suspected Problems: Paroxysmal A. fib Hypertension Gout Chronic back pain Obesity Valvular heart disease - Secondary Discharge Diagnosis Chronic Problems: Chronic Problems (Last Reviewed 07/23/19 @ 11:06 by Marika Schrader) Chronic diarrhea (Chronic) Helicobacter pylori infection (Chronic) Chronic kidney disease (Chronic) Mitral valve prolapse (Chronic) Body mass index (BMI) 40.0-44.9, adult (Chronic) Hypertension (Chronic) GERD (gastroesophageal reflux disease) (Chronic) Gout (Chronic) Edema (Chronic) CKD (chronic kidney disease), stage III (Chronic) Rheumatoid arthritis (Chronic) Presence of permanent cardiac pacemaker (Chronic ~04/26/19) MICRA placed ;AVN ablation @ [facility] 04/26/19 Old myocardial infarction (Chronic) Paroxysmal atrial fibrillation (Chronic) Nonrheumatic mitral (valve) insufficiency (Chronic) Nonrheumatic mitral (valve) prolapse (Chronic) Recurrent pancreatitis (Chronic) Hyperlipidemia (Chronic) Familial combined hyperlipidemia (Chronic) Morbid obesity with BMI of 40.0-44.9, adult (Chronic) Benign hypertension (Chronic) Hospital Course and Treatment Imaging Results: Clinical Impression(s) from Imaging Studies Brain CT 09/11/19 17:28 IMPRESSION: Chronic involutional changes of the brain. Findings are similar to the previous day''s study. Electronically Signed: Celso Ayala MD at 18:21 EDT , Service support , None Operations: None Procedures: None Summary of Care Provided: The patient is a 73 year old F with past medical history of hypertension, hyperlipidemia, rheumatoid arthritis, paroxysmal atrial fibrillation who comes in with generalized malaise and fatigue as well as vomiting for 2 days. She also admitted to some headaches but with no photosensitivity or sound sensitivity. She denied any chest pain or dizziness palpitation. Vitals in the ED was unremarkable save for elevated blood pressure. Her work-up showed slight dehydration. UA was unremarkable. Patient was admitted and had on IV fluids. Her blood pressure was better controlled. Patient showed improvement. She was started on losartan on the day of discharge. She was being seen by PT and OT and did not qualify for any additional services. She will follow-up with her primary care doctor in 1 to 2 weeks. She needs to have a repeat blood work done within a week to follow-up on her kidney function after start of losartan. Patient Problems: Active and Suspected Problems (Last Reviewed 07/23/19 @ 11:06 by Marika Schrader) Confusion (Acute) Subjective: On the day of discharge, patient was seen and examined. Denied any new complaints. - Physical Exam Vitals/I&O's: Vital Signs Temp Pulse Resp BP Pulse Ox 98.0 F 69 18 139/70 H 99 09/13/19 10:20 09/13/19 10:20 09/13/19 10:20 09/13/19 10:20 09/13/19 10:20 Oxygen Delivery Method Room Air Weight: 93.9 kg Body Mass Index (BMI) 36.6 Intake and Output for Last 24 Hours 09/11/19 09/12/19 09/13/19 23:59 23:59 23:59 Intake Total 617.5 / 617.5 1300 / 1300 500 / 500 Output Total 300 / 300 600 / 600 Balance 617.5 / 617.5 1000 / 1000 -100 / -100 General: Alert, Oriented x3, Cooperative, No apparent distress HEENT: Atraumatic, PERRLA, EOMI, Normocephalic Oral: Moist Mucosa Neck: Supple Lungs: Clear to auscultation, Normal air movement Cardiovascular: Regular rate, Regular Rhythm, Normal S1, Normal S2, No murmurs Abdomen: Bowel Sounds Present, Soft, Non Tender Extremities: No edema Skin: No rashes Musculoskeletal: No Tenderness to Palpation of Joints or Extremities Lymphatic: No Cervical, Supraclavicular, or Inguinal Adenopathy Neurological: Cranial nerves II-XII grossly intact, Neuro grossly intact Psych/Mental Status: Normal Affect, Appropriate Laboratory Results 09/13/19 06:18: WBC 7.5, RBC 4.21, Hgb 11.5 L, Hct 37.3, MCV 88.6, MCH 27.3, MCHC 30.8 L, RDW Std Deviation 51.3 H, RDW Coeff of Patel 15.9 H, Plt Count 208, MPV 10.5 09/13/19 06:18: Sodium 142, Potassium 3.9, Chloride 105, Carbon Dioxide 33.0 H, Anion Gap 4 L, BUN 18, Creatinine 1.09 H, Estim Creat Clear Calc 36.89, Est GFR (MDRD) Af Amer 63, Est GFR (MDRD) Non-Af 52 L, BUN/Creatinine Ratio 16.5, Glucose 109 H, Calcium 9.1, Magnesium 2.0 Current Medications Acetaminophen (Tylenol) 650 mg PO Q6H PRN PRN PRN Reason: Pain Score 1-10/Temp > 100.7 F Last Admin: 09/12/19 22:13 Dose: 650 mg Documented by: Al Hydroxide/Mg Hydroxide (Mylanta Ii) 30 ml PO Q6H PRN PRN PRN Reason: Gastric Burning Albuterol Sulfate (Ventolin Aerosols) 2.5 mg INHALATION Q2H PRN PRN PRN Reason: Dyspnea, wheezing Allopurinol (Zyloprim) 300 mg PO DAILY [facility] Last Admin: 09/13/19 10:27 Dose: 300 mg Documented by: Apixaban (Eliquis) 5 mg PO BID [facility] Last Admin: 09/13/19 10:27 Dose: 5 mg Documented by: Dextrose (D50w Syringe) 0 gm IV X1 PRN; Protocol PRN Reason: Hypoglycemia Ezetimibe (Zetia) 10 mg PO DAILY [facility] Last Admin: 09/13/19 10:27 Dose: 10 mg Documented by: Furosemide (Lasix) 40 mg PO DAILY [facility] Last Admin: 09/13/19 10:27 Dose: 40 mg Documented by: Glucagon () 1 mg IM .X1 PRN PRN Reason: Hypoglycemia Guaifenesin (Robitussin) 20 ml PO Q4H PRN PRN PRN Reason: COUGH Hydralazine HCl (Apresoline Iv) 10 mg IV Q4H PRN PRN PRN Reason: SBP > 160 Losartan Potassium (Cozaar) 25 mg PO DAILY [facility] Last Admin: 09/13/19 10:26 Dose: 25 mg Documented by: Magnesium Hydroxide (Milk Of Magnesia) 30 ml PO DAILY PRN PRN PRN Reason: Constipation Melatonin (Melatonin) 3 mg PO QHS PRN PRN PRN Reason: INSOMNIA Nitroglycerin (Nitrostat) 0.4 mg SUBLINGUAL Q5M PRN PRN Reason: CARDIAC/CHEST PAIN Ondansetron HCl (Zofran) 4 mg IV Q8H PRN PRN PRN Reason: NAUSEA/VOMITING Oxycodone HCl (Oxyir) 5 mg PO Q4H PRN PRN PRN Reason: Pain Score 4-5/10 Last Admin: 09/12/19 22:12 Dose: 5 mg Documented by: Pantoprazole Sodium (Protonix) 20 mg PO DAILY [facility] Last Admin: 09/13/19 10:27 Dose: 20 mg Documented by: Polyethylene Glycol (Miralax) 17 gm PO DAILY [facility] Last Admin: 09/13/19 10:27 Dose: 17 gm Documented by: Prochlorperazine Edisylate (Compazine Iv) 5 mg IV Q4H PRN PRN PRN Reason: Breakthrough nausea/vomiting Psyllium Hydrophilic Mucilloid (Metamucil) 1 packet PO DAILY PRN PRN PRN Reason: Constipation Senna/Docusate Sodium (Senokot-S, Alla-Colace) 2 tablet PO BID PRN PRN PRN Reason: Constipation Sodium Chloride () 10 - 40 ml IV UD PRN PRN Reason: SALINE FLUSH Throat Lozenges (Cepacol Sore Throat Lozenge) 1 lozenge MUCOUS MEM Q2H PRN PRN PRN Reason: SORE THROAT Discharge Diet: Low fat/ Low Cholesterol, 2000 mg Sodium Diet Discharge Activity: Return to Normal Activity Home Medications: Medications to take at Discharge Apixaban [Eliquis] 5 mg PO BID #60 tab 06/03/19 polyethylene glycol 3350 17 gram/dose oral powder 17 g PO DAILY 06/17/19 acetaminophen 500 mg tablet 500 mg PO Q6H PRN 07/23/19 oxycodone-acetaminophen 5 mg-325 mg tablet 1 tab PO TID PRN 07/23/19 Ondansetron [Zofran Odt] 4 mg PO Q8H PRN PRN #10 tab 09/10/19 Allopurinol 300 mg PO DAILY 09/11/19 Ezetimibe 10 mg PO QHS 09/11/19 Furosemide 40 mg PO DAILY 09/11/19 Pantoprazole Sodium 20 mg PO DAILY 09/11/19 Potassium Chloride [K-Dur] 20 meq PO DAILY 09/11/19 Losartan Potassium [Cozaar] 25 mg PO DAILY 30 Days #30 tab 09/13/19 Following Prescrptions Were Given to Patient: Losartan Potassium [Cozaar] 25 mg PO DAILY 30 Days #30 tab Transmission Status: Received by [id number] Primary Care Physician: Miles Reid MD [Primary Care Provider] - Please follow up with your Primary Care Physician in: within 1-2 weeks Disposition: Home Minutes spent on discharge:: 40 Patient Condition:: Stable Medical Necessity - Tobacco Use Smoking Status: Never smoker Tobacco Use: Non-smoker Meaningful Use Info Meaningful Use Diagnoses (Choose all that apply): None applicable Inpatient E&M: 01936 [facility]
--- NOTE | 2019-09-13 11:35 | CASEMGMT ---
HOLLIS MONTERO Face to Face with patient for initial transition planning/care coordination assessment. RN WINSTON introduced self and role at [facility]. Patient sitting in chair, alert and oriented. Patient willing to participate in assessment and is able to answer all questions appropriately. Care providers, pharmacy, and demographics verified. Patient wishes to discharge home, with resumption of passport services. Patient states she has no further needs or concerns at this time. CM to follow for discharge planning needs that may arise. PCP: [facility] Specialists: Astrid, pain; Torres, infantryman [facility] Insurance: [employer], [employer] Prescription Benefit: yes Living Will/HPOA: yes, sister Chelsea Keane LNOK: sisters Living Arrangements: Patient lives alone in an apartment, no steps to enter. Patient states she is independent at home. Transportation: self/friend DME/HHC: Patient states she has a shower chair, raised toilet, cane, walker, rollator, and grab bars. Patient states she has aide services 3x/week for 3hrs/day. Patient denied additional needs Disposition Plan: Patient to discharge home with aide services and follow-up plans in place. Francia NICHOLAS, RN, CM
--- NOTE | 2019-09-13 11:39 | CASEMGMT ---
Addendum entered by Francia Power 09/13/19 13:01: DEREK received message from Luisana at [facility]. Luisana states pt has aide services through [facility] (independent provider), Emergency response button and gets 10 delivered meals a week through [employer]. Luisana states pt's new CM is Juan Barnett and Luisana will forward the message from this worker to Juan. Original Note: Social Work Note SW updated that pt has CM through [employer] and it used to be Luisana Beckham but it was getting switched to a new person. DEREK placed a call to Luisana Beckham and left message regarding pt. Pt is being discharged home today. DEREK will fax discharge paperwork once completed to Luisana at [facility]. Francia Power MANAGER DEPARTMENT, WOMEN NURSE
--- NOTE | 2019-09-14 15:16 | CASEMGMT ---
HOLLIS MONTERO Discharge Follow-Up Phone Call. Lace: 12 Strata: 3 Discharge Date: 09/13/19 Adm Dx: Malaise, debility. Attempted discharge follow-up phone call. No answer. VM message left for pt to return call to CM if she has any needs/questions/concerns. Martha NICHOLAS RN CM
== END 2019-09-13 13:37 | disposition home or self-care (01) | DRG 640 ==
LOC: ED 19:10 → MS3 22:07
PROVIDERS: Internal Medicine; Admitting Provider Family Medicine; Emergency Provider Emergency Medicine; PCP Family Medicine; Visit Provider Internal Medicine
DX: E86.0 Dehydration (principal); G93.41 Metabolic encephalopathy; R53.81 Other malaise; I48.0 Paroxysmal atrial fibrillation; I12.9 Hypertensive chronic kidney disease with stage 1 through stage 4 chronic kidney disease, or unspecified chronic kidney disease; N18.3 Chronic kidney disease, stage 3 (moderate); K21.9 Gastro-esophageal reflux disease without esophagitis; M06.9 Rheumatoid arthritis, unspecified; Z79.02 Long term (current) use of antithrombotics/antiplatelets; Z79.899 Other long term (current) drug therapy; Z95.0 Presence of cardiac pacemaker; M48.00 Spinal stenosis, site unspecified; M10.9 Gout, unspecified; Z68.36 Body mass index [BMI] 36.0-36.9, adult; E66.01 Morbid (severe) obesity due to excess calories; I34.1 Nonrheumatic mitral (valve) prolapse; R41.0 Disorientation, unspecified; R11.2 Nausea with vomiting, unspecified; E78.00 Pure hypercholesterolemia, unspecified; I25.10 Atherosclerotic heart disease of native coronary artery without angina pectoris
CPT/HCPCS: 36415; 70450; 71045; 80048; 80053; 81001; 83690; 83735; 84443; 84484; 85025; 85027; 87086; 93005; 96361; 96374; 97162; 97166; 99251; 99285; J7030; A4216; G0463; J2405

== ENCOUNTER → 2019-09-30 08:01 | Outpatient (CLI) | payer MEDICARE, OTHER, SELFPAY ==
[2019-09-11 20:31] VITALS: BMI 36.6
[2019-09-30 10:06] LABS: Absolute Lymphocyte Count 1.09 X10^3/uL (0.83-4.51); Absolute Neutrophil Count 7.8 X10^3/uL (2.0-7.7); Basophil# 0.02 X10^3/uL; Basophil% 0.2 % (0-1); Eosinophil# 0.01 X10^3/uL; Eosinophils% 0.1 % (0-5); Hematocrit 40.5 % (37-47); Hemoglobin 12.4 g/dL (12.0-15.0); Lymphocyte # 1.09 X10^3/ul (4.0); Lymphocyte % 11.5 % (19-41); Mean Corp Hgb Conc 30.6 g/dL (32-36); Mean Corpuscular Hgb 26.8 pg (27.0-32.0); Mean Corpuscular Volume 87.5 fL (81-99); Mean Platelet Vol. 10.8 fl (6.2-12.0); Monocyte# 0.45 X10^3/uL; Monocyte% 4.8 % (0-10); NRBC Flagged by Analyzer 0 % (0-5); Neutrophil # 7.81 X10^3/uL (2.7-7.7); Neutrophil % 82.6 % (47-70); Platelet Count 317 K/mm3 (150-450); RBC Distribution Width CV 16.7 % (11.6-14.6); RBC Distribution Width SD 53.3 fl (35.1-43.9); Red Blood Count 4.63 M/mm3 (4.2-5.4); White Blood Count 9.5 K/mm3 (4.4-11.0)
[2019-09-30 10:34] LABS: AST(SGOT) 19 U/L (15-37); Alanine Aminotransfer ALT/SGPT 33 U/L (13-56); Albumin, Serum 3.3 g/dL (3.2-5.0); Alkaline Phosphatase 173 U/L (45-117); Bilirubin, Direct 0.19 mg/dL (0.00-0.30); Cholesterol 173 mg/dL (200); Globulin 3.9 g/dL (2.2-4.2); High Density Lipoprotein 54 mg/dL; Phosphorus 3.4 mg/dL (2.5-4.9); Protein, Total 7.2 g/dL (6.4-8.2); Triglycerides 116 mg/dL; Very Low Density Lipoprotein 23 mg/dL (5-40)
== END ==
PROVIDERS: PCP Family Medicine; Referring Provider Internal Medicine Cardiovascular Disease; Visit Provider Internal Medicine Cardiovascular Disease
DX: M06.00 Rheumatoid arthritis without rheumatoid factor, unspecified site (principal); M79.7 Fibromyalgia; M17.0 Bilateral primary osteoarthritis of knee; M10.9 Gout, unspecified; K76.0 Fatty (change of) liver, not elsewhere classified; I48.91 Unspecified atrial fibrillation; Z95.0 Presence of cardiac pacemaker; E78.00 Pure hypercholesterolemia, unspecified; E78.5 Hyperlipidemia, unspecified; Z79.899 Other long term (current) drug therapy
CPT/HCPCS: 80061; 80076; 84100; 85025

== ENCOUNTER → 2019-12-09 | Outpatient (CLI) | payer MEDICARE, OTHER, SELFPAY ==
[2019-11-03 13:59] VITALS: BMI 36.8
--- NOTE | 2019-12-09 10:25 | BI_ITS ---
MAMMOGRAPHY - BILATERAL SCREENING REASON FOR EXAM: Female, 73 years old. Routine annual screening examination. PERTINENT HISTORY: Sister with breast cancer. TECHNIQUE: Digital bilateral breast julia (3D mammographic acquisition) in the CC and MLO projections. 2-D mediolateral oblique (MLO) and craniocaudad (CC) views of both breasts were obtained. CAD: Full Field Digital Mammography with Computer Added Detection was performed. COMPARISON: Comparison is made with prior examination dated 08/25/2018 and 08/22/2017. FINDINGS: Breast Composition: There are scattered areas of fibroglandular density. There are no dominant masses or suspicious calcifications. Stable small benign-appearing bilateral axillary lymph nodes. No other significant abnormalities are identified. There has been no significant change since the prior study. BI/SCREEN MAMM (CAD) W/JULIA BILAT IMPRESSION: Stable bilateral screening mammogram. Yearly follow-up mammogram recommended. (A) ASSESSMENT CATEGORY: BIRADS Category 2: Benign. A letter regarding these results will be sent to the patient by the facility within 30 days. Approximately 10% of breast cancers are not detected by mammography. A normal mammogram should not delay biopsy of a clinically suspicious abnormality. [id number] Electronically Signed: Wilman Louise, at 12:38 EDT , Service support ,
== END | disposition home or self-care (01) ==
LOC: OPBI 10:23
PROVIDERS: PCP Family Medicine; Referring Provider Family Medicine; Visit Provider Family Medicine
CPT/HCPCS: 77063; 77067

== ENCOUNTER 2019-12-25 08:59 | Inpatient (IN) | payer MEDICARE, OTHER, SELFPAY ==
[2019-11-03 13:59] VITALS: BMI 36.8
[2019-12-25] VITALS (11 sets, daily range): BP systolic 117–156; BP diastolic 65–96; PULSE 72–84; RESP 16–22; TEMP 36.4–36.8; O2SAT 97–100; BMI 36.4; BMI 36.5
--- NOTE | 2019-12-25 09:24 | CT_ITS ---
STUDY: CT ABDOMEN AND PELVIS WITH CONTRAST REASON FOR EXAM: Female, 74 years old. ABD PAIN, GI BLEED, RECTAL BLEEDING X 5 DAYS, ON THINNERS RADIATION DOSAGE (If Supplied By Facility): CTDIvol = ( 24.05 ) mGy, DLP = ( 1679.77 ) mGycm TECHNIQUE: Transaxial images were obtained from the dome of the diaphragm to the symphysis pubis without oral contrast. IV 100mL Isovue-300 was administered. Sagittal and coronal images were reconstructed. Individualized dose optimization techniques were used for this CT. COMPARISON: 04/19/2019 FINDINGS: The visualized lung bases are unremarkable. The visualized portions of the heart are within normal limits. Normal liver. There is non-visualization of the gallbladder, which may be secondary to either contraction or a prior cholecystectomy. Normal spleen. Normal pancreas. Normal bilateral adrenal glands. Normal right kidney. Normal left kidney. Normal visualized stomach. Small diverticulum of the second portion the duodenum. There is diverticulosis, with thickening of the colon wall, and pericolonic inflammation changes consistent with acute diverticulitis. No loculated fluid collection to suggest abscess. No pneumoperitoneum to suggest perforation. There is non-visualization of the appendix. There is diffuse atherosclerotic calcification of the abdominal aorta, without a demonstrated aneurysm. Normal inferior vena cava. Normal retroperitoneum. Normal urinary bladder. Normal abdominal wall. Status post transpedicular fixation lumbar spine. CT/Abdomen/Pelvis W IV Cont ONLY IMPRESSION: Diverticulitis the proximal sigmoid colon. Electronically Signed: Amol Alfredo MD at 11:34 EDT Tel , Service support ,
--- NOTE | 2019-12-25 09:25 | ED.VIS.GEN ---
History of Present Illness Chief Complaint: GI Bleed Narrative: This patient is a 74-year-old female who presents with a GI bleed. She had noticed bright red blood per rectum for the last 1 to 2 weeks. She initially attributed this to a hemorrhoid. However her bleeding has worsened since that time. She is now passing large clots. She also complains of about 1 week of sharp lower abdominal pain worse on the right. She denies fevers nausea vomiting. No chest pain shortness of breath or lightheadedness. She is on Eliquis for history of atrial fibrillation. She spoke to her primary care physician and her Eliquis dose was reduced but she continued to have worsening bleeding. Past Medical History - Allergies and Home Meds Allergies/Adverse Reactions: Allergies Penicillins Allergy (Verified 12/25/19 09:01) Hives atorvastatin [From Lipitor] Adverse Reaction (Severe, Verified 12/25/19 09:01) Elevated LFT pt states this was a long time ago; not sure about reaction Primary Care Physician: Miles Reid MD [Primary Care Provider] - Past Medical History: - - Atrial fibrillation, hypertension, coronary artery disease Surgical History: appendectomy, cataract, cholecystectomy, total knee arthroplasty - left, - - Foot surgery, carpal tunnel surgery, ERCP, lumbar spine surgery, RF ablation, micro implant pacer. Smoking Status: Never smoker - Family History Paternal Family History: Family History (Last Reviewed 11/03/19 @ 13:52 by Reilly Nair NP, AUTO BODY MECHANIC-C) Sister Hypertension Other Arthritis Cancer Diabetes Family History: Reports: - - Father at age 45 secondary to complications of cirrhosis. Maternal Family History: Family History (Last Reviewed 11/03/19 @ 13:52 by Reilly Nair NP, AUTO BODY MECHANIC-C) Sister Hypertension Other Arthritis Cancer Diabetes Family History: Reports: Renal Disease - age 70 Review of Systems All systems negative except as indicated General: Denies: Fever Eyes: Denies: Visual changes - bilaterally ENT: Denies: Bilateral ear pain Cardiovascular: Denies: Chest pain Respiratory: Denies: Dyspnea Gastrointestinal: Reports: Abdominal pain, Hematochezia. Denies: Nausea, Vomiting, Diarrhea, Melena Musculoskeletal: Denies: Myalgias, Arthralgias Skin: Denies: Rash Neurological: Denies: Headache Allergy: Denies: Uticaria Physical Exam Vital Signs/Narrative: Vital Signs Temp Pulse Resp BP Pulse Ox 12/25/19 09:02 97.5 F L 84 17 156/84 H 98 Inital Vital Signs reviewed: Yes General: Well nourished Head: Normocephalic Eyes: EOMI ENT: Moist mucous membranes Neck: Supple Cardiovascular: Regular rate, Regular rhythm Respiratory: No distress, CTA bilaterally Abdomen: Soft, Tender - Diffuse lower abdominal tenderness worse on the right no guarding no rebound Skin: Negative for: Normal color Neurological: Negative for: Alert Psychological: Negative for: Normal affect Diagnostic/Tx/Re-eval Impressions Abdomen/Pelvis CT 12/25/19 09:24 IMPRESSION: Diverticulitis the proximal sigmoid colon. Electronically Signed: Amol Alfredo MD at 11:34 EDT Tel , Service support , 12/25/19 09:24 Abdomen/Pelvis W IV Cont ONLY [CT] Stat Laboratory Results 12/25/19 12/25/19 12/25/19 09:50 09:50 09:50 WBC 9.0 RBC 4.01 L Hgb 11.2 L Hct 35.9 L MCV 89.5 MCH 27.9 MCHC 31.2 L RDW Std Deviation 55.1 H RDW Coeff of Patel 16.9 H Plt Count 232 MPV 10.6 Immature Gran % (Auto) 0.400 Neut % (Auto) 82.4 H Lymph % (Auto) 10.0 L [place] % (Auto) 6.8 Eos % (Auto) 0.2 Baso % (Auto) 0.2 Absolute Neuts (auto) 7.4 Absolute Lymphs (auto) 0.90 Nucleated RBC % 0 PT 14.7 INR 1.2 Sodium 141 Potassium 3.9 Chloride 109 H Carbon Dioxide 27.0 Anion Gap 5 BUN 18 Creatinine 1.21 H Estim Creat Clear Calc 32.72 Est GFR (MDRD) Af Amer 56 L Est GFR (MDRD) Non-Af 46 L BUN/Creatinine Ratio 14.9 Glucose 125 H Calcium 9.2 Total Bilirubin 0.50 AST 17 ALT 29 Alkaline Phosphatase 165 H Total Protein 6.6 Albumin 3.1 L Globulin 3.5 Albumin/Globulin Ratio 0.9 Urine Color Urine Clarity Urine pH Ur Specific [place] Urine Protein Urine Glucose (UA) Urine Ketones Urine Occult Blood Urine Nitrite Urine Bilirubin Urine Urobilinogen Ur Leukocyte Esterase Urine RBC Urine WBC Ur Squamous Epith Cells Urine Bacteria Urine Mucus 12/25/19 11:09 WBC RBC Hgb Hct MCV MCH MCHC RDW Std Deviation RDW Coeff of Patel Plt Count MPV Immature Gran % (Auto) Neut % (Auto) Lymph % (Auto) [place] % (Auto) Eos % (Auto) Baso % (Auto) Absolute Neuts (auto) Absolute Lymphs (auto) Nucleated RBC % PT INR Sodium Potassium Chloride Carbon Dioxide Anion Gap BUN Creatinine Estim Creat Clear Calc Est GFR (MDRD) Af Amer Est GFR (MDRD) Non-Af BUN/Creatinine Ratio Glucose Calcium Total Bilirubin AST ALT Alkaline Phosphatase Total Protein Albumin Globulin Albumin/Globulin Ratio Urine Color Yellow Urine Clarity Clear Urine pH 5.0 Ur Specific [place] 1.020 Urine Protein 15 H Urine Glucose (UA) Normal Urine Ketones Negative Urine Occult Blood 25 H Urine Nitrite Negative Urine Bilirubin Negative Urine Urobilinogen Normal Ur Leukocyte Esterase Negative Urine RBC 0 SEEN Urine WBC 0-5 SEEN Ur Squamous Epith Cells 0-5 SEEN Urine Bacteria 0 SEEN Urine Mucus 0 SEEN - Medical Decision Making Patient did not need anything for pain or nausea while here. Her laboratory studies are essentially unremarkable as above. CT does show diverticulitis. She has a penicillin allergy. She was treated with IV Cipro and Flagyl. She was discussed with the hospitalist and will be admitted for further evaluation and management. ED Disposition - Plan for ED Patient: Disposition: [facility] Diagnosis: Diverticulitis, GI bleed Referrals: Miles Reid MD [Primary Care Provider] -
[2019-12-25 10:05] LABS: Absolute Neutrophil Count 7.4 X10^3/uL (2.0-7.7); Basophil# 0.02 X10^3/uL; Basophil% 0.2 % (0-1); Eosinophil# 0.02 X10^3/uL; Eosinophils% 0.2 % (0-5); Hematocrit 35.9 % (37-47); Hemoglobin 11.2 g/dL (12.0-15.0); Mean Corp Hgb Conc 31.2 g/dL (32-36); Mean Corpuscular Hgb 27.9 pg (27.0-32.0); Mean Corpuscular Volume 89.5 fL (81-99); Mean Platelet Vol. 10.6 fl (6.2-12.0); Monocyte# 0.61 X10^3/uL; Monocyte% 6.8 % (0-10); NRBC Flagged by Analyzer 0 % (0-5); Neutrophil # 7.42 X10^3/uL (2.7-7.7); Neutrophil % 82.4 % (47-70); Platelet Count 232 K/mm3 (150-450); RBC Distribution Width CV 16.9 % (11.6-14.6); RBC Distribution Width SD 55.1 fl (35.1-43.9); Red Blood Count 4.01 M/mm3 (4.2-5.4)
[2019-12-25 10:32] LABS: ALB/GLOB Ratio 0.9 RATIO (0.9-2.4); AST(SGOT) 17 U/L (15-37); Alanine Aminotransfer ALT/SGPT 29 U/L (13-56); Albumin, Serum 3.1 g/dL (3.2-5.0); Alkaline Phosphatase 165 U/L (45-117); Anion Gap 5 (5-15); BUN 18 mg/dL (7-18); BUN/Creat Ratio 14.9 RATIO (10-20); Calcium,Total 9.2 mg/dL (8.5-10.1); Chloride 109 mmol/L (98-107); Creatinine, Serum 1.21 mg/dL (0.55-1.02); EST Glomerular Filtration Rate 46 mL/min (>60); Est Glom Filt Rate - Afr Amer 56 mL/min (>60); Estimated Creatinine Clearance 32.72 ml/min; Globulin 3.5 g/dL (2.2-4.2); Glucose 125 mg/dL (74-106); Potassium 3.9 mmol/L (3.5-5.1); Protein, Total 6.6 g/dL (6.4-8.2); Sodium Level 141 mmol/L (136-145)
[2019-12-25 10:49] LABS: International Normalized Ratio 1.2; Prothrombin Time (Protime)PT. 14.7 SECONDS (11.7-14.9)
[2019-12-25 11:15] LABS: Bacteria 0 SEEN /hpf (None Seen); Mucous, Urine 0 SEEN /hpf (<or=2+); Red Blood Cells-Urine 0 SEEN /hpf (0-5)
[2019-12-25 11:20] LABS: Color, Urine Yellow (Yellow); Glucose, Dipstick Normal (Normal); Ketone-Dipstick Negative (Negative); Leukocyte Esterase-Dipstick Negative /ul (Negative); Nitrite-Dipstick Negative (Negative); Occult Blood-Urine 25 /ul (Negative); Protein-Dipstick 15 mg/dl (Negative); Urine Bilirubin Dipstick Negative (Negative); Urine Clarity Clear (Clear); Urine Urobilinogen Normal (Normal)
[2019-12-25 11:35] LABS: Squamous Epithelial Cells - UA 0-5 SEEN /hpf (5-10); White Blood Cells 0-5 SEEN /hpf (0-5)
[2019-12-25] MEDS: metroNIDAZOLE 500 MG/100 ML BAG 100 MG IV ×3 (12:25→23:46)
[2019-12-25] MEDS: Ciprofloxacin 400 MG/200 ML BAG 200 MG IV ×2 (13:57→22:29)
--- NOTE | 2019-12-25 14:01 | HP.PCM_ITS ---
Problem List (1) Diverticulitis Status: Acute (2) GI bleed Status: Acute Qualifiers: GI bleed type/associated pathology: unspecified gastrointestinal hemorrhage type Qualified Code(s): K92.2 - Gastrointestinal hemorrhage, unspecified (3) Dementia Status: Acute Qualifiers: Dementia type: unspecified type (4) Chronic kidney disease Status: Chronic Qualifiers: Chronic kidney disease stage: stage 3 (moderate) (5) GERD (gastroesophageal reflux disease) Status: Chronic Qualifiers: Esophagitis presence: esophagitis presence not specified Qualified Code(s): K21.9 - Gastro-esophageal reflux disease without esophagitis History of Present Illness Date of Admission: 12/25/19 Chief Complaint: Rectal bleeding - 4 days The patient is a 74 year old F with PMHx of dementia, hypertension, hyperlipidemia, paroxysmal atrial fibrillation, who comes in with complaints of bright red bleeding per rectum. Patient denied any abdominal pain. She had vague abdominal discomfort in her suprapubic region. She denied straining during her bowel movement. She has had 2-3 bowel movements every day, bright red, with clots. She had discussed with her primary care doctor and her Eliquis was decreased to 2.5 mg twice daily. She continues to have the rectal bleeding and decided to come to emergency department. Denied fever or chills or palpitations. Vitals in the ED showed temperature of 97.5F, blood pressure 156/84, respiratory rate 17, which was 98% on room air. BC count was 9.0, hemoglobin 11.2, platelet count 232, INR 1.2 Sodium 141, potassium 3.9, chloride 100, bicarbonate 27, BUN 18, creatinine 1.21, baseline creatinine is 1.0-1.2. UA is unremarkable. CT scan of the abdomen and pelvis shows diverticulitis of the proximal sigmoid colon. Past Medical History Past Medical History (Chronic Problems): Chronic Problems (Last Updated 11/03/19 @ 14:02 by Reilly Nair POLITICAL SCIENCE CHAIR, POLITICAL SCIENCE CHAIR-C) Chronic diarrhea (Chronic) Helicobacter pylori infection (Chronic) Chronic kidney disease (Chronic) Mitral valve prolapse (Chronic) Body mass index (BMI) 40.0-44.9, adult (Chronic) Hypertension (Chronic) GERD (gastroesophageal reflux disease) (Chronic) Gout (Chronic) Edema (Chronic) CKD (chronic kidney disease), stage III (Chronic) Rheumatoid arthritis (Chronic) Presence of permanent cardiac pacemaker (Chronic ~04/26/19) MICRA placed and AVN ablation @ [facility] 04/26/19; Old myocardial infarction (Chronic) Paroxysmal atrial fibrillation (Chronic) Nonrheumatic mitral (valve) insufficiency (Chronic) Nonrheumatic mitral (valve) prolapse (Chronic) Recurrent pancreatitis (Chronic) Hyperlipidemia (Chronic) Familial combined hyperlipidemia (Chronic) Morbid obesity with BMI of 40.0-44.9, adult (Chronic) Benign hypertension (Chronic) Medical History: Medical History (Last Updated 11/03/19 @ 14:02 by Reilly Nair POLITICAL SCIENCE CHAIR, POLITICAL SCIENCE CHAIR-C) Old myocardial infarction (Chronic) I25.2 Paroxysmal atrial fibrillation (Chronic) I48.0 Nonrheumatic mitral (valve) insufficiency (Chronic) I34.0 Nonrheumatic mitral (valve) prolapse (Chronic) I34.1 Recurrent pancreatitis (Chronic) K86.1 Hyperlipidemia (Chronic) E78.5 Familial combined hyperlipidemia (Chronic) E78.4 Morbid obesity with BMI of 40.0-44.9, adult (Chronic) E66.01, Z68.41 Benign hypertension (Chronic) I10 Gout M10.9 Dementia F03.90 Diverticulitis K57.92 Fibromyalgia M79.7 GERD (gastroesophageal reflux disease) K21.9 Rheumatoid arthritis M06.9 Spinal stenosis of lumbar region M48.061 History of cardioversion Onset Date: ~04/23/19 Z98.890 04/23/19 Screening for intestinal cancer (Resolved) Z12.10 Allergies Penicillins Allergy (Verified 12/25/19 09:01) Hives atorvastatin [From Lipitor] Adverse Reaction (Severe, Verified 12/25/19 09:01) Elevated LFT pt states this was a long time ago; not sure about reaction Home Medications: Ambulatory Orders Medication Instructions Recorded polyethylene glycol 3350 17 17 g PO DAILY PRN 06/17/19 gram/dose oral powder acetaminophen 500 mg tablet 500 mg PO Q6H PRN 07/23/19 Ondansetron [Zofran Odt] 4 mg PO Q8H PRN PRN #10 tab 09/10/19 Allopurinol 300 mg PO DAILY 09/11/19 Ezetimibe 10 mg PO QHS 09/11/19 Furosemide 40 mg PO DAILY 09/11/19 Pantoprazole Sodium 20 mg PO DAILY 09/11/19 Potassium Chloride [K-Dur] 20 meq PO DAILY 09/11/19 donepezil 10 mg tablet 10 mg PO DAILY 11/03/19 losartan 25 mg tablet 25 mg PO DAILY #90 tab 11/03/19 Apixaban [Eliquis] 2.5 mg PO BID 12/25/19 Surgical History: Surgical History (Last Updated 11/03/19 @ 13:54 by Reilly Nair NP, POLITICAL SCIENCE CHAIR-C) H/O endoscopic retrograde cholangiopancreatography Z98.890 with removal of stent and biliary sludge History of appendectomy Z90.49 History of back surgery Z98.890 History of cardiac radiofrequency ablation Onset Date: ~10/2008 Z98.890 10/2008; AVN ablation at [facility] 04/2019; History of cholecystectomy Z90.49 History of left knee replacement Z96.652 S/P lumbar fusion Z98.1 Surgical History: appendectomy, cataract, cholecystectomy, total knee arthroplasty - left, - - Foot surgery, carpal tunnel surgery, ERCP, lumbar spine surgery, RF ablation, micro implant pacer. Psychiatric History: No pertinent psych hx CLINICAL BIOSTATISTICIAN History: No pertinent CLINICAL BIOSTATISTICIAN history Lives: Alone Smoking Status: Never smoker Tobacco Use: Non-smoker Alcohol: None Drugs: None - *Family History Maternal Family History: Family History (Last Reviewed 11/03/19 @ 13:52 by Reilly Nair NP, POLITICAL SCIENCE CHAIR-C) Sister Hypertension Other Arthritis Cancer Diabetes History Items: Renal Disease - age 70 Paternal Family History: Family History (Last Reviewed 11/03/19 @ 13:52 by Reilly Nair NP, POLITICAL SCIENCE CHAIR-C) Sister Hypertension Other Arthritis Cancer Diabetes History Items: - - Father at age 45 secondary to complications of cirrhosis. Review of Systems Constitutional: Denies: Anorexia, Chills, Fever, Malaise, Weakness, Weight Change, Fatigue Eyes: Denies: Blurred vision, Cataracts, Eyelid Inflammation HEENT: Denies: Difficulty Hearing, Difficulty Swallowing, Head Aches, Hearing Changes, Sinus Congestion, Sinus Drainage Cardiovascular: Denies: Chest Pain, Claudication, Orthopnea, Palpitations Respiratory: Denies: Cough, Shortness of breath at rest, Shortness of breath upon exertion, Sputum production Gastrointestinal: Reports: Diarrhea, Hematochezia. Denies: Abdominal Pain, Constipation, Nausea, Vomiting Genitourinary: Denies: Dysuria, Frequency, Incontinence Gynecological: Denies: Breast symptoms, Excessively long or heavy periods Musculoskeletal: Denies: Joint Pain, Joint stiffness, Joint Tenderness Skin: Denies: Rash, Wounds Neurological: Denies: Numbness, Tingling, Focal weakness Psychiatric: Denies: Anxiety, Depression, Homicidal Ideations, Suicidal Ideations Hematologic/ Lymphatic: Denies: Easy Bruising, Easy Bleeding VTE Information - Inpt Only VTE Present on Admission: No VTE Pharm Prophylaxis ordered?: Yes Patient Problems: Active and Suspected Problems (Last Updated 11/03/19 @ 14:02 by Reilly Nair POLITICAL SCIENCE CHAIR, POLITICAL SCIENCE CHAIR-C) Diverticulitis (Acute) GI bleed (Acute) Dementia (Acute) - Physical Exam Vitals/I&O's: Vital Signs Temp Pulse Resp BP Pulse Ox 98.1 F 79 17 141/65 H 100 12/25/19 12:32 12/25/19 13:58 12/25/19 13:58 12/25/19 13:58 12/25/19 13:58 Oxygen Delivery Method Room Air Weight: 93.4 kg Body Mass Index (BMI) 36.4 Intake and Output for Last 24 Hours 12/23/19 12/24/19 12/25/19 23:59 23:59 23:59 Intake Total 100 / 100 Balance 100 / 100 General: Alert, Oriented x3, Cooperative, No apparent distress, - - obese HEENT: Atraumatic, PERRLA, EOMI, Normocephalic Oral: Moist Mucosa Neck: Supple Lungs: Clear to auscultation, Normal air movement Cardiovascular: Regular rate, Regular Rhythm, Normal S1, Normal S2, No murmurs Abdomen: Bowel Sounds Present, Soft, Non Tender Extremities: No edema Skin: No rashes Musculoskeletal: No Tenderness to Palpation of Joints or Extremities Lymphatic: No Cervical, Supraclavicular, or Inguinal Adenopathy Neurological: Cranial nerves II-XII grossly intact, Neuro grossly intact Psych/Mental Status: Normal Affect, Appropriate Laboratory Results 12/25/19 09:50: WBC 9.0, RBC 4.01 L, Hgb 11.2 L, Hct 35.9 L, MCV 89.5, MCH 27.9, MCHC 31.2 L, RDW Std Deviation 55.1 H, RDW Coeff of Patel 16.9 H, Plt Count 232, MPV 10.6, Immature Gran % (Auto) 0.400, Neut % (Auto) 82.4 H, Lymph % (Auto) 10.0 L, [place] % (Auto) 6.8, Eos % (Auto) 0.2, Baso % (Auto) 0.2, Absolute Neuts (auto) 7.4, Absolute Lymphs (auto) 0.90, Nucleated RBC % 0 12/25/19 09:50: Sodium 141, Potassium 3.9, Chloride 109 H, Carbon Dioxide 27.0, Anion Gap 5, BUN 18, Creatinine 1.21 H, Estim Creat Clear Calc 32.72, Est GFR (MDRD) Af Amer 56 L, Est GFR (MDRD) Non-Af 46 L, BUN/Creatinine Ratio 14.9, Glucose 125 H, Calcium 9.2, Total Bilirubin 0.50, AST 17, ALT 29, Alkaline Phosphatase 165 H, Total Protein 6.6, Albumin 3.1 L, Globulin 3.5, Albumin/Globulin Ratio 0.9 12/25/19 09:50: PT 14.7, INR 1.2 12/25/19 09:50: Blood Type AB POSITIVE, Antibody Screen POSITIVE H, Antibody Identification Cancelled 12/25/19 09:50: Antibody Screen NEGATIVE, Antibody Identification COLD AGGLUTININ 12/25/19 11:09: Urine Color Yellow, Urine Clarity Clear, Urine pH 5.0, Ur Specific [place] 1.020, Urine Protein 15 H, Urine Glucose (UA) Normal, Urine Ketones Negative, Urine Occult Blood 25 H, Urine Nitrite Negative, Urine Bilirubin Negative, Urine Urobilinogen Normal, Ur Leukocyte Esterase Negative, Urine RBC 0 SEEN, Urine WBC 0-5 SEEN, Ur Squamous Epith Cells 0-5 SEEN, Urine Bacteria 0 SEEN, Urine Mucus 0 SEEN Current Medications Iopamidol (Contrast Allergy Safety Check) 0 ml IV X1 EM Assessment/Plan All Active Problems (Last Updated 11/03/19 @ 14:02 by Reilly Nair POLITICAL SCIENCE CHAIR, POLITICAL SCIENCE CHAIR-C) Diverticulitis (Acute) GI bleed (Acute) Dementia (Acute) Debility (Acute) Atrial fibrillation with rapid ventricular response (Acute) Nausea and vomiting (Acute) Fecal impaction (Acute) Confusion (Acute) Urinary tract infection (Acute) Sepsis (Acute) Sinus tachycardia by electrocardiogram (Acute) Acute kidney injury (Acute) Hyperkalemia (Acute) Constipation (Acute) Lichen sclerosus (Acute) Dyspnea (Acute) Orthopnea (Acute) Acute bronchitis (Resolved) Chills (Resolved) Episodic confusion (Resolved) Fall at home (Resolved) Leukocytosis (Resolved) Malaise (Resolved) Screening for intestinal cancer (Resolved) Sepsis (Resolved) Urinary tract infection (Resolved) 1. Acute GI bleed, suspect lower GI, history of diverticulosis, stable vitals On Eliquis, will hold Eliquis Trend H&H, IV PPI twice daily General surgery consulted from the ED Repeat blood work in a.m. 2. Acute diverticulitis, seen on CT of the abdomen and pelvis Started on IV Flagyl and Cipro, will continue same 3. Dementia, continue on Aricept 4. Hypertension, continue losartan 5. S/p pacemaker, stable, EKG shows paced rhythm 6. DVT PPx- SCDs on account of GI bleed 7. CODE STATUS?DNR CCA I discussed and explained in details the various types of CODE STATUS-full code, DNR CCA, DNR CC. I recommended appointing a healthcare power of claims administrator. Time spent discussing CODE STATUS 17 minutes Inpatient E&M: 05093 Init Hosp L3 Procedures: 95160 Advncd Care Plan 30 Min
--- NOTE | 2019-12-25 16:50 | EKG12_ITS ---
Test Reason : ADMISSION Blood Pressure : / mmHG Vent. Rate : 071 BPM Atrial Rate : 085 BPM P-R Int : 000 ms QRS Dur : 150 ms QT Int : 466 ms P-R-T Axes : 000 -64 113 degrees QTc Int : 506 ms Electronic Ventricular Paced Rhythm Abnormal ECG Confirmed by HAYLEY LOCKHART, PETER ([id number]), industrial editor LORI ROSSI ([id number]) on 12/29/2019 10:58:54 AM Referred By: ARMANDO Confirmed By:PETER HARDY MD
[2019-12-25] MEDS: 0.9% Normal Saline 1,000 ML 75 ML IV (17:30)
--- NOTE | 2019-12-25 17:51 | CON.PCM_ITS ---
- Consult Date of Consult: 12/25/19 - Reason for Consult Chief Complaint: rectal bleeding, lower abdominal pain - though minimal History of Present Illness: 74 y/o WF presents with rectal bleeding and complaint of lower abdominal pain. She has noted intermittent rectal bleeding, sometimes bright red, but also noted dark clots in the past 6 days. She has had less frequent symptoms for the past month and a half. She was recently decreased on her Eliquis dosage by her primary physician. She states that she has had bilateral lower abdominal pain for the past few days. She rates it at 2-3 out of 10 on a scale of 1-10 with 10 being the worst. She had previous colonoscopy 05/06/[address] Cardoza with findings of diverticulosis and hemorrhoids - no polyps noted In the ED - workup as follows: normal WBC, Hgb 11.2, positive left shift of differential CT scan - There is diverticulosis, with thickening of the colon wall, and pericolonic inflammation changes consistent with acute diverticulitis. No loculated fluid collection to suggest abscess. No pneumoperitoneum to s uggest perforation. There is non-visualization of the appendix. She does feel hungry at present She denies fevers. Past Medical History: coronary artery disease hypertension chronic paroxysmal atrial fibrillation chronic kidney disease anticoagulation with Eliquis obesity dementia history of tout fibromyalgia rheumatoid arthritis spinal stenosis - lumbar Past Surgical History: ERCP cholecystectomy appendectomy back surgery cardiac ablation left knee replacement lumbar fusion surgery cataract surgery foot surgery carpal tunnel surgery pacer implant Medications: allopurinol ezetimibe lasix pantoprazole Kdur donepezil losartan eliquis Allergies: penicillins atorvastatin Social history: TOB use denies Review of Systems: General - denies fevers, denies weight loss, denies anorexia Cardiovascular denies chest pain, denies chest tightness Pulmonary denies shortness of breath, denies coughing up blood Gastrointestinal as per HPI Neurological denies numbness/weakness of extremities, denies seizures Genitourinary denies burning with urination, denies blood in urine Hematological is on Eliquis, denies spontaneous/prolonged bleeding Skin denies open non healing wounds Musculoskeletal has fibromyalgia, has rheumatoid arthritis Endocrine denies diabetes Psychological denies hallucinations Physical examination: Vital signs Ht: 5'3 Wt: 205# Temp 98.5F HR 79 RR 16 BP 141/65 General WD/WN elderly, obese, WF in no apparent distress, alert and oriented, not septic appearing HEENT Normocephalic. EOM intact with sclera clear and no icterus noted. Wearing glasses. Neck is supple with no jugular venous distention noted. Trachea is midline. Lungs no labored breathing noted, such as retractions. No cough heard. Heart regular Abdomen soft and benign and obese. Difficult to determine if any masses due to body habitus Extremities no pitting edema noted. Genitourinary/Rectal deferred Skin normal skin integrity. Neurological non focal. Psychological normal affect, patient is calm and appropriate Impression: rectal bleeding lower abdominal pain Discussion/Plan: I have discussed the above with the patient. Patient states that her primary physician just recently reduced her Eliquis dosage. She has known extensive diverticulosis by colonoscopy in 2018, and also hemorrhoids, suspect that rectal bleeding is due to one or both and that the patient is anticoagulated on Eliquis. Also CT scan findings of acute diverticulitis. At this point, I would not recommend evaluation with colonoscopy, given risk of perforation. Patient with also acute diverticulitis - doubtful will require surgical intervention. If patient should develop significant anemia and/or continued significant rectal bleeding, then may consider evaluation with colonoscopy - at this point the risks outweigh the benefits. Consideration should be given to holding anticoagulation, if medically feasible. Will follow patient with you. Thank you for allowing me to participate in this patient's medical care.
[2019-12-25 18:42] LABS: Hematocrit 37.3 % (37-47); Hemoglobin 11.7 g/dL (12.0-15.0)
[2019-12-25] MEDS: Donepezil HCl 10 MG Tablet PO (21:56)
[2019-12-25] MEDS: Acetaminophen 325 MG Tablet 650 MG PO (21:57)
[2019-12-25] MEDS: Ezetimibe 10 MG Tablet PO (21:57)
[2019-12-25 23:03] LABS: Hematocrit 33.1 % (37-47); Hemoglobin 10.2 g/dL (12.0-15.0)
[2019-12-26] VITALS (8 sets, daily range): BP systolic 112–167; BP diastolic 51–109; PULSE 70–82; RESP 16–18; TEMP 36.2–36.5; O2SAT 98–99
[2019-12-26] MEDS: Acetaminophen 325 MG Tablet 650 MG PO ×2 (04:09→10:57)
[2019-12-26] MEDS: metroNIDAZOLE 500 MG/100 ML BAG 100 MG IV (06:05)
[2019-12-26 07:31] LABS: Absolute Lymphocyte Count 0.73 X10^3/uL (0.83-4.51); Absolute Neutrophil Count 4.6 X10^3/uL (2.0-7.7); Basophil# 0.02 X10^3/uL; Basophil% 0.3 % (0-1); Eosinophil# 0.04 X10^3/uL; Eosinophils% 0.7 % (0-5); Hematocrit 32.3 % (37-47); Hemoglobin 9.9 g/dL (12.0-15.0); Lymphocyte # 0.73 X10^3/ul (4.0); Lymphocyte % 12.2 % (19-41); Mean Corp Hgb Conc 30.7 g/dL (32-36); Mean Corpuscular Hgb 27.7 pg (27.0-32.0); Mean Corpuscular Volume 90.5 fL (81-99); Mean Platelet Vol. 10.5 fl (6.2-12.0); Monocyte% 10.1 % (0-10); NRBC Flagged by Analyzer 0 % (0-5); Neutrophil # 4.55 X10^3/uL (2.7-7.7); Neutrophil % 76.4 % (47-70); Platelet Count 195 K/mm3 (150-450); RBC Distribution Width CV 16.9 % (11.6-14.6); RBC Distribution Width SD 56.4 fl (35.1-43.9); Red Blood Count 3.57 M/mm3 (4.2-5.4)
[2019-12-26 08:02] LABS: ALB/GLOB Ratio 0.8 RATIO (0.9-2.4); AST(SGOT) 18 U/L (15-37); Alanine Aminotransfer ALT/SGPT 23 U/L (13-56); Albumin, Serum 2.6 g/dL (3.2-5.0); Alkaline Phosphatase 139 U/L (45-117); Anion Gap 7 (5-15); BUN 12 mg/dL (7-18); BUN/Creat Ratio 13.1 RATIO (10-20); Calcium,Total 8.6 mg/dL (8.5-10.1); Chloride 107 mmol/L (98-107); Creatinine, Serum 0.92 mg/dL (0.55-1.02); EST Glomerular Filtration Rate 63 mL/min (>60); Est Glom Filt Rate - Afr Amer 77 mL/min (>60); Estimated Creatinine Clearance 43.03 ml/min; Globulin 3.2 g/dL (2.2-4.2); Glucose 98 mg/dL (74-106); Potassium 3.6 mmol/L (3.5-5.1); Protein, Total 5.8 g/dL (6.4-8.2); Sodium Level 139 mmol/L (136-145)
--- NOTE | 2019-12-26 08:35 | PN.SURG_ITS ---
Patient Problems: Active and Suspected Problems (Last Updated 11/03/19 @ 14:02 by Reilly Nair LIFE TEACHER, LIFE TEACHER-C) Diverticulitis (Acute) GI bleed (Acute) Dementia (Acute) Subjective: Patient denies abdominal pain, feels hungry - Physical Exam Vitals/I&O's: Vital Signs Temp Pulse Resp BP Pulse Ox 97.4 F L 71 18 112/51 L 99 12/26/19 08:25 12/26/19 08:25 12/26/19 08:25 12/26/19 08:25 12/26/19 08:25 Oxygen Delivery Method Room Air Weight: 93.4 kg Body Mass Index (BMI) 36.4 Intake and Output for Last 24 Hours 12/24/19 12/25/19 12/26/19 23:59 23:59 22:59 Intake Total 950 / 1190 440 / 440 Output Total 500 / 500 Balance 950 / 1090 -60 / -60 General: Alert, Oriented x3 Oral: Moist Mucosa Neck: Supple Lungs: Normal air movement Abdomen: Soft, Obese Laboratory Results 12/25/19 09:50: WBC 9.0, RBC 4.01 L, Hgb 11.2 L, Hct 35.9 L, MCV 89.5, MCH 27.9, MCHC 31.2 L, RDW Std Deviation 55.1 H, RDW Coeff of Patel 16.9 H, Plt Count 232, MPV 10.6, Immature Gran % (Auto) 0.400, Neut % (Auto) 82.4 H, Lymph % (Auto) 10.0 L, Harris % (Auto) 6.8, Eos % (Auto) 0.2, Baso % (Auto) 0.2, Absolute Neuts (auto) 7.4, Absolute Lymphs (auto) 0.90, Nucleated RBC % 0 12/25/19 09:50: Sodium 141, Potassium 3.9, Chloride 109 H, Carbon Dioxide 27.0, Anion Gap 5, BUN 18, Creatinine 1.21 H, Estim Creat Clear Calc 32.72, Est GFR (MDRD) Af Amer 56 L, Est GFR (MDRD) Non-Af 46 L, BUN/Creatinine Ratio 14.9, Glucose 125 H, Calcium 9.2, Total Bilirubin 0.50, AST 17, ALT 29, Alkaline Phosphatase 165 H, Total Protein 6.6, Albumin 3.1 L, Globulin 3.5, Albumin/ Globulin Ratio 0.9 12/25/19 09:50: PT 14.7, INR 1.2 12/25/19 09:50: Blood Type AB POSITIVE, Antibody Screen POSITIVE H, Antibody Identification Cancelled 12/25/19 09:50: Antibody Screen NEGATIVE, Antibody Identification COLD AGGLUTININ 12/25/19 11:09: Urine Color Yellow, Urine Clarity Clear, Urine pH 5.0, Ur Specific Joes 1.020, Urine Protein 15 H, Urine Glucose (UA) Normal, Urine Ketones Negative, Urine Occult Blood 25 H, Urine Nitrite Negative, Urine Bilirubin Negative, Urine Urobilinogen Normal, Ur Leukocyte Esterase Negative, Urine RBC 0 SEEN, Urine WBC 0-5 SEEN, Ur Squamous Epith Cells 0-5 SEEN, Urine Bacteria 0 SEEN, Urine Mucus 0 SEEN 12/25/19 18:20: Hgb 11.7 L, Hct 37.3 12/25/19 22:56: Hgb 10.2 L, Hct 33.1 L 12/26/19 05:40: WBC 6.0, RBC 3.57 L, Hgb 9.9 L, Hct 32.3 L, MCV 90.5, MCH 27.7, MCHC 30.7 L, RDW Std Deviation 56.4 H, RDW Coeff of Patel 16.9 H, Plt Count 195, MPV 10.5, Immature Gran % (Auto) 0.300, Neut % (Auto) 76.4 H, Lymph % (Auto) 12.2 L, Harris % (Auto) 10.1 H, Eos % (Auto) 0.7, Baso % (Auto) 0.3, Absolute Neuts (auto) 4.6, Absolute Lymphs (auto) 0.73 L, Nucleated RBC % 0 12/26/19 05:40: Sodium 139, Potassium 3.6, Chloride 107, Carbon Dioxide 25.0, Anion Gap 7, BUN 12, Creatinine 0.92, Estim Creat Clear Calc 43.03, Est GFR (MDRD) Af Amer 77, Est GFR (MDRD) Non-Af 63, BUN/Creatinine Ratio 13.1, Glucose 98, Calcium 8.6, Total Bilirubin 0.60, AST 18, ALT 23, Alkaline Phosphatase 139 H, Total Protein 5.8 L, Albumin 2.6 L, Globulin 3.2, Albumin/Globulin Ratio 0.8 L Current Medications Acetaminophen (Acetaminophen 325 Mg Tablet) 650 mg PO Q6H PRN PRN PRN Reason: Pain Score 1-10/Temp > 100.7 F Last Admin: 12/26/19 04:09 Dose: 650 mg Documented by: Acetaminophen (Acetaminophen 500 Mg Tablet) 500 mg PO Q6H PRN PRN PRN Reason: Pain 1-10 or Fever Al Hydroxide/Mg Hydroxide (Mag Hydrox/Al Hydrox/Simeth 30 Ml Udc) 30 ml PO Q6H PRN PRN PRN Reason: Gastric Burning Allopurinol (Allopurinol 300 Mg Tablet) 300 mg PO DAILY [facility] Donepezil HCl (Donepezil Hcl 10 Mg Tablet) 10 mg PO QHS [facility] Last Admin: 12/25/19 21:56 Dose: 10 mg Documented by: Ezetimibe (Ezetimibe 10 Mg Tablet) 10 mg PO QHS [facility] Last Admin: 12/25/19 21:57 Dose: 10 mg Documented by: Furosemide (Furosemide 40 Mg Tablet) 40 mg PO DAILY [facility] Ciprofloxacin (Cipro) 400 mg in 200 mls @ 200 mls/hr IV Q12 [facility] Last Infusion: 12/25/19 23:42 Dose: Infused Documented by: Metronidazole (Flagyl) 500 mg in 100 mls @ 100 mls/hr IV Q8 [facility] Last Admin: 12/26/19 06:05 Dose: 100 mls/hr Documented by: Pantoprazole Sodium 40 mg/ (Sodium Chloride) 110 mls @ 330 mls/hr IV Q12 [facility] Last Infusion: 12/25/19 22:24 Dose: Infused Documented by: Losartan Potassium (Losartan Potassium 25 Mg Tablet) 25 mg PO DAILY [facility] Ondansetron HCl (Ondansetron 4 Mg/2 Ml Vial) 4 mg IV Q8H PRN PRN PRN Reason: NAUSEA/VOMITING Polyethylene Glycol (Polyethylene Glycol 3350 17 Gm Packet) 17 gm PO DAILY PRN PRN PRN Reason: Constipation Potassium Chloride (Potassium Chloride 20 Meq Tablet) 20 meq PO DAILY [facility] Sodium Chloride (0.9% Saline Lock 10 Ml Syringe) 10 - 40 ml IV UD PRN PRN Reason: SALINE FLUSH Medical Necessity - Tobacco Use Smoking Status: Never smoker Tobacco Use: Non-smoker Assessment/Plan All Active Problems (Last Updated 11/03/19 @ 14:02 by Reilly Nair LIFE TEACHER, LIFE TEACHER-C) Diverticulitis (Acute) GI bleed (Acute) Dementia (Acute) Debility (Acute) Atrial fibrillation with rapid ventricular response (Acute) Nausea and vomiting (Acute) Fecal impaction (Acute) Confusion (Acute) Urinary tract infection (Acute) Sepsis (Acute) Sinus tachycardia by electrocardiogram (Acute) Acute kidney injury (Acute) Hyperkalemia (Acute) Constipation (Acute) Lichen sclerosus (Acute) Dyspnea (Acute) Orthopnea (Acute) Acute bronchitis (Resolved) Chills (Resolved) Episodic confusion (Resolved) Fall at home (Resolved) Leukocytosis (Resolved) Malaise (Resolved) Screening for intestinal cancer (Resolved) Sepsis (Resolved) Urinary tract infection (Resolved) Impression: rectal bleeding, acute diverticulitis Plan: Patient states that she has had two bowel movements without blood/bleeding she also denies any abdominal pain at this point She also feels hungry I would recommend discharge to home - appropriate treatment for diverticulitis, Hgb has not significantly decreased - no need for blood transfusions Patient to follow up with her PCP
[2019-12-26] MEDS: Losartan Potassium 25 MG Tablet PO (10:40)
[2019-12-26] MEDS: Furosemide 40 MG Tablet PO (10:41)
[2019-12-26] MEDS: Allopurinol 300 MG Tablet PO (10:42)
--- NOTE | 2019-12-26 11:15 | PCM.DC ---
- Discharge Diagnoses Current Active Problems: Current Active and Chronic Problems (Last Updated 11/03/19 @ 14:02 by Reilly Nair STAFF NURSE MIDWIFE, STAFF NURSE MIDWIFE-C) Diverticulitis (Acute) GI bleed (Acute) Dementia (Acute) Chronic kidney disease (Chronic) GERD (gastroesophageal reflux disease) (Chronic) You will use the following diet at home:: Cardiac Your food should be the consistency of: Regular Your liquids should be the consistency of: Regular/Thin Discharge Activity: Return to Normal Activity Additional Instructions: You will need a CBC (lab) at follow up, talk to your PCP to arrange this. You need to stay off of Eliquis for the time being. You will follow up with your PCP in 1 week, and at that time you will need to discuss with him when, it will be appropriate to resume eliquis. Allergies/Adverse Reactions: Allergies Penicillins Allergy (Verified 12/25/19 09:01) Hives atorvastatin [From Lipitor] Adverse Reaction (Severe, Verified 12/25/19 09:01) Elevated LFT pt states this was a long time ago; not sure about reaction Medications to take at Discharge polyethylene glycol 3350 17 gram/dose oral powder 17 g PO DAILY PRN 06/17/19 acetaminophen 500 mg tablet 500 mg PO Q6H PRN 07/23/19 Ondansetron [Zofran Odt] 4 mg PO Q8H PRN PRN #10 tab 09/10/19 Allopurinol 300 mg PO DAILY 09/11/19 Ezetimibe 10 mg PO QHS 09/11/19 Furosemide 40 mg PO DAILY 09/11/19 Potassium Chloride [K-Dur] 20 meq PO DAILY 09/11/19 donepezil 10 mg tablet 10 mg PO DAILY 11/03/19 losartan 25 mg tablet 25 mg PO DAILY #90 tab 11/03/19 Ciprofloxacin [Cipro] 500 mg PO BID #14 tab 12/26/19 Metronidazole [Flagyl] 500 mg PO TID #21 tab 12/26/19 Pantoprazole Sodium [Protonix] 40 mg PO DAILY #30 tab 12/26/19 The following prescriptions were given: Ciprofloxacin [Cipro] 500 mg PO BID #14 tab Transmission Status: Received by TRESSA [address] Metronidazole [Flagyl] 500 mg PO TID #21 tab Transmission Status: Received by [facility] Pantoprazole Sodium [Protonix] 40 mg PO DAILY #30 tab Transmission Status: Received by [facility] Primary Care Physician: Miles Reid MD [Primary Care Provider] - Please follow up with your Primary Care Physician in: 1 week Test Results: Test results from this visit will be discussed in further detail at your follow-up appointment, if applicable. Proposed Discharge Date: 12/26/19
--- NOTE | 2019-12-26 11:20 | PCM.DC.SUM ---
<Suresh Salgado - Last Filed: 12/26/19 11:20> Discharge Date and Diagnosis - Problem List Patient Problems: Active and Suspected Problems (Last Updated 11/03/19 @ 14:02 by Reilly Nair THEORETICAL PHYSICIST, THEORETICAL PHYSICIST-C) Diverticulitis (Acute) GI bleed (Acute) Dementia (Acute) Date of Admission: 12/25/19 Date of Discharge: 12/26/19 - Primary Discharge Diagnosis Acute Problems: Active Problems (Last Updated 11/03/19 @ 14:02 by Reilly Nair THEORETICAL PHYSICIST, THEORETICAL PHYSICIST-C) Diverticulitis (Acute) GI bleed (Acute) Dementia (Acute) - Secondary Discharge Diagnosis Chronic Problems: Chronic Problems (Last Updated 11/03/19 @ 14:02 by Reilly Nair THEORETICAL PHYSICIST, THEORETICAL PHYSICIST-C) Chronic diarrhea (Chronic) Helicobacter pylori infection (Chronic) Chronic kidney disease (Chronic) Mitral valve prolapse (Chronic) Body mass index (BMI) 40.0-44.9, adult (Chronic) Hypertension (Chronic) GERD (gastroesophageal reflux disease) (Chronic) Gout (Chronic) Edema (Chronic) CKD (chronic kidney disease), stage III (Chronic) Rheumatoid arthritis (Chronic) Presence of permanent cardiac pacemaker (Chronic ~04/26/19) MICRA placed and AVN ablation @ [facility] 04/26/19; Old myocardial infarction (Chronic) Paroxysmal atrial fibrillation (Chronic) Nonrheumatic mitral (valve) insufficiency (Chronic) Nonrheumatic mitral (valve) prolapse (Chronic) Recurrent pancreatitis (Chronic) Hyperlipidemia (Chronic) Familial combined hyperlipidemia (Chronic) Morbid obesity with BMI of 40.0-44.9, adult (Chronic) Benign hypertension (Chronic) Hospital Course and Treatment Imaging Results: CT/Abdomen/Pelvis W IV Cont ONLY IMPRESSION: Diverticulitis the proximal sigmoid colon. Consults: Gen surgery - Hay Operations: None Procedures: None Summary of Care Provided: Hospital course: The patient is a 74 year old F past medical history as above who presented to the ER with 4 days of rectal bleeding. She is having 2-3 bowel movements per day each with bright red blood and clots. She had recently had her Eliquis decreased from 5 twice daily to 2.5 twice daily by her PCP. In the emergency room hemoglobin was 11.2. CT showed acute diverticulitis of the sigmoid colon. He was admitted to the PCU and Eliquis was held. General surgery was consulted. She had minimal pain and nausea. Her hemoglobin was trended, initially increased to 11.7, had mild decrease to 9.9. She was treated with Cipro and Flagyl for diverticulitis. General surgery recommended no acute intervention at this time follow-up with PCP, and to complete a course of treatment for diverticulitis. She was transitioned to a 7-day course of Cipro and Flagyl. She was advised that she needs to hold Eliquis until she follows up for further instructions with her PCP. She had no further blood in her stool. She was discharged home in stable condition. She will need a CBC in 1 week. This patient was seen by Suresh Salgado PA-C under the supervision of Doctor Laird. [] Patient Problems: Active and Suspected Problems (Last Updated 11/03/19 @ 14:02 by Reilly Nair NP, THEORETICAL PHYSICIST-C) Diverticulitis (Acute) GI bleed (Acute) Dementia (Acute) - Physical Exam Vitals/I&O's: Vital Signs Temp Pulse Resp BP Pulse Ox 97.4 F L 82 18 155/109 H 99 12/26/19 08:25 12/26/19 10:39 12/26/19 10:39 12/26/19 10:39 12/26/19 08:25 Oxygen Delivery Method Room Air Weight: 205 lb 14.588 oz Body Mass Index (BMI) 36.4 Intake and Output for Last 24 Hours 12/24/19 12/25/19 12/26/19 23:59 23:59 22:59 Intake Total 950 / 1190 540 / 540 Output Total 500 / 500 Balance 950 / 1090 40 / 40 General: Alert, Oriented x3, Cooperative HEENT: Atraumatic, PERRLA, EOMI, Normocephalic Neck: Supple, No JVD, Negative Carotid Bruits Lungs: Clear to auscultation, Normal air movement Cardiovascular: Regular rate, No murmurs Abdomen: Bowel Sounds Present, Soft, Non Tender Extremities: No edema, Capillary Refill Less than 3 Seconds Skin: No rashes, No breakdown Musculoskeletal: No Tenderness to Palpation of Joints or Extremities Neurological: Cranial nerves II-XII grossly intact Psych/Mental Status: Normal Affect, Appropriate, Alert and oriented to time, place, person, mood and affect Laboratory Results 12/25/19 09:50: Antibody Screen POSITIVE H, Antibody Identification Cancelled 12/25/19 09:50: Antibody Screen NEGATIVE, Antibody Identification COLD AGGLUTININ 12/25/19 18:20: Hgb 11.7 L, Hct 37.3 12/25/19 22:56: Hgb 10.2 L, Hct 33.1 L 12/26/19 05:40: WBC 6.0, RBC 3.57 L, Hgb 9.9 L, Hct 32.3 L, MCV 90.5, MCH 27.7, MCHC 30.7 L, RDW Std Deviation 56.4 H, RDW Coeff of Patel 16.9 H, Plt Count 195, MPV 10.5, Immature Gran % (Auto) 0.300, Neut % (Auto) 76.4 H, Lymph % (Auto) 12.2 L, [place] % (Auto) 10.1 H, Eos % (Auto) 0.7, Baso % (Auto) 0.3, Absolute Neuts (auto) 4.6, Absolute Lymphs (auto) 0.73 L, Nucleated RBC % 0 12/26/19 05:40: Sodium 139, Potassium 3.6, Chloride 107, Carbon Dioxide 25.0, Anion Gap 7, BUN 12, Creatinine 0.92, Estim Creat Clear Calc 43.03, Est GFR (MDRD) Af Amer 77, Est GFR (MDRD) Non-Af 63, BUN/Creatinine Ratio 13.1, Glucose 98, Calcium 8.6, Total Bilirubin 0.60, AST 18, ALT 23, Alkaline Phosphatase 139 H, Total Protein 5.8 L, Albumin 2.6 L, Globulin 3.2, Albumin/Globulin Ratio 0.8 L Current Medications Acetaminophen (Acetaminophen 325 Mg Tablet) 650 mg PO Q6H PRN PRN PRN Reason: Pain Score 1-10/Temp > 100.7 F Last Admin: 12/26/19 10:57 Dose: 650 mg Documented by: Acetaminophen (Acetaminophen 500 Mg Tablet) 500 mg PO Q6H PRN PRN PRN Reason: Pain 1-10 or Fever Al Hydroxide/Mg Hydroxide (Mag Hydrox/Al Hydrox/Simeth 30 Ml Udc) 30 ml PO Q6H PRN PRN PRN Reason: Gastric Burning Allopurinol (Allopurinol 300 Mg Tablet) 300 mg PO DAILY [facility] Last Admin: 12/26/19 10:42 Dose: 300 mg Documented by: Donepezil HCl (Donepezil Hcl 10 Mg Tablet) 10 mg PO QHS [facility] Last Admin: 12/25/19 21:56 Dose: 10 mg Documented by: Ezetimibe (Ezetimibe 10 Mg Tablet) 10 mg PO QHS [facility] Last Admin: 12/25/19 21:57 Dose: 10 mg Documented by: Furosemide (Furosemide 40 Mg Tablet) 40 mg PO DAILY [facility] Last Admin: 12/26/19 10:41 Dose: 40 mg Documented by: Ciprofloxacin (Cipro) 400 mg in 200 mls @ 200 mls/hr IV Q12 [facility] Last Admin: 12/26/19 10:41 Dose: Not Given Documented by: Metronidazole (Flagyl) 500 mg in 100 mls @ 100 mls/hr IV Q8 [facility] Last Infusion: 12/26/19 07:10 Dose: Infused Documented by: Pantoprazole Sodium 40 mg/ (Sodium Chloride) 110 mls @ 330 mls/hr IV Q12 [facility] Last Admin: 12/26/19 10:42 Dose: Not Given Documented by: Losartan Potassium (Losartan Potassium 25 Mg Tablet) 25 mg PO DAILY [facility] Last Admin: 12/26/19 10:40 Dose: 25 mg Documented by: Ondansetron HCl (Ondansetron 4 Mg/2 Ml Vial) 4 mg IV Q8H PRN PRN PRN Reason: NAUSEA/VOMITING Polyethylene Glycol (Polyethylene Glycol 3350 17 Gm Packet) 17 gm PO DAILY PRN PRN PRN Reason: Constipation Potassium Chloride (Potassium Chloride 20 Meq Tablet) 20 meq PO DAILY [facility] Last Admin: 12/26/19 10:40 Dose: 20 meq Documented by: Sodium Chloride (0.9% Saline Lock 10 Ml Syringe) 10 - 40 ml IV UD PRN PRN Reason: SALINE FLUSH Discharge Diet: Low fat/ Low Cholesterol, 2000 mg Sodium Diet Discharge Activity: Return to Normal Activity Home Medications: Medications to take at Discharge polyethylene glycol 3350 17 gram/dose oral powder 17 g PO DAILY PRN 06/17/19 acetaminophen 500 mg tablet 500 mg PO Q6H PRN 07/23/19 Ondansetron [Zofran Odt] 4 mg PO Q8H PRN PRN #10 tab 09/10/19 Allopurinol 300 mg PO DAILY 09/11/19 Ezetimibe 10 mg PO QHS 09/11/19 Furosemide 40 mg PO DAILY 09/11/19 Potassium Chloride [K-Dur] 20 meq PO DAILY 09/11/19 donepezil 10 mg tablet 10 mg PO DAILY 11/03/19 losartan 25 mg tablet 25 mg PO DAILY #90 tab 11/03/19 Ciprofloxacin [Cipro] 500 mg PO BID #14 tab 12/26/19 Metronidazole [Flagyl] 500 mg PO TID #21 tab 12/26/19 Pantoprazole Sodium [Protonix] 40 mg PO DAILY #30 tab 12/26/19 Following Prescriptions Were Given to Patient: Ciprofloxacin [Cipro] 500 mg PO BID #14 tab Transmission Status: [facility] Metronidazole [Flagyl] 500 mg PO TID #21 tab Transmission Status: Received by [facility] Pantoprazole Sodium [Protonix] 40 mg PO DAILY #30 tab Transmission Status: Received by [address] Primary Care Physician: Miles Reid MD [Primary Care Provider] - Please follow up with your Primary Care Physician in: 1 week Disposition: Home Minutes spent on discharge:: 35 Patient Condition:: Stable Medical Necessity - Tobacco Use Smoking Status: Never smoker Tobacco Use: Non-smoker Meaningful Use Info Meaningful Use Diagnoses (Choose all that apply): None applicable <Eitan,Chevak - Last Filed: 12/26/19 16:41> Discharge Date and Diagnosis - Primary Discharge Diagnosis Acute Problems: Active Problems (Last Updated 11/03/19 @ 14:02 by Reilly Nair NP, THEORETICAL PHYSICIST-C) Diverticulitis (Acute) GI bleed (Acute) Dementia (Acute) - Secondary Discharge Diagnosis Chronic Problems: Chronic Problems (Last Updated 11/03/19 @ 14:02 by Reilly Nair NP, THEORETICAL PHYSICIST-C) Chronic diarrhea (Chronic) Helicobacter pylori infection (Chronic) Chronic kidney disease (Chronic) Mitral valve prolapse (Chronic) Body mass index (BMI) 40.0-44.9, adult (Chronic) Hypertension (Chronic) GERD (gastroesophageal reflux disease) (Chronic) Gout (Chronic) Edema (Chronic) CKD (chronic kidney disease), stage III (Chronic) Rheumatoid arthritis (Chronic) Presence of permanent cardiac pacemaker (Chronic ~04/26/19) MICRA placed and AVN ablation @ [facility] 03/02/20; Old myocardial infarction (Chronic) Paroxysmal atrial fibrillation (Chronic) Nonrheumatic mitral (valve) insufficiency (Chronic) Nonrheumatic mitral (valve) prolapse (Chronic) Recurrent pancreatitis (Chronic) Hyperlipidemia (Chronic) Familial combined hyperlipidemia (Chronic) Morbid obesity with BMI of 40.0-44.9, adult (Chronic) Benign hypertension (Chronic) Hospital Course and Treatment Summary of Care Provided: This patient was seen in conjunction with CARIN Llamas. I have independently interviewed and examined the patient and reviewed pertinent historical, laboratory, and other data. Please refer to CARIN Llamas note for his patient's presentation, findings, and recommendations. I have reviewed and his note and concur with his documentation 74-year-old female past medical history of asthma atrial fibrillation who presented with 4-day history of rectal bleeding. Patient recently had her Eliquis decreased from 5 mg twice daily to 2.5 mg twice daily. She however had persistent rectal bleeding, bright red, painless. She had a colonoscopy done 2017 that showed diverticulosis. Admitting CT scan of the abdomen and pelvis showed diverticulitis of the proximal sigmoid. She was started on Cipro and Flagyl. General surgery was consulted. No acute intervention was recommended. Patient was monitored overnight. Hemoglobin remained stable. Bloody bowel movements were noted during the hospital stay. She was discharged to complete 1 week of Cipro and Flagyl. Advised her to stay off her Eliquis and review with her primary care doctor in 1 to 2 weeks. On the day of discharge, patient was seen and examined. Denied any new complaint. No more bleeding. Denied any chest pain or dizziness or palpitation. Physical Exam: Gen: Comfortable, not pale, not jaundiced CVS:HS I +II, regular, no murmurs RESP: Clinically clear to auscultation GI: BS present and normal, soft, nontender, no palpable organs EXT:No edema - Physical Exam Vitals/I&O's: Vital Signs Temp Pulse Resp BP Pulse Ox 97.7 F L 71 18 167/78 H 98 12/26/19 11:46 12/26/19 11:46 12/26/19 11:46 12/26/19 11:46 12/26/19 11:46 Oxygen Delivery Method Room Air Weight: 93.4 kg Body Mass Index (BMI) 36.4 Intake and Output for Last 24 Hours 12/24/19 12/25/19 12/26/19 23:59 23:59 22:59 Intake Total 950 / 1190 540 / 540 Output Total 500 / 500 Balance 950 / 1090 40 / 40 Laboratory Results 12/25/19 18:20: Hgb 11.7 L, Hct 37.3 12/25/19 22:56: Hgb 10.2 L, Hct 33.1 L 12/26/19 05:40: WBC 6.0, RBC 3.57 L, Hgb 9.9 L, Hct 32.3 L, MCV 90.5, MCH 27.7, MCHC 30.7 L, RDW Std Deviation 56.4 H, RDW Coeff of Patel 16.9 H, Plt Count 195, MPV 10.5, Immature Gran % (Auto) 0.300, Neut % (Auto) 76.4 H, Lymph % (Auto) 12.2 L, [place] % (Auto) 10.1 H, Eos % (Auto) 0.7, Baso % (Auto) 0.3, Absolute Neuts (auto) 4.6, Absolute Lymphs (auto) 0.73 L, Nucleated RBC % 0 12/26/19 05:40: Sodium 139, Potassium 3.6, Chloride 107, Carbon Dioxide 25.0, Anion Gap 7, BUN 12, Creatinine 0.92, Estim Creat Clear Calc 43.03, Est GFR (MDRD) Af Amer 77, Est GFR (MDRD) Non-Af 63, BUN/Creatinine Ratio 13.1, Glucose 98, Calcium 8.6, Total Bilirubin 0.60, AST 18, ALT 23, Alkaline Phosphatase 139 H, Total Protein 5.8 L, Albumin 2.6 L, Globulin 3.2, Albumin/Globulin Ratio 0.8 L Inpatient E&M: 29365 Disch Hosp
--- NOTE | 2019-12-27 16:17 | CASEMGMT ---
HOLLIS MONTERO Discharge Follow-up Phone Call: RUBY: Parth Strata: 3 Call Date: 12/27/2019 Discharge Date: 12/26/2019 Time of Call: 1610 Admitting Diagnosis: Diverticulitis/GI bleed Discharge follow-up call placed to patient. Pt states she has been doing well since discharge and states she has not had any bleeding since returning home. States she continues to not take her Eliquis and understands she is to get this clarified during her follow-up appointment. States she has an appointment with Dr. Dawson on Friday and she has been in contact with Marika from Dr. Macdonald's office. Pt states she uses taxi's for transportation. States she also receives caregiver aide services through the [facility] program and the caregiver assists with getting groceries, etc. Pt states she has a walker that she uses to assist with ambulation. Pt states she obtained and is taking her meds as prescribed. Pt denies any further questions or concerns regarding discharge instructions. Johanne Souza RN CM
== END 2019-12-26 12:44 | disposition home or self-care (01) | DRG 379 ==
LOC: ED 12:14 → PCU 13:55
PROVIDERS: Admitting Provider Internal Medicine; Emergency Provider Emergency Medicine; PCP Family Medicine; Visit Provider Internal Medicine
DX: K57.33 Diverticulitis of large intestine without perforation or abscess with bleeding (principal); I25.10 Atherosclerotic heart disease of native coronary artery without angina pectoris; F03.90 Unspecified dementia, unspecified severity, without behavioral disturbance, psychotic disturbance, mood disturbance, and anxiety; I12.9 Hypertensive chronic kidney disease with stage 1 through stage 4 chronic kidney disease, or unspecified chronic kidney disease; N18.30 Chronic kidney disease, stage 3 unspecified; K21.9 Gastro-esophageal reflux disease without esophagitis; Z79.02 Long term (current) use of antithrombotics/antiplatelets; M06.9 Rheumatoid arthritis, unspecified; Z95.0 Presence of cardiac pacemaker; I48.0 Paroxysmal atrial fibrillation; E66.9 Obesity, unspecified; Z68.36 Body mass index [BMI] 36.0-36.9, adult; Z79.899 Other long term (current) drug therapy; Z66 Do not resuscitate
CPT/HCPCS: 36415; 74177; 80053; 81001; 85014; 85018; 85025; 85610; 86850; 86870; 86900; 86901; 93005; 97162; 97165; 99251; 99284; J7030; J7040; Q9967; A4216; G0463; J0744

== ENCOUNTER → 2019-12-29 15:41 | Outpatient (CLI) | payer MEDICARE, OTHER, SELFPAY ==
[2019-12-25 16:18] VITALS: BMI 36.4
[2019-12-29 17:31] LABS: Absolute Lymphocyte Count 1.08 X10^3/uL (0.83-4.51); Absolute Neutrophil Count 6.3 X10^3/uL (2.0-7.7); Basophil# 0.02 X10^3/uL; Basophil% 0.2 % (0-1); Eosinophil# 0.04 X10^3/uL; Eosinophils% 0.5 % (0-5); Hematocrit 36.9 % (37-47); Hemoglobin 11.5 g/dL (12.0-15.0); Lymphocyte # 1.08 X10^3/ul (4.0); Lymphocyte % 13.1 % (19-41); Mean Corp Hgb Conc 31.2 g/dL (32-36); Mean Platelet Vol. 10.7 fl (6.2-12.0); Monocyte# 0.75 X10^3/uL; Monocyte% 9.1 % (0-10); NRBC Flagged by Analyzer 0 % (0-5); Neutrophil # 6.31 X10^3/uL (2.7-7.7); Neutrophil % 76.5 % (47-70); Platelet Count 302 K/mm3 (150-450); RBC Distribution Width CV 16.9 % (11.6-14.6); RBC Distribution Width SD 55.4 fl (35.1-43.9); White Blood Count 8.3 K/mm3 (4.4-11.0)
== END ==
PROVIDERS: PCP Family Medicine; Referring Provider Family Medicine; Visit Provider Family Medicine
DX: K57.92 Diverticulitis of intestine, part unspecified, without perforation or abscess without bleeding (principal)
CPT/HCPCS: 36415; 85025

== ENCOUNTER → 2020-04-03 09:07 | Outpatient (CLI) | payer MEDICARE, OTHER, SELFPAY ==
[2019-12-25 16:18] VITALS: BMI 36.4
[2020-04-03 12:49] LABS: AST(SGOT) 25 U/L (15-37); Alanine Aminotransfer ALT/SGPT 32 U/L (13-56); Albumin, Serum 3.2 g/dL (3.2-5.0); Alkaline Phosphatase 275 U/L (45-117); Anion Gap 6 (5-15); BUN 15 mg/dL (7-18); Bilirubin, Direct 0.15 mg/dL (0.00-0.30); Calcium,Total 9.7 mg/dL (8.5-10.1); Chloride 106 mmol/L (98-107); Cholesterol 152 mg/dL (200); EST Glomerular Filtration Rate 57 mL/min (>60); Est Glom Filt Rate - Afr Amer 69 mL/min (>60); Globulin 4.4 g/dL (2.2-4.2); Glucose 112 mg/dL (74-106); High Density Lipoprotein 49 mg/dL; Potassium 3.9 mmol/L (3.5-5.1); Protein, Total 7.6 g/dL (6.4-8.2); Sodium Level 138 mmol/L (136-145); Triglycerides 141 mg/dL; Very Low Density Lipoprotein 28 mg/dL (5-40)
== END ==
PROVIDERS: PCP Family Medicine; Referring Provider Internal Medicine Cardiovascular Disease; Visit Provider Internal Medicine Cardiovascular Disease
DX: E78.5 Hyperlipidemia, unspecified (principal); E87.5 Hyperkalemia; N18.30 Chronic kidney disease, stage 3 unspecified
CPT/HCPCS: 36415; 80048; 80061; 80076

== ENCOUNTER 2020-09-28 13:38 | Emergency (ER) | payer OTHER, MEDICARE, SELFPAY ==
[2020-08-23 13:17] VITALS: BMI 36.3
[2020-09-28 13:40] VITALS: BP 125/53; PULSE 83; RESP 16; TEMP 36.6; O2SAT 97; BMI 38.7
--- NOTE | 2020-09-28 13:57 | EX.ED.UPPERE ---
HPI History of Present Illness Chief Complaint: Disclocation Detail of Chief Complaint: Right index finger several days ago. Informant: patient Occured/Mechanism Mechanism/Context: Yes injury Onset/Context/Timing Onset: Days Context: Sudden Onset Timing: Continuous Quality of Pain: Sharp Current Severity: Mild Maximum Severity: Mild Associated Symptoms Associated Symptoms: Negative for Parasthesia and Weakness Narrative Narrative: 74-year-old female history of arthritis. She is right-hand dominant. States she was having a injection of her neck done and injured her right index finger. Is been going on now for several days. She had x-ray obtained at the [facility] care facility she stays at and they believe her right index finger is dislocated at the PIP. She does have a history of being on Eliquis for A. fib, pacemaker and arthritis. She denies any other complaints. Prior similar symptoms: No Recent Illness/Hospitalization: No [facility], [facility] Medical History Benign hypertension Dementia Diverticulitis Familial combined hyperlipidemia Fibromyalgia GERD (gastroesophageal reflux disease) Gout Gout History of cardioversion (~04/23/19) Hyperlipidemia Hypokalemia Mitral valve prolapse Morbid obesity with BMI of 40.0-44.9, adult Nonrheumatic mitral (valve) insufficiency Nonrheumatic mitral (valve) prolapse Old myocardial infarction Paroxysmal atrial fibrillation Radiculopathy Recurrent pancreatitis Rheumatoid arthritis Rheumatoid arthritis Screening for intestinal cancer Spinal stenosis of lumbar region Home Medications polyethylene glycol 3350 17 gram/dose oral powder 17 g PO DAILY PRN 06/17/19 [History Last Taken 09/11/19 08:00] acetaminophen 500 mg tablet 500 mg PO Q6H PRN 07/23/19 [History Last Taken 09/11/19 07:00] allopurinol 300 mg PO DAILY 09/11/19 [History Last Taken 12/24/19 08:00] donepezil 10 mg tablet 10 mg PO DAILY 11/03/19 [History Last Taken 12/24/19 08:00] pantoprazole 40 mg PO DAILY #30 tab 12/26/19 [Rx Last Taken Unknown] ezetimibe 10 mg tablet 10 mg PO QHS #90 tab 04/04/20 [Rx Last Taken Unknown] losartan 25 mg tablet 25 mg PO DAILY #90 tab 06/09/20 [Rx Last Taken Unknown] potassium chloride 20 mEq tablet,extended release(part/cryst) 20 meq PO DAILY #90 tablet 06/09/20 [Rx Last Taken Unknown] apixaban 2.5 mg tablet 2.5 mg PO BID #60 tablet 06/12/20 [Rx Last Taken Unknown] furosemide 20 mg tablet 20 mg PO DAILY #30 tablet 06/12/20 [Rx Last Taken Unknown] bisacodyl 10 mg rectal suppository 10 mg MO DAILY PRN 08/23/20 [History Last Taken Unknown] magnesium hydroxide 400 mg/5 mL oral suspension 30 ml PO DAILY PRN ml 08/23/20 [History Last Taken Unknown] nitroglycerin 0.4 mg sublingual tablet 0.4 mg SUBLINGUAL Q5-15M PRN 08/23/20 [History Last Taken Unknown] oxycodone-acetaminophen 5 mg-325 mg tablet 1 tab PO TID 08/23/20 [History Last Taken Unknown] Allergy/AdvReac Type Severity Reaction Status Date / Time levofloxacin [From Levaquin] Allergy PT UNSURE Verified 09/28/20 13:40 OF REACTION Penicillins Allergy Hives Verified 09/28/20 13:39 tolterodine [From Detrol] Allergy PT UNSURE Verified 09/28/20 13:40 OF REACTION atorvastatin [From Lipitor] AdvReac Severe Elevated Verified 09/28/20 13:39 LFT Family History Sister Hypertension Other Arthritis Cancer Diabetes Surgical History H/O endoscopic retrograde cholangiopancreatography History of appendectomy History of back surgery History of cardiac radiofrequency ablation (~10/2008) History of cholecystectomy History of left knee replacement S/P lumbar fusion Social History Smoking Status: Never smoker alcohol intake: never substance use type: does not use what type of physical activity do you participate in: none seatbelt use: always do you feel safe at home: Yes ROS ROS ED ROS Narrative Denies recent illness. Review of Systems ROS Unobtainable: Denies due to encephalopathy Constitutional Constitutional ED: Denies frequent falls Eyes Eyes: Denies change in vision ENT ENT ED: Denies ear pain or sore throat Cardiovascular Cardiovascular: Denies chest pain Respiratory/Chest Respiratory/Chest: Denies cough or dyspnea Gastrointestinal Gastrointestinal: Denies abdominal pain, diarrhea, nausea or vomiting Genitourinary Genitourinary ED: Denies dysuria or hematuria Musculoskeletal Musculoskeletal: Denies myalgias Integumentary Denies abscess or rash Neurologic Neurologic: Denies headache(s) Psychiatric Psychiatric: Denies depression Endocrine Endocrinology: Denies polyuria Hematologic/Lymphatic Hematologic/Lymphatic: Denies easy bruising Allergic/Immunologic Allergic/Immunologic ED: Denies urticaria EXAM Physical Exam Narrative Exam Narrative: 74-year-old female no acute distress. Lungs are clear. Heart regular rate and rhythm. Abdomen soft nontender. Right hand she has tenderness swelling of the right index finger primarily at the PIP with limited range of motion. She can flex extend at the MCP. She has chronic arthritic changes. But states she normally has more range of motion than this. Appears to be tender at the PIP. The other digits of the right hand are unremarkable. No deformity nontender. Const Vital Signs: 09/28/20 13:40 Temperature 97.8 F Temperature Source Temporal Pulse Rate 83 Respiratory Rate 16 Blood Pressure 125/53 H Blood Pressure Mean 77 Pulse Ox 97 Oxygen Delivery Method Room Air Positive well nourished and well developed; Negative for obese, cachectic or unkempt General Appearance ED: well developed and NAD; Negative for unkempt or cachectic Nutritional Appearance: Negative for cachectic or obese HEENT Reports moist mucous membranes normocephalic and atraumatic; Negative for trauma or tenderness Eyes PERRL and EOMs intact bilaterally Neck full ROM and supple General: Negative for tenderness Chest Wall inspection of chest normal and palpation of chest normal Resp normal respiratory effort and clear to auscultation bilaterally Cardio regular rate, regular rhythm, S1 normal heart sound, S2 normal heart sound and no murmurs GI non-tender and non-distended Auscultation: normoactive bowel sounds Palpation: soft; Negative for tender Extremity normal to inspection Extremity Narrative: Except right index finger has decreased range of motion at the PIP. Mild tenderness and deformity. Other digits of the right hand are nontender without deformity. And normal range of motion. Neuro oriented x3 and no focal motor deficits Sensorium / Orientation: alert, oriented to person, oriented to place and oriented to time Psych mental status grossly normal Appearance: Negative for unkempt Skin Lesions: no lesions Rashes: no rashes MDM MDM MDM Narrative Medical decision making narrative: X-ray of the right index finger being obtained. After discussing with the patient I attempted reduction of the right index finger PIP joint. I can get it to straighten out but it immediately went right back to the ulnar deviation. I think this is chronic subluxation from arthritis and not an acute dislocation. She will be discharged home with a splint. Ice and elevate. She is already on pain medications and Tylenol. She is on blood thinners she really cannot use anti-inflammatories. Radiography Diagnostic Testing: Patient's right index finger x-ray 2 views shows significant degenerative arthritis at the proximal interphalangeal joint. And subluxation. I discussed this with the patient I think is all chronic and not acute dislocation. She states this is typically the way her finger locks it just hurts more. 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, Subluxation Instructions: Osteoarthritis: Coping with Pain Prescriptions: No Action polyethylene glycol 3350 [Miralax] 17 gram/dose powder 17 g PO DAILY PRN (Reason: Constipation) RF: 0 acetaminophen [Tylenol Extra Strength] 500 mg tablet 500 mg PO Q6H PRN (Reason: Pain Or Fever) RF: 0 donepezil [Aricept] 10 mg tablet 10 mg PO DAILY RF: 0 bisacodyl 10 mg suppository 10 mg MO DAILY PRNRF: 0 magnesium hydroxide [Milk of Magnesia] 400 mg/5 mL suspension 30 ml PO DAILY PRNRF: 0 nitroglycerin 0.4 mg tablet, sublingual 0.4 mg sublingual Q5-15M PRNRF: 0 oxycodone-acetaminophen [Percocet] 5-325 mg tablet 1 tab PO TID RF: 0 allopurinol 300 MG tablet 300 mg PO DAILY RF: 0 pantoprazole 40 MG tablet 40 mg PO DAILY Qty: 30 RF: 0 ezetimibe 10 mg tablet 10 mg PO QHS Qty: 90 RF: 3 losartan 25 mg tablet 25 mg PO DAILY Qty: 90 RF: 3 potassium chloride 20 mEq tablet,ER particles/crystals 20 meq PO DAILY Qty: 90 RF: 3 Eliquis 2.5 mg tablet 2.5 mg PO BID Qty: 60 RF: 11 Hold Instructions: gi bleed furosemide 20 mg tablet 20 mg PO DAILY Qty: 30 RF: 11 Primary Care Provider: Miles Reid Referrals: Miles Reid MD [Primary Care Provider] - 10-14 Days if not better Activity Restrictions/Additional Instructions: I think this is from chronic arthritis to your right index finger. I do not think it is dislocated I think it is just subluxed from the chronic arthritis. Ice and elevate. To decrease pain and swelling. You may try heat also that may help with the pain. Continue your pain medications and your Tylenol. Use your splint as needed. Follow-up with your doctor as needed. Disposition Disposition: Home, Self Care
--- NOTE | 2020-09-28 13:59 | RAD_ITS ---
INDICATION: dislocated pip ??, Right index finger EXAMINATION/TECHNIQUE: X-RAY - RIGHT HAND XR Fingers Min 2 Views 3 VIEWS COMPARISON: None. FINDINGS: Studies of the right index finger in 3 projections shows medial subluxation of the middle phalanx in relationship to the proximal phalanx of the index finger. No obvious fractures are seen. Mild diffuse osteoporosis is identified RAD/Finger(s) Min 2 Views IMPRESSION: There is medial subluxation of the middle phalanx in relationship to the proximal phalanx of the index finger. Electronically Signed: Reilly Germain DO at 14:21 EDT Tel , Service support ,
[2020-09-28 15:43] VITALS: BP 139/73; PULSE 73; RESP 16
--- NOTE | 2020-09-28 16:01 | ED.RN ---
called report to andrew at [facility] on the discharge of pt
== END 2020-09-28 16:32 | disposition home or self-care (01) ==
PROVIDERS: Emergency Provider Emergency Medicine; PCP Family Medicine
DX: M19.041 Primary osteoarthritis, right hand (principal); M24.341 Pathological dislocation of right hand, not elsewhere classified; I10 Essential (primary) hypertension; F03.90 Unspecified dementia, unspecified severity, without behavioral disturbance, psychotic disturbance, mood disturbance, and anxiety; E78.2 Mixed hyperlipidemia; K21.9 Gastro-esophageal reflux disease without esophagitis; I48.0 Paroxysmal atrial fibrillation; M06.9 Rheumatoid arthritis, unspecified; Z79.02 Long term (current) use of antithrombotics/antiplatelets; Z79.899 Other long term (current) drug therapy
CPT/HCPCS: 26770; 73140; 99284

== ENCOUNTER → 2022-09-13 | Outpatient (CLI) | payer MEDICARE, OTHER, SELFPAY ==
--- NOTE | 2022-09-13 12:53 | ART_ITS ---
Reason For Study: Left foot ulcer Procedure A bilateral lower extremity continuous wave Doppler with analog waveform analysis,segmental pressures,and ankle brachial indexes without exercise. Left Segmental Pressures Left brachial= 111mmHg. Left posterior tibial artery = 126mmHg. Left dorsalis pedis artery = >254mmHg. The left dorsalis pedis waveforms are triphasic. The left posterior tibial artery waveforms are triphasic. Right Segmental Pressures Right brachial= 102mmHg. Right posterior tibial artery = 124mmHg. Right dorsalis pedis artery = >254mmHg. Right digit = 68 mmHg. The right dorsalis pedis waveforms are triphasic. The right posterior tibial artery waveforms are triphasic. Indices The right ankle brachial index by the dorsalis pedis is NC. The right ankle brachial index by the posterior tibial artery is 1.12. The right digital-brachial index is 0.61. The left ankle brachial index by the dorsalis pedis is NC. The left ankle brachial index by the posterior tibial artery is 1.14. VL/Lower Ext Art Exam w/o Exercis Interpretation Summary Right VANESA 1.12, normal. Doppler/PVR waveforms of the right leg normal at rest. TBI and digit waveforms diminished, pedal/digit disease vs spasm. Left VANESA 1.14, normal. Doppler/PVR/digit waveforms of the left leg normal at re st. Ordering Physician: Mitch Fountain Referring Physician: Miles Reid Performed By: Francia Morin RVT
== END | disposition home or self-care (01) ==
LOC: CVS 12:51
PROVIDERS: PCP Family Medicine; Referring Provider Surgery Trauma Surgery; Visit Provider Surgery Trauma Surgery
DX: I70.25 Atherosclerosis of native arteries of other extremities with ulceration (principal)
CPT/HCPCS: 93923

== ENCOUNTER 2022-10-25 11:32 | Observation (INO) | payer MEDICARE, OTHER, MEDICAID, SELFPAY ==
[2022-10-25] VITALS (10 sets, daily range): BP systolic 96–132; BP diastolic 45–68; PULSE 70–94; RESP 16–18; TEMP 36.2–36.7; O2SAT 96–100; BMI 21.9
--- NOTE | 2022-10-25 | BON_PTH ---
PATIENT: ANNETTE BOSS LOC: MS3 U#:[id number] AGE/SX: 76/F ROOM: [facility] [place] RE10/25/[address]: JEFF BynumM : 1945 BED: 1 DIS: 10/26/2022 SPEC #: [id number] RECD: 10/25/22 17:08 STATUS: LAUREN ARMANDO #: [id number] JUN: 10/25/22 00:[address]: Weston Mancuso DEPT: SURGICAL PATHOLOGY RECD BY: Joesph Raza ENTERED: 10/29/22 09:56 SP TYPE: Bone OTHR DR: DO Dr. Miles Avila MD Tissues: Bone of foot, NOS Procedures: Decalcification bone/plaque Surgery Specimen Level IV HEADER OPERATION: Partial left second toe amputation with hallux wound debridement PRE-OP DIAGNOSIS: Osteomyelitis left second toe TISSUE SUBMITTED: Left second toe MICROSCOPIC DIAGNOSIS Left second toe, amputation: Skin with chronic inflammation. Bone with focal reactive and reparative change consistent with hallux deformity. AM:conchis 11/01/2022 MICROSCOPIC DESCRIPTION Slides are reviewed. GROSS DESCRIPTION Received in fixative is one container labeled with the patient's name and designated left second toe. The specimen consists of a portion of toe measuring 2.5 x 1.5 x 1.5 cm. No obvious area of ulceration is noted. The nail appears atrophic. Manager Architectural sections are submitted in two cassettes after decalcification. / BYRON:conchis 10/29/2022 TC:5 CPT: 08689, 71829
[2022-10-25] MEDS: Lactated Ringers 1,000 ML 15 ML IV (10:20)
[2022-10-25] MEDS: Vancomycin IV 1,000 MG/200 ML BAG 200 MG IV (10:20)
[2022-10-25] MEDS: Bupivacaine Mpf 0.5% 30 ML VIAL (11:05)
--- NOTE | 2022-10-25 11:44 | OP.PCM_ITS ---
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 Patient induced under MAC anesthesia. Well-padded left ankle tourniquet applied. Patient position without any external rotation left lower extremity. All osseous prominences offloaded prevent any compression neuropraxia. Preoperatively Lozano blocks performed to the second and first digit using 20 cc 0.5% Marcaine plain. Left lower extremity scrubbed prepped draped using typical aseptic fashion. Once cleared by anesthesia tourniquet was inflated to 250 mmHg. [place] incision was made using a #15 blade just proximal to the proximal interphalangeal joint in the left second digit was amputated initially at disarticulating on the proximal interphalangeal joint and then additional resection of the proximal phalanx was performed using bone cutting forceps. This [place] incision was examined and cleaned and noted to be able to close under minimal tension incisional site was flushed with copious amounts normal s terile saline and closed with simple interrupted 4-0 Prolene. Tourniquet was let down prior to incisional closure and hemostasis was acquired using electrocautery. Left second toe was divided up and sent for soft tissue culture, bone culture and bone and tissue pathology. Excisional debridement of left hallux wound was performed. Predebridement the wound was 0.5 x 0.7 cm x 0.2 cm postdebridement the wound was 0.8 x 0.6 x 0.4 cm. Wound was excisionally debrided down to including level of subcutaneous tissue using a curette. Wound base was noted to be healthy granular bleeding. No overt signs of infection. No exposed tendon or bone. Hemostasis obtained with light compression. Patient tolerated procedure well. Both sites were dressed with Betadine Adaptic 4 x 4's ABD pads Kerlix and a lightly wrapped Bgig bandage Patient was transferred to PACU vital signs stable vascular status intact all digits for further monitoring prior to transfer to floor. Patient will be kept for 23-hour observation and sent back to her nursing facility. Patient can weight-bear in surgical shoe on her heel assisted by a walker. No complication No abnormal findings, healthy bleeding noted suggestive of good healing potential Surgeon: Weston Mancuso special services director: None (everton simmons, JEFFM PGYII) Type of Anesthesia: MAC Special Medications: 30cc 0.5% bupivicaine plain Specimen's removed: Left 2nd toe bone and tissue culture Left 2nd toe pathology Drains: none Estimated Blood Loss (mL): minimal Fluids Replaced: none
--- NOTE | 2022-10-25 12:10 | RAD_ITS ---
STUDY: X-RAY - LEFT FOOT CLINICAL: Female, 76 years old. Post op TECHNIQUE: 2 view(s) of the foot. COMPARISON: None. FINDINGS: There is demineralization of the rear and midfoot bones. Normal visualized subtalar, talonavicular, calcaneocuboid, tarsal and tarsometatarsal articulations. Normal metatarsi. Normal metatarsophalangeal joint of the great toe. Normal tibial and fibular sesamoid bones. Normal interphalangeal joint of the great toe. Normal phalanges of the great toe. Normal second through fifth metatarsophalangeal joints. Normal interphalangeal joints and phalanges of the third through fifth toes. There is amputation of the second toe at the shaft of the proximal phalanx. There is postoperative change in the soft tissues. There are vascular calcifications. RAD/Foot 2 Views IMPRESSION: Amputation of the phalanges of the second toe. Electronically Signed: Bayron Sargent MD at 13:37 EDT ,
[2022-10-25] MEDS: Acetaminophen 500 MG Tablet PO ×2 (14:10→17:14)
[2022-10-25] MEDS: oxyCODONE 5 MG Tablet PO (14:10)
[2022-10-25] MEDS: Doxycycline 100 MG CAPSULE 200 MG PO (17:15)
--- NOTE | 2022-10-25 18:24 | PCM.PN.HOSP ---
Subjective Subjective 76-year-old female presents to the hospital for an elective second toe partial amputation with the wound debridement due to osteomyelitis. Baseline health is stable, no changes recently in her medications. Objective Data Objective Data Vital Signs: Vital Signs Temp Pulse Resp BP Pulse Ox O2 Del Method O2 Flow Rate 97.5 F L 71 18 96/52 L 98 Room Air 2 10/25/22 16:50 10/25/22 16:50 10/25/22 16:50 10/25/22 16:50 10/25/22 16:50 10/25/22 16:50 10/25/22 11:44 Oxygen Flow Rate (L/min) 2 Oxygen Delivery Method Room Air Weight: 157 lb Body Mass Index (BMI) 21.9 Intake & Output: Intake and Output for Last 24 Hours 10/24/22 10/25/22 10/26/22 03:59 03:59 03:59 Intake Total 200 / 200 Balance 200 / 200 Lab / Micro Data Micro: Microbiology 10/25/22 12:01 Tissue - 2nd Toe Gram Stain - Final 10/25/22 12:01 Bone - 2nd Toe Gram Stain - Final Radiography Diagnostic Testing: Radiology Impression Foot X-Ray 10/25/22 12:10 IMPRESSION: Amputation of the phalanges of the second toe. Electronically Signed: Bayron Sargent MD at 13:37 EDT , Physical Exam Narrative General: Alert, Oriented x3, Cooperative, No apparent distress HEENT: Atraumatic, PERRLA, EOMI, Normocephalic Oral: Moist Mucosa Neck: Supple, No JVD Lungs: Clear to auscultation, Normal air movement, No rhonchi, No wheeze, No rales Cardiovascular: Regular rate, Regular Rhythm, Normal S1, Normal S2, No murmurs Abdomen: Soft, Non Tender, Non-Distended, No Hepato-splenomegaly Extremities: No edema, Capillary Refill Less than 3 Seconds Skin: Dressing CDI, in a boot Musculoskeletal: No Tenderness to Palpation of Joints or Extremities Neurological: Cranial nerves II-XII grossly intact, Motor Exam 5/5 strength throughout, Sensory exam intact to light touch and pain Psych/Mental Status: Normal Affect, Appropriate Assessment & Plan Assessment/Plan (1) Osteomyelitis of foot, left, acute: (2) Chronic ulcer of toe of left foot: (3) Status post amputation of toe of left foot: PLAN: Plan 1. Status post amputation of left second toe secondary to osteomyelitis and chronic ulcer of the left foot ? Pain management from primary ? Wound care ? Restart Eliquis when able ? Continue with antibiotics 2. HTN/HLD/A-fib status post AV node ablation with pacemaker placement ? Can resume Eliquis when okay with surgery ? Can you with her home blood pressure medications once her blood pressures more stable, currently 95 systolic after surgery ? We will hold Lasix, will obtain a BMP and a CBC in the morning to monitor renal function 3. GERD ? Stable ? Continue with PPI Charges/Coding Visit Charges Office Visits / Consults: 72307 OV L3 New
[2022-10-25] MEDS: Donepezil HCl 10 MG Tablet PO (20:41)
[2022-10-25] MEDS: Doxycycline 100 MG CAPSULE PO (20:41)
[2022-10-25] MEDS: Allopurinol 300 MG Tablet 150 MG PO (20:41)
[2022-10-25] MEDS: Ezetimibe 10 MG Tablet PO (20:42)
[2022-10-25] MEDS: Menthol/Lanolin/Calamine/Znox 113 GM Tube 1 APPLIC TOPICAL (21:40)
[2022-10-25] MEDS: Acetaminophen 500 MG Tablet 1000 MG PO (21:43)
[2022-10-26 00:31] VITALS: BP 113/64; PULSE 71; RESP 16; TEMP 36.6; O2SAT 96
[2022-10-26 04:44] VITALS: BP 115/61; PULSE 74; RESP 16; TEMP 36.8; O2SAT 95
[2022-10-26 04:49] LABS: Absolute Lymphocyte Count 1.53 X10^3/uL (0.83-4.51); Absolute Neutrophil Count 4.7 X10^3/uL (2.0-7.7); Basophil# 0.02 X10^3/uL; Basophil% 0.3 % (0-1); Eosinophil# 0.19 X10^3/uL; Eosinophils% 2.6 % (0-5); Hematocrit 35.5 % (37-47); Hemoglobin 10.6 g/dL (12.0-15.0); Lymphocyte # 1.53 X10^3/ul (0.83-4.51); Lymphocyte % 21.3 % (19-41); Mean Corp Hgb Conc 29.9 g/dL (32-36); Mean Corpuscular Hgb 25.5 pg (27.0-32.0); Mean Corpuscular Volume 85.3 fL (81-99); Mean Platelet Vol. 10.7 fl (6.2-12.0); Monocyte# 0.69 X10^3/uL; Monocyte% 9.6 % (0-10); NRBC Flagged by Analyzer 0 % (0-5); Neutrophil # 4.72 X10^3/uL (2.7-7.7); Neutrophil % 65.9 % (47-70); Platelet Count 189 K/mm3 (150-450); RBC Distribution Width CV 18.3 % (11.6-14.6); RBC Distribution Width SD 57.4 fl (35.1-43.9); Red Blood Count 4.16 M/mm3 (4.2-5.4); White Blood Count 7.2 K/mm3 (4.4-11.0)
[2022-10-26] MEDS: oxyCODONE 5 MG Tablet PO ×2 (04:58→13:09)
[2022-10-26 05:15] LABS: Anion Gap 2 (5-15); BUN 18 mg/dL (7-18); BUN/Creat Ratio 27.8 RATIO (10-20); Calcium,Total 8.9 mg/dL (8.5-10.1); Chloride 111 mmol/L (98-107); Creatinine, Serum 0.65 mg/dL (0.55-1.02); EST Glomerular Filtration Rate 94 mL/min (>60); Est Glom Filt Rate - Afr Amer 114 mL/min (>60); Estimated Creatinine Clearance 51.82 ml/min; Glucose 91 mg/dL (74-106); Potassium 4.1 mmol/L (3.5-5.1); Sodium Level 141 mmol/L (136-145)
[2022-10-26 08:43] VITALS: BP 134/77; PULSE 80; RESP 18; TEMP 36.8; O2SAT 98
[2022-10-26] MEDS: Menthol/Lanolin/Calamine/Znox 113 GM Tube 1 APPLIC TOPICAL (10:36)
[2022-10-26] MEDS: Doxycycline 100 MG CAPSULE PO (10:36)
[2022-10-26] MEDS: Acetaminophen 500 MG Tablet 1000 MG PO (10:36)
[2022-10-26] MEDS: Pantoprazole Sodium 40 MG Tablet PO (10:37)
[2022-10-26] MEDS: APIXABAN 5 MG TABLET PO (10:37)
[2022-10-26] MEDS: Losartan Potassium 25 MG Tablet PO (10:38)
--- NOTE | 2022-10-26 11:31 | PN.HOSP_ITS ---
Reason for Visit Reason for Visit: Diagnoses Unspecified atherosclerosis of [place] arteries of extremities, unspecified extr emity (10/25/22) Non-pressure chronic ulcer of other part of left foot with unspecified severity (10/25/22) Other acute osteomyelitis, left ankle and foot (10/25/22) Acquired absence of other left toe(s) (10/25/22) Objective Data Objective Data Vital Signs: Vital Signs Temp Pulse Resp BP Pulse Ox O2 Del Method O2 Flow Rate 36.8 C 80 18 134/77 H 98 Room Air 2 10/26/22 08:43 10/26/22 08:43 10/26/22 08:43 10/26/22 08:43 10/26/22 08:43 10/26/22 08:43 10/25/22 11:44 Oxygen Flow Rate (L/min) 2 Oxygen Delivery Method Room Air Weight: 71.214 kg Body Mass Index (BMI) 21.9 Intake & Output: Intake and Output for Last 24 Hours 10/24/22 10/25/22 10/26/22 23:59 23:59 23:59 Intake Total 440 / 640 522 / 522 Output Total 150 / 150 Balance 440 / 640 372 / 372 Lab / Micro Data 10/26/22 03:56 10/26/22 03:56 Labs: Laboratory Results - last 24 hr 10/26/22 03:56: WBC 7.2, RBC 4.16 L, Hgb 10.6 L, Hct 35.5 L, MCV 85.3, MCH 25.5 L, MCHC 29.9 L, RDW Std Deviation 57.4 H, RDW Coeff of Patel 18.3 H, Plt Count 189, MPV 10.7, Immature Gran % (Auto) 0.300, Neut % (Auto) 65.9, Lymph % (Auto) 21.3, Titus % (Auto) 9.6, Eos % (Auto) 2.6, Baso % (Auto) 0.3, Absolute Neuts (auto) 4.7, Absolute Lymphs (auto) 1.53, Nucleated RBC % 0, Sodium 141, Potassium 4.1, Chloride 111 H, Carbon Dioxide 28.0, Anion Gap 2 L, BUN 18, Creatinine 0.65, Estim Creat Clear Calc 51.82, Est GFR (MDRD) Af Amer 114, Est GFR (MDRD) Non-Af 94, BUN/Creatinine Ratio 27.8 H, Glucose 91, Calcium 8.9 Micro: Microbiology 10/25/22 12:01 Tissue - 2nd Toe Gram Stain - Final 10/25/22 12:01 Tissue - 2nd Toe Wound Culture - Preliminary Staphylococcus aureus 10/25/22 12:01 Bone - 2nd Toe Gram Stain - Final 10/25/22 12:01 Bone - 2nd Toe Wound Culture - Preliminary Staphylococcus aureus 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 Electronically Signed: Bayron Sargent MD at 13:37 EDT Reading Location ID and State: [facility] / [place] , Service support , Assessment & Plan Assessment/Plan (1) Osteomyelitis of foot, left, acute: PLAN: Status post amputation of left second toe secondary to osteomyelitis and chronic ulcer of the left foot Abx per podiatry (2) Chronic ulcer of toe of left foot: QUALIFIERS: Non-pressure ulcer stage: with fat layer exposed Qualified Code(s): L97.522 - Non-pressure chronic ulcer of other part of left foot with fat layer exposed PLAN: s/p debridement down to SQ tissue mgmt per podiatry (3) Chronic pain: QUALIFIERS: Chronic pain type: chronic pain syndrome Qualified Code(s): G89.4 - Chronic pain syndrome PLAN: has buprenoprhine and [place] on APR I reviewed her OARRS, and there no narcotics on for the past year. However, I spoke with RN at the [facility] (where the patient resides) and she confirmed that the patient does indeed take those medications. PLAN: Plan Chronic stable conditions: * HTN: stable. continue furosemide, losartan * HLD: continue ezetimibe * A-fib status post AV node ablation with pacemaker placement. Continue apixaban. * GERD? Stable? Continue with PPI Medically stable for discharge. Charges/Coding Visit Charges Inpatient E&M: 86929 Subs Hosp L2
--- NOTE | 2022-10-26 12:42 | PCM.PN.SRG ---
Subjective Subjective Mrs. Gilbert is a 85-year-old female who is status post partial second digit amputation to left lower extremity as well as excisional debridement of the left hallux. Patient was seen today at bedside for dressing change. She was recovering well with complaints of minimal pain to the left foot. Her pain is controlled with oral pain medication. She denies any nausea vomiting fever chills diarrhea shortness of breath or chest pain. No other pedal complaints at this time. Objective Data Objective Data Vital Signs: Vital Signs Temp Pulse Resp BP Pulse Ox O2 Del Method O2 Flow Rate 98.2 F 80 18 134/77 H 98 Room Air 2 10/26/22 08:43 10/26/22 08:43 10/26/22 08:43 10/26/22 08:43 10/26/22 08:43 10/26/22 08:43 10/25/22 11:44 Oxygen Flow Rate (L/min) 2 Oxygen Delivery Method Room Air Weight: 71.214 kg Body Mass Index (BMI) 21.9 Intake & Output: Intake and Output for Last 24 Hours 10/24/22 10/25/22 10/26/22 23:59 23:59 23:59 Intake Total 440 / 640 1022 / 1022 Output Total 450 / 450 Balance 440 / 640 572 / 572 Lab / Micro Data Attestation: I reviewed the patient's lab results. 10/26/22 03:56 10/26/22 03:56 Labs: Laboratory Results - last 24 hr 10/26/22 03:56: WBC 7.2, RBC 4.16 L, Hgb 10.6 L, Hct 35.5 L, MCV 85.3, MCH 25.5 L, MCHC 29.9 L, RDW Std Deviation 57.4 H, RDW Coeff of Patel 18.3 H, Plt Count 189, MPV 10.7, Immature Gran % (Auto) 0.300, Neut % (Auto) 65.9, Lymph % (Auto) 21.3, [place] % (Auto) 9.6, Eos % (Auto) 2.6, Baso % (Auto) 0.3, Absolute Neuts (auto) 4.7, Absolute Lymphs (auto) 1.53, Nucleated RBC % 0, Sodium 141, Potassium 4.1, Chloride 111 H, Carbon Dioxide 28.0, Anion Gap 2 L, BUN 18, Creatinine 0.65, Estim Creat Clear Calc 51.82, Est GFR (MDRD) Af Amer 114, Est GFR (MDRD) Non-Af 94, BUN/Creatinine Ratio 27.8 H, Glucose 91, Calcium 8.9 Micro: Microbiology 10/25/22 12:01 Tissue - 2nd Toe Gram Stain - Final 10/25/22 12:01 Tissue - 2nd Toe Wound Culture - Preliminary Staphylococcus aureus 10/25/22 12:01 Bone - 2nd Toe Gram Stain - Final 10/25/22 12:01 Bone - 2nd Toe Wound Culture - Preliminary Staphylococcus aureus 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 Electronically Signed: Bayron Sargent MD at 13:37 EDT , Physical Exam Narrative Vascular: DP and PT pulses palpable. CFT is brisk. Nonpitting edema is appreciated to the left foot. No erythema or proximal streaking is noted. Skin temperature gradient is warm to warm from proximal ankle to distal digits bilateral. Neurological: Light touch and epicritic station is intact. Patient responds to painful stimuli. Dermatological: The incision is well coapted with suture to the second digit stump of the left foot. Sanguinous drainage is noted. Granular base to the full-thickness ulceration to the dorsal aspect of the left hallux. No erythema or proximal streaking. No malodor. No probe to bone. No sign of infection. Musculoskeletal: Muscle strength deferred secondary to postop recovery. Mild pain on palpation to the second digit stump. Mild pain on palpation to the full-thickness ulceration to left hallux. No pain with calf compression. Const alert, oriented x3 and no apparent distress Assessment & Plan Assessment/Plan (1) Status post amputation of toe of left foot: PLAN: Patient was examined evaluated. All findings were discussed with the patient. All questions were answered to the patient satisfaction. The patient is recovering well status post her second digit toe surgery as well as excisional debridement of the left big toe. Patient is anxious to be discharged back to [place] she came [place]. The left lower extremity was dressed with Betadine soaked Adaptic, dry sterile dressing and Bigg wrap to secure. Patient was instructed to keep her dressing clean dry and intact. To continue to elevate her leg 4 inches above her heart. She is also encouraged to continue to eat high-protein diet to allow herself the best possibility to heal from her surgery. She was understanding of this. The patient will be discharged today and will follow-up in the office with Dr. Weston Mancuso in approximately 1 week. 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
--- NOTE | 2022-10-26 13:08 | PCM.TXEXTCAR ---
Diet Diet Order/Speech Therapy: 10/25/22 12:18 Diet: Regular - General Food consistency:: Regular Liquid Consistency:: Regular/Thin Routine Orders/Code Status Suppository Type: Dulcolax 10mg Suppository Frequency: Daily PRN Wound(s) LEFT SECOND TOE: Wound Type: Amputation left buttock: Wound Type: Pressure Injury Therapies Weight Bearing: Partial weight bearing Extremity Affected:: Left Lower Physical Therapy: Eval and Treat Occupational Therapy: Eval and Treat Problem/Diagnosis (1) Osteomyelitis of foot, left, acute: Status: Acute Code(s): M86.172 - Other acute osteomyelitis, left ankle and foot (2) Chronic ulcer of toe of left foot: Status: Acute Code(s): L97.529 - Non-pressure chronic ulcer of other part of left foot with unspecified severity (3) Chronic pain: Status: Chronic Code(s): G89.29 - Other chronic pain (4) Status post amputation of toe of left foot: Status: Acute Code(s): Z89.422 - Acquired absence of other left toe(s) Plan: Keep postop dressing to left lower extremity clean dry and intact. Do not let the patient get it wet. If it becomes loose please redress with Betadine soaked Adaptic to the second toe followed by dry sterile dressing, Kerlix wrap and secure with Bigg bandage. Patient is to follow-up with Dr. Mancuso at the [facility] [place] [facility] in 1 week. Allergies/Procedures Done in Hospital Allergies levofloxacin [From Levaquin] Allergy (Verified 10/24/22 13:50) PT UNSURE OF REACTION Penicillins Allergy (Verified 10/24/22 13:50) Hives tolterodine [From Detrol] Allergy (Verified 10/24/22 13:50) PT UNSURE OF REACTION Procedures: None Type of Care/Length of Stay Estimated LOS: More Than 30 Days Type of Care Needed: Skilled Rehab Potential: Good Prognosis: Good Additional Orders/Day of Discharge Day of Discharge: 10/26/22 Dietary and Speech Recommendations Dietitian Recommendations/Changes: Continue regular diet Follow Up Care Please Follow Up With: Weston Mancuso DPM When: Follow-up with Dr. Weston Mancuso in 1 week at the [facility] Discharge Plan Admission Admit Date/Time: 09/01/23 11:32 Attending Provider: Weston Mancuso Primary Care Provider: Miles Reid Consulting Providers: Mitch Hernandez Instructions Additional Instructions / Restrictions: Keep dressing clean, dry and intact until follow up appointment with Dr. Mancuso in 1 week follow up with Dr. Mancuso in 1 week, call for appointment avoid ice/elevation due to peripheral arterial disease with any strikethrough or signs/symptoms of infection please contact our office or proceed to Emergency Department patient is protected weightbearing in a surgical shoe assisted by a walker on the left, I recommend PT at [facility] evaluate the patient Discharge Orders/Prescriptions Prescriptions: New acetaminophen 500 mg Tablet 500 mg PO DAILY@1800 Qty: 0 0RF doxycycline monohydrate 100 mg Capsule 100 mg PO BID Qty: 20 0RF Rx Instructions: Continue to take doxycycline 100 mg 2 times per day for the next 10 days. furosemide 20 mg Tablet 20 mg PO DAILY Qty: 7 0RF nystatin [Nyamyc] 100,000 unit/gram Powder 1 applic topical BID Qty: 15 0RF Protocol: *Topical Application Instructions APPLICATION INSTRUCTIONS: apply to melody area menthol-zinc oxide [Calmoseptine] 0.44-20.6 % Ointment 1 applic topical BID Qty: 113 0RF Protocol: *Topical Application Instructions APPLICATION INSTRUCTIONS: apply to melody area and buttocks Continued acetaminophen [Tylenol Extra Strength] 500 mg tablet 500 mg PO .COMPLEX PRN (Reason: Pain Or Fever) Rx Instructions: 500 mg orally Take 1 tablet PM, 2 tablets AM, 2 tablets HS PRN; donepezil [Aricept] 10 mg tablet 10 mg PO QHS bisacodyl 10 mg suppository 10 mg HI DAILY PRN (Reason: constipation) magnesium hydroxide [Milk of Magnesia] 400 mg/5 mL suspension 30 ml PO DAILY PRN (Reason: stomach upset) nitroglycerin 0.4 mg tablet, sublingual 0.4 mg sublingual Q5-15M PRN (Reason: chest pain) Rx Instructions: do not exceed 3 doses per episode sennosides [senna] 8.6 mg tablet 8.6 mg PO DAILY PRN (Reason: constipation) diclofenac sodium 1 % gel 2 g topical BID Rx Instructions: apply to single elbow, wrist or hand; for hand includes palm/fingers/back of hand polyethylene glycol 3350 [Miralax] 17 gram powder in packet 17 g PO DAILY mineral oil [Fleet Mineral Oil] Enema 118 ml HI DAILY PRN (Reason: constipation) Rx Instructions: discard any unused portion alum-mag hydroxide-simeth 200-200-20 mg/5 mL suspension 30 ml PO Q6H PRN (Reason: indigestion) calcium carbonate [Tums] 200 mg calcium (500 mg) tablet,chewable 200 mg PO Q4H PRN (Reason: dyspepsia) ondansetron HCl 4 mg tablet 4 mg PO Q6H PRN (Reason: nausea and vomiting) hydrocodone-acetaminophen 5-300 mg tablet 1 tab PO Q8H PRN (Reason: pain) allopurinol 300 mg tablet 150 mg PO HS buprenorphine 10 mcg/hour patch weekly 1 patch transdermal WE pantoprazole 40 MG tablet 40 mg PO BID ezetimibe 10 mg tablet 10 mg PO QHS Qty: 90 3RF losartan 25 mg tablet 25 mg PO DAILY Qty: 90 3RF potassium chloride 20 mEq tablet,ER particles/crystals 20 meq PO DAILY Qty: 90 3RF furosemide 20 mg tablet 20 mg PO DAILY Qty: 30 11RF Eliquis 5 mg tablet 5 mg PO BID Referrals / Follow Up: Weston Mancuso DPM [Med Staff - Active Staff] - Miles Reid MD [Primary Care Provider] - Disposition Disposition (needs filled in before D/C Order can be placed): Detention Facility (2) Chronic ulcer of toe of left foot Qualifiers: Non-pressure ulcer stage: with fat layer exposed Qualified Code(s): L97.522 - Non-pressure chronic ulcer of other part of left foot with fat layer exposed (3) Chronic pain Qualifiers: Chronic pain type: chronic pain syndrome Qualified Code(s): G89.4 - Chronic pain syndrome
--- NOTE | 2022-10-26 13:48 | PCM.DC.SUM ---
Providers Date of Admission: 10/25/22 Date of Discharge: 10/26/22 Primary Care Physician: Dr. Miles Reid MD Consultations 10/25/22 12:18 Consult: Hospitalist Routine Consulting Provider: Rommel Lozano Reason for Consult: medical management EMERGENT Consult: No Notified: Yes Date Notified: 10/25/22 Time Notified: 18:23 Method of Notification: via spok Reason For Visit: Pain Diagnosis Discharge Diagnosis (1) Status post amputation of toe of left foot: Status: Acute Code(s): Z89.422 - Acquired absence of other left toe(s) Plan: Patient was examined evaluated. All findings were discussed with the patient. All questions were answered to the patient satisfaction. The patient is recovering well status post her second digit toe surgery as well as excisional debridement of the left big toe. Patient is anxious to be discharged back to the [place] [facility] she came from. The left lower extremity was dressed with Betadine soaked Adaptic, dry sterile dressing and Bigg wrap to secure. Patient was instructed to keep her dressing clean dry and intact. To continue to elevate her leg 4 inches above her heart. She is also encouraged to continue to eat high-protein diet to allow herself the best possibility to heal from her surgery. She was understanding of this. The patient will be discharged today and will follow-up in the office with Dr. Weston Mancuso in approximately 1 week. (2) Osteomyelitis of foot, left, acute: Status: Acute Code(s): M86.172 - Other acute osteomyelitis, left ankle and foot (3) Chronic ulcer of toe of left foot: Status: Acute Code(s): L97.529 - Non-pressure chronic ulcer of other part of left foot with unspecified severity Qualifiers: Non-pressure ulcer stage: with fat layer exposed Qualified Code(s): L97.522 - Non-pressure chronic ulcer of other part of left foot with fat layer exposed Medications at Discharge Home Medications donepezil 10 mg tablet (Aricept) 10 mg PO QHS dementia 11/03/19 ezetimibe 10 mg tablet 10 mg PO QHS cholesterol #90 tabs 04/04/20 losartan 25 mg tablet 25 mg PO DAILY #90 tabs 06/09/20 potassium chloride 20 mEq tablet,extended release(part/cryst) 20 meq PO DAILY supplement #90 tabs 06/09/20 furosemide 20 mg tablet 20 mg PO DAILY #30 tabs 06/12/20 bisacodyl 10 mg rectal suppository 10 mg CA DAILY PRN constipation 08/23/20 magnesium hydroxide 400 mg/5 mL oral suspension (Milk of Magnesia) 30 ml PO DAILY PRN stomach upset 08/23/20 nitroglycerin 0.4 mg sublingual tablet 0.4 mg sublingual Q5-15M PRN chest pain 08/23/20 acetaminophen 500 mg tablet (Tylenol Extra Strength) 500 mg PO .COMPLEX PRN Pain Or Fever 08/10/21 aluminum-mag hydroxide-simethicone 200 mg-200 mg-20 mg/5 mL oral susp 30 ml PO Q6H PRN indigestion 08/10/21 calcium carbonate 200 mg calcium (500 mg) chewable tablet (Tums) 200 mg PO Q4H PRN dyspepsia 08/10/21 diclofenac sodium 1 % topical gel 2 g topical BID 08/10/21 mineral oil (Fleet Mineral Oil enema) 118 ml CA DAILY PRN constipation 08/10/21 ondansetron HCl 4 mg tablet 4 mg PO Q6H PRN nausea and vomiting 08/10/21 polyethylene glycol 3350 17 gram oral powder packet (Miralax) 17 g PO DAILY 08/10/21 sennosides 8.6 mg tablet (senna) 8.6 mg PO DAILY PRN constipation 08/10/21 apixaban 5 mg tablet (Eliquis) 5 mg PO BID 11/05/21 allopurinol 300 mg tablet 150 mg PO HS gout 09/09/22 hydrocodone 5 mg-acetaminophen 300 mg tablet 1 tab PO Q8H PRN pain 09/09/22 buprenorphine 10 mcg/hour weekly transdermal patch 1 patch transdermal WE 10/24/22 pantoprazole 40 mg tablet,delayed release 40 mg PO BID 10/24/22 acetaminophen 500 mg tablet 500 mg PO DAILY@1800 #0 tabs 10/26/22 doxycycline monohydrate 100 mg capsule 100 mg PO BID #20 caps 10/26/22 furosemide 20 mg tablet 20 mg PO DAILY #7 tabs 10/26/22 menthol 0.44 %-zinc oxide 20.6 % topical ointment (Calmoseptine) 1 applic topical BID #113 grams 10/26/22 nystatin 100,000 unit/gram topical powder ([facility]) 1 applic topical BID #15 grams 10/26/22 Hospital Course Summary of Care Provided Minutes Spent on Discharge: 25 Hospital Course: Mrs. Almazan is a 76-year-old female who was admitted secondary to her surgery for observation. The patient underwent left foot surgery consisting of second digit partial toe amputation excisional debridement of the left big toe. Patient was seen by medicine for medical management as well as podiatry for postop evaluation and dressing changes. The patient's course in the hospital has been uneventful. She has a past medical history of hypertension, hyperlipidemia, A-fib status post AV node ablation with pacemaker placement, and GERD. The patient will return back to the afternoon [place] where she currently resides. She is grateful for her care. She will follow-up with Dr. Weston Mancuso at the [facility] for postoperative recovery and evaluation. Physical Exam Narrative Vascular: DP and PT pulses palpable. CFT is brisk. Nonpitting edema is appreciated to the left foot. No erythema or proximal streaking is noted. Skin temperature gradient is warm to warm from proximal ankle to distal digits bilateral. Neurological: Light touch and epicritic station is intact. Patient responds to painful stimuli. Dermatological: The incision is well coapted with suture to the second digit stump of the left foot. Sanguinous drainage is noted. Granular base to the full-thickness ulceration to the dorsal aspect of the left hallux. No erythema or proximal streaking. No malodor. No probe to bone. No sign of infection. Musculoskeletal: Muscle strength deferred secondary to postop recovery. Mild pain on palpation to the second digit stump. Mild pain on palpation to the full-thickness ulceration to left hallux. No pain with calf compression. Const alert, oriented x3 and no apparent distress Weight / BMI Weight Weight: 71.214 kg Body Mass Index (BMI) 21.9 ABG / Lab / Microbiology Data 10/26/22 03:56 10/26/22 03:56 Laboratory: Laboratory Results - last 24 hr 10/26/22 03:56: WBC 7.2, RBC 4.16 L, Hgb 10.6 L, Hct 35.5 L, MCV 85.3, MCH 25.5 L, MCHC 29.9 L, RDW Std Deviation 57.4 H, RDW Coeff of Patel 18.3 H, Plt Count 189, MPV 10.7, Immature Gran % (Auto) 0.300, Neut % (Auto) 65.9, Lymph % (Auto) 21.3, [place] % (Auto) 9.6, Eos % (Auto) 2.6, Baso % (Auto) 0.3, Absolute Neuts (auto) 4.7, Absolute Lymphs (auto) 1.53, Nucleated RBC % 0, Sodium 141, Potassium 4.1, Chloride 111 H, Carbon Dioxide 28.0, Anion Gap 2 L, BUN 18, Creatinine 0.65, Estim Creat Clear Calc 51.82, Est GFR (MDRD) Af Amer 114, Est GFR (MDRD) Non-Af 94, BUN/Creatinine Ratio 27.8 H, Glucose 91, Calcium 8.9 Microbiology: Microbiology 10/25/22 12:01 Tissue - 2nd Toe Gram Stain - Final 10/25/22 12:01 Tissue - 2nd Toe Wound Culture - Preliminary Staphylococcus aureus 10/25/22 12:01 Bone - 2nd Toe Gram Stain - Final 10/25/22 12:01 Bone - 2nd Toe Wound Culture - Preliminary Staphylococcus aureus 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 Keep the left lower extremity dressing clean dry and intact.) May resume sexual activity in: - Weight Bearing Status: Partial weight bearing and No weight bearing Call your doctor if your incision/area has: Continuous Slow Oozing, Sudden Increased Bleeding, Increased Pain/ Swelling, Increased Redness and Foul Smelling Discharge Call your doctor if you observe: Fever of 101 or Higher Change Dressing in: 1 week Additional Instructions: The patient is to follow-up with Dr. Weston Mancuso at the [facility] in [place] in 1 week for observation and postoperative visit. Please Follow Up With: Weston Mancuso DPM When: Please call the office on Friday. Please follow-up with Dr. Weston Mancuso in approximately 1 week/next week. Thank you. Meaningful Use Info Meaningful Use Diagnoses (Choose all that apply): None applicable Discharge Plan Admission Admit Date/Time: 10/25/22 11:32 Attending Provider: Weston Mancuso Primary Care Provider: Miles Reid Consulting Providers: Mitch Hernandez Instructions Additional Instructions / Restrictions: Keep dressing clean, dry and intact until follow up appointment with Dr. Mancuso in 1 week follow up with Dr. Mancuso in 1 week, call for appointment avoid ice/elevation due to peripheral arterial disease with any strikethrough or signs/symptoms of infection please contact our office or proceed to Emergency Department patient is protected weightbearing in a surgical shoe assisted by a walker on the left, I recommend PT at evaluate the patient Discharge Orders/Prescriptions Prescriptions: New acetaminophen 500 mg Tablet 500 mg PO DAILY@1800 Qty: 0 0RF doxycycline monohydrate 100 mg Capsule 100 mg PO BID Qty: 20 0RF Rx Instructions: Continue to take doxycycline 100 mg 2 times per day for the next 10 days. furosemide 20 mg Tablet 20 mg PO DAILY Qty: 7 0RF nystatin [Nyamyc] 100,000 unit/gram Powder 1 applic topical BID Qty: 15 0RF Protocol: *Topical Application Instructions APPLICATION INSTRUCTIONS: apply to melody area menthol-zinc oxide [Calmoseptine] 0.44-20.6 % Ointment 1 applic topical BID Qty: 113 0RF Protocol: *Topical Application Instructions APPLICATION INSTRUCTIONS: apply to melody area and buttocks Continued acetaminophen [Tylenol Extra Strength] 500 mg tablet 500 mg PO .COMPLEX PRN (Reason: Pain Or Fever) Rx Instructions: 500 mg orally Take 1 tablet PM, 2 tablets AM, 2 tablets HS PRN; donepezil [Aricept] 10 mg tablet 10 mg PO QHS bisacodyl 10 mg suppository 10 mg CA DAILY PRN (Reason: constipation) magnesium hydroxide [Milk of Magnesia] 400 mg/5 mL suspension 30 ml PO DAILY PRN (Reason: stomach upset) nitroglycerin 0.4 mg tablet, sublingual 0.4 mg sublingual Q5-15M PRN (Reason: chest pain) Rx Instructions: do not exceed 3 doses per episode sennosides [senna] 8.6 mg tablet 8.6 mg PO DAILY PRN (Reason: constipation) diclofenac sodium 1 % gel 2 g topical BID Rx Instructions: apply to single elbow, wrist or hand; for hand includes palm/fingers/back of hand polyethylene glycol 3350 [Miralax] 17 gram powder in packet 17 g PO DAILY mineral oil [Fleet Mineral Oil] Enema 118 ml CA DAILY PRN (Reason: constipation) Rx Instructions: discard any unused portion alum-mag hydroxide-simeth 200-200-20 mg/5 mL suspension 30 ml PO Q6H PRN (Reason: indigestion) calcium carbonate [Tums] 200 mg calcium (500 mg) tablet,chewable 200 mg PO Q4H PRN (Reason: dyspepsia) ondansetron HCl 4 mg tablet 4 mg PO Q6H PRN (Reason: nausea and vomiting) hydrocodone-acetaminophen 5-300 mg tablet 1 tab PO Q8H PRN (Reason: pain) allopurinol 300 mg tablet 150 mg PO HS buprenorphine 10 mcg/hour patch weekly 1 patch transdermal WE pantoprazole 40 MG tablet 40 mg PO BID ezetimibe 10 mg tablet 10 mg PO QHS Qty: 90 3RF losartan 25 mg tablet 25 mg PO DAILY Qty: 90 3RF potassium chloride 20 mEq tablet,ER particles/crystals 20 meq PO DAILY Qty: 90 3RF furosemide 20 mg tablet 20 mg PO DAILY Qty: 30 11RF Eliquis 5 mg tablet 5 mg PO BID Referrals / Follow Up: Weston Mancuso DPM [Med Staff - Active Staff] - Miles Reid MD [Primary Care Provider] - Disposition Disposition (needs filled in before D/C Order can be placed): Senior Living Facility
--- NOTE | 2022-10-26 14:05 | CASEMGMT ---
HOLLIS MONTERO in to complete OLEARY form. RN WINSTON explained OLEARY form, patient voiced understanding. Patient signed OLEARY form and filed in chart. Patient provided with copy of signed OLEARY form. Patient had no further question or concerns.
[2022-10-26 15:55] VITALS: BP 113/70; PULSE 74; RESP 18; TEMP 36.8; O2SAT 97
== END 2022-10-26 16:45 | disposition skilled nursing facility (03) ==
LOC: SDC 16:15 → MS3 16:16
PROVIDERS: Family Medicine; Admitting Provider Podiatrist; PCP Family Medicine; Referring Provider Podiatrist; Visit Provider Podiatrist
PROC: (CPT 28825; principal; 2022-10-25 09:50)
DX: M86.172 Other acute osteomyelitis, left ankle and foot (principal); L97.522 Non-pressure chronic ulcer of other part of left foot with fat layer exposed; M06.9 Rheumatoid arthritis, unspecified; F03.90 Unspecified dementia, unspecified severity, without behavioral disturbance, psychotic disturbance, mood disturbance, and anxiety; I48.0 Paroxysmal atrial fibrillation; E66.01 Morbid (severe) obesity due to excess calories; Z68.41 Body mass index [BMI] 40.0-44.9, adult; E78.5 Hyperlipidemia, unspecified; G89.29 Other chronic pain; I12.9 Hypertensive chronic kidney disease with stage 1 through stage 4 chronic kidney disease, or unspecified chronic kidney disease; K21.9 Gastro-esophageal reflux disease without esophagitis; N18.2 Chronic kidney disease, stage 2 (mild); M79.7 Fibromyalgia; I25.2 Old myocardial infarction; Z95.0 Presence of cardiac pacemaker; Z79.899 Other long term (current) drug therapy; Z79.01 Long term (current) use of anticoagulants; I25.10 Atherosclerotic heart disease of native coronary artery without angina pectoris; L90.0 Lichen sclerosus et atrophicus
CPT/HCPCS: 28825; 01480; 36415; 73620; 80048; 85025; 87015; 87070; 87075; 87077; 87102; 87116; 87176; 87186; 87205; 87206; 88304; 88305; 88311; 94668; 99252; J7120; G0463; J2405

== ENCOUNTER → 2022-11-26 | Outpatient (CLI) | payer MEDICARE, OTHER, SELFPAY | END | disposition home or self-care (01) | PROVIDERS: PCP Family Medicine; Visit Provider Podiatrist | DX: L97.522 Non-pressure chronic ulcer of other part of left foot with fat layer exposed (principal) | CPT/HCPCS: 87070; 87075; 87077; 87186; 87205 ==

== ENCOUNTER → 2023-01-23 | Outpatient (CLI) | payer MEDICARE, OTHER, MEDICAID, SELFPAY ==
--- NOTE | 2023-01-23 10:32 | NM_ITS ---
CLINICAL: 77-year-old female with history of chronic nausea. SOLID PHASE 99m Tc SULFUR COLLOID GASTRIC EMPTYING STUDY COMPARISON: None available FINDINGS: The patient was administered 1.2 mCi of 99m Tc sulfur colloid mixed with egg and consumed per os. Image acquisitions in the anterior-posterior projections were obtained for 233 minutes following meal consumption. There is prompt visualization of the stomach. There is no gastroesophageal reflux identified. First order kinetics are maintained throughout the duration of the acquisitions. The T ? raw data emptying was calculated to be 162.89 minutes, (Normal 65-110 minutes). 77 % emptying and 23 % retention are defined at approximately 4 hours post meal ingestion. NM/Gastric Emptying Study - 4 HR IMPRESSION: 1. ABNORMAL 99m Tc sulfur colloid solid phase gastric emptying imaging examination. A. There is abnormal solid phase gastric emptying compared to normal controls with maintained first order kinetics throughout all components of the examination. (Larry et al, Gastroenterology 77: 75, 1979 Dontae et al, Semin Nucl Med 12: 116, 1981 Jaky et al, SNM Procedure Guidelines Adult Solid Meal Gastric Emptying Study 3.0 [email or web address]). B. Greater than 10% retention of the initial gastric contents at 4 hours post dose is consistent with abnormal solid phase gastric emptying which correlates with the results of the T ? emptying calculation. (Clifford et al, J Nucl Med 48: 568, 2007). Electronically Signed: Amol Plaza DO at 9:43 EST ,
== END | disposition home or self-care (01) ==
PROVIDERS: PCP Family Medicine; Referring Provider Internal Medicine Gastroenterology; Visit Provider Internal Medicine Gastroenterology
DX: R11.2 Nausea with vomiting, unspecified (principal); R63.4 Abnormal weight loss
CPT/HCPCS: 78264; A9541

== ENCOUNTER → 2023-05-14 | Outpatient (CLI) | payer MEDICARE, OTHER, MEDICAID, SELFPAY | END | disposition home or self-care (01) | PROVIDERS: PCP Family Medicine; Referring Provider Podiatrist; Visit Provider Podiatrist | DX: L97.522 Non-pressure chronic ulcer of other part of left foot with fat layer exposed (principal) | CPT/HCPCS: 87070; 87075; 87077; 87186; 87205 ==

== ENCOUNTER → 2023-07-02 | Outpatient (CLI) | payer MEDICARE, OTHER, MEDICAID, SELFPAY | END | disposition home or self-care (01) | LOC: LABSPEC 17:31 | PROVIDERS: PCP Family Medicine; Visit Provider Podiatrist | DX: L97.512 Non-pressure chronic ulcer of other part of right foot with fat layer exposed (principal) | CPT/HCPCS: 87070; 87075; 87077; 87205 ==

== ENCOUNTER → 2024-02-26 | Outpatient (CLI) | payer MEDICARE, OTHER, MEDICAID, SELFPAY | END | disposition home or self-care (01) | PROVIDERS: PCP Family Medicine; Referring Provider Podiatrist; Visit Provider Podiatrist | DX: L97.522 Non-pressure chronic ulcer of other part of left foot with fat layer exposed (principal); I73.89 Other specified peripheral vascular diseases | CPT/HCPCS: 87070; 87075; 87077; 87186; 87205 ==

== ENCOUNTER → 2024-03-03 | Outpatient (CLI) | payer MEDICARE, OTHER, MEDICAID, SELFPAY ==
--- NOTE | 2024-03-03 08:49 | ART_ITS ---
Reason For Study: Vascular Disease Procedure A bilateral lower extremity continuous wave Doppler with analog waveform analysis,segmental pressures,and ankle brachial indexes without exercise. Left Segmental Pressures Left brachial= 129mmHg. Left posterior tibial artery = >254mmHg. Left dorsalis pedis artery = 141mmHg. Left digit = 94 mmHg. The left dorsalis pedis waveforms are biphasic. The left posterior tibial artery waveforms are biphasic. Right Segmental Pressures Right brachial= 133mmHg. Right posterior tibial artery = 168mmHg. Right dorsalis pedis artery = >254mmHg. Right digit = 77 mmHg. The right dorsalis pedis waveforms are triphasic. The right posterior tibial artery waveforms are biphasic. Indices The right ankle brachial index by the dorsalis pedis is NC. The right ankle brachial index by the posterior tibial artery is 1.26. The right digital-brachial index is 0.58. The left ankle brachial index by the dorsalis pedis is 1.06. The left ankle brachial index by the posterior tibial artery is NC. The left digital-brachial index is 0.71. . Technically difficult study. VL/Lower Ext Art Exam w/o Exercis Interpretation Summary Biphasic and triphasic Doppler waveforms are noted at ankle level on the right. Biphasic Doppler waveforms are noted at ankle level on the left. Pulse-volume recordings appear diminished at ankle level on the right, and at digital level bilaterally, but satisfactory at all o ther levels bilaterally. Resting ankle-brachial indices are normal bilaterally. The right d igital-brachial index is mildly diminished. The left digital-brachial index is low-normal. Arterial flow appears normal at ankle level bilaterally, and at digital level o n the left. There is evidence of mild arterial occlusive disease at digital level on the right. Ther e is evidence of arterial calcification at ankle level bilaterally. Ordering Physician: Weston Mancuso Referring Physician: Miles Reid Performed By: Vick Belcher RVT and Student
== END | disposition home or self-care (01) ==
PROVIDERS: PCP Family Medicine; Referring Provider Podiatrist; Visit Provider Podiatrist
DX: I73.89 Other specified peripheral vascular diseases (principal)
CPT/HCPCS: 93923

== ENCOUNTER 2024-03-09 10:42 | Day surgery (SDC) | payer MEDICARE, OTHER, MEDICAID, SELFPAY ==
--- NOTE | 2024-03-05 17:03 | PAT.ANESEVAL ---
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 When Was Last Pacemaker Check QUESTION #4 FULL TEXT: You/Your Family Experience fever (hyperthermia) with Anesthesia Last Oral Intake Last Oral intake: Last Oral Intake NPO since Meds taken in AM with sips of water? 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 - fermenter operator Female Yes 03/05/24 14:43 HX of Motion Sickness No 03/05/24 14:43 HX of N/V After Surgery No 03/05/24 14:43 Non-Smoker Yes 03/05/24 14:43 Duration of Surgery greater No 03/05/24 14:43 than 60 minutes Number of Risk Factors 2 03/05/24 14:43 PONV Score Moderate Risk 03/05/24 14:43 Height & Weight Height & Weight: Anesthesia: Height & Weight Height 5 ft 11 in 02/12/24 10:17 Respiratory Assessment Respiratory Assessment - fermenter operator: Respiratory Tract Infection Hx - fermenter operator Hx Respiratory Tract Infection No 03/05/24 14:43 STOP Sleep Apnea STOP Sleep Apnea - fermenter operator: STOP Sleep Apnea - fermenter operator Hx Hypertension Yes 03/05/24 14:43 Hx Sleep Apnea No 03/05/24 14:43 CPAP No 03/05/24 14:43 BIPAP No 03/05/24 14:43 Do you snore loudly (louder No 03/05/24 14:43 than talking or can be heard Do you often feel tired/ Yes 03/05/24 14:43 fatigued/ sleepy during daytime? Has anyone observed you stop No 03/05/24 14:43 breathing during sleep? STOP Results Positive 03/05/24 14:43 QUESTION #5 FULL TEXT : Do you snore loudly (louder than talking or can be heard through closed doors)? 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 Specify any problems Hx of Preganancy in last 3 No 03/05/24 14:43 Months Nurse Filling Out Transfusion DSCHRIBER 03/05/24 14:43 & Questions: Date: 03/05/24 03/05/24 14:43 Time: 14:44 03/05/24 14:43 Patient unable to answer at this time (ie. confused, unrespo /Reproduction History /Reproductive History - fermenter operator: /Reproductive Hx- fermenter operator Hx Now Gestational Age (in weeks): EDC: Hx Hx Para Hx Section SAB No 03/05/24 14:43 PFSH Medical History (Updated 03/05/24 @ 12:17 by Briana Cabrales) MRSA (methicillin resistant Staphylococcus aureus) infection COVID-19 (04/24/22) Gastroparesis Lives in custodial Loss of hearing Wears glasses Wears dentures Anxiety Open wound Uses wheelchair Injury of head and neck Back pain Injury of back Non-smoker Hypertension History of echocardiogram Cardiology follow-up encounter History of pacemaker History of atrial fibrillation Radiculopathy Hypokalemia Dementia Rheumatoid arthritis Gout Mitral valve prolapse History of cardioversion (~04/23/19) Gout Diverticulitis Old myocardial infarction Paroxysmal atrial fibrillation Spinal stenosis of lumbar region GERD (gastroesophageal reflux disease) Rheumatoid arthritis Fibromyalgia Nonrheumatic mitral (valve) insufficiency Nonrheumatic mitral (valve) prolapse Screening for intestinal cancer Morbid obesity with BMI of 40.0-44.9, adult Recurrent pancreatitis Hyperlipidemia Familial combined hyperlipidemia Benign hypertension Home Medications ?Medication ?Instructions ?Recorded ?Last Taken ?Type donepezil 10 mg tablet (Aricept) 10 mg PO QHS dementia 11/03/19 12/24/19 08:00 History losartan 25 mg tablet 25 mg PO DAILY #90 tabs 06/09/20 10/25/22 Rx potassium chloride 20 mEq 20 meq PO DAILY supplement #90 tabs 06/09/20 Unknown Rx tablet,extended release(part/cryst) magnesium hydroxide 400 mg/5 mL 30 ml PO DAILY PRN stomach upset 08/23/20 Unknown History oral suspension (Milk of Magnesia) nitroglycerin 0.4 mg sublingual 0.4 mg sublingual Q5-15M PRN chest 08/23/20 Unknown History tablet pain acetaminophen 500 mg tablet 1,000 mg PO BID PRN Pain Or Fever 08/10/21 10/25/22 History (Tylenol Extra Strength) aluminum-mag hydroxide-simethicone 30 ml PO Q6H PRN indigestion 08/10/21 Unknown History 200 mg-200 mg-20 mg/5 mL oral susp diclofenac sodium 1 % topical gel 2 g topical BID 08/10/21 Unknown History mineral oil (Fleet Mineral Oil 118 ml [place] DAILY PRN constipation 08/10/21 Unknown History enema) ondansetron HCl 4 mg tablet 4 mg PO Q6H PRN nausea and vomiting 08/10/21 Unknown History polyethylene glycol 3350 17 gram 17 g PO DAILY PRN constipation 08/10/21 Unknown History oral powder packet (Miralax) apixaban 5 mg tablet (Eliquis) 5 mg PO BID 11/05/21 10/23/22 History allopurinol 300 mg tablet 150 mg PO HS gout 09/09/22 Unknown History pantoprazole 40 mg tablet,delayed 40 mg PO BID 10/24/22 10/25/22 History release furosemide 20 mg tablet 20 mg PO DAILY #7 tabs 10/26/22 Unknown Rx hydrocodone-acetaminophen 5-325mg 1 tab PO Q8H PRN pain 12/17/22 Unknown History 5mg-325mg zinc oxide 40 % topical ointment 1 applic topical ONCE PRN skin 12/17/22 Unknown History irritation ammonium lactate 12 % topical cream 1 applic topical QHS FEET 08/06/23 Unknown History buprenorphine 15 mcg/hour weekly 1 patch transdermal TH 08/06/23 Unknown History transdermal patch (Butrans) mirtazapine 7.5 mg tablet 7.5 mg PO QHS 02/12/24 Unknown History multivitamin 1 tab PO QAM 02/12/24 Unknown History Saccharomyces boulardii 250 mg 250 mg PO DAILY 03/05/24 Unknown History capsule (Daily Probiotic (S. boulardii)) acetaminophen 500 mg tablet 500 mg PO 1500 03/05/24 Unknown History Allergy/AdvReac Type Severity Reaction Status Date / Time levofloxacin (From Levaquin) Allergy PT UNSURE Verified 03/05/24 11:25 OF REACTION Penicillins Allergy Hives Verified 03/05/24 11:25 tolterodine (From Detrol) Allergy PT UNSURE Verified 03/05/24 11:25 OF REACTION Family History Sister Hypertension Other Arthritis Cancer Diabetes Surgical History History of amputation of lesser toe of left foot (10/25/22) Status post amputation of toe of left foot H/O endoscopic retrograde cholangiopancreatography History of back surgery History of left knee replacement History of appendectomy History of cholecystectomy History of cardiac radiofrequency ablation (~10/2008) S/P lumbar fusion Social History Smoking Status: Never smoker alcohol intake: never substance use type: does not use what type of physical activity do you participate in: none seatbelt use: always do you feel safe at home: Yes Audit: Pertinent Findings Pertinent Findings EKG Perinent findings: October 19, 2022. Paced rhythm with underlying A-fib. No change from December 25, 2019. Echo (EF%) pertinent findings: April 23, 2019. Ejection fraction 65%. No aortic stenosis noted. Consult pertinent findings: February 12, 2024. Dr. Trujillo. 1. Cardiac pacemaker-patient is V paced 100% of the time. 2. Paroxysmal atrial fibrillation. Stable. Continue Eliquis for stroke prevention. Not on rate limiting medication. Heart rate is well-controlled. 3. Mitral valve insufficiency-echo in 2019 showed ejection fraction 70%. Moderate mitral valve insufficiency. This appears stable. Continue medical therapy. 4. [id number]. Recommendation Anesthesia Recommendation Anesthesia recommendation: OPTIMIZED for anesthesia
[2024-03-09] VITALS (7 sets, daily range): BP systolic 118–134; BP diastolic 59–77; PULSE 70–80; RESP 16–18; TEMP 36.3–36.6; O2SAT 94–99; BMI 29.7
--- NOTE | 2024-03-09 11:43 | SUR.PREOP ---
called and talked with nurse at the [facility]- pt did not receive any medications this morning and stopped eliquis 03/06/24 per nurse report
--- NOTE | 2024-03-09 12:06 | PCM.PRE.AN2 ---
ASA Classification* ASA Classification ASA Classification: 3 Assessment & Plan Anesthesia* Anesthesia Assessment Anesthesia Assessment: Discussed sedation and/or anesthesia options, risks, benefits, and alternatives with patient/parents/legal guardian/POA. Questions invited. The patient/parents/legal guardian/POA seems to understand and agrees to proceed with anesthesia plan. Reviewed the physical assessment, medical history, allergy history and patient home medications list prior to surgery/procedure/anesthetic and documented any changes. Performed airway and anesthesia risk assessments. Anesthesia Type Anesthesia Type: MAC History Source History Obtained from:: Patient and Chart Anesthesia Focused Assessment* Temperature: 97.8 F Pulse Rate: 80 Blood Pressure: 134/77 Respiratory Rate: 18 Pulse Ox: 98 Oxygen Delivery Method: Room Air Airway Assessment Mouth opens: >3 cm Mallampati Score: III Teeth Condition: Dentures (Patient has upper dentures.) and Missing (Patient is edentulous on the lower jaw.) Neck Range of motion (ROM): Limited ROM Focused Labs Anesthesia Preop lab: CBC WBC 5.7 K/mm3 (4.4-11.0) 01/16/24 10:00 RBC 4.24 M/mm3 (4.2-5.4) 01/16/24 10:00 Hgb 12.0 g/dL (12.0-15.0) 01/16/24 10:00 Hct 37.6 % (37-47) 01/16/24 10:00 Plt Count 237 K/mm3 (150-450) 01/16/24 10:00 CHEMISTRY Potassium 4.5 mmol/L (3.5-5.1) 01/16/24 10:00 Sodium 140 mmol/L (136-145) 01/16/24 10:00 Magnesium 2.0 mg/dL (1.6-2.6) 09/13/19 06:18 Phosphorus 3.4 mg/dL (2.5-4.9) 09/30/19 08:05 BUN 29 mg/dL (7-18) H 01/16/24 10:00 Creatinine 0.77 mg/dL (0.55-1.02) 01/16/24 10:00 Glucose 125 mg/dL (74-106) H 01/16/24 10:00 TSH 1.06 uIU/mL (0.358-3.74) 09/12/19 06:00 COAG PT 14.7 SECONDS (11.7-14.9) 12/25/19 09:50 Pre-Assessment Diagnosis/Proposed Procedure Planned Operative Procedure(s): LEFT THIRD TOE AMPUTATION Anesthesia History 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 When Was Last Pacemaker Check QUESTION #4 FULL TEXT: You/Your Family Experience fever (hyperthermia) with Anesthesia Last Oral Intake Last Oral intake: Last Oral Intake NPO since 00:00 03/09/24 11:42 Meds taken in AM with sips of No 03/09/24 11:42 water? 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 Female Yes 03/05/24 14:43 HX of Motion Sickness No 03/05/24 14:43 HX of N/V After Surgery No 03/05/24 14:43 Non-Smoker Yes 03/05/24 14:43 Duration of Surgery greater No 03/05/24 14:43 than 60 minutes Number of Risk Factors 2 03/05/24 14:43 PONV Score Moderate Risk 03/05/24 14:43 Height & Weight Height & Weight: Anesthesia: Height & Weight Height 5 ft 4 in 03/09/24 11:42 Weight: 78.471 kg 03/09/24 11:42 Body Mass Index (BMI) 29.7 03/09/24 11:42 Respiratory Assessment Respiratory Assessment - sleeve wheel maker: Respiratory Tract Infection Hx - sleeve wheel maker Hx Respiratory Tract Infection No 03/05/24 14:43 STOP Sleep Apnea STOP Sleep Apnea - sleeve wheel maker: STOP Sleep Apnea - sleeve wheel maker Hx Hypertension Yes 03/05/24 14:43 Hx Sleep Apnea No 03/05/24 14:43 CPAP No 03/05/24 14:43 BIPAP No 03/05/24 14:43 Do you snore loudly (louder No 03/05/24 14:43 than talking or can be heard Do you often feel tired/ Yes 03/05/24 14:43 fatigued/ sleepy during daytime? Has anyone observed you stop No 03/05/24 14:43 breathing during sleep? STOP Results Positive 03/05/24 14:43 QUESTION #5 FULL TEXT : Do you snore loudly (louder than talking or can be heard through closed doors)? 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 Specify any problems Hx of Preganancy in last 3 No 03/05/24 14:43 Months Nurse Filling Out Transfusion DSCHRIBER 03/05/24 14:43 & Questions: Date: 03/05/24 03/05/24 14:43 Time: 14:44 03/05/24 14:43 Patient unable to answer at this time (ie. 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: /Reproductive Hx- sleeve wheel maker Hx Now Gestational Age (in weeks): EDC: Hx Hx Para Hx Section SAB No 03/05/24 14:43 Active Medications Active Medications: Current Medications Generic Name Dose Route Start Last Admin Trade Name Freq PRN Reason Stop Dose Admin Clindamycin Phosphate 900 mg in 50 mls @ 75 mls/hr 03/09/24 11:30 Cleocin IV 03/09/24 12:09 PREOP ONE [facility] Medical History History of complete heart block MRSA (methicillin resistant Staphylococcus aureus) infection COVID-19 (04/24/22) Gastroparesis Lives in care home Loss of hearing Wears glasses Wears dentures Anxiety Open wound Uses wheelchair Injury of head and neck Back pain Injury of back Non-smoker Hypertension History of echocardiogram Cardiology follow-up encounter History of pacemaker History of atrial fibrillation Radiculopathy Hypokalemia Dementia Rheumatoid arthritis Gout Mitral valve prolapse History of cardioversion (~04/23/19) Gout Diverticulitis Old myocardial infarction Paroxysmal atrial fibrillation Spinal stenosis of lumbar region GERD (gastroesophageal reflux disease) Rheumatoid arthritis Fibromyalgia Nonrheumatic mitral (valve) insufficiency Nonrheumatic mitral (valve) prolapse Screening for intestinal cancer Morbid obesity with BMI of 40.0-44.9, adult Recurrent pancreatitis Hyperlipidemia Familial combined hyperlipidemia Benign hypertension Home Medications ?Medication ?Instructions ?Recorded ?Last Taken ?Type donepezil 10 mg tablet (Aricept) 10 mg PO QHS dementia 11/03/19 12/24/19 08:00 History losartan 25 mg tablet 25 mg PO DAILY #90 tabs 06/09/20 10/25/22 Rx potassium chloride 20 mEq 20 meq PO DAILY supplement #90 tabs 06/09/20 Unknown Rx tablet,extended release(part/cryst) magnesium hydroxide 400 mg/5 mL 30 ml PO DAILY PRN stomach upset 08/23/20 Unknown History oral suspension (Milk of Magnesia) nitroglycerin 0.4 mg sublingual 0.4 mg sublingual Q5-15M PRN chest 08/23/20 Unknown History tablet pain acetaminophen 500 mg tablet 1,000 mg PO BID PRN Pain Or Fever 08/10/21 10/25/22 History (Tylenol Extra Strength) aluminum-mag hydroxide-simethicone 30 ml PO Q6H PRN indigestion 08/10/21 Unknown History 200 mg-200 mg-20 mg/5 mL oral susp diclofenac sodium 1 % topical gel 2 g topical BID 08/10/21 Unknown History mineral oil (Fleet Mineral Oil 118 ml [place] DAILY PRN constipation 08/10/21 Unknown History enema) ondansetron HCl 4 mg tablet 4 mg PO Q6H PRN nausea and vomiting 08/10/21 Unknown History polyethylene glycol 3350 17 gram 17 g PO DAILY PRN constipation 08/10/21 Unknown History oral powder packet (Miralax) apixaban 5 mg tablet (Eliquis) 5 mg PO BID 11/05/21 03/06/24 History allopurinol 300 mg tablet 150 mg PO HS gout 09/09/22 Unknown History pantoprazole 40 mg tablet,delayed 40 mg PO BID 10/24/22 10/25/22 History release furosemide 20 mg tablet 20 mg PO DAILY #7 tabs 10/26/22 Unknown Rx hydrocodone-acetaminophen 5-325mg 1 tab PO Q8H PRN pain 12/17/22 Unknown History 5mg-325mg zinc oxide 40 % topical ointment 1 applic topical ONCE PRN skin 12/17/22 Unknown History irritation ammonium lactate 12 % topical cream 1 applic topical QHS FEET 08/06/23 Unknown History buprenorphine 15 mcg/hour weekly 1 patch transdermal TH 08/06/23 Unknown History transdermal patch (Butrans) mirtazapine 7.5 mg tablet 7.5 mg PO QHS 02/12/24 Unknown History multivitamin 1 tab PO QAM 02/12/24 Unknown History Saccharomyces boulardii 250 mg 250 mg PO DAILY 03/05/24 Unknown History capsule (Daily Probiotic (S. boulardii)) acetaminophen 500 mg tablet 500 mg PO 1500 03/05/24 Unknown History Allergy/AdvReac Type Severity Reaction Status Date / Time levofloxacin (From Levaquin) Allergy PT UNSURE Verified 03/09/24 11:20 OF REACTION Penicillins Allergy Hives Verified 03/09/24 11:20 tolterodine (From Detrol) Allergy PT UNSURE Verified 03/09/24 11:20 OF REACTION Family History Sister Hypertension Other Arthritis Cancer Diabetes Surgical History History of amputation of lesser toe of left foot (10/25/22) Status post amputation of toe of left foot H/O endoscopic retrograde cholangiopancreatography History of back surgery History of left knee replacement History of appendectomy History of cholecystectomy History of cardiac radiofrequency ablation (~10/2008) S/P lumbar fusion Social History Smoking Status: Never smoker alcohol intake: never substance use type: does not use what type of physical activity do you participate in: none seatbelt use: always do you feel safe at home: Yes Review of Systems (Anesthesia) ROS Narrative System reviewed and no additional complaints, except as documented.
--- NOTE | 2024-03-09 12:30 | AMP_PTH ---
PATIENT: ANNETTE BOSS [place] [facility] [place][id number] AGE/SX: 78/F ROOM: RE03/09/[address]: Dr. Weston Mancuso DPM : 1945 BED: DIS: 03/09/2024 SPEC #: [id number] RECD: 03/09/24 14:12 STATUS: LAUREN REAryan #: [id number] JUN: 03/09/24 12:[address]: Weston Mancuso DEPT: SURGICAL PATHOLOGY RECD BY: Rocio Torres ENTERED: 03/10/24 09:58 SP TYPE: Amputation OTHR DR: Dr. Miles Reid MD Tissues: Toe, NOS Procedures: Decalcification bone/plaque Surgery Specimen Level IV HEADER OPERATION: Left third toe amputation PRE-OP DIAGNOSIS: Cellulitis of left toe TISSUE SUBMITTED: Left third toe MICROSCOPIC DIAGNOSIS Left third toe: Portion of toe showing focal stasis dermatitis with erosion/ulceration, focal. Bone: Negative for acute osteomyelitis. PW. 03/15/2024 MICROSCOPIC DESCRIPTION Slides are reviewed. GROSS DESCRIPTION Received in fixative is one container labeled with the patient's name and designated Left third toe. The specimen consists of a portion of toe measuring 2.5 x 1.5 x 1.5cm. Nail is present and appears unremarkable. The dorsal surface of the toe shows focal area of ulceration measuring 1.2 x 1.0cm. Office Clin Asst sections are submitted in two cassettes as follows: 1- ulcerated area, 2- bone after decalcification. BYRON. 03/10/2024 TC:5 CPT:[id number]
[2024-03-09] MEDS: Clindamycin 900 MG/50 ML BAG 75 MG IV (12:55)
[2024-03-09] MEDS: Bupivacaine Mpf 0.5% 30 ML VIAL (13:12)
--- NOTE | 2024-03-09 13:41 | OP.PCM_ITS ---
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: leslie arita Tasks completed by periodontal assistant: Opening, Closing, Harvesting grafts, Implanting device, Altering tissue and Insert Trochanter Type of Anesthesia: MAC RN Documented Start/Stop Times: Operation Date: 03/09/24 12:30 Case Time Into Pre-Op 03/09/24 11:20 Out of Pre-Op 03/09/24 12:44 Anesthesia Start 03/09/24 12:48 Into Room 03/09/24 12:48 Procedure Start 03/09/24 13:12 Procedure End 03/09/24 13:39 Procedure Start Time: 01:00 Procedure Stop Time: 01:42 Select all DRAINS/GRAFTS/IMPLANTS that apply: None Special Medications: 20 cc 0.5% marcaine plain Estimated Blood Loss: minimal Specimen collected: Yes Description of specimen(s) removed: Left third toe c ulture and path Description of surgery: Patient brought back the operating placed company in supine position operating room table. Patient induced under MAC anesthesia. Well-padded left ankle tourniquet was applied. Left lower extremity scrubbed prepped draped using typical aseptic fashion. Local anesthesia block performed with a digital block to the left third toe using 20 cc half percent Marcaine plain. A linear incision was drawn along the dorsal aspect of the toe extending just proximal to the third metatarsal phalangeal joint This incision was made full-thickness through epidermis steroids down to level of bone using a #15 blade. Any bleeders identified cauterized. These third toe was disarticulated at the level of the metatarsal phalangeal joint. It was split passed back table and sent for culture and pathology. Residual amputation stump was examined for any residual nonviable tissue. There is noted to be healthy bleeding noted. This is suggestive of good wound healing present potential. Site was flushed with copious amounts of normal sterile saline. In the incisional was closed using a dorsal racquet approach with simple int errupted 4-0 Prolene. Incisional site was dressed with Betadine Adaptic 4 x 4's Kerlix and a lightly wrapped Bigg bandage. No tourniquet used throughout the case. Patient was transported PACU vital signs stable and vascular status intact all digits for further monitoring prior to discharge. Patient tolerated procedure and anesthesia well apparent satisfactory condition. Patient is not ambulatory and is transferred via Roxanna lift. No complications Adequate bleeding to amputation site suggestive of healing potential Surgical Findings: As dictated above Complications Complications: No
--- NOTE | 2024-03-09 13:49 | PCM.POST.ANE ---
Anesthesia: Postop Eval I Current Vital Signs Temperature: 97.4 F Pulse Rate: 71 Blood Pressure: 123/67 Respiratory Rate: 16 Pulse Ox: 99 Oxygen Delivery Method: Room Air Assessment Airway patent: Yes Spontaneous unlabored respirations: Yes Mental status: Awake and Calm nausea: No Vomiting: No Anesthesia Complication: No Fluid Hydration Crystalloid volume administer (ml): 200 Total IV fluid infused: 200 Progress Note Anesthesia document: Postop Eval 1 completed: Yes
--- NOTE | 2024-03-09 15:20 | SUR.PHASEII ---
called [facility] [place] to give report on pt, no awnser. d/c instructions all in yellow packet for nurse
--- NOTE | 2024-03-09 21:10 | POSTOPAN2_ITS ---
Anesthesia Postop Eval I Sum Postop Eval Completion status Anesthesia document: Postop Eval 1 completed: Yes Anesthesia Postop Eval I Summary Anesthesia Postop Eval I Summary: Anesthesia Postop Eval I: Assessment Summary Airway patent Yes 03/09/24 13:50 GRID CASTING MACHINE OPERATOR HELPER.[email or web address] Spontaneous unlabored Yes 03/09/24 13:50 GRID CASTING MACHINE OPERATOR HELPER.[email or web address] respirations Mental status Awake,Calm 03/09/24 13:50 GRID CASTING MACHINE OPERATOR HELPER.GDOTT nausea No 03/09/24 13:50 GRID CASTING MACHINE OPERATOR HELPER.GDOTT Vomiting No 03/09/24 13:50 GRID CASTING MACHINE OPERATOR HELPER.GDOTT Anesthesia Postop Eval I: Fluid Summary Crystalloid volume administer 200 03/09/24 13:50 GRID CASTING MACHINE OPERATOR HELPER.GDOTT (ml) Colloids volume administered ( ml) Blood Product volume administered (ml) Total IV fluid infused 200 03/09/24 13:50 GRID CASTING MACHINE OPERATOR HELPER.GDOTT Anesthesia Postop Eval I: Summary Notes Anesthesia Complication No 03/09/24 13:50 GRID CASTING MACHINE OPERATOR HELPER.GDOTT Anesthesia Complication Comment: Post-operative progress note Anesthesia: Postop Eval II Evaluation Mental status: Awake and Calm Pain Level: 1 nausea: No Vomiting: No Complications Anesthesia Complication: No
--- NOTE | 2024-03-09 21:10 | PCM.POSTANE2 ---
Anesthesia Postop Eval I Sum Postop Eval Completion status Anesthesia document: Postop Eval 1 completed: Yes Anesthesia Postop Eval I Summary Anesthesia Postop Eval I Summary: Anesthesia Postop Eval I: Assessment Summary Airway patent Yes 03/09/24 13:50 ROTARY PLANER SET UP OPERATOR.GDOTT Spontaneous unlabored Yes 03/09/24 13:50 ROTARY PLANER SET UP OPERATOR.GDOTT respirations Mental status Awake,Calm 03/09/24 13:50 ROTARY PLANER SET UP OPERATOR.GDOTT nausea No 03/09/24 13:50 ROTARY PLANER SET UP OPERATOR.GDOTT Vomiting No 03/09/24 13:50 ROTARY PLANER SET UP OPERATOR.GDOTT Anesthesia Postop Eval I: Fluid Summary Crystalloid volume administer 200 03/09/24 13:50 ROTARY PLANER SET UP OPERATOR.GDOTT (ml) Colloids volume administered ( ml) Blood Product volume administered (ml) Total IV fluid infused 200 03/09/24 13:50 ROTARY PLANER SET UP OPERATOR.GDOTT Anesthesia Postop Eval I: Summary Notes Anesthesia Complication No 03/09/24 13:50 ROTARY PLANER SET UP OPERATOR.GDOTT Anesthesia Complication Comment: Post-operative progress note Anesthesia: Postop Eval II Evaluation Mental status: Awake and Calm Pain Level: 1 nausea: No Vomiting: No Complications Anesthesia Complication: No
== END 2024-03-09 15:23 | disposition home or self-care (01) ==
LOC: SDC 10:48 → AC 10:58
PROVIDERS: PCP Family Medicine; Referring Provider Podiatrist; Visit Provider Podiatrist
PROC: (CPT 28820; principal; 2024-03-09 12:15)
DX: M86.172 Other acute osteomyelitis, left ankle and foot (principal); M06.9 Rheumatoid arthritis, unspecified; I48.0 Paroxysmal atrial fibrillation; M20.42 Other hammer toe(s) (acquired), left foot; L03.032 Cellulitis of left toe; I10 Essential (primary) hypertension; E78.5 Hyperlipidemia, unspecified; K21.9 Gastro-esophageal reflux disease without esophagitis; I25.2 Old myocardial infarction; Z79.01 Long term (current) use of anticoagulants; Z79.899 Other long term (current) drug therapy
CPT/HCPCS: 28820; 01480; 87070; 87075; 87077; 87186; 87205; 88305; 88311; A4216; J2405

== ENCOUNTER 2025-01-07 11:41 | Emergency (ER) | payer MEDICARE, OTHER, MEDICAID, SELFPAY ==
[2025-01-07] VITALS (44 sets, daily range): BP systolic 105–137; BP diastolic 59–115; PULSE 72–96; RESP 11–31; TEMP 36.5–37; O2SAT 94–100; BMI 27.5
--- NOTE | 2025-01-07 12:37 | EKG12_ITS ---
Test Reason : ALTERED LOC Blood Pressure : */* mmHG Vent. Rate : 89 BPM Atrial Rate : 97 BPM P-R Int : * ms QRS Dur : 144 ms QT Int : 448 ms P-R-T Axes : 128 -65 99 degrees QTcB Int : 545 ms Ventricular-paced rhythm Abnormal ECG Confirmed by JEANETTE LOCKHART, JAYMIE ([id number]), online editor TERI TORIBIO ([id number]) on 01/10/2025 8:17:35 AM Referred By: Confirmed By: JAYMIE REID MD
--- NOTE | 2025-01-07 12:40 | EDS_ITS ---
HPI History of Present Illness Chief Complaint: Alt LOC Detail of Chief Complaint: Mental status change and cognitive decline Informant: SNF Narrative Narrative: Patient presents to the emergency department from care home for concern for progressive decline. Currently being treated for UTI and was on Keflex and then was recently switched to cefdinir. Patient has history of chronic pain. Apparently care home has been try to get patient on hospice but family not agreeable to that. Patient is a very poor historian and really cannot give me much history but denies any chest pain or abdominal pain or significant complaints. [facility] Medical History MRSA (methicillin resistant staph aureus) culture positive History of complete heart block MRSA (methicillin resistant Staphylococcus aureus) infection COVID-19 (04/24/22) Gastroparesis Lives in care home Loss of hearing Wears glasses Wears dentures Anxiety Open wound Uses wheelchair Injury of head and neck Back pain Injury of back Non-smoker Hypertension History of echocardiogram Cardiology follow-up encounter History of pacemaker History of atrial fibrillation Radiculopathy Hypokalemia Dementia Rheumatoid arthritis Gout Mitral valve prolapse History of cardioversion (~04/23/19) Gout Diverticulitis Old myocardial infarction Paroxysmal atrial fibrillation Spinal stenosis of lumbar region GERD (gastroesophageal reflux disease) Rheumatoid arthritis Fibromyalgia Nonrheumatic mitral (valve) insufficiency Nonrheumatic mitral (valve) prolapse Screening for intestinal cancer Morbid obesity with BMI of 40.0-44.9, adult Recurrent pancreatitis Hyperlipidemia Familial combined hyperlipidemia Benign hypertension Home Medications Medication Instructions Recorded Last Taken Type donepezil 10 mg tablet (Aricept) 10 mg PO QHS dementia 11/03/19 12/24/19 08:00 History losartan 25 mg tablet 25 mg PO DAILY #90 tabs 05/2510/25/22 Rx potassium chloride 20 mEq 20 meq PO DAILY supplement # 90 tabs 06/09/20 Unknown Rx tablet,extended release(part/cryst) magnesium hydroxide 400 mg/5 mL 30 ml PO DAILY PRN sto mach upset 08/23/20 Unknown History oral suspension (Milk of Magnesia) nitroglycerin 0.4 mg sublingual 0.4 mg sublingual Q5-1 5M PRN chest 08/23/20 Unknown History tablet pain acetaminophen 500 mg tablet 1,000 mg PO BID PRN Pain O r Fever 08/10/21 10/25/22 History (Tylenol Extra Strength) aluminum-mag hydroxide-simethicone 30 ml PO Q6H PRN in digestion 08/10/21 Unknown History 200 mg-200 mg-20 mg/5 mL oral susp diclofenac sodium 1 % topical gel 2 g topical BID 07/25 09/14 Unknown History mineral oil (Fleet Mineral Oil 118 ml OK DAILY PRN con stipation 08/10/21 Unknown History enema) ondansetron HCl 4 mg tablet 4 mg PO Q6H PRN nausea and vomiting 08/10/21 Unknown History polyethylene glycol 3350 17 gram 17 g PO DAILY PRN con stipation 08/10/21 Unknown History oral powder packet (Miralax) apixaban 5 mg tablet (Eliquis) 5 mg PO BID 11/05/21 History allopurinol 300 mg tablet 150 mg PO HS gout 09/09/22 U nknown History pantoprazole 40 mg tablet,delayed 40 mg PO BID 3 10/25/22 History release furosemide 20 mg tablet 20 mg PO DAILY #7 tabs 10/26 Unknown Rx hydrocodone-acetaminophen 5-325mg 1 tab PO Q8H PRN lauren n 12/17/22 Unknown History 5mg-325mg zinc oxide 40 % topical ointment 1 applic topical ONCE PRN skin 12/17/22 Unknown History irritation ammonium lactate 12 % topical cream 1 applic topical Q HS FEET 08/06/23 Unknown History buprenorphine 15 mcg/hour weekly 1 patch transdermal S A 08/06/23 Unknown History transdermal patch (Butrans) mirtazapine 7.5 mg tablet 7.5 mg PO QHS 02/12/24 Unkno wn History multivitamin 1 tab PO QAM 02/12/24 Unknow n History Saccharomyces boulardii 250 mg 250 mg PO DAILY 5 Unknown History capsule (Daily Probiotic (S. boulardii)) acetaminophen 500 mg tablet 500 mg PO 1500 03/05/24 Un known History bisacodyl 10 mg rectal suppository 10 mg OK Q8H PRN co nstipation 01/07/25 Unknown History cefdinir 300 mg capsule 300 mg PO BID 01/07/25 Unkno wn History Allergy/AdvReac Type Severity Reaction Status Date / Time levofloxacin (From Programmr) Allergy PT UNSURE Verified 01/07/25 11:47 OF REACTION Penicillins Allergy Hives Verified 01/07/25 11:47 tolterodine (From Detrol) Allergy PT UNSURE Verified 01/07/25 11:47 OF REACTION Family History Sister Hypertension Other Arthritis Cancer Diabetes Surgical History History of amputation of lesser toe of left foot (10/25/22) Status post amputation of toe of left foot H/O endoscopic retrograde cholangiopancreatography History of back surgery History of left knee replacement History of appendectomy History of cholecystectomy History of cardiac radiofrequency ablation (~10/2008) S/P lumbar fusion Social History Smoking Status: Never smoker alcohol intake: never substance use type: does not use what type of physical activity do you participate in: none seatbelt use: always do you feel safe at home: Yes ROS ROS ED ROS Narrative Very poor historian and really cannot give me significant history. She denies pain anywhere currently. Review of Systems ROS Unobtainable: due to mental status and other Constitutional Constitutional ED: Reports lethargy; Denies chills, fever(s), sweats or weight loss Eyes Eyes: Denies blurry vision, change in vision or diplopia ENT ENT ED: Denies rhinorrhea or sore throat Cardiovascular Cardiovascular: Denies chest pain, orthopnea or racing heartbeat Respiratory/Chest Respiratory/Chest: Denies cough, dyspnea, dyspnea on exertion, orthopnea or sputum Gastrointestinal Gastrointestinal: Denies abdominal pain, diarrhea, nausea or vomiting Genitourinary Genitourinary ED: Denies dysuria, hematuria or urinary frequency Musculoskeletal Musculoskeletal: Denies arthralgias, back pain, myalgias or neck pain Integumentary Denies abscess, Abrasions or rash Neurologic Neurologic: Denies headache(s) or weakness Psychiatric Psychiatric: Denies anxiety, depression or suicidal thoughts Endocrine Endocrinology: Denies polydipsia, polyphagia or polyuria Hematologic/Lymphatic Hematologic/Lymphatic: Denies easy bleeding, easy bruising or lymphadenopathy Allergic/Immunologic Allergic/Immunologic ED: Denies mouth swelling, tongue swelling or urticaria EXAM Physical Exam Const Vital Signs: 01/07/25 11:42 01/07/25 11:47 11/14/25 13:42 Temperature 97.7 F L 97.7 F L Temperature Source Oral Oral Pulse Rate 96 95 95 Respiratory Rate 17 16 11 L Blood Pressure 137/72 H 118/72 105/68 Blood Pressure Mean 93 87 80 Pulse Ox 99 97 100 Oxygen Delivery Method Room Air Room Air Room Air Positive well nourished and well developed General Appearance ED: well developed and NAD HEENT Reports TM's clear and moist mucous membranes normocephalic and atraumatic; Negative for trauma or tenderness Tympanic Membrane ED: Yes TM's clear Eyes PERRL and EOMs intact bilaterally General Eye ED: Negative for pale conjunctiva or scleral icterus Neck no lymphadenopathy, supple and no JVD General: Negative for tenderness Chest Wall inspection of chest normal and palpation of chest normal Chest: Negative for tenderness Resp normal respiratory effort and clear to auscultation bilaterally Effort and Inspection: Negative for respiratory distress or pain with movement Auscultation: Negative for rhonchi, wheezes or diminished lung sounds Cardio regular rate, regular rhythm, S1 normal heart sound, S2 normal heart sound and no murmurs Peripheral Pulses: pulses 2+ throughout GI normal to inspection, nondistended, normoactive bowel sounds, soft to palpation, non-distended and no masses GI Narrative: Morbidly obese. Denies tenderness on exam. There is no rebound or rigidity. Back/Spine no CVA tenderness and no thoracic nor lumbar tenderness Extremity normal to inspection General Extremety ED: Negative for edema General Extremity: Negative for edema Neuro oriented x3, CN's II-XII intact bilaterally, no sensory deficits noted and gait normal Neuro Narrative: Patient moves all 4 extremities although she generally weak and EMS and care home stated that she has some chronic right sided weakness. Patient alert to person but not to time or place. Sensorium / Orientation: awake and alert; Negative for oriented to person, oriented to place or oriented to time Motor Exam: strength 5/5 throughout and strength abnormal Psych mental status grossly normal Skin no rashes or lesions noted and no wounds MDM MDM MDM Narrative Medical decision making narrative: Patient presents to the emergency department at request of family and care home for progressive decline at the care home. She is currently being treated for UTI. Patient is really a poor historian and really denies complaints for me. She is currently on cefdinir. IV line established. CT scan of the brain was obtained because of concern for mental status change and the fact that she is on apixaban to rule out intracranial hemorrhage. CT was unremarkable. CBC with differential obtained showed white of 7.1 with hemoglobin of 15 and platelet count of 154. Chemistries unremarkable. BUN was 25 and creatinine 0.75. Lactate normal 1.0. LFTs were normal. Urinalysis showed 500 leukocyte esterase and 10-25 WBCs with no bacteria. Urine culture was sent. Chest x-ray obtained showed some mild cardiomegaly otherwise no signs of infection or other abnormality. At this point patient looks well clinically stable I feel she can be discharged back to the care home. Advised to follow-up with primary care physician within next 3 to 5 days Lab Data Attestation: I reviewed the patient's lab results. Labs: Laboratory Results - last 24 hr 01/07/25 01/07/25 01/07/25 12:34 12:50 13:49 WBC 7.1 RBC 4.54 Hgb 15.0 Hct 44.5 MCV 98.0 MCH 33.0 H MCHC 33.7 RDW Std Deviation 53.6 H RDW Coeff of Patel 18.4 H Plt Count 154 MPV 11.1 Immature Gran % (Auto) 0.400 Neut % (Auto) 67.4 Lymph % (Auto) 21.9 [place]ee % (Auto) 8.3 Eos % (Auto) 1.6 Baso % (Auto) 0.4 Absolute Neuts (auto) 4.8 Absolute Lymphs (auto) 1.55 Nucleated RBC % 0 Sodium 137 Potassium 4.2 Chloride 103 Carbon Dioxide 23.3 Anion Gap 11 BUN 25 H Creatinine 0.75 Estim Creat Clear Calc 53.93 Est GFR (MDRD) Non-Af 80 BUN/Creatinine Ratio 33.6 H Glucose 98 Lactic Acid 1.0 Calcium 10.0 Total Bilirubin 0.67 AST 29 ALT 20 Alkaline Phosphatase 212 H Troponin T High Sens 26 H Total Protein 7.5 Albumin 3.9 Globulin 3.6 Albumin/Globulin Ratio 1.1 Urine Color Yellow Urine Clarity Sl. Cloudy Urine pH 5.0 Ur Specific [place] 1.020 Urine Protein 30 H Urine Glucose (UA) Normal Urine Ketones 5 H Urine Occult Blood 25 H Urine Nitrite Negative Urine Bilirubin Negative Urine Urobilinogen Normal Ur Leukocyte Esterase 500 H Urine RBC 0 SEEN Urine WBC 10-25 SEEN Ur Squamous Epith Cells 0-5 SEEN Urine Bacteria 0 SEEN Urine Mucus 0 SEEN Radiography Diagnostic Testing: Clinical Impression(s) from Imaging Studies Brain CT 01/07/25 13:20 IMPRESSION: 1. No evidence of intracranial hemorrhage or acute ischemia. 2. Changes of chronic microvascular ischemia and volume loss. Reading Location: [facility] Chest X-Ray 01/07/25 13:25 IMPRESSION: Cardiac enlargement. Mitral valve calcification. Aortic atherosclerosis and tortuosity. Scarring in the lingula. Reading Location: [facility] 1 view chest x-ray obtained interpreted by myself as no evidence of infiltrate or pneumothorax or acute disease process. Radiology felt there was cardiac enlargement with mitral valve calcification and aortic atherosclerosis and tortuosity. EKG Initial EKG: Attestation: I personally reviewed and interpreted this EKG as follows: Comments: Ventricularly paced rhythm with rate of 89 bpm Discharge Plan Triage Chief Complaint: Alt LOC ED Provider: Salas Chen Dx/Rx/DC Orders Clinical Impression: Acute confusion, Acute UTI Instructions: UTIs, ED Confusion Prescriptions: No Action acetaminophen [Tylenol Extra Strength] 500 mg tablet 1,000 mg PO BID PRN (Reason: Pain Or Fever) Rx Instructions: 500 mg orally Take 1 tablet PM, 2 tablets AM, 2 tablets HS PRN; donepezil [Aricept] 10 mg tablet 10 mg PO QHS magnesium hydroxide [Milk of Magnesia] 400 mg/5 mL suspension 30 ml PO DAILY PRN (Reason: stomach upset) nitroglycerin 0.4 mg tablet, sublingual 0.4 mg sublingual Q5-15M PRN (Reason: chest pain) Rx Instructions: do not exceed 3 doses per episode diclofenac sodium 1 % gel 2 g topical BID Rx Instructions: apply to single elbow, wrist or hand; for hand includes palm/fingers/back of hand polyethylene glycol 3350 [Miralax] 17 gram powder in packet 17 g PO DAILY PRN (Reason: constipation) mineral oil [Fleet Mineral Oil] Enema 118 ml OK DAILY PRN (Reason: constipation) Rx Instructions: discard any unused portion alum-mag hydroxide-simeth 200-200-20 mg/5 mL suspension 30 ml PO Q6H PRN (Reason: indigestion) ondansetron HCl 4 mg tablet 4 mg PO Q6H PRN (Reason: nausea and vomiting) hydrocodone-acetaminophen 5-325 mg tablet 1 tab PO Q8H PRN (Reason: pain) zinc oxide 40 % ointment 1 applic topical ONCE PRN (Reason: skin irritation) multivitamin Tablet 1 tab PO QAM mirtazapine 7.5 mg tablet 7.5 mg PO QHS ammonium lactate 12 % cream 1 applic topical QHS buprenorphine [Butrans] 15 mcg/hour patch weekly 1 patch transdermal SA allopurinol 300 mg tablet 150 mg PO HS pantoprazole 40 MG tablet 40 mg PO BID furosemide 20 mg Tablet 20 mg PO DAILY Qty: 7 0RF Saccharomyces boulardii [Daily Probiotic (S. boulardii)] 250 mg capsule 250 mg PO DAILY acetaminophen 500 mg Tablet 500 mg PO 1500 bisacodyl 10 mg suppository 10 mg OK Q8H PRN (Reason: constipation) cefdinir 300 mg capsule 300 mg PO BID losartan 25 mg tablet 25 mg PO DAILY Qty: 90 3RF potassium chloride 20 mEq tablet,ER particles/crystals 20 meq PO DAILY Qty: 90 3RF Eliquis 5 mg tablet 5 mg PO BID Primary Care Provider: Miles Reid Referrals: Miles Reid MD [Primary Care Provider, Family Practice] - 3-5 Days Print Language: Bulgarian Disposition Disposition: Home, Self Care
[2025-01-07] MEDS: 0.9% Normal Saline (1000mL) 1,000 ML 150 ML IV (12:52)
[2025-01-07 13:04] LABS: Hematocrit 44.5 % (37-47); Hemoglobin 15.0 g/dL (12.0-15.0); Immature Granulocytes Count 0.030 X10^3/uL (0.0-0.0); Mean Corp Hgb Conc 33.7 g/dL (32-36); Mean Corpuscular Volume 98.0 fL (81-99); Mean Platelet Vol. 11.1 fl (6.2-12.0); NRBC Flagged by Analyzer 0 % (0-5); Platelet Count 154 K/mm3 (150-450); RBC Distribution Width CV 18.4 % (11.6-14.6); RBC Distribution Width SD 53.6 fl (35.1-43.9); Red Blood Count 4.54 M/mm3 (4.2-5.4); White Blood Count 7.1 K/mm3 (4.4-11.0)
--- NOTE | 2025-01-07 13:20 | CT_ITS ---
PROCEDURE: BRAIN/HEAD WITHOUT CONTRAST 01/07/2025 REASON FOR EXAM: CONFUSION TECHNIQUE: Procedure Code: CTBR Modality: CT Procedure: BRAIN/HEAD WITHOUT CONTRAST Coronal and Sagittal reconstruction series were provided. One or more dose reduction techniques were used (e.g., Automated exposure control, adjustment of the mA and/or kV according to patient size, use of iterative reconstruction technique. RADIATION DOSE SUMMARY: CTDlvol: 47 mGy DLP: 1013 mGycm COMPARISON: September 03, 2019, November 25, 2018. However, reports were unavailable for review. FINDINGS: Brain: There is no evidence of hemorrhage, acute ischemia or mass. No extra- axial fluid collection, midline shift or mass effect. Low-density is present in the periventricular white matter, deep white matter and subcortical white matter. CSF Spaces: Advanced generalized cerebral atrophy. Sinuses/Mastoids: Partial opacification of the inferior mastoid air cells. Otherwise, the mastoids are clear. Paranasal sinuses are clear. Bones: No fracture CT/Brain/Head without Contrast IMPRESSION: 1. No evidence of intracranial hemorrhage or acute ischemia. 2. Changes of chronic microvascular ischemia and volume loss. Reading Location: [id number]
--- NOTE | 2025-01-07 13:25 | RAD_ITS ---
PROCEDURE: CHEST 1 VIEW (PORTABLE) 01/07/2025 REASON FOR EXAM: WEAKNESS TECHNIQUE: Frontal view of the chest. COMPARISON: September 10, 2019 FINDINGS: Hardware: EKG leads. Loop recorder. Heart: Enlarged. Mitral valve annular calcification. The aorta is tortuous and atherosclerotic. Lungs: Linear scarring in the lingula confirmed on prior CT. Lungs are hypoventilated. No consolidation seen. Bones: Degenerative changes are identified within the thoracic spine. RAD/Chest 1 View (Portable) IMPRESSION: Cardiac enlargement. Mitral valve calcification. Aortic atherosclerosis and t ortuosity. Scarring in the lingula. Reading Location: [id number]
[2025-01-07 13:41] LABS: AST(SGOT) 29 U/L (<=31); Alanine Aminotransfer ALT/SGPT 20 U/L (<=34); Albumin, Serum 3.9 g/dL (3.4-4.8); Alkaline Phosphatase 212 U/L (35-104); Anion Gap 11 (5-15); BUN 25 mg/dL (4-19); BUN/Creat Ratio 33.6 RATIO (10-20); Calcium,Total 10.0 mg/dL (7.6-11.0); Carbon Dioxide 23.3 mmol/L (21.0-32.0); Chloride 103 mmol/L (98-108); Estimated Creatinine Clearance 53.93 ml/min (50-250); Globulin 3.6 g/dL (2.2-4.2); Glucose 98 mg/dL (70-99); Potassium 4.2 mmol/L (3.3-5.1); Troponin T High Sensitivity 26 ng/L (<=14)
[2025-01-07 13:59] LABS: Mucous, Urine 0 SEEN /hpf (<or=2+); Red Blood Cells-Urine 0 SEEN /hpf (0-5)
[2025-01-07 14:03] LABS: Color, Urine Yellow (Yellow); Glucose, Dipstick Normal (Normal); Ketone-Dipstick 5 mg/dl (Negative); Leukocyte Esterase-Dipstick 500 /ul (Negative); Nitrite-Dipstick Negative (Negative); Occult Blood-Urine 25 /ul (Negative); Protein-Dipstick 30 mg/dl (Negative); Specific Gravity, Urine 1.020 (1.002-1.030); Urine Bilirubin Dipstick Negative (Negative)
[2025-01-07 14:13] LABS: Squamous Epithelial Cells - UA 0-5 SEEN /hpf (5-10)
--- NOTE | 2025-01-07 14:20 | ED.RN ---
FELICITA GALLO CALLED AND PT. UPDATE PROVIDED
--- NOTE | 2025-01-07 15:14 | ED.RN ---
ATTEMPTED TO CALL REPORT TO THE [facility]. ON HOLD FOR 8 MINUTES. NO NURSE REACHED AT THIS TIME.
[2025-01-07 15:17] LABS: Troponin T High Sens 2 HR 21 ng/L (<=14)
--- NOTE | 2025-01-07 16:01 | ED.RN ---
REPORT CALLED TO THE [facility] NURSE,JAKY, AT THIS TIME.
--- NOTE | 2025-01-07 16:03 | ED.RN ---
PT. SISTER PROVIDED WITH UPDATE AND PLAN OF CARE.
== END 2025-01-07 18:57 | disposition home or self-care (01) ==
PROVIDERS: Emergency Provider Emergency Medicine; PCP Family Medicine; Visit Provider Emergency Medicine
DX: R41.0 Disorientation, unspecified (principal); F03.90 Unspecified dementia, unspecified severity, without behavioral disturbance, psychotic disturbance, mood disturbance, and anxiety; I48.0 Paroxysmal atrial fibrillation; N39.0 Urinary tract infection, site not specified; E78.49 Other hyperlipidemia; Z51.5 Encounter for palliative care; I10 Essential (primary) hypertension; K21.9 Gastro-esophageal reflux disease without esophagitis; Z79.01 Long term (current) use of anticoagulants
CPT/HCPCS: 70450; 71045; 80053; 81001; 83605; 84484; 85025; 87040; 87086; 93005; 96360; 96361; 99285; P9612; A4216